=== PATIENT | female | born 1950 | race Caucasian/White ===

== ENCOUNTER → 2020-09-29 14:01 | Outpatient (BNVA) | payer BC, SELFPAY | PROVIDERS: PCP Internal Medicine; Visit Provider Hospitalist | DX: Z76.89 Persons encountering health services in other specified circumstances (principal) ==

== ENCOUNTER → 2020-12-02 14:53 | Outpatient (BNVA) | payer BC, SELFPAY | PROVIDERS: PCP Internal Medicine; Visit Provider Hospitalist ==

== ENCOUNTER → 2021-06-06 15:29 | Outpatient (BNVA) | payer BC, SELFPAY | PROVIDERS: Visit Provider Hospitalist ==

== ENCOUNTER → 2021-12-05 15:46 | Outpatient (BNVA) | payer BC, SELFPAY | PROVIDERS: PCP Internal Medicine; Visit Provider Hospitalist | DX: J43.2 Centrilobular emphysema (principal); R91.1 Solitary pulmonary nodule; R91.8 Other nonspecific abnormal finding of lung field; R06.00 Dyspnea, unspecified; K21.9 Gastro-esophageal reflux disease without esophagitis; Z85.118 Personal history of other malignant neoplasm of bronchus and lung ==

== ENCOUNTER → 2022-12-06 14:46 | Outpatient (BNVA) | payer BC, SELFPAY | PROVIDERS: PCP Internal Medicine; Visit Provider Hospitalist | DX: Z13.89 Encounter for screening for other disorder (principal) ==

== ENCOUNTER → 2023-03-07 14:39 | Outpatient (BNVA) | payer BC, SELFPAY | PROVIDERS: PCP Internal Medicine; Visit Provider Hospitalist ==

== ENCOUNTER 2023-03-28 14:28 | Outpatient (REF) | payer BC, SELFPAY ==
--- NOTE | 2023-03-28 15:29 | PFT_ITS ---
INDICATION: COPD. SPIROMETRY: The FEV1 to FVC of 62% with an FEV1 of 1.95 L which is 93% predicted and FVC of 3.14 L which is 113% predicted. No significant response to bronchodilators noted. The RAH93-30 decreased down to 42% predicted. Maximum voluntary ventilation 81% predicted. LUNG VOLUMES: Total lung capacity 107% predicted with an expiratory reserve volume of 65% predicted. DIFFUSION CAPACITY: DLCO of 61% predicted. COMPARISONS: None. INTERPRETATION: There is an obstructive ventilatory defect consistent with mild COPD. There is also evidence of small airway disease. No significant response to bronchodilators noted. Lung volumes are normal and the patient does have mild diffusion impairment secondary to her COPD and also had lung surgeries. Clinical correlation warranted. MD CARLA Sutherland/DARYL / [phone]
== END 2023-03-28 14:29 | disposition home or self-care (01) ==
LOC: HO.RESP 14:28
PROVIDERS: PCP Internal Medicine; Visit Provider Hospitalist
DX: J44.9 Chronic obstructive pulmonary disease, unspecified (principal)
CPT/HCPCS: 94010; 94727; 94729

== ENCOUNTER → 2023-03-28 15:29 | Outpatient (BNV) | payer BC, SELFPAY | PROVIDERS: PCP Internal Medicine; Visit Provider Hospitalist | DX: J44.9 Chronic obstructive pulmonary disease, unspecified (principal) | CPT/HCPCS: 94060; 94727; 94729 ==

== ENCOUNTER 2023-05-06 14:42 | Outpatient (AMB) | payer BC, SELFPAY ==
[2023-05-06 14:52] VITALS: BP 118/70; PULSE 63; RESP 17; O2SAT 94; BMI 30.5
--- NOTE | 2023-05-06 14:52 | MHC.OFFVIS ---
Intake Vital Signs 05/06/23 14:52 Height 5 ft 3 in Weight 172 lb BMI 30.5 BP 118/70 Blood Pressure Location Lt brachial Position Sitting Respiration 17 Pulse 63 Pulse Source Pulse Oximeter Pulse Oximetry (%) 94 Oxygen Delivery Method Room Air Intake Visit Reasons: PFT Results Follow Up Technology Sales Representative Required: No Allergies gabapentin [Neurontin] Allergy (Severe, Verified 05/06/23 14:55) Swelling latex Allergy (Severe, Verified 05/06/23 14:55) Swelling levofloxacin [Levaquin] Allergy (Severe, Verified 05/06/23 14:55) Swelling Aspirin Allergy (Severe, Uncoded 05/06/23 14:55) Swelling HPI HPI Comments History of Present Illness Details The patient is a 73-year-old woman known history of lung cancers status post resections in addition to COPD. Overall she is doing very well. She is staying active she denies any significant dyspnea on exertion she has been using the inhalers as prescribed. Her last CT scan of the chest to assess her pulmonary nodules was back in March 2019 to follow-up a new pulmonary nodule. The appeared to be stable. The patient has had waxing waning pulmonary nodules. At this point the patient should have another CT scan of the chest in March 2020. Otherwise patient is without any other complaints at this time. 03/25/2020 the patient is here for pulmonary follow-up visit. Overall she is doing well from a respiratory status. She does have some shortness of breath with activity, mild in severity. Does have cough intermittently. She does take respiratory medications without any significant issue. We did review her CT scan of the chest from 2019, 2018 and also 2018. She has had multiple pulmonary nodules and she has had a history of cancer. Most recent CT scan of the chest demonstrates she is a slight change in the consistency of the right upper lobe nodular density. It appears to be little more solid and slightly more elongated. Again this may be just away was caught or the resolution. Therefore, at this point we will repeat the CT scan in 6 months. 09/29/2020 the patient is here for pulmonary follow-up visit. Overall she does complaint of dyspnea on exertion. Moderate severity. Does not appear to be getting any better. She has gained some weight which may be contributing. We did look at her most recent CT scan of the chest that she had a [facility]. I personally reviewed the CT scan with the patient.. I do not see any concerning nodular densities. At this point we can go back to the once a year CT scans. December 02, 2020 the patient is here for pulmonary follow-up visit. Since we last spoke she was diagnosed with colon cancer and screening colonoscopy. She was relatively asymptomatic. She now went to [place] and now it will be undergoing surgery after they do a full evaluation. From a respiratory status she is doing okay. Does have some dyspnea on exertion [id number] severity. Does get better with rest. Her last CT scan of the chest was reassuring with stable pulmonary nodules without any evidence of any metastatic disease that we can see at this point to the lungs. The patient is medically optimized from a respiratory status and is doing well from a pulmonary standpoint and will be able to consent for surgery for both anesthesia and the surgical intervention that she needs to have in [place]. The patient understands the risks which include atelectasis, hypoxia, prolonged mechanical ventilation and pneumonia. The risks at this point her minimal for her and she is able to have surgery from a pulmonary standpoint. 06/06/2021 the patient is here for a pulmonary follow-up visit. Since we last spoke the patient did undergo surgery for an early stage colon cancer. She was able to get it fully resected. she did not require chemotherapy which is reassuring. She did have a repeat CT scan of the chest at [facility]. no obvious concerns noted. However, need to compared to the CT scan from [facility] to be sure completely. For the last few weeks she has noticed increasing shortness of breath with exertion moderate severity. She actually felt well after surgery. She has been using her Symbicort but typically just once a day. She needs to maximize at this time to twice a day and I did recommend she start Spiriva in conjunction to optimize his respiratory medication therapy. 12/05/2021 the patient is here for pulmonary follow-up visit. Overall the patient has been well from a respiratory status. She was concerned because her [facility] laboratory came back elevated. Therefore she underwent a PET/ CT scan at [facility]. They could not find any evidence of any cancer. she is now due for colonoscopy. From a pulmonary standpoint her CT scans have been stable. She is following closely with serial CT scans. She is complaining of chest congestion mucus buildup and raspiness of the voice. She does comment also that she has developed increased reflux symptoms. I do believe her reflux symptoms are aggravating her larynx and resulting in the raspiness and mucus buildup. 06/05/2022 the patient is here for a pulmonary follow-up visit. Overall she is doing well. She continues use her respiratory therapy. She does not see any significant improvement when she does use the inhalers I did advise again try to cut down a little bit in the he continues to do about the same. She does have dyspnea on exertion. She also complains of reflux disease. She does take omeprazole in the morning and also Pepcid at nighttime. He seems to be helping. She does have episodes where she loses the ability to breathe brief few seconds. This sound like laryngospasm. Explained to her that the triggers could be the cause including underlying laryngeal penetration for reflux and/or postnasal drip resulting living will spasms. She should be sleeping elevated and wanting the reflux diet. The patient will follow up in [place] for the abnormal CT will. I believe she has been undergo a CT scan of the chest available. However she will be following up with them at the end of the year. She will not sure that I get a copy of the CT scan of the chest will for week follow-up with pulmonary nodules. Once the patient is without any other complaints. 12/06/2022 the patient is here for a pulmonary follow-up visit. Overall she is doing well until several weeks ago when she started developing a worsening productive cough. Moderate in severity. Initially was productive with yellow sputum, but now is non productive. Denies fever or chills. She continues use her respiratory therapy. She does not see any significant improvement when she does use the inhalers. On exam, she does have some wheezing. I will prescribe a course of prednisone. 03/07/2023 the patient is here for a pulmonary follow-up visit. She complains of worsening shortness of breath with minimal activity. She has been struggling with her breathing. Moderate severity. She took a few days of the prednisone during the last visit because of the exacerbation but she stop the because her sugars were elevated. She continues on a respiratory medicine. Is only partially helpful. On exam she actually has relatively normal breath sounds. No significant rhonchi or wheezing noted. I do believe the patient has gained weight and she is more deconditioning. We did talk about getting pulmonary function studies and starting pulmonary rehabilitation. The patient will go ahead and proceed with this process. As far as the other alternative medications we can consider Daliresp as a good option to minimize the steroid use specially since she cannot take the prednisone because of the elevated blood sugars. Her last CT scan of the chest was back in August. Otherwise patient is doing well. Likely will need follow-up imaging studies the end of this year or next year. We will discuss that further during the next follow-up in the fall. 05/06/2023 the patient is here for a pulmonary follow-up visit. Overall the patient is doing well. She ended up having her pulmonary rehabilitation at the [facility] through a cancer survivorship program. This appears to be working much better. She has been feeling better less shortness of breath. She continues her respiratory therapy. We did review her pulmonary function studies demonstrating only a mild obstructive process. She does have moderate diffusion impairment but she has had multiple surgeries. Overall very reassuring PFTs. She is that a follow-up in [place] the next few months. She should have a CT scan of chest August 2024 in [place]. Otherwise she will continue with current respiratory therapy and will follow-up in 6 months time. If any issues arise the patient will call for further evaluation. [facility] Medical History (Updated 12/09/22 @ 21:24 by Morales Daniel MD) Carotid stenosis, asymptomatic Colon cancer COPD (chronic obstructive pulmonary disease) Dyspnea GERD (gastroesophageal reflux disease) Lung cancer Pre-op chest exam Pulmonary nodule Pulmonary nodules Social History (Updated 12/05/21 @ 15:54 by SHIRA Bose) Patient Tobacco Use Status: Former Tobacco user Tobacco use type: Cigarette Years Smoked: 20+ Years Review of Systems Const Denies night sweats ENT Denies change in voice, Denies lip swelling, Denies mouth pain, Reports nasal congestion, Reports nasal discharge and Denies tongue swelling Card Denies chest pain, Denies dyspnea and Reports dyspnea on exertion Resp Reports cough, Denies dyspnea and Reports dyspnea on exertion GI Reports dyspepsia and Reports heartburn Musc Denies no additional complaints Neuro Denies Neuro-related abnormal movements Psych Denies no additional complaints Hammad/Lymph Denies easy bleeding and Denies lymphadenopathy Aller/Immun Denies lip swelling and Denies tongue swelling Physical Exam Vital Signs: Last Vital Signs Pulse 63 05/06/23 14:52 Resp 17 05/06/23 14:52 BP 118/70 05/06/23 14:52 Pulse Ox 94 05/06/23 14:52 Oxygen Delivery Method Room Air 05/06/23 14:52 BMI result Body Mass Index 30.5 Const General: alert HEENT General nose exam: Abnormal external nose present and Nasal discharge present Eyes Pupils: Equal, round and reactive pupils present Neck Neck: Yes normal visual inspection, Yes full ROM and Yes no lymphadenopathy Chest Chest palpation & inspection: normal inspection of the chest Resp Effort & Inspection: normal respiratory effort Auscultation: no wheezes and diminished lung sounds Cardio Rate: regular rate Rhythm: regular rhythm Heart sounds: S1 normal heart sound present and S2 normal heart sound present GI Palpation (GI): Soft to palpation and nontender Auscultation: normal bowel sounds General: Yes no CVA tenderness Back/Spine/Pelvis Back: no CVA tenderness Skin General skin exam: rashes and/or lesions noted Neuro Cranial nerves: Yes Equal, round and reactive pupils present Assessment & Plan Assessment & Plan (1) COPD (chronic obstructive pulmonary disease): Code(s): J44.9 - Chronic obstructive pulmonary disease, unspecified Qualifiers: COPD type: COPD with acute exacerbation Qualified Code(s): J44.1 - Chronic obstructive pulmonary disease with (acute) exacerbation (2) Pulmonary nodules: Code(s): R91.8 - Other nonspecific abnormal finding of lung field (3) Dyspnea: Comment: Likely multifactorial. Does have ongoing COPD in addition to multiple lung resections. Code(s): R06.00 - Dyspnea, unspecified Qualifiers: Dyspnea type: dyspnea on exertion Qualified Code(s): R06.00 - Dyspnea, unspecified (4) Pulmonary nodule: Code(s): R91.1 - Solitary pulmonary nodule (5) GERD (gastroesophageal reflux disease): Code(s): K21.9 - Gastro-esophageal reflux disease without esophagitis Qualifiers: Esophagitis presence: without esophagitis Qualified Code(s): K21.9 - Gastro-esophageal reflux disease without esophagitis Plan Continue Symbicort continue Spiriva CT scan of the chest that be done [place] 09/04/2023 continue exercise regimen reflux diet Continue PPI cont Pepcid at night F/U 6 months Coding Level of Care Code Est Pt Level 4 (66866) Diagnoses COPD (chronic obstructive pulmonary disease) J44.1 COPD type: COPD with acute exacerbation Pulmonary nodules R91.8 Dyspnea R06.00 Dyspnea type: dyspnea on exertion Pulmonary nodule R91.1 GERD (gastroesophageal reflux disease) K21.9 Esophagitis presence: without esophagitis Time Spent (min) 17
== END 2023-05-06 15:20 | disposition home or self-care (01) ==
PROVIDERS: PCP Internal Medicine; Visit Provider Hospitalist
DX: J44.1 Chronic obstructive pulmonary disease with (acute) exacerbation (principal); R91.8 Other nonspecific abnormal finding of lung field; R06.00 Dyspnea, unspecified; R91.1 Solitary pulmonary nodule; K21.9 Gastro-esophageal reflux disease without esophagitis
CPT/HCPCS: 99214

== ENCOUNTER → 2023-05-06 14:42 | Outpatient (BNVA) | payer BC, SELFPAY | PROVIDERS: PCP Internal Medicine; Visit Provider Hospitalist ==

== ENCOUNTER 2023-12-23 14:29 | Outpatient (AMB) | payer BC, SELFPAY ==
[2023-12-23 14:35] VITALS: PULSE 84; O2SAT 94; BMI 28.3
--- NOTE | 2023-12-23 14:35 | MHC.OFFVIS ---
Intake Vital Signs 12/23/23 14:35 Height 5 ft 4 in Weight 165 lb BMI 28.3 Pulse 84 Pulse Source Pulse Oximeter Pulse Oximetry (%) 94 Oxygen Delivery Method Room Air Intake Visit Reasons: COPD Operating Room Assistant Required: No Allergies latex Allergy (Severe, Verified 12/23/23 14:36) Swelling levofloxacin [Levaquin] Allergy (Severe, Verified 12/23/23 14:36) Swelling Aspirin Allergy (Severe, Uncoded 12/23/23 14:36) Swelling HPI HPI Comments History of Present Illness Details The patient is a 73-year-old woman known history of lung cancers status post resections in addition to COPD. Overall she is doing very well. She is staying active she denies any significant dyspnea on exertion she has been using the inhalers as prescribed. Her last CT scan of the chest to assess her pulmonary nodules was back in March 2019 to follow-up a new pulmonary nodule. The appeared to be stable. The patient has had waxing waning pulmonary nodules. At this point the patient should have another CT scan of the chest in March 2020. Otherwise patient is without any other complaints at this time. 03/25/2020 the patient is here for pulmonary follow-up visit. Overall she is doing well from a respiratory status. She does have some shortness of breath with activity, mild in severity. Does have cough intermittently. She does take respiratory medications without any significant issue. We did review her CT scan of the chest from 2019, 2018 and also 2018. She has had multiple pulmonary nodules and she has had a history of cancer. Most recent CT scan of the chest demonstrates she is a slight change in the consistency of the right upper lobe nodular density. It appears to be little more solid and slightly more elongated. Again this may be just away was caught or the resolution. Therefore, at this point we will repeat the CT scan in 6 months. 09/29/2020 the patient is here for pulmonary follow-up visit. Overall she does complaint of dyspnea on exertion. Moderate severity. Does not appear to be getting any better. She has gained some weight which may be contributing. We did look at her most recent CT scan of the chest that she had a [facility]. I personally reviewed the CT scan with the patient.. I do not see any concerning nodular densities. At this point we can go back to the once a year CT scans. December 02, 2020 the patient is here for pulmonary follow-up visit. Since we last spoke she was diagnosed with colon cancer and screening colonoscopy. She was relatively asymptomatic. She now went to [place] and now it will be undergoing surgery after they do a full evaluation. From a respiratory status she is doing okay. Does have some dyspnea on exertion [id number]-gn-[id number] severity. Does get better with rest. Her last CT scan of the chest was reassuring with stable pulmonary nodules without any evidence of any metastatic disease that we can see at this point to the lungs. The patient is medically optimized from a respiratory status and is doing well from a pulmonary standpoint and will be able to consent for surgery for both anesthesia and the surgical intervention that she needs to have in [place]. The patient understands the risks which include atelectasis, hypoxia, prolonged mechanical ventilation and pneumonia. The risks at this point her minimal for her and she is able to have surgery from a pulmonary standpoint. 06/06/2021 the patient is here for a pulmonary follow-up visit. Since we last spoke the patient did undergo surgery for an early stage colon cancer. She was able to get it fully resected. she did not require chemotherapy which is reassuring. She did have a repeat CT scan of the chest at [facility]. no obvious concerns noted. However, need to compared to the CT scan from [facility] to be sure completely. For the last few weeks she has noticed increasing shortness of breath with exertion moderate severity. She actually felt well after surgery. She has been using her Symbicort but typically just once a day. She needs to maximize at this time to twice a day and I did recommend she start Spiriva in conjunction to optimize his respiratory medication therapy. 12/05/2021 the patient is here for pulmonary follow-up visit. Overall the patient has been well from a respiratory status. She was concerned because her [facility] laboratory came back elevated. Therefore she underwent a PET/ CT scan at [facility]. They could not find any evidence of any cancer. she is now due for colonoscopy. From a pulmonary standpoint her CT scans have been stable. She is following closely with serial CT scans. She is complaining of chest congestion mucus buildup and raspiness of the voice. She does comment also that she has developed increased reflux symptoms. I do believe her reflux symptoms are aggravating her larynx and resulting in the raspiness and mucus buildup. 06/05/2022 the patient is here for a pulmonary follow-up visit. Overall she is doing well. She continues use her respiratory therapy. She does not see any significant improvement when she does use the inhalers I did advise again try to cut down a little bit in the he continues to do about the same. She does have dyspnea on exertion. She also complains of reflux disease. She does take omeprazole in the morning and also Pepcid at nighttime. He seems to be helping. She does have episodes where she loses the ability to breathe brief few seconds. This sound like laryngospasm. Explained to her that the triggers could be the cause including underlying laryngeal penetration for reflux and/or postnasal drip resulting living will spasms. She should be sleeping elevated and wanting the reflux diet. The patient will follow up in [place] for the abnormal CT will. I believe she has been undergo a CT scan of the chest available. However she will be following up with them at the end of the year. She will not sure that I get a copy of the CT scan of the chest will for week follow-up with pulmonary nodules. Once the patient is without any other complaints. 12/06/2022 the patient is here for a pulmonary follow-up visit. Overall she is doing well until several weeks ago when she started developing a worsening productive cough. Moderate in severity. Initially was productive with yellow sputum, but now is non productive. Denies fever or chills. She continues use her respiratory therapy. She does not see any significant improvement when she does use the inhalers. On exam, she does have some wheezing. I will prescribe a course of prednisone. 03/07/2023 the patient is here for a pulmonary follow-up visit. She complains of worsening shortness of breath with minimal activity. She has been struggling with her breathing. Moderate severity. She took a few days of the prednisone during the last visit because of the exacerbation but she stop the because her sugars were elevated. She continues on a respiratory medicine. Is only partially helpful. On exam she actually has relatively normal breath sounds. No significant rhonchi or wheezing noted. I do believe the patient has gained weight and she is more deconditioning. We did talk about getting pulmonary function studies and starting pulmonary rehabilitation. The patient will go ahead and proceed with this process. As far as the other alternative medications we can consider Daliresp as a good option to minimize the steroid use specially since she cannot take the prednisone because of the elevated blood sugars. Her last CT scan of the chest was back in August. Otherwise patient is doing well. Likely will need follow-up imaging studies the end of this year or next year. We will discuss that further during the next follow-up in the fall. 05/06/2023 the patient is here for a pulmonary follow-up visit. Overall the patient is doing well. She ended up having her pulmonary rehabilitation at the [facility] through a cancer survivorship program. This appears to be working much better. She has been feeling better less shortness of breath. She continues her respiratory therapy. We did review her pulmonary function studies demonstrating only a mild obstructive process. She does have moderate diffusion impairment but she has had multiple surgeries. Overall very reassuring PFTs. She is that a follow-up in [place] the next few months. She should have a CT scan of chest August 2024 in [place]. Otherwise she will continue with current respiratory therapy and will follow-up in 6 months time. If any issues arise the patient will call for further evaluation. 12/23/2023 the patient is here for a pulmonary follow-up visit. Overall the patient has been doing well from a respiratory status. She has been following closely with [facility]. She has had a history of lung cancer x2 and more recently colon cancer. She has been getting CT scans of the abdomen and chest every 6 months in [place]. The patient is concerned because now she is going to change insurance companies and uncovered enough are any more. She is going to need a local oncologist to continue monitoring closely her cancer history. She has been cancer free now for about 3 years. I will refer her to a local hemo tolerating oncology's specialist. In the meantime the patient continues use respiratory therapy with good effect. Although, the appeared to be very expensive specially the Spiriva. Will go ahead and switch her over to Breztri to simplify her regimen. No need for prednisone. She does not use a rescue inhaler often. [facility] Medical History (Updated 12/23/23 @ 14:51 by Morales Daniel MD) Carotid stenosis, asymptomatic GERD (gastroesophageal reflux disease) Colon cancer Pre-op chest exam Lung cancer Pulmonary nodules Dyspnea COPD (chronic obstructive pulmonary disease) Pulmonary nodule Social History (Updated 12/05/21 @ 15:54 by SHIRA Bose) Patient Tobacco Use Status: Former Tobacco user Tobacco use type: Cigarette Years Smoked: 20+ Years Review of Systems Const Denies night sweats ENT Denies change in voice, Denies lip swelling, Denies mouth pain, Reports nasal congestion, Reports nasal discharge and Denies tongue swelling Card Denies chest pain, Denies dyspnea and Reports dyspnea on exertion Resp Reports cough, Denies dyspnea and Reports dyspnea on exertion GI Reports dyspepsia and Reports heartburn Musc Denies no additional complaints Neuro Denies Neuro-related abnormal movements Psych Denies no additional complaints Hammad/Lymph Denies easy bleeding and Denies lymphadenopathy Aller/Immun Denies lip swelling and Denies tongue swelling Physical Exam Vital Signs: Last Vital Signs Pulse 84 12/23/23 14:35 Pulse Ox 94 12/23/23 14:35 Oxygen Delivery Method Room Air 12/23/23 14:35 BMI result Body Mass Index 28.3 Const General: alert HEENT General nose exam: Abnormal external nose present and Nasal discharge present Eyes Pupils: Equal, round and reactive pupils present Neck Neck: Yes normal visual inspection, Yes full ROM and Yes no lymphadenopathy Chest Chest palpation & inspection: normal inspection of the chest Resp Effort & Inspection: normal respiratory effort Auscultation: no wheezes and diminished lung sounds Cardio Rate: regular rate Rhythm: regular rhythm Heart sounds: S1 normal heart sound present and S2 normal heart sound present GI Palpation (GI): Soft to palpation and nontender Auscultation: normal bowel sounds General: Yes no CVA tenderness Back/Spine/Pelvis Back: no CVA tenderness Skin General skin exam: rashes and/or lesions noted Neuro Cranial nerves: Yes Equal, round and reactive pupils present Assessment & Plan Assessment & Plan (1) COPD (chronic obstructive pulmonary disease): Code(s): J44.9 - Chronic obstructive pulmonary disease, unspecified Qualifiers: COPD type: COPD with acute exacerbation Qualified Code(s): J44.1 - Chronic obstructive pulmonary disease with (acute) exacerbation (2) Pulmonary nodules: Code(s): R91.8 - Other nonspecific abnormal finding of lung field (3) Dyspnea: Comment: Likely multifactorial. Does have ongoing COPD in addition to multiple lung resections. Code(s): R06.00 - Dyspnea, unspecified Qualifiers: Dyspnea type: dyspnea on exertion Qualified Code(s): R06.00 - Dyspnea, unspecified (4) Pulmonary nodule: Code(s): R91.1 - Solitary pulmonary nodule (5) GERD (gastroesophageal reflux disease): Code(s): K21.9 - Gastro-esophageal reflux disease without esophagitis Qualifiers: Esophagitis presence: without esophagitis Qualified Code(s): K21.9 - Gastro-esophageal reflux disease without esophagitis Plan Continue Symbicort continue Spiriva Trial Breztri CT scan of the chest that be done [place] continue exercise regimen reflux diet Continue PPI cont Pepcid at night referral to local oncologist to monitor her colon CA. No evidence of recurrence, but now needs to see a new specialist with her change in coverage F/U 6 months Orders: Referrals Hematology & Oncology Referral C18.9 - Malignant neoplasm of colon, unspecified, C34.90 - Malignant neoplasm of unspecified part of unspecified bronchus or lung Medications: New gyfjxmhjkw-bdavmtmp-divwlwcamf 160-9-4.8 mcg/actuation (Breztri Aerosphere) 2 inhalations inhalation BID 10.7 grams 0RF 30 days Coding Level of Care Code Est Pt Level 4 (29051) Diagnoses Chronic obstructive pulmonary disease with acute exacerbation J44.1 COPD type: COPD with acute exacerbation Pulmonary nodules R91.8 Dyspnea on exertion R06.00 Dyspnea type: dyspnea on exertion Pulmonary nodule R91.1 Gastroesophageal reflux disease without esophagitis K21.9 Esophagitis presence: without esophagitis Time Spent (min) 17
== END 2023-12-23 14:57 | disposition home or self-care (01) ==
PROVIDERS: PCP Internal Medicine; Visit Provider Hospitalist
DX: J44.1 Chronic obstructive pulmonary disease with (acute) exacerbation (principal); R91.8 Other nonspecific abnormal finding of lung field; R06.00 Dyspnea, unspecified; R91.1 Solitary pulmonary nodule; K21.9 Gastro-esophageal reflux disease without esophagitis
CPT/HCPCS: 99214

== ENCOUNTER → 2023-12-23 14:29 | Outpatient (BNVA) | payer BC, SELFPAY | PROVIDERS: PCP Internal Medicine; Visit Provider Hospitalist ==

== ENCOUNTER 2024-04-23 13:42 | Outpatient (REF) | payer MEDICARE, SELFPAY ==
--- NOTE | ~2024-04-23 | MM_ITS ---
EXAMINATION: MM SCREENING DIGITAL BREAST TOMOSYNTHESIS, BILATERAL CLINICAL INFORMATION: Screening. Asymptomatic. COMPARISON: Mammography: This study is compared with prior exams dating back to 2018. TECHNIQUE: Digital breast tomosynthesis is performed in both the craniocaudal and mediolateral oblique views along with computer-aided detection (CAD). Synthesized 2D images are generated from the tomosynthesis. FINDINGS: There are scattered areas of fibroglandular density (ACR BI-RADS breast composition Category b). There are no significant masses, abnormal calcifications, or other abnormalities. MM/MM tomosynthesis screening BI IMPRESSION: No mammographic evidence of malignancy. ASSESSMENT: BI-RADS BI-RADS 1 - Negative RECOMMENDATION: Routine annual mammography screening. 1 year F/U This examination should not preclude the clinical evaluation of a suspicious palpable abnormality. This patient's information was entered into a reminder system with a target due date for their next mammogram. Electronically signed by: Johana Nettles MD 05/21/2024 08:21 AM EDT
== END 2024-04-23 13:43 | disposition home or self-care (01) ==
LOC: HO.MAMMO 13:42
PROVIDERS: PCP Internal Medicine; Visit Provider Internal Medicine
DX: Z12.31 Encounter for screening mammogram for malignant neoplasm of breast (principal)
CPT/HCPCS: 77063; 77067

== ENCOUNTER → 2024-04-23 13:45 | Outpatient (BNV) | payer MEDICARE, SELFPAY | PROVIDERS: PCP Internal Medicine; Visit Provider Radiology Diagnostic Radiology | DX: Z12.31 Encounter for screening mammogram for malignant neoplasm of breast (principal) | CPT/HCPCS: 77063; 77067 ==

== ENCOUNTER 2024-05-06 23:04 | Emergency (ER) | payer MEDICARE, SELFPAY ==
--- NOTE | 2024-05-06 | ECG_ITS ---
Test Reason : ABD Pain Blood Pressure : / mmHG Vent. Rate : 098 BPM Atrial Rate : 098 BPM P-R Int : 152 ms QRS Dur : 074 ms QT Int : 358 ms P-R-T Axes : 079 002 073 degrees QTc Int : 457 ms Sinus rhythm with occasional Premature ventricular complexes Possible Left atrial enlargement Possible Inferior infarct , age undetermined Anterior infarct , age undetermined Abnormal ECG No previous ECGs available Referred By: Generic ED Physician Electronically Signed By:SARAH LORENZO
--- NOTE | ~2024-05-06 | XR_ITS ---
EXAMINATION: XR ABDOMEN KUB CLINICAL INDICATION: Hernia. Rule out obstruction. COMPARISON: CT abdomen and pelvis 12/11/2023 TECHNIQUE: AP view of the abdomen. FINDINGS: Intestinal chain sutures are projected over the right upper abdominal quadrant. The visualized lung bases are clear. Scattered bowel gas is noted in nondistended intestinal segments. A 1 cm diameter dystrophic calcification is projected over the inferior pole of the left kidney corresponds to findings associated with the left kidney noted contemporaneously on the comparison CT of abdomen and pelvis 12/11/2023. Scattered pelvic phleboliths are visualized. No gross free intraperitoneal gas noted. XR/XR KUB IMPRESSION: No acute abnormalities identified. Normal bowel gas pattern. No evidence of obstruction or ileus. Electronically signed by: Tadeo Olea MD 05/07/2024 04:21 AM EDT
[2024-05-06 23:07] VITALS: BP 90/63; PULSE 104; RESP 18; TEMP 36.6; O2SAT 98; BMI 28.1
[2024-05-06 23:35] LABS: Basophils Percent Auto 0.5 % (0-2); Eosinophils Absolute Auto 0.3 X10*3/uL (0.0-0.4); Eosinophils Percent Auto 3.3 % (0-4); Hematocrit 42.7 % (37.0-47.0); Hemoglobin 14.7 g/dl (12.0-16.0); Imm Gran Abs Auto 0.01 X10*3/uL (0.00-0.03); Imm Gran Pct Auto 0.1 % (0.0-0.4); Lymphocytes Absolute Auto 1.3 X10*3/uL (1.2-4.9); Lymphocytes Percent Auto 16.3 % (20-40); MANUAL DIFF FLAG NO; Mean Corpuscular HGB Conc 34.4 g/dl (31.0-35.0); Mean Corpuscular Hemoglobin 29.8 pg (27.0-33.0); Mean Corpuscular Volume 86.6 fL (80.0-98.0); Mean Platelet Volume 9.1 fL (9.4-12.3); Monocytes Absolute Auto 0.8 X10*3/uL (0.1-1.2); Neutrophils Absolute Auto 5.5 x10*3/uL (2.0-8.3); Neutrophils Percent Auto 69.8 % (45-73); Platelet Count 242 X10*3/uL (160-400); Red Blood Count 4.93 X10*6/uL (4.20-5.50); Red Cell Distribution Width 12.2 % (11.0-16.0); White Blood Count 7.9 X10*3/uL (4.8-10.8)
[2024-05-06 23:48] LABS: Alanine Aminotransferase 27 U/L (0-31); Alkaline Phosphatase 63 U/L (39-117); Anion Gap 17 (12-20); Aspartate Amino Transferase 27 U/L (5-31); Bilirubin Total 1.1 mg/dL (0.0-1.0); Blood Urea Nitrogen 27 mg/dL (9-16); Calcium 9.5 mg/dL (8.4-10.2); Carbon Dioxide 20 mmol/L (22-29); Chloride 108 mmol/L (96-108); Creatinine Clr Calc Pharmacy 43.1; Estimated Glomerular Filt Rate 47; Glucose Random 201 mg/dL (60-115); Lipase 19 U/L (8-78); Sodium 141 mmol/L (135-145); Total Protein 6.8 g/dL (6.5-8.0)
[2024-05-07 01:22] LABS: Appearance Urine Clear; Color Urine Yellow; Glucose Urine UA >=1000 mg/dL (Negative); Leukocyte Esterase Urine Negative (Negative); Nitrite Urine Negative (Negative); Specific Gravity - Urine >= 1.030 (1.005-1.025); UMIC TRIGGER UACC YES; Urine Blood Negative (Negative); Urine Ketones Trace mg/dL (Negative); Urine Protein Negative (Neg-Trace)
[2024-05-07 01:24] LABS: Bacteria Urine None Seen (None Seen); Hyaline Casts Urine 0-2 /LPF (0-2); RBC Urine 0-2 /HPF (0-2); WBC Urine 0-5 /HPF (0-5)
[2024-05-07 02:00] VITALS: BP 99/66; PULSE 80; RESP 16; TEMP 37.1; O2SAT 95
--- NOTE | 2024-05-07 02:31 | PC.NURSE ---
Pt is a 74 y/o female who presents for evaluaton of ongoing, intermittent abd pain. Pt reports she has multiple known hernias secondary to colon surgery, but pain has become intolerable. Pain has been significant over the past 1 1/2 weeks and nothing seems to help resolve or decrease it, eveything seems to make it worse. Denies any problems voiding, recent travel, recent illness or fever, and any trauma. Does reports some nausea, but denies vomiting. No chest pain or difficulty breathing. Food and fluid WNL for pt and all medications have been taken as prescribed. No other concerns or complaints for this visit.
[2024-05-07 05:55] VITALS: BP 94/69; PULSE 97; RESP 18; TEMP 36.6; O2SAT 97
--- NOTE | 2024-05-07 06:08 | ED_ITS ---
HPI - Abdominal Pain General Chief Complaint: Abdominal Pain Stated Complaint: Abd pain ? hernia Time Seen by Provider: 05/07/24 03:39 Source: patient Mode of arrival: ambulatory Limitations: no limitations History of Present Illness ED Provider: Dr. Paula HPI narrative: Patient with a history of Colon CA with resection. She has surgical hernias for years. Over the past few weeks she has had increasing abdominal pain over the surgical scar and feels like her hernias are getting worse. She denies nausea and vomiting. Related Data Home Medications ?Medication ?Instructions ?Recorded ?Confirmed clopidogrel 75 mg tablet 75 mg PO DAILY 09/29/20 12/02/20 ezetimibe 10 mg tablet 10 mg PO DAILY 09/29/20 12/02/20 flu vac qs 2019(4 yr up)CD(PF) 60 ml IM 09/29/20 12/02/20 mcg(15 mcgx4)/0.5 mL IM syringe lorazepam 0.5 mg tablet 0.5 mg PO TID PRN 09/29/20 12/02/20 losartan 50 mg tablet 50 mg PO DAILY 09/29/20 12/02/20 nitroglycerin 0.4 mg sublingual mg sublingual 09/29/20 12/02/20 tablet rosuvastatin 40 mg tablet 40 mg PO DAILY 09/29/20 12/02/20 vortioxetine 10 mg tablet 10 mg PO DAILY 09/29/20 12/02/20 empagliflozin 25 mg tablet 25 mg PO DAILY 12/02/20 12/02/20 nystatin 100,000 unit/gram topical topical BID 12/06/22 powder (Nyamy) omeprazole 20 mg capsule,delayed 20 mg PO DAILY 12/06/22 release mirabegron 25 mg tablet,extended 25 mg PO DAILY 03/07/23 release 24 hr (Myrbetriq) Previous Rx's ?Medication ?Instructions ?Recorded famotidine 40 mg tablet (Pepcid) 40 mg PO BEDTIME #90 tabs 06/05/22 budesonide-formoterol HFA 160 2 puff PO BID #30.6 grams 03/28/23 mcg-4.5 mcg/actuation aerosol inhaler albuterol sulfate 90 mcg/actuation 2 inh inhalation Q6H PRN shortness 05/21/23 aerosol inhaler of breath or wheezing 30 days #18 grams budesonide 160 mcg-glycopyr 9 2 inh inhalation BID 30 days #10.7 12/23/23 mcg-formot 4.8 mcg/actuation HFA grams inhaler (Breztri Aerosphere) tiotropium bromide 2.5 2 inh PO DAILY #12 grams 04/14/24 mcg/actuation mist for inhalation (Spiriva Respimat) oxycodone 5 mg tablet 5 mg PO TID PRN severe pain (scale 05/13/24 score 7-10) #10 tabs Allergies Allergy/AdvReac Type Severity Reaction Status Date / Time latex Allergy Severe Swelling Verified 05/13/24 11:40 levofloxacin [Levaquin] Allergy Severe Swelling Verified 05/13/24 11:40 Aspirin Allergy Severe Swelling Uncoded 05/13/24 11:40 Review of Systems Review of Systems Yes all other systems are reviewed and are negative Denies Sensory deficit (Neuro) [facility] Past Medical History Medical History Carotid stenosis, asymptomatic GERD (gastroesophageal reflux disease) Colon cancer Pre-op chest exam Lung cancer Pulmonary nodules Dyspnea COPD (chronic obstructive pulmonary disease) Pulmonary nodule Social History Social History Patient Tobacco Use Status: Former Tobacco user Tobacco use type: Cigarette Years Smoked: 20+ Years Advance Directives: No Advance Directives Information Provided: Yes Do you have a plan to hurt others: No Plan Physical Exam ED Vital Signs: Vital Signs - 24 hr 05/06/24 23:07 05/07/24 02:00 05/07/24 05:55 Temperature 97.8 F 98.7 F 97.9 F Pulse Rate 104 H 80 97 Respiratory Rate 18 16 18 Blood Pressure 90/63 99/66 94/69 Pulse Oximetry 98 95 97 Oxygen Delivery Method Room Air Room Air Room Air BMI result Body Mass Index 28.1 Const General: healthy appearing Nutritional Appearance: average body habitus Orientation/consciousness: oriented to person and patient oriented x3 Limitations: no limitations HENMT Head: Yes normal to inspection Ears: external ears normal General nose exam: Normal external nose present Mouth: Normal oral and palatal mucosa present and oropharynx normal Throat: Yes posterior oropharynx normal Eyes General: appearance normal, both eyes and all related structures Neck Neck: Yes normal visual inspection Chest Chest palpation & inspection: normal inspection of the chest Resp Auscultation: clear to auscultation bilaterally Cardio Jugular venous distension: no JVD Rate: regular rate Rhythm: regular rhythm Heart sounds: S1 normal heart sound present and S2 normal heart sound present GI Other: multiple hernias reduced with pressure, no evidence of incarceration Auscultation: normal bowel sounds General: Yes no CVA tenderness Back/Spine/Pelvis Back: no CVA tenderness Skin General skin exam: no rashes or lesions noted Neuro General: oriented to person and patient oriented x3 Cranial nerves: Yes CN's II-XII intact bilaterally Motor exam (neuro): 5/5 motor strength present throughout Sensory Exam: No Sensory deficit (Neuro) Extrem General: Yes normal to inspection Psych Appearance: grossly normal Course Reevaluation(s) Reevaluation #1: Hernias reduced, KUB with no obstruction, no elevated WBC will refer to Dr. Esteves Time: 06:15 Medical Decision Making Differential Diagnosis Differential Diagnoses: The differential diagnosis associated with the presentation includes (inarcerated hernia, bowel obstruction) Admission/Observation Consideration of admission/observation: Escalation of care including admission/observation considered (upon arrival patient considered for admission) Lab Data 05/06/24 23:31 05/06/24 23:31 Labs: Lab Results 05/06/24 05/07/24 Range/Units 23:31 01:15 WBC 7.9 (4.8-10.8) X10*3/uL RBC 4.93 (4.20-5.50) X10*6/uL Hgb 14.7 (12.0-16.0) g/dl Hct 42.7 (37.0-47.0) % MCV 86.6 (80.0-98.0) fL MCH 29.8 (27.0-33.0) pg MCHC 34.4 (31.0-35.0) g/dl RDW 12.2 (11.0-16.0) % Plt Count 242 (160-400) X10*3/uL MPV 9.1 L (9.4-12.3) fL Immature Gran % (Auto) 0.1 (0.0-0.4) % Neut % (Auto) 69.8 (45-73) % Lymph % (Auto) 16.3 L (20-40) % [place] % (Auto) 10.0 (2-11) % Eos % (Auto) 3.3 (0-4) % Baso % (Auto) 0.5 (0-2) % Lymph # (Auto) 1.3 (1.2-4.9) X10*3/uL [place] # (Auto) 0.8 (0.1-1.2) X10*3/uL Eos # (Auto) 0.3 (0.0-0.4) X10*3/uL Baso # (Auto) 0.0 (0.0-0.2) X10*3/uL Abs Immat Gran (auto) 0.01 (0.00-0.03) X10*3/uL Absolute Neuts (auto) 5.5 (2.0-8.3) x10*3/uL Absolute Nucleated RBC 0.000 (0.0-0.012) X10*3/uL Nucleated RBC % (auto) 0.0 (0.0-0.2) /100WBC Sodium 141 (135-145) mmol/L Potassium 4.0 (3.3-5.1) mmol/L Chloride 108 (96-108) mmol/L Carbon Dioxide 20 L (22-29) mmol/L Anion Gap 17 (12-20) BUN 27 H (9-16) mg/dL Creatinine 1.13 (0.5-1.4) mg/dL Estim Creat Clear Calc 43.1 Estimated GFR 47 Random Glucose 201 H (60-115) mg/dL Calcium 9.5 (8.4-10.2) mg/dL Total Bilirubin 1.1 H (0.0-1.0) mg/dL AST 27 (5-31) U/L ALT 27 (0-31) U/L Alkaline Phosphatase 63 (39-117) U/L Total Protein 6.8 (6.5-8.0) g/dL Albumin 4.0 (3.5-5.0) g/dL Lipase 19 (8-78) U/L Urine Color Yellow Urine Appearance Clear Urine pH 5.0 (5.0-9.0) Ur Specific [place] >= 1.030 H (1.005-1.025) Urine Protein Negative (Neg-Trace) mg/dL Urine Glucose (UA) >=1000 H (Negative) mg/dL Urine Ketones Trace (Negative) mg/dL Urine Blood Negative (Negative) Urine Nitrite Negative (Negative) Ur Leukocyte Esterase Negative (Negative) Urine RBC 0-2 (0-2) /HPF Urine WBC 0-5 (0-5) /HPF Ur Squamous Epith Cells 3-5 (0-2) /HPF Urine Bacteria None Seen (None Seen) Hyaline Casts 0-2 (0-2) /LPF Independent Interpretation I performed an independent interpretation of an: Plain X-Ray (KUB: no obstruction) Tests considered The following testing was considered but not selected: CT of abdomen considered but patient with soft abdomen easily reduced hernias, and no obstruction on KUB Prescription Management I considered prescription management with: Antibiotic (no UTI seen) Discharge Plan Discharge Clinical Impression: Abdominal pain, Herniation through surgical site Patient Disposition: Home, Self-Care Instructions: Incisional Hernia (DC), Ventral Hernia (ED) Prescriptions: No Action budesonide-formoterol 160-4.5 mcg/actuation HFA aerosol inhaler 2 puff PO BID Qty: 30.6 3RF albuterol sulfate 90 mcg/actuation HFA aerosol inhaler 2 inh inhalation Q6H PRN (Reason: shortness of breath or wheezing) 30 Days Qty: 18 12RF Spiriva Respimat 2.5 mcg/actuation mist 2 inh PO DAILY Qty: 12 3RF oxycodone 5 mg tablet 5 mg PO TID PRN (Reason: severe pain (scale score 7-10)) Qty: 10 0RF Rx Instructions: Partial Fill upon patient request. You may cut tablets in half Trintellix 10 mg tablet 10 mg PO DAILY clopidogrel 75 mg tablet 75 mg PO DAILY lorazepam 0.5 mg tablet 0.5 mg PO TID PRN rosuvastatin 40 mg tablet 40 mg PO DAILY ezetimibe 10 mg tablet 10 mg PO DAILY losartan 50 mg tablet 50 mg PO DAILY Flucelvax Quad 2383-0962 (PF) 60 mcg (15 mcg x 4)/0.5 mL syringe IM nitroglycerin 0.4 mg tablet, sublingual sublingual empagliflozin 25 mg tablet 25 mg PO DAILY omeprazole 20 mg capsule,delayed release(DR/EC) 20 mg PO DAILY nystatin [Nyamyc] 100,000 unit/gram powder topical BID Myrbetriq 25 mg tablet extended release 24 hr 25 mg PO DAILY famotidine [Pepcid] 40 mg tablet 40 mg PO BEDTIME Qty: 90 3RF Breztri Aerosphere 160-9-4.8 mcg/actuation HFA aerosol inhaler 2 inh inhalation BID 30 Days Qty: 10.7 0RF Referrals: Anthony Esteves MD [Physician] - 5 days Interventions: ED Discharge Assessment Last Done: 05/07/24 06:23 Discharge Date/Time: 05/07/24 06:25 Print Language: [place]ian
--- NOTE | 2024-05-07 06:08 | PC.NURSE ---
Pt is waiting to interface with the provider and review test results, eager to go home. Expressed concern about being able to stay away to drive. Provider aware.
[2024-05-07 06:23] VITALS: BP 94/69; PULSE 90; RESP 16; TEMP 37
== END 2024-05-07 06:25 | disposition home or self-care (01) ==
PROVIDERS: Emergency Provider Emergency Medicine; PCP Internal Medicine
DX: K43.2 Incisional hernia without obstruction or gangrene (principal); R10.9 Unspecified abdominal pain; E78.5 Hyperlipidemia, unspecified; J44.9 Chronic obstructive pulmonary disease, unspecified; Z85.038 Personal history of other malignant neoplasm of large intestine; Z79.02 Long term (current) use of antithrombotics/antiplatelets; Z79.899 Other long term (current) drug therapy; Z87.891 Personal history of nicotine dependence
CPT/HCPCS: 36415; 74018; 80053; 81001; 83690; 85025; 93005; 99283; 99284

== ENCOUNTER 2024-05-13 11:36 | Emergency (ER) | payer MEDICARE, BC, SELFPAY ==
--- NOTE | ~2024-05-13 | CT_ITS ---
EXAMINATION: CT ABDOMEN AND PELVIS WITH CONTRAST CLINICAL INFORMATION: Lower abdominal pain COMPARISON: CT scan abdomen and pelvis December 11, 2023 TECHNIQUE: Multidetector volumetric images were obtained from the superior aspect of the liver through the pubic symphysis following administration 85 mL of Omnipaque 350 intravenous contrast. Sagittal and coronal reformatted images were obtained on the technologist's workstation. Oral contrast: No This CT examination was performed using dose optimization techniques as appropriate, variously including the following: *Automated exposure control *Adjustment of mA and/or kV according to patient size (this includes techniques or standardized protocols for targeted exams where dose is matched to indication/reason for exam; i.e. extremities or head) *Use of iterative reconstruction technique DLP: 548 mGy-cm FINDINGS: LUNG BASES: Emphysematous changes of lungs bases. Mild coarse increased lung markings.. Moderate-sized hiatal hernia. LIVER, GALLBLADDER, AND BILIARY TREE: The liver is normal in size, shape, and attenuation. No focal hepatic lesion or biliary ductal dilatation is present. The gallbladder is unremarkable with no evidence of radiopaque gallstones, gallbladder wall thickening, or obvious pericholecystic inflammatory changes. PANCREAS: Unremarkable. SPLEEN: Unremarkable. ADRENAL GLANDS: Unremarkable. KIDNEYS AND URETERS: The kidneys are normal in size, shape, and attenuation. Bilateral parapelvic cysts. No hydronephrosis, hydroureter, or calculi seen. No perinephric stranding. BLADDER: Unremarkable. GASTROINTESTINAL TRACT: Status post partial right hemicolectomy. Anastomosis is intact. There are a few scattered diverticula of the sigmoid colon. No evidence of diverticulitis. No acute change in the bowel. No bowel obstruction. No bowel wall thickening or edema. Small to moderate volume of stool in the colon. Moderate-sized hiatal hernia. ABDOMINAL WALL: No significant hernia is appreciated. LYMPH NODES: Normal. VASCULAR: Vascular desiccation as well as aorta and iliac arteries. There is no aneurysm. PELVIC VISCERA: Unremarkable. OSSEOUS STRUCTURES: Unremarkable. CT/CT abdomen pelvis w IV con IMPRESSION: 1. No acute abnormality CT scan abdomen pelvis. 2. Status post partial right hemicolectomy. Diverticulosis sigmoid colon. No acute abnormality of bowel. 3. Moderate-sized hiatal hernia. Fleischner guidelines were followed. Electronically signed by: Rod Gomez MD 05/13/2024 05:36 PM EDT RP
[2024-05-13 11:38] VITALS: BP 119/80; PULSE 103; RESP 19; TEMP 36.9; O2SAT 96; BMI 28.2
--- NOTE | 2024-05-13 11:38 | ED.GENADULT ---
HPI - General Adult General Chief complaint: Abdominal Pain Stated complaint: abd pain Time Seen by Provider: 05/13/24 15:01 Source: patient and RN notes reviewed Mode of arrival: ambulatory Limitations: no limitations History of Present Illness ED Provider: Lennie Mallory PA-C HPI narrative: This is a 74-year-old female, with a history of colon cancer with resection, abdominal hernias, diabetes, and COPD, who presents emergency department with complaints of abdominal pain and diarrhea. Patient reports that she was seen here about 1 week ago due to hernia pain. She states that her hernia was reduced and her symptoms improve. Patient states that while she was at the store yesterday she developed ?explosive diarrhea?. She states that she had approximately 7 episodes of stool. No bloody or black stool. She states that today she had 1 episode of abdominal pain, and 1 episode of diarrhea, she states that she took Imodium, and has not had any bowel movement since. No recent travel, surgeries, or hospitalizations. No recent antibiotic use. She did [place] [employer] several days ago however states that no one else developed her symptoms. No sick contacts. No other complaints or concerns at this time. MD complaint: AP, N/D Radiation: non-radiation Severity: moderate Pain Consistency: constant Relieving factors: none Exacerbating factors: none Associated symptoms: denies other symptoms Treatments prior to arrival: none Related Data Home Medications ?Medication ?Instructions ?Recorded ?Confirmed clopidogrel 75 mg tablet 75 mg PO DAILY 09/29/20 12/02/20 ezetimibe 10 mg tablet 10 mg PO DAILY 09/29/20 12/02/20 flu vac qs 2019(4 yr up)CD(PF) 60 ml IM 09/29/20 12/02/20 mcg(15 mcgx4)/0.5 mL IM syringe lorazepam 0.5 mg tablet 0.5 mg PO TID PRN 09/29/20 12/02/20 losartan 50 mg tablet 50 mg PO DAILY 09/29/20 12/02/20 nitroglycerin 0.4 mg sublingual mg sublingual 09/29/20 12/02/20 tablet rosuvastatin 40 mg tablet 40 mg PO DAILY 09/29/20 12/02/20 vortioxetine 10 mg tablet 10 mg PO DAILY 09/29/20 12/02/20 empagliflozin 25 mg tablet 25 mg PO DAILY 12/02/20 12/02/20 nystatin 100,000 unit/gram topical topical BID 12/06/22 powder (Nyamy) omeprazole 20 mg capsule,delayed 20 mg PO DAILY 12/06/22 release mirabegron 25 mg tablet,extended 25 mg PO DAILY 03/07/23 release 24 hr (Myrbetriq) Previous Rx's ?Medication ?Instructions ?Recorded famotidine 40 mg tablet (Pepcid) 40 mg PO BEDTIME #90 tabs 06/05/22 budesonide-formoterol HFA 160 2 puff PO BID #30.6 grams 03/28/23 mcg-4.5 mcg/actuation aerosol inhaler albuterol sulfate 90 mcg/actuation 2 inh inhalation Q6H PRN shortness 05/21/23 aerosol inhaler of breath or wheezing 30 days #18 grams budesonide 160 mcg-glycopyr 9 2 inh inhalation BID 30 days #10.7 12/23/23 mcg-formot 4.8 mcg/actuation HFA grams inhaler (Breztri Aerosphere) tiotropium bromide 2.5 2 inh PO DAILY #12 grams 04/14/24 mcg/actuation mist for inhalation (Spiriva Respimat) oxycodone 5 mg tablet 5 mg PO TID PRN severe pain (scale 05/13/24 score 7-10) #10 tabs Allergies Allergy/AdvReac Type Severity Reaction Status Date / Time latex Allergy Severe Swelling Verified 05/13/24 11:40 levofloxacin [Levaquin] Allergy Severe Swelling Verified 05/13/24 11:40 Aspirin Allergy Severe Swelling Uncoded 05/13/24 11:40 Review of Systems Review of Systems: Yes all other systems are reviewed and are negative Constitutional: Constitutional: Reports as per HPI [facility] Past Medical History Medical History Carotid stenosis, asymptomatic GERD (gastroesophageal reflux disease) Colon cancer Pre-op chest exam Lung cancer Pulmonary nodules Dyspnea COPD (chronic obstructive pulmonary disease) Pulmonary nodule Social History Social History Patient Tobacco Use Status: Former Tobacco user Tobacco use type: Cigarette Years Smoked: 20+ Years Advance Directives: No Advance Directives Information Provided: Yes Do you have a plan to hurt others: No Plan Physical Exam ED Vital Signs: Vital Signs - 24 hr 05/13/24 11:38 05/13/24 15:13 Temperature 98.4 F 97.1 F Pulse Rate 103 H 77 Respiratory Rate 19 14 Blood Pressure 119/80 102/55 L Pulse Oximetry 96 94 Oxygen Delivery Method Room Air Room Air BMI result Body Mass Index 28.2 Const General: cooperative, comfortable and no acute distress Orientation/consciousness: patient oriented x3 Limitations: no limitations HENMT Head: Yes normal to inspection, Yes normocephalic and Yes atraumatic Ears: hearing grossly normal bilaterally General nose exam: Normal external nose present Face and sinus: Yes normal facial exam Mouth: Normal oral and palatal mucosa present, oropharynx normal and moist mucous membranes Throat: Yes posterior oropharynx normal Eyes General: appearance normal, both eyes and all related structures Eyelids: Yes eyelids normal Conjunctivae: conjunctivae normal Sclerae: sclerae normal Pupils: Equal, round and reactive pupils present EOM: EOMs intact bilaterally Neck Neck: Yes normal visual inspection, Yes full ROM and Yes no lymphadenopathy Lymphatic: no lymphadenopathy noted Chest Chest palpation & inspection: normal inspection of the chest Resp Effort & Inspection: normal respiratory effort and able to speak in complete sentences Auscultation: clear to auscultation bilaterally, no crackles, no rales, no rhonchi and no wheezes Cardio Rate: regular rate Rhythm: regular rhythm Heart sounds: S1 normal heart sound present and S2 normal heart sound present GI Other: Abdomen is soft, with tenderness palpation in the suprapubic region. No rebound or guarding. Inspection: Yes normal to inspection Skin General skin exam: no rashes or lesions noted Trauma: no lacerations or abrasions Wounds: no wounds Neuro General: patient oriented x3 and moves all extremities Cranial nerves: Yes Equal, round and reactive pupils present Extrem General: Yes normal to inspection Right upper extremity: normal to inspection Left upper extremity: normal to inspection Right lower extremity: normal to inspection Left lower extremity: normal to inspection Course Course Course Narrative: This is an RME done by RALPH Young: Additional HPI, ROS, PE not included below will be deferred to primary provider. 74 year old female with concerns of explosive diarrhea that started this morning x 2 days. She has also been experiencing hernia pain x weeks. Denies recent antibiotic usage. Appearance: Alert.? Oriented X3.? No acute cardiopulmonary distress distress.? Head: Normocephalic, atraumatic, no step-offs or deformities Neck: Normal inspection.? Neck supple.? CVS: Pulses normal.? Respiratory: No respiratory distress.? Abdomen: Soft and nontender.? Skin: ? Normal skin color. Extremities: 5/5 strength to bilateral upper and lower extremities Neuro: Oriented X 3.? No motor deficit.? No sensory deficit. Reevaluation(s) Reevaluation #1: CT scan still pending at this time, given signed out to my colleague, Willem Hannah PA-C pending CT scan results, and disposition. Time: 17:12 Reevaluation #2: Patient received in sign-out at change of shift pending CT imaging and disposition. The patient's CT scan shows no acute findings. I discussed at length with the patient and her daughter. The patient will use ibuprofen and Tylenol for pain, I will give her a short course of oxycodone for severe pain unrelieved by ibuprofen and Tylenol with the added affective some degree of constipation. The patient was unable to provide a urine sample or a stool sample. She will follow up with her PCP regarding these. I did encourage her to follow up with her GI doctor as well Time: 18:06 Medications Administered Discontinued Medications Generic Name Dose Route Start Last Admin Trade Name Jairo PRN Reason Stop Dose Admin Acetaminophen 975 mg 05/13/24 15:20 05/13/24 16:11 Acetaminophen 325 Mg Tablet PO 05/13/24 15:21 975 mg ONCE ONE Administration Sodium Chloride 1,000 mls @ 999 mls/hr 05/13/24 15:20 05/13/24 16:11 Ns IV 05/13/24 16:20 999 mls/hr .Q1H1M ONE Administration Iohexol 100 ml 05/13/24 16:22 05/13/24 16:23 Iohexol 350 Mg/Ml 100 Ml Infus..Btl IV 05/13/24 16:23 85 ml ONCE ONE Administration Medical Decision Making Medical Decision Making [facility] Narrative: This is a 74-year-old female, with a history of colon cancer with resection, COPD, GERD, who presents emergency department with complaints of abdominal pain for the last 2 days. On arrival, vital signs within normal limits. She is nontoxic appearing. She does have mild tenderness palpation in the lower abdomen. No rebound or guarding. Differential diagnoses include acute appendicitis, gastritis, gastroenteritis, diverticulitis. Plan: Labs, UA, CT scan Differential Diagnosis Differential Diagnoses: The differential diagnosis associated with the presentation includes See above Admission/Observation Consideration of admission/observation: Escalation of care including admission/observation considered Lab Data MDM Lab Attestation statement: I reviewed the patient's lab results. 05/13/24 11:56 05/13/24 11:56 Labs: Lab Results 05/13/24 Range/Units 11:56 WBC 8.7 (4.8-10.8) X10*3/uL RBC 5.03 (4.20-5.50) X10*6/uL Hgb 14.7 (12.0-16.0) g/dl Hct 43.7 (37.0-47.0) % MCV 86.9 (80.0-98.0) fL MCH 29.2 (27.0-33.0) pg MCHC 33.6 (31.0-35.0) g/dl RDW 12.4 (11.0-16.0) % Plt Count 241 (160-400) X10*3/uL MPV 9.5 (9.4-12.3) fL Immature Gran % (Auto) 0.3 (0.0-0.4) % Neut % (Auto) 81.1 H (45-73) % Lymph % (Auto) 9.0 L (20-40) % [place] % (Auto) 6.9 (2-11) % Eos % (Auto) 2.2 (0-4) % Baso % (Auto) 0.5 (0-2) % Lymph # (Auto) 0.8 L (1.2-4.9) X10*3/uL [place] # (Auto) 0.6 (0.1-1.2) X10*3/uL Eos # (Auto) 0.2 (0.0-0.4) X10*3/uL Baso # (Auto) 0.0 (0.0-0.2) X10*3/uL Abs Immat Gran (auto) 0.03 (0.00-0.03) X10*3/uL Absolute Neuts (auto) 7.0 (2.0-8.3) x10*3/uL Absolute Nucleated RBC 0.000 (0.0-0.012) X10*3/uL Nucleated RBC % (auto) 0.0 (0.0-0.2) /100WBC Sodium 141 (135-145) mmol/L Potassium 3.9 (3.3-5.1) mmol/L Chloride 108 (96-108) mmol/L Carbon Dioxide 23 (22-29) mmol/L Anion Gap 14 (12-20) BUN 19 H (9-16) mg/dL Creatinine 1.10 (0.5-1.4) mg/dL Estim Creat Clear Calc 44.3 Estimated GFR 49 Random Glucose 256 H (60-115) mg/dL Calcium 10.0 (8.4-10.2) mg/dL Magnesium 2.1 (1.6-2.6) mg/dL Total Bilirubin 1.3 H (0.0-1.0) mg/dL AST 17 (5-31) U/L ALT 21 (0-31) U/L Alkaline Phosphatase 66 (39-117) U/L Total Protein 7.0 (6.5-8.0) g/dL Albumin 4.0 (3.5-5.0) g/dL Lipase 18 (8-78) U/L Radiology Impression Discussion of test interpretation with radiology: I have reviewed the radiologist's reading. Radiologist Impression: CT/CT abdomen pelvis w IV con IMPRESSION: 1. No acute abnormality CT scan abdomen pelvis. 2. Status post partial right hemicolectomy. Diverticulosis sigmoid colon. No acute abnormality of bowel. 3. Moderate-sized hiatal hernia. Fleischner guidelines were followed. External Record Review External record reviewed: Inpatient record, Office record, Outpatient record, Prior outpatient labs, Prior outpatient radiology, Primary care record and Outside ED record Discharge Plan Discharge Clinical Impression: Abdominal pain, Diarrhea Patient Disposition: Home, Self-Care Instructions: Acute Diarrhea (ED) Additional Instructions: Your CT scan did not show any acute findings to explain your pain. Your symptoms may be related to a stomach virus Follow-up with your primary doctor as well as your GI doctor Return for new or worsening symptoms Use ibuprofen/Tylenol for pain Drink lots of fluids Use oxycodone for more severe breakthrough pain This may make you drowsy, do not drink alcohol or drive after taking it Prescriptions: New oxycodone 5 mg tablet 5 mg PO TID PRN (Reason: severe pain (scale score 7-10)) Qty: 10 0RF Rx Instructions: Partial Fill upon patient request. You may cut tablets in half No Action budesonide-formoterol 160-4.5 mcg/actuation HFA aerosol inhaler 2 puff PO BID Qty: 30.6 3RF albuterol sulfate 90 mcg/actuation HFA aerosol inhaler 2 inh inhalation Q6H PRN (Reason: shortness of breath or wheezing) 30 Days Qty: 18 12RF Spiriva Respimat 2.5 mcg/actuation mist 2 inh PO DAILY Qty: 12 3RF Trintellix 10 mg tablet 10 mg PO DAILY clopidogrel 75 mg tablet 75 mg PO DAILY lorazepam 0.5 mg tablet 0.5 mg PO TID PRN rosuvastatin 40 mg tablet 40 mg PO DAILY ezetimibe 10 mg tablet 10 mg PO DAILY losartan 50 mg tablet 50 mg PO DAILY Flucelvax Quad (PF) 60 mcg (15 mcg x 4)/0.5 mL syringe IM nitroglycerin 0.4 mg tablet, sublingual sublingual empagliflozin 25 mg tablet 25 mg PO DAILY omeprazole 20 mg capsule,delayed release(DR/EC) 20 mg PO DAILY nystatin [Nyamyc] 100,000 unit/gram powder topical BID Myrbetriq 25 mg tablet extended release 24 hr 25 mg PO DAILY famotidine [Pepcid] 40 mg tablet 40 mg PO BEDTIME Qty: 90 3RF Breztri Aerosphere 160-9-4.8 mcg/actuation HFA aerosol inhaler 2 inh inhalation BID 30 Days Qty: 10.7 0RF Print Language: Italian
[2024-05-13 12:00] LABS: MANUAL DIFF FLAG NO
[2024-05-13 12:06] LABS: Basophils Percent Auto 0.5 % (0-2); Eosinophils Absolute Auto 0.2 X10*3/uL (0.0-0.4); Eosinophils Percent Auto 2.2 % (0-4); Hematocrit 43.7 % (37.0-47.0); Hemoglobin 14.7 g/dl (12.0-16.0); Imm Gran Abs Auto 0.03 X10*3/uL (0.00-0.03); Imm Gran Pct Auto 0.3 % (0.0-0.4); Lymphocytes Absolute Auto 0.8 X10*3/uL (1.2-4.9); Mean Corpuscular HGB Conc 33.6 g/dl (31.0-35.0); Mean Corpuscular Hemoglobin 29.2 pg (27.0-33.0); Mean Corpuscular Volume 86.9 fL (80.0-98.0); Mean Platelet Volume 9.5 fL (9.4-12.3); Monocytes Absolute Auto 0.6 X10*3/uL (0.1-1.2); Monocytes Percent Auto 6.9 % (2-11); Neutrophils Percent Auto 81.1 % (45-73); Platelet Count 241 X10*3/uL (160-400); Red Blood Count 5.03 X10*6/uL (4.20-5.50); Red Cell Distribution Width 12.4 % (11.0-16.0); White Blood Count 8.7 X10*3/uL (4.8-10.8)
[2024-05-13 12:15] LABS: Alanine Aminotransferase 21 U/L (0-31); Alkaline Phosphatase 66 U/L (39-117); Anion Gap 14 (12-20); Aspartate Amino Transferase 17 U/L (5-31); Bilirubin Total 1.3 mg/dL (0.0-1.0); Blood Urea Nitrogen 19 mg/dL (9-16); Carbon Dioxide 23 mmol/L (22-29); Chloride 108 mmol/L (96-108); Creatinine Clr Calc Pharmacy 44.3; Estimated Glomerular Filt Rate 49; Glucose Random 256 mg/dL (60-115); Lipase 18 U/L (8-78); Magnesium 2.1 mg/dL (1.6-2.6); Potassium 3.9 mmol/L (3.3-5.1); Sodium 141 mmol/L (135-145)
[2024-05-13 15:13] VITALS: BP 102/55; PULSE 77; RESP 14; TEMP 36.2; O2SAT 94
[2024-05-13] MEDS: 0.9 % Sodium Chloride 1,000 ML 999 ML IV (16:11)
[2024-05-13] MEDS: Acetaminophen 325 MG TABLET 975 MG PO (16:11)
[2024-05-13] MEDS: iohexoL 350 MG/ML 100 ML INFUS..BTL IV (16:23)
[2024-05-13 18:24] VITALS: BP 136/68; PULSE 78; RESP 18; TEMP 36.6; O2SAT 98
== END 2024-05-13 18:24 | disposition home or self-care (01) ==
PROVIDERS: Physician Assistant; Emergency Provider Emergency Medicine Emergency Medical Services; PCP Internal Medicine
DX: R10.9 Unspecified abdominal pain (principal); R19.7 Diarrhea, unspecified
CPT/HCPCS: 36415; 74177; 80053; 83690; 83735; 85025; 99284; Q9967

== ENCOUNTER 2024-05-21 10:56 | Outpatient (AMB) | payer MEDICARE, SELFPAY ==
--- NOTE | 2024-05-21 10:57 | MHC.OFFVIS ---
Vital Signs 05/21/24 11:15 Height 5 ft 4 in Weight 164 lb BMI 28.1 BP 129/75 Blood Pressure Location Lt brachial Position Sitting Pulse 93 Intake Visit Reasons: hernia Intake Note: Patient is seen in office for ER follow up visit, following abdominal pain, poss hernia. 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 Accompanied by: Self / Same As Patient Allergies latex Allergy (Severe, Verified 05/21/24 11:03) Swelling levofloxacin [Levaquin] Allergy (Severe, Verified 05/21/24 11:03) Swelling Aspirin Allergy (Severe, Uncoded 05/21/24 11:03) Swelling Medication List - Last Reconciled 05/21/24 by Anthony Esteves MD albuterol sulfate 90 mcg/actuation 2 inhalations inhalation Q6H PRN 30 days budesonide-formoterol 160-4.5 mcg/actuation 2 puffs PO BID vhxjlyhcbe-neqkvplt-fobnfsxskf 160-9-4.8 mcg/actuation (Breztri Aerosphere) 2 inhalations inhalation BID 30 days clopidogrel 75 mg PO DAILY empagliflozin 25 mg PO DAILY ezetimibe 10 mg PO DAILY famotidine (Pepcid) 40 mg PO BEDTIME flu vac qs 2019(4 yr up)CD(PF) mL IM lorazepam 0.5 mg PO TID PRN losartan 50 mg PO DAILY mirabegron ER (Myrbetriq) 25 mg PO DAILY nitroglycerin mg sublingual nystatin (Nyamyc) topical BID omeprazole 20 mg PO DAILY oxycodone 5 mg PO TID PRN rosuvastatin 40 mg PO DAILY tiotropium bromide 2.5 mcg/actuation (Spiriva Respimat) 2 inhalations PO DAILY vortioxetine 10 mg PO DAILY HPI Comments Details: 74-year-old female patient presenting for evaluation of an incisional hernia. She reports undergoing colon surgery for cancer 3 years ago and soon after developing a lump in the midline abdomen. This was generally asymptomatic however recently she required evaluation in the emergency department. She was found to have a incarcerated incisional hernia which was able to be reduced in the emergency department. She now feels improved but continues to feel the hernia in his concerned about recurrence of this episode. She denies nausea, vomiting, fever or chills. CT abdomen and pelvis confirms an incisional hernia in the upper midline along with diastasis recti. [facility] Medical History Carotid stenosis, asymptomatic GERD (gastroesophageal reflux disease) Colon cancer Pre-op chest exam Lung cancer Pulmonary nodules Dyspnea COPD (chronic obstructive pulmonary disease) Pulmonary nodule Social History Patient Tobacco Use Status: Former Tobacco user Tobacco use type: Cigarette Years Smoked: 20+ Years Review of Systems Const All systems reviewed & are unremarkable except as noted in HPI and below Denies chills, Denies fever(s), Denies headache(s), Denies poor appetite and Denies weakness ENT Denies headache(s) Card Denies chest pain, Denies irregular heart rhythm, Denies palpitations and Denies dyspnea Resp Denies cough, Denies excessive phlegm production and Denies dyspnea GI Denies abdominal pain, Denies bloating, Denies change in bowel habits, Denies constipation, Denies heartburn, Denies diarrhea, Denies nausea and Denies vomiting Denies urinary frequency Musc Denies back pain, Denies muscle weakness and Denies numbness Skin/Breast Denies changing lesions and Denies unusual bruising Neuro Denies headache(s), Denies numbness, Denies paresthesias and Denies weakness Psych Denies anxiety and Denies depression Endo Denies palpitations Hammad/Lymph Denies lymphadenopathy Physical Exam Const General: cooperative and no acute distress Nutritional Appearance: well nourished Orientation/consciousness: patient oriented x3 Limitations: no limitations HEENT Head: Yes normocephalic and Yes atraumatic Ears: hearing grossly normal bilaterally Resp Effort & Inspection: normal respiratory effort, no audible wheezes, no cough and no respiratory distress Cardio Jugular venous distension: no JVD GI Other: Upper midline incision is clean intact. Examination in the standing position with Valsalva maneuvers reveals 2 adjacent hernias in the upper midline below the previous incision. The hernia measures approximately 4 cm in diameter. Hernia does seem to be reducible. Inspection: Yes normal to inspection Skin Other: Warm, dry, no rash Neuro General: patient oriented x3 Extrem General: Yes no clubbing, cyanosis or edema Assessment & Plan Assessment & Plan (1) Incisional hernia: Code(s): K43.2 - Incisional hernia without obstruction or gangrene Category: Medical Qualifiers: Obstruction and gangrene presence: without obstruction or gangrene Qualified Code(s): K43.2 - Incisional hernia without obstruction or gangrene Plan 74-year-old female patient presenting with an incisional hernia following colon surgery a proximally 3 years ago. On examination she does have a reducible incisional hernia x2 measuring approximately 4 cm in diameter. I recommended repair of the incisional hernia with mesh and after review of the procedure, risks and alternatives, she consents to the surgery. Coding Level of Care Code New Pt Level 4 (66027) Diagnoses Incisional hernia, without obstruction or gangrene K43.2 Obstruction and gangrene presence: without obstruction or gangrene
[2024-05-21 11:15] VITALS: BP 129/75; PULSE 93; BMI 28.1
== END 2024-05-21 11:51 | disposition home or self-care (01) ==
PROVIDERS: PCP Internal Medicine; Visit Provider Surgery
DX: K43.2 Incisional hernia without obstruction or gangrene (principal)
CPT/HCPCS: 99204

== ENCOUNTER → 2024-05-21 10:56 | Outpatient (BNVA) | payer BC, SELFPAY | PROVIDERS: PCP Internal Medicine; Visit Provider Surgery ==

== ENCOUNTER 2024-06-25 10:37 | Outpatient (AMB) | payer OTHER, BC, SELFPAY ==
[2024-06-25 10:54] VITALS: BP 128/74; PULSE 83; O2SAT 94; BMI 28.4
--- NOTE | 2024-06-25 10:54 | MHC.OFFVIS ---
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 Overall she is doing very well. She is staying active she denies any significant dyspnea on exertion she has been using the inhalers as prescribed. Her last CT scan of the chest to assess her pulmonary nodules was back in March 2019 to follow-up a new pulmonary nodule. The appeared to be stable. The patient has had waxing waning pulmonary nodules. At this point the patient should have another CT scan of the chest in March 2020. Otherwise patient is without any other complaints at this time. 03/25/2020 the patient is here for pulmonary follow-up visit. Overall she is doing well from a respiratory status. She does have some shortness of breath with activity, mild in severity. Does have cough intermittently. She does take respiratory medications without any significant issue. We did review her CT scan of the chest from 2019, 2018 and also 2018. She has had multiple pulmonary nodules and she has had a history of cancer. Most recent CT scan of the chest demonstrates she is a slight change in the consistency of the right upper lobe nodular density. It appears to be little more solid and slightly more elongated. Again this may be just away was caught or the resolution. Therefore, at this point we will repeat the CT scan in 6 months. 09/29/2020 the patient is here for pulmonary follow-up visit. Overall she does complaint of dyspnea on exertion. Moderate severity. Does not appear to be getting any better. She has gained some weight which may be contributing. We did look at her most recent CT scan of the chest that she had a [facility]. I personally reviewed the CT scan with the patient.. I do not see any concerning nodular densities. At this point we can go back to the once a year CT scans. December 02, 2020 the patient is here for pulmonary follow-up visit. Since we last spoke she was diagnosed with colon cancer and screening colonoscopy. She was relatively asymptomatic. She now went to [place] and now it will be undergoing surgery after they do a full evaluation. From a respiratory status she is doing okay. Does have some dyspnea on exertion [id number] severity. Does get better with rest. Her last CT scan of the chest was reassuring with stable pulmonary nodules without any evidence of any metastatic disease that we can see at this point to the lungs. The patient is medically optimized from a respiratory status and is doing well from a pulmonary standpoint and will be able to consent for surgery for both anesthesia and the surgical intervention that she needs to have in [place]. The patient understands the risks which include atelectasis, hypoxia, prolonged mechanical ventilation and pneumonia. The risks at this point her minimal for her and she is able to have surgery from a pulmonary standpoint. 06/06/2021 the patient is here for a pulmonary follow-up visit. Since we last spoke the patient did undergo surgery for an early stage colon cancer. She was able to get it fully resected. she did not require chemotherapy which is reassuring. She did have a repeat CT scan of the chest at [facility] [place]. no obvious concerns noted. However, need to compared to the CT scan from [facility] to be sure completely. For the last few weeks she has noticed increasing shortness of breath with exertion moderate severity. She actually felt well after surgery. She has been using her Symbicort but typically just once a day. She needs to maximize at this time to twice a day and I did recommend she start Spiriva in conjunction to optimize his respiratory medication therapy. 12/05/2021 the patient is here for pulmonary follow-up visit. Overall the patient has been well from a respiratory status. She was concerned because her CE[facility] laboratory came back elevated. Therefore she underwent a PET/ CT scan at [facility] [place]. They could not find any evidence of any cancer. she is now due for colonoscopy. From a pulmonary standpoint her CT scans have been stable. She is following closely with serial CT scans. She is complaining of chest congestion mucus buildup and raspiness of the voice. She does comment also that she has developed increased reflux symptoms. I do believe her reflux symptoms are aggravating her larynx and resulting in the raspiness and mucus buildup. 06/05/2022 the patient is here for a pulmonary follow-up visit. Overall she is doing well. She continues use her respiratory therapy. She does not see any significant improvement when she does use the inhalers I did advise again try to cut down a little bit in the he continues to do about the same. She does have dyspnea on exertion. She also complains of reflux disease. She does take omeprazole in the morning and also Pepcid at nighttime. He seems to be helping. She does have episodes where she loses the ability to breathe brief few seconds. This sound like laryngospasm. Explained to her that the triggers could be the cause including underlying laryngeal penetration for reflux and/or postnasal drip resulting living will spasms. She should be sleeping elevated and wanting the reflux diet. The patient will follow up in [place] for the abnormal CT will. I believe she has been undergo a CT scan of the chest available. However she will be following up with them at the end of the year. She will not sure that I get a copy of the CT scan of the chest will for week follow-up with pulmonary nodules. Once the patient is without any other complaints. 12/06/2022 the patient is here for a pulmonary follow-up visit. Overall she is doing well until several weeks ago when she started developing a worsening productive cough. Moderate in severity. Initially was productive with yellow sputum, but now is non productive. Denies fever or chills. She continues use her respiratory therapy. She does not see any significant improvement when she does use the inhalers. On exam, she does have some wheezing. I will prescribe a course of prednisone. 03/07/2023 the patient is here for a pulmonary follow-up visit. She complains of worsening shortness of breath with minimal activity. She has been struggling with her breathing. Moderate severity. She took a few days of the prednisone during the last visit because of the exacerbation but she stop the because her sugars were elevated. She continues on a respiratory medicine. Is only partially helpful. On exam she actually has relatively normal breath sounds. No significant rhonchi or wheezing noted. I do believe the patient has gained weight and she is more deconditioning. We did talk about getting pulmonary function studies and starting pulmonary rehabilitation. The patient will go ahead and proceed with this process. As far as the other alternative medications we can consider Daliresp as a good option to minimize the steroid use specially since she cannot take the prednisone because of the elevated blood sugars. Her last CT scan of the chest was back in August. Otherwise patient is doing well. Likely will need follow-up imaging studies the end of this year or next year. We will discuss that further during the next follow-up in the fall. 05/06/2023 the patient is here for a pulmonary follow-up visit. Overall the patient is doing well. She ended up having her pulmonary rehabilitation at the [facility] through a cancer survivorship program. This appears to be working much better. She has been feeling better less shortness of breath. She continues her respiratory therapy. We did review her pulmonary function studies demonstrating only a mild obstructive process. She does have moderate diffusion impairment but she has had multiple surgeries. Overall very reassuring PFTs. She is that a follow-up in [place] the next few months. She should have a CT scan of chest August 2024 in [place]. Otherwise she will continue with current respiratory therapy and will follow-up in 6 months time. If any issues arise the patient will call for further evaluation. 12/23/2023 the patient is here for a pulmonary follow-up visit. Overall the patient has been doing well from a respiratory status. She has been following closely with [facility]. She has had a history of lung cancer x2 and more recently colon cancer. She has been getting CT scans of the abdomen and chest every 6 months in [place]. The patient is concerned because now she is going to change insurance companies and uncovered enough are any more. She is going to need a local oncologist to continue monitoring closely her cancer history. She has been cancer free now for about 3 years. I will refer her to a local hemo tolerating oncology's specialist. In the meantime the patient continues use respiratory therapy with good effect. Although, the appeared to be very expensive specially the Spiri va. Will go ahead and switch her over to Breztri to simplify her regimen. No need for prednisone. She does not use a rescue inhaler often. 06/25/2024 the patient is here for a pulmonary follow-up visit. The patient overall has been doing okay. She does complaint of dyspnea on exertion. [id number] severity. Seems like her symptoms got worse when she started developing the abdominal discomfort. She went to the ER found to have a ventral hernia. She also has a hiatal hernia that causes her to have some GI symptoms including dyspepsia and epigastric discomfort. Still though she was evaluated by General surgery and felt that she needed surgery for the significant ventral hernia. She did have spirometry in the office because of the shortness of breath and she appears to have a mild obstruction consistent with mild COPD. In addition to that she has a significant amount of small airways disease. Therefore will go ahead and optimize her respiratory therapy by having her take the Symbicort twice a day 2 puffs and also start Spiriva. Hopefully by providing her maximum bronchodilation effect she is going to feel better. From a pulmonary standpoint the patient may be able to proceed with surgery. She does have moderate risk for perioperative pulmonary complications which includes bronchospasms, hypoxia, atelectasis, pneumonia. At this point she is medically optimized from pulmonary standpoint may be able to proceed with anesthesia and surgery. The patient will follow-up in 3 months will reassess. [facility] Medical History (Updated 06/25/24 @ 09:16 by Melisa Vaughn RN) History of placement of stent in LAD coronary artery Osteoporosis Hyperlipidemia Depression CAD (coronary artery disease) Sleep apnea On anticoagulant therapy TIA (transient ischemic attack) Myocardial infarction Obesity Diabetes Dyslipidemia History of colon cancer HTN (hypertension) Carotid stenosis, asymptomatic GERD (gastroesophageal reflux disease) Colon cancer Pre-op chest exam Lung cancer Pulmonary nodules Dyspnea COPD (chronic obstructive pulmonary disease) Pulmonary nodule Surgical History (Updated 06/25/24 @ 09:16 by Melisa Vaughn RN) Hx of cardiac catheterization History of lobectomy of lung Social History Patient Tobacco Use Status: Former Tobacco user Tobacco use type: Cigarette Years Smoked: 20+ Years Review of Systems Const Denies night sweats ENT Denies change in voice, Denies lip swelling, Denies mouth pain, Reports nasal congestion, Reports nasal discharge and Denies tongue swelling Card Denies chest pain, Denies dyspnea and Reports dyspnea on exertion Resp Reports cough, Denies dyspnea and Reports dyspnea on exertion GI Reports as per HPI, Reports abdominal pain and Reports dyspepsia Musc Reports no additional complaints Neuro Denies Neuro-related abnormal movements Psych Denies no additional complaints Hammad/Lymph Denies easy bleeding and Denies lymphadenopathy Aller/Immun Denies lip swelling and Denies tongue swelling Physical Exam Vital Signs: Last Vital Signs Pulse 83 06/25/24 10:54 BP 128/74 06/25/24 10:54 Pulse Ox 94 06/25/24 10:54 Oxygen Delivery Method Room Air 06/25/24 10:54 BMI result Body Mass Index 28.4 Const General: alert HEENT General nose exam: Abnormal external nose present and Nasal discharge present Eyes Pupils: Equal, round and reactive pupils present Neck Neck: Yes normal visual inspection, Yes full ROM and Yes no lymphadenopathy Chest Chest palpation & inspection: normal inspection of the chest Resp Effort & Inspection: normal respiratory effort Auscultation: no wheezes and diminished lung sounds Cardio Rate: regular rate Rhythm: regular rhythm Heart sounds: S1 normal heart sound present and S2 normal heart sound present GI Palpation (GI): Soft to palpation and nontender Auscultation: normal bowel sounds General: Yes no CVA tenderness Back/Spine/Pelvis Back: no CVA tenderness Skin General skin exam: rashes and/or lesions noted Neuro Cranial nerves: Yes Equal, round and reactive pupils present Office Procedures Spirometry Testing Spirometry Comments: mild obstruction, significant small airways disease 08222- Spirometry Assessment & Plan Assessment & Plan (1) Pre-op chest exam: Code(s): Z01.811 - Encounter for preprocedural respiratory examination Category: Medical (2) COPD (chronic obstructive pulmonary disease): Code(s): J44.9 - Chronic obstructive pulmonary disease, unspecified Category: Medical Qualifiers: COPD type: COPD with acute exacerbation Qualified Code(s): J44.1 - Chronic obstructive pulmonary disease with (acute) exacerbation (3) Pulmonary nodules: Code(s): R91.8 - Other nonspecific abnormal finding of lung field Category: Medical (4) Dyspnea: Comment: Likely multifactorial. Does have ongoing COPD in addition to multiple lung resections. Code(s): R06.00 - Dyspnea, unspecified Category: Medical Qualifiers: Dyspnea type: dyspnea on exertion Qualified Code(s): R06.00 - Dyspnea, unspecified (5) Pulmonary nodule: Code(s): R91.1 - Solitary pulmonary nodule Category: Medical (6) GERD (gastroesophageal reflux disease): Code(s): K21.9 - Gastro-esophageal reflux disease without esophagitis Category: Medical Qualifiers: Esophagitis presence: without esophagitis Qualified Code(s): K21.9 - Gastro-esophageal reflux disease without esophagitis Plan Proceed with anesthesia and abdominal surgery at this time Continue Symbicort 2 puff BID continue Spiriva 2 inhations daily reflux diet Continue PPI cont Pepcid at night F/U 6 months Coding Level of Care Code Est Pt Level 4 (22425) Diagnoses Pre-op chest exam Z01.811 Chronic obstructive pulmonary disease with acute exacerbation J44.1 COPD type: COPD with acute exacerbation Pulmonary nodules R91.8 Dyspnea on exertion R06.00 Dyspnea type: dyspnea on exertion Pulmonary nodule R91.1 Gastroesophageal reflux disease without esophagitis K21.9 Esophagitis presence: without esophagitis CPT Codes Spirometry - CPT: 24461- Spirometry ([id number]) Time Spent (min) 17
== END 2024-06-25 11:46 | disposition home or self-care (01) ==
PROVIDERS: PCP Internal Medicine; Visit Provider Hospitalist
DX: Z01.811 Encounter for preprocedural respiratory examination (principal); J44.1 Chronic obstructive pulmonary disease with (acute) exacerbation; R91.8 Other nonspecific abnormal finding of lung field; R06.00 Dyspnea, unspecified; R91.1 Solitary pulmonary nodule; K21.9 Gastro-esophageal reflux disease without esophagitis
CPT/HCPCS: 94010; 99214

== ENCOUNTER → 2024-06-25 10:37 | Outpatient (BNVA) | payer MEDICARE, OTHER, SELFPAY | PROVIDERS: PCP Internal Medicine; Visit Provider Hospitalist | DX: Z01.811 Encounter for preprocedural respiratory examination (principal); J44.1 Chronic obstructive pulmonary disease with (acute) exacerbation; R91.8 Other nonspecific abnormal finding of lung field; R06.00 Dyspnea, unspecified; K21.9 Gastro-esophageal reflux disease without esophagitis | CPT/HCPCS: 94010; 99212 ==

== ENCOUNTER 2024-07-06 07:01 | Day surgery (SDC) | payer MEDICARE, SELFPAY ==
[2024-06-26 13:59] VITALS: BMI 28.3
--- NOTE | 2024-06-30 13:45 | P.CONAN_ITS ---
HPI - Anesthesia Eval Consult details Narrative: 74yo F for Hernia Incisional Reducible X 2 with mesh, 07/06/24 Follows [facility]. 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 Optimized for surgery per 06/2024 office visit note Lung CA s/p L lobectomy 2004, R wedge resection 2009 Anesthesia Pre-Procedure Meds Is the patient on any of the following meds?: GLP1/DPP4 and SGLT2 Inhib PMFSH Active Problems Active Problems: All Active Problems Incisional hernia (Acute) Lung cancer (Acute) Colon cancer (Acute) Carotid stenosis, asymptomatic (Acute) GERD (gastroesophageal reflux disease) (Acute) Pre-op chest exam (Acute) Pulmonary nodules (Acute) Dyspnea (Acute) COPD (chronic obstructive pulmonary disease) (Acute) Pulmonary nodule (Acute) Past Medical History Medical History (Updated 07/07/24 @ 11:01 by Tova Garza PA-C) History of transfusion of packed red blood cells Migraine History of placement of stent in LAD coronary artery Osteoporosis Hyperlipidemia Depression CAD (coronary artery disease) Sleep apnea On anticoagulant therapy TIA (transient ischemic attack) Myocardial infarction Obesity Diabetes Dyslipidemia History of colon cancer HTN (hypertension) Carotid stenosis, asymptomatic GERD (gastroesophageal reflux disease) Colon cancer Pre-op chest exam Lung cancer Pulmonary nodules Dyspnea COPD (chronic obstructive pulmonary disease) Pulmonary nodule Surgical History Surgical History Hx of tonsillectomy Hx of tubal ligation History of dental surgery Hx of cardiac catheterization History of lobectomy of lung Social History Social History Household Members: None Housing: House Are you a primary tire care manager to a significant other at home: No Do you presently have visiting nurse or other home services: No Patient Tobacco Use Status: Former Tobacco user Tobacco use type: Cigarette Years Smoked: 20+ Years Second Hand Smoke Exposure: No service: No Meds Allergies Allergy/AdvReac Type Severity Reaction Status Date / Time gabapentin [From Neurontin] Allergy Severe Itching Verified 07/06/24 07:08 latex Allergy Severe Swelling Verified 06/25/24 10:56 levofloxacin [Levaquin] Allergy Severe Swelling Verified 06/25/24 10:56 Aspirin Allergy Severe Swelling Uncoded 06/25/24 10:56 Home Medications ?Medication ?Instructions ?Recorded ?Confirmed ?Last Taken ?Type clopidogrel 75 mg tablet 75 mg PO QPM 09/29/20 06/26/24 06/30/24 History ezetimibe 10 mg tablet 10 mg PO DAILY 09/29/20 06/26/24 07/06/24 History lorazepam 0.5 mg tablet 0.5 mg PO BID PRN Anxiety 09/29/20 06/26/24 Unknown History losartan 50 mg tablet 25 mg PO DAILY 09/29/20 07/06/24 Unknown History nitroglycerin 0.4 mg sublingual 0.4 mg sublingual DIRECTED PRN 09/29/20 06/26/24 Unknown History tablet Chest Pain rosuvastatin 40 mg tablet 40 mg PO BEDTIME 09/29/20 06/26/24 Unknown History vortioxetine 10 mg tablet 10 mg PO BEDTIME 09/29/20 06/26/24 Unknown History empagliflozin 25 mg tablet 25 mg PO DAILY 12/02/20 06/26/24 07/02/24 History nystatin 100,000 unit/gram topical 1 appl topical BID 12/06/22 06/26/24 Unknown History powder (N[facility]amyc) gabapentin 300 mg capsule 300 mg PO DAILY PRN Pain 06/25/24 06/26/24 Unknown History semaglutide 7 mg tablet (Rybelsus) 7 mg PO DAILY 06/25/24 06/26/24 07/02/24 History budesonide-formoterol HFA 160 2 puff inhalation BID 06/26/24 06/26/24 07/06/24 History mcg-4.5 mcg/actuation aerosol inhaler calcium carbonate 600 mg-vitamin 1 tab PO DAILY 06/26/24 06/26/24 Unknown History D3 5 mcg (200 unit) tablet cetirizine 10 mg tablet (Zyrtec) 10 mg PO BID PRN Allergy Symptoms 06/26/24 06/26/24 Unknown History cholecalciferol (vitamin D3) 50 50 mcg PO DAILY 06/26/24 06/26/24 Unknown History mcg (2,000 unit) capsule (Vitamin D3) famotidine 40 mg tablet (Pepcid) 40 mg PO BEDTIME PRN Acid Reflux 06/26/24 06/26/2424 History loperamide 2 mg tablet (Imodium 2 mg PO BID 06/26/24 06/26/24 Unknown History A-D) multivitamin 1 tab PO DAILY 06/26/24 06/26/24 Unknown History tiotropium bromide 2.5 2 inh PO BID 06/26/24 06/26/24 07/06/24 History mcg/actuation mist for inhalation (Spiriva Respimat) Exam Height,Weight and Vital Signs: Height 5 ft 4 in Weight 74.843 kg Pertinent Lab Results Pertinent Lab Results: Laboratory Tests 05/13/24 11:56 WBC 8.7 Hgb 14.7 Hct 43.7 Plt Count 241 Sodium 141 Potassium 3.9 Chloride 108 Carbon Dioxide 23 BUN 19 H Creatinine 1.10 Narrative Narrative: EKG 06/2024 SR @ 81 Nml axis and nml voltage Deep septal Q waves Nuc Stress 12/2023 Multiple fixed defects which fits her ICM, no reversible defects PFT 2022 SPIROMETRY: The FEV1 to FVC of 62% with an FEV1 of 1.95 L which is 93% predicted and FVC of 3.14 L which is 113% predicted. No significant response to bronchodilators noted. The ISC15-13 decreased down to 42% predicted. Maximum voluntary ventilation 81% predicted. LUNG VOLUMES: Total lung capacity 107% predicted with an expiratory reserve volume of 65% predicted. DIFFUSION CAPACITY: DLCO of 61% predicted. COMPARISONS: None. INTERPRETATION: There is an obstructive ventilatory defect consistent with mild COPD. There is also evidence of small airway disease. No significant response to bronchodilators noted. Lung volumes are normal and the patient does have mild diffusion impairment secondary to her COPD and also had lung surgeries. Clinical correlation warranted. Assessment and Plan Assessment Anesthesia Assessment: Chart Reviewed
[2024-07-06] VITALS (21 sets, daily range): BP systolic 106–174; BP diastolic 45–75; PULSE 65–86; RESP 11–18; TEMP 36.1–36.6; O2SAT 92–97; BMI 29.2; BMI 30.1
[2024-07-06 07:33] LABS: Glucose, Whole Blood 214 mg/dL (60-115)
[2024-07-06] MEDS: Lactated Ringers 1,000 ML 100 ML IVCONT (07:37)
--- NOTE | 2024-07-06 08:31 | MHC.SHP ---
Pre-Procedural Eval Section A - 24 Hr Update-Section A only Date of Service: 07/06/24 The patient is an INPATIENT: No Changes since office visit: Yes Patient answered all questions; No Cold of Flu in the past 2 weeks, No New Medical Problems and No Changes in Medication The patient has been examined within 24 hours of the surgical procedure. The History & Physical has been completed within 30 days and I have reviewed it.: No Section B - Complete if H&P > 30 days Chief Complaint: Incisional hernia without obstruction or gangrene Details of Present Illness: Patient reports no new symptoms since last evaluation Relevant Family History (Specify if Yes): No Relevant Social History: Tobacco Use (Former tobacco user) Present Medications: see Short Stay Collaborative assessment Medical History: Significant History (Colon cancer, lung cancer, GERD, carotid stenosis, COPD) Allergies: Allergies Allergy/AdvReac Type Severity Reaction Status Date / Time gabapentin [From Neurontin] Allergy Severe Itching Verified 07/06/24 07:08 latex Allergy Severe Swelling Verified 06/25/24 10:56 levofloxacin [Levaquin] Allergy Severe Swelling Verified 06/25/24 10:56 Aspirin Allergy Severe Swelling Uncoded 06/25/24 10:56 Review of Systems Sugical H&P ROS: Negative: Constitution, Cardiovascular, Respiratory, Gastrointestinal and Integumentary Exam Surgical H&P Exam: Normal: Heart and Normal: Lungs and Significant Findings: Abdomen (Incisional hernia upper abdomen X 2) Plan Diagnosis/Plan: Unchanged I have reviewed the history and physical and performed a pertinent physical examination on my patient. No changes have occurred unless specified. Time Spent With Patient Time: Total time managing care of this patient today ____ minutes.
--- NOTE | 2024-07-06 09:56 | HO.ANESPROP2 ---
[facility] Active Problems Active Problems: All Active Problems Incisional hernia (Acute) Lung cancer (Acute) Colon cancer (Acute) Carotid stenosis, asymptomatic (Acute) GERD (gastroesophageal reflux disease) (Acute) Pre-op chest exam (Acute) Pulmonary nodules (Acute) Dyspnea (Acute) COPD (chronic obstructive pulmonary disease) (Acute) Pulmonary nodule (Acute) Past Medical History Medical History History of transfusion of packed red blood cells Migraine History of placement of stent in LAD coronary artery Osteoporosis Hyperlipidemia Depression CAD (coronary artery disease) Sleep apnea On anticoagulant therapy TIA (transient ischemic attack) Myocardial infarction Obesity Diabetes Dyslipidemia History of colon cancer HTN (hypertension) Carotid stenosis, asymptomatic GERD (gastroesophageal reflux disease) Colon cancer Pre-op chest exam Lung cancer Pulmonary nodules Dyspnea COPD (chronic obstructive pulmonary disease) Pulmonary nodule Functional capacity: independent ambulation Patient : No Family History Family history of problems with anesthesia: No Surgical History Surgical History Hx of tonsillectomy Hx of tubal ligation History of dental surgery Hx of cardiac catheterization History of lobectomy of lung History of Problems with Anesthesia: No Social History Social History Are you a primary care nurse rn to a significant other at home: No Do you presently have visiting nurse or other home services: No Patient Tobacco Use Status: Former Tobacco user Tobacco use type: Cigarette Years Smoked: 20+ Years Use of substances other than those prescribed or required for medical reasons: No Have you been hit, kicked, punched, or otherwise hurt by someone within the past year? If so, by whom?: No Are you DNR?: No Advance Directives: No Advance Directives Information Provided: Yes Advance Directives on File: No Recently lost weight without trying: No Eating poorly because of decreased appetite: No Nutrition Risks: No Nutritional Risk Patient : No : No Poor oral hygiene: Yes (crowns upper and lower) Meds Allergies Allergy/AdvReac Type Severity Reaction Status Date / Time gabapentin [From Neurontin] Allergy Severe Itching Verified 07/06/24 07:08 latex Allergy Severe Swelling Verified 06/25/24 10:56 levofloxacin [Levaquin] Allergy Severe Swelling Verified 06/25/24 10:56 Aspirin Allergy Severe Swelling Uncoded 06/25/24 10:56 Active Medications: Current Medications Albuterol Sulfate (Albuterol Sulfate (0.083%) 2.5 Mg/3 Ml Vial.Neb) 2.5 mg INHALE ONCE PRN PRN Reason: Shortness of Breath/Wheezing Lactated Ringer's (Lr) 1,000 mls @ 100 mls/hr IVCONT .Q10H AGUSTO Last Admin: 07/06/24 07:37 Dose: 100 mls/hr Home Medications ?Medication ?Instructions ?Recorded ?Confirmed ?Last Taken ?Type clopidogrel 75 mg tablet 75 mg PO QPM 09/29/20 06/26/24 06/30/24 History ezetimibe 10 mg tablet 10 mg PO DAILY 09/29/20 06/26/24 07/06/24 History lorazepam 0.5 mg tablet 0.5 mg PO BID PRN Anxiety 09/29/20 06/26/24 Unknown History losartan 50 mg tablet 50 mg PO DAILY 09/29/20 06/26/24 Unknown History nitroglycerin 0.4 mg sublingual 0.4 mg sublingual DIRECTED PRN 09/29/20 06/26/24 Unknown History tablet Chest Pain rosuvastatin 40 mg tablet 40 mg PO BEDTIME 09/29/20 06/26/24 Unknown History vortioxetine 10 mg tablet 10 mg PO BEDTIME 09/29/20 06/26/24 Unknown History empagliflozin 25 mg tablet 25 mg PO DAILY 12/02/20 06/26/24 07/02/24 History nystatin 100,000 unit/gram topical 1 appl topical BID 12/06/22 06/26/24 Unknown History powder ([facility]) gabapentin 300 mg capsule 300 mg PO DAILY PRN Pain 06/25/24 06/26/24 Unknown History semaglutide 7 mg tablet (Rybelsus) 7 mg PO DAILY 06/25/24 06/26/24 07/02/24 History budesonide-formoterol HFA 160 2 puff inhalation BID 06/26/24 06/26/24 07/06/24 History mcg-4.5 mcg/actuation aerosol inhaler calcium carbonate 600 mg-vitamin 1 tab PO DAILY 06/26/24 06/26/24 Unknown History D3 5 mcg (200 unit) tablet cetirizine 10 mg tablet (Zyrtec) 10 mg PO BID PRN Allergy Symptoms 06/26/24 06/26/24 Unknown History cholecalciferol (vitamin D3) 50 50 mcg PO DAILY 06/26/24 06/26/24 Unknown History mcg (2,000 unit) capsule (Vitamin D3) famotidine 40 mg tablet (Pepcid) 40 mg PO BEDTIME PRN Acid Reflux 06/26/24 06/26/24 07/06/24 History loperamide 2 mg tablet (Imodium 2 mg PO BID 06/26/24 06/26/24 Unknown History A-D) multivitamin 1 tab PO DAILY 06/26/24 06/26/24 Unknown History tiotropium bromide 2.5 2 inh PO BID 06/26/24 06/26/24 07/06/24 History mcg/actuation mist for inhalation (Spiriva Respimat) Exam Height,Weight and Vital Signs: Height 5 ft 4 in Weight 77.281 kg Last Vital Signs Temp 97.9 F 07/06/24 07:24 Pulse 66 07/06/24 07:24 Resp 16 07/06/24 07:24 BP 108/59 L 07/06/24 07:24 Pulse Ox 95 07/06/24 07:24 O2 Del Method Room Air 07/06/24 07:24 Pertinent Lab Results Pertinent Lab Results: Laboratory Tests 07/06/24 07:30 POC Glucose 214 H Airway Mallampati Class: I TM Dist: >3cm Neck ROM: Full Heart: RRR Lungs: CTA Assessment and Plan Assessment Anesthesia Assessment: Anesthesia Plan Discussed and Chart Reviewed Final Anesthetic Review Family History of Problems with Anesthesia: No History of Problems with Anesthesia: No NPO: Yes ASA Class: III Final Preanesthetic Review: Meds/Allgs Chart Reviewed, Consent Obtained/Reviewed and Anes Risks/Benef Reviewed Patient Risk: Intermediate Procedure Risk: Low Anesthetic Plan Anesthetic Plan: GA Disposition: Standard PACU
--- NOTE | 2024-07-06 10:18 | P.OP_ITS ---
Operative Note Operative Note Date of Service: 07/06/24 Narrative: Preoperative diagnosis: Incisional hernia x2 Postoperative diagnosis: Incisional hernia x4 Procedure: Repair of incisional hernia x4 with mesh Surgeon: Anthony Esteves MD Cylinder Head Assembler: Ceci Green PA-C Anesthesia: General LMA Indications for procedure: 74-year-old female patient with a prior history of colon cancer status post colon resection with an upper midline incision now presenting with 2 palpable lumps in the midline incision which increase in size with Valsalva maneuvers but reduce with light pressure. Patient was found to have a palpable incisional hernia x2 Operative findings: Patient was explored through the midline incision and a total of 4 fascial defects including the 2 previously noted hernias and 2 smaller hernias all within the midline incision. This was repaired using an 8 cm round Ventralex mesh. Specimen: None Estimated blood loss: 5 mL Complications: None Procedure details: Patient was brought to the OR and placed in a supine position. After administering general anesthesia the patient's abdomen was prepped with ChloraPrep and draped in a sterile fashion. A surgical time-out was called the consent confirmed. Patient received preoperative antibiotics and Venodyne boots were in place. Local anesthesia was infiltrated in the midline incision. A midline incision was then made with a scalpel and carried out through subcutaneous tissue up to the hernia sac. Electrocautery was then used to dissect around the hernia sac down to the fascial defect. As noted above a total of 4 fascial defects were identified within the midline fascia. These were all combined into 1 opening measuring approximately 5 cm in diameter. The contents were reduced into the preperitoneal space. A preperitoneal space was then widened using electrocautery and sharp dissection. Hemostasis was assured at all times using electrocautery. An 8 cm round Ventralex mesh was then obtained. This was secured in 4 quadrants with 0 Tycron sutures using a parachute type method. Once all [address] the mesh was placed into the preperitoneal space and secured at the 4 quadrants. Fascia was then closed over the mesh using [id number] 0 Tycron sutures including the mesh in the repair. When the fascia was completely closed the wounds were irrigated with saline solution and suctioned dry. Additional local was infiltrated into the fascia at this time. Subcutaneous tissue and dermis were then reapproximated using interrupted 3-0 Polysorb sutures. Skin was then closed using a running subcuticular 4-0 Polysorb suture. Sterile dressings consisting of Steri-Strips, 4 x 4 gauze and Tegaderm were then applied. The patient tolerated the procedure well. Sponge, instrument, and needle counts reported as correct. The patient was transferred to PACU in stable condition.
[2024-07-06] MEDS: fentaNYL citrate/PF 100 MCG/2 ML VIAL 25 MCG IVPUSH ×4 (10:37→10:52)
[2024-07-06 10:58] LABS: Glucose, Whole Blood 260 mg/dL (60-115)
[2024-07-06] MEDS: HYDROmorphone HCl 0.5 MG/0.5 ML SYRINGE 0.25 MG IVPUSH ×4 (10:58→11:20)
[2024-07-06] MEDS: Insulin Lispro 100 UNIT/ML 3 ML VIAL SUBCUT (12:27)
[2024-07-06] MEDS: Acetaminophen 1,000 MG/100 ML PIGGYBACK 400 MG IV (12:30)
[2024-07-06] MEDS: ondansetron HCL 4 MG/2 ML VIAL IVPUSH (12:40)
[2024-07-06] MEDS: Dextrose 5 % and Lactated Ring 1,000 ML 50 ML IVCONT (13:21)
--- NOTE | 2024-07-06 13:21 | PHA.MEDREC ---
Pharmacy Consult ? Medication Reconciliation Pharmacy has reviewed the medication reconciliation. Only discreptancy is patient has no pharmacy claims for losartan 50 mg, all claims are for 25 mg daily. Saw that RN confirmed the 50 mg losartan from admission back in 2020. Changed to 25 mg.
[2024-07-06] MEDS: HYDROmorphone HCl 0.5 MG/0.5 ML SYRINGE IVPUSH ×3 (15:04→23:42)
--- NOTE | 2024-07-06 17:27 | HO.POSTANES ---
Post Anesthesia Evaluation Post Anesthesia Evaluation Date of Service: 07/06/24 Vital Signs: Vital Signs Temp Pulse Resp BP Pulse Ox O2 Del Method O2 Flow Rate 07/06/24 15:28 96.9 F 72 12 106/56 L 94 Room Air 07/06/24 13:05 97.0 F 86 12 174/75 H 92 Nasal Cannula 2 07/06/24 12:27 97.4 F 74 16 119/62 95 Nasal Cannula 2 07/06/24 12:12 77 13 125/62 93 Nasal Cannula 2 07/06/24 11:57 81 16 117/64 94 Nasal Cannula with ETCO2 2 07/06/24 11:42 83 17 122/59 L 93 Nasal Cannula 2 07/06/24 11:25 83 12 130/57 L 94 Nasal Cannula 2 07/06/24 11:21 85 15 116/63 96 Nasal Cannula 2 07/06/24 11:16 85 18 122/72 96 Nasal Cannula 2 07/06/24 11:09 80 18 123/75 96 Nasal Cannula 2 07/06/24 11:02 75 14 124/56 L 96 Nasal Cannula 2 07/06/24 10:57 74 11 L 124/56 L 96 Nasal Cannula 07/06/24 10:51 72 12 109/45 L 96 Nasal Cannula 2 07/06/24 10:47 65 12 131/56 L 96 Nasal Cannula 2 07/06/24 10:36 72 12 118/57 L 97 Nasal Cannula 2 07/06/24 10:31 78 15 122/53 L 97 Nasal Cannula 2 07/06/24 10:26 79 15 121/52 L 97 Nasal Cannula 2 07/06/24 10:21 97.4 F 79 16 141/64 H 95 Nasal Cannula 2 07/06/24 07:24 97.9 F 66 16 108/59 L 95 Room Air
[2024-07-06] MEDS: Clopidogrel Bisulfate 75 MG TABLET PO (23:24)
[2024-07-06] MEDS: Vortioxetine Hydrobromide 10 MG TABLET PO (23:25)
[2024-07-06] MEDS: LORazepam 0.5 MG TABLET PO (23:42)
[2024-07-06] MEDS: Melatonin 3 MG TABLET 6 MG PO (23:42)
[2024-07-07 04:00] VITALS: BP 119/58; PULSE 65; RESP 17; TEMP 36.7; O2SAT 94
[2024-07-07] MEDS: HYDROmorphone HCl 0.5 MG/0.5 ML SYRINGE IVPUSH ×3 (06:37→16:54)
[2024-07-07 07:49] LABS: Glucose, Whole Blood 182 mg/dL (60-115)
[2024-07-07 07:52] VITALS: BP 114/56; PULSE 67; RESP 14; TEMP 36.8; O2SAT 93
--- NOTE | 2024-07-07 08:07 | PM.PNGS ---
Subjective Subjective Date of Service: 07/07/24 Interval history: Patient complains of incisional pain especially with change in position. Report 8 pain this morning. Has been receiving Dilaudid and oxycodone without significant relief. She denies nausea or vomiting. Physical Exam Vital Signs: Vital Signs: Last Vital Signs Temp 98.2 F 07/07/24 07:52 Pulse 67 07/07/24 07:52 Resp 14 07/07/24 07:52 BP 114/56 L 07/07/24 07:52 Pulse Ox 93 07/07/24 07:52 O2 Del Method Room Air 07/07/24 07:52 O2 Flow Rate 2 07/06/24 13:05 BMI result Body Mass Index 30.1 Const: General: no acute distress Nutritional Appearance: well nourished Orientation/consciousness: patient oriented x3 Resp: Effort & Inspection: normal respiratory effort, no audible wheezes, no cough and no respiratory distress GI: Other: Yaneth incisional tenderness. Dressings clean and dry, intact. Abdominal binder in place. Skin: Other: Warm, dry, no rash Neuro: General: patient oriented x3 Extrem: Other: No peripheral edema Objective Data Active Medications Albuterol Sulfate (Albuterol Sulfate 90 Mcg 8 Gm Inhaler) 2 puff INHALE Q6H PRN PRN Reason: shortness of breath or wheezing Calcium Carbonate (Calcium Carbonate 750 Mg Tab.Chew) 750 mg PO Q4H PRN PRN Reason: Heartburn Calcium Carbonate/Cholecalciferol (Calcium + Vitamin D 250 Mg Tablet) 250 mg PO DAILY [facility] Clopidogrel Bisulfate (Clopidogrel Bisulfate 75 Mg Tablet) 75 mg PO BEDTIME [facility] Last Admin: 07/06/24 23:24 Dose: 75 mg Documented By: TROY Ezetimibe (Ezetimibe 10 Mg Tablet) 10 mg PO DAILY [facility] Empagliflozin (Empagliflozin 25 Mg Tablet) 25 mg PO DAILY [facility] Famotidine (Famotidine 20 Mg Tablet) 40 mg PO BEDTIME PRN PRN Reason: Acid Reflux Fluticasone/Vilanterol (Fluticasone/Vilanterol 200/25 Blst.W.Dev) 1 puff INHALE DAILY [facility] Hydromorphone HCl (Hydromorphone Hcl 0.5 Mg/0.5 Ml Syringe) 0.5 mg IVPUSH Q3H PRN; Protocol PRN Reason: Pain, Severe (Pain Scale 7-10) Last Admin: 07/07/24 06:37 Dose: 0.5 mg Documented By: TROY Acetaminophen (Ofirmev) 1,000 mg in 100 mls @ 400 mls/hr IV Q6H [facility] Loperamide HCl (Loperamide Hcl 2 Mg Capsule) 2 mg PO BID AGUSTO Last Admin: 07/06/24 23:41 Dose: Not Given Documented By: TROY Non-Admin Reason: Patient Refused Lorazepam (Lorazepam 0.5 Mg Tablet) 0.5 mg PO BID PRN PRN Reason: Anxiety Last Admin: 07/06/24 23:42 Dose: 0.5 mg Documented By: TROY Losartan Potassium (Losartan Potassium 25 Mg Tablet) 25 mg PO DAILY [facility]; Protocol Magnesium Hydroxide (Milk Of Magnesia 30 Ml Oral.Susp) 30 ml PO DAILY PRN PRN Reason: Constipation Melatonin (Melatonin 3 Mg Tablet) 6 mg PO BEDTIME PRN PRN Reason: Insomnia Last Admin: 07/06/24 23:42 Dose: 6 mg Documented By: TROY Naloxone HCl (Naloxone Hcl 0.4 Mg/Ml Vial) 0.04 mg IVPUSH Q5M PRN PRN Reason: Excessive sedation or RR < 8 Naloxone HCl (Naloxone Hcl 0.4 Mg/Ml Vial) 0.04 mg IVPUSH Q5M PRN PRN Reason: Excessive sedation or RR < 8 Naloxone HCl (Naloxone Hcl 0.4 Mg/Ml Vial) 0.04 mg IVPUSH Q5M PRN PRN Reason: Excessive sedation or RR < 8 Naloxone HCl (Naloxone Hcl 0.4 Mg/Ml Vial) 0.04 mg IVPUSH Q5M PRN PRN Reason: Excessive sedation or RR < 8 Nitroglycerin (Nitroglycerin 0.4 Mg Tab.Subl) 0.4 mg SUBLINGUAL Q15M PRN PRN Reason: Chest Pain Non-Formulary Medication (Semaglutide [Rybelsus]) 7 mg PO DAILY [facility] Ondansetron HCl (Ondansetron Hcl 4 Mg/2 Ml Vial) 4 mg IVPUSH Q8H PRN PRN Reason: Nausea and Vomiting Oxycodone HCl (Oxycodone Hcl Immed Release 5 Mg Tablet) 5 mg PO Q6H PRN PRN Reason: Pain, Moderate(Pain Scale 4-6) Sodium Chloride (0.9 % Sodium Chloride Flush 3 Ml Syringe) 3 ml IVFLUSH QSHIFT [facility] Last Admin: 07/07/24 07:04 Dose: Not Given Documented By: MELI Non-Admin Reason: IV Running Tiotropium [place] (Tiotropium [place] 2.5 Mcg 1 Puff/2.5 Mcg Mist.Inhal) 2 puff INHALE BID [facility] Last Admin: 07/06/24 19:50 Dose: Not Given Documented By: ALLIE Non-Admin Reason: Med Not Available Vortioxetine (Vortioxetine Hydrobromide 10 Mg Tablet) 10 mg PO BEDTIME [facility] Last Admin: 07/06/24 23:25 Dose: 10 mg Documented By: TROY Labs Labs: Laboratory Results - last 24 hr 07/06/24 07/07/24 10:56 07:45 POC Glucose 260 H 182 H Procedures Date of Service Date of Service: 07/07/24 Progress Note: A&P Assessment and plan (1) Incisional hernia: Status: Acute Plan Pod 1 following repair of an incisional hernia with mesh. Patient mainly complains of incisional pain. Wounds are clean, dry and intact. Will add IV Tylenol. Can not use Toradol as patient is on antiplatelet therapy Encouraged out of bed and ambulation. Patient will need continued hospitalization due to pain control. Hospitalist consultation for med management. Time Spent With Patient Time: Total time managing care of this patient today ____ minutes. Quality Stroke Does the patient have a stroke diagnosis?: No VTE Prior VTE?: No VTE Risk Level:: Surgical - moderate VTE Device Contraindication: N/A - Device Ordered VTE Drug Contraindication: Treatment Not Indicated
[2024-07-07] MEDS: Calcium + Vitamin D 250 MG TABLET PO (08:12)
[2024-07-07] MEDS: Losartan Potassium 25 MG TABLET PO (08:13)
[2024-07-07] MEDS: Empagliflozin 25 MG TABLET PO (08:13)
[2024-07-07] MEDS: Acetaminophen 1,000 MG/100 ML PIGGYBACK 400 MG IV ×3 (08:17→19:19)
--- NOTE | 2024-07-07 08:41 | HO.PM.IMCN ---
History of Present Illness Data of Consult Service Date: 07/07/24 Requesting physician: Anthony Esteves Primary Care Provider: MD ARIES Rogel Reason for consult: medical consult 74 yo f with a pmhx significant for hypertension, colon cancer, lung cancer, CAD, GERD, pulmonary nodule, COPD, dyslipidemia, TIA, and type 2 diabetes, status post incisional hernia repair x4 yesterday. she is having signficant pain at the incision site, rating it a 7/10 ache while lying down, 10/10 sharp pains with movement. No erythema or drainage. She reports her diabetes has not been well-controlled, blood sugars usually run high at home. No nausea, vomiting, chest pain, or SOB. Has not been able to pass gas or have a bowel movement yet. Urinating as normal. Review of Systems Constitutional: Constitutional: Denies chills, Denies fever(s) and Denies headache(s) ENT: Denies headache(s) Cardiovascular: Cardiovascular: Denies rapid heart rate, Denies pedal edema, Denies lightheadedness and Denies dyspnea Respiratory: Respiratory: Denies chest congestion, Denies cough and Denies dyspnea Gastrointestinal: Gastrointestinal: Denies diarrhea, Denies nausea and Denies vomiting Genitourinary: Genitourinary: Denies dysuria Integumentary/Breasts: Skin/Breast: Denies rash Neurologic: Denies headache(s) [facility] Medical History (Updated 07/07/24 @ 11:01 by Tova Garza PA-C) History of transfusion of packed red blood cells Migraine History of placement of stent in LAD coronary artery Osteoporosis Hyperlipidemia Depression CAD (coronary artery disease) Sleep apnea On anticoagulant therapy TIA (transient ischemic attack) Myocardial infarction Obesity Diabetes Dyslipidemia History of colon cancer HTN (hypertension) Carotid stenosis, asymptomatic GERD (gastroesophageal reflux disease) Colon cancer Pre-op chest exam Lung cancer Pulmonary nodules Dyspnea COPD (chronic obstructive pulmonary disease) Pulmonary nodule Functional capacity: independent ambulation Surgical History Hx of tonsillectomy Hx of tubal ligation History of dental surgery Hx of cardiac catheterization History of lobectomy of lung Social History Household Members: None Housing: House Are you a primary healthcare administrative assistant to a significant other at home: No Do you presently have visiting nurse or other home services: No Patient Tobacco Use Status: Former Tobacco user Tobacco use type: Cigarette Years Smoked: 20+ Years Smoked in Last 30 Days: No Patient Interested in Nicotine Replacement: No Patient Given Instructions on How to Stop Smoking: No Second Hand Smoke Exposure: No Use of substances other than those prescribed or required for medical reasons: No Currently Displaying Signs/Symptoms of Drug Intoxication Withdrawal: No Any prior treatment program specific to substance use: No Have you been hit, kicked, punched, or otherwise hurt by someone within the past year? If so, by whom?: No Do you feel safe in your current relationship?: No Current Relationship Is there a partner from a previous relationship who is making you feel unsafe now?: No Are you DNR?: No Advance Directives: No Advance Directives Information Provided: Yes Advance Directives on File: No Do you have a plan to hurt others: No Plan Recently lost weight without trying: No Eating poorly because of decreased appetite: No Nutrition Risks: No Nutritional Risk Patient : No : No Poor oral hygiene: No service: No Meds Allergies Allergy/AdvReac Type Severity Reaction Status Date / Time gabapentin [From Neurontin] Allergy Severe Itching Verified 07/06/24 07:08 latex Allergy Severe Swelling Verified 06/25/24 10:56 levofloxacin [Levaquin] Allergy Severe Swelling Verified 06/25/24 10:56 Aspirin Allergy Severe Swelling Uncoded 06/25/24 10:56 Active Medications: Current Medications Albuterol Sulfate (Albuterol Sulfate 90 Mcg 8 Gm Inhaler) 2 puff INHALE Q6H PRN PRN Reason: shortness of breath or wheezing Calcium Carbonate (Calcium Carbonate 750 Mg Tab.Chew) 750 mg PO Q4H PRN PRN Reason: Heartburn Calcium Carbonate/Cholecalciferol (Calcium + Vitamin D 250 Mg Tablet) 250 mg PO DAILY [facility] Last Admin: 07/07/24 08:12 Dose: 250 mg Clopidogrel Bisulfate (Clopidogrel Bisulfate 75 Mg Tablet) 75 mg PO BEDTIME [facility] Last Admin: 07/06/24 23:24 Dose: 75 mg Ezetimibe (Ezetimibe 10 Mg Tablet) 10 mg PO DAILY [facility] Last Admin: 07/07/24 08:13 Dose: Not Given Empagliflozin (Empagliflozin 25 Mg Tablet) 25 mg PO DAILY [facility] Last Admin: 07/07/24 08:13 Dose: 25 mg Famotidine (Famotidine 20 Mg Tablet) 40 mg PO BEDTIME PRN PRN Reason: Acid Reflux Fluticasone/Vilanterol (Fluticasone/Vilanterol 200/25 Blst.W.Dev) 1 puff INHALE DAILY [facility] Hydromorphone HCl (Hydromorphone Hcl 0.5 Mg/0.5 Ml Syringe) 0.5 mg IVPUSH Q3H PRN; Protocol PRN Reason: Pain, Severe (Pain Scale 7-10) Last Admin: 07/07/24 06:37 Dose: 0.5 mg Acetaminophen (Ofirmev) 1,000 mg in 100 mls @ 400 mls/hr IV Q6H [facility] Last Admin: 07/07/24 08:17 Dose: 400 mls/hr Loperamide HCl (Loperamide Hcl 2 Mg Capsule) 2 mg PO BID [facility] Last Admin: 07/07/24 08:12 Dose: Not Given Lorazepam (Lorazepam 0.5 Mg Tablet) 0.5 mg PO BID PRN PRN Reason: Anxiety Last Admin: 07/06/24 23:42 Dose: 0.5 mg Losartan Potassium (Losartan Potassium 25 Mg Tablet) 25 mg PO DAILY [facility]; Protocol Last Admin: 07/07/24 08:13 Dose: 25 mg Magnesium Hydroxide (Milk Of Magnesia 30 Ml Oral.Susp) 30 ml PO DAILY PRN PRN Reason: Constipation Melatonin (Melatonin 3 Mg Tablet) 6 mg PO BEDTIME PRN PRN Reason: Insomnia Last Admin: 07/06/24 23:42 Dose: 6 mg Naloxone HCl (Naloxone Hcl 0.4 Mg/Ml Vial) 0.04 mg IVPUSH Q5M PRN PRN Reason: Excessive sedation or RR < 8 Naloxone HCl (Naloxone Hcl 0.4 Mg/Ml Vial) 0.04 mg IVPUSH Q5M PRN PRN Reason: Excessive sedation or RR < 8 Naloxone HCl (Naloxone Hcl 0.4 Mg/Ml Vial) 0.04 mg IVPUSH Q5M PRN PRN Reason: Excessive sedation or RR < 8 Naloxone HCl (Naloxone Hcl 0.4 Mg/Ml Vial) 0.04 mg IVPUSH Q5M PRN PRN Reason: Excessive sedation or RR < 8 Nitroglycerin (Nitroglycerin 0.4 Mg Tab.Subl) 0.4 mg SUBLINGUAL Q15M PRN PRN Reason: Chest Pain Non-Formulary Medication (Semaglutide [Rybelsus]) 7 mg PO DAILY [facility] Ondansetron HCl (Ondansetron Hcl 4 Mg/2 Ml Vial) 4 mg IVPUSH Q8H PRN PRN Reason: Nausea and Vomiting Oxycodone HCl (Oxycodone Hcl Immed Release 5 Mg Tablet) 5 mg PO Q6H PRN PRN Reason: Pain, Moderate(Pain Scale 4-6) Sodium Chloride (0.9 % Sodium Chloride Flush 3 Ml Syringe) 3 ml IVFLUSH QSHIFT [facility] Last Admin: 07/07/24 07:04 Dose: Not Given Tiotropium [place] (Tiotropium [place] 2.5 Mcg 1 Puff/2.5 Mcg Mist.Inhal) 2 puff INHALE BID [facility] Last Admin: 07/06/24 19:50 Dose: Not Given Vortioxetine (Vortioxetine Hydrobromide 10 Mg Tablet) 10 mg PO BEDTIME [facility] Last Admin: 07/06/24 23:25 Dose: 10 mg Home Medications ?Medication ?Instructions ?Recorded ?Confirmed ?Last Taken ?Type clopidogrel 75 mg tablet 75 mg PO QPM 09/29/20 06/26/24 06/30/24 History ezetimibe 10 mg tablet 10 mg PO DAILY 09/29/20 06/26/24 07/06/24 History lorazepam 0.5 mg tablet 0.5 mg PO BID PRN Anxiety 09/29/20 06/26/24 Unknown History losartan 50 mg tablet 25 mg PO DAILY 09/29/20 07/06/24 Unknown History nitroglycerin 0.4 mg sublingual 0.4 mg sublingual DIRECTED PRN 09/29/20 06/26/24 Unknown History tablet Chest Pain rosuvastatin 40 mg tablet 40 mg PO BEDTIME 09/29/20 06/26/24 Unknown History vortioxetine 10 mg tablet 10 mg PO BEDTIME 09/29/20 06/26/24 Unknown History empagliflozin 25 mg tablet 25 mg PO DAILY 12/02/20 06/26/24 07/02/24 History nystatin 100,000 unit/gram topical 1 appl topical BID 12/06/22 06/26/24 Unknown History powder (Nyamyc) gabapentin 300 mg capsule 300 mg PO DAILY PRN Pain 06/25/24 06/26/24 Unknown History semaglutide 7 mg tablet (Rybelsus) 7 mg PO DAILY 06/25/24 06/26/24 07/02/24 History budesonide-formoterol HFA 160 2 puff inhalation BID 06/26/24 06/26/24 07/06/24 History mcg-4.5 mcg/actuation aerosol inhaler calcium carbonate 600 mg-vitamin 1 tab PO DAILY 06/26/24 06/26/24 Unknown History D3 5 mcg (200 unit) tablet cetirizine 10 mg tablet (Zyrtec) 10 mg PO BID PRN Allergy Symptoms 06/26/24 06/26/24 Unknown History cholecalciferol (vitamin D3) 50 50 mcg PO DAILY 06/26/24 06/26/24 Unknown History mcg (2,000 unit) capsule (Vitamin D3) famotidine 40 mg tablet (Pepcid) 40 mg PO BEDTIME PRN Acid Reflux 06/26/24 06/26/24 07/06/24 History loperamide 2 mg tablet (Imodium 2 mg PO BID 06/26/24 06/26/24 Unknown History A-D) multivitamin 1 tab PO DAILY 06/26/24 06/26/24 Unknown History tiotropium bromide 2.5 2 inh PO BID 06/26/24 06/26/24 07/06/24 History mcg/actuation mist for inhalation (Spiriva Respimat) Physical Exam Vital Signs and Narrative: Vital Signs: Last Vital Signs Temp 98.2 F 07/07/24 07:52 Pulse 67 07/07/24 07:52 Resp 14 07/07/24 07:52 BP 114/56 L 07/07/24 07:52 Pulse Ox 93 07/07/24 07:52 O2 Del Method Room Air 07/07/24 07:52 O2 Flow Rate 2 07/06/24 13:05 BMI result Body Mass Index 30.1 General: AOx3, no acute distress Resp: CTA bilaterally CVS: RRR, +murmur LUSB and RUSB Skin: Warm, dry, pt did not want me to look at surgical site. states everyone has looked at it multiple times this AM Extremities: No edema Psych: Appropriate affect Results Labs Labs: Laboratory Results - last 24 hr 07/06/24 07/07/24 10:56 07:45 POC Glucose 260 H 182 H Assessment and Plan (1) Routine medical exam: Status: Acute (2) Diabetes: Status: Acute Plan 74 yo f with a pmhx significant for hypertension, colon cancer, lung cancer, CAD, GERD, pulmonary nodule, COPD, HLD, TIA, and type 2 diabetes, status post incisional hernia repair x4 yesterday. s/p incisional hernia repair - plan per surgery Hypertension - continue losartan CAD - continue clopidogrel COPD - continue Spiriva, budesonide, albuterol as needed HLD - continue ezetimibe T2DM - hold jardiance and semaglutide - SSI - diabetic diet Thank you for allowing me to participate in the pt's care. Signing off for now. Please contact the medical team if any questions or concerns.
--- NOTE | 2024-07-07 08:53 | HO.POSTANES ---
Post Anesthesia Evaluation Post Anesthesia Evaluation Date of Service: 07/07/24 Vital Signs: Vital Signs Temp Pulse Resp BP Pulse Ox O2 Del Method 07/07/24 07:52 98.2 F 67 14 114/56 L 93 Room Air 07/07/24 04:00 98.0 F 65 17 119/58 L 94 Room Air 07/06/24 23:20 97.0 F 72 18 115/56 L 93 Room Air Anesthesia: General Endotracheal-GETA Mental Status: Awake Pain Control: Satisfactory Nausea/Vomiting: None Hydration: Adequate Anesthesia-Related Issues: No Anes. Related Issues
--- NOTE | 2024-07-07 10:39 | MHC.CM.PN ---
pt lives alone has own ride home had no services prior to admission pt has own ride home
[2024-07-07 11:23] LABS: Glucose, Whole Blood 156 mg/dL (60-115)
[2024-07-07] MEDS: 0.9 % Sodium Chloride Flush 3 ML SYRINGE IVFLUSH ×2 (13:31→19:25)
[2024-07-07 15:47] VITALS: BP 126/66; PULSE 60; RESP 16; TEMP 36.1; O2SAT 93
[2024-07-07 16:22] LABS: Glucose, Whole Blood 168 mg/dL (60-115)
[2024-07-07] MEDS: Clopidogrel Bisulfate 75 MG TABLET PO (19:24)
[2024-07-07] MEDS: Vortioxetine Hydrobromide 10 MG TABLET PO (19:25)
[2024-07-07 19:26] VITALS: BP 122/77; PULSE 82; RESP 18; TEMP 36.6; O2SAT 92
[2024-07-07] MEDS: ondansetron HCL 4 MG/2 ML VIAL IVPUSH (21:26)
[2024-07-07] MEDS: Famotidine 20 MG TABLET 40 MG PO (23:39)
[2024-07-08 02:00] VITALS: BP 126/68; PULSE 78; RESP 16; TEMP 37.6; O2SAT 96
[2024-07-08] MEDS: LORazepam 0.5 MG TABLET PO (02:06)
[2024-07-08] MEDS: Melatonin 3 MG TABLET 6 MG PO (02:06)
[2024-07-08] MEDS: Acetaminophen 1,000 MG/100 ML PIGGYBACK 400 MG IV ×2 (02:11→07:33)
[2024-07-08 07:11] VITALS: BP 106/59; PULSE 64; RESP 16; TEMP 37.1; O2SAT 93
[2024-07-08 07:12] LABS: Glucose, Whole Blood 138 mg/dL (60-115)
[2024-07-08] MEDS: 0.9 % Sodium Chloride Flush 3 ML SYRINGE IVFLUSH (07:32)
[2024-07-08] MEDS: Ezetimibe 10 MG TABLET PO (07:34)
[2024-07-08] MEDS: Losartan Potassium 25 MG TABLET PO (07:34)
[2024-07-08] MEDS: Calcium + Vitamin D 250 MG TABLET PO (07:35)
--- NOTE | 2024-07-08 07:55 | P.PNGS_ITS ---
Subjective Subjective Date of Service: 07/08/24 Interval history: Had episode of vomiting yesterday but nausea resolved. Pain better controlled this morning. OOB and ambulating without difficulty. Passing flatus and had BM last night. Would like to go home. Physical Exam Vital Signs: Vital Signs: Last Vital Signs Temp 98.7 F 07/08/24 07:11 Pulse 64 07/08/24 07:11 Resp 16 07/08/24 07:11 BP 106/59 L 07/08/24 07:11 Pulse Ox 93 07/08/24 07:11 O2 Del Method Room Air 07/08/24 07:11 O2 Flow Rate 2 07/06/24 13:05 BMI result Body Mass Index 30.1 Const: General: comfortable, no acute distress and alert Orientation/consciousness: patient oriented x3 Resp: Effort & Inspection: normal respiratory effort GI: Inspection: No distended and Yes incision (clean) Palpation (GI): Soft to palpation Skin: General skin exam: no rashes or lesions noted Neuro: General: patient oriented x3 and moves all extremities Objective Data Active Medications Albuterol Sulfate (Albuterol Sulfate 90 Mcg 8 Gm Inhaler) 2 puff INHALE Q6H PRN PRN Reason: shortness of breath or wheezing Calcium Carbonate (Calcium Carbonate 750 Mg Tab.Chew) 750 mg PO Q4H PRN PRN Reason: Heartburn Calcium Carbonate/Cholecalciferol (Calcium + Vitamin D 250 Mg Tablet) 250 mg PO DAILY [facility] Last Admin: 07/08/24 07:35 Dose: 250 mg Documented By: MELI Clopidogrel Bisulfate (Clopidogrel Bisulfate 75 Mg Tablet) 75 mg PO BEDTIME [facility] Last Admin: 07/07/24 19:24 Dose: 75 mg Documented By: YUE Ezetimibe (Ezetimibe 10 Mg Tablet) 10 mg PO DAILY [facility] Last Admin: 07/08/24 07:34 Dose: 10 mg Documented By: MELI Empagliflozin (Empagliflozin 25 Mg Tablet) 25 mg PO DAILY [facility] Last Admin: 07/07/24 08:13 Dose: 25 mg Documented By: MELI Famotidine (Famotidine 20 Mg Tablet) 40 mg PO BEDTIME PRN PRN Reason: Acid Reflux Last Admin: 07/07/24 23:39 Dose: 40 mg Documented By: GREY Fluticasone/Vilanterol (Fluticasone/Vilanterol 200/25 Blst.W.Dev) 1 puff INHALE DAILY [facility] Last Admin: 07/07/24 11:11 Dose: Not Given Documented By: JOSEPH Non-Admin Reason: See Note Glucose (Glucose Gel 15 Gm Gel..Gram.) 15 gm PO Q15M PRN; Protocol PRN Reason: per Hypoglycemia Standing Ord. Hydromorphone HCl (Hydromorphone Hcl 0.5 Mg/0.5 Ml Syringe) 0.5 mg IVPUSH Q3H PRN; Protocol PRN Reason: Pain, Severe (Pain Scale 7-10) Last Admin: 07/07/24 16:54 Dose: 0.5 mg Documented By: MELI Acetaminophen (Ofirmev) 1,000 mg in 100 mls @ 400 mls/hr IV Q6H [facility] Last Infusion: 07/08/24 07:53 Dose: Infused Documented By: MELI Dextrose (D10) 250 mls @ 750 mls/hr IV Q15M PRN; Protocol PRN Reason: per Hypoglycemia Standing Ord. Insulin Human Lispro (Insulin Lispro 100 Unit/Ml 3 Ml Vial) 0 unit SUBCUT QIDACHS [facility]; Protocol Last Admin: 07/08/24 07:23 Dose: Not Given Documented By: MELI Non-Admin Reason: Patient Refused Loperamide HCl (Loperamide Hcl 2 Mg Capsule) 2 mg PO BID [facility] Last Admin: 07/08/24 07:41 Dose: Not Given Documented By: MELI Non-Admin Reason: Patient Refused Lorazepam (Lorazepam 0.5 Mg Tablet) 0.5 mg PO BID PRN PRN Reason: Anxiety Last Admin: 07/08/24 02:06 Dose: 0.5 mg Documented By: GREY Losartan Potassium (Losartan Potassium 25 Mg Tablet) 25 mg PO DAILY [facility]; Protocol Last Admin: 07/08/24 07:34 Dose: 25 mg Documented By: MELI Magnesium Hydroxide (Milk Of Magnesia 30 Ml Oral.Susp) 30 ml PO DAILY PRN PRN Reason: Constipation Melatonin (Melatonin 3 Mg Tablet) 6 mg PO BEDTIME PRN PRN Reason: Insomnia Last Admin: 07/08/24 02:06 Dose: 6 mg Documented By: GREY Naloxone HCl (Naloxone Hcl 0.4 Mg/Ml Vial) 0.04 mg IVPUSH Q5M PRN PRN Reason: Excessive sedation or RR < 8 Naloxone HCl (Naloxone Hcl 0.4 Mg/Ml Vial) 0.04 mg IVPUSH Q5M PRN PRN Reason: Excessive sedation or RR < 8 Naloxone HCl (Naloxone Hcl 0.4 Mg/Ml Vial) 0.04 mg IVPUSH Q5M PRN PRN Reason: Excessive sedation or RR < 8 Naloxone HCl (Naloxone Hcl 0.4 Mg/Ml Vial) 0.04 mg IVPUSH Q5M PRN PRN Reason: Excessive sedation or RR < 8 Nitroglycerin (Nitroglycerin 0.4 Mg Tab.Subl) 0.4 mg SUBLINGUAL Q15M PRN PRN Reason: Chest Pain Ondansetron HCl (Ondansetron Hcl 4 Mg/2 Ml Vial) 4 mg IVPUSH Q8H PRN PRN Reason: Nausea and Vomiting Last Admin: 07/07/24 21:26 Dose: 4 mg Documented By: YUE Oxycodone HCl (Oxycodone Hcl Immed Release 5 Mg Tablet) 5 mg PO Q6H PRN PRN Reason: Pain, Moderate(Pain Scale 4-6) Sodium Chloride (0.9 % Sodium Chloride Flush 3 Ml Syringe) 3 ml IVFLUSH QSHIFT [facility] Last Admin: 07/08/24 07:32 Dose: 3 ml Documented By: MELI Tiotropium [place] (Tiotropium [place] 2.5 Mcg 1 Puff/2.5 Mcg Mist.Inhal) 2 puff INHALE BID [facility] Last Admin: 07/07/24 19:19 Dose: Not Given Documented By: JOSEPH Non-Admin Reason: Patient Refused Vortioxetine (Vortioxetine Hydrobromide 10 Mg Tablet) 10 mg PO BEDTIME [facility] Last Admin: 07/07/24 19:25 Dose: 10 mg Documented By: YUE Labs Labs: Laboratory Results - last 24 hr 07/07/24 07/07/24 07/08/24 11:16 16:16 07:06 POC Glucose 156 H 168 H 138 H Procedures Date of Service Date of Service: 07/08/24 Progress Note: A&P Assessment and plan (1) Incisional hernia: Status: Acute Plan POD #2 s/p repair of incisional hernia with mesh. DOing well post op, pain improved. Abd benign with clean incision, mild incisional tenderness. Will reassess later this morning, if remains comfortable and tolerating diet, stable for dc to home. Patient comfortable with plan. Time Spent With Patient Time: Total time managing care of this patient today ____ minutes. Quality Stroke Does the patient have a stroke diagnosis?: No VTE Prior VTE?: No VTE Risk Level:: Surgical - moderate VTE Device Contraindication: N/A - Device Ordered VTE Drug Contraindication: Treatment Not Indicated
[2024-07-08] MEDS: Fluticasone/Vilanterol 200/25 BLST.W.DEV 1 PUFF INHALE (08:10)
[2024-07-08] MEDS: Tiotropium Bromide 2.5 mcg 1 PUFF/2.5 MCG MIST.INHAL 2 PUFF INHALE (08:10)
[2024-07-08 08:12] VITALS: PULSE 75; RESP 16; O2SAT 93
[2024-07-08 11:30] LABS: Glucose, Whole Blood 135 mg/dL (60-115)
--- NOTE | 2024-07-08 11:55 | PM.DS ---
DS: Providers Provider Date of Service: 07/08/24 Date of discharge: 07/08/24 Primary care physician: Kym Carranza MD Attending physician on admission: Anthony Esteves Consults: 07/07/24 07:48 Consult to Hospitalist Routine Comment: Consulting Provider: Hospitalist Reason For Exam: hernia repair, med management Attending physician on discharge: Anthony Esteves DS: Diagnosis Discharge Diagnosis (1) Incisional hernia: Status: Acute DS: Summary Hospital Course Hospital Course: HPI AT ADMISSION: 74-year-old female patient with a prior history of colon cancer status post colon resection with an upper midline incision now presenting with 2 palpable lumps in the midline incision which increase in size with Valsalva maneuvers but reduce with light pressure. Patient was found to have a palpable incisional hernia x2. She now presents for repair of these incisional hernias with mesh. HOSPITAL COURSE: On 07/06/24, repair of incisional hernia x4 with mesh was performed by Dr. Esteves without complication. Patient was explored through the midline incision and a total of 4 fascial defects including the 2 previously noted hernias and 2 smaller hernias all within the midline incision and this was repaired using an 8 cm round Ventralex mesh. She tolerated the procedure well and stayed two nights for pain control. On the day of discharge, she was tolerating a solid diet, had good pain control on oral analgesics, was ambulating without difficulty. She had a benign abd exam with clean incision. She was discharged to home on 07/08/24 in stable condition. She is to follow up in the office in 1 week. Status at Discharge Functional status at discharge: independent ambulation Overall status at discharge: patient is progressing back to baseline Time Attestation Discharge Coordination Time (in mins): 30 Quality: Safe Use of Opioids Does Pt have an Active Cancer Diagnosis on the Problem List?: No Quality: Stroke Does the patient have a stroke diagnosis?: No Physical Exam Vital Signs: Vital Signs: Last Vital Signs Temp 98.7 F 07/08/24 07:11 Pulse 75 07/08/24 08:12 Resp 16 07/08/24 08:12 BP 106/59 L 07/08/24 07:11 Pulse Ox 93 07/08/24 07:11 O2 Del Method Room Air 07/08/24 07:11 O2 Flow Rate 2 07/06/24 13:05 BMI result Body Mass Index 30.1 Const: General: comfortable, no acute distress and alert Orientation/consciousness: patient oriented x3 Resp: Effort & Inspection: normal respiratory effort GI: Inspection: No distended and Yes incision (clean) Palpation (GI): Soft to palpation and no guarding Skin: General skin exam: no rashes or lesions noted Neuro: General: patient oriented x3 Discharge Plan Discharge Patient Disposition: Home, Self-Care Referrals: Kym Carranza MD [Primary Care Provider] - 1 Week Anthony Esteves MD [Physician] - 1 Week Discharge Medications: Continued albuterol sulfate 90 mcg/actuation HFA aerosol inhaler 2 inh inhalation Q6H PRN (Reason: shortness of breath or wheezing) 30 Days Qty: 18 12RF Spiriva Respimat 2.5 mcg/actuation mist 2 inh PO BID budesonide-formoterol 160-4.5 mcg/actuation Hfa Aerosol Inhaler 2 puff INHALATION BID famotidine [Pepcid] 40 mg tablet 40 mg PO BEDTIME PRN (Reason: Acid Reflux) multivitamin Tablet 1 tab PO DAILY cetirizine [Zyrtec] 10 mg Tablet 10 mg PO BID PRN (Reason: Allergy Symptoms) loperamide [Imodium A-D] 2 mg Tablet 2 mg PO BID calcium carbonate-vitamin D3 600 mg-5 mcg (200 unit) Tablet 1 tab PO DAILY cholecalciferol (vitamin D3) [Vitamin D3] 50 mcg (2,000 unit) Capsule 50 mcg PO DAILY vortioxetine 10 mg tablet 10 mg PO BEDTIME clopidogrel 75 mg tablet 75 mg PO QPM lorazepam 0.5 mg tablet 0.5 mg PO BID PRN (Reason: Anxiety) rosuvastatin 40 mg tablet 40 mg PO BEDTIME ezetimibe 10 mg tablet 10 mg PO DAILY losartan 50 mg tablet 25 mg PO DAILY nitroglycerin 0.4 mg tablet, sublingual 0.4 mg sublingual DIRECTED PRN (Reason: Chest Pain) empagliflozin 25 mg tablet 25 mg PO DAILY nystatin [Nyamyc] 100,000 unit/gram powder 1 appl topical BID gabapentin 300 mg capsule 300 mg PO DAILY PRN (Reason: Pain) Rybelsus 7 mg tablet 7 mg PO DAILY Discontinued oxycodone 5 mg tablet 5 mg PO TID PRN (Reason: severe pain (scale score 7-10)) Qty: 10 0RF Rx Instructions: Partial Fill upon patient request. You may cut tablets in half No Action cyclobenzaprine 10 mg tablet 10 mg PO BID PRN (Reason: muscle spasm) Qty: 30 0RF Discharge Orders: Discharge Order (Routine); Ordered 07/08/24 Ordered By: Ceci Green Diet: Diabetic diet Activity on Discharge: No heavy lifting Activity Restrictions/Additional Instructions: No lifting > 10 pounds for 1 month No driving for one week Ice to the incision x 24 hours After 24 hours, use warm compress or heating pad on low as needed Take Tylenol Extra-strength 1-2 tabs every 6 hours for the first day, then prn Oxycodone every 6-8 hours as needed for pain Colace 100 mg every day as needed for constipation Remove dressing in 3 days Follow up in office in one week. Print Language: [place] Discharge Date/Time: 07/08/24 12:41
--- NOTE | 2024-07-08 12:22 | PC.NURSE ---
Discharge reviewed with patients, no questions at this time, Medications, activity, follow up, symptoms worsening. IV Removed, tolerated well. Pt to be brought down stairs via w/c when ride comes.
== END 2024-07-08 12:41 | disposition home or self-care (01) ==
LOC: HO.SSS 08:47 → HO.S3 12:11
PROVIDERS: PCP Internal Medicine; Visit Provider Surgery
PROC: (CPT 49593; principal; 2024-07-06 08:40)
DX: K43.2 Incisional hernia without obstruction or gangrene (principal); K21.9 Gastro-esophageal reflux disease without esophagitis; E11.9 Type 2 diabetes mellitus without complications; Z85.038 Personal history of other malignant neoplasm of large intestine; Z90.49 Acquired absence of other specified parts of digestive tract; Z85.118 Personal history of other malignant neoplasm of bronchus and lung; Z90.2 Acquired absence of lung [part of]; J44.9 Chronic obstructive pulmonary disease, unspecified; R91.8 Other nonspecific abnormal finding of lung field; I65.23 Occlusion and stenosis of bilateral carotid arteries; I65.29 Occlusion and stenosis of unspecified carotid artery; I10 Essential (primary) hypertension; Z79.51 Long term (current) use of inhaled steroids; Z79.84 Long term (current) use of oral hypoglycemic drugs; Z79.899 Other long term (current) drug therapy; Z88.1 Allergy status to other antibiotic agents; Z88.6 Allergy status to analgesic agent; Z91.040 Latex allergy status; Z87.891 Personal history of nicotine dependence
CPT/HCPCS: 49593; 82947; 94640; C1781; J0131; J0690; J1100; J1171; J2003; J2250; J2371; J2405; J2704; J2795; J3010

== ENCOUNTER → 2024-07-06 07:01 | Outpatient (BNV) | payer MEDICARE, SELFPAY | PROVIDERS: PCP Internal Medicine; Visit Provider Physician Assistant | DX: E11.8 Type 2 diabetes mellitus with unspecified complications (principal); I10 Essential (primary) hypertension; I25.10 Atherosclerotic heart disease of native coronary artery without angina pectoris | CPT/HCPCS: 99222 ==

== ENCOUNTER → 2024-07-06 07:01 | Outpatient (BNV) | payer MEDICARE, SELFPAY | PROVIDERS: PCP Internal Medicine; Visit Provider Surgery | DX: K43.2 Incisional hernia without obstruction or gangrene (principal) | CPT/HCPCS: 49593; 99212; 99213; 99214; 99232; 99499 ==

== ENCOUNTER 2024-07-16 11:10 | Outpatient (AMB) | payer OTHER, SELFPAY ==
--- NOTE | 2024-07-16 11:13 | MHC.OFFVIS ---
Vital Signs 07/16/24 11:21 Height 5 ft 4 in Weight 163 lb BMI 28.0 BP 136/69 Blood Pressure Location Lt brachial Position Sitting Pulse 95 Intake Visit Reasons: S/P incisional hernia w/mesh x2 Intake Note: Patient is seen in office for post op assessment post Repair of incisional hernia x4 with mesh. Pt c/o: increase pain since surgery in the incisions, denies discharge, redness or other concerns surgery: 07/06/24 Aoc Director Intelligence Officer Required: No Accompanied by: Family/Other Allergies gabapentin [From Neurontin] Allergy (Severe, Verified 07/16/24 11:20) Itching latex Allergy (Severe, Verified 07/16/24 11:20) Swelling levofloxacin [Levaquin] Allergy (Severe, Verified 07/16/24 11:20) Swelling Aspirin Allergy (Severe, Uncoded 07/16/24 11:20) Swelling HPI Comments Details: 74-year-old female patient returning 1 week following repair of an incisional hernia in the upper midline abdomen. The surgery was performed on 07/06/2024 using an 8 cm round Ventralex mesh. She was subsequently discharged to home on 07/08/2024. She reports mainly incisional pain and pain with sleeping. She denies any bleeding or discharge from the incision. She has been eating without any nausea or vomiting. Her bowels are normal as well. [facility] Medical History History of transfusion of packed red blood cells Migraine History of placement of stent in LAD coronary artery Osteoporosis Hyperlipidemia Depression CAD (coronary artery disease) Sleep apnea On anticoagulant therapy TIA (transient ischemic attack) Myocardial infarction Obesity Diabetes Dyslipidemia History of colon cancer HTN (hypertension) Carotid stenosis, asymptomatic GERD (gastroesophageal reflux disease) Colon cancer Pre-op chest exam Lung cancer Pulmonary nodules Dyspnea COPD (chronic obstructive pulmonary disease) Pulmonary nodule Surgical History History of incisional hernia repair (07/06/24) Hx of tonsillectomy Hx of tubal ligation History of dental surgery Hx of cardiac catheterization History of lobectomy of lung Social History Household Members: None Housing: House Are you a primary healthcare administrator to a significant other at home: No Do you presently have visiting nurse or other home services: No Patient Tobacco Use Status: Former Tobacco user Tobacco use type: Cigarette Years Smoked: 20+ Years Second Hand Smoke Exposure: No service: No Physical Exam Const General: no acute distress Nutritional Appearance: well nourished Orientation/consciousness: patient oriented x3 Resp Effort & Inspection: normal respiratory effort GI Other: Midline abdominal incision is clean, dry, and intact. It is sensitive to touch but no erythema or evidence of hernia recurrence. Skin Other: Warm, dry, no rash Neuro General: patient oriented x3 Assessment & Plan Assessment & Plan (1) Incisional hernia: Code(s): K43.2 - Incisional hernia without obstruction or gangrene Category: Medical Qualifiers: Obstruction and gangrene presence: without obstruction or gangrene Qualified Code(s): K43.2 - Incisional hernia without obstruction or gangrene Plan 74-year-old female patient returning 1 week following repair of an incisional hernia with mesh. Her wounds are clean and intact. Her major problem is abdominal incisional pain. Recommended applying warm compress to the incision. She should also alternate Tylenol with ibuprofen. I have prescribed a muscle relaxant to help with sleep. I have asked her to return approximately 1 month. Medications: New cyclobenzaprine 10 mg PO BID PRN 30 tabs 0RF muscle spasm K43.2 - Incisional hernia without obstruction or gangrene Coding Level of Care Code Global (20982) Diagnoses Incisional hernia, without obstruction or gangrene K43.2 Obstruction and gangrene presence: without obstruction or gangrene
[2024-07-16 11:21] VITALS: BP 136/69; PULSE 95; BMI 28.0
== END 2024-07-16 11:30 | disposition home or self-care (01) ==
PROVIDERS: PCP Internal Medicine; Visit Provider Surgery
DX: K43.2 Incisional hernia without obstruction or gangrene (principal); Z09 Encounter for follow-up examination after completed treatment for conditions other than malignant neoplasm
CPT/HCPCS: 99213

== ENCOUNTER → 2024-07-16 11:10 | Outpatient (BNVA) | payer OTHER, SELFPAY | PROVIDERS: PCP Internal Medicine; Visit Provider Surgery ==

== ENCOUNTER 2024-08-20 13:08 | Outpatient (AMB) | payer OTHER, SELFPAY ==
--- NOTE | 2024-08-20 13:09 | A.OFFVIS_ITS ---
Vital Signs 3 08/20/24 13:18 Height 5 ft 4 in Weight 162 lb 2 oz BMI 27.8 BP 119/73 Blood Pressure Location Lt brachial Position Sitting Pulse 95 Intake Visit Reasons: 1 mth follow up S/P incisional hernia w/mesh x2 Intake Note: Patient is seen in office for one month follow up visit, post repair of incisional hernia x4 with mesh. Pt c/o: continued pain/discomfort along both side of the ribs, when eating/drinking ends up spitting bile , reflux, getting worse, denies nausea or vomit, constipation Shank Maker Required: No Accompanied by: Self / Same As Patient Allergies gabapentin [From Neurontin] Allergy (Severe, Verified 08/20/24 13:17) Itching latex Allergy (Severe, Verified 08/20/24 13:17) Swelling levofloxacin [Levaquin] Allergy (Severe, Verified 08/20/24 13:17) Swelling Aspirin Allergy (Severe, Uncoded 08/20/24 13:17) Swelling Medication List - Last Reconciled 08/20/24 by Anthony Esteves MD albuterol sulfate 90 mcg/actuation 2 inhalations inhalation Q6H PRN 30 days budesonide-formoterol 160-4.5 mcg/actuation 2 puffs inhalation BID aueoresiir-kzcjuswb-mxyjtnztaf 160-9-4.8 mcg/actuation (Breztri Aerosphere) 2 inhalations inhalation BID 30 days calcium carbonate-vitamin D3 600 mg-5 mcg (200 unit) 1 tab PO DAILY cetirizine (Zyrtec) 10 mg PO BID PRN cholecalciferol (vitamin D3) (Vitamin D3) 50 mcg PO DAILY clopidogrel 75 mg PO QPM cyclobenzaprine 10 mg PO BID PRN empagliflozin 25 mg PO DAILY ezetimibe 10 mg PO DAILY famotidine (Pepcid) 40 mg PO BEDTIME PRN gabapentin 300 mg PO DAILY PRN loperamide (Imodium A-D) 2 mg PO BID lorazepam 0.5 mg PO BID PRN losartan 25 mg PO DAILY multivitamin 1 tab PO DAILY nitroglycerin 0.4 mg sublingual DIRECTED PRN nystatin (Nyamyc) 1 appl topical BID rosuvastatin 40 mg PO BEDTIME semaglutide (Rybelsus) 7 mg PO DAILY tiotropium bromide 2.5 mcg/actuation (Spiriva Respimat) 2 inhalations PO BID vortioxetine 10 mg PO BEDTIME HPI Comments Details: 74-year-old female patient returning 1 month following repair of an incisional hernia in the upper midline abdomen. The surgery was performed on 07/06/2024 using an 8 cm round Ventralex mesh. She was subsequently discharged to home on 07/08/2024. She denies any bleeding or discharge from the incision. Her bowels are normal as well. She does complain of some discomfort on either side of the incision but this seems to be improving. She mainly is concerned about reflux with spitting up bile especially after drinking liquids or eating food. She feels the food does not into her stomach properly. She knows she has an hiatal hernia but feels her symptoms are getting worse. [facility] Medical History History of transfusion of packed red blood cells Migraine History of placement of stent in LAD coronary artery Osteoporosis Hyperlipidemia Depression CAD (coronary artery disease) Sleep apnea On anticoagulant therapy TIA (transient ischemic attack) Myocardial infarction Obesity Diabetes Dyslipidemia History of colon cancer HTN (hypertension) Carotid stenosis, asymptomatic GERD (gastroesophageal reflux disease) Colon cancer Pre-op chest exam Lung cancer Pulmonary nodules Dyspnea COPD (chronic obstructive pulmonary disease) Pulmonary nodule Surgical History History of incisional hernia repair (07/06/24) Hx of tonsillectomy Hx of tubal ligation History of dental surgery Hx of cardiac catheterization History of lobectomy of lung Social History Household Members: None Housing: House Are you a primary healthcare market consultant to a significant other at home: No Do you presently have visiting nurse or other home services: No Patient Tobacco Use Status: Former Tobacco user Tobacco use type: Cigarette Years Smoked: 20+ Years Second Hand Smoke Exposure: No service: No Review of Systems Const All systems reviewed & are unremarkable except as noted in HPI and below Physical Exam Const General: no acute distress Nutritional Appearance: well nourished Orientation/consciousness: patient oriented x3 Resp Effort & Inspection: normal respiratory effort GI Other: Midline abdominal incision is clean, dry, and intact. No hernia noted with Valsalva maneuvers. Palpation (GI): Soft to palpation Skin Other: Warm, dry, no rash Neuro General: patient oriented x3 Results Reviewed Results Reviewed: CT abdomen and pelvis 05/13/2024: IMPRESSION: 1. No acute abnormality CT scan abdomen pelvis. 2. Status post partial right hemicolectomy. Diverticulosis sigmoid colon. No acute abnormality of bowel. 3. Moderate-sized hiatal hernia. Fleischner guidelines were followed. Electronically signed by: Rod Gomez MD 05/13/2024 05:36 PM EDT RP Assessment & Plan Assessment & Plan (1) Hiatal hernia with gastroesophageal reflux: Code(s): K44.9 - Diaphragmatic hernia without obstruction or gangrene; K21.9 - Gastro- esophageal reflux disease without esophagitis Category: Medical (2) Herniation through surgical site: Code(s): K43.2 - Incisional hernia without obstruction or gangrene Category: Medical Plan 74-year-old female patient status post repair of multiple incisional hernias in the upper abdomen with mesh. Her wounds are clean, dry, and intact with no evidence of hernia recurrence. She may resume normal activity without restriction and should follow up as needed. She reports spitting up bile with other reflux symptoms and burning sensation after eating and is noted to have a large hiatal hernia by CT. I recommended GI consultation for further evaluation and management. She expressed understanding and agrees with the plan. Orders: Referrals 2 Gastroenterology Referral K21.9 - Gastro-esophageal reflux disease without esophagitis, K44.9 - Diaphragmatic hernia without obstruction or gangrene Coding Level of Care Code Global (57566) Diagnoses Hiatal hernia with gastroesophageal reflux K44.9; K21.9 Herniation through surgical site K43.2
[2024-08-20 13:18] VITALS: BP 119/73; PULSE 95; BMI 27.8
== END 2024-08-20 13:26 | disposition home or self-care (01) ==
PROVIDERS: PCP Internal Medicine; Visit Provider Surgery
DX: K44.9 Diaphragmatic hernia without obstruction or gangrene (principal); K21.9 Gastro-esophageal reflux disease without esophagitis; K43.2 Incisional hernia without obstruction or gangrene
CPT/HCPCS: 99212

== ENCOUNTER → 2024-08-20 13:08 | Outpatient (BNVA) | payer OTHER, SELFPAY | PROVIDERS: PCP Internal Medicine; Visit Provider Surgery ==

== ENCOUNTER 2024-09-11 13:51 | Outpatient (REF) | payer MEDICARE, SELFPAY ==
--- NOTE | ~2024-09-11 | MM_ITS ---
EXAMINATION: BONE DENSITOMETRY CLINICAL INDICATION: Osteopenia. COMPARISON: This is the patient's baseline examination. TECHNIQUE: Using a [employer] DXA System (software version: 13.1) manufactured by [facility], dual-energy x-ray absorptiometry was performed of the lumbar spine and left hip. The images are of good technical quality. Summary results are attached. FINDINGS: AP SPINE L1-L4: BMD 0.783 g/cm2, Z-score -0.1, T-score -1.8, osteopenia. LEFT FEMUR, NECK: BMD 0.795 g/cm2, Z-score -0.2, T-score -1.7, osteopenia. LEFT FEMUR, TOTAL: BMD 1.020 g/cm2, Z-score 0.1, T-score -1.3, osteopenia. IDENTIFIED RISK FACTORS: Early menopause, secondary osteoporosis. HISTORY OF FRACTURE: None listed. MEDICATIONS: Calcium, vitamin D. MM/XR DEXA axial skeleton IMPRESSION: 1. DIAGNOSIS: Osteopenia based on the lowest T-score value of -1.8 in the lumbar spine applying World Health Organization criteria. 2. 10-YEAR FRACTURE RISK PREDICTION, FRAX: Major osteoporotic fracture (clinical spine, forearm, hip or shoulder) 12.2%. Hip fracture 2.8%. 3. Treatment Recommendations: NOF guidelines recommend consideration for treatment in postmenopausal women and men age 50 and older presenting with the following: -A hip or vertebral (clinical or morphometric) fracture. -T-score less than or equal to -2.5 at the femoral neck or spine after appropriate evaluation to exclude secondary causes. -Low bone mass at the hip or spine and a 10-year fracture probability by FRAX of greater than or equal to 3% for hip fracture or greater than or equal to 20% for major osteoporotic fracture based on the [place] adapted WHO algorithm. 4. Other Recommendations: All treatment decisions require clinical judgment and consideration of individual patient factors, including patient preferences, comorbidities, previous drug use, risk factors not captured in the FRAX model (e.g. frailty, falls, vitamin D deficiency, increased bone turnover, interval significant decline in bone density) and possible under or overestimation of fracture risk by FRAX. Additional medical evaluation for secondary cause of low bone mineral density may be appropriate. FUTURE SCAN RECOMMENDATION: People with diagnosed cases of osteoporosis or at high risk for fracture should have regular bone mineral density tests. For patients eligible for Medicare, routine testing is allowed once every 2 years. The testing frequency can be increased to one year for patients who have rapidly progressing disease, those who are receiving or discontinuing medical therapy to restore bone mass, or have additional risk factors. Electronically signed by: Dianne Thurman MD 09/24/2024 04:42 PM [facility]
== END 2024-09-11 13:52 | disposition home or self-care (01) ==
LOC: HO.MAMMO 13:51
PROVIDERS: PCP Internal Medicine; Visit Provider Internal Medicine
DX: M85.89 Other specified disorders of bone density and structure, multiple sites (principal)
CPT/HCPCS: 77080

== ENCOUNTER 2024-09-29 11:08 | Outpatient (AMB) | payer OTHER, SELFPAY ==
--- NOTE | 2024-09-29 11:15 | A.OFFVIS_ITS ---
Vital Signs 09/29/24 11:16 Height 5 ft 4 in Weight 162 lb 0.636 oz BMI 27.8 BP 110/62 Blood Pressure Location Rt brachial Position Sitting Pulse 95 Pulse Source Pulse Oximeter Pulse Oximetry (%) 95 Oxygen Delivery Method Room Air Intake Visit Reasons: copd Allergies gabapentin [From Neurontin] Allergy (Severe, Verified 09/29/24 11:21) Itching latex Allergy (Severe, Verified 09/29/24 11:21) Swelling levofloxacin [Levaquin] Allergy (Severe, Verified 09/29/24 11:21) Swelling Aspirin Allergy (Severe, Uncoded 09/29/24 11:21) Swelling HPI Comments Details: The patient is a 74-year-old woman known history of lung cancers status post resections in addition to COPD. Overall she is doing very well. She is staying active she denies any significant dyspnea on exertion she has been using the inhalers as prescribed. Her last CT scan of the chest to assess her pulmonary nodules was back in March 2019 to follow-up a new pulmonary nodule. The appeared to be stable. The patient has had waxing waning pulmonary nodules. At this point the patient should have another CT scan of the chest in March 2020. Otherwise patient is without any other complaints at this time. 03/25/2020 the patient is here for pulmonary follow-up visit. Overall she is doing well from a respiratory status. She does have some shortness of breath with activity, mild in severity. Does have cough intermittently. She does take respiratory medications without any significant issue. We did review her CT scan of the chest from 2019, 2018 and also 2018. She has had multiple pulmonary nodules and she has had a history of cancer. Most recent CT scan of the chest demonstrates she is a slight change in the consistency of the right upper lobe nodular density. It appears to be little more solid and slightly more elongated. Again this may be just away was caught or the resolution. Therefore, at this point we will repeat the CT scan in 6 months. 09/29/2020 the patient is here for pulmonary follow-up visit. Overall she does complaint of dyspnea on exertion. Moderate severity. Does not appear to be getting any better. She has gained some weight which may be contributing. We did look at her most recent CT scan of the chest that she had a [facility]. I personally reviewed the CT scan with the patient.. I do not see any concerning nodular densities. At this point we can go back to the once a year CT scans. December 02, 2020 the patient is here for pulmonary follow-up visit. Since we last spoke she was diagnosed with colon cancer and screening colonoscopy. She was relatively asymptomatic. She now went to [facility] and now it will be undergoing surgery after they do a full evaluation. From a respiratory status she is doing okay. Does have some dyspnea on exertion [id number] severity. Does get better with rest. Her last CT scan of the chest was reassuring with stable pulmonary nodules without any evidence of any metastatic disease that we can see at this point to the lungs. The patient is medically optimized from a respiratory status and is doing well from a pulmonary standpoint and will be able to consent for surgery for both anesthesia and the surgical intervention that she needs to have in [facility]. The patient understands the risks which include atelectasis, hypoxia, prolonged mechanical ventilation and pneumonia. The risks at this point her minimal for her and she is able to have surgery from a pulmonary standpoint. 06/06/2021 the patient is here for a pulmonary follow-up visit. Since we last spoke the patient did undergo surgery for an early stage colon cancer. She was able to get it fully resected. she did not require chemotherapy which is reassuring. She did have a repeat CT [place] of [place] [facility] no obvious concerns noted. However, need to compared to the CT scan from [facility] to be sure completely. For the last few weeks she has noticed increasing shortness of breath with exertion moderate severity. She actually felt well after surgery. She has been using her Symbicort but typically just once a day. She needs to maximize at this time to twice a day and I did recommend she start Spiriva in conjunction to optimize his respiratory medication therapy. 12/05/2021 the patient is here for pulmonary follow-up visit. Overall the patient has been well from a respiratory status. She was concerned because her [facility] laboratory came back elevated. Therefore she underwent a PET/ CT scan at [facility] They could not find any evidence of any cancer. she is now due for colonoscopy. From a pulmonary standpoint her CT scans have been stable. She is following closely with serial CT scans. She is complaining of chest congestion mucus buildup and raspiness of the voice. She does comment also that she has developed increased reflux symptoms. I do believe her reflux symptoms are aggravating her larynx and resulting in the raspiness and mucus buildup. 06/05/2022 the patient is here for a pulmonary follow-up visit. Overall she is doing well. She continues use her respiratory therapy. She does not see any significant improvement when she does use the inhalers I did advise again try to cut down a little bit in the he continues to do about the same. She does have dyspnea on exertion. She also complains of reflux disease. She does take omeprazole in the morning and also Pepcid at nighttime. He seems to be helping. She does have episodes where she loses the ability to breathe brief few seconds. This sound like laryngospasm. Explained to her that the triggers could be the cause including underlying laryngeal penetration for reflux and/or postnasal drip resulting living will spasms. She should be sleeping elevated and wanting the reflux diet. The patient will follow up in [facility] for the abnormal CT will. I believe she has been undergo a CT scan of the chest available. However she will be following up with them at the end of the year. She will not sure that I get a copy of the CT scan of the chest will for week follow-up with pulmonary nodules. Once the patient is without any other complaints. 12/06/2022 the patient is here for a pulmonary follow-up visit. Overall she is doing well until several weeks ago when she started developing a worsening productive cough. Moderate in severity. Initially was productive with yellow sputum, but now is non productive. Denies fever or chills. She continues use her respiratory therapy. She does not see any significant improvement when she does use the inhalers. On exam, she does have some wheezing. I will prescribe a course of prednisone. 03/07/2023 the patient is here for a pulmonary follow-up visit. She complains of worsening shortness of breath with minimal activity. She has been struggling with her breathing. Moderate severity. She took a few days of the prednisone during the last visit because of the exacerbation but she stop the because her sugars were elevated. She continues on a respiratory medicine. Is only partially helpful. On exam she actually has relatively normal breath sounds. No significant rhonchi or wheezing noted. I do believe the patient has gained weight and she is more deconditioning. We did talk about getting pulmonary function studies and starting pulmonary rehabilitation. The patient will go ahead and proceed with this process. As far as the other alternative medications we can consider Daliresp as a good option to minimize the steroid use specially since she cannot take the prednisone because of the elevated blood sugars. Her last CT scan of the chest was back in August. Otherwise patient is doing well. Likely will need follow-up imaging studies the end of this year or next year. We will discuss that further during the next follow-up in the fall. 05/06/2023 the patient is here for a pulmonary follow-up visit. Overall the patient is doing well. She ended up having her pulmonary rehabilitation at the [facility] through a cancer survivorship program. This appears to be working much better. She has been feeling better less shortness of breath. She continues her respiratory therapy. We did review her pulmonary function studies demonstrating only a mild obstructive process. She does have moderate diffusion impairment but she has had multiple surgeries. Overall very reassuring PFTs. She is that a follow-up in [facility] the next few months. She should have a CT scan of chest August 2024 in [facility]. Otherwise she will continue with current respiratory therapy and will follow-up in 6 months time. If any issues arise the patient will call for further evaluation. 12/23/2023 the patient is here for a pulmonary follow-up visit. Overall the patient has been doing well from a respiratory status. She has been following closely with [facility]. She has had a history of lung cancer x2 and more recently colon cancer. She has been getting CT scans of the abdomen and chest every 6 months in [facility]. The patient is concerned because now she is going to change insurance companies and uncovered enough are any more. She is going to need a local oncologist to continue monitoring closely her cancer history. She has been cancer free now for about 3 years. I will refer her to a local hemo tolerating oncology's specialist. In the meantime the patient continues use respiratory therapy with good effect. Although, the appeared to be very expensive specially the Spiri va. Will go ahead and switch her over to Breztri to simplify her regimen. No need for prednisone. She does not use a rescue inhaler often. 06/25/2024 the patient is here for a pulmonary follow-up visit. The patient overall has been doing okay. She does complaint of dyspnea on exertion. [id number] severity. Seems like her symptoms got worse when she started developing the abdominal discomfort. She went to the ER found to have a ventral hernia. She also has a hiatal hernia that causes her to have some GI symptoms including dyspepsia and epigastric discomfort. Still though she was evaluated by General surgery and felt that she needed surgery for the significant ventral hernia. She did have spirometry in the office because of the shortness of breath and she appears to have a mild obstruction consistent with mild COPD. In addition to that she has a significant amount of small airways disease. Therefore will go ahead and optimize her respiratory therapy by having her take the Symbicort twice a day 2 puffs and also start Spiriva. Hopefully by providing her maximum bronchodilation effect she is going to feel better. From a pulmonary standpoint the patient may be able to proceed with surgery. She does have moderate risk for perioperative pulmonary complications which includes bronchospasms, hypoxia, atelectasis, pneumonia. At this point she is medically optimized from pulmonary standpoint may be able to proceed with anesthesia and surgery. The patient will follow-up in 3 months will reassess. 09/29/2024 the patient is here for pulmonary follow-up visit. Overall she is doing well. She did have her abdominal surgery for hernia repair and it did go well. She did not have any respiratory issues. She continues use her respiratory medications as prescribed. No recent exacerbations which is reassuring she did finally see Oncology. She is going to follow-up with them soon. She should be up for a CT scan of the chest. Await for her to be seen by Oncology to see what they want to do. Otherwise will request for sometime in the spring. The patient did have a bad fall which she hurt her coccyx bone. She has a hard time seeing him. Otherwise patient is without any other complaints. Will go ahead and follow-up with her in 4-6 months. I which time if the patient has not had a CT scan will make sure to have 1 done. [facility] Medical History History of transfusion of packed red blood cells Migraine History of placement of stent in LAD coronary artery Osteoporosis Hyperlipidemia Depression CAD (coronary artery disease) Sleep apnea On anticoagulant therapy TIA (transient ischemic attack) Myocardial infarction Obesity Diabetes Dyslipidemia History of colon cancer HTN (hypertension) Carotid stenosis, asymptomatic GERD (gastroesophageal reflux disease) Colon cancer Pre-op chest exam Lung cancer Pulmonary nodules Dyspnea COPD (chronic obstructive pulmonary disease) Pulmonary nodule Surgical History History of incisional hernia repair (07/06/24) Hx of tonsillectomy Hx of tubal ligation History of dental surgery Hx of cardiac catheterization History of lobectomy of lung Social History Household Members: None Housing: House Are you a primary home care scheduler to a significant other at home: No Do you presently have visiting nurse or other home services: No Patient Tobacco Use Status: Former Tobacco user Tobacco use type: Cigarette Years Smoked: 20+ Years Second Hand Smoke Exposure: No service: No Review of Systems Const Denies night sweats ENT Denies change in voice, Denies lip swelling, Denies mouth pain, Reports nasal congestion, Reports nasal discharge and Denies tongue swelling Card Denies chest pain, Denies dyspnea and Reports dyspnea on exertion Resp Reports cough, Denies dyspnea and Reports dyspnea on exertion GI Reports as per HPI, Reports abdominal pain and Reports dyspepsia Musc Reports as per HPI Neuro Denies Neuro-related abnormal movements Psych Denies no additional complaints Hammad/Lymph Denies easy bleeding and Denies lymphadenopathy Aller/Immun Denies lip swelling and Denies tongue swelling Physical Exam Vital Signs: Last Vital Signs Pulse 95 09/29/24 11:16 BP 110/62 09/29/24 11:16 Pulse Ox 95 09/29/24 11:16 Oxygen Delivery Method Room Air 09/29/24 11:16 BMI result Body Mass Index 27.8 Const General: alert HEENT General nose exam: Abnormal external nose present and Nasal discharge present Eyes Pupils: Equal, round and reactive pupils present Neck Neck: Yes normal visual inspection, Yes full ROM and Yes no lymphadenopathy Chest Chest palpation & inspection: normal inspection of the chest Resp Effort & Inspection: normal respiratory effort Auscultation: no wheezes and diminished lung sounds Cardio Rate: regular rate Rhythm: regular rhythm Heart sounds: S1 normal heart sound present and S2 normal heart sound present GI Palpation (GI): Soft to palpation and nontender Auscultation: normal bowel sounds General: Yes no CVA tenderness Back/Spine/Pelvis Back: no CVA tenderness Skin General skin exam: rashes and/or lesions noted Neuro Cranial nerves: Yes Equal, round and reactive pupils present Assessment & Plan Assessment & Plan (1) COPD (chronic obstructive pulmonary disease): Code(s): J44.9 - Chronic obstructive pulmonary disease, unspecified Category: Medical Qualifiers: COPD type: COPD with acute exacerbation Qualified Code(s): J44.1 - Chronic obstructive pulmonary disease with (acute) exacerbation (2) Pulmonary nodules: Code(s): R91.8 - Other nonspecific abnormal finding of lung field Category: Medical (3) Dyspnea: Comment: Likely multifactorial. Does have ongoing COPD in addition to multiple lung resections. Code(s): R06.00 - Dyspnea, unspecified Category: Medical Qualifiers: Dyspnea type: dyspnea on exertion Qualified Code(s): R06.00 - Dyspnea, unspecified (4) Pulmonary nodule: Code(s): R91.1 - Solitary pulmonary nodule Category: Medical (5) GERD (gastroesophageal reflux disease): Code(s): K21.9 - Gastro-esophageal reflux disease without esophagitis Category: Medical Qualifiers: Esophagitis presence: without esophagitis Qualified Code(s): K21.9 - Gastro-esophageal reflux disease without esophagitis (6) Coccyx pain: Comment: due to fall Code(s): M53.3 - Sacrococcygeal disorders, not elsewhere classified Category: Medical Plan Continue Symbicort 2 puff BID continue Spiriva 2 inhations daily reflux diet Continue PPI cont Pepcid at night pain meds, need to get evaluated if persistent F/U with oncology F/U 6 months Medications: New acetaminophen-codeine 300-30 mg 1 tab PO BID PRN 15 tabs 0RF pain 10 days Coding Level of Care Code Est Pt Level 4 (59077) Complex EM visit Add On G2211 Diagnoses Chronic obstructive pulmonary disease with acute exacerbation J44.1 COPD type: COPD with acute exacerbation Pulmonary nodules R91.8 Dyspnea on exertion R06.00 Dyspnea type: dyspnea on exertion Pulmonary nodule R91.1 Gastroesophageal reflux disease without esophagitis K21.9 Esophagitis presence: without esophagitis Coccyx pain M53.3 Time Spent (min) 17
[2024-09-29 11:16] VITALS: BP 110/62; PULSE 95; O2SAT 95; BMI 27.8
== END 2024-09-29 11:38 | disposition home or self-care (01) ==
PROVIDERS: PCP Internal Medicine; Visit Provider Hospitalist
DX: J44.1 Chronic obstructive pulmonary disease with (acute) exacerbation (principal); R91.8 Other nonspecific abnormal finding of lung field; R06.00 Dyspnea, unspecified; R91.1 Solitary pulmonary nodule; K21.9 Gastro-esophageal reflux disease without esophagitis; M53.3 Sacrococcygeal disorders, not elsewhere classified
CPT/HCPCS: 99214

== ENCOUNTER 2024-11-10 13:52 | Outpatient (AMB) | payer OTHER, SELFPAY ==
[2024-11-10 14:01] VITALS: BP 112/68; PULSE 82; O2SAT 98; BMI 27.2
--- NOTE | 2024-11-10 14:01 | A.OFFVIS_ITS ---
Vital Signs 11/10/24 14:01 Height 5 ft 4 in Weight 158 lb 11.725 oz BMI 27.2 BP 112/68 Blood Pressure Location Rt brachial Position Sitting Pulse 82 Pulse Source Pulse Oximeter Pulse Oximetry (%) 98 Oxygen Delivery Method Room Air Intake Visit Reasons: T2DM Intake Note: NEW Patient presents today to establish treatment for Type 2 Diabetes Mellitus: Last Diabetic eye exam was on: Within the year Last Podiatry exam was on: Patient does not see a Edging Catcher Most recent HbA1c: 8.8%, 11/10/2025 Random Glucose- 158 mg/dL, Today Seed Yeast Operator Required: No Accompanied by: Self / Same As Patient Allergies gabapentin [From Neurontin] Allergy (Severe, Verified 11/10/24 14:08) Itching latex Allergy (Severe, Verified 11/10/24 14:08) Swelling levofloxacin [Levaquin] Allergy (Severe, Verified 11/10/24 14:08) Swelling Aspirin Allergy (Severe, Uncoded 11/10/24 14:08) Swelling HPI Comments Details: This is a 74-year-old female with a past medical history of type 2 diabetes, CHF, CAD, hiatal hernia with GERD, lung cancer, stage II adenocarcinoma of the colon, carotid artery stenosis, COPD and pulmonary nodules presenting for diabetic management. This is her initial consult. She was diagnosed with diabetes 3-4 years ago. Her mother had type 2 diabetes. Hemoglobin A1c 8.9% 07/11/2024. Today it is 8.8%. She does not have her glucometer with her today. Patient checks her blood sugar in the morning before eating, and the readings are between 180 and 200. Occasionally it will be 160. Current medication regimen: Rybelsus 7 mg and Jardiance 25 mg Patient says that sometimes she has abdominal pain for a couple of hours after she takes Rybelsus. This usually happens if she is laying in bed rather than getting up after she takes the medication. She denies nausea or vomiting on the medicine. Patient has never tried metformin because she is concerned about the potential side effects. Compliance issues: None Diet: Breakfast-whole grain toast and peanut butter (1 slice usually), coffee with half and half Lunch- left overs, yogurt with walnuts, drinks water or a decaf coffee Dinner- always a protein and vegetable and starch or carbs, water, eats salad a lot Snacks/desserts: peanut butter crackers, fruits Hypoglycemia symptoms: none Hyperglycemia symptoms: none Eye exam: [facility], no complications per patient Microvascular complications: neuropathy, nephropathy (renal insufficiency) Macrovascular complications: CAD and PAD (Dr. Freitas) Hypertension: treated with losartan 25 mg Hyperlipidemia: treated with rosuvastatin 40 mg, Zetia 10 mg LDL at goal <100. ROS: Constitutional: No unexplained weight loss, fever, chills, fatigue or night sweats. Eyes: No vision changes Respiratory: No shortness of breath Cardiovascular: No chest pain, chest pressure or chest discomfort. No palpitations or pedal edema. Gastrointestinal: No nausea, vomiting, diarrhea or blood in stools. See HPI. Neurologic: No headache, dizziness, syncope, unilateral weakness, ataxia, numbness or tingling in the extremities. Endocrine: No cold or heat intolerance. No polyuria or polydipsia. Physical exam: Constitutional: Alert, in no distress. Neck: Supple, Full range of motion. No lymphadenopathy. No palpable thyroid masses. Respiratory: Clear to auscultation. Cardiovascular: S1 S2 regular. No murmurs. Gastrointestinal: Abdomen soft, non-tender, non-distended. Normal bowel sounds. No palpable masses. Right foot: Warm and well perfused. No clubbing, cyanosis or edema. Palpable DP pulse. Severely decreased vibratory sensation. Intact sensation to monofilamen t. No open wounds. Left foot: Warm and well perfused. No clubbing, cyanosis or edema. Palpable DP pulse. Severely decreased vibratory sensation. Intact sensation to monofilament. No open wounds. [facility] Medical History (Updated 11/10/24 @ 15:47 by RALPH Ng) CHF (congestive heart failure) Renal insufficiency Peripheral sensory neuropathy due to type 2 diabetes mellitus Type II diabetes mellitus History of transfusion of packed red blood cells Migraine History of placement of stent in LAD coronary artery Osteoporosis Hyperlipidemia Depression CAD (coronary artery disease) Sleep apnea On anticoagulant therapy TIA (transient ischemic attack) Myocardial infarction Obesity Diabetes Dyslipidemia History of colon cancer HTN (hypertension) Carotid stenosis, asymptomatic GERD (gastroesophageal reflux disease) Colon cancer Pre-op chest exam Lung cancer Pulmonary nodules Dyspnea COPD (chronic obstructive pulmonary disease) Pulmonary nodule Surgical History History of incisional hernia repair (07/06/24) Hx of tonsillectomy Hx of tubal ligation History of dental surgery Hx of cardiac catheterization History of lobectomy of lung Social History Household Members: None Housing: House Are you a primary doggy daycare activities director to a significant other at home: No Do you presently have visiting nurse or other home services: No Patient Tobacco Use Status: Former Tobacco user Tobacco use type: Cigarette Years Smoked: 20+ Years Second Hand Smoke Exposure: No service: No Physical Exam Vital Signs: Last Vital Signs Pulse 82 11/10/24 14:01 BP 112/68 11/10/24 14:01 Pulse Ox 98 11/10/24 14:01 Oxygen Delivery Method Room Air 11/10/24 14:01 BMI result Body Mass Index 27.2 Results AMB Hemoglobin A1c AMB Hemoglobin A1c 8.8 % Last Edit by SHIRA Jay on 11/10/24 14:29 Results Reviewed Results Reviewed: Laboratory Last Values Glucose (Clinic) 158 mg/dL (60-115) H 11/10/24 14:08 Laboratory Tests 05/06/24 05/13/24 23:31 11:56 Plt Count 241 Creatinine 1.13 1.10 Estimated GFR 47 49 AST 17 ALT 21 Assessment & Plan Assessment & Plan (1) Type II diabetes mellitus: Code(s): E11.9 - Type 2 diabetes mellitus without complications Category: Medical Qualifiers: Diabetes mellitus senior living insulin use: without senior living use Diabetes mellitus complication status: with kidney complications Diabetes mellitus complication detail: with nephropathy Qualified Code(s): E11.21 - Type 2 diabetes mellitus with diabetic nephropathy (2) Peripheral sensory neuropathy due to type 2 diabetes mellitus: Code(s): E11.42 - Type 2 diabetes mellitus with diabetic polyneuropathy Category: Medical (3) Renal insufficiency: Code(s): N28.9 - Disorder of kidney and ureter, unspecified Category: Medical Plan In summary this is a 74-year-old female with uncontrolled type 2 diabetes with micro and macrovascular complications. Discussed pathophysiology of Type II Diabetes Mellitus with the patient in detail.? I explained the buttermaker continuous churn risks and complications associated with uncontrolled diabetes including nephropathy, neuropathy, peripheral vascular disease, retinopathy, increased risk of heart disease and stroke.? Discussed lifestyle modification with the patient. Diabetic diet reviewed. I recommended she meet with a dietitian. She declines this for now because she does not think she will be compliant with the recommendations. I sent the dexcom continuous glucose monitor to the pharmacy. This will require the prior authorization (usually takes a couple weeks). Insurance may not cover this because she is not on insulin. She was instructed to call the office if her insurance covers it so that we can set up a visit with the clinical educator. Our plan it to stop Rybelsus and switch to Mounjaro 2.5 mg once weekly. Mounjaro will also probably need a prior authorization. We discussed the need to titrate this medication based on tolerability and efficacy. Continue Jardiance 25 mg daily. If you experience low blood sugar <70, treat this by eating a chewable fruit candy like skittles or jelly beans (about 8 pieces), 4 ounces (1/2 cup) of fruit juice or soda (not diet), 1 tablespoon of honey or 4 glucose tablets. If your blood sugar is under 50, take double the amount of one of the above. Recheck your blood sugar in [address] if you do not have a reliable way to check your blood sugar or if you have symptoms of low sugar. Written instructions were sent to the patient. She is going to have her blood tests done at [facility]. Written orders were given to the patient. Follow up in 4 weeks for type 2 diabetes. Orders: Orders AMB Hemoglobin A1c Today E11.9 - Type 2 diabetes mellitus without complications Lipid Panel Today E11.9 - Type 2 diabetes mellitus without complications, E78.5 - Hyperlipidemia, unspecified TSH reflex Free T4 Today E11.9 - Type 2 diabetes mellitus without complications Microalbumin, Random (w Creat) Today E11.9 - Type 2 diabetes mellitus without complications Comprehensive Met. Panel Today E11.9 - Type 2 diabetes mellitus without complications Medications: New blood-glucose meter,continuous (Dexcom G7 [employer] Inspectors) As directed to monitor blood continuously 1 ea 0RF E11.9 - Type 2 diabetes mellitus without complications glucose (Dex4 Glucose) until blood sugar is >70 16 grams (4 x 4 gram) PO Q15M PRN 10 tabs 3RF hypoglycemia (hipoglucemia) tirzepatide (Mounjaro) for 4 weeks 2.5 mg (0.5 mL) subcut QWEEK 2 mL 0RF blood-glucose sensor (Dexcom G7 Sensor device) apply new sensor every 10 days as directed 3 ea 11RF E11.9 - Type 2 diabetes mellitus without complications Patient Instructions: I sent the dexcom continuous glucose monitor to the pharmacy. This will require the prior authorization (usually takes a couple weeks). Insurance may not cover this because you are not on insulin. If insurance covers it, and you receive the prescription, call the office and we will set up an appointment to place the sensor and set it up. Our plan it to stop Rybelsus and switch to Mounjaro 2.5 mg once weekly. Mounjaro will also probably need a prior authorization. Continue Jardiance 25 mg daily. If you experience low blood sugar <70), treat this by eating a chewable fruit candy like skittles or jelly beans (about 8 pieces), 4 ounces (1/2 cup) of fruit juice or soda (not diet), 1 tablespoon of honey or 4 glucose tablets. If your blood sugar is under 50, take double the amount of one of the above. Recheck your blood sugar in [address] if you do not have a reliable way to check your blood sugar or if you have symptoms of low sugar. Target range for blood sugars Fasting 70-140 Blood sugar after eating - under 180 Bring glucometer to next appointment Coding Level of Care Code New Pt Level 5 (60662) Complex EM visit Add On G2211 Diagnoses Type 2 diabetes mellitus with diabetic nephropathy, without long-term current use of insulin E11.21 Diabetes mellitus senior living insulin use: without senior living use Diabetes mellitus complication status: with kidney complications Diabetes mellitus complication detail: with nephropathy Peripheral sensory neuropathy due to type 2 diabetes mellitus E11.42 Renal insufficiency N28.9 Time Spent (min) 70 Comment Chart review, direct patient care, completing documentation
[2024-11-10 14:13] LABS: Glucose, Whole Blood 158 mg/dL (60-115)
--- OUTSIDE RECORDS SUMMARY | 2024-11-10 17:20 | XMS_ITS | Clinical Summary ---
Author Organization [facility] Address [address] [place] [address] Care Team Providers Care Occupational Therapist Per Diem Name Role Phone Jung Carranza MD Primary Care Provider [phone]- [phone] Allergies Active Allergy Reactions Criticality Noted Date Comments Aspirin 07/01/2024 Medications Medication Sig Dispensed Refills Start Date End Date Status clopidogrel (PLAVIX) 75 MG tablet TAKE ONE TABLET BY MOUTH EVERY DAY 0 04/12/2024 Active Jardiance 25 MG TABS Take 1 tablet by mouth daily. 0 05/30/2024 Active ezetimibe (ZETIA) tablet 10 mg 0 05/04/2024 Active LORazepam (ATIVAN) 0.5 MG tablet Take 1 tablet (0.5 mg total) by mouth 2 (two) times a day. 0 06/13/2024 Active losartan (COZAAR) tablet 25 mg Take 1 tablet (25 mg total) by mouth daily. 0 06/23/2024 Active rosuvastatin (CRESTOR) tablet 40 mg 0 06/30/2024 Active Active Problems Problem Noted Date Diagnosed Date Malignant neoplasm of ascending colon 07/01/2024 Malignant neoplasm of upper lobe of right lung 1 Social History Tobacco Use Types Packs/Day Years Used Date Smoking Tobacco: Former Cigarettes Smokeless Tobacco: Never Tobacco Cessation:Counseling Given: Not Answered Alcohol Use Standard Drinks/Week Comments Not Currently 0 (1 standard drink = 0.6 oz pur e alcohol) Sex and Gender Information Value Date Recorded Sex Assigned at Female 02/12/2024 2:35 PM EDT Gender Identity Not on file Sexual Orientation Not on file Job Start Date Occupation Industry Not on file Not on file Not on file Last Filed Vital Signs Vital Sign Reading Time Taken Comments Blood Pressure 91/64 07/01/2024 1:49 PM EDT Pulse 88 07/01/2024 1:49 PM EDT Temperature 36.9 ??C (98.4 ??F) 07/01/2024 1:49 PM ED T Respiratory Rate - - Oxygen Saturation 96% 07/01/2024 1:49 PM EDT Inhaled Oxygen Concentration - - Weight 75.2 kg (165 lb 12.8 oz) 07/01/2024 1:49 PM EDT Height 162.6 cm (5' 4 ) 07/01/2024 1:49 PM EDT Body Mass Index 28.46 07/01/2024 1:49 PM EDT Plan of Treatment Health Maintenance Due Date Last Done Comments Hepatitis C Screening 1950 Depression Screening 1962 Preventative Health Evaluation 02/29/1968 Shingrix-Zoster Vaccine (1 of 2) 1969 Colon Cancer Screening (Colonoscopy) 1995 Breast Cancer Screening (Mammogram) 02/29/2000 DTap / Tdap / Td (1 - Tdap) 09/17/2005 09/16/2005 Fall Risk Assessment 2015 Osteoporosis Screening (DEXA Scan) 2015 COVID-19 Vaccine ( season) 2024 02/06/2022, 08/26/2021, 12/30/2020, Additional history exists Influenza Vaccine (#1) 2024 2, 06/27/2021, 06/16/2021, Additional history exists RSV Adult > 60+ Yrs or (1 - 1-dose 75+ series) 2025 Pneumococcal Vaccine Completed 07/01/2019, 07/14/20 18 Hepatitis B Vaccines Aged Out No long er eligible based on patient's age to complete this topic RSV Ped < 20 months Aged Out No longe r eligible based on patient's age to complete this topic Care Teams Occupational Therapist Per Diem Relationship Specialty Start Date End Date Jung Carranza MD [address] [place] [address] PCP - General Internal Medicine 02/12/24
--- OUTSIDE RECORDS SUMMARY | 2024-11-10 17:20 | XMS_ITS | Encounter Summary ---
Author Organization [facility] Address [address] [place] [address] Care Team Providers Care Metal Drill Press Operator Name Role Phone Jung Carranza MD Primary Care Provider +1- [phone] Reason for Referral * Imaging (Routine) - Authorized Specialty Diagnoses / Procedures Referred By Contac t Referred To Contact Radiology Diagnoses Pulmonary nodules Overlapping malignant neoplasm of colon (CMS/HCC) Procedures CT Chest/Abdomen/Pelvis w Contrast Carmen Felix MD [address] [place] [phone] Phone: tel: fax: [address] [address] Phone: tel: Referral ID Status Reason Start Date Expiration Date V isits Requested Visits Authorized [id number] Authorized 11/06/2024 11/06/2025 1 1 Encounter Details Date Type Department Care Team (Late st Contact Info) Description 11/05/2024 Telephone [facility] Hematology Oncology [address] [place] [phone] Carmen Felix MD [address] [place] [phone] Social History Tobacco Use Types Packs/Day Years Used Date Smoking Tobacco: Former Cigarettes Smokeless Tobacco: Never Alcohol Use Standard Drinks/Week Comments Not Currently 0 (1 standard drink = 0.6 oz pur e alcohol) Comments Unknown Sex and Gender Information Value Date Recorded Sex Assigned at Female 10/02/2024 4:40 PM EST Legal Sex Female 2:38 AM EST Gender Identity Female 10/02/2024 4:40 PM EST Sexual Orientation Not on file documented as of this encounter Progress Notes * Carmen Felix MD - 11/06/2024 11:24 AM EST I ordered CT CAP with contrast * Jackie Lujan MA - 11/06/2024 11:00 AM EST I spoke with Corin and she is concerned and upset that she has not heard from anyone regarding scheduling of colonoscopy. She was referred to , GI, seen 10/29/24, but she states she gets all her stuff done by . She is requesting colonoscopy and scans. I do see an order for a CT Scan of abdomen/pelvis placed by but Corin usually gets CT CAPdone. , can you place these orders? She would like to cancel the one ordered. Patients next FOV is scheduled for 01/13/25. * Serina Reed - 11/05/2024 2:28 PM EST When calling patient to reschedule December appt, she mentioned she was supposed to hear from someone in regards to some testing including a colonoscopy. Patient is checking status of this. documented in this encounter Plan of Treatment Upcoming Encounters Date Type Department Care Team (Late st Contact Info) Description 11/27/2024 2:45 PM EDT Appointment [facility] CT Scan [address] [place] [phone] 12/17/2024 9:30 AM EDT Appointment [facility] Endoscopy [address] [place] [phone] Valente Camarena MD [address] [address] 01/13/2025 2:15 PM EDT Office Visit [facility] Hematology Oncology [address] [place] [phone] Carmen Felix MD [address] [place] [phone] Scheduled Orders Name Type Priority Associated Diagnoses Orde r Schedule CT Chest/Abdomen/Pelvis w Contrast Imaging Routine Pulmonary nodules Overlapping malignant neoplasm of colon (CMS/HCC) Expected: 11/13/2024, Expires: 11/06/2025 documented as of this encounter Visit Diagnoses Diagnosis Pulmonary nodules- Primary Other diseases of lung, not elsewhere classified Overlapping malignant neoplasm of colon (CMS/HCC) documented in this encounter Care Teams Metal Drill Press Operator Relationship Specialty Start Date End Date Jung Carranza MD [address] [place] [address] Rd [address] [place], [place] PCP - General Internal Medicine 12/08/18 documented as of this encounter
--- OUTSIDE RECORDS SUMMARY | 2024-11-10 17:20 | XMS_ITS | Clinical Summary ---
Author Organization [facility] Address [address] [place] [address] Phone Care Team Providers Care Agricultural Research Engineer Name Role Phone Jung Carranza MD Primary Care Provider [phone] Allergies Active Allergy Reactions Criticality Noted Date Comments Aspirin 08/12/2017 Latex 08/12/2017 Levofloxacin 08/12/2017 Medications calcium carbonate/chaparro min D3 (CALCIUM + D ORAL) Take by mouth. Active clopidogreL (PLAVIX) 75 mg tablet Take 1 tablet (75 mg total) by mouth 1 (one) time each day. 4 Active LORazepam (ATIVAN) 0.5 mg tablet - Route: Take 0.5 mg by mouth every 6 hours as needed. - Oral 4 Active losartan (COZAAR) 50 mg tablet Take 50 mg by mouth daily. Active eszopiclone (LUNESTA) 3 mg tablet Take 3 mg by mouth at bedtime as needed. Active multivitamin (MULTIPLE VITAMINS ORAL) Take by mouth. Active albuterol HFA (PROAIR HFA ; PROVENTIL HFA ; VENTOLIN HFA) 90 mcg/actuation inhaler Inhale 2 puffs by mouth every 4 (four) hours if needed. Active ezetimibe (ZETIA) 10 mg tablet Route: Take 10 mg by mouth daily. - Oral 4 Active cetirizine (ZyrTEC) 10 mg capsule Take by mouth. Active Jardiance 25 mg tablet Take 1 tablet (25 mg total) by mouth 1 (one) time each day. Active Rybelsus 7 mg tablet Take 1 tablet (7 mg total) by mouth 1 (one) time each day before breakfast. 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 60 tablet 6 5 Active fluticasone-um eclidinium-fortino anterol (Trelegy Ellipta) 100-62.5-25 mcg inhaler Inhale 1 Puff into the lungs daily. 9 10/29/19 25 Discontinued rosuvastatin (CRESTOR) 40 mg tablet - Route: Take 40 mg by mouth daily. - Oral 4 10/29/19 25 Discontinued metoprolol tartrate (LOPRESSOR) 25 mg tablet Take 25 mg by mouth 2 times daily. 10/29/19 25 Discontinued omeprazole (PriLOSEC) [address] capsule Take 20 mg by mouth daily. 10/29/19 25 Discontinued oxyCODONE (ROXICODONE) 5 mg immediate release tablet Take 1 tablet (5 mg total) by mouth every 8 (eight) hours if needed for severe pain. Max Daily Amount: 15 mg 9 tablet 5 10/29/19 25 Discontinued Active Problems Problem Noted Date Diagnosed Date Asthma-COPD overlap syndrome 11/06/2017 COPD (chronic obstructive pulmonary disease) Gastroesophageal reflux 11/06/2017 Hiatal hernia 11/06/2017 Hyperlipidemia 11/06/2017 Pulmonary nodules 11/06/2017 Encounters Date Type Department Care Team Description 11/05/[address] [facility] Hematology Oncology [address] [place] [address] Carmen Rodriguez MD 10/29/2024 1:20 PM EST Consult Gastroenterology - [place] 175 [facility] [address] [place] [address] Thomas Baron PA Gastroesophageal reflux disease without esophagitis (Primary Dx); H/O: lung cancer; H/O malignant neoplasm of colon; History of acute anterior wall myocardial infarction; Diabetes 1.5, managed as type 2 (CMS/HCC); Hernia of abdominal wall; Epigastric pressure; Hiatal hernia 10/02/2024 3:57 PM EST - 10/02/2024 5:[address] [facility] Emergency [address] [place] [address] Contusion of coccyx, initial encounter (Primary Dx) Discharge Disposition: Home or Self Care from Last 3 Months Immunizations Name Administration Dates Next Due [employer] (ages 12 & older) MENG S-CoV-2 COVID-19, mRNA, LNP-S, nj-sucrose, preservative free 02/06/2022 Pfizer SARS-CoV-2 COVID-19, mRNA, LNP-S, preservative free 08/26/2021,12/30/2020,12/06/2020 Pneumococcal conjugate 13 va lent (Prevnar 13, PCV13) 2mo and older 07/14/2018 Surgical History Surgery Date Site/Laterality Comments OTHER SURGICAL HISTORY PROCEDURE: ---- OTHER ----; COMMENT: lung resection for cancer x2 COLON SURGERY PROCEDURE:COLON SURGERY LUNG SURGERY PROCEDURE:LUNG SURGERY Medical History Medical History Date Comments Asthma 11/06/2017 DX:Asthma Asthma-COPD overlap syndrome (CMS/HCC) 11/06/2017 DX:Asthma-COPD overlap syndrome (HCC) COPD (chronic obstructive pu lmonary disease) (CMS/HCC) 11/06/2017 DX:COPD (chronic obstructive pulmonary disease) (HCC) Gastroesophageal reflux 11/06/2017 DX:Gastr oesophageal reflux Hiatal hernia 11/06/2017 DX:Hiatal hernia History of lung cancer 11/06/2017 DX:Histor y of lung cancer; COMMENT: X2, s/p resection Hyperlipidemia 11/06/2017 DX:Hyperlipidemi a Pulmonary nodules 11/06/2017 DX:Pulmonary n odules Lung cancer (CMS/HCC) DX:Lung ca ncer (HCC) COPD (chronic obstructive pu lmonary disease) (CMS/HCC) DX:COPD (chronic obstructive pulmonary disease) (HCC) GERD (gastroesophageal reflux disease) DX:GERD (gastroesophageal reflux disease) Colon cancer (CMS/HCC) DX:Colon cancer (HCC) Diabetes mellitus (CMS/HCC) DX:D iabetes mellitus (HCC) Social History Tobacco Use Types Packs/Day Years [...] PM EST Sexual Orientation Not on file Obstetrics History Last Filed Vital Signs Vital Sign Reading Time Taken Comments Blood Pressure 108/62 10/29/2024 1:25 PM EST Pulse 87 10/29/2024 1:25 PM EST Temperature 36.3 ??C (97.3 ??F) 10/02/2024 2:00 PM ES T Respiratory Rate 16 10/29/2024 1:25 PM EST Oxygen Saturation 97% 10/29/2024 1:25 PM EST Inhaled Oxygen Concentration - - Weight 74.1 kg (163 lb 6.4 oz) 10/29/2024 1:25 P M EST Height 162.6 cm (5' 4 ) 10/29/2024 1:25 PM EST Body Mass Index 28.05 10/29/2024 1:25 PM EST Plan of Treatment Upcoming Encounters Date Type Department Care Team (Late st Contact Info) Description 11/27/2024 2:[address] [facility] CT Scan [address] [place] [address] 12/17/2024 9:[address] [facility] Endoscopy [address] [place] [address] Valente Camarena MD [address] [address] 01/13/2025 2:15 PM EDT Office Visit [facility] Hematology Oncology [address] [place] [address] Carmen Felix MD [address] [place] [address] Health Maintenance Due Date Last Done Comments Breast Cancer Screening 1950 Diabetes: Annual Foot Exam 02/29/1960 Diabetes: Annual Retina Eye Exam 02/29/1960 Zoster Vaccines (1 of 2) 1969 DTaP,Tdap,and Td Vaccines (2 - Td or Tdap) 09/16/2015 09/16/2005 COVID-19 Vaccine ( season) 2024 10/22/2023, 06/27/2022, 02/06/2022, Additional history exists Cholesterol Screening (Lipid Panel) 07/01/2024 Colorectal Cancer Screening: Colonoscopy 07/01/2024 Depression Screening 07/01/2024 Falls Risk Assessment 07/01/2024 Hepatitis C Screening 07/01/2024 Medicare Annual Wellness Visit 07/01/2024 Osteoporosis Screening (Bone Density Screening) 07/01/2024 Social Influencers of Health Screening 07/01/2024 Diabetes: Annual Urine Albumin-Creatinine Ratio (uACR) 10/02/2024 Diabetes: Blood Sugar Control Test (HGBA1C) 10/02/2024 Diabetes: Annual GFR (Glomerular Filtration Rate) 10/29/2025 10/29/2024, 08/20/2023, 07/09/2023, Additional history exists Hypertension/CHF/CAD Annual BMP Blood Test 10/29/2025 10/29/2024, 08/20/2023, 07/09/2023, Additional history exists Pneumococcal Vaccine: 50+ Years Completed 07/01/2019, 07/14/2018 RSV Immunization Patients 60+ Years Old Completed 07/16/2023 Influenza Vaccine Completed 06/26/2024, , 06/27/2022, Additional history exists HIB Vaccines Aged Out No longer eligi ble based on patient's age to complete this topic HPV Vaccines Aged Out No longer eligi ble based on patient's age to complete this topic Hepatitis A Vaccines Aged Out No long er eligible based on patient's age to complete this topic Hepatitis B Vaccines Aged Out No long er eligible based on patient's age to complete this topic IPV Vaccines Aged Out No longer eligi ble based on patient's age to complete this topic MMR Vaccines Aged Out No longer eligi ble based on patient's age to complete this topic Meningococcal ACWY Vaccine Aged Out N o longer eligible based on patient's age to complete this topic Meningococcal B Vacine Aged Out No lo nger eligible based on patient's age to complete this topic RSV Immunization Patients Under 20 months Aged Out No longer eligible based on patient's age to complete this topic Varicella Vaccines Aged Out No longer eligible based on patient's age to complete this topic Procedures Procedure Name Priority Date/Time Associated Diagnosis Comments CBC WITH AUTO DIFFERENTIAL Routine 10/29/2024 2:23 PM EST Gastroesophageal reflux disease without esophagitis H/O: lung cancer H/O malignant neoplasm of colon 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, managed as type 2 (CMS/HCC) Hernia of abdominal wall Epigastric pressure Hiatal hernia COMPREHENSIVE METABOLIC PANEL Routine 10/29/2024 2:23 PM EST Gastroesophageal reflux disease without esophagitis H/O: lung cancer H/O malignant neoplasm of colon 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, managed as type 2 (CMS/HCC) Hernia of abdominal wall Epigastric pressure Hiatal hernia CBC AND DIFFERENTIAL Routine 10/29/2024 2:23 PM EST Gastroesophageal reflux disease without esophagitis H/O: lung cancer H/O malignant neoplasm of colon 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, managed as type 2 (CMS/HCC) Hernia of abdominal wall Epigastric pressure Hiatal hernia XR SACRUM COCCYX 2+ VIEWS STAT 10/02/2024 4:07 PM EST XR LUMBAR SPINE 2-3 VIEWS STAT 10/02/2024 4:07 PM EST from Last 3 Months Results * (ABNORMAL) CBC auto differential (10/29/2024 2:23 PM EST) WBC 7.7 4.8 - 10.8 K/mcL LAB HEMETOLOGY METHOD 10/29/2024 6:16 PM EST [facility] RBC 4.90(H) 3.80 - 4.80 M/mcL LAB HEMETOLOGY METHOD 10/29/2024 6:16 PM [facility] Hemoglobin 14.7 11.5 - 16.0 g/dL LAB HEMETOLOGY METHOD 10/29/2024 6:16 PM [facility] Hematocrit 45.0 35.0 - 47.0 % LAB HEMETOLOGY METHOD 10/29/2024 6:16 PM [facility] MCV 91.3 79.0 - 98.0 FL LAB HEMETOLOGY METHOD 10/29/2024 6:16 PM [facility] MCH 29.8 27.0 - 32.0 pcg LAB HEMETOLOGY METHOD 10/29/2024 6:16 PM [facility] MCHC 32.7 32.0 - 37.0 g/dL LAB HEMETOLOGY METHOD 10/29/2024 6:16 PM [facility] RDW 13.2 11.0 - 15.0 % LAB HEMETOLOGY METHOD 10/29/2024 6:16 PM [facility] Platelets 235 130 - 400 K/mcL LAB HEMETOLOGY METHOD 10/29/2024 6:16 PM [facility] MPV 10.0 7.0 - 11.0 FL LAB HEMETOLOGY METHOD 10/29/2024 6:16 PM [facility] NRBC 0.0 <1.0 % LAB HEMETOLOGY METHOD 10/29/2024 6:16 PM [facility] NRBC Absolute 0.00 <0.10 K/mcL LAB HEMETOLOGY METHOD 10/29/2024 6:16 PM [facility] Neutrophils Relative 69.4 % LAB HEMETOLOGY METHOD 10/29/2024 6:16 PM [facility] Lymphocytes Relative 17.3 % LAB HEMETOLOGY METHOD 10/29/2024 6:16 PM EST [facility] Monocytes Relative 8.9 % LAB HEMETOLOGY METHOD 10/29/2024 6:16 PM EST [facility] Eosinophils Relative 3.5 % LAB HEMETOLOGY METHOD 10/29/2024 6:16 PM [facility] Basophils Relative 0.5 % LAB HEMETOLOGY METHOD 10/29/2024 6:16 PM [facility] Immature Granulocytes Relative 0.4 % LAB HEMETOLOGY METHOD 10/29/2024 6:16 PM [facility] Neutrophils Absolute 5.32 1.50 - 7.00 K/mcL LAB HEMETOLOGY METHOD 10/29/2024 6:16 PM [facility] Lymphocytes Absolute 1.33 1.00 - 5.00 K/mcL LAB HEMETOLOGY METHOD 10/29/2024 6:16 PM [facility] Monocytes Absolute 0.68 0.20 - 1.00 K/mcL LAB HEMETOLOGY METHOD 10/29/2024 6:16 PM [facility] Eosinophils Absolute 0.27 0.00 - 0.50 K/mcL LAB HEMETOLOGY METHOD 10/29/2024 6:16 PM [facility] Basophils Absolute 0.04 0.00 - 0.20 K/mcL LAB HEMETOLOGY METHOD 10/29/2024 6:16 PM [facility] Immature Granulocytes Absolute 0.03 0.00 - 0.03 K/mcL LAB HEMETOLOGY METHOD 10/29/2024 6:16 PM [facility] Blood Venous blood specimen / Unknown Venipuncture / Unknown 10/29/2024 2:23 PM EST 10/29/2024 2:23 PM EST us Thomas ROSAS LAB BLOOD ORDERABLES Final Resu lt [facility] [address] [place] [address], * (ABNORMAL) Comprehensive metabolic panel (10/29/2024 2:23 PM EST) Sodium 139 133 - 145 mmol/L LAB CHEMISTRY METHOD 10/29/2024 6:41 PM [facility] Potassium 4.2 3.5 - 5.5 mmol/L LAB CHEMISTRY METHOD 10/29/2024 6:41 PM [facility] Chloride 107 96 - 110 mmol/L LAB CHEMISTRY METHOD 10/29/2024 6:41 PM [facility] CO2 27 21 - 32 mmol/L LAB CHEMISTRY METHOD 10/29/2024 6:41 PM [facility] Anion Gap 5 3 - 11 LAB CHEMISTRY METHOD 10/29/2024 6:41 PM [facility] Glucose 163(H) 70 - 100 mg/dL LAB CHEMISTRY METHOD 10/29/2024 6:41 PM [facility] BUN 19 5 - 25 mg/dL LAB CHEMISTRY METHOD 10/29/2024 6:41 PM [facility] Creatinine 1.02 0.50 - 1.10 mg/dL LAB CHEMISTRY METHOD 10/29/2024 6:41 PM [facility] eGFR 58(L) >=60 mL/min/1. 73m2 LAB CHEMISTRY METHOD 10/29/2024 6:41 PM [facility] Comment:Calculation based on the??Chronic Kidney Disease Epidemiology Collaboration (CKD-EPI) equation refit??without adjustment for race. BUN/Creatinine Ratio 18.6 LAB CHEMISTRY METHOD 10/29/2024 6:41 PM [facility] Calcium 9.4 8.5 - 10.5 mg/dL LAB CHEMISTRY METHOD 10/29/2024 6:41 PM [facility] AST (SGOT) 33 10 - 42 unit/L LAB CHEMISTRY METHOD 10/29/2024 6:41 PM EST [facility] ALT (SGPT) 46 10 - 60 unit/L LAB CHEMISTRY METHOD 10/29/2024 6:41 PM EST [facility] Alkaline Phosphatase 99 42 - 121 unit/L LAB CHEMISTRY METHOD 10/29/2024 6:41 PM EST [facility] Total Protein 6.8 6.0 - 8.0 g/dL LAB CHEMISTRY METHOD 10/29/2024 6:41 PM EST [facility] Albumin 4.0 3.2 - 5.0 g/dL LAB CHEMISTRY METHOD 10/29/2024 6:41 PM [facility] Total Bilirubin 1.7(H) 0.0 - 1.4 mg/dL LAB CHEMISTRY METHOD 10/29/2024 6:41 PM EST [facility] Blood Venous blood specimen / Unknown Venipuncture / Unknown 10/29/2024 2:23 PM EST 10/29/2024 2:23 PM EST us Thomas ROSAS LAB BLOOD ORDERABLES Final Resu lt [facility] [address] [place] [address], * XR Sacrum Coccyx 2+ Views (10/02/2024 4:07 PM EST) Anatomical Region Laterality Modality Body, Spine, Pelvis Radiographic Imaging 10/02/2024 4:21 PM EST Impressions 10/02/2024 4:25 PM EST FINDINGS/IMPRESSION: Degenerative changes at the sacroiliac joints bilaterally. ??No sacral fracture. ??Soft tissues are unremarkable. ??Pelvic phleboliths. ??Transitional L5 vertebral body with sacralization. -------- FINAL REPORT -------- Dictated By: DREW VILLATORO Dictated Date: 10/02/2024 16:21 ET Assigned Physician: DREW VILLATORO Reviewed and Electronically Signed By: DREW VILLATORO Signed Date: 10/02/2024 16:25 ET Workstation ID: [id number] Transcribed By: Self Edit Transcribed Date: 10/02/2024 16:21 ET Narrative 10/02/2024 4:25 PM EST XR SACRUM COCCYX 2+ VIEWS INDICATION: ??Pain TECHNIQUE: XR SACRUM COCCYX 2+ VIEWS COMPARISON: No priors available. Procedure Note Drew Villatoro MD - 10/02/2024 XR SACRUM COCCYX 2+ VIEWS INDICATION: Pain TECHNIQUE: XR SACRUM COCCYX 2+ VIEWS COMPARISON: No priors available. IMPRESSION: FINDINGS/IMPRESSION: Degenerative changes at the sacroiliac jointsbilaterally. No sacral fracture. Soft tissues are unremarkable. Pelvicphleboliths. Transitional L5 vertebral body with sacralization. -------- FINAL REPORT -------- Dictated By: DREW VILLATORO Dictated Date: 10/02/2024 16:21 ET Assigned Physician: DREW VILLATORO Reviewed and Electronically Signed By: DREW VILLATORO Signed Date: 10/02/2024 16:25 ET Workstation ID: [id number] Transcribed By: Self Edit Transcribed Date: 10/02/2024 16:21 ET us Joseph Owusu MD IMG XR PROCEDURES Final Res ult * XR Lumbar Spine 2-3 Views (10/02/2024 4:07 PM EST) Anatomical Region Laterality Modality Spine, L-spine Radiographic Kaelyn ging 10/02/2024 4:25 PM EST Impressions 10/02/2024 4:32 PM EST FINDINGS/IMPRESSION: Transitional lumbosacral anatomy with sacralized L5 vertebral body. ??Levoconvex thoracolumbar scoliosis centered at L2. ??No fracture. ??Disc space heights are relatively preserved. ??Advanced lower lumbar facet arthritis. ??Arterial calcifications. ??Calcifications overlying the left kidney may represent nonobstructive calculi. ??Pelvic phleboliths noted. -------- FINAL REPORT -------- Dictated By: DREW VILLATORO Dictated Date: 10/02/2024 16:25 ET Assigned Physician: DREW VILLATORO Reviewed and Electronically Signed By: DREW VILLATORO Signed Date: 10/02/2024 16:32 ET Workstation ID: [id number] Transcribed By: Self Edit Transcribed Date: 10/02/2024 16:25 ET Narrative 10/02/2024 4:32 PM EST XR LUMBAR SPINE 2-3 VIEWS INDICATION: ??Pain TECHNIQUE: XR LUMBAR SPINE 2-3 VIEWS COMPARISON: No priors available. Procedure Note Drew Villatoro MD - 10/02/2024 XR LUMBAR SPINE 2-3 VIEWS INDICATION: Pain TECHNIQUE: XR LUMBAR SPINE 2-3 VIEWS COMPARISON: No priors available. IMPRESSION: FINDINGS/IMPRESSION: Transitional lumbosacral anatomy with sacralized N0atxbbilpm body. Levoconvex thoracolumbar scoliosis centered at L2. Nofracture. Disc space heights are relatively preserved. Advanced lowerlumbar facet arthritis. Arterial calcifications. Calcificationsoverlying the left kidney may represent nonobstructive calculi. Pelvicphleboliths noted. -------- FINAL REPORT -------- Dictated By: DREW VILLATORO Dictated Date: 10/02/2024 16:25 ET Assigned Physician: DREW VILLATORO Reviewed and Electronically Signed By: DREW VILLATORO Signed Date: 10/02/2024 16:32 ET Workstation ID: [id number] Transcribed By: Self Edit Transcribed Date: 10/02/2024 16:25 ET Joseph Owusu MD IMG XR PROCEDURES Final Res ult from Last 3 Months Insurance [employer] MED[employer]ARE Care Teams Agricultural Research Engineer Relationship Specialty Start Date End Date Jung Carranza MD [address] [place] [address] [address] [place], [place] PCP - General Internal Medicine 12/08/18
--- OUTSIDE RECORDS SUMMARY | 2024-11-10 17:20 | XMS_ITS | Encounter Summary ---
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 G erd. Patient having epigastric pressure since hernia surgery. Encounter Details Date Type Department Care Team ([facility] st Contact Info) Description 10/29/2024 1:20 PM EST Consult Gastroenterology - [place] [address] [facility] [address] [place] [address] Thomas Baron PA [address] [facility] [address] [place] [address] Gastroesophageal reflux disease without esophagitis (Primary Dx); H/O: lung cancer; H/O malignant neoplasm of colon; History of acute anterior wall myocardial infarction; Diabetes 1.5, managed as type 2 (CMS/HCC); Hernia of abdominal wall; Epigastric pressure; Hiatal hernia Social History Tobacco Use Types Packs/Day Years [...] on file documented as of this encounter Last Filed Vital Signs Vital Sign Reading Time Taken Comments Blood Pressure 108/62 10/29/2024 1:25 PM EST Pulse 87 10/29/2024 1:25 PM EST Temperature - - Respiratory Rate 16 10/29/2024 1:25 PM EST Oxygen Saturation 97% 10/29/2024 1:25 PM EST Inhaled Oxygen Concentration - - Weight 74.1 kg (163 lb 6.4 oz) 10/29/2024 1:25 P M EST Height 162.6 cm (5' 4 ) 10/29/2024 1:25 PM EST Body Mass Index 28.05 10/29/2024 1:25 PM EST documented in this encounter Patient Instructions * Attachments The following attachments cannot be sent through Care Everywhere. * A1c (Honduran) * Abdominal Pain (Honduran) * Acid-Reducing Medicines: General Info (Honduran) * Dyspepsia (Honduran) * Abdominal Hernia Repair: Post-op (Honduran) * Hernia (Honduran) * Hiatal Hernia (Honduran) documented in this encounter Ordered Prescriptions Prescription Sig Dispense Quantity Refills Last Filled Start Date End Date ondansetron (ZOFRAN) 8 mg tabletIndications:G astroesophageal reflux disease without esophagitis,H/O: lung cancer,H/O malignant neoplasm of colon,History of acute anterior wall myocardial infarction,Diabetes 1.5, managed as type 2 (CMS/HCC),Hernia of abdominal wall,Epigastric pressure,Hiatal hernia Take 1 tablet (8 mg total) by mouth 3 (three) times a day if needed for nausea or vomiting. 60 tablet 6 10/29/2024 documented in this encounter Progress Notes * RALPH Bae - 10/29/2024 1:20 PM EST Patient seen for further evaluation of upper abdominal pressure with nausea. Patient does have a lengthy h/o lung ca, colon ca, has had an MN in the past and states that her conditions are stable. Patient did have multiple abdominal wall hernia repair a couple of months ago at [facility]. States that since her surgery she feels more pressure in her stomach, especially after eating and now eats smaller meals and small amount of liquids. States that she does not have heartburn just pressure. Does have ahiatal hernia and has a remote h.o an egd and colonoscopy with Dr Amador. Patient remarks that this pressure is moreso since the hernia wall repair and patient will perform labs and Ct for further evaluation and we will be in touch with patient. She is nauseated and will order zofran and she will contact us with update on sxs. Patient also has a moderate hiatal hernia that may be contributing toher sxs as well. May refer to thoracic surgeon as well. * RALPH Bae - 10/29/2024 1:20 PM EST CONSULT REQUEST: Corin Alvarenga is a 74 y.o. female referred by Seven Felix* for evaluation of epigastric pressure HPI: 74-year-old female seen for further evaluation of upper abdominal pressure with nausea. Patient does have a lengthy health history of lung ca, colon ca, has had an MN in the past and states that her conditions are stable. Patient did have multiple abdominal wall hernia repair a couple of months ago at [facility]. States that since her surgery she feels more pressure in her stomach, especially after eating and now eats smaller meals and small amount of liquids. States that she does not have heartburn just pressure and does have some nausea as well. .Does have a hiatal hernia and has a remote h.o an egd and colonoscopy with Dr Amador. Patient remarks that this pressure is moreso since the hernia wall repair and patient will perform labs and Ct for further evaluation and we will be in touch with patient as she does state that she was told by the [facility] surgeon that there was multiple abdominal wall hernias that were all gathered together and it sounds like a mesh was in place over these hernias and may be pushing inwardly on her stomach. She does admit that she is nauseated and will order zofran and she will contact us with update on sxs. Patient also has a moderate hiatal hernia that may be contributing to her sxs as well. May refer to thoracic surgeon as well for further evaluation of the hiatal hernia. ROS: GENERAL: No malaise, significant weight loss or fever HEENT: No changes in hearing or vision, nose bleeds or swallowing problems NECK: No lumps, goiter, pain or significant neck swelling RESPIRATORY: No cough, wheezing or shortness of breath, positive for history of 2 types of lung cancer CARDIOVASCULAR: No chest pain, leg swelling or palpitations, positive for remote history of an MN on Plavix GI: Positive for history of colon cancer, moderate hiatal hernia, right hemicolectomy, diverticulosis, abdominal wall hernia repair MUSCULOSKELETAL: No joint pain or swelling, back pain, or muscle pain. SKIN: No lesions, rash or itching The remainder of the review of systems is reviewed and negative. PAST MEDICAL HISTORY: Patient Active Problem List Diagnosis Asthma-COPD overlap syndrome (CMS/HCC) COPD (chronic obstructive pulmonary disease) (CMS/HCC) Gastroesophageal reflux Hiatal hernia Hyperlipidemia Pulmonary nodules PAST SURGICAL HISTORY: Past Surgical History: Procedure Laterality Date COLON SURGERY PROCEDURE:COLON SURGERY LUNG SURGERY PROCEDURE:LUNG SURGERY OTHER SURGICAL HISTORY PROCEDURE: ---- OTHER ----; COMMENT: lung resection for cancer x2 SOCIAL HISTORY: Social History Tobacco Use Smoking status: Former Current packs/day: 1.50 Types: Cigarettes Smokeless tobacco: Never Substance Use Topics Alcohol use: Not Currently Drug use: Never FAMILY HISTORY: No family history on file. Family History is negative for colon, gastric, esophageal cancer in first and second degree relatives MEDICATIONS: Outpatient Medications Marked as Taking for the 10/29/24 encounter (Consult) with RALPH Bae Medication Sig Dispense Refill albuterol HFA (PROAIR HFA ; PROVENTIL HFA ; VENTOLIN HFA) 90 mcg/actuation inhaler Inhale 2 puffs by mouth every 4 (four) hours if needed. calcium carbonate/vitamin D3 (CALCIUM + D ORAL) Take by mouth. cetirizine (ZyrTEC) 10 mg capsule Take by mouth. clopidogreL (PLAVIX) 75 mg tablet Take 1 tablet (75 mg total) by mouth 1 (one) time each day. eszopiclone (LUNESTA) 3 mg tablet Take 3 mg by mouth at bedtime as needed. ezetimibe (ZETIA) 10 mg tablet Route: Take 10 mg by mouth daily. - Oral LORazepam (ATIVAN) 0.5 mg tablet - Route: Take 0.5 mg by mouth every 6 hours as needed. - Oral losartan (COZAAR) 50 mg tablet Take 50 mg by mouth daily. multivitamin (MULTIPLE VITAMINS ORAL) Take by mouth. Rybelsus 7 mg tablet Take 1 tablet (7 mg total) by mouth 1 (one) time each day before breakfast. [DISCONTINUED] rosuvastatin (CRESTOR) 40 mg tablet - Route: Take 40 mg by mouth daily. - Oral ALLERGIES: @ALL@ PHYSICAL EXAM: Visit Vitals BP 108/62 (BP Location: Left arm, Patient Position: Sitting, BP Cuff Size: Adult) Pulse 87 Resp 16 Ht 1.626 m (64 ) Wt 74.1 kg (163 lb 6.4 oz) SpO2 97% BMI 28.05 kg/m?? Smoking Status Former BSA 1.8 m?? APPEARANCE: Alert and in no acute distress EYES: PERRLA, conjunctiva and sclera normal. NECK: Neck supple, no adenopathy HEART: RRR with normal S1 and S2, no murmurs appreciated LUNG: clear to auscultation LYMPH NODES: grossly normal ABDOMEN: Soft, nontender, normal active bowel sounds throughout, no organomegaly RECTAL: Exam deferred EXTREMITIES: Extremities warm and well perfused NEURO: Awake, alert and oriented x 3 SKIN: Skin color, texture, turgor normal. LABS: No results found for: WBC , HGB , HCT , MCV , PLT , NA , K , CL , CO2 , GLUCOSE , BUN , CREATININE , CALCIUM , PROT , ALBUMIN , BILITOT , AST , ALT , URICACID , PHOS , MG , ALKPHOS , EGFR No results found for: SEDRATE , CRP , IRON , FERRITIN , CDIFFTOX , HPYLORI , STOOLCX , LIPASE , APTT , PT , INR , CELIAC , TTGIGA , GLIADINIGA , OCCULTBLD , CALPROTECTIN IMAGING: XR Lumbar Spine 2-3 Views Narrative: XR LUMBAR SPINE 2-3 VIEWS INDICATION: Pain TECHNIQUE: XR LUMBAR SPINE 2-3 VIEWS COMPARISON: No priors available. 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 Levoconvex thoracolumbar scoliosis centered at L2. No fracture. Disc space heights are relatively preserved. Advanced lower lumbar facet arthritis. Arterial calcifications. Calcifications overlying the left kidney may represent nonobstructive calculi. Pelvic phleboliths noted. -------- FINAL REPORT -------- Dictated By: ROBERTO VILLATORO Dictated Date: 10/02/2024 16:25 ET Assigned Physician: ROBERTO VILLATORO Reviewed and Electronically Signed By: ROBERTO VILLATORO Signed Date: 10/02/2024 16:32 ET Workstation ID: [id number] Transcribed By: Self Edit Transcribed Date: 10/02/2024 16:25 ET XR Sacrum Coccyx 2+ Views Narrative: XR SACRUM COCCYX 2+ VIEWS INDICATION: Pain TECHNIQUE: XR SACRUM COCCYX 2+ VIEWS COMPARISON: No priors available. Impression: FINDINGS/IMPRESSION: Degenerative changes at the sacroiliac joints bilaterally. No sacral fracture. Soft tissues are unremarkable. Pelvic phleboliths. Transitional L5 vertebral body with sacralization. -------- FINAL REPORT -------- Dictated By: ROBERTO VILLATORO Dictated Date: 10/02/2024 16:21 ET Assigned Physician: ROBERTO VILLATORO Reviewed and Electronically Signed By: ROBERTO VILLATORO Signed Date: 10/02/2024 16:25 ET Workstation ID: [id number] Transcribed By: Self Edit Transcribed Date: 10/02/2024 16:[address] MRI US Results for orders placed in visit on 06/12/24 HISTORICAL IMAGING SCAN RESULT IMPRESSION: 1. Gastroesophageal reflux disease without esophagitis 2. H/O: lung cancer 3. H/O malignant neoplasm of colon 4. History of acute anterior wall myocardial infarction 5. Diabetes 1.5, managed as type 2 (CMS/HCC) 6. Hernia of abdominal wall 7. Epigastric pressure 8. Hiatal hernia PLAN: 1. GERD, history of lung cancer, colon cancer, history of MN, diabetes, hernia of abdominal wall repair, epigastric pressure and hiatal hernia Patient states that she has been having more issues over the last couple of months with upper abdominal pressure with nausea. She did have abdominal wall hernia repair that was performed at [facility] couple of months ago. She states that she was told that there were several hernias andthat they are all come together together and mesh was placed over it. She states that since she hashad that surgery she has felt more pressure on her stomach. She remarks that she does not eat very much because if she eats a full meal then she has a lot of pain and she has nausea with this pressure. She is also noted to have a hiatal hernia. Due to her abdominal wall pressure and epigastric pressure with nausea, patient will perform labs and CT of abdomen and pelvis and we will be in touch with her in regards to results. Patient does have a lengthy history of lung cancer, colon cancer diabetes and an MN but states thatall of these conditions are stable and that she continues to follow-up with hematology/oncology as scheduled. Hiatal hernia Patient is aware that the hiatal hernia may also be causing some pressure in her stomach and we have suggested that depending on the findings on the CT, we may need to refer her to thoracic surgery just to discuss possible intervention regarding her hiatal hernia. Patient is aware that she can contact office at anytime with any questions or concerns Total time of today's encounter is 48 minutes in preparing to see the patient, reviewing labs, diagnostic studies as well as other provider notes, documenting in charting, creating an HPI, performinga medically appropriate exam, counseling patient at length in regards to abdominal wall pressure, nausea, recent abdominal wall hernia surgery and hiatal hernia as well as prescribing medication. There was documentation in EMR after visit. None of which time was spent performing separately billableprocedures or ancillary services. Much appreciation for allowing us to participate in patient's care Orders Placed This Encounter Procedures CT Abdomen Pelvis w Contrast CBC and differential Comprehensive metabolic panel CT ABDOMEN PELVIS W CONTRAST RALPH Bae cc: Seven Felix* documented in this encounter Plan of Treatment Upcoming Encounters Date Type Department Care Team (Late st Contact Info) Description 11/27/2024 2:45 PM EDT Appointment [facility] CT Scan [address] [place] [phone] 12/17/2024 9:30 AM EDT Appointment [facility] Endoscopy [address] [place] [phone] Valente Camarena MD [address] [address] 01/13/2025 2:15 PM EDT Office Visit [facility] Hematology Oncology [address] [place] [phone] Carmen Felix MD [address] [place] [phone] Scheduled Orders Name Type Priority Associated Diagnoses Orde r Schedule CT Abdomen Pelvis w Contrast Imaging Routine Gastroesophageal reflux disease without esophagitis H/O: lung cancer H/O malignant neoplasm of colon 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, managed as type 2 (CMS/HCC) Hernia of abdominal wall Epigastric pressure Hiatal hernia Expected: 10/29/2024, Expires: 10/29/2025 documented as of this encounter Results * (ABNORMAL) Comprehensive metabolic panel (10/29/2024 2:23 PM EST) Sodium 139 133 - 145 mmol/L LAB CHEMISTRY METHOD 10/29/2024 6:41 PM EST [facility] Potassium 4.2 3.5 - 5.5 mmol/L LAB CHEMISTRY METHOD 10/29/2024 6:41 PM EST [facility] Chloride 107 96 - 110 mmol/L LAB CHEMISTRY METHOD 10/29/2024 6:41 PM EST [facility] CO2 27 21 - 32 mmol/L LAB CHEMISTRY METHOD 10/29/2024 6:41 PM EST [facility] Anion Gap 5 3 - 11 LAB CHEMISTRY METHOD 10/29/2024 6:41 PM [facility] Glucose 163(H) 70 - 100 mg/dL LAB CHEMISTRY METHOD 10/29/2024 6:41 PM [facility] BUN 19 5 - 25 mg/dL LAB CHEMISTRY METHOD 10/29/2024 6:41 PM [facility] Creatinine 1.02 0.50 - 1.10 mg/dL LAB CHEMISTRY METHOD 10/29/2024 6:41 PM [facility] eGFR 58(L) >=60 mL/min/1. 73m2 LAB CHEMISTRY METHOD 10/29/2024 6:41 PM [facility] Comment:Calculation based on the??Chronic Kidney Disease Epidemiology Collaboration (CKD-EPI) equation refit??without adjustment for race. BUN/Creatinine Ratio 18.6 LAB CHEMISTRY METHOD 10/29/2024 6:41 PM [facility] Calcium 9.4 8.5 - 10.5 mg/dL LAB CHEMISTRY METHOD 10/29/2024 6:41 PM [facility] AST (SGOT) 33 10 - 42 unit/L LAB CHEMISTRY METHOD 10/29/2024 6:41 PM [facility] ALT (SGPT) 46 10 - 60 unit/L LAB CHEMISTRY METHOD 10/29/2024 6:41 PM [facility] Alkaline Phosphatase 99 42 - 121 unit/L LAB CHEMISTRY METHOD 10/29/2024 6:41 PM [facility] Total Protein 6.8 6.0 - 8.0 g/dL LAB CHEMISTRY METHOD 10/29/2024 6:41 PM [facility] Albumin 4.0 3.2 - 5.0 g/dL LAB CHEMISTRY METHOD 10/29/2024 6:41 PM [facility] Total Bilirubin 1.7(H) 0.0 - 1.4 mg/dL LAB CHEMISTRY METHOD 10/29/2024 6:41 PM EST [facility] Blood Venous blood specimen / Unknown Venipuncture / Unknown 10/29/2024 2:23 PM EST 10/29/2024 2:23 PM EST us Thomas ROSAS LAB BLOOD ORDERABLES Final Resu lt [facility] [address] [place] [address], documented in this encounter Visit Diagnoses Diagnosis Gastroesophageal reflux disease without esophagitis- Primary Esophageal reflux H/O: lung cancer Personal history of malignant neoplasm of bronchus and lung H/O malignant neoplasm of colon 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 01/13/2019 10/29/2024 metoprolol tartrate (LOPRESSOR) 25 mg tablet Take 25 mg by mouth 2 times daily. 10/29/2024 omeprazole (PriLOSEC) [address] capsule Take 20 mg by mouth daily. 10/29/2024 rosuvastatin (CRESTOR) 40 mg tablet - Route: Take 40 mg by mouth daily. - Oral 06/30/2024 10/29/2024 oxyCODONE (ROXICODONE) 5 mg immediate release tablet Take 1 tablet (5 mg total) by mouth every 8 (eight) hours if needed for severe pain. Max Daily Amount: 15 mg 10/02/2024 10/29/2024 documented as of this encounter Historical Medications * This list may reflect changes made after this encounter. Rybelsus 7 mg tablet Take 1 tablet (7 mg total) by mouth 1 (one) time each day before breakfast. 09/18/2024 Jardiance 25 mg tablet Take 1 tablet (25 mg total) by mouth 1 (one) time each day. added in this encounter Care Teams Loom Inspector Relationship Specialty Start Date End Date Jung Carranza MD [address] [facility] [address] [place], [place] PCP - General Internal Medicine 12/08/18 documented as of this encounter
== END 2024-11-10 16:16 | disposition home or self-care (01) ==
PROVIDERS: PCP Internal Medicine; Visit Provider Physician Assistant Medical
DX: E11.21 Type 2 diabetes mellitus with diabetic nephropathy (principal); E11.42 Type 2 diabetes mellitus with diabetic polyneuropathy; N28.9 Disorder of kidney and ureter, unspecified

== ENCOUNTER → 2024-11-10 13:52 | Outpatient (BNVA) | payer OTHER, SELFPAY | PROVIDERS: PCP Internal Medicine; Visit Provider Physician Assistant Medical | DX: E11.21 Type 2 diabetes mellitus with diabetic nephropathy (principal); E11.42 Type 2 diabetes mellitus with diabetic polyneuropathy; N28.9 Disorder of kidney and ureter, unspecified | CPT/HCPCS: 82947; 83036 ==

== ENCOUNTER 2024-12-07 15:24 | Outpatient (AMB) | payer OTHER, SELFPAY ==
--- NOTE | 2024-12-07 16:39 | A.OFFVIS_ITS ---
Intake Intake Visit Reasons: T2DM Pipe Foreman Required: No Accompanied by: Self / Same As Patient Allergies gabapentin [From Neurontin] Allergy (Severe, Verified 11/10/24 14:08) Itching latex Allergy (Severe, Verified 11/10/24 14:08) Swelling levofloxacin [Levaquin] Allergy (Severe, Verified 11/10/24 14:08) Swelling Aspirin Allergy (Severe, Uncoded 11/10/24 14:08) Swelling HPI Comprehensive Diabetes Asmnt Most Recent Diabetes Results: No Data to Display [facility] Medical History (Updated 11/10/24 @ 15:47 by RALPH Ng) CHF (congestive heart failure) Renal insufficiency Peripheral sensory neuropathy due to type 2 diabetes mellitus Type II diabetes mellitus History of transfusion of packed red blood cells Migraine History of placement of stent in LAD coronary artery Osteoporosis Hyperlipidemia Depression CAD (coronary artery disease) Sleep apnea On anticoagulant therapy TIA (transient ischemic attack) Myocardial infarction Obesity Diabetes Dyslipidemia History of colon cancer HTN (hypertension) Carotid stenosis, asymptomatic GERD (gastroesophageal reflux disease) Colon cancer Pre-op chest exam Lung cancer Pulmonary nodules Dyspnea COPD (chronic obstructive pulmonary disease) Pulmonary nodule Surgical History History of incisional hernia repair (07/06/24) Hx of tonsillectomy Hx of tubal ligation History of dental surgery Hx of cardiac catheterization History of lobectomy of lung Social History Household Members: None Housing: House Are you a primary daycare provider to a significant other at home: No Do you presently have visiting nurse or other home services: No Patient Tobacco Use Status: Former Tobacco user Tobacco use type: Cigarette Years Smoked: 20+ Years Second Hand Smoke Exposure: No service: No Assessment & Plan Assessment & Plan (1) Type II diabetes mellitus: Code(s): E11.9 - Type 2 diabetes mellitus without complications Qualifiers: Diabetes mellitus rodent exterminator insulin use: without skilled nursing use Diabetes mellitus complication status: with kidney complications Diabetes mellitus complication detail: with nephropathy Qualified Code(s): E11.21 - Type 2 diabetes mellitus with diabetic nephropathy Plan: Diabetes self-management education and support participation record Assessment/scale: 1= needs instructed? 2= needs review? 3= comprehend keep point? 4= demonstrates understanding/ competent? NC= Not Covered Topics Learning Objective: Initial visit Initial or post srvc Initial or post srvc Initial or post srvc Initial or post srvc Initial or post srvc Post srvc Comments Pre Edu-assessment/plan Outcome or reassess Ou tcome or reassess Outcome or reassess Outcome or reassess Outcome or reassess Outcome or reassess Diabetes pathophysiology 1 Healthy eating 1 Being active 1 Taking medication 1 C Monitoring glucose 1 Acute complication 1 Chronic complicated 1 Lifestyle and healthy coping 1 Diabetes distress in support 1 ?Diabetes pathophysiology: ?Defined diabetes med identify own type of diabetes; list 3 options for treating diabetes Healthy eating: ?Described effect of type, amount and ?timing of food on blood glucose; list 3 methods for planning meal Being active: ?State effect of exercise on blood glucose level Taking medication: ?State effect of diabetes medications on diabetes; name diabetes medications taking, action and side effects Monitoring glucose: ?Identify recommended blood glucose targets and personal target Acute complication: ?List symptoms and treatment of hyper and hypoglycemia, DKA, sick day guidelines and guidelines for severe weather or situations of crisis and diabetes supply manage Chronic complication: ?To find the relationship of blood glucose levels to long- term complications of diabetes in screening and preventative measures Lifestyle and healthy coping: ?Described lifestyle and healthy coping strategies to rule out diabetes self-management Diabetes to stress and support: ?Recognize Diabetes to stress and be able to identified support options Learning objectives: The patient was provided with verbal and written education on the following topics as outlined below. The patient met all learning objectives and was able to verbalize understanding and provide teach back of education topics discussed . The patient was provided with the opportunity to ask questions and all questions were answered. Patient Assessment Assess patient education level/literacy/barriers, patient was diagnosed with diabetes 3-4 years ago. At today's visit patient reported that she had been diagnosed with pancreatic cancer recently. At today's visit patient seemed overwhelmed by diagnosis. Patient stated this is the 4th time she has been diagnosed with cancer. Patient also stated that she has not started Trulicity 0.75 mg weekly, because she is concerned about the side effects. Currently she is only taking Jardiance 25 mg daily for diabetes medication. Patient has upcoming visit with Endocrine PA on 12/08/2024, recommended to patient she discuss alternative medication at that visit. Patient's last A1c on 11/10/2024 What is Diabetes? Pathophysiology How the body produces and uses insulin Identify type of DM Risk factors Signs of Diabetes Brief overview of Diabetes Management Monitoring blood sugar Following a meal plan Regular exercise Maintaining a healthy weight Taking medication as needed Members of the care team (PCP, RN, MA, RD, CDE, stitching machine operator) Blood glucose monitoring When/how often to test Target blood sugar ranges Patient at visit to set up an insert Dexcom G7 with phone raad Dexcom id: Patient's cell phone number Dexcom password: [email or web address] Instructed patient sensors water proof you can shower, or swim do not submerge sensor in water for over 30 minutes Is sensor falls off cannot put back in you need to replace sensor, customer service number given to patient for sensor replacement Sensor placed on the back of Left arm Patient left visit with sensor in warmup Reviewed how to interpret trend arrows Reminded patient that to check finger sticks if symptoms do not match sensor reading. Discussed lag time between finger stick and sensor data.? Instructed patient she should always keep blood glucometer for backup testing if needed Reviewed delay of CGM from fingersticks Reminded pt that if symptoms do not match sensor still needs to check fingersticks. Introduction to Nutrition Importance of healthy diet in managing DM Diet is personalized to individual preference Review patient?s regular diet/food preferences Who prepares meals/does food shopping/ Dining out?/ Barriers? How diet effects glucose Eating 3 balanced meals a day with small, healthy snacks between meals Review food groups Carbohydrates: What is a carbohydrate/Which food/food groups are considered carbohydrates Effect of carbohydrates on blood glucose Portion sizes Reading food labels Basic carb counting (if applicable per nursing assessment) Plate method Meal planning Recommendations: Follow plate method, consistent carbs and read nutritional labels. Smart Goal: Patient will identify foods in current meal plan that contain carbohydrates by next Diabetes Education visit in 1 month Educational Materials: The patient was provided with the following written educational materials: Planning Healthy Meals Handout Patient Response to instructions: Comprehension of Instructions: Fair Readiness to make changes: Contemplation How confident they feel about making changes: Positive Portions of this note were created using voice recognition software, please excuse any words or phrases that may have been misinterpreted. Patient Instructions: Patient instruction: CGM provides information on blood glucose control throughout the day, including hyperglycemia and hypoglycemia. ? Continue to monitor blood glucose as instructed. Follow nutrition guidelines provided. Report any discomfort promptly to health care provider. ?Stay well-hydrated. You can bathe ,shower, swim and exercise while wearing the glucose sensor. Do not submerge glucose sensor in water for more than 30 minutes. Include regular daily activity. ADA recommends 30 minutes of exercise 5 days a week. Weight loss talk to PCP or Implementation Lead before starting new plan. Test blood sugar as directed; Fasting and 2hpp largest meal. Watch trends in results. Utilize results and to assess how food, physical activity and medications affect blood sugar results. Bring glucometer or CGM to next visit. Be knowledgeable about diabetes medication, its action, side effects, efficacy, toxicity, prescribed dosage, appropriate timing and frequency of administration, effect of missed and delayed doses and instructions for storage, travel and safety. Problem solving techniques to monitor hypo/hyperglycemia episodes and treatments. Reduce risk reduction behaviors, smoking cessation, regular eye, foot and dental examinations. Follow-up with rn diabetes educator in 2 weeks Coding Level of Care Code Est Pt Level 1 (03233) Diagnoses Type 2 diabetes mellitus with diabetic nephropathy, without long-term current use of insulin E11.21 Diabetes mellitus rodent exterminator insulin use: without rodent exterminator use Diabetes mellitus complication status: with kidney complications Diabetes mellitus complication detail: with nephropathy
== END 2024-12-07 16:40 | disposition home or self-care (01) ==
LOC: HO.ENCR 15:24
PROVIDERS: PCP Internal Medicine; Visit Provider Registered Nurse Diabetes Educator
DX: E11.21 Type 2 diabetes mellitus with diabetic nephropathy (principal)

== ENCOUNTER → 2024-12-07 15:24 | Outpatient (BNVA) | payer OTHER, SELFPAY | PROVIDERS: PCP Internal Medicine; Visit Provider Registered Nurse Diabetes Educator | DX: E11.21 Type 2 diabetes mellitus with diabetic nephropathy (principal) | CPT/HCPCS: 99211 ==

== ENCOUNTER 2024-12-08 14:31 | Outpatient (AMB) | payer OTHER, SELFPAY ==
--- NOTE | 2024-12-08 14:35 | MHC.OFFVIS ---
Vital Signs 12/08/24 14:38 Height 5 ft 4 in Weight 155 lb 13.869 oz BMI 26.8 BP 94/54 L Blood Pressure Location Rt brachial Position Sitting Pulse 95 Pulse Source Pulse Oximeter Pulse Oximetry (%) 94 Oxygen Delivery Method Room Air Intake Visit Reasons: T2DM Intake Note: Patient present today to follow up on Type 2 Diabetes Mellitus. Last Diabetic Eye exam: Within the year Last Podiatry Visit: Does not see a Laundry Machine Mechanic Random Glucose: 160 mg/dl HgA1C: 8.8% 11/10/2024 Ring Stamper Required: No Accompanied by: Self / Same As Patient Allergies gabapentin [From Neurontin] Allergy (Severe, Verified 12/08/24 14:39) Itching latex Allergy (Severe, Verified 12/08/24 14:39) Swelling levofloxacin [Levaquin] Allergy (Severe, Verified 12/08/24 14:39) Swelling Aspirin Allergy (Severe, Uncoded 12/08/24 14:39) Swelling Medication List - Last Reconciled 12/08/24 by Jace Holguin MD acetaminophen-codeine 300-30 mg 1 tab PO BID PRN 10 days albuterol sulfate 90 mcg/actuation 2 inhalations inhalation Q6H PRN 30 days blood sugar diagnostic (FreeStyle Lite Strips) As directed to check blood sugar 3 times daily blood-glucose meter (FreeStyle Lite Meter kit) as directed to monitor blood glucose blood-glucose meter,continuous (Dexcom G7 Employee Welfare Manager) As directed to monitor blood continuously blood-glucose sensor (Dexcom G7 Sensor device) apply new sensor every 10 days as directed budesonide-formoterol 160-4.5 mcg/actuation 2 puffs inhalation BID dklpmwpfuu-wktpcsic-rlweetbbzx 160-9-4.8 mcg/actuation (Breztri Aerosphere) 2 inhalations inhalation BID 30 days calcium carbonate-vitamin D3 600 mg-5 mcg (200 unit) 1 tab PO DAILY cetirizine (Zyrtec) 10 mg PO BID PRN cholecalciferol (vitamin D3) (Vitamin D3) 50 mcg PO DAILY clopidogrel 75 mg PO QPM cyclobenzaprine 10 mg PO BID PRN empagliflozin 25 mg PO DAILY ezetimibe 10 mg PO DAILY famotidine (Pepcid) 40 mg PO BEDTIME PRN gabapentin 300 mg PO DAILY PRN glucose (Dex4 Glucose) 16 grams (4 x 4 gram) PO Q15M PRN lancets (FreeStyle Lancets) Use to monitor blood glucose 3 times daily. loperamide (Imodium A-D) 2 mg PO BID lorazepam 0.5 mg PO BID PRN losartan 25 mg PO DAILY multivitamin 1 tab PO DAILY nitroglycerin 0.4 mg sublingual DIRECTED PRN nystatin (Nyamyc) 1 appl topical BID rosuvastatin 40 mg PO BEDTIME tiotropium bromide 2.5 mcg/actuation (Spiriva Respimat) 2 inhalations PO BID tirzepatide (Mounjaro) 2.5 mg (0.5 mL) subcut QWEEK vortioxetine 10 mg PO BEDTIME HPI Comments Details: This is a 74-year-old female with a past medical history of type 2 diabetes, CHF, CAD, hiatal hernia with GERD, lung cancer, stage II adenocarcinoma of the colon, carotid artery stenosis, COPD and pulmonary nodules presenting for diabetic management. The patient previously saw RALPH Hart on 11/10/24 She was diagnosed with diabetes 3-4 years ago. Her mother had type 2 diabetes. Current medication regimen: Mounjaro 2.5 mg Qwkly not taking and Jardiance 25 mg Dexcom download shows she is only wearing the Dexcom 1/14 days with average glucose of 159 standard deviation of 43 coefficient of variation 26.9%. A 2% range with 18% hyperglycemia Patient has never tried metformin because she is concerned about the potential side effects. Compliance issues: None Hypoglycemia symptoms: none Hyperglycemia symptoms: none Eye exam:appt < 1 [facility], no complications per patient last exam Microvascular complications: neuropathy, nephropathy (renal insufficiency) Macrovascular complications: CAD and PAD (Dr. Freitas) Hypertension: treated with losartan 25 mg Hyperlipidemia: treated with rosuvastatin 40 mg, Zetia 10 mg LDL at goal <100. Just diagnosed with ?pancreatic cancer [facility] Medical History (Updated 11/10/24 @ 15:47 by RALPH Ng) CHF (congestive heart failure) Renal insufficiency Peripheral sensory neuropathy due to type 2 diabetes mellitus Type II diabetes mellitus History of transfusion of packed red blood cells Migraine History of placement of stent in LAD coronary artery Osteoporosis Hyperlipidemia Depression CAD (coronary artery disease) Sleep apnea On anticoagulant therapy TIA (transient ischemic attack) Myocardial infarction Obesity Diabetes Dyslipidemia History of colon cancer HTN (hypertension) Carotid stenosis, asymptomatic GERD (gastroesophageal reflux disease) Colon cancer Pre-op chest exam Lung cancer Pulmonary nodules Dyspnea COPD (chronic obstructive pulmonary disease) Pulmonary nodule Surgical History History of incisional hernia repair (07/06/24) Hx of tonsillectomy Hx of tubal ligation History of dental surgery Hx of cardiac catheterization History of lobectomy of lung Family History Mother Stroke Diabetes Father Alcoholic cirrhosis of liver Social History Household Members: None Housing: House Are you a primary home health care worker to a significant other at home: No Do you presently have visiting nurse or other home services: No Patient Tobacco Use Status: Former Tobacco user Tobacco use type: Cigarette Years Smoked: 20+ Years Second Hand Smoke Exposure: No service: No Physical Exam Vital Signs: Last Vital Signs Pulse 95 12/08/24 14:38 BP 94/54 L 12/08/24 14:38 Pulse Ox 94 12/08/24 14:38 Oxygen Delivery Method Room Air 12/08/24 14:38 BMI result Body Mass Index 26.8 Absence of Cushingoid features. Absence of acromegalic features. Neck exam reveals nl size thyroid about 15 gms. No thyroid nodules palpable. No carotid bruits present. Lungs CTA. Heart S1 S2, Reg R/R. No M/R/ G. Skin exam reveals absence of vitiligo or acanthosis nigricans. Abdominal exam reveals Soft NT/ND with NA BS. No organomegaly present. Neck Other: . Extrem Other: Visual exam of foot performed. No ulcerations or open lesions. No onchomycosis, no callouses.Pulses 2 + distally Sensation intact to monofilament exam. Vibratory sensation sensed is decresed with 128 Hz tuning fork Assessment & Plan Assessment & Plan (1) Type II diabetes mellitus: Code(s): E11.9 - Type 2 diabetes mellitus without complications Category: Medical Qualifiers: Diabetes mellitus complication detail: with nephropathy Diabetes mellitus complication status: with kidney complications Diabetes mellitus oil heaterman insulin use: without retirement use Qualified Code(s): E11.21 - Type 2 diabetes mellitus with diabetic nephropathy Plan: 74-year-old white female with a history of type 2 diabetes being treated with Mounjaro and Jardiance poor glycemic control and known microvascular and macrovascular complications namely CAD and PAD. as well as neuropathy and CKD. Patient stated that she was just diagnosed with a pancreatic mass? Pancreatic cancer Plan is to talk to the patient about wearing the sensor more of the time. There is limited data available today's visit but would have the patient with a sensor for the full 10 days to get a better idea of where the elevated glucose is like.. A1c goal should be about 7.5-8%. In light of the pancreatic abnormality and increased A1c, may need prandial insulin once we have more information We will also have patient go for lipid profile and microalbumin to creatinine ratio as ordered by Ms. Bobby . Went over correlation of poor glycemic control with development and progression of complications Medications: New lancets (OneTouch UltraSoft 2 Lancet) As directed checks 3 X/day 100 ea 5RF blood sugar diagnostic (OneTouch Ultra Test strips) As directed tests 3 X/day 100 ea 0RF blood-glucose meter (OneTouch Ultra2 Meter) As directed checks 3X/day 1 ea 0RF Discontinued lancets (FreeStyle Lancets) Discontinued Reason: Doctor's Order Use to monitor blood glucose 3 times daily. 100 ea 5RF E11.21 - Type 2 diabetes mellitus with diabetic nephropathy Coding Level of Care Code Est Pt Level 4 (65674) Diagnoses Type 2 diabetes mellitus with diabetic nephropathy, without long-term current use of insulin E11.21 Diabetes mellitus complication detail: with nephropathy Diabetes mellitus complication status: with kidney complications Diabetes mellitus oil heaterman insulin use: without retirement use
[2024-12-08 14:38] VITALS: BP 94/54; PULSE 95; O2SAT 94; BMI 26.8
[2024-12-08 15:32] LABS: Glucose, Whole Blood 160 mg/dL (60-115)
--- OUTSIDE RECORDS SUMMARY | 2024-12-08 18:11 | XMS_ITS | Encounter Summary ---
Author Organization [facility] [place] [address] Care Team Providers Care Allergy Nurse Name Role Phone Jung Carranza MD Primary Care Provider [phone]- [phone] Reason for Visit * Reason Onset Date Comments Anticoagulation 11/23/[address] Camarena Encounter Details Date Type Department Care Team (Late st Contact Info) Description 11/23/2024 Telephone Gastroenterology - [place] [address] [place] [address] Pily Tapia LPN Anticoagulation (Colonoscopy on 12/17/[address] Camarena) Social History Tobacco Use Types Packs/Day Years [...] as of this encounter Progress Notes * Pily Tapia LPN - 12/07/2024 12:49 PM EDT Pt notified. Letter mailed. * Pily Tapia LPN - 12/07/2024 11:[address] Freitas at [facility], ok to hold plavix for 5 days before procedure. Left msg for pt to call back. * Pily Tapia LPN - 12/04/2024 11:02 AM EDT Spoke with Yehuda at [facility], she will send msg to provider again. * Pily Tapia LPN - 12/01/2024 11:18 AM EDT Called to [facility], msg sent to provider. * Pily Tapia LPN - 11/23/2024 4:06 PM EDT Colonoscopy on 12/17/[address] Camarena, can pt hold plavix for 5 days before procedure? Spoke with [facility]. Faxed req to them at [phone] documented in this encounter Plan of Treatment Upcoming Encounters Date Type Department Care Team (Late st Contact Info) Description 12/17/2024 9:30 AM EDT Hospital Encounter [facility] Endoscopy [address] [place] [address] Valente Camarena MD [address] [address] 01/13/2025 2:15 PM EDT Office Visit [facility] Hematology Oncology [address] [place] [address] Subramonia-Carmen Ray MD [address] [place] [id number] documented as of this encounter Visit Diagnoses Not on filedocumented in this encounter Care Teams Allergy Nurse Relationship Specialty Start Date End Date Jung Carranza MD [address] [place] [address] Rd [address] [place], [place] PCP - General Internal Medicine 12/08/18 documented as of this encounter
--- OUTSIDE RECORDS SUMMARY | 2024-12-08 18:11 | XMS_ITS | Clinical Summary ---
Author Organization [facility] Address [address] [place] [address] Care Team Providers Care Sample Builder Name Role Phone Jung Carranza MD Primary Care Provider [phone]- [phone] Allergies Active Allergy Reactions Criticality Noted Date [...] age to complete this topic Care Teams Sample Builder Relationship Specialty Start Date End Date Jung Carranza MD [address] [place] [address] PCP - General Internal Medicine 02/12/24
--- OUTSIDE RECORDS SUMMARY | 2024-12-08 18:11 | XMS_ITS | Clinical Summary ---
Author Organization [facility] Address [address] [place] [address] Phone Care Team Providers Care Embossing Toolsetter Name Role Phone Jung Carranza MD Primary Care Provider +1- [phone] Allergies Active Allergy Reactions Criticality Noted Date Comments Aspirin 08/12/2017 Latex 08/12/2017 Levofloxacin 08/12/2017 Medications calcium carbonate/vitam in D3 (CALCIUM + D ORAL) Take by mouth. Activ e clopidogreL (PLAVIX) 75 mg tablet Take 1 [...] (ZyrTEC) 10 mg capsule Take by mouth. Activ e Jardiance 25 mg tablet Take 1 tablet (25 mg total) by mouth 1 (one) time each day. Active Rybelsus 7 mg tablet Take 1 tablet (7 mg total) by mouth 1 (one) time each day before breakfast. 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 60 tablet 6 5 Active polyethylene glycol (Golytely) 236-22.74-6.74 -5.86 gram solution Take 4L by mouth once for one dose. May substitue any PEG. Starting at 6PM the night before your procedure drink 1 8oz glasses at your own pace until you complete half of the gallon. Finish 2nd half of the gallon 5 hours before your procedure. 4000 mL 5 Active bisacodyL (DULCOLAX) 5 mg EC tablet Take 2 tablets by mouth right before beginning bowel prep. See instructions provided by the office 2 tablet 5 Active rosuvastatin (CRESTOR) 40 mg tablet 5 Active Trintellix 10 mg tablet 5 Active Active Problems Problem Noted Date Diagnosed Date Asthma-COPD overlap syndrome 11/06/2017 COPD (chronic obstructive pulmonary disease) Gastroesophageal reflux 11/06/2017 Hiatal hernia 11/06/2017 Hyperlipidemia 11/06/2017 Pulmonary nodules 11/06/2017 Encounters Date Type Department Care Team Description 12/08/2024 8:45 AM EDT Consult General Surgery - [place] [address] [facility] [address] [place] [address] Diogenes Medrano MD Pancreatic mass 12/02/2024 Telephone [facility] Hematology Oncology [address] [place] [address] Thiago-Carmen Lofton MD Appointment 11/27/2024 2:37 PM EDT - 11/27/2024 11:59 PM EDT Hospital Encounter [facility] CT Scan [address] [place] [address] Pulmonary nodules; Overlapping malignant neoplasm of colon (CMS/HCC) Discharge Disposition: Home or Self Care 11/23/2024 Telephone Gastroenterology [facility] [address] [facility] [facility] [address] [place] [address] Pily Tapia LPN Anticoagulation (Colonoscopy on 12/17/[address] Camarena) 11/05/2024 Telephone [facility] Hematology Oncology [address] [place] [address] Carmen Mcneill MD 10/29/2024 1:20 PM EST Consult Gastroenterology - [place] [address] [facility] [address] [place] [address] Thomas Baron PA Gastroesophageal reflux disease without esophagitis (Primary Dx); H/O: lung cancer; H/O malignant neoplasm of colon; History of acute anterior wall myocardial infarction; Diabetes 1.5, managed as type 2 (CMS/HCC); Hernia of abdominal wall; Epigastric pressure; Hiatal hernia 10/02/2024 3:57 PM EST - 10/02/2024 5:01 PM EST Emergency [facility] Emergency [address] [place] [address] Contusion of coccyx, initial encounter (Primary Dx) Discharge Disposition: Home or Self Care from Last 3 Months Immunizations Name Administration Dates Next Due ReDent Nova (ages 12 & older) MENG S-CoV-2 COVID-19, [...] disease) DX:GERD (gastroesophageal reflux disease) Colon cancer ([facility]) DX:Colon cancer (HCC) Diabetes mellitus ([facility]) DX:D iabetes mellitus ([facility]) Social History Tobacco Use Types Packs/Day Years [...] Sign Reading Time Taken Comments Blood Pressure 90/57 12/08/2024 8:37 AM EDT Pulse 90 12/08/2024 8:37 AM EDT Temperature 36.3 ??C (97.3 ??F) 10/02/2024 2:00 PM ES T Respiratory Rate 16 10/29/2024 1:25 PM EST Oxygen Saturation 97% 10/29/2024 1:25 PM EST Inhaled Oxygen Concentration - - Weight 70.4 kg (155 lb 3.2 oz) 12/08/2024 8:37 A M EDT Height 162.6 cm (5' 4 ) 12/08/2024 8:37 AM EDT Body Mass Index 26.64 12/08/2024 8:37 AM EDT Plan of Treatment Upcoming Encounters Date Type Department Care Team (Late st Contact Info) Description 12/17/2024 9:30 AM EDT Hospital Encounter [facility] Endoscopy [address] [place] [phone] Valente Camarena MD [address] [address] 01/13/2025 2:15 PM EDT Office Visit [facility] Hematology Oncology [address] [place] [address] Carmen Felix MD [address] [place] [address] Health Maintenance Due Date Last Done Comments Breast Cancer Screening 1950 Diabetes: Annual Foot Exam 02/29/1960 Diabetes: Annual Retina Eye Exam 02/29/1960 Zoster Vaccines (1 of 2) 1969 DTaP,Tdap,and Td Vaccines (2 - Td or Tdap) 09/16/2015 09/16/2005 COVID-19 Vaccine () 05/17/2024 10/22/2023, 06/27/2022, 02/06/2022, Additional history exists Cholesterol [...] Procedure Name Priority Date/Time Associated Diagnosis Comments CT CHEST/ABDOMEN/PELVIS W CONTRAST Routine 11/27/2024 3:17 PM EDT Pulmonary nodules Overlapping malignant neoplasm of colon (CMS/HCC) CBC WITH AUTO DIFFERENTIAL Routine 10/29/2024 2:23 [...] EST from Last 3 Months Results * CT Chest/Abdomen/Pelvis w Contrast (11/27/2024 3:17 PM EDT) Anatomical Region Laterality Modality Body Computed Tomogra phy 11/30/2024 9:26 AM EDT Impressions 11/30/2024 9:34 AM EDT Left upper lobectomy, right upper lobe segmentectomy, and right hemicolectomy. ??No metastatic disease in the chest, abdomen, or pelvis. Pancreatic tail mass suspicious for primary pancreatic neoplasm. Old apicoseptal left ventricular myocardial infarction. -------- FINAL REPORT -------- Dictated By: DREW VILLATORO Dictated Date: 11/30/2024 09:26 ET Assigned Physician: DREW VILLATORO Reviewed and Electronically Signed By: DREW VILLATORO Signed Date: 11/30/2024 09:34 ET Workstation ID: [id number] Transcribed By: Self Edit Transcribed Date: 11/30/2024 09:26 ET Narrative 11/30/2024 9:34 AM EDT PROCEDURE: Chest, abdomen, and pelvis CT INDICATION: Colon cancer, lung cancer, restaging TECHNIQUE: Chest, abdomen and pelvis CT following the intravenous administration of 90cc ISOVUE-370. Multiplanar reformats were created and interpreted. The examination was performed utilizing dose reduction techniques. ??Total DLP 639 COMPARISON: ??No priors available. FINDINGS: ?? CT CHEST: LUNGS/PLEURA: Left upper lobectomy and right upper lobe segmentectomy. ??Emphysema. ??2 mm left lower lobe nodule. ??No suspicious pulmonary nodules. ??Mild multifocal atelectasis/scarring. ??No pleural effusion or pneumothorax. MEDIASTINUM: Thyroid gland is normal. ??No mediastinal or hilar lymphadenopathy. ??Moderate hiatal hernia containing the gastric fundus. ??Wall thinning at the left ventricular septum and apex indicative of old myocardial infarction. ??Cardiac chambers are normal in size. ??No pericardial effusion. ??Coronary calcifications and left anterior descending arterial stents. ??No central pulmonary arterial emboli. ??Thoracic aorta is normal in size. CHEST WALL: No axillary lymphadenopathy or superficial hematoma. BONES: No suspicious lytic or blastic lesions. Scattered degenerative changes seen throughout the bones. ??Chronic fracture deformity at the T10 vertebral body with less than 25% height loss. ??No acute fracture. CT ABDOMEN AND PELVIS: HEPATOBILIARY: Scattered subcentimeter cysts. ??No suspicious liver lesions. ??Gallbladder and biliary tree are within normal limits. SPLEEN: No splenomegaly. PANCREAS: Pancreatic tail mass measures 38 x 21 mm. ADRENALS: No nodules. KIDNEYS/URETERS: No solid renal mass or hydronephrosis. ??Peripelvic cysts bilaterally. ??Left posterior calyceal diverticulum with internal calcification layering dependently. ??No ureteral calculi. PELVIC ORGANS/BLADDER: Uterus and bladder are within normal limits. ??No adnexal mass. PERITONEUM / RETROPERITONEUM: No ascites or free air. No retroperitoneal lymphadenopathy. VESSELS: Portal vein is patent. ??Abdominal aorta is ectatic measuring up to 24 mm GI TRACT: Right hemicolectomy. ??Colonic diverticulosis. ??No bowel obstruction or wall thickening. BONES AND SOFT TISSUES: Postsurgical changes along the ventral abdominal wall. ??No hernia or superficial soft tissue mass. ??No suspicious lytic or blastic lesions. ??Mild degenerative changes seen throughout the bones. ??Levoconvex thoracolumbar curvature. Procedure Note Drew Villatoro MD - 11/30/2024 PROCEDURE: Chest, abdomen, and pelvis CT INDICATION: Colon cancer, lung cancer, restaging TECHNIQUE: Chest, abdomen and pelvis CT following the intravenousadministration of 90cc ISOVUE-370. Multiplanar reformats were created andinterpreted. The examination was performed utilizing dose reductiontechniques. Total DLP 639 COMPARISON: No priors available. FINDINGS: CT CHEST: LUNGS/PLEURA: Left upper lobectomy and right upper lobe segmentectomy.Emphysema. 2 mm left lower lobe nodule. No suspicious pulmonary nodules.Mild multifocal atelectasis/scarring. No pleural effusion orpneumothorax. MEDIASTINUM: Thyroid gland is normal. No mediastinal or hilarlymphadenopathy. Moderate hiatal hernia containing the gastric fundus.Wall thinning at the left ventricular septum and apex indicative of oldmyocardial infarction. Cardiac chambers are normal in size. Nopericardial effusion. Coronary calcifications and left anteriordescending arterial stents. No central pulmonary arterial emboli.Thoracic aorta is normal in size. CHEST WALL: No axillary lymphadenopathy or superficial hematoma. BONES: No suspicious lytic or blastic lesions. Scattered degenerativechanges seen throughout the bones. Chronic fracture deformity at the X13ocvmtkhmp body with less than 25% height loss. No acute fracture. CT ABDOMEN AND PELVIS: HEPATOBILIARY: Scattered subcentimeter cysts. No suspicious liverlesions. Gallbladder and biliary tree are within normal limits. SPLEEN: No splenomegaly. PANCREAS: Pancreatic tail mass measures 38 x 21 mm. ADRENALS: No nodules. KIDNEYS/URETERS: No solid renal mass or hydronephrosis. Peripelvic cystsbilaterally. Left posterior calyceal diverticulum with internalcalcification layering dependently. No ureteral calculi. PELVIC ORGANS/BLADDER: Uterus and bladder are within normal limits. Noadnexal mass. PERITONEUM / RETROPERITONEUM: No ascites or free air. No retroperitoneallymphadenopathy. VESSELS: Portal vein is patent. Abdominal aorta is ectatic measuring upto 24 mm GI TRACT: Right hemicolectomy. Colonic diverticulosis. No bowelobstruction or wall thickening. BONES AND SOFT TISSUES: Postsurgical changes along the ventral abdominalwall. No hernia or superficial soft tissue mass. No suspicious lytic orblastic lesions. Mild degenerative changes seen throughout the bones.Levoconvex thoracolumbar curvature. IMPRESSION: Left upper lobectomy, right upper lobe segmentectomy, and righthemicolectomy. No metastatic disease in the chest, abdomen, or pelvis. Pancreatic tail mass suspicious for primary pancreatic neoplasm. Old apicoseptal left ventricular myocardial infarction. -------- FINAL REPORT -------- Dictated By: DREW VILLATORO Dictated Date: 11/30/2024 09:26 ET Assigned Physician: DREW VILLATORO Reviewed and Electronically Signed By: DREW VILLATORO Signed Date: 11/30/2024 09:34 ET Workstation ID: [id number] Transcribed By: Self Edit Transcribed Date: 11/30/2024 09:26 ET Carmen Felix MD IMPercy CT PROCEDURES F inal Result * (ABNORMAL) CBC auto differential (10/29/2024 2:23 PM EST) [facility] WBC 7.7 4.8 - 10.8 K/mcL LAB HEMETOLOGY METHOD 10/29/2024 6:[address] [facility] RBC 4.90(H) 3.80 - 4.80 M/mcL LAB HEMETOLOGY METHOD 10/29/2024 6:[address] [facility] Hemoglobin 14.7 11.5 - 16.0 g/dL LAB HEMETOLOGY METHOD 10/29/2024 6:[address] [facility] Hematocrit 45.0 35.0 - 47.0 % LAB HEMETOLOGY METHOD 10/29/2024 6:[address] [facility] MCV 91.3 79.0 - 98.0 FL LAB HEMETOLOGY METHOD 10/29/2024 6:[address] [facility] MCH 29.8 27.0 - 32.0 pcg LAB HEMETOLOGY METHOD 10/29/2024 6:[address] [facility] MCHC 32.7 32.0 - 37.0 g/dL LAB HEMETOLOGY METHOD 10/29/2024 6:[address] [facility] RDW 13.2 11.0 - 15.0 % LAB HEMETOLOGY METHOD 10/29/2024 6:[address] [facility] Platelets 235 130 - 400 K/mcL LAB HEMETOLOGY METHOD 10/29/2024 6:[address] [facility] MPV 10.0 7.0 - 11.0 FL LAB HEMETOLOGY METHOD 10/29/2024 6:[address] [facility] NRBC 0.0 <1.0 % LAB HEMETOLOGY METHOD 10/29/2024 6:[address] [facility] NRBC Absolute 0.00 <0.10 K/mcL LAB HEMETOLOGY METHOD 10/29/2024 6:[address] [facility] Neutrophils Relative 69.4 % LAB HEMETOLOGY METHOD 10/29/2024 6:[address] [facility] Lymphocytes Relative 17.3 % LAB HEMETOLOGY METHOD 10/29/2024 6:[address] [facility] Monocytes Relative 8.9 % LAB HEMETOLOGY METHOD 10/29/2024 6:[address] [facility] Eosinophils Relative 3.5 % LAB HEMETOLOGY METHOD 10/29/2024 6:[address] [facility] Basophils Relative 0.5 % LAB HEMETOLOGY METHOD 10/29/2024 6:[address] [facility] Immature Granulocytes Relative 0.4 % LAB HEMETOLOGY METHOD 10/29/2024 6:[address] [facility] Neutrophils Absolute 5.32 1.50 - 7.00 K/mcL LAB HEMETOLOGY METHOD 10/29/2024 6:[address] [facility] Lymphocytes Absolute 1.33 1.00 - 5.00 K/mcL LAB HEMETOLOGY METHOD 10/29/2024 6:[address] [facility] Monocytes Absolute 0.68 0.20 - 1.00 K/mcL LAB HEMETOLOGY METHOD 10/29/2024 6:[address] [facility] Eosinophils Absolute 0.27 0.00 - 0.50 K/mcL LAB HEMETOLOGY METHOD 10/29/2024 6:[address] [facility] Basophils Absolute 0.04 0.00 - 0.20 K/mcL LAB HEMETOLOGY METHOD 10/29/2024 6:[address] [facility] Immature Granulocytes Absolute 0.03 0.00 - 0.03 K/mcL LAB HEMETOLOGY METHOD 10/29/2024 6:[address] [facility] Blood Venous blood specimen / Unknown Venipuncture / Unknown 10/29/2024 2:23 PM EST 10/29/2024 2:23 PM EST us Thomas ROSAS LAB BLOOD ORDERABLES Final Resu lt [facility] [address] [place] [address], * (ABNORMAL) Comprehensive metabolic panel (10/29/2024 2:23 PM EST) Sodium 139 133 - 145 mmol/L LAB CHEMISTRY METHOD 10/29/2024 6:[address] [facility] Potassium 4.2 3.5 - 5.5 mmol/L LAB CHEMISTRY METHOD 10/29/2024 6:[address] [facility] Chloride 107 96 - 110 mmol/L LAB CHEMISTRY METHOD 10/29/2024 6:[address] [facility] CO2 27 21 - 32 mmol/L LAB CHEMISTRY METHOD 10/29/2024 6:[address] [facility] Anion Gap 5 3 - 11 LAB CHEMISTRY METHOD 10/29/2024 6:[address] [facility] Glucose 163(H) 70 - 100 mg/dL LAB CHEMISTRY METHOD 10/29/2024 6:[address] [facility] BUN 19 5 - 25 mg/dL LAB CHEMISTRY METHOD 10/29/2024 6:[address] [facility] Creatinine 1.02 0.50 - 1.10 mg/dL LAB CHEMISTRY METHOD 10/29/2024 6:[address] [facility] eGFR 58(L) >=60 mL/min/1. 73m2 LAB CHEMISTRY METHOD 10/29/2024 6:[address] [facility] Comment:Calculation based on the??Chronic Kidney Disease Epidemiology Collaboration (CKD-EPI) equation refit??without adjustment for race. BUN/Creatinine Ratio 18.6 LAB CHEMISTRY METHOD 10/29/2024 6:[address] [facility] Calcium 9.4 8.5 - 10.5 mg/dL LAB CHEMISTRY METHOD 10/29/2024 6:[address] [facility] AST (SGOT) 33 10 - 42 unit/L LAB CHEMISTRY METHOD 10/29/2024 6:[address] [facility] ALT (SGPT) 46 10 - 60 unit/L LAB CHEMISTRY METHOD 10/29/2024 6:[address] [facility] Alkaline Phosphatase 99 42 - 121 unit/L LAB CHEMISTRY METHOD 10/29/2024 6:[address] [facility] Total Protein 6.8 6.0 - 8.0 g/dL LAB CHEMISTRY METHOD 10/29/2024 6:[address] [facility] Albumin 4.0 3.2 - 5.0 g/dL LAB CHEMISTRY METHOD 10/29/2024 6:[address] [facility] Total Bilirubin 1.7(H) 0.0 - 1.4 mg/dL LAB CHEMISTRY METHOD 10/29/2024 6:[address] [facility] Blood Venous blood specimen / Unknown Venipuncture / Unknown 10/29/2024 2:23 PM EST 10/29/2024 2:23 PM EST us Thomas ROSAS LAB BLOOD ORDERABLES Final Resu lt [facility] [address] [place] [address], * XR Sacrum Coccyx 2+ Views (10/02/2024 [...] Signed Date: 10/02/2024 16:25 ET Workstation ID: [id number] Transcribed By: Self Edit Transcribed Date: 10/02/2024 [...] Signed Date: 10/02/2024 16:25 ET Workstation ID: [id number] Transcribed By: Self Edit Transcribed Date: 10/02/2024 [...] Signed Date: 10/02/2024 16:32 ET Workstation ID: [id number] Transcribed By: Self Edit Transcribed Date: 10/02/2024 16:25 ET Narrative 10/02/2024 4:32 PM EST XR LUMBAR SPINE 2-3 VIEWS INDICATION: ??Pain TECHNIQUE: XR LUMBAR SPINE 2-3 VIEWS COMPARISON: No priors available. Procedure Note Drew Villatoro MD - 10/02/2024 XR LUMBAR SPINE 2-3 VIEWS INDICATION: Pain TECHNIQUE: XR LUMBAR SPINE 2-3 VIEWS COMPARISON: No priors available. IMPRESSION: FINDINGS/IMPRESSION: Transitional lumbosacral anatomy with sacralized X0pxemovmto body. Levoconvex thoracolumbar scoliosis centered at L2. Nofracture. Disc space heights are relatively preserved. Advanced lowerlumbar facet arthritis. Arterial calcifications. Calcificationsoverlying the left kidney may represent nonobstructive calculi. Pelvicphleboliths noted. -------- FINAL REPORT -------- Dictated By: DREW VILLATORO Dictated Date: 10/02/2024 16:25 ET Assigned Physician: DREW VILLATORO Reviewed and Electronically Signed By: DREW VILLATORO Signed Date: 10/02/2024 16:32 ET Workstation ID: [id number] Transcribed By: Self Edit Transcribed Date: 10/02/2024 16:25 ET us Joseph Owusu MD IMG XR PROCEDURES Final Res ult from Last 3 Months Insurance [employer] MEDICARE Care Teams Embossing Toolsetter Relationship Specialty Start Date End Date Jung Carranza MD [address] [place], [place] PCP - General Internal Medicine 12/08/18
--- OUTSIDE RECORDS SUMMARY | 2024-12-08 18:11 | XMS_ITS | Encounter Summary ---
Author Organization [facility] Address [address] [place] [address] Care Team Providers Care Mortgage Sales Manager Name Role Phone Jung Carranza MD Primary Care Provider [phone]- [phone] Reason for Referral * Consultation (Routine) - Authorized Specialty Diagnoses / Procedures Referred By Lane anderson Referred To Contact General Surgery Diagnoses Pancreatic mass Carmen Felix MD [address] [place] [phone] Phone: tel: fax: Diogenes Medrano MD [address] [place] [address] / fax [phone] [place] [address] Phone: tel: fax: Referral ID Status Reason Start Date Expiration Date Visits Requested Visits Authorized [id number] Authorized Specialty Services Required 12/02/2024 12/02/2025 1 1 * Imaging (Routine) - Pending Review Specialty Diagnoses / Procedures Referred By Lane anderson Referred To Contact Radiology Diagnoses Pancreatic mass Primary cancer of pancreatic duct (CMS/HCC) Procedures PET CT Skull to Mid Thigh Initial Carmen Felix MD [address] [place] [address] Phone: tel: fax: [address] [address] Phone: tel: Referral ID Status Reason Start Date Expiration Date V isits Requested Visits Authorized [id number] Pending Review 12/02/2024 12/02/2025 1 1 Reason for Visit * Reason Onset Date Comments Appointment 12/02/2024 Encounter Details Date Type Department Care Team (Late st Contact Info) Description 12/02/2024 Telephone [facility] Hematology Oncology [address] [place] [address] Carmen Felix MD [address] [place] [address] Appointment Social History Tobacco Use Types Packs/Day Years [...] as of this encounter Progress Notes * Meenu Landon - 12/08/2024 9:42 AM EDT Insurance request for PET has gone into review. Requiring a peer to peer. Reasoning for possible denial: Insurance only allows surveillance pet scans only Patient is not currently on any treatment Only an initial staging pet and a treatment pet are allowed under this plan They are unsure if this is a new primary or old cancer diagnosis After submitting all additional documentation, a peer to peer is required. PEER TO PEER SCHEDULED FOR 12/09/24 @11:45AM * Carmen Felix MD - 12/02/2024 1:12 PM EDT I called and discussed with the patient regarding the results from the recent CT scan, that demonstrated a 3.8 cm pancreatic mass. I recommend consultation with a pancreaticobiliary surgeon, I will send a referral to Dr. Diogenes Medrano. Patient is agreeable for the referral. She is quite anxious, I offered to send an antianxiety medication, but she has lorazepam available for now. She may need a PET CT scan for further workup of the lesion and I will order it today. documented in this encounter Plan of Treatment Upcoming Encounters Date Type Department Care Team (Late st Contact Info) Description 12/17/2024 9:30 AM EDT Hospital Encounter [facility] Endoscopy [address] [place] [address] Valente Camarena MD [address] [address] 01/13/2025 2:15 PM EDT Office Visit [facility] Hematology Oncology [address] [place] [address] Carmen Felix MD [address] [place] [address] Scheduled Orders Name Type Priority Associated Diagnoses Orde r Schedule PET CT Skull to Mid Thigh Initial Imaging Routine Pancreatic mass Primary cancer of pancreatic duct (CMS/HCC) Expected: 12/09/2024, Expires: 12/02/2025 Scheduled Referrals Name Type Priority Associated Diagnoses Order Schedule Ambulatory referral to General Surgery Outpatient Referral Routine Pancreatic mass Expected: 12/09/2024, Expires: 12/02/2025 documented as of this encounter Visit Diagnoses Diagnosis Pancreatic mass- Primary Unspecified disease of pancreas Primary cancer of pancreatic duct (CMS/HCC) documented in this encounter Care Teams Mortgage Sales Manager Relationship Specialty Start Date End Date Jung Carranza MD [address] [place] [address] Rd [address] [place], [place] PCP - General Internal Medicine 12/08/18 documented as of this encounter
--- OUTSIDE RECORDS SUMMARY | 2024-12-08 18:11 | XMS_ITS | Encounter Summary ---
Author Organization [facility] Address [address] [place] [address] Care Team Providers Care Emergency Medical Service Coordinator Name Role Phone Jung Carranza MD Primary Care Provider [phone]- [phone] Reason for Visit * Reason Comments Mass * Consultation (Routine) - Authorized Specialty Diagnoses / Procedures Referred By Lane anderson Referred To Contact General Surgery Diagnoses Pancreatic mass Thiago-Carmen Ray MD [address] [place] [address] Phone: tel: fax: Diogenes Foster MD 175 [facility] 110 / fax [phone] to 175 [place] [address] Phone: tel: fax: Referral ID Status Reason Start Date Expiration Date Visits Requested Visits Authorized [id number] Authorized Specialty Services Required 12/02/2024 12/02/2025 1 1 Encounter Details Date Type Department Care Team (Late st Contact Info) Description 12/08/2024 8:45 AM EDT Consult General Surgery - [place] [address] [address] Diogenes Foster MD 175 [facility] [place] 110 / fax [phone] to 175 [place] [address] Pancreatic mass Social History Tobacco Use Types Packs/Day Years [...] Pulse 90 12/08/2024 8:37 AM EDT Temperature - - Respiratory Rate - - Oxygen Saturation - - Inhaled Oxygen Concentration - - Weight 70.4 kg (155 lb 3.2 oz) 12/08/2024 8:37 A M EDT Height 162.6 cm (5' 4 ) 12/08/2024 8:37 AM EDT Body Mass Index 26.64 12/08/2024 8:37 AM EDT documented in this encounter Progress Notes * Diogenes Foster MD - 12/08/2024 8:45 AM EDT REFERRING PROVIDER: Seven Felix* REASON FOR VISIT: pancreas mass HPI: This is a very pleasant 74 y.o.-year-old female who presents for consultation regarding newly discovered pancreas mass. The patient is accompanied in the office by her daughter. Patient has a past history of colon cancer and 2 separate lung cancers treated with surgical resection. She has been freeof recurrent disease but on recent imaging was noted to have a mass within the tail of the pancreasconcerning for malignancy. Because of a change in her insurance, she was referred to see Dr. Ray in medical oncology at [facility]. Prior to that visit he received the CT results showing the pancreatic mass and referral was placed for surgical evaluation for possible curative intent treat ment. Patient states that overall she has been doing well. She does have chronic GI symptoms with discomfort after eating and drinking for which she takes Tums and simethicone with some relief. He denies any new abdominal pain or back pain. She denies any weight loss. She denies any jaundice, dark urine or acholic stools. She denies any prior history of pancreatitis. Patient does have diabetes and she states it is currently not that well controlled. She did recently stop one of her oral hypoglycemicsbecause she thinks it may have caused her pancreas cancer. She is scheduled to see an pick up driver later today. Her grandmother did have pancreas cancer and of it at age 92. Patient did undergo ventral hernia repair with mesh placement at [facility] during the last year. She is doing well from that standpoint. Patient has COPD which is stable and she takes daily inhalers and is followed by pulmonology. She can walk up a flight of stairs but needs to rest a bit at the top. She denies any chest pain. She did have she denies any chest pain. She did have an MA at age 50 and had a cardiac stent placed and is on Plavix. She does have nitroglycerin which she has not needed to use. She was recently seen for evaluation of her carotids which she states were stable and no intervention was recommended. She denies any TIA or stroke symptoms. ROS The following symptom list was reviewed with the patient: GENERAL: fevers, chills, sweats, change in weight, fatigue or malaise HEENT: changes in hearing or vision, nasal problems NECK: lumps, goiter, or significant neck swelling RESPIRATORY: cough, wheezing, shortness of breath, pleuritic chest pain CARDIOVASCULAR: chest pain, leg swelling or palpitations GI: abdominal discomfort, blood in stools or black stools : dysuria, frequency or incontinence MUSCULOSKELETAL: joint pain or swelling, back pain, or muscle pain SKIN: lesions, rash or itching PSYCH: sleep disturbance or depression HEMATOLOGY: prolonged bleeding, easy bruisability or swollen nodes ENDOCRINE: cold or heat intolerance, polyuria, polydipsia or goiter NEURO: persistent headache, syncope, seizures, weakness or numbness The patient reported the following as positive: As per HPI; PAST MEDICAL HISTORY: I personally reviewed the following past medical history with the patient and updated the records as appropriate. Past Medical History: Diagnosis Date Asthma 11/06/2017 DX:Asthma Asthma-COPD overlap syndrome (CMS/HCC) 11/06/2017 DX:Asthma-COPD overlap syndrome (HCC) Colon cancer (CMS/HCC) DX:Colon cancer (HCC) COPD (chronic obstructive pulmonary disease) (CMS/HCC) 11/06/2017 DX:COPD (chronic obstructive pulmonary disease) (HCC) COPD (chronic obstructive pulmonary disease) ([facility]/HCC) DX:COPD (chronic obstructive pulmonary disease) (HCC) Diabetes mellitus ([facility]/HCC) DX:Diabetes mellitus (HCC) Gastroesophageal reflux 11/06/2017 DX:Gastroesophageal reflux GERD (gastroesophageal reflux disease) DX:GERD (gastroesophageal reflux disease) Hiatal hernia 11/06/2017 DX:Hiatal hernia History of lung cancer 11/06/2017 DX:History of lung cancer; COMMENT: X2, s/p resection Hyperlipidemia 11/06/2017 DX:Hyperlipidemia Lung cancer ([facility]) DX:Lung cancer (HCC) Pulmonary nodules 11/06/2017 DX:Pulmonary nodules PAST SURGICAL HISTORY: I personally reviewed the following past surgical history with the patient and updated the records as appropriate. Past Surgical History: Procedure Laterality Date COLON SURGERY PROCEDURE:COLON SURGERY LUNG SURGERY PROCEDURE:LUNG SURGERY OTHER SURGICAL HISTORY PROCEDURE: ---- OTHER ----; COMMENT: lung resection for cancer x2 SOCIAL HISTORY: I personally reviewed the following social history with the patient and updated the records as appropriate. Social History Socioeconomic History Marital status: Spouse name: Not on file Number of children: Not on file Years of education: Not on file Highest education level: Not on file Occupational History Not on file Tobacco Use Smoking status: Former Current packs/day: 1.50 Types: Cigarettes Smokeless tobacco: Never Substance and Sexual Activity Alcohol use: Not Currently Drug use: Never Sexual activity: Not on file Other Topics Concern Not on file Social History Narrative Not on file FAMILY HISTORY: I personally reviewed the following family medical history with the patient and updated the recordsas appropriate. Grandmother with pancreas cancer (age 92) ACTIVE MEDICATIONS: Medication list was reviewed/updated with the patient. No outpatient medications have been marked as taking for the 12/08/24 encounter (Consult) with Diogenes Foster MD. Albuterol HFA inhaler Calcium+D Zyrtec Plavix Jardiance Eszopiclone Zetia Ativan Losartan Mvi Zofran Rybelsus - on hold ALLERGIES: Allergies Allergen Reactions Aspirin Latex Levofloxacin PHYSICAL EXAM: Visit Vitals BP 90/57 Pulse 90 Ht 1.626 m (64 ) Wt 70.4 kg (155 lb 3.2 oz) BMI 26.64 kg/m?? Smoking Status Former BSA 1.76 m?? GENERAL: Awake, alert, and in no acute distress. HEAD: Normocephalic, atraumatic. EYES: Pupils equal and round. Anicteric sclera. Conjunctiva normal. NECK: Thyroid midline and without goiter, nodule, tenderness, or mass. No appreciable adenopathy. CHEST: Non-tender. LUNGS: Clear to auscultation bilaterally without wheezing, rales, or rhonchi. CARDIAC: RRR, normal S1/S2, no appreciable murmur. ABDOMEN: Soft, non-tender, non-distended. No appreciable mass. No organomegaly. No ventral or umbilical hernia noted. Well-healed upper midline scar with no evidence of recurrent hernia. LYMPH NODES: Cervical and supraclavicular lymph nodes without adenopathy. EXTREMITIES: Warm, well-perfused. No pretibial edema. BACK: Grossly normal range of motion. SKIN: Warm, no lesion or rash noted on visible skin. NEURO: Alert and oriented, appropriate. Motor and sensory grossly intact. LABS: Lab results, as listed below, were reviewed and discussed with the patient. Lab Results Component Value Date WBC 7.7 10/29/2024 HGB 14.7 10/29/2024 HCT 45.0 10/29/2024 MCV 91.3 10/29/2024 PLT 235 10/29/2024 Lab Results Component Value Date NA 139 10/29/2024 K 4.2 10/29/2024 CL 107 10/29/2024 CO2 27 10/29/2024 GLUCOSE 163 (H) 10/29/2024 BUN 19 10/29/2024 CREATININE 1.02 10/29/2024 CALCIUM 9.4 10/29/2024 PROT 6.8 10/29/2024 ALBUMIN 4.0 10/29/2024 BILITOT 1.7 (H) 10/29/2024 AST 33 10/29/2024 ALT 46 10/29/2024 ALKPHOS 99 10/29/2024 EGFR 58 (L) 10/29/2024 No results found for: HGBA1C IMAGING: The following images were personally reviewed, including reports and associated films. Findings were discussed with the patient. CT scan of the chest, abdomen, pelvis with contrast done 11/30/2024 demonstrated pancreas tail mass suspicious for primary pancreatic neoplasm. Patient was status post left upper lobectomy and right upper lobe segmentectomy and had signs of emphysema. No suspicious pulmonary nodules noted. Patient was status post right hemicolectomy. No metastatic disease noted in the chest abdomen or pelvis. ................................................................................ ............................................................. ASSESSMENT & PLAN: 1. Pancreatic mass Ambulatory referral to General Surgery Mass in pancreatic tail, suspicious for malignancy. Most likely pancreatic primary, metastatic lesion less likely. No obvious metastatic disease on imaging. Plan: Patient has been referred to [facility] biliary pancreatic GI for urgent EUS and biopsy to obtain a tissue diagnosis. Patient is also scheduled for colonoscopy next week at [facility]. It is unlikely that this could be done at the same time of the EUS but if it could be the patient with like to have both done the same setting. PET scan has been ordered to evaluate for occult metastatic disease. We will obtain Tumor markers and repeat labs. We will obtain recent preoperative clearance notes from cardiology and pulmonology. If no occult metastatic disease, definitive surgical treatment with distal pancreatectomy and splenectomy will be recommended. I discussed the option of neoadjuvant chemotherapy if this is in fact a pancreatic primary. Patient is very reluctant to do chemotherapy and would much rather prefer upfront surgery. I explained both options to the patient with potential benefits of both options. We we will tentatively pick a surgery date in the next 4 to 6 weeks giving us enough time to complete the workup and preoperative risk assessment. In the meantime I encouraged the patient to increaseher physical activity slightly even if it is just daily walking and to concentrate on good nutritional intake. I will see the patient back in the office in a few weeks. Patient will need postsplenectomy vaccines prior to surgery. Patient to follow-up with Dr. Ray in Medical Oncology as scheduled. The patient will need to hold her Plavix prior to EUS and biopsy and prior to any surgical procedure. It was a pleasure seeing Corin Alvarenga at the Surgery [facility] today. The patient has been instructed to call with any additional questions or concerns. Thank you for this referral. Diogenes Foster MD, FACS General Surgery [facility] A Member of [employer] [facility] W [phone] F [phone] [address] [place] [address] [email or web address] cc: Seven Felix* documented in this encounter Plan of Treatment Upcoming Encounters Date Type Department Care Team (Late st Contact Info) Description 12/17/2024 9:30 AM EDT Hospital Encounter [facility] Endoscopy [address] [place] [phone] Valente Camarena MD [address] [address] 01/13/2025 2:15 PM EDT Office Visit [facility] Hematology Oncology [address] [place] [phone] Carmen Felix MD [address] [place] [phone] documented as of this encounter Visit Diagnoses Diagnosis Pancreatic mass Unspecified disease of pancreas documented in this encounter Historical Medications * This list may reflect changes made after this encounter. Medication Sig Dispense Quantity Refills Last Filled Start D ate End Date Trintellix 10 mg tablet 11/04/2024 rosuvastatin (CRESTOR) 40 mg tablet 11/04/2024 added in this encounter Orders Outpatient Referral Count Last Ordered Date Fir st Ordered Date AMB REFERRAL TO GENERAL SURGERY 1 documented in this encounter Care Teams Emergency Medical Service Coordinator Relationship Specialty Start Date End Date Jung Carranza MD [address] [place] [address] Rd [address] [place], [place] PCP - General Internal Medicine 12/08/18 documented as of this encounter
--- OUTSIDE RECORDS SUMMARY | 2024-12-08 18:11 | XMS_ITS | Encounter Summary ---
Author Organization [facility] Address [address] [place] [address] Care Team Providers Care Firer T[employer]n Name Role Phone Jung Carranza MD Primary Care Provider +1- [phone] Reason for Referral * Imaging (Routine) - Closed Specialty Diagnoses / Procedures Referred By Contac t Referred To Contact Radiology Diagnoses Pulmonary nodules Overlapping malignant neoplasm of colon (CMS/HCC) Procedures CT Chest/Abdomen/Pelvis w Contrast Carmen Felix MD [address] [place] [address] Phone: tel: fax: [address] [address] Phone: tel: Referral ID Status Reason Start Date Expiration Date Visits Re quested Visits Authorized [id number] Closed 11/06/2024 11/06/2025 1 1 Reason for Visit * Imaging (Routine) - Closed Specialty Diagnoses / Procedures Referred By Contac t Referred To Contact Radiology Diagnoses Pulmonary nodules Overlapping malignant neoplasm of colon (CMS/HCC) Procedures CT Chest/Abdomen/Pelvis w Contrast Carmen Felix MD [address] [place] [phone] Phone: tel: fax: [address] [address] Phone: tel: Referral ID Status Reason Start Date Expiration Date Visits Re quested Visits Authorized [id number] Closed 11/06/2024 11/06/2025 1 1 Encounter Details Date Type Department Care Team (Latest Contact Info) Description 11/27/2024 2:37 PM EDT - 11/27/2024 11:59 PM EDT Hospital Encounter [facility] CT Scan [address] [place] [address] Pulmonary nodules; Overlapping malignant neoplasm of colon (CMS/HCC) Discharge Disposition: Home or Self Care Social History Tobacco Use Types Packs/Day Years [...] on file documented as of this encounter Medications at Time of Discharge albuterol HFA (PROAIR HFA ; PROVENTIL HFA ; VENTOLIN HFA) 90 mcg/actuation inhaler Inhale 2 puffs by mouth every 4 (four) hours if needed. calcium carbonate/vitamin D3 (CALCIUM + D ORAL) Take by mouth. cetirizine (ZyrTEC) 10 mg capsule Take by mouth. clopidogreL (PLAVIX) 75 mg tablet Take 1 tablet (75 mg total) by mouth 1 (one) time each day. 04/12/2024 eszopiclone (LUNESTA) 3 mg tablet Take 3 mg by mouth at bedtime as needed. ezetimibe (ZETIA) 10 mg tablet Route: Take 10 mg by mouth daily. - Oral 05/04/2024 Jardiance 25 mg tablet Take 1 tablet (25 mg total) by mouth 1 (one) time each day. LORazepam (ATIVAN) 0.5 mg tablet - Route: Take 0.5 mg by mouth every 6 hours as needed. - Oral 06/13/2024 losartan (COZAAR) 50 mg tablet Take 50 mg by mouth daily. multivitamin (MULTIPLE VITAMINS ORAL) Take by mouth. 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 60 tablet 6 10/29/2024 rosuvastatin (CRESTOR) 40 mg tablet 11/04/2024 Rybelsus 7 mg tablet Take 1 tablet (7 mg total) by mouth 1 (one) time each day before breakfast. 09/18/2024 Trintellix 10 mg tablet 11/04/2024 documented as of this encounter Discharge Disposition Disposition Code Departure Means Destination Home or Self Care documented in this encounter Plan of Treatment Upcoming Encounters Date Type Department Care Team (Late st Contact Info) Description 12/17/2024 9:30 AM EDT Hospital Encounter [facility] Endoscopy [address] [place] [address] Valente Camarena MD [address] [address] 01/13/2025 2:15 PM EDT Office Visit [facility] Hematology Oncology [address] [place] [address] Carmen Felix MD [address] [place] [address] documented as of this encounter Procedures Procedure Name Priority Date/Time Associated Diagnosis Comments CT CHEST/ABDOMEN/PELVI S W CONTRAST Routine 11/27/2024 3:17 PM EDT Pulmonary nodules Overlapping malignant neoplasm of colon (CMS/HCC) documented in this encounter Results * CT Chest/Abdomen/Pelvis w Contrast (11/27/2024 [...] infarction. -------- FINAL REPORT -------- Dictated By: ROBERTO VILLATORO Dictated Date: 11/30/2024 09:26 ET Assigned Physician: ROBERTO VILLATORO Reviewed and Electronically Signed By: ROBERTO VILLATORO Signed Date: 11/30/2024 09:34 ET Workstation ID: [id number] Transcribed By: Self Edit Transcribed Date: 11/30/2024 [...] the bones. ??Levoconvex thoracolumbar curvature. Procedure Note Roberto Villatoro MD - 11/30/2024 PROCEDURE: Chest, abdomen, [...] the bones. Chronic fracture deformity at the [id number] body with less than 25% height loss. [...] infarction. -------- FINAL REPORT -------- Dictated By: ROBERTO VILLATORO Dictated Date: 11/30/2024 09:26 ET Assigned Physician: ROBERTO VILLATORO Reviewed and Electronically Signed By: ROBERTO VILLATORO Signed Date: 11/30/2024 09:34 ET Workstation ID: [id number] Transcribed By: Self Edit Transcribed Date: 11/30/2024 09:26 ET us Subramony Subramonia-Cory ROMERO CT PROCEDURES F inal Result documented in this encounter Visit Diagnoses Diagnosis Pulmonary nodules Other diseases of lung, not elsewhere classified Overlapping malignant neoplasm of colon (CMS/HCC) documented in this encounter Administered Medications Inactive Administered Medications - up to 3 most recent administrations Medication Order MAR Action Action Date Dose Rate Site barium sulfate (READI-CAT 2) 2 % (w/v) suspension 900 mL 900 mL, oral, Once in imaging, Starting on Sat11/27/24 at 1510, For 1 dose Given 11/27/2024 3:11 PM EDT 900 mL iopamidoL (ISOVUE-370) 370 mg iodine /mL (76 %) injection 90 mL 90 mL, intravenous, Once in imaging, Starting on Sat11/27/24 at 1510, For 1 dose Given 11/27/2024 3:11 PM EDT 90 mL sodium chloride 0.9 % flush 10 mL 10 mL, intravenous, Once, On Sat11/27/24 at 1530, For 1 dose Given 11/27/2024 3:11 PM EDT 10 mL documented in this encounter Care Teams [employer] Relationship Specialty Start Date End Date Jung Carranza MD [address] [place] [address] [address] [place], [place] PCP - General Internal Medicine 12/08/18 documented as of this encounter
== END 2024-12-08 15:36 | disposition home or self-care (01) ==
LOC: HO.ENCR 14:31
PROVIDERS: PCP Internal Medicine; Visit Provider Internal Medicine Endocrinology, Diabetes & Metabolism
DX: E11.21 Type 2 diabetes mellitus with diabetic nephropathy (principal)
CPT/HCPCS: 99214

== ENCOUNTER → 2024-12-08 14:31 | Outpatient (BNVA) | payer OTHER, SELFPAY | PROVIDERS: PCP Internal Medicine; Visit Provider Internal Medicine Endocrinology, Diabetes & Metabolism | DX: E11.21 Type 2 diabetes mellitus with diabetic nephropathy (principal); I50.9 Heart failure, unspecified; I25.10 Atherosclerotic heart disease of native coronary artery without angina pectoris | CPT/HCPCS: 82947 ==

== ENCOUNTER 2025-01-26 11:31 | Outpatient (AMB) | payer OTHER, SELFPAY ==
--- NOTE | 2025-01-26 11:33 | MHC.OFFVIS ---
Vital Signs 01/26/25 11:35 Height 5 ft 4 in Weight 141 lb 15.643 oz BMI 24.4 BP 92/58 L Blood Pressure Location Lt brachial Position Sitting Pulse 81 Pulse Source Pulse Oximeter Pulse Oximetry (%) 98 Oxygen Delivery Method Room Air Intake Visit Reasons: T2DM Intake Note: Patient present today to follow up on Type 2 Diabetes Mellitus. Last Diabetic Eye exam: Within the year Last Podiatry Visit: Does not see a Payment Processor Random Glucose: 252 mg/dl @ 9:30 am finger stick at home, recovering from surgery and refused in office finger stick. HgA1C: 8.8% 11/10/2024 Agricultural Lender Required: No Accompanied by: Daughter Allergies gabapentin [From Neurontin] Allergy (Severe, Verified 01/26/25 11:35) Itching latex Allergy (Severe, Verified 01/26/25 11:35) Swelling levofloxacin [Levaquin] Allergy (Severe, Verified 01/26/25 11:35) Swelling Aspirin Allergy (Severe, Uncoded 01/26/25 11:35) Swelling HPI Comments Details: This is a 74-year-old female with a past medical history of type 2 diabetes, CHF, CAD, hiatal hernia with GERD, lung cancer, stage II adenocarcinoma of the colon, carotid artery stenosis, COPD, pulmonary nodules and recently diagnosed pancreatic cancer s/p tumor resection and splenectomy presenting for diabetic management. Surgeon -Dr. Medrano Oncologist- Dr. Ray. Patient says she had pancreatic mass resected and spleen removed on 01/07/[address] [facility]. She was kept in the hospital for 5 days which they say was mostly due to difficulties controlling pain. Patient said she will be starting chemo in 4-6 weeks. Hemoglobin A1c 8.8% 11/10/2024. She was diagnosed with diabetes 4 years ago. Her mother had type 2 diabetes. Current medication regimen:Jardiance 25 mg and lispro three times daily. <150 0 units 151-200 1 unit 201-250 2 units 251-300 3 units 301-350 4 units 351-400 5 units >400 6 units Lispro was started during the surgical admission. She did not restart Jardiance after the hospitalization, and she does want to restart the medication. Past medications: Mounjaro was discontinued due to risk of pancreatitis. Rybelsus was discontinued due to abdominal pain in the past. She never tried metformin because she was concerned about potential side effects due to chronic diarrhea. She has the Dexcom G7 sensor, but she needs an appointment with the spray gun operator to set it backup. The 1st time she tried using it it alerted her low sugars frequently overnight, and she was diagnosed with cancer and had a lot of other things going on at the time. She still does, but she does want to try to use it. She brought a list of her blood sugars with her - see scanned record. Her blood sugars within the last week are in the 200s and low 300s. Hypoglycemia symptoms: none Hyperglycemia symptoms: Weight loss and polydipsia Eye exam: [facility], no complications per patient last exam Microvascular complications: neuropathy, nephropathy (renal insufficiency) Macrovascular complications: CAD and PAD (Dr. Freitas) Hypertension: treated with losartan 25 mg. Her blood pressure is soft today, but she says it fluctuates and denies dizziness. Hyperlipidemia: treated with rosuvastatin 40 mg, Zetia 10 mg LDL at goal <100. ROS: Constitutional: +weight loss, no fevers or chills. Respiratory: No shortness of breath Cardiovascular: No chest pain Neurologic: No headache, dizziness, syncope Endocrine: see HPI Physical exam: Constitutional: Alert, in no distress. Neck: Supple, Full range of motion. No lymphadenopathy. No palpable thyroid masses. Respiratory: Clear to auscultation. Cardiovascular: S1 S2 regular. No murmurs. Extremities: Warm and well perfused. No clubbing, cyanosis or edema. Psychiatric: Normal mood and affect [facility] Medical History (Updated 11/10/24 @ 15:47 by RALPH Ng) CHF (congestive heart failure) Renal insufficiency Peripheral sensory neuropathy due to type 2 diabetes mellitus Type II diabetes mellitus History of transfusion of packed red blood cells Migraine History of placement of stent in LAD coronary artery Osteoporosis Hyperlipidemia Depression CAD (coronary artery disease) Sleep apnea On anticoagulant therapy TIA (transient ischemic attack) Myocardial infarction Obesity Diabetes Dyslipidemia History of colon cancer HTN (hypertension) Carotid stenosis, asymptomatic GERD (gastroesophageal reflux disease) Colon cancer Pre-op chest exam Lung cancer Pulmonary nodules Dyspnea COPD (chronic obstructive pulmonary disease) Pulmonary nodule Surgical History History of surgery History of incisional hernia repair (07/06/24) Hx of tonsillectomy Hx of tubal ligation History of dental surgery Hx of cardiac catheterization History of lobectomy of lung Family History Mother Stroke Diabetes Father Alcoholic cirrhosis of liver Social History Household Members: None Housing: House Are you a primary respiratory care specialist to a significant other at home: No Do you presently have visiting nurse or other home services: No Patient Tobacco Use Status: Former Tobacco user Tobacco use type: Cigarette Years Smoked: 20+ Years Second Hand Smoke Exposure: No service: No Physical Exam Vital Signs: BMI result Body Mass Index 24.4 Results Reviewed Results Reviewed: Laboratory Tests 05/06/24 05/13/24 23:31 11:56 Plt Count 241 Creatinine 1.13 1.10 Estimated GFR 47 49 AST 17 ALT 21 Assessment & Plan Assessment & Plan (1) Type II diabetes mellitus: Code(s): E11.9 - Type 2 diabetes mellitus without complications Category: Medical Qualifiers: Diabetes mellitus [facility] insulin use: without long chain quiller tender use Diabetes mellitus complication status: with kidney complications Diabetes mellitus complication detail: with nephropathy Qualified Code(s): E11.21 - Type 2 diabetes mellitus with diabetic nephropathy (2) Renal insufficiency: Code(s): N28.9 - Disorder of kidney and ureter, unspecified Category: Medical Plan In summary this is a 74-year-old female with uncontrolled type 2 diabetes with micro and macrovascular complications recently diagnosed with pancreatic cancer who underwent tumor resection and splenectomy. Notes will be requested from [facility]. Remain off GLP 1 due to risk of pancreatitis. Check C-peptide in light of recent surgery. She can restart Jardiance 25 mg daily. Check renal function. Start Tresiba (long acting insulin) 4 units every evening. Follow this scale for lispro and administer 15 minutes before meals: <180 0 units 180-200 2 unit 201-250 4 units 251-300 6 units 301-350 8 units 351-400 10 units >400 12 units and call the office You do not need to administer lispro before snacks at this time. Reasonable goal for hemoglobin A1c is 7.5-8% given medical history. If you experience low blood sugar (70), treat this by eating a chewable fruit candy like skittles or jelly beans (about 8 pieces), 4 ounces (1/2 cup) of fruit juice (not diet), 1 tablespoon of honey or 4 glucose tablets. If your blood sugar is under 55, take double the amount of one of the above. Recheck your blood sugar in 15 minutes. If you have low blood sugars before the next appointment please call the office. Schedule appointment with spray gun operator for CGM Education, and follow up visit requested. She has a lot of appointments so this was scheduled at her earliest convenience in 3 weeks. Orders: Orders Creatinine Today E11.21 - Type 2 diabetes mellitus with diabetic nephropathy, E11.9 - Type 2 diabetes mellitus without complications C Peptide Today E11.21 - Type 2 diabetes mellitus with diabetic nephropathy Medications: New insulin degludec (Tresiba FlexTouch U-200 insulin) 4 units (0.02 mL) subcut BEDTIME 9 mL 5RF Discontinued tirzepatide (Mounjaro) Discontinued Reason: Doctor's Order 2.5 mg (0.5 mL) subcut QWEEK 2 mL 4RF Patient Instructions: Start Tresiba (long acting insulin) 4 units every evening. Restart Jardiance 25 mg daily. Follow this scale for lispro and administer 15 minutes before meals: <180 0 units 180-200 2 unit 201-250 4 units 251-300 6 units 301-350 8 units 351-400 10 units >400 12 units and call the office You do not need to administer lispro before snacks at this time. Our goal for your hemoglobin a1c is 7.5-8.0%. We will try to get your sugars between 100-225 during the day. If you experience low blood sugar (70), treat this by eating a chewable fruit candy like skittles or jelly beans (about 8 pieces), 4 ounces (1/2 cup) of fruit juice (not diet), 1 tablespoon of honey or 4 glucose tablets. If your blood sugar is under 55, take double the amount of one of the above. Recheck your blood sugar in 15 minutes. If you have low blood sugars before the next appointment please call the office. Coding Level of Care Code Est Pt Level 5 (93288) Complex EM visit Add On G2211 Diagnoses Type 2 diabetes mellitus with diabetic nephropathy, without long-term current use of insulin E11.21 Diabetes mellitus [facility] insulin use: without long chain quiller tender use Diabetes mellitus complication status: with kidney complications Diabetes mellitus complication detail: with nephropathy Renal insufficiency N28.9 Time Spent (min) 55 Comment Direct patient care and education and chart completion
[2025-01-26 11:35] VITALS: BP 92/58; PULSE 81; O2SAT 98; BMI 24.4
--- OUTSIDE RECORDS SUMMARY | 2025-01-26 13:00 | XMS_ITS | Clinical Summary ---
Author Organization [facility] Address [address] [place] [address] Care Team Providers Care Plsql Developer Name Role Phone Jung Carranza MD Primary Care Provider [phone] Allergies Active Allergy Reactions Criticality Noted Date [...] age to complete this topic Care Teams Plsql Developer Relationship Specialty Start Date End Date Jung Carranza MD [address] [place] [id number] PCP - General Internal Medicine 02/12/24
--- OUTSIDE RECORDS SUMMARY | 2025-01-26 13:01 | XMS_ITS | Clinical Summary ---
Author Organization [facility] Address [address] [place] [address] Phone Care Team Providers Care Service Car Driver Name Role Phone Jung Carranza MD Primary Care Provider [phone] Allergies Active Allergy Reactions Criticality Noted Date Comments Aspirin Swelling High 08/12/2017 Latex Itching 08/12/2017 Levofloxacin Itching 08/12/2017 Medications calcium carbonate/vit burgos D3 (CALCIUM + D ORAL) Take by mouth. Activ e clopidogreL (PLAVIX) 75 mg tablet Take 1 tablet (75 mg total) by mouth 1 (one) time each day. 04/12/20 24 Active LORazepam (ATIVAN) 0.5 mg tablet - Route: Take 0.5 mg by mouth every 6 hours as needed. - Oral 06/13/20 24 Active multivitamin (MULTIPLE VITAMINS ORAL) Take by mouth. Activ e albuterol HFA (PROAIR HFA ; PROVENTIL HFA ; VENTOLIN HFA) 90 mcg/actuation inhaler Inhale 2 puffs by mouth every 4 (four) hours if needed. Active ezetimibe (ZETIA) 10 mg tablet Route: Take 10 mg by mouth daily. - Oral 05/04/20 24 Active cetirizine (ZyrTEC) 10 mg capsule 1 (one) time each day. 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 60 tablet 6 10/29/19 25 Active rosuvastatin (CRESTOR) 40 mg tablet 11/04/19 25 Active Trintellix 10 mg tablet 11/04/19 25 Active gabapentin (NEURONTIN) 300 mg capsule Take 1 capsule (300 mg total) by mouth if needed. Active budesonide-gl ycopyr-formot gurpreet (Breztri Aerosphere) 160-9-4.8 mcg/actuation HFA aerosol inhaler inhaler Inhale 2 puffs by mouth 2 (two) times a day. Active enoxaparin (LOVENOX) 40 mg/0.4 mL syringe Inject 0.4 mL (40 mg total) under the skin 1 (one) time each day at the same time for 28 days. 28 each 01/13/20 25 025 Active oxyCODONE (ROXICODONE) 5 mg immediate release tablet Take 1 tablet (5 mg total) by mouth every 6 (six) hours if needed for severe pain. Max Daily Amount: 20 mg 12 tablet 01/12/20 25 Active Additional Information Patient not taking.Reported on 01/20/2025 insulin lispro (HumaLOG KwikPen) 100 unit/mL injection pen Inject 1-6 Units under the skin 3 (three) times a day before meals. Administer within 15 minutes of a meal. If glucose is less than or equal to 150, administer 0 units. For glucose 151-200, administer 1 unit. Glucose 201-250, administer 2 units. Glucose 251-300, administer 3 units. Glucose 301-350, administer 4 units. Glucose 351-400, administer 5 units. Glucose greater than 400, administer 6 units 15 mL 01/12/20 25 Active pen needle, diabetic (BD Ultra-Fine Short Pen Needle) 31 gauge x 5/16 needle 1 each 4 (four) times a day (before meals and nightly). 120 each 01/13/20 25 Active losartan (COZAAR) 50 mg tablet Take 50 mg by mouth daily. 025 Discontinued Jardiance 25 mg tablet Take 1 tablet (25 mg total) by mouth 1 (one) time each day. 025 Discontinued(S top Taking at Discharge) polyethylene glycol (Golytely) 236-22.74-6.7 4 -5.86 gram solution Take 4L by mouth once for one dose. May substitue any PEG. Starting at 6PM the night before your procedure drink 1 8oz glasses at your own pace until you complete half of the gallon. Finish 2nd half of the gallon 5 hours before your procedure. 4000 mL 12/04/19 25 025 Discontinued bisacodyL (DULCOLAX) 5 mg EC tablet Take 2 tablets by mouth right before beginning bowel prep. See instructions provided by the office 2 tablet 12/04/19 25 025 Discontinued pneumococcal conjugate 20-valent (Prevnar 20, PF,) 0.5 mL vaccine Inject 0.5 mL into the shoulder, thigh, or buttocks 1 (one) time. Discontinued meningococcal group B (BEXSERO) 50-50-50-25 mcg/0.5 mL syringe Inject 0.5 mL into the shoulder, thigh, or buttocks 1 (one) time. 025 Discontinued acetaminophen (TYLENOL) 500 mg tablet Take 2 tablets (1,000 mg total) by mouth every 8 (eight) hours for 10 days. 30 tablet 01/12/20 025 docusate sodium (COLACE) 100 mg capsule Take 1 capsule (100 mg total) by mouth 2 (two) times a day for 10 days. 20 each 01/12/20 25 025 insulin lispro 100 unit/mL injection Inject 1-6 Units under the skin 3 (three) times a day before meals. Administer within 15 minutes of a meal. If glucose is less than or equal to 150, administer 0 units. For glucose 151-200, administer 1 unit. Glucose 201-250, administer 2 units. Glucose 251-300, administer 3 units. Glucose 301-350, administer 4 units. Glucose 351-400, administer 5 units. Glucose greater than 400, administer 6 units 6 mL 01/12/20 25 025 Discontinued(S top Taking at Discharge) insulin lispro (HumaLOG KwikPen) 100 unit/mL injection pen Inject 1-6 Units under the skin 3 (three) times a day before meals. Administer within 15 minutes of a meal. If glucose is less than or equal to 150, administer 0 units. For glucose 151-200, administer 1 unit. Glucose 201-250, administer 2 units. Glucose 251-300, administer 3 units. Glucose 301-350, administer 4 units. Glucose 351-400, administer 5 units. 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 ([facility] V24, [facility] V28) 12/22/2024 Asthma-COPD overlap syndrome ([facility] V24, [facility] V28) 11/06/2017 COPD (chronic obstructive pu lmonary disease) ([facility] V24, [facility] V28) 11/06/2017 Gastroesophageal reflux 11/06/2017 Hiatal hernia 11/06/2017 Hyperlipidemia 11/06/2017 Pulmonary nodules 11/06/2017 Encounters Date Type Department Care Team Description 01/20/2025 10:45 AM EDT Office Visit General Surgery - [place] [facility] [address] [place] [address] Diogenes Medrano MD 01/19/2025 3:12 AM EDT - 01/19/2025 2:33 PM EDT Hospital Encounter [facility] Emergency [address] [place] [phone] Jerrell Cameron MD Aphasia (Primary Dx) Discharge Disposition: Home or Self Care 01/07/2025 11:30 AM EDT - 01/07/2025 5:[address] [facility] Main OR [address] [place] [phone] Diogenes Medrano MD LAPAROSCOPIC DISTAL PANCREATECTOMY W/ SPLENECTOMY, LAP LYSIS OF ADHESIONS [78242 (CPT??) +1 more] 01/07/2025 10:58 AM EDT Anesthesia Event [facility] Main OR [address] [place] [phone] Johnathon Moses, DO Jade, JUSTYN Weiner 01/07/2025 9:55 AM EDT - 01/11/2025 1:41 PM EDT Hospital Encounter [facility] Medical Surgical Unit [address] [place] [address] Diogenes Medrano MD Malignant neoplasm of tail of pancreas ([facility]/HCC V24, CMS/HCC V28) Discharge Disposition: Home-Health Care [place] 12/30/2024 10:45 AM EDT Office Visit General Surgery [address] [phone] Diogenes Medrano MD Malignant neoplasm of tail of pancreas ([facility]/HCC V24, [facility]/HCC V28) (Primary Dx) 12/25/[address] [phone] Diogenes Medrano MD Prior Authorization (01/07/25 Dr. Diogenes Medrano) 12/21/[address] [facility] Hematology Oncology [address] [place] [address] Carmen Rodriguez MD 12/17/2024 10:27 AM EDT Anesthesia Event [facility] Endoscopy [address] [place] [phone] Francisco Pablo MD 12/17/2024 8:40 AM EDT - 12/17/2024 11:59 PM EDT Hospital Encounter [facility]oscopy [address] [place] [address] Valente Camarena MD Steele, Matthew G, CRNA Personal history of colon cancer Discharge Disposition: Home or Self Care 12/11/2024 2:55 PM EDT - 12/11/2024 11:59 PM EDT Hospital Encounter [facility] PET Scan [address] [place] [address] Pancreatic mass; Primary cancer of pancreatic duct ([facility]/HCC V24, [facility]/HCC V28) Discharge Disposition: Home or Self Care 12/08/2024 8:45 AM EDT Consult General Surgery [address] [phone] Diogenes Medrano MD Pancreatic mass 12/02/[address] [facility] Hematology Oncology [address] [place] [address] Carmen Rodriguez MD Appointment 11/27/2024 2:37 PM EDT - 11/27/2024 11:59 PM EDT Hospital Encounter [facility] CT Scan [address] [place] [address] Pulmonary nodules; Overlapping malignant neoplasm of colon ([facility] V24, [facility] V28) Discharge Disposition: Home or Self Care 11/23/2024 Telephone Gastroenterology [facility] 175 [facility] 175 [facility] [address] [place] [address] Pily Tapia LPN Anticoagulation (Colonoscopy on 12/17/[address] Camarena) 11/05/[address] [facility] Hematology Oncology [address] [place] [address] Carmen Rodriguez MD 10/29/2024 1:20 PM EST Consult Gastroenterology [facility] 175 [facility] 175 [facility] [address] [place] [address] Thomas Baron, PA Gastroesophageal reflux disease without esophagitis (Primary Dx); H/O: lung cancer; H/O malignant neoplasm of colon; History of acute anterior wall myocardial infarction; Diabetes 1.5, managed as type 2 ([facility] V24, [facility] V28); Hernia of abdominal wall; Epigastric pressure; Hiatal hernia from Last 3 Months Immunizations Name Administration Dates Next Due HiB PRP-T conjugate (Acthib, Hiberix) 6wks and older 01/08/2025(Deferred: Patient Refused) Meningococcal B, Recombinant (Bexsero) 16yo to less than 24yo 01/08/2025 DigiFit (ages 12 & older) MENG S-CoV-2 COVID-19, mRNA, LNP-S, nj-sucrose, preservative free 02/06/2022 Pfizer SARS-CoV-2 COVID-19, mRNA, LNP-S, preservative free 08/26/2021,12/30/2020,12/06/2020 Pneumococcal conjugate 13 va lent (Prevnar 13, PCV13) 2mo and older 07/14/2018 Pneumococcal conjugate 20 va lent (Prevnar 20, PCV 20) 2mo and older 01/08/2025 Surgical History Surgery Date Site/Laterality Comments OTHER SURGICAL HISTORY PROCEDURE: ---- OTHER ----; COMMENT: lung resection for cancer x2 COLON SURGERY PROCEDURE:COLON SURGERY LUNG SURGERY PROCEDURE:LUNG SURGERY CORONARY ANGIOPLASTY WITH ST ENT PLACEMENT COLONOSCOPY Medical History Medical History Date Comments Asthma 11/06/2017 DX:Asthma Asthma-COPD overlap syndrome ([facility] V24, [facility] V28) 11/06/2017 DX:Asthma-COPD overlap syndr ome (HCC) COPD (chronic obstructive pu lmonary disease) ([facility] V24, [facility] V28) 11/06/2017 DX:COPD (chronic o bstructive pulmonary disease) (HCC) Gastroesophageal reflux 11/06/2017 DX:Gastr oesophageal reflux Hiatal hernia 11/06/2017 DX:Hiatal hernia History of lung cancer 11/06/2017 DX:Histor y of lung cancer; COMMENT: X2, s/p resection Hyperlipidemia 11/06/2017 DX:Hyperlipidemi a Pulmonary nodules 11/06/2017 DX:Pulmonary n odules Lung cancer ([facility] V24, [facility] V28) DX:Lung cancer (HCC) COPD (chronic obstructive pu lmonary disease) ([facility] V24, [facility] V28) DX:COPD (chronic o bstructive pulmonary disease) (HCC) GERD (gastroesophageal reflux disease) DX:GERD (gastroesophageal reflux disease) Colon cancer ([facility] V24, [facility] V28) DX:Colon cancer (HCC) Diabetes mellitus ([facility] V 24, [facility] V28) DX:Diabetes mellitus (HCC) UT, old Heart disease Shortness of breath Liver disease Migraines Social History Tobacco Use Types Packs/Day Years Used Date Smoking Tobacco: Former Cigarettes Smokeless Tobacco: Never Tobacco Cessation:Counseling Given: Not Answered Alcohol Use Standard Drinks/Week Comments Not Currently 0 (1 standard drink = 0.6 oz pur e alcohol) Interpersonal Safety Answer Date Record ed Physical Abuse 01/07/2025 Verbal Abuse 01/07/2025 Comments No Sex and Gender Information Value Date Recorded Sex Assigned at Female 10/02/2024 4:40 PM EST Legal Sex Female 2:38 AM EST Gender Identity Female 10/02/2024 4:40 PM EST Sexual Orientation Straight 12/17/2024 8: 34 AM EDT Obstetrics History Last Filed Vital Signs Vital Sign Reading Time Taken Comments Blood Pressure 92/64 01/20/2025 11:12 AM EDT Pulse 99 01/20/2025 11:12 AM EDT Temperature 36.2 ??C (97.1 ??F) 01/20/2025 11:12 AM E DT Respiratory Rate 18 01/19/2025 12:13 PM EDT Oxygen Saturation 95% 01/19/2025 12:13 PM EDT Inhaled Oxygen Concentration - - Weight 65.4 kg (144 lb 3.2 oz) 01/20/2025 11:12 AM EDT Height 162.6 cm (5' 4 ) 01/20/2025 11:12 AM EDT Body Mass Index 24.75 01/20/2025 11:12 AM EDT Plan of Treatment Upcoming Encounters Date Type Department Care Team (Late st Contact Info) Description 02/01/2025 2:45 PM EDT Office Visit [facility] Hematology Oncology [address] [place] [phone] Carmen Felix MD [address] [place] [phone] 02/17/2025 10:00 AM EDT Office Visit General Surgery [facility] [address] [phone] Diogenes Medrano MD [address] [address] Health Maintenance Due Date Last Done Comments Breast Cancer Screening 1950 Diabetes: Annual Foot Exam 02/29/1960 Diabetes: Annual Retina Eye Exam 02/29/1960 Zoster Vaccines (1 of 2) 1969 DTaP,Tdap,and Td Vaccines (2 - Td or Tdap) 09/16/2015 09/16/2005 COVID-19 Vaccine ( season) 2024 10/22/2023, 06/27/2022, 02/06/2022, Additional history exists Depression Screening 07/01/2024 Hepatitis C Screening 07/01/2024 Medicare Annual Wellness Visit 07/01/2024 Osteoporosis Screening (Bone Density Screening) 07/01/2024 Social Influencers of Health Screening 07/01/2024 Diabetes: Annual Urine Albumin-Creatinine Ratio (uACR) 10/02/2024 Diabetes: Blood Sugar Control Test (HGBA1C) 07/22/2025 01/19/2025 Falls Risk Assessment 01/11/2026 01/11/2025 Diabetes: Annual GFR (Glomerular Filtration Rate) 01/19/2026 01/19/2025, 01/11/2025, 01/10/2025, Additional history exists Hypertension/CHF/CAD Annual BMP Blood Test 01/19/2026 01/19/2025, 01/11/2025, 01/10/2025, Additional history exists Cholesterol Screening (Lipid Panel) 01/19/2030 01/19/2025 Colorectal Cancer Screening: Colonoscopy 12/17/2034 12/17/2024 RSV Immunization Adult Patients Completed 07/16/2023 Influenza Vaccine Completed 06/26/2024, , 06/27/2022, Additional history exists Meningococcal B Vaccine Aged Out 01/08/2025 No l onger eligible based on patient's age to complete this topic Pneumococcal Vaccine: 50+ Years Completed 01/08/2025, 07/01/2019, 07/14/2018 HIB Vaccines Aged Out No longer eligi [...] Procedure Name Priority Date/Time Associated Diagnosis Comments ECG ANNOTATED 01/20/2025 MR BRAIN WO CONTRAST Routine 01/19/2025 11:46 AM EDT POCT GLUCOSE BLOOD Routine 01/19/2025 8:54 AM EDT TROPONIN I HIGH SENSITIVITY STAT 01/19/2025 4:51 AM EDT XR CHEST 1 VIEW STAT 01/19/2025 4:34 AM EDT ECG 12-LEAD STAT 01/19/2025 4:01 AM EDT TROPONIN I HIGH SENSITIVITY STAT 01/19/2025 3:52 AM EDT LIPID PANEL WITH REFLEX TO DIRECT LDL Add-On 01/19/2025 3:51 AM EDT HEMOGLOBIN A1C Add-On 01/19/2025 3:51 AM EDT THYROID STIMULATING HORMONE Add-On 01/19/2025 3:51 AM EDT MAGNESIUM Add-On 01/19/2025 3:51 AM EDT CBC WITH AUTO DIFFERENTIAL STAT 01/19 3:51 AM EDT ACTIVATED PARTIAL THROMBOPLASTIN TIME STAT 01/19/2025 3:51 AM EDT PROTHROMBIN TIME WITH INR STAT 2024 3:51 AM EDT BASIC METABOLIC PANEL STAT 01/19/2025 3:51 AM EDT CBC AND DIFFERENTIAL STAT 01/19/2025 3:[address] ANGIO HEAD/NECK STROKE WO AND/OR W CONTRAST STAT 01/19/2025 3:[address] HEAD STROKE WO CONTRAST STAT 01/19 3:48 AM EDT POCT GLUCOSE BLOOD Routine 01/19/2025 3:46 AM EDT POCT GLUCOSE BLOOD Routine 01/11/2025 10:50 AM EDT POCT GLUCOSE BLOOD Routine 01/11/2025 7:30 AM EDT PHOSPHORUS Routine 01/11/2025 6:19 AM EDT BASIC METABOLIC PANEL Routine 01/11/2025 6:19 AM EDT COMPLETE BLOOD COUNT Routine 01/11/2025 6:19 AM EDT POCT GLUCOSE BLOOD Routine 01/10/2025 8:00 PM EDT POCT GLUCOSE BLOOD Routine 01/10/2025 4:08 PM EDT POCT GLUCOSE BLOOD Routine 01/10/2025 11:36 AM EDT POCT GLUCOSE BLOOD Routine 01/10/2025 11:09 AM EDT AMYLASE, BODY FLUID Routine 01/10/2025 9:59 AM EDT POCT GLUCOSE BLOOD Routine 01/10/2025 7:22 AM EDT AMYLASE Add-On 01/10/2025 6:17 AM EDT CBC WITH AUTO DIFFERENTIAL Routine 01/10 6:17 AM EDT COMPREHENSIVE METABOLIC PANEL Routine 01/10/2025 6:17 AM EDT CBC AND DIFFERENTIAL Routine 01/10/2025 6:17 AM EDT MAGNESIUM Routine 01/10/2025 6:17 AM EDT PHOSPHORUS Routine 01/10/2025 6:17 AM EDT POCT GLUCOSE BLOOD Routine 01/09/2025 8:18 PM EDT POCT GLUCOSE BLOOD Routine 01/09/2025 4:14 PM EDT POCT GLUCOSE BLOOD Routine 01/09/2025 3:14 PM EDT POCT GLUCOSE BLOOD Routine 01/09/2025 11:17 AM EDT POCT GLUCOSE BLOOD Routine 01/09/2025 7:42 AM EDT POCT GLUCOSE BLOOD Routine 01/09/2025 6:16 AM EDT CBC WITH AUTO DIFFERENTIAL Routine 01/09 5:59 AM EDT COMPREHENSIVE METABOLIC PANEL Routine 01/09/2025 5:59 AM EDT CBC AND DIFFERENTIAL Routine 01/09/2025 5:59 AM EDT MAGNESIUM Routine 01/09/2025 5:59 AM EDT PHOSPHORUS Routine 01/09/2025 5:59 AM EDT POCT GLUCOSE BLOOD Routine 01/08/2025 7:30 PM EDT POCT GLUCOSE BLOOD Routine 01/08/2025 3:29 PM EDT POCT GLUCOSE BLOOD Routine 01/08/2025 11:16 AM EDT POCT GLUCOSE BLOOD Routine 01/08/2025 6:53 AM EDT CBC WITH AUTO DIFFERENTIAL Routine 01/08 6:07 AM EDT MAGNESIUM Routine 01/08/2025 6:07 AM EDT COMPREHENSIVE METABOLIC PANEL Routine 01/08/2025 6:07 AM EDT CBC AND DIFFERENTIAL Routine 01/08/2025 6:07 AM EDT POCT GLUCOSE BLOOD Routine 01/08/2025 4:02 AM EDT POCT GLUCOSE BLOOD Routine 01/07/2025 9:11 PM EDT COMPLETE BLOOD COUNT Routine 01/07/2025 8:04 PM EDT CREATININE, SERUM Routine 01/07/2025 6:20 PM EDT POCT GLUCOSE BLOOD Routine 01/07/2025 3:51 PM EDT RT BRONCHODILATOR THERAPY ASSESSMENT Routine 01/07/2025 3:50 PM EDT POCT ARTERIAL BASIC METABOLIC PROFILE, HH Routine 01/07/2025 2:54 PM EDT TISSUE EXAM Routine 01/07/2025 2:09 PM EDT Malignant neoplasm of tail of pancreas (CMS/HCC V24, CMS/HCC V28) POCT ARTERIAL BASIC METABOLIC PROFILE, HH Routine 01/07/2025 1:59 PM EDT TH AN ENDOTRACHEAL(NO CHARGE) Routine 01/07/2025 11:39 AM EDT TH AN ARTERIAL LINE (CHARGE) Routine 01/07/2025 11:34 AM EDT CO LAPAROSCOPIC SPLENECTOMY SURGICAL 01/07/2025 10:58 AM EDT Malignant neoplasm of tail of pancreas (CMS/HCC V24, CMS/HCC V28) Special Needs Booking in Dr. Kym Medrano's block. Asking 5 hours for this case - Laparoscopic pancreatectomy & splenectomy ? Open; Patient will be in patient after surgery. CO PANCREATECTOMY DISTAL SUBTOTAL WO PANCREATICOJEJUNOSTOMY 01/07/2025 10:58 AM EDT Malignant neoplasm of tail of pancreas (CMS/HCC V24, CMS/HCC V28) Special Needs Booking in Dr. Kym Medrano's block. Asking 5 hours for this case - Laparoscopic pancreatectomy & splenectomy ? Open; Patient will be in patient after surgery. POCT GLUCOSE BLOOD Routine 01/07/2025 10:17 AM EDT COMPLETE BLOOD COUNT Routine 12/23/2024 10:17 AM EDT Malignant neoplasm of tail of pancreas (CMS/HCC V24, CMS/HCC V28) COMPREHENSIVE METABOLIC PANEL Routine 12/23/2024 10:17 AM EDT Malignant neoplasm of tail of pancreas (CMS/HCC V24, CMS/HCC V28) CARCINOEMBRYONIC ANTIGEN Routine 025 10:17 AM EDT Malignant neoplasm of tail of pancreas (CMS/HCC V24, CMS/HCC V28) Malignant neoplasm of colon, unspecified part of colon (CMS/HCC V24, CMS/HCC V28) CANCER ANTIGEN 19-9 Routine 12/23/2024 10:17 AM EDT Malignant neoplasm of tail of pancreas (CMS/HCC V24, CMS/HCC V28) TYPE AND SCREEN Routine 12/23/2024 10:17 AM EDT Malignant neoplasm of tail of pancreas (CMS/HCC V24, CMS/HCC V28) COLONOSCOPY Routine 12/17/2024 10:44 AM EDT Personal history of colon cancer PET CT SKULL TO MID THIGH INITIAL Routine 12/11/2024 4:55 PM EDT Pancreatic mass Primary cancer of pancreatic duct (CMS/HCC V24, CMS/HCC V28) CT CHEST/ABDOMEN/PELVIS W CONTRAST Routine 11/27/2024 3:17 PM EDT Pulmonary nodules Overlapping malignant neoplasm of colon (CMS/HCC V24, CMS/HCC V28) CBC WITH AUTO DIFFERENTIAL Routine 10/29 2:23 PM EST Gastroesophagea l reflux disease without esophagitis H/O: lung cancer H/O malignant neoplasm of colon 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, managed as type 2 (CMS/HCC V24, CMS/HCC V28) Hernia of abdominal wall Epigastric pressure Hiatal hernia COMPREHENSIVE METABOLIC PANEL Routine 10/29/2024 2:23 PM EST Gastroesophagea l reflux disease without esophagitis H/O: lung cancer H/O malignant neoplasm of colon 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, managed as type 2 (CMS/HCC V24, CMS/HCC V28) Hernia of abdominal wall Epigastric pressure Hiatal hernia CBC AND DIFFERENTIAL Routine 10/29/2024 2:23 PM EST Gastroesophagea l reflux disease without esophagitis H/O: lung cancer H/O malignant neoplasm of colon 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, managed as type 2 (CMS/HCC V24, CMS/HCC V28) Hernia of abdominal wall Epigastric pressure Hiatal hernia from Last 3 Months Results * ECG-Annotated (01/20/2025) us Provider Onbase MD ECG ORDERABLES Final Result * MR Brain wo Contrast (01/19/2025 11:46 AM EDT) Anatomical Region Laterality Modality Head and Neck Magnetic Resonan ce 01/19/2025 12:0 1 PM EDT Impressions 01/19/2025 12:04 PM EDT NO ACUTE INFARCT. -------- FINAL REPORT -------- Dictated By: Lluvia Minor Dictated Date: 01/19/2025 12:01 ET Assigned Physician: Lluvia Minor Reviewed and Electronically Signed By: Lluvia Minor Signed Date: 01/19/2025 12:04 ET Workstation ID: [id number] Transcribed By: Self Edit Transcribed Date: 01/19/2025 12:02 ET Narrative 01/19/2025 12:04 PM EDT PROCEDURE: MR BRAIN WO CONTRAST INDICATION: Neuro deficit, acute, stroke suspected TECHNIQUE: ??Axial diffusion weighted, as well as T1 and T2-weighted multiplanar imaging without intravenous contrast. COMPARISON: ??No priors available. FINDINGS: ??Scattered T2/flair hyperintensities in the supratentorial matter compatible chronic microvascular ischemic changes. ??Prior left lacunar infarcts. ??Gradient echo images are unremarkable. ??Diffusion-weighted images are unremarkable. ??Symmetric age commensurate volume loss. ??No hydrocephalus. Unremarkable orbits, orbital soft tissues, mastoid air cells. No acute calvarial abnormality. Unremarkable paranasal sinuses. ??Midline structures including the midbrain, visualized cervical cord and spine, pharynx, tongue base, epiglottis unremarkable. Visualized airway clear. Procedure Note Lluvia Minor MD - 01/19/2025 PROCEDURE: MR BRAIN WO CONTRAST INDICATION: Neuro deficit, acute, stroke suspected TECHNIQUE: Axial diffusion weighted, as well as T1 and T2-weightedmultiplanar imaging without intravenous contrast. COMPARISON: No priors available. FINDINGS: Scattered T2/flair hyperintensities in the supratentorialmatter compatible chronic microvascular ischemic changes. Prior leftlacunar infarcts. Gradient echo images are unremarkable.Diffusion-weighted images are unremarkable. Symmetric age commensuratevolume loss. No hydrocephalus. Unremarkable orbits, orbital soft tissues, mastoid air cells. No acutecalvarial abnormality. Unremarkable paranasal sinuses. Midline structuresincluding the midbrain, visualized cervical cord and spine, pharynx,tongue base, epiglottis unremarkable. Visualized airway clear. IMPRESSION: NO ACUTE INFARCT. -------- FINAL REPORT -------- Dictated By: Lluvia Minor Dictated Date: 01/19/2025 12:01 ET Assigned Physician: Lluvia Minor Reviewed and Electronically Signed By: Lluvia Minor Signed Date: 01/19/2025 12:04 ET Workstation ID: [id number] Transcribed By: Self Edit Transcribed Date: 01/19/2025 12:02 ET us Jerrell Cameron MD IM MRI PROCEDURES Final Re sult * (ABNORMAL) POCT Glucose, blood (01/19/2025 8:54 AM EDT) Only the most recent of23 resultswithin the time period is included. [facility] Glucose POCT 321(H) 70 - 100 mg/dL 01/19/2025 8:[address] [facility] Blood Capillary blood specimen / Unknown 01/19/2025 8:54 AM EDT 01/19/2025 8:55 AM EDT Jerrell Cameron MD LAB POINT OF CARE T EST DOCKED DEVICE UNSOLICITED RESULTS Final Result Performing Organization Address [facility]/ZIP Co de Phone Number [facility] [address] [place] [address], [place] [phone] * Troponin I high sensitivity (NOW and then in 1 hour) (01/19/2025 4:51 AM EDT) Only the most recent of2 resultswithin the time period is included. [facility] High Sensitivity Troponin I 16 <=54 ng/L LAB CHEMISTRY METHOD 01/19/2025 5:[address] [facility] Blood Venous blood specimen / Unknown Venipuncture / Unknown 01/19/2025 4:51 AM EDT 01/19/2025 4:[address] [facility] - 01/19/2025 5:24 AM EDT High levels of biotin in samples may falsely decrease hsTroponin values. ??Use caution when interpreting hsTroponin results in patients taking biotin who exhibit renal impairment (eGFR <60) or in patients taking more than 20 mg/day of biotin. Ragini ROSAS LAB BLOOD ORDERABLES Final Resul t Performing Organization Address City/[facility]/ZIP Co de Phone Number [facility] [address] [place] [address], [place] [phone] * XR Chest 1 View (01/19/2025 4:34 AM EDT) Anatomical Region Laterality Modality Body Radiographic Kaelyn ging 01/19/2025 10:3 7 AM EDT Impressions 01/19/2025 10:40 AM EDT FINDINGS/IMPRESSION: Postsurgical changes are noted in the lungs. ??Stable scarring of left costophrenic angle. ??No pneumonia or pulmonary edema. ??No pleural effusion or pneumothorax. ??Cardiac silhouette is normal in size. ??Bones are normal. -------- FINAL REPORT -------- Dictated By: DREW GUTIERREZ Dictated Date: 01/19/2025 10:37 ET Assigned Physician: DREW GUTIERREZ Reviewed and Electronically Signed By: DREW GUTIERREZ Signed Date: 01/19/2025 10:40 ET Workstation ID: [id number] Transcribed By: Self Edit Transcribed Date: 01/19/2025 10:37 ET Narrative 01/19/2025 10:40 AM EDT XR CHEST 1 VIEW INDICATION: ??Stroke, pain TECHNIQUE: XR CHEST 1 VIEW COMPARISON: 12/11/2024 PET/CT Procedure Note Drew Gutierrez MD - 01/19/2025 XR CHEST 1 VIEW INDICATION: Stroke, pain TECHNIQUE: XR CHEST 1 VIEW COMPARISON: 12/11/2024 PET/CT IMPRESSION: FINDINGS/IMPRESSION: Postsurgical changes are noted in the lungs. Stablescarring of left costophrenic angle. No pneumonia or pulmonary edema. Nopleural effusion or pneumothorax. Cardiac silhouette is normal in size.Bones are normal. -------- FINAL REPORT -------- Dictated By: DREW GUTIERREZ Dictated Date: 01/19/2025 10:37 ET Assigned Physician: DREW GUTIERREZ Reviewed and Electronically Signed By: DREW GUTIERREZ Signed Date: 01/19/2025 10:40 ET Workstation ID: [id number] Transcribed By: Self Edit Transcribed Date: 01/19/2025 10:37 ET us Jerrell Cameron MD IMG XR PROCEDURES Final Res ult * ECG 12 lead (01/19/2025 4:01 AM EDT) Ventricular Rate ECG 81 BPM GEMUSE Atrial Rate 81 BPM GEMUSE P-R Interval 132 ms GEMUSE QRS Duration 72 ms GEMUSE Q-T Interval 396 ms GEMUSE QTc 460 ms GEMUSE P Wave [place] 55 degrees GEMUSE R [place] 38 degrees GEMUSE T [place] 38 degrees GEMUSE ECG Interpretation Normal sinus rhythm Nonspecific T wave abnormality Abnormal ECG No previous ECGs available Confirmed by BRIE SKAGGS ([id number]) on 01/19/2025 8:06:58 PM GEMUSE 01/19/2025 4:01 AM EDT 01/19/2025 8:06 PM EDT Ragini ROSAS ECG ORDERABLES Final Result GEMUSE * (ABNORMAL) Lipid panel with reflex to direct LDL (01/19/2025 3:51 AM EDT) Cholesterol 126 0 - 200 mg/dL LAB CHEMISTRY METHOD 01/19/2025 3:[address] [facility] Triglycerides 153(H) 0 - 150 mg/dL LAB CHEMISTRY METHOD 01/19/2025 3:36 PM [facility] HDL 50 >=40 mg/dL LAB CHEMISTRY METHOD 01/19/2025 3:36 PM [facility] LDL Calculated 45 0 - 100 mg/dL LAB CHEMISTRY METHOD 01/19/2025 3:36 PM [facility] VLDL Cholesterol Russell 30.6 mg/dL LAB CHEMISTRY METHOD 01/19/2025 3:36 PM [facility] Non HDL Chol. (LDL+VLDL) 76 <145 mg/dL LAB CHEMISTRY METHOD 01/19/2025 3:36 PM [facility] Chol/HDL Ratio 2.5 0.0 - 4.4 LAB CHEMISTRY METHOD 01/19/2025 3:36 PM [facility] Blood Venous blood specimen / Unknown Venipuncture / Unknown 01/19/2025 3:51 AM EDT 01/19/2025 4:08 AM EDT us Annabelle ROSAS LAB BLOOD ORDERABLES Final Resul t [facility] [address] [place] [address], [place] [phone] * (ABNORMAL) CBC auto differential (01/19/2025 3:51 AM EDT) Only the most recent of5 resultswithin the time period is included. WBC 12.8(H) 4.8 - 10.8 K/mcL LAB HEMETOLOGY METHOD 01/19/2025 4:[address] [facility] RBC 3.30(L) 3.80 - 4.80 M/mcL LAB HEMETOLOGY METHOD 01/19/2025 4:[address] [facility] Hemoglobin 9.7(L) 11.5 - 16.0 g/dL LAB HEMETOLOGY METHOD 01/19/2025 4:[address] [facility] Hematocrit 30.5(L) 35.0 - 47.0 % LAB HEMETOLOGY METHOD 01/19/2025 4:[address] [facility] MCV 92.7 79.0 - 98.0 FL LAB HEMETOLOGY METHOD 01/19/2025 4:[address] [facility] MCH 29.5 27.0 - 32.0 pcg LAB HEMETOLOGY METHOD 01/19/2025 4:[address] [facility] MCHC 31.8(L) 32.0 - 37.0 g/dL LAB HEMETOLOGY METHOD 01/19/2025 4:51 AM [facility] RDW 13.2 11.0 - 15.0 % LAB HEMETOLOGY METHOD 01/19/2025 4:[address] [facility] Platelets 01/19/2025 4:51 AM [facility] Comment:Not measured. Giant platelets seen. Reviewed by slide MPV 10.4 7.0 - 11.0 FL LAB HEMETOLOGY METHOD 01/19/2025 4:51 AM [facility] NRBC 2.3(H) <1.0 % LAB HEMETOLOGY METHOD 01/19/2025 4:51 AM [facility] NRBC Absolute 0.29(H) <0.10 K/mcL LAB HEMETOLOGY METHOD 01/19/2025 4:51 AM [facility] Neutrophils Relative 69.0 % LAB HEMETOLOGY METHOD 01/19/2025 4:51 AM [facility] Lymphocytes Relative 15.5 % LAB HEMETOLOGY METHOD 01/19/2025 4:51 AM [facility] Monocytes Relative 10.9 % LAB HEMETOLOGY METHOD 01/19/2025 4:51 AM [facility] Eosinophils Relative 2.4 % LAB HEMETOLOGY METHOD 01/19/2025 4:51 AM [facility] Basophils Relative 0.6 % LAB HEMETOLOGY METHOD 01/19/2025 4:51 AM [facility] Immature Granulocytes Relative 1.6 % LAB HEMETOLOGY METHOD 01/19/2025 4:51 AM [facility] Neutrophils Absolute 8.82(H) 1.50 - 7.00 K/mcL LAB HEMETOLOGY METHOD 01/19/2025 4:51 AM [facility] Lymphocytes Absolute 1.98 1.00 - 5.00 K/mcL LAB HEMETOLOGY METHOD 01/19/2025 4:51 AM [facility] Monocytes Absolute 1.40(H) 0.20 - 1.00 K/mcL LAB HEMETOLOGY METHOD 01/19/2025 4:[address] [facility] Eosinophils Absolute 0.31 0.00 - 0.50 K/[facility] LAB HEMETOLOGY METHOD 01/19/2025 4:[address] [facility] Basophils Absolute 0.08 0.00 - 0.20 K/[facility] LAB HEMETOLOGY METHOD 01/19/2025 4:[address] [facility] Immature Granulocytes Absolute 0.21(H) 0.00 - 0.03 K/[facility] LAB HEMETOLOGY METHOD 01/19/2025 4:[address] [facility] Blood Venous blood specimen / Unknown Venipuncture / Unknown 01/19/2025 3:51 AM EDT 01/19/2025 4:08 AM EDT Ragini ROSAS LAB BLOOD ORDERABLES Final Resul t Performing Organization Address City/[facility]/ZIP Co de Phone Number [facility] [address] [place] [address], [place] [phone] * Activated partial thromboplastin time (01/19/2025 3:51 AM EDT) aPTT 30.1 24.1 - 39.3 sec LAB COAGULATION METHOD 01/19/2025 4:[address] [facility] Blood Venous blood specimen / Unknown Venipuncture / Unknown 01/19/2025 3:51 AM EDT 01/19/2025 4:08 AM EDT us Ragini ROSAS LAB BLOOD ORDERABLES Final Resul t [facility] [address] [place] [address], [place] [phone] * (ABNORMAL) Prothrombin time with INR (01/19/2025 3:51 AM EDT) Protime 14.7(H) 10.6 - 13.9 sec LAB COAGULATION METHOD 01/19/2025 4:[address] [facility] INR 1.2 LAB COAGULATION METHOD 01/19/2025 4:[address] [facility] Blood Venous blood specimen / Unknown Venipuncture / Unknown 01/19/2025 3:51 AM EDT 01/19/2025 4:08 AM EDT Ragini ROSAS LAB BLOOD ORDERABLES Final Resul t Performing Organization Address City/[facility]/ZIP Co de Phone Number [facility] [address] [place] [address], [place] [phone] * Thyroid stimulating hormone (01/19/2025 3:51 AM EDT) TSH 2.17 0.40 - 4.00 mcIU/mL LAB CHEMISTRY METHOD 01/19/2025 5:[address] [facility] Blood Venous blood specimen / Unknown Venipuncture / Unknown 01/19/2025 3:51 AM EDT 01/19/2025 4:08 AM EDT Annabelle ROSAS LAB BLOOD ORDERABLES Final Resul t Performing Organization Address [facility]/ZIP Co de Phone Number [facility] [address] [place] [address], [place] [phone] * (ABNORMAL) Magnesium (01/19/2025 3:51 AM EDT) Only the most recent of4 resultswithin the time period is included. Magnesium 1.8(L) 1.9 - 2.6 mg/dL LAB CHEMISTRY METHOD 01/19/2025 4:[address] [facility] Comment:Hemolysis present Blood Venous blood specimen / Unknown Venipuncture / Unknown 01/19/2025 3:51 AM EDT 01/19/2025 4:08 AM EDT Ragini ROSAS LAB BLOOD ORDERABLES Final Resul t Performing Organization Address [facility]/ZIP Co de Phone Number [facility] [address] [place] [address], [place] [phone] * (ABNORMAL) Hemoglobin A1c (01/19/2025 3:51 AM EDT) Hemoglobin A1C 8.9(H) <6.5 % LAB CHEMISTRY METHOD 01/19/2025 1:[address] [facility] Mean Bld Glu Estim. 209 mg/dL LAB CHEMISTRY METHOD 01/19/2025 1:[address] [facility] Blood Venous blood specimen / Unknown Venipuncture / Unknown 01/19/2025 3:51 AM EDT 01/19/2025 4:08 AM EDT Annabelle ROSAS LAB BLOOD ORDERABLES Final Resul t Performing Organization Address [facility] [[email or web address]] Co de Phone Number [facility] [address] [place] [address], [place] [phone] * (ABNORMAL) Basic metabolic panel (01/19/2025 3:51 AM EDT) Only the most recent of2 resultswithin the time period is included. Sodium 133 133 - 145 mmol/L LAB CHEMISTRY METHOD 01/19/2025 4:[address] [facility] Potassium 4.9 3.5 - 5.5 mmol/L LAB CHEMISTRY METHOD 01/19/2025 4:[address] [facility] Comment:Hemolysis present Chloride 100 96 - 110 mmol/L LAB CHEMISTRY METHOD 01/19/2025 4:[address] [facility] CO2 25 21 - 32 mmol/L LAB CHEMISTRY METHOD 01/19/2025 4:[address] [facility] Anion Gap 8 3 - 11 LAB CHEMISTRY METHOD 01/19/2025 4:[address] [facility] Glucose 307(H) 70 - 100 mg/dL LAB CHEMISTRY METHOD 01/19/2025 4:[address] [facility] BUN 22 5 - 25 mg/dL LAB CHEMISTRY METHOD 01/19/2025 4:[address] [facility] Creatinine 1.09 0.50 - 1.10 mg/dL LAB CHEMISTRY METHOD 01/19/2025 4:[address] [facility] eGFR 53(L) >=60 mL/min/1. 73m2 LAB CHEMISTRY METHOD 01/19/2025 4:[address] [facility] Comment:Calculation based on the??Chronic Kidney Disease Epidemiology Collaboration (CKD-EPI) equation refit??without adjustment for race. BUN/Creatinine Ratio 20.2 LAB CHEMISTRY METHOD 01/19/2025 4:[address] [facility] Calcium 8.9 8.5 - 10.5 mg/dL LAB CHEMISTRY METHOD 01/19/2025 4:[address] [facility] Blood Venous blood specimen / Unknown Venipuncture / Unknown 01/19/2025 3:51 AM EDT 01/19/2025 4:08 AM EDT Ragini ROSAS LAB BLOOD ORDERABLES Final Resul t [facility] [address] [place] [address], * CT Head Stroke wo Contrast (01/19/2025 3:48 AM EDT) Anatomical Region Laterality Modality Head and Neck Computed Tomogra phy 01/19/2025 3:47 AM EDT Addenda Addendum by Ruddy Kwan MD on 01/19/2025 3:50 AM EDT ADDENDUM: This report was discussed with RAGINI ROSADO on January 19, 2025 03:50:00 EDT. This document has been electronically signed by: Bernadette Torres on 01/19/2025 03:50:31 Impressions 01/19/2025 3:47 AM EDT 1. No acute intracranial findings. 2. Chronic ischemic disease. This document has been electronically signed by: Ruddy Kwan MD on 01/19/2025 03:47:34 Narrative 01/19/2025 3:47 AM EDT INDICATION: Neuro deficit, acute, stroke suspected CT HEAD without contrast COMPARISON: None FINDINGS: No acute intracranial hemorrhage, acute infarct or intracranial mass. No mass effect, midline shift or extra-axial fluid collections. Periventricular white matter hypodensity and small bilateral basal ganglia hypodensities most likely due to chronic ischemia. Seay-white matter differentiation is preserved. Mild generalized atrophy. No hydrocephalus. Basal cisterns are patent. Carotid and vertebral artery calcification. Pituitary gland is unremarkable. Orbits are normal. No acute soft tissue or bony findings. Sinuses and mastoids are clear. Procedure Note Ruddy Kwan MD - 01/19/2025 INDICATION: Neuro deficit, acute, stroke suspected CT HEAD without contrast COMPARISON: None FINDINGS: No acute intracranial hemorrhage, acute infarct or intracranial mass. No mass effect, midline shift or extra-axial fluid collections. Periventricular white matter hypodensity and small bilateral basalganglia hypodensities most likely due to chronic ischemia. Seay-white matter differentiation is preserved. Mild generalized atrophy. Nohydrocephalus. Basal cisterns are patent. Carotid and vertebral artery calcification. Pituitary gland is unremarkable. Orbits are normal. No acute soft tissue or bony findings. Sinuses and mastoids are clear. IMPRESSION: 1. No acute intracranial findings. 2. Chronic ischemic disease. This document has been electronically signed by: Ruddy Kwan MDon 01/19/2025 03:47:34 Ragini ROSAS [facility] CT PROCEDURES Edited Result - Final * CT Angio Head/Neck Stroke wo and/or w Contrast (01/19/2025 3:48 AM EDT) Anatomical Region Laterality Modality Head and Neck Computed Tomogra phy 01/19/2025 4:23 AM EDT Impressions 01/19/2025 4:23 AM EDT 1. No acute vascular findings. 2. Emphysema, right upper lobectomy and multiple left upper lobe pulmonary nodules as above. 3. Atherosclerotic disease with severe proximal left ICA stenosis. Recommend follow-up carotid ultrasound. 4. Additional nonemergent findings as above. This document has been electronically signed by: Ruddy Kwan MD on 01/19/2025 04:23:50 Narrative 01/19/2025 4:23 AM EDT INDICATION: Neuro deficit, acute, stroke suspected CTA head and neck with contrast. MIPs were obtained. Comparison: None FINDINGS: Vasculature: Limited assessment of the distal internal carotid arteries due to motion artifact. No large vessel occlusion, dissection or aneurysm. Diminutive right vertebral artery and dominant left vertebral artery. Moderate bilateral carotid bifurcation calcification [id number] with severe short-segment proximal left ICA stenosis. Correlate with carotid ultrasound velocities. Additional findings: Moderate bilateral upper lobe emphysema. Right upper lobe lobectomy changes. Multiple left upper lobe pulmonary nodules with the largest measuring 3 mm image 499 series 2. Follow-up per Fleischner criteria. Multilevel cervical and thoracic spine disc disease and facet arthropathy. Cervical thoracic scoliosis. Otherwise unremarkable Procedure Note Ruddy Kwan MD - 01/19/2025 INDICATION: Neuro deficit, acute, stroke suspected CTA head and neck with contrast. MIPs were obtained. Comparison: None FINDINGS: Vasculature: Limited assessment of the distal internal carotid arteries due to motion artifact. No large vessel occlusion, dissection oraneurysm. Diminutive right vertebral artery and dominant left vertebral artery. Moderate bilateral carotid bifurcation calcification [id number] with severe short-segment proximal left ICA stenosis. Correlate with carotid ultrasound velocities. Additional findings: Moderate bilateral upper lobe emphysema. Rightupper lobe lobectomy changes. Multiple left upper lobe pulmonary nodules with the largest measuring 3 mm image 499 series 2. Follow-up per Fleischner criteria. Multilevel cervical and thoracic spine disc disease and facet arthropathy. Cervical thoracic scoliosis. Otherwise unremarkable IMPRESSION: 1. No acute vascular findings. 2. Emphysema, right upper lobectomy and multiple left upper lobepulmonary nodules as above. 3. Atherosclerotic disease with severe proximal left ICA stenosis. Recommend follow-up carotid ultrasound. 4. Additional nonemergent findings as above. This document has been electronically signed by: Nessa Horowitz 01/19/2025 04:23:50 Ragini ROSAS [facility] CT PROCEDURES Final Result * (ABNORMAL) Complete blood count (01/11/2025 6:19 AM EDT) Only the most recent of3 resultswithin the time period is included. WBC 11.1(H) 4.8 - 10.8 K/mcL LAB HEMETOLOGY METHOD 01/11/2025 7:17 AM [facility] RBC 3.70(L) 3.80 - 4.80 M/mcL LAB HEMETOLOGY METHOD 01/11/2025 7:17 AM [facility] Hemoglobin 11.1(L) 11.5 - 16.0 g/dL LAB HEMETOLOGY METHOD 01/11/2025 7:17 AM [facility] Hematocrit 34.7(L) 35.0 - 47.0 % LAB HEMETOLOGY METHOD 01/11/2025 7:17 AM [facility] MCV 93.0 79.0 - 98.0 FL LAB HEMETOLOGY METHOD 01/11/2025 7:17 AM [facility] MCH 29.8 27.0 - 32.0 pcg LAB HEMETOLOGY METHOD 01/11/2025 7:17 AM [facility] MCHC 32.0 32.0 - 37.0 g/dL LAB HEMETOLOGY METHOD 01/11/2025 7:17 AM [facility] RDW 12.6 11.0 - 15.0 % LAB HEMETOLOGY METHOD 01/11/2025 7:17 AM [facility] Platelets 279 130 - 400 K/mcL LAB HEMETOLOGY METHOD 01/11/2025 7:17 AM [facility] MPV 11.1(H) 7.0 - 11.0 FL LAB HEMETOLOGY METHOD 01/11/2025 7:[address] [facility] NRBC 0.2 <1.0 % LAB HEMETOLOGY METHOD 01/11/2025 7:[address] [facility] NRBC Absolute 0.02 <0.10 K/mcL LAB HEMETOLOGY METHOD 01/11/2025 7:[address] [facility] Blood Venous blood specimen / Unknown Venipuncture / Unknown 01/11/2025 6:19 AM EDT 01/11/2025 7:03 AM EDT Aretha ROSAS LAB BLOOD ORDERABLES Final Resu lt Performing Organization Address [facility]/ZIP Co de Phone Number [facility] [address] [place] [address], [place] [phone] * (ABNORMAL) Phosphorus (01/11/2025 6:19 AM EDT) Only the most recent of3 resultswithin the time period is included. Phosphorus 2.2(L) 2.5 - 4.5 mg/dL LAB CHEMISTRY METHOD 01/11/2025 9:[address] [facility] Blood Venous blood specimen / Unknown Venipuncture / Unknown 01/11/2025 6:19 AM EDT 01/11/2025 7:03 AM EDT Aretha ROSAS LAB BLOOD ORDERABLES Final Resu lt Performing Organization Address City/[facility]/ZIP Co de Phone Number [facility] [address] [place] [address], [place] [phone] * Amylase, body fluid (01/10/2025 9:59 AM EDT) Amylase, Fluid 76 See Comment unit/L LAB CHEMISTRY METHOD 01/10/2025 11:[address] [facility] Drainage 01/10/2025 9:59 AM EDT 01/10/2025 10:[address] [facility] - 01/10/2025 11:04 AM EDT No reference ranges have been established for body fluids. Clinical correlation recommended. Aretha ROSAS LAB BODY FLUIDS AND STOOLS ORDE RABLES Final Result Performing Organization Address City/[facility]/ZIP Co de Phone Number [facility] [address] [place] [address], [place] [phone] * Amylase (01/10/2025 6:17 AM EDT) Pathologist [facility] Amylase 28 25 - 115 unit/L LAB CHEMISTRY METHOD 01/10/2025 7:[address] [facility] Blood Venous blood specimen / Unknown Venipuncture / Unknown 01/10/2025 6:17 AM EDT 01/10/2025 7:09 AM EDT Aretha ROSAS LAB BLOOD ORDERABLES Final Resu lt Performing Organization Address [facility]/ZIP Co de Phone Number [facility] [address] [place] [address], [place] [phone] * (ABNORMAL) Comprehensive metabolic panel (01/10/2025 6:17 AM EDT) Only the most recent of5 resultswithin the time period is included. Pathologist [facility] Sodium 143 133 - 145 mmol/L LAB CHEMISTRY METHOD 01/10/2025 9:[address] [facility] Potassium 3.7 3.5 - 5.5 mmol/L LAB CHEMISTRY METHOD 01/10/2025 9:[address] [facility] Chloride 109 96 - 110 mmol/L LAB CHEMISTRY METHOD 01/10/2025 9:[address] [facility] CO2 24 21 - 32 mmol/L LAB CHEMISTRY METHOD 01/10/2025 9:19 AM [facility] Anion Gap 10 3 - 11 LAB CHEMISTRY METHOD 01/10/2025 9:19 AM [facility] Glucose 179(H) 70 - 100 mg/dL LAB CHEMISTRY METHOD 01/10/2025 9:19 AM [facility] BUN 18 5 - 25 mg/dL LAB CHEMISTRY METHOD 01/10/2025 9:19 AM [facility] Creatinine 0.79 0.50 - 1.10 mg/dL LAB CHEMISTRY METHOD 01/10/2025 9:19 AM [facility] eGFR 79 >=60 mL/min/1. 73m2 LAB CHEMISTRY METHOD 01/10/2025 9:19 AM [facility] Comment:Calculation based on the??Chronic Kidney Disease Epidemiology Collaboration (CKD-EPI) equation refit??without adjustment for race. BUN/Creatinine Ratio 22.8 LAB CHEMISTRY METHOD 01/10/2025 9:19 AM [facility] Calcium 8.2(L) 8.5 - 10.5 mg/dL LAB CHEMISTRY METHOD 01/10/2025 9:19 AM [facility] AST (SGOT) 25 10 - 42 unit/L LAB CHEMISTRY METHOD 01/10/2025 9:19 AM [facility] ALT (SGPT) 28 10 - 60 unit/L LAB CHEMISTRY METHOD 01/10/2025 9:19 AM [facility] Alkaline Phosphatase 55 42 - 121 unit/L LAB CHEMISTRY METHOD 01/10/2025 9:19 AM [facility] Total Protein 5.3(L) 6.0 - 8.0 g/dL LAB CHEMISTRY METHOD 01/10/2025 9:19 AM [facility] Albumin 2.4(L) 3.2 - 5.0 g/dL LAB CHEMISTRY METHOD 01/10/2025 9:19 AM [facility] Total Bilirubin 1.5(H) 0.0 - 1.4 mg/dL LAB CHEMISTRY METHOD 01/10/2025 9:[address] [facility] Blood Venous blood specimen / Unknown Venipuncture / Unknown 01/10/2025 6:17 AM EDT 01/10/2025 7:09 AM EDT Aretha ROSAS LAB BLOOD ORDERABLES Final Resu lt Performing Organization Address [facility]/ZIP Co de Phone Number [facility] [address] [place] [address], * (ABNORMAL) Creatinine serum (01/07/2025 6:20 PM EDT) Creatinine 1.11(H) 0.50 - 1.10 mg/dL LAB CHEMISTRY METHOD 01/07/2025 7:[address] [facility] eGFR 52(L) >=60 mL/min/1. 73m2 LAB CHEMISTRY METHOD 01/07/2025 7:[address] [facility] Comment:Calculation based on the??Chronic Kidney Disease Epidemiology Collaboration (CKD-EPI) equation refit??without adjustment for race. Blood Venous blood specimen / Unknown Venipuncture / Unknown 01/07/2025 6:20 PM EDT 01/07/2025 6:42 PM EDT Diogenes Medrano MD LAB BLOOD ORDERABLES Final Result Performing Organization Address [facility]/ZIP Co de Phone Number [facility] [address] [place] [address], [place] [phone] * (ABNORMAL) POCT Arterial basic metabolic profile, HH (01/07/2025 2:54 PM EDT) Only the most recent of2 resultswithin the time period is included. Glucose Arterial POCT 244(H) 70 - 100 mg/dL 01/07/2025 4:[address] [facility] Sodium Arterial POCT 140 135 - 145 mmol/L 01/07/2025 4:[address] [facility] Potassium Arterial POCT 4.1 3.5 - 5.5 mmol/L 01/07/2025 4:[address] [facility] Chloride Arterial POCT 106 96 - 110 mmol/L 01/07/2025 4:[address] [facility] TCO2 Arterial POCT 22 21 - 32 mmol/L 01/07/2025 4:[address] [facility] BUN, Arterial POCT 13 5 - 25 mg/dL 01/07/2025 4:[address] [facility] Creatinine Arterial POCT 1.1 0.5 - 1.1 mg/dL 01/07/2025 4:[address] [facility] Ionized Calcium Arterial POCT 4.80 4.50 - 5.30 mg/dL 01/07/2025 4:[address] [facility] Hemoglobin Arterial POCT 13.9 11.5 - 16.0 g/dL 01/07/2025 4:[address] [facility] Hematocrit Arterial POCT 41 35 - 47 % 01/07/2025 4:[address] [facility] Blood Arterial blood specimen / Unknown 01/07/2025 2:54 PM EDT 01/07/2025 4:10 PM EDT us Diogenes Medrano MD LAB POINT OF CARE TEST DOCKED DEVICE UNSOLICITED RESULTS Final Result [facility] [address] [place] [address], [place] [phone] * Tissue exam (01/07/2025 2:09 PM EDT) Addendum Estimated size of IPMN - 0.7 cm. Note: Estimated size of IPMN is based on IPMN present on two consecutive slide sections with average slide thickness of 0.35 cm. 1:09 PM [facility] Addendum electronically signed by Aline Palacio MD on 01/12/2025 at 1:09 PM Final Diagnosis A. Pancreas, distal pancreatectomy and spleen: - Invasive moderately differentiated ductal adenocarcinoma. (See cancer synoptic report) - Tumor location: pancreatic tail. - Tumor size: 4.2 cm. - Tumor extent: tumor focally involves jaciel-pancreatic adipose tissue. - Positive for lymphovascular and perineural invasion. - Seventeen benign lymph nodes, negative for carcinoma (0/17). - All margin(s) is/are negative for invasive carcinoma. - Additional findings: intraductal papillary mucinous neoplasm (IPMN), low grade, present at pancreatic parenchymal margin, benign spleen with congestion. Note: Case was reviewed in intradepartmental consensus conference with consensus agreement in IPMN, low grade, present at distal pancreatic parenchymal margin, and pancreatic margin is negative for invasive adenocarcinoma. Immunostains for MMR proteins and HER2 will be performed, and an addendum report will be issued. 1:09 PM [facility] ([facility] Gross Description A. Pancreas, distal pancreatectomy and spleen: Labeled pancreas, distal . Received fresh for frozen section diagnosis is a 201 g distal pancreatectomy specimen with attached spleen and adipose tissue. The pancreas alone is 6.9 x 2.9 x 2 cm, and the spleen measures 9 x 7.8 x 4 cm. The pancreatic margin is stapled. The staple removed and the underlying surface is inked orange. The anterior aspect of pancreas is inked black, posterior blue, inferior green. The cut surfaces of the pancreas displays a 4.2 x 2.1 x 1.7 cm irregular firm meraz-white granular mass which invades into the adjacent peripancreatic adipose tissue. The mass comes to 0.1 cm of the posterior margin, 0.7 from the anterior surface, 0.1 cm from the inferior surface, 2 cm from the superior surface, 1.2 cm from the distal pancreatic parenchymal margin (after frozen section). The mass is located 2.5 cm from the spleen. The minimal uninvolved proximal pancreas is meraz and lobular. The splenic capsule is pink-meraz, smooth and glistening. The cut surfaces are dark red with prominent white pulp. Multiple possible lymph nodes are identified with the attached peripancreatic fat, ranging from 0.2 cm to 0.9 cm in greatest dimension. Gross photographs are taken. Senior Auditor sections are submitted as follows: 1, regional airline pilot section mass (total formalin fixation time for this block only is 13 hours) 2, frozen section remnant one, en face pancreatic margin closest to mass, one piece 3, frozen section remnant two, mass, one piece 4, tissue directly adjacent to en face pancreatic margin (not a true margin), one piece 5, mass to adjacent pancreas, one piece 6-8, mass to anterior and posterior margins, one piece each 9, mass into peripancreatic adipose tissue, two pieces 10, uninvolved pancreas, one piece 11 and 12, spleen, one piece each 13 and 14, multiple possible lymph nodes in toto each, three pieces and five pieces, respectively 15-17, one bisected possible lymph node each, KELLY 5 1:09 PM EDT [facility] Intraoperative Consultation A. Pancreas, distal pancreatectomy and spleen: Frozen section diagnosis (two blocks frozen) Distal pancreas and spleen: Ductal adenocarcinoma (block 2). Inked en face margin is negative for invasive carcinoma (after removal of the staple line, the half of the en face margin grossly closest to the tumor is frozen) (block 1). Low grade mucinous intraductal proliferation present at en face margin. Slides were reviewed by Dr. Aline Palacio, who concurs that there is no invasive carcinoma at the en face margin (block 1). The results were discussed and slides were reviewed with Dr. Diogenes Medrano. 5 1:09 PM EDT [facility] Synoptic Checklist PANCREAS (EXOCRINE) PANCREAS (EXOCRINE): RESECTION - All Specimens 8th Edition - Protocol posted: 03/07/2022 SPECIMEN ?? Procedure: ?Partial pancreatectomy, pancreatic tail TUMOR ?? Tumor Site: ?Pancreatic tail ?? Histologic Type: ?Ductal adenocarcinoma (NOS) ?? Histologic Grade: ?G2, moderately differentiated ?? Tumor Size: ?Greatest Dimension (Centimeters): 4.2 cm ?? Site(s) Involved by Direct Tumor Extension: ?Peripancreatic soft tissues ? : ?Retroperitoneal soft tissue ?? Treatment Effect: ?No known presurgical therapy ?? Lymphovascular Invasion: ?Present ?? Perineural Invasion: ?Present MARGINS ?? Margin Status for Invasive Carcinoma: ?All margins negative for invasive carcinoma ? Closest Margin(s) to Invasive Carcinoma: ?Distal pancreatic parenchymal: estimated distance by adding frozen section thickness (0.3 cm) and 1.2 cm gross distance of tumor to parenchymal margin after frozen section. ? Distance from Invasive Carcinoma to Closest Margin: ?1.5 cm ?? Margin Status for Dysplasia and Intraepithelial Neoplasia: ?intraductal pancreatic mucinous neoplasma, low grade present at margin REGIONAL LYMPH NODES ?? Regional Lymph Node Status: ? : ?All regional lymph nodes negative for tumor ? Number of Lymph Nodes Examined: ?17 PATHOLOGIC STAGE CLASSIFICATION ??(pTNM, AJCC 8th Edition) ?? Reporting of pT, pN, and (when applicable) pM categories is based on information available to the pathologist at the time the report is issued. As per the AJCC (Chapter 1, 8th Ed.) it is the managing physician's responsibility to establish the final pathologic stage based upon all pertinent information, including but potentially not limited to this pathology report. ?? pT Category: ?pT3 ?? pN Category: ?pN0 ADDITIONAL FINDINGS ?? Additional Findings: ?Chronic pancreatitis ?? Additional Findings: ?intraductal papillary mucinous neoplasm, low grade Quantitative IHC Biomarker Reporting (Added in Addendum) QUANTITATIVE IHC BIOMARKER REPORTING - A Protocol posted: 06/05/2023 SPECIMEN INFORMATION ?? Case Identifier: ?[id number] ?? Block Designation: ?A6 ?? Anatomic Site: ?Distal pancreas ?? Diagnosis: ?Adenocarcinoma ?? Biomarker(s) Assessed: ?MMR IHC ? MMR IHC Results: ? Interpretation: ?No loss of nuclear expression of MMR proteins ? MMR Staining: ? Nuclear MLH1 staining: ?Intact ? Nuclear PMS2 staining: ?Intact ? Nuclear MSH2 staining: ?Intact ? Nuclear MSH6 staining: ?Intact ? MMR IHC Methods: ? Controls: ?Internal control cells present; expected immunoreactivity ? Controls: ?External controls available, expected immunoreactivity ? Assay Information: ?Laboratory-develop ed test ?? Biomarker(s) Assessed: ?HER2 IHC ? HER2 IHC Results: ? Interpretation: ?Negative ? Scoring System: ?Breast ? Score: ?0 ? HER2 IHC Methods: ? Antibody: ?SP3 ? Controls: ?External controls available, expected immunoreactivity ? Assay Information: ?Laboratory-develop ed test 5 1:09 PM [facility] Disclaimer NOTE: The immunohistochemical tests and in situ hybridization tests were developed and their performance characteristics were determined by [facility]. They have not been cleared or approved by the U.S. Food and Drug Administration. The FDA has determined that such clearance or approval is not necessary. These tests are used for clinical purposes. They should not be regarded as investigational or for research. This laboratory is certified under the Clinical Laboratory Improvement Amendments of 1988 (CLIA) as qualified to perform high complexity clinical laboratory testing. (controls appropriate) Unless otherwise specified, all tissue is 10% NB formalin fixed and paraffin embedded. 5 1:09 PM [facility] Tissue Pancreatic structure / Unknown 01/07/2025 2:09 PM EDT 01/07/2025 2:19 PM EDT us Diogenes Medrano MD LAB PATHOLOGY ORDERABLES E dited Result - Final [facility] [address] [place] [address], [place] [phone] * TH AN ENDOTRACHEAL(NO CHARGE) (01/07/2025 11:39 AM EDT) Regine Renae CRNA - 01/07/2025 11:39 AM EDT Regine Jade CRNA ? 01/07/2025 11:41 AM General Information and Staff Patient location during procedure: OR Anesthesiologist: Johnathon Moses DO Resident/LEAD SPRINKLER: Regine Jade CRNA Performed: resident/LEAD SPRINKLER/CAA Performed by: Regine Jade CRNA Authorized by: Johnathon Moses DO ?? Intubation Urgency: elective Final Airway Details Successful airway: ETT Cuffed: yes Successful intubation technique: direct laryngoscopy Facilitating devices/methods: cricoid pressure Endotracheal tube insertion site: oral Blade: Johana Blade size: #3 ETT size (mm): 7.0 Cormack-Lehane Classification: grade IIa - partial view of glottis Placement verified by: chest auscultation and capnometry Measured from: lips ETT to lips (cm): 22 Number of attempts at approach: 1 Number of other approaches attempted: 0Final airway type: endotracheal airway Indications and Patient Condition Indications for airway management: anesthesia Spontaneous ventilation: present Sedation level: Yes Preoxygenated: yes Soft Tissue Damage: No Dentition Unchanged: Yes Patient position: sniffing Mask difficulty assessment: 1 - vent by mask Start Time: 01/07/2025 11:40 AMStop Time: 01/07/2025 11:40 AM Johnathon Moses DO ANESTHESIA ORDERABLES Final Res ult * TH AN ARTERIAL LINE (CHARGE) (01/07/2025 11:34 AM EDT) Johnathon Tejeda DO - 01/07/2025 11:34 AM EDT Johnathon Moses DO ? 01/07/2025 12:38 PM Arterial Line Performed by: Regine Jade CRNA Authorized by: Johnathon Moses DO ??Consent: Verbal consent obtained. Written consent obtained. Risks and benefits: risks, benefits and alternatives were discussed Consent given by: patient Patient understanding: patient states understanding of the procedure being performed Patient consent: the patient's understanding of the procedure matches consent given Procedure consent: procedure consent matches procedure scheduled Relevant documents: relevant documents present and verified Test results: test results available and properly labeled Site marked: the operative site was not marked Required items: required blood products, implants, devices, and special equipment available Patient identity confirmed: arm band Time out: Immediately prior to procedure a time out was called to verify the correct patient, procedure, equipment, microcomputer support specialist and site/side marked as required. Preparation: Patient was prepped and draped in the usual sterile fashion. Indications: hemodynamic monitoring Location: right radial Anesthesia method: geta. Sedation: Patient sedated: no Cachorro's test normal: yes Needle gauge: 20 Seldinger technique: Seldinger technique used Number of attempts: 3 Post-procedure: dressing applied Post-procedure CMS: normal Patient tolerance: patient tolerated the procedure well with no immediate complications Comments: Arterial line done under sterile conditions with ultrasound. ?? 1st attempt LEAD SPRINKLER left radial artery with Ultrasound. No flash 2nd Attempt Attending left radial artery, good flow wire did not thread, aborted. 3 attempt right radial with ultrasound artery in view. Arrow catheter advanced, punctured artery, good flow up arrow. Advanced wire without resistance. Catheter advanced easily. Pulsatile flow. Catheter chhaya back and flushed. Catheter secured with Tegaderm and tape. Pt tolerated procedure well. Start Time: 01/07/2025 11:34 AMStop Time: 01/07/2025 11:34 AM Staffing Anesthesiologist: Johnathon Moses DO Resident/LEAD SPRINKLER: Regine Jade CRNA Johnathon Moses DO ANESTHESIA ORDERABLES Edited Re sult - Final * (ABNORMAL) Cancer antigen 19-9 (12/23/2024 10:17 AM EDT) CA 19-9 168.1(H) <=35 U/mL 12/25/2024 10:30 AM EDT [facility] Comment: The Siemens Advia Centaur CA199 Chemiluminescent Immunoassay is used. Results obtained with different assay methods or kits cannot be used interchangeably. Results cannot be interpreted as absolute evidence of the presence or absence of malignant disease. Test performed at [facility], [address], [place], [place] ??[address] ? [phone] Sangita Sharma MD, PhD - [employer] Operator Blood Venous blood specimen / Unknown Venipuncture / Unknown 12/23/2024 10:17 AM EDT 12/23/2024 10:34 AM EDT Diogenes Medrano MD LAB BLOOD ORDERABLES Final Result [facility] [address] [place] [address] * Type and screen (12/23/2024 10:17 AM EDT) ABO Group O 12/23/2024 11:[address] [facility] Rh Type Positive 12/23/2024 11:[address] [facility] Antibody Screen Negative 12/23/2024 11:[address] [facility] Blood Venous blood specimen / Unknown Venipuncture / Unknown 12/23/2024 10:17 AM EDT 12/23/2024 10:34 AM EDT Diogenes Medrano MD LAB BLOOD BANK TEST ORDERA BLES Final Result Performing Organization Address City/[facility]/ZIP Co de Phone Number [facility] [address] [place] [address], * CEA (12/23/2024 10:17 AM EDT) CEA 2.8 0.0 - 5.0 ng/mL LAB CHEMISTRY METHOD 12/23/2024 12:[address] [facility] Blood Venous blood specimen / Unknown Venipuncture / Unknown 12/23/2024 10:17 AM EDT 12/23/2024 10:34 AM EDT Narrative [facility]) [facility] - 12/23/2024 12:07 PM EDT The Siemens Advia Centaur Chemiluminescent Immunoassay is used. Results obtained with different assay methods or kits cannot be used interchangeably. Results cannot be interpreted as absolute evidence of the presence or absence of malignant disease. Diogenes Medrano MD LAB BLOOD ORDERABLES Final Result [facility] ([facility]) [facility] [address] [place] [address], * COLONOSCOPY Anesthesia - MAC; [facility] ENDOSCOPY (12/17/2024 10:44 AM EDT) Anatomical Region Laterality Modality Endoscopy 12/17/2024 10:2 8 AM EDT Impressions 12/17/2024 10:46 AM EDT - Patent [id number] ileo-colonic anastomosis, ? characterized by healthy appearing mucosa. ? - Diverticulosis in the sigmoid colon. ? - Internal hemorrhoids. ? - The examination was otherwise normal. ? - No specimens collected. Recommendation: ?- Discharge patient to home. ? - Repeat colonoscopy in 5 years for surveillance. Narrative 12/17/2024 10:[address] [facility] Patient Name: Corin Alvarenga Procedure Date: 12/17/2024 10:28 AM Date of : 1950 Age: 74 Gender: Female Note Status: Finalized Attending MD: Valente Camarena MD, Procedure Date No Time: 12/17/2024 Procedure: ? Colonoscopy Indications: ? High risk colon cancer surveillance: Personal history ? of colon cancer Providers: ? Valente Camarena MD Referring MD: ?Valente Camarena MD Medicines: ? Monitored Anesthesia Care Complications: ? No immediate complications. Estimated Blood Loss: ? Estimated blood loss: none. Procedure: ? Pre-Anesthesia Assessment: ? - Prior to the procedure, a History and Physical was ? performed, and patient medications and allergies were ? reviewed. The patient is competent. The risks and ? benefits of the procedure and the sedation options and ? risks were discussed with the patient. All questions ? were answered and informed consent was obtained. ? Patient identification and proposed procedure were ? verified by the physician, the nurse, the dean of girls ? and the inventory technician in the pre-procedure area in the ? endoscopy suite. Mental Status Examination: alert and ? oriented. Airway Examination: normal oropharyngeal ? airway and neck mobility. Respiratory Examination: ? clear to auscultation. CV Examination: normal. ? Prophylactic Antibiotics: The patient does not require ? prophylactic antibiotics. Prior Anticoagulants: The ? patient has taken no anticoagulant or antiplatelet ? agents. ASA Grade Assessment: III - A patient with ? severe systemic disease. After reviewing the risks and ? benefits, the patient was deemed in satisfactory ? condition to undergo the procedure. The anesthesia ? plan was to use monitored anesthesia care (MAC). ? Immediately prior to administration of medications, ? the patient was re-assessed for adequacy to receive ? sedatives. The heart rate, respiratory rate, oxygen ? saturations, blood pressure, adequacy of pulmonary ? ventilation, and response to care were monitored ? throughout the procedure. The physical status of the ? patient was re-assessed after the procedure. ? After I obtained informed consent, the scope was ? passed under direct vision. Throughout the procedure, ? the patient's blood pressure, pulse, and oxygen ? saturations were monitored continuously. The ? Colonoscope was introduced through the anus and ? advanced to the ileocolonic anastomosis. The ? colonoscopy was performed without difficulty. The ? patient tolerated the procedure well. The quality of ? the bowel preparation was good. Findings: ?The perianal and digital rectal examinations were ? normal. ? There was evidence of a prior [id number]-[id number]-pycf ? ileo-colonic anastomosis in the ascending colon. This ? was patent and was characterized by healthy appearing ? mucosa. ? Scattered small-mouthed diverticula were found in the ? sigmoid colon. ? Internal hemorrhoids were found during retroflexion. ? The hemorrhoids were Grade I (internal hemorrhoids ? that do not prolapse). ? The exam was otherwise without abnormality. Procedure Code(s): ? --- Professional --- ? G0105, Colorectal cancer screening; colonoscopy on ? individual at high risk Diagnosis Code(s): ? --- Professional --- ? Z85.038, Personal history of other malignant neoplasm ? of large intestine CPT copyright 2020 [employer]. All rights reserved. The codes documented in this report are preliminary and upon purchasing department clerk review may be revised to meet current compliance requirements. Valente Camarena MD 12/17/2024 10:46:21 AM This report has been signed electronically.Valente Camarena MD Number of Addenda: 0 Note Initiated On: 12/17/2024 10:28 AM Scope Withdrawal Time: 0 hours 6 minutes 55 seconds Scope In: 10:35:31 AM Scope Out: 10:45:39 AM ? Endoscopy Department at [facility] - [address] [place] [address], ? [place] [address] Procedure Note Valente Camarena MD - 12/17/2024 [facility] Patient Name: Corin Alvarenga Procedure Date: 12/17/2024 10:28 AM Date of : 1950 Age: 74 Gender: Female Note Status: Finalized Attending MD: Valente Camarena MD, Procedure Date No Time: 12/17/2024 Procedure: Colonoscopy Indications: High risk colon cancer surveillance: Personalhistory of colon cancer Providers: Valente Camarena MD Referring MD: Valente Camarena MD Medicines: Monitored Anesthesia Care Complications: No immediate complications. Estimated Blood Loss: Estimated blood loss: none. Procedure: Pre-Anesthesia Assessment: - Prior to the procedure, a History and Physicalwas performed, and patient medications and allergieswere reviewed. The patient is competent. The risks and benefits of the procedure and the sedation optionsand risks were discussed with the patient. Allquestions were answered and informed consent was obtained. Patient identification and proposed procedure were verified by the physician, the nurse, theanesthetist and the inventory technician in the pre-procedure area in the endoscopy suite. Mental Status Examination: alertand oriented. Airway Examination: normal oropharyngeal airway and neck mobility. Respiratory Examination: clear to auscultation. CV Examination: normal. Prophylactic Antibiotics: The patient does notrequire prophylactic antibiotics. Prior Anticoagulants: The patient has taken no anticoagulant or antiplatelet agents. ASA Grade Assessment: III - A patient with severe systemic disease. After reviewing the risksand benefits, the patient was deemed in satisfactory condition to undergo the procedure. The anesthesia plan was to use monitored anesthesia care (MAC). Immediately prior to administration of medications, the patient was re-assessed for adequacy to receive sedatives. The heart rate, respiratory rate, oxygen saturations, blood pressure, adequacy of pulmonary ventilation, and response to care were monitored throughout the procedure. The physical status ofthe patient was re-assessed after the procedure. After I obtained informed consent, the scope was passed under direct vision. Throughout theprocedure, the patient's blood pressure, pulse, and oxygen saturations were monitored continuously. The Colonoscope was introduced through the anus and advanced to the ileocolonic anastomosis. The colonoscopy was performed without difficulty. The patient tolerated the procedure well. The qualityof the bowel preparation was good. Findings: The perianal and digital rectal examinations were normal. There was evidence of a prior [id number]-[id number] ileo-colonic anastomosis in the ascending colon.This was patent and was characterized by healthyappearing mucosa. Scattered small-mouthed diverticula were found inthe sigmoid colon. Internal hemorrhoids were found duringretroflexion. The hemorrhoids were Grade I (internal hemorrhoids that do not prolapse). The exam was otherwise without abnormality. Procedure Code(s): --- Professional --- G0105, Colorectal cancer screening; colonoscopy on individual at high risk Diagnosis Code(s): --- Professional --- Z85.038, Personal history of other malignantneoplasm of large intestine CPT copyright 2020 [employer]. All rights reserved. The codes documented in this report are preliminary and upon purchasing department clerk reviewmay be revised to meet current compliance requirements. Valente Camarena MD 12/17/2024 10:46:21 AM This report has been signed electronically.Valente Camarena MD Number of Addenda: 0 Note Initiated On: 12/17/2024 10:28 AM Scope Withdrawal Time: 0 hours 6 minutes 55 seconds Scope In: 10:35:31 AM Scope Out: 10:45:39 AM Endoscopy Department at [facility] - [address] [place] [id number] IMPRESSION: - Patent [id number] ileo-colonic anastomosis, characterized by healthy appearing mucosa. - Diverticulosis in the sigmoid colon. - Internal hemorrhoids. - The examination was otherwise normal. - No specimens collected. Recommendation: - Discharge patient to home. - Repeat colonoscopy in 5 years for surveillance. Valente Camarena MD GI~PROCEDURE ORDERABLES Fin al Result * PET CT Skull to Mid Thigh Initial (12/11/2024 4:55 PM EDT) Anatomical Region Laterality Modality Body Radiographic Kaelyn ging 12/15/2024 5:11 AM EDT Impressions 12/15/2024 6:25 AM EDT FDG avid pancreatic tail mass without abnormal uptake to suggest metastatic disease. Please note: The CT was acquired at a low radiation dose settings. ??The images are of nondiagnostic quality and used solely for purposes of attenuation correction and slice localization for the PET scan. ??If a diagnostic CT study is desired it must be ordered separately. -------- FINAL REPORT -------- Dictated By: Lili Pena Dictated Date: 12/15/2024 05:11 ET Assigned Physician: Lili Pena Reviewed and Electronically Signed By: Lili Pena Signed Date: 12/15/2024 06:25 ET Workstation ID: [id number] Transcribed By: Self Edit Transcribed Date: 12/15/2024 05:27 ET Narrative 12/15/2024 6:25 AM EDT INDICATION: Pancreatic mass initial staging, please do RED. ??History of lung resection for cancer times 2 as well as colon cancer status post right hemicolectomy as well as abdominal wall hernia repair. ??Pancreatic tail mass. TECHNIQUE: FDG PET-CT imaging was performed from the skull bases through the thighs in a single acquisition with data set reconstructed in axial, coronal, and sagittal planes at the computer workstation with fused data from both the PET imaging study and attenuation correction CT. The CT portion of the examination was done strictly for attenuation correction and is not a true diagnostic CT examination. ??Enteric contrast was administered. DLP: ??595 mGy-cm Radiopharmaceutical: 11.7 mCi of F-18 FDG IV. Blood glucose: 138 mg/dl. COMPARISON: Correlation is made with prior CT of the chest abdomen pelvis dated 11/2024 FINDINGS: HEAD AND NECK: No abnormal FDG activity. THORAX: No abnormal FDG avid thoracic or axillary lymphadenopathy. Postsurgical appearance in the lungs. ??No suspicious FDG avid pulmonary nodule. ??Bibasilar and right middle lobe atelectasis/scarring. Moderate hiatal hernia SUV max 3.1. ABDOMEN/PELVIS: FDG avid pancreatic tail mass SUV max 4.2. Postsurgical appearance status post right hemicolectomy. ??Diverticulosis. ??Nonspecific activity within the anal canal SUV max 4.1. ??Postsurgical appearance along the anterior abdominal wall SUV max 2.8. No FDG avid abdominal or pelvic lymphadenopathy. ??For example, nonenlarged portacaval lymph node measuring approximately 7 mm SUV max 2.2. MUSCULOSKELETAL: Degenerative changes. ??For example, degenerative changes including anterior marginal osteophyte formation at L5-S1 SUV Max 3.2. Procedure Note Lili Pena MD - 12/15/2024 INDICATION: Pancreatic mass initial staging, please do RED. History oflung resection for cancer times 2 as well as colon cancer status postright hemicolectomy as well as abdominal wall hernia repair. Pancreatictail mass. TECHNIQUE: FDG PET-CT imaging was performed from the skull bases throughthe thighs in a single acquisition with data set reconstructed in axial,coronal, and sagittal planes at the computer workstation with fused datafrom both the PET imaging study and attenuation correction CT. The CTportion of the examination was done strictly for attenuation correctionand is not a true diagnostic CT examination. Enteric contrast wasadministered. DLP: 595 mGy-cm Radiopharmaceutical: 11.7 mCi of F-18 FDG IV. Blood glucose: 138 mg/dl. COMPARISON: Correlation is made with prior CT of the chest abdomen pelvisdated 11/2024 FINDINGS: HEAD AND NECK: No abnormal FDG activity. THORAX: No abnormal FDG avid thoracic or axillary lymphadenopathy. Postsurgical appearance in the lungs. No suspicious FDG avid pulmonarynodule. Bibasilar and right middle lobe atelectasis/scarring. Moderate hiatal hernia SUV max 3.1. ABDOMEN/PELVIS: FDG avid pancreatic tail mass SUV max 4.2. Postsurgical appearance status post right hemicolectomy. Diverticulosis.Nonspecific activity within the anal canal SUV max 4.1. Postsurgicalappearance along the anterior abdominal wall SUV max 2.8. No FDG avid abdominal or pelvic lymphadenopathy. For example, nonenlargedportacaval lymph node measuring approximately 7 mm SUV max 2.2. MUSCULOSKELETAL: Degenerative changes. For example, degenerative changesincluding anterior marginal osteophyte formation at L5-S1 SUV Max 3.2. IMPRESSION: FDG avid pancreatic tail mass without abnormal uptake to suggestmetastatic disease. Please note: The CT was acquired at a low radiation dose settings. The images are ofnondiagnostic quality and used solely for purposes of attenuationcorrection and slice localization for the PET scan. If a diagnostic CTstudy is desired it must be ordered separately. -------- FINAL REPORT -------- Dictated By: Lili Pena Dictated Date: 12/15/2024 05:11 ET Assigned Physician: Lili Pena Reviewed and Electronically Signed By: Lili Pena Signed Date: 12/15/2024 06:25 ET Workstation ID: [id number] Transcribed By: Self Edit Transcribed Date: 12/15/2024 05:27 ET Subramony Subramonia-Cory [facility] NM PROCEDURES F inal Result * CT Chest/Abdomen/Pelvis w Contrast (11/27/2024 3:17 [...] -------- FINAL REPORT -------- Dictated By: DREW GUTIERREZ Dictated Date: 11/30/2024 09:26 ET Assigned Physician: DREW GUTIERREZ Reviewed and Electronically Signed By: DREW GUTIERREZ Signed Date: 11/30/2024 09:34 ET Workstation ID: [id number] Transcribed By: Self Edit Transcribed Date: 11/30/2024 [...] bones. ??Levoconvex thoracolumbar curvature. Procedure Note Drew Gutierrez MD - 11/30/2024 PROCEDURE: Chest, abdomen, and [...] the bones. Chronic fracture deformity at the [id number] body with less than 25% height loss. [...] -------- FINAL REPORT -------- Dictated By: DREW GUTIERREZ Dictated Date: 11/30/2024 09:26 ET Assigned Physician: DREW GUTIERREZ Reviewed and Electronically Signed By: DREW GUTIERREZ Signed Date: 11/30/2024 09:34 ET Workstation ID: [id number] Transcribed By: Self Edit Transcribed Date: 11/30/2024 09:26 ET Subramony Isidro ROMERO CT PROCEDURES F inal Result from Last 3 Months Insurance [employer] MEDICARE Advance Directives * Full Code - Default (Latest Code Status on File) Date Activated Date Inactivated Comments 01/19/2025 9:29 AM 01/19/2025 4:38 PM This is order is used when code status has not been discussed with the patient, or code status is otherwise unknown/unconfirmed To update the patient's code status, place a code status order. Do not modify or discontinue any currently active code status orders. * Full Code - Default Date Activated Date Inactivated Comments 01/07/2025 3:44 PM 01/11/2025 3:46 PM This is orde r is used when code status has not been discussed with the patient, or code status is otherwise unknown/unconfirmed To update the patient's code status, place a code status order. Do not modify or discontinue any currently active code status orders. * Full Code - Default Date Activated Date Inactivated Comments 01/07/2025 10:07 AM 01/07/2025 3:44 PM This is ord er is used when code status has not been discussed with the patient, or code status is otherwise unknown/unconfirmed To update the patient's code status, place a code status order. Do not modify or discontinue any currently active code status orders. Care Teams Service Car Driver Relationship Specialty Start Date End Date Jung Carranza MD [facility] [address] [place], [place] PCP - General Internal Medicine 12/08/18
== END 2025-01-26 12:45 | disposition home or self-care (01) ==
LOC: HO.ENCR 11:32
PROVIDERS: PCP Internal Medicine; Visit Provider Physician Assistant Medical
DX: E11.21 Type 2 diabetes mellitus with diabetic nephropathy (principal); N28.9 Disorder of kidney and ureter, unspecified

== ENCOUNTER 2025-01-26 11:31 | Outpatient (REF) | payer MEDICARE, SELFPAY ==
--- OUTSIDE RECORDS SUMMARY | 2025-01-26 13:59 | XMS_ITS | Clinical Summary ---
Author Organization [facility] Address [address] [place] [address] Care Team Providers Care Ward Clerk Name Role Phone Jung Carranza MD Primary Care Provider [phone]- [phone] Allergies Active Allergy Reactions Criticality Noted Date [...] age to complete this topic Care Teams Ward Clerk Relationship Specialty Start Date End Date Jung Carranza MD [address] [place] [id number] PCP - General Internal Medicine 02/12/24
[2025-01-26 14:37] LABS: Cholesterol 136 mg/dL (<200); Estimated Glomerular Filt Rate 46; HDL Cholesterol 47 mg/dL (>40); LDL Cholesterol Calculated 58 mg/dL (<100); Triglycerides 159 mg/dL (<150)
[2025-01-26 14:52] LABS: TSH reflex Free T4 2.51 uIU/mL (0.32-4.0)
[2025-01-27 05:44] LABS: C Peptide 5.09 ng/mL (0.80-3.85)
== END 2025-01-26 11:32 | disposition home or self-care (01) ==
LOC: HO.LAB 11:31
PROVIDERS: PCP Internal Medicine; Visit Provider Physician Assistant Medical
DX: E11.21 Type 2 diabetes mellitus with diabetic nephropathy (principal); E78.5 Hyperlipidemia, unspecified
CPT/HCPCS: 36415; 80061; 82565; 84443; 84681

== ENCOUNTER 2025-02-09 13:55 | Outpatient (AMB) | payer OTHER, SELFPAY ==
[2025-02-09 14:00] VITALS: BP 102/62; PULSE 70; O2SAT 97; BMI 24.6
--- NOTE | 2025-02-09 14:00 | MHC.OFFVIS ---
Vital Signs 02/09/25 14:00 Height 5 ft 4 in Weight 143 lb 4.807 oz BMI 24.6 BP 102/62 Blood Pressure Location Lt brachial Position Sitting Pulse 70 Pulse Source Pulse Oximeter Pulse Oximetry (%) 97 Oxygen Delivery Method Room Air Intake Visit Reasons: copd Mash Tub Cooker Operator Required: No Accompanied by: Self / Same As Patient Allergies latex Allergy (Severe, Verified 01/26/25 11:35) Swelling levofloxacin [Levaquin] Allergy (Severe, Verified 01/26/25 11:35) Swelling Aspirin Allergy (Severe, Uncoded 01/26/25 11:35) Swelling HPI Comments Details: The patient is a 74-year-old woman known history of lung cancers status post resections in addition to COPD. Overall she is doing very well. She is staying active she denies any significant dyspnea on exertion she has been using the inhalers as prescribed. Her last CT scan of the chest to assess her pulmonary nodules was back in March 2019 to follow-up a new pulmonary nodule. The appeared to be stable. The patient has had waxing waning pulmonary nodules. At this point the patient should have another CT scan of the chest in March 2020. Otherwise patient is without any other complaints at this time. 03/25/2020 the patient is here for pulmonary follow-up visit. Overall she is doing well from a respiratory status. She does have some shortness of breath with activity, mild in severity. Does have cough intermittently. She does take respiratory medications without any significant issue. We did review her CT scan of the chest from 2019, 2018 and also 2018. She has had multiple pulmonary nodules and she has had a history of cancer. Most recent CT scan of the chest demonstrates she is a slight change in the consistency of the right upper lobe nodular density. It appears to be little more solid and slightly more elongated. Again this may be just away was caught or the resolution. Therefore, at this point we will repeat the CT scan in 6 months. 09/29/2020 the patient is here for pulmonary follow-up visit. Overall she does complaint of dyspnea on exertion. Moderate severity. Does not appear to be getting any better. She has gained some weight which may be contributing. We did look at her most recent CT scan of the chest that she had a [facility]. I personally reviewed the CT scan with the patient.. I do not see any concerning nodular densities. At this point we can go back to the once a year CT scans. December 02, 2020 the patient is here for pulmonary follow-up visit. Since we last spoke she was diagnosed with colon cancer and screening colonoscopy. She was relatively asymptomatic. She now went to [place] and now it will be undergoing surgery after they do a full evaluation. From a respiratory status she is doing okay. Does have some dyspnea on exertion [id number] severity. Does get better with rest. Her last CT scan of the chest was reassuring with stable pulmonary nodules without any evidence of any metastatic disease that we can see at this point to the lungs. The patient is medically optimized from a respiratory status and is doing well from a pulmonary standpoint and will be able to consent for surgery for both anesthesia and the surgical intervention that she needs to have in [place]. The patient understands the risks which include atelectasis, hypoxia, prolonged mechanical ventilation and pneumonia. The risks at this point her minimal for her and she is able to have surgery from a pulmonary standpoint. 06/06/2021 the patient is here for a pulmonary follow-up visit. Since we last spoke the patient did undergo surgery for an early stage colon cancer. She was able to get it fully resected. she did not require chemotherapy which is reassuring. She did have a repeat CT scan of the chest at [facility]. no obvious concerns noted. However, need to compared to the CT scan from [facility] to be sure completely. For the last few weeks she has noticed increasing shortness of breath with exertion moderate severity. She actually felt well after surgery. She has been using her Symbicort but typically just once a day. She needs to maximize at this time to twice a day and I did recommend she start Spiriva in conjunction to optimize his respiratory medication therapy. 12/05/2021 the patient is here for pulmonary follow-up visit. Overall the patient has been well from a respiratory status. She was concerned because her [facility] laboratory came back elevated. Therefore she underwent a PET/ CT scan at [facility]. They could not find any evidence of any cancer. she is now due for colonoscopy. From a pulmonary standpoint her CT scans have been stable. She is following closely with serial CT scans. She is complaining of chest congestion mucus buildup and raspiness of the voice. She does comment also that she has developed increased reflux symptoms. I do believe her reflux symptoms are aggravating her larynx and resulting in the raspiness and mucus buildup. 06/05/2022 the patient is here for a pulmonary follow-up visit. Overall she is doing well. She continues use her respiratory therapy. She does not see any significant improvement when she does use the inhalers I did advise again try to cut down a little bit in the he continues to do about the same. She does have dyspnea on exertion. She also complains of reflux disease. She does take omeprazole in the morning and also Pepcid at nighttime. He seems to be helping. She does have episodes where she loses the ability to breathe brief few seconds. This sound like laryngospasm. Explained to her that the triggers could be the cause including underlying laryngeal penetration for reflux and/or postnasal drip resulting living will spasms. She should be sleeping elevated and wanting the reflux diet. The patient will follow up in [place] for the abnormal CT will. I believe she has been undergo a CT scan of the chest available. However she will be following up with them at the end of the year. She will not sure that I get a copy of the CT scan of the chest will for week follow-up with pulmonary nodules. Once the patient is without any other complaints. 12/06/2022 the patient is here for a pulmonary follow-up visit. Overall she is doing well until several weeks ago when she started developing a worsening productive cough. Moderate in severity. Initially was productive with yellow sputum, but now is non productive. Denies fever or chills. She continues use her respiratory therapy. She does not see any significant improvement when she does use the inhalers. On exam, she does have some wheezing. I will prescribe a course of prednisone. 03/07/2023 the patient is here for a pulmonary follow-up visit. She complains of worsening shortness of breath with minimal activity. She has been struggling with her breathing. Moderate severity. She took a few days of the prednisone during the last visit because of the exacerbation but she stop the because her sugars were elevated. She continues on a respiratory medicine. Is only partially helpful. On exam she actually has relatively normal breath sounds. No significant rhonchi or wheezing noted. I do believe the patient has gained weight and she is more deconditioning. We did talk about getting pulmonary function studies and starting pulmonary rehabilitation. The patient will go ahead and proceed with this process. As far as the other alternative medications we can consider Daliresp as a good option to minimize the steroid use specially since she cannot take the prednisone because of the elevated blood sugars. Her last CT scan of the chest was back in August. Otherwise patient is doing well. Likely will need follow-up imaging studies the end of this year or next year. We will discuss that further during the next follow-up in the fall. 05/06/2023 the patient is here for a pulmonary follow-up visit. Overall the patient is doing well. She ended up having her pulmonary rehabilitation at the [facility] through a cancer survivorship program. This appears to be working much better. She has been feeling better less shortness of breath. She continues her respiratory therapy. We did review her pulmonary function studies demonstrating only a mild obstructive process. She does have moderate diffusion impairment but she has had multiple surgeries. Overall very reassuring PFTs. She is that a follow-up in [place] the next few months. She should have a CT scan of chest August 2024 in [place]. Otherwise she will continue with current respiratory therapy and will follow-up in 6 months time. If any issues arise the patient will call for further evaluation. 12/23/2023 the patient is here for a pulmonary follow-up visit. Overall the patient has been doing well from a respiratory status. She has been following closely with [facility]. She has had a history of lung cancer x2 and more recently colon cancer. She has been getting CT scans of the abdomen and chest every 6 months in [place]. The patient is concerned because now she is going to change insurance companies and uncovered enough are any more. She is going to need a local oncologist to continue monitoring closely her cancer history. She has been cancer free now for about 3 years. I will refer her to a local hemo tolerating oncology's specialist. In the meantime the patient continues use respiratory therapy with good effect. Although, the appeared to be very expensive specially the Spiri va. Will go ahead and switch her over to Breztri to simplify her regimen. No need for prednisone. She does not use a rescue inhaler often. 06/25/2024 the patient is here for a pulmonary follow-up visit. The patient overall has been doing okay. She does complaint of dyspnea on exertion. [id number] severity. Seems like her symptoms got worse when she started developing the abdominal discomfort. She went to the ER found to have a ventral hernia. She also has a hiatal hernia that causes her to have some GI symptoms including dyspepsia and epigastric discomfort. Still though she was evaluated by General surgery and felt that she needed surgery for the significant ventral hernia. She did have spirometry in the office because of the shortness of breath and she appears to have a mild obstruction consistent with mild COPD. In addition to that she has a significant amount of small airways disease. Therefore will go ahead and optimize her respiratory therapy by having her take the Symbicort twice a day 2 puffs and also start Spiriva. Hopefully by providing her maximum bronchodilation effect she is going to feel better. From a pulmonary standpoint the patient may be able to proceed with surgery. She does have moderate risk for perioperative pulmonary complications which includes bronchospasms, hypoxia, atelectasis, pneumonia. At this point she is medically optimized from pulmonary standpoint may be able to proceed with anesthesia and surgery. The patient will follow-up in 3 months will reassess. 02/09/2025 the patient is here for pulmonary follow-up visit. Overall, complains of abdominal pains, moderate to severe.. She did have her abdominal surgery for hernia repair and she still has swelling. She did not have any respiratory issues. She continues use her respiratory medications as prescribed. No recent exacerbations which is reassuring she did finally see Oncology. She is going to follow-up with them soon. She should be up for a CT scan of the chest. Await for her to be seen by Oncology to see what they want to do. Otherwise will request for sometime in the spring. The patient did have a bad fall which she hurt her coccyx bone. She has a hard time seeing him. Otherwise patient is without any other complaints. Will go ahead and follow-up with her in 4-6 months. I which time if the patient has not had a CT scan will make sure to have 1 done. the patient did follow-up with Oncology. The plan is for her to feel better in to have decreased pain and swelling in order to start chemotherapy. She did have imaging studies at [facility]. Will go ahead and request a release of medical records to get her most recent imaging studies. [facility] Medical History (Updated 11/10/24 @ 15:47 by RALPH gN) CHF (congestive heart failure) Renal insufficiency Peripheral sensory neuropathy due to type 2 diabetes mellitus Type II diabetes mellitus History of transfusion of packed red blood cells Migraine History of placement of stent in LAD coronary artery Osteoporosis Hyperlipidemia Depression CAD (coronary artery disease) Sleep apnea On anticoagulant therapy TIA (transient ischemic attack) Myocardial infarction Obesity Diabetes Dyslipidemia History of colon cancer HTN (hypertension) Carotid stenosis, asymptomatic GERD (gastroesophageal reflux disease) Colon cancer Pre-op chest exam Lung cancer Pulmonary nodules Dyspnea COPD (chronic obstructive pulmonary disease) Pulmonary nodule Surgical History History of surgery History of incisional hernia repair (07/06/24) Hx of tonsillectomy Hx of tubal ligation History of dental surgery Hx of cardiac catheterization History of lobectomy of lung Family History Mother Stroke Diabetes Father Alcoholic cirrhosis of liver Social History Household Members: None Housing: House Are you a primary resident care aide to a significant other at home: No Do you presently have visiting nurse or other home services: No Patient Tobacco Use Status: Former Tobacco user Tobacco use type: Cigarette Years Smoked: 20+ Years Second Hand Smoke Exposure: No service: No Review of Systems Const Reports body aches, Denies chills, Reports daytime sleepiness, Reports difficulty sleeping, Denies fatigue, Denies fever(s), Denies weight gain and Denies weight loss ENT Denies dizziness Card Denies chest pain, Denies leg edema, Denies lightheadedness, Denies palpitations, Denies dyspnea on exertion, Denies orthopnea and Denies other Resp Denies cough and Denies dyspnea on exertion GI Reports abdominal pain, Denies hematochezia and Denies change in stool character Musc Denies abnormal gait, Denies muscle weakness, Denies numbness, Denies radiating pain into limb and Denies tingling Neuro Denies abnormal gait, Denies dizziness, Denies numbness and Denies tingling Endo Denies fatigue and Denies palpitations Physical Exam Vital Signs: Last Vital Signs Pulse 70 02/09/25 14:00 BP 102/62 02/09/25 14:00 Pulse Ox 97 02/09/25 14:00 Oxygen Delivery Method Room Air 02/09/25 14:00 BMI result Body Mass Index 24.6 Const General: alert HEENT General nose exam: Abnormal external nose present and Nasal discharge present Eyes Pupils: Equal, round and reactive pupils present Neck Neck: Yes normal visual inspection, Yes full ROM and Yes no lymphadenopathy Chest Chest palpation & inspection: normal inspection of the chest Resp Effort & Inspection: normal respiratory effort Auscultation: no wheezes and diminished lung sounds Cardio Rate: regular rate Rhythm: regular rhythm Heart sounds: S1 normal heart sound present and S2 normal heart sound present GI Palpation (GI): Soft to palpation and nontender Auscultation: normal bowel sounds General: Yes no CVA tenderness Back/Spine/Pelvis Back: no CVA tenderness Skin General skin exam: rashes and/or lesions noted Neuro Cranial nerves: Yes Equal, round and reactive pupils present Assessment & Plan Assessment & Plan (1) COPD (chronic obstructive pulmonary disease): Code(s): J44.9 - Chronic obstructive pulmonary disease, unspecified Category: Medical Qualifiers: COPD type: COPD with acute exacerbation Qualified Code(s): J44.1 - Chronic obstructive pulmonary disease with (acute) exacerbation (2) Pulmonary nodules: Code(s): R91.8 - Other nonspecific abnormal finding of lung field Category: Medical (3) Dyspnea: Comment: Likely multifactorial. Does have ongoing COPD in addition to multiple lung resections. Code(s): R06.00 - Dyspnea, unspecified Category: Medical Qualifiers: Dyspnea type: dyspnea on exertion Qualified Code(s): R06.00 - Dyspnea, unspecified (4) Pulmonary nodule: Code(s): R91.1 - Solitary pulmonary nodule Category: Medical (5) GERD (gastroesophageal reflux disease): Code(s): K21.9 - Gastro-esophageal reflux disease without esophagitis Category: Medical Qualifiers: Esophagitis presence: without esophagitis Qualified Code(s): K21.9 - Gastro-esophageal reflux disease without esophagitis Plan Continue Symbicort 2 puff BID continue Spiriva 2 inhations daily reflux diet Continue PPI cont Pepcid at night start Zolpidem for sleep F/U with oncology F/U 6 months Medications: New zolpidem (Ambien) 10 mg PO BEDTIME 30 tabs 3RF 30 days Coding Level of Care Code Est Pt Level 4 (76519) Complex EM visit Add On G2211 Diagnoses Chronic obstructive pulmonary disease with acute exacerbation J44.1 COPD type: COPD with acute exacerbation Pulmonary nodules R91.8 Dyspnea on exertion R06.00 Dyspnea type: dyspnea on exertion Pulmonary nodule R91.1 Gastroesophageal reflux disease without esophagitis K21.9 Esophagitis presence: without esophagitis
--- OUTSIDE RECORDS SUMMARY | 2025-02-09 14:10 | XMS_ITS | Clinical Summary ---
Author Organization [facility] Address [address] [place] [address] Care Team Providers Care Piece Dyer Name Role Phone Jung Carranza MD Primary Care Provider [phone] Allergies Active Allergy Reactions Criticality Noted Date [...] age to complete this topic Care Teams Piece Dyer Relationship Specialty Start Date End Date Jung Carranza MD [address] [place] [id number] PCP - General Internal Medicine 02/12/24
== END 2025-02-09 14:58 | disposition home or self-care (01) ==
LOC: HO.HPS 13:55
PROVIDERS: PCP Internal Medicine; Visit Provider Hospitalist
DX: J44.1 Chronic obstructive pulmonary disease with (acute) exacerbation (principal); R91.8 Other nonspecific abnormal finding of lung field; R06.00 Dyspnea, unspecified; R91.1 Solitary pulmonary nodule; K21.9 Gastro-esophageal reflux disease without esophagitis
CPT/HCPCS: 99214

== ENCOUNTER → 2025-02-09 13:55 | Outpatient (BNVA) | payer OTHER, SELFPAY | PROVIDERS: PCP Internal Medicine; Visit Provider Hospitalist ==

== ENCOUNTER 2025-02-16 10:30 | Outpatient (AMB) | payer OTHER, SELFPAY ==
--- NOTE | 2025-02-16 10:31 | MHC.OFFVIS ---
Vital Signs 02/16/25 10:38 Height 5 ft 4 in Weight 143 lb 8.335 oz BMI 24.6 BP 90/58 L Blood Pressure Location Lt brachial Position Sitting Pulse 82 Pulse Source Pulse Oximeter Pulse Oximetry (%) 97 Oxygen Delivery Method Room Air Intake Visit Reasons: Type II Diabetes Intake Note: Patient present today to follow up on Type 2 Diabetes Mellitus. Last Diabetic Eye exam: Within the year Last Podiatry Visit: Does not see a Analysis Internship Random Glucose: 299 mg/dl HgA1C: 9.1% 02/16/2025 Coin Machine Supervisor Required: No Accompanied by: Daughter Allergies latex Allergy (Severe, Verified 02/16/25 10:38) Swelling levofloxacin [Levaquin] Allergy (Severe, Verified 02/16/25 10:38) Swelling Aspirin Allergy (Severe, Uncoded 02/16/25 10:38) Swelling HPI Comments Details: This is a 74-year-old female with a past medical history of type 2 diabetes, CHF, CAD, hiatal hernia with GERD, lung cancer, stage II adenocarcinoma of the colon, carotid artery stenosis, COPD, pulmonary nodules and recently diagnosed pancreatic cancer s/p tumor resection and splenectomy in December presenting for diabetic management. She was diagnosed with diabetes 4 years ago. Her mother had type 2 diabetes. Surgeon -Dr. Medrano Oncologist- Dr. Ray. Patient says she had pancreatic mass resected and spleen removed on 01/07/2025 at [facility]. She was kept in the hospital for 5 days which they say was mostly due to difficulties controlling pain. Patient said she will be starting chemo in the near future. Hemoglobin A1c 9.1% today up from 8.8% 11/10/2024. Reviewed glucometer download Target range 80% Average glucose 159 Highest to 23 Lowest 103 Readings per day 2.9 She is not checking blood sugars after eating. This morning she had an Lithuanian muffin and peanut butter, and her blood sugar is 299. She also called the office because after having ramen noodle soup it was 262. Current medication regimen:Jardiance 25 mg Tresiba 6 units at bedtime. Lispro sliding scale: <150 0 units 150-200 2 unit 201-250 4 units 251-300 6 units 301-350 8 units 351-400 10 units >400 12 units and call the office Lispro was started during the surgical admission. Past medications: Mounjaro was discontinued due to risk of pancreatitis. Rybelsus was discontinued due to abdominal pain in the past. She never tried metformin because she was concerned about potential side effects due to chronic diarrhea. She has an appointment with the DE after this to discuss CGM. The 1st time she tried using it it alerted her low sugars frequently overnight, and she was diagnosed with cancer and had a lot of other things going on at the time. Hypoglycemia symptoms: none Hyperglycemia symptoms: Weight loss and polydipsia Eye exam: [facility], no complications per patient last exam Microvascular complications: neuropathy, nephropathy (renal insufficiency) Macrovascular complications: CAD and PAD (Dr. Freitas) ROS: Constitutional: She gained 2 lb since her last visit, previous weight loss. no fevers or chills. Respiratory: No shortness of breath Cardiovascular: No chest pain Neurologic: No headache, dizziness, syncope Endocrine: see HPI Physical exam: Constitutional: Alert, in no distress. Neck: Supple, Full range of motion. No lymphadenopathy. No palpable thyroid masses. Respiratory: Clear to auscultation. Cardiovascular: S1 S2 regular. No murmurs. Psychiatric: Anxious [facility] Medical History (Updated 11/10/24 @ 15:47 by RALPH Ng) CHF (congestive heart failure) Renal insufficiency Peripheral sensory neuropathy due to type 2 diabetes mellitus Type II diabetes mellitus History of transfusion of packed red blood cells Migraine History of placement of stent in LAD coronary artery Osteoporosis Hyperlipidemia Depression CAD (coronary artery disease) Sleep apnea On anticoagulant therapy TIA (transient ischemic attack) Myocardial infarction Obesity Diabetes Dyslipidemia History of colon cancer HTN (hypertension) Carotid stenosis, asymptomatic GERD (gastroesophageal reflux disease) Colon cancer Pre-op chest exam Lung cancer Pulmonary nodules Dyspnea COPD (chronic obstructive pulmonary disease) Pulmonary nodule Surgical History History of surgery History of incisional hernia repair (07/06/24) Hx of tonsillectomy Hx of tubal ligation History of dental surgery Hx of cardiac catheterization History of lobectomy of lung Family History Mother Stroke Diabetes Father Alcoholic cirrhosis of liver Social History Household Members: None Housing: House Are you a primary rn complex care to a significant other at home: No Do you presently have visiting nurse or other home services: No Patient Tobacco Use Status: Former Tobacco user Tobacco use type: Cigarette Years Smoked: 20+ Years Second Hand Smoke Exposure: No service: No Physical Exam Vital Signs: Last Vital Signs Pulse 82 02/16/25 10:38 BP 90/58 L 02/16/25 10:38 Pulse Ox 97 02/16/25 10:38 Oxygen Delivery Method Room Air 02/16/25 10:38 BMI result Body Mass Index 24.6 Results AMB Hemoglobin A1c AMB Hemoglobin A1c 9.1 % Last Edit by SHIRA Robins on 02/16/25 11:02 Results Reviewed Results Reviewed: Laboratory Last Values Glucose (Clinic) 299 mg/dL (60-115) H 02/16/25 10:44 Hgb A1c (Clinic) 9.1 % (4.0-6.0) H 02/16/25 10:48 Laboratory Tests 05/06/24 05/13/24 23:31 11:56 Plt Count 241 Creatinine 1.13 1.10 Estimated GFR 47 49 AST 17 ALT 21 Laboratory Tests 01/26/25 02/16/25 13:14 10:48 Creatinine 1.16 Estimated GFR 46 Hgb A1c (Clinic) 9.1 H C-Peptide 5.09 H Triglycerides 159 H Cholesterol 136 LDL Cholesterol, Calc 58 HDL Cholesterol 47 TSH 2.51 Assessment & Plan Assessment & Plan (1) Type II diabetes mellitus: Code(s): E11.9 - Type 2 diabetes mellitus without complications Category: Medical Qualifiers: Diabetes mellitus complication detail: with nephropathy Diabetes mellitus complication status: with kidney complications Diabetes mellitus custodial insulin use: without electrician supervisor airplane use Qualified Code(s): E11.21 - Type 2 diabetes mellitus with diabetic nephropathy (2) Renal insufficiency: Code(s): N28.9 - Disorder of kidney and ureter, unspecified Category: Medical Plan In summary this is a 74-year-old female with type 2 diabetes with micro and macrovascular complications recently diagnosed with pancreatic cancer who underwent tumor resection and splenectomy. Remain off GLP 1 due to risk of pancreatitis. Continue Jardiance 25 mg daily. Continue Tresiba 6 units every evening. We will adjust her sliding scale for lispro to combat postprandial hyperglycemia. Advised her that her glucometer readings are good, but we are not capturing the blood sugars after eating right now. She is meeting with the cosmetology educator after this visit to discuss CGM. Follow this scale for lispro and administer 15 minutes before meals: <150 0 units 150-200 4 unit 201-250 6 units 251-300 8 units 301-350 10 units 351-400 12 units >400 14 units and call the office Reasonable goal for hemoglobin A1c is 7.5-8% given medical history. If you experience low blood sugar (70), treat this by eating a chewable fruit candy like skittles or jelly beans (about 8 pieces), 4 ounces (1/2 cup) of fruit juice (not diet), 1 tablespoon of honey or 4 glucose tablets. If your blood sugar is under 55, take double the amount of one of the above. Recheck your blood sugar in 15 minutes. If you have low blood sugars before the next appointment please call the office. Defers referral to the dietitian. Follow up in 2-3 weeks for type 2 diabetes. Orders: Orders AMB Hemoglobin A1c Today E11.21 - Type 2 diabetes mellitus with diabetic nephropathy Patient Instructions: Current medication regimen:Jardiance 25 mg Tresiba 6 units at bedtime. Change lispro scale to the following: <150 0 units 150-200 4 unit 201-250 6 units 251-300 8 units 301-350 10 units 351-400 12 units >400 14 units and call the office Coding Level of Care Code Est Pt Level 4 (55092) Complex EM visit Add On G2211 Diagnoses Type 2 diabetes mellitus with diabetic nephropathy, without long-term current use of insulin E11.21 Diabetes mellitus complication detail: with nephropathy Diabetes mellitus complication status: with kidney complications Diabetes mellitus custodial insulin use: without electrician supervisor airplane use Renal insufficiency N28.9
[2025-02-16 10:38] VITALS: BP 90/58; PULSE 82; O2SAT 97; BMI 24.6
[2025-02-16 10:49] LABS: Glucose, Whole Blood 299 mg/dL (60-115)
--- OUTSIDE RECORDS SUMMARY | 2025-02-16 12:06 | XMS_ITS | Clinical Summary ---
Author Organization [facility] Address [address] [place] [address] Care Team Providers Care Bill Adjuster Name Role Phone Jung Carranza MD Primary Care Provider [phone] Allergies Active Allergy Reactions Criticality Noted Date [...] 2024 02/06/2022, 08/26/2021, 12/30/2020, Additional history exists RSV Adult > 60+ Yrs or (1 - 1-dose 75+ series) 2025 Influenza Vaccine (Season Ended) 2025 06/27/2022, 06/27/2021, 06/16/2021, Additional history exists Pneumococcal Vaccine Completed 07/01/2019, 07/14/20 18 Hepatitis B Vaccines Aged Out No long er eligible based on patient's age to complete this topic RSV Ped < 20 months Aged Out No longe r eligible based on patient's age to complete this topic Care Teams Bill Adjuster Relationship Specialty Start Date End Date Jung Carranza MD [address] [place] [address] PCP - General Internal Medicine 02/12/24
== END 2025-02-16 11:24 | disposition home or self-care (01) ==
LOC: HO.ENCR 10:31
PROVIDERS: PCP Internal Medicine; Visit Provider Physician Assistant Medical
DX: E11.21 Type 2 diabetes mellitus with diabetic nephropathy (principal); N28.9 Disorder of kidney and ureter, unspecified

== ENCOUNTER 2025-02-16 10:30 | Outpatient (AMB) | payer OTHER, SELFPAY ==
--- NOTE | 2025-02-16 10:47 | A.OFFVIS_ITS ---
Intake Intake Visit Reasons: Type II Diabetes Mallet Cutter Required: No Accompanied by: Daughter Allergies latex Allergy (Severe, Verified 02/16/25 10:38) Swelling levofloxacin [Levaquin] Allergy (Severe, Verified 02/16/25 10:38) Swelling Aspirin Allergy (Severe, Uncoded 02/16/25 10:38) Swelling HPI Comprehensive Diabetes Asmnt Most Recent Diabetes Results: Cholesterol 136 mg/dL (<200) 01/26/25 HDL Cholesterol 47 mg/dL (>40) 01/26/25 Triglycerides 159 mg/dL (<150) H 01/26/25 Creatinine 1.16 mg/dL (0.5-1.4) 01/26/25 Blood Urea Nitrogen 19 mg/dL (9-16) H 05/13/24 Sodium 141 mmol/L (135-145) 05/13/24 Potassium 3.9 mmol/L (3.3-5.1) 05/13/24 Chloride 108 mmol/L (96-108) 05/13/24 Carbon Dioxide 23 mmol/L (22-29) 05/13/24 Calcium 10.0 mg/dL (8.4-10.2) 05/13/24 AST 17 U/L (5-31) 05/13/24 ALT 21 U/L (0-31) 05/13/24 Total Protein 7.0 g/dL (6.5-8.0) 05/13/24 Albumin 4.0 g/dL (3.5-5.0) 05/13/24 [facility] Medical History (Updated 11/10/24 @ 15:47 by RALPH Ng) CHF (congestive heart failure) Renal insufficiency Peripheral sensory neuropathy due to type 2 diabetes mellitus Type II diabetes mellitus History of transfusion of packed red blood cells Migraine History of placement of stent in LAD coronary artery Osteoporosis Hyperlipidemia Depression CAD (coronary artery disease) Sleep apnea On anticoagulant therapy TIA (transient ischemic attack) Myocardial infarction Obesity Diabetes Dyslipidemia History of colon cancer HTN (hypertension) Carotid stenosis, asymptomatic GERD (gastroesophageal reflux disease) Colon cancer Pre-op chest exam Lung cancer Pulmonary nodules Dyspnea COPD (chronic obstructive pulmonary disease) Pulmonary nodule Surgical History History of surgery History of incisional hernia repair (07/06/24) Hx of tonsillectomy Hx of tubal ligation History of dental surgery Hx of cardiac catheterization History of lobectomy of lung Family History Mother Stroke Diabetes Father Alcoholic cirrhosis of liver Social History Household Members: None Housing: House Are you a primary care information associate to a significant other at home: No Do you presently have visiting nurse or other home services: No Patient Tobacco Use Status: Former Tobacco user Tobacco use type: Cigarette Years Smoked: 20+ Years Second Hand Smoke Exposure: No service: No Assessment & Plan Assessment & Plan (1) Type II diabetes mellitus: Code(s): E11.9 - Type 2 diabetes mellitus without complications Qualifiers: Diabetes mellitus complication detail: with nephropathy Diabetes mellitus complication status: with kidney complications Diabetes mellitus termite control technician insulin use: without termite control technician use Qualified Code(s): E11.21 - Type 2 diabetes mellitus with diabetic nephropathy Plan: Diabetes self-management education and support participation record Assessment/scale: 1= needs instructed? 2= needs review? 3= comprehend keep point? 4= demonstrates understanding/ competent? NC= Not Covered Topics Learning Objective: Initial visit Initial or post srvc Initial or post srvc Initial or post srvc Initial or post srvc Initial or post srvc Post srvc Comments Pre Edu-assessment/plan Outcome or reassess Outcome or reassess Outcome or reassess Outcome or reassess Outcome or reassess Outcome or reassess Diabetes pathophysiology 1 3 Healthy eating 1 3 Being active 1 3 Taking medication 1 3 Monitoring glucose 1 3 A Acute complication 1 Chronic complicated 1 Lifestyle and healthy coping 1 Diabetes distress in support 1 ?Diabetes pathophysiology: ?Defined diabetes med identify own type of diabetes; list 3 options for treating diabetes Healthy eating: ?Described effect of type, amount and ?timing of food on blood glucose; list 3 methods for planning meal Being active: ?State effect of exercise on blood glucose level Taking medication: ?State effect of diabetes medications on diabetes; name diabetes medications taking, action and side effects Monitoring glucose: ?Identify recommended blood glucose targets and personal target Acute complication: ?List symptoms and treatment of hyper and hypoglycemia, DKA, sick day guidelines and guidelines for severe weather or situations of crisis and diabetes supply manage Chronic complication: ?To find the relationship of blood glucose levels to long- term complications of diabetes in screening and preventative measures Lifestyle and healthy coping: ?Described lifestyle and healthy coping strategies to rule out diabetes self-management Diabetes to stress and support: ?Recognize Diabetes to stress and be able to identified support options Patient's last A1c on 02/16/2025 9.1% Blood glucose monitoring When/how often to test Target blood sugar ranges Patient at visit to set up an insert Dexcom G7 with phone raad Dexcom id: Patient's cell phone number Dexcom password: [email or web address] Instructed patient sensors water proof you can shower, or swim do not submerge sensor in water for over 30 minutes Is sensor falls off cannot put back in you need to replace sensor, customer service number given to patient for sensor replacement Sensor placed on the back of Left arm Patient left visit with sensor in warmup Reviewed how to interpret trend arrows Reminded patient that to check finger sticks if symptoms do not match sensor reading. Discussed lag time between finger stick and sensor data.? Instructed patient she should always keep blood glucometer for backup testing if needed Reviewed delay of CGM from fingersticks Reminded pt that if symptoms do not match sensor still needs to check fingersticks. Introduction to Nutrition Importance of healthy diet in managing DM Diet is personalized to individual preference Review patient?s regular diet/food preferences Who prepares meals/does food shopping/ Dining out?/ Barriers? How diet effects glucose Eating 3 balanced meals a day with small, healthy snacks between meals Review food groups Carbohydrates: What is a carbohydrate/Which food/food groups are considered carbohydrates Effect of carbohydrates on blood glucose Portion sizes Reading food labels Basic carb counting (if applicable per nursing assessment) Plate method Meal planning Recommendations: Follow plate method, consistent carbs and read nutritional labels. Smart Goal Assessment:? Patient will identify foods in current meal plan that contain carbohydrates by next Diabetes Education visit in 2 month Pt met goal 50% New Smart Goal: Patient will continue with this nutrition goal Educational Materials: The patient was provided with the following written educational materials: Planning Healthy Meals Handout Portions of this note were created using voice recognition software, please e xcuse any words or phrases that may have been misinterpreted. Coding Level of Care Code Est Pt Level 1 (24841) Diagnoses Type 2 diabetes mellitus with diabetic nephropathy, without long-term current use of insulin E11.21 Diabetes mellitus complication detail: with nephropathy Diabetes mellitus complication status: with kidney complications Diabetes mellitus termite control technician insulin use: without termite control technician use Results AMB Hemoglobin A1c AMB Hemoglobin A1c 9.1 % Last Edit by SHIRA Robins on 02/16/25 11:02
== END 2025-02-16 11:54 | disposition home or self-care (01) ==
LOC: HO.ENCR 10:31
PROVIDERS: PCP Internal Medicine; Visit Provider Registered Nurse Diabetes Educator
DX: E11.21 Type 2 diabetes mellitus with diabetic nephropathy (principal)

== ENCOUNTER → 2025-02-16 10:30 | Outpatient (BNVA) | payer OTHER, SELFPAY | PROVIDERS: PCP Internal Medicine; Visit Provider Physician Assistant Medical | DX: E11.21 Type 2 diabetes mellitus with diabetic nephropathy (principal); E11.42 Type 2 diabetes mellitus with diabetic polyneuropathy; N28.9 Disorder of kidney and ureter, unspecified; C18.9 Malignant neoplasm of colon, unspecified; Z79.84 Long term (current) use of oral hypoglycemic drugs; Z79.4 Long term (current) use of insulin; Z83.3 Family history of diabetes mellitus; Z85.118 Personal history of other malignant neoplasm of bronchus and lung | CPT/HCPCS: 82947; 83036; 99211 ==

== ENCOUNTER 2025-02-24 12:27 | Outpatient (AMB) | payer OTHER, SELFPAY ==
[2025-02-24 12:37] VITALS: BMI 24.4
--- NOTE | 2025-02-24 12:37 | A.OFFVIS_ITS ---
VS Expanded 02/24/25 12:37 Height 5 ft 4 in Weight 141 lb 15.643 oz BMI 24.4 Intake Visit Reasons: Type 2 diabetes mellitus with diabetic nephropathy Allergies latex Allergy (Severe, Verified 03/02/25 11:37) Swelling levofloxacin (Levaquin) Allergy (Severe, Verified 03/02/25 11:37) Swelling Aspirin Allergy (Severe, Uncoded 03/02/25 11:37) Swelling Nutrition Presentation Details: Pt presents for MNT for T2DM Pt reports having a dx of lung cancer and is pending chemo treatment Pt reports having 3-4 small meals/day , working on reducing food portions to prevent hyperglycemia but notices weight loss B: 1 toast rye or whole grain with peanut butter and coffee with no sugar add ed and full fat creamer or bowl of cereal with milk and fruit L: .yogurt and walnut supper: sandwich or potato/chicken/veg, water snack: cracker with peanut butter [id number]-Bo.Jeor Equation Height: 5 ft 4 in Weight: 142 lb Resting Metabolic Rate: 1129.46 Calculated Activity Level: Moderate Activity Calories Needed to Maintain Weight: 1750.66 Diagnosis Nutrition problem #1: food nutri know defi and inadequate protein energy As related to (etiology) #1: diagnosis As evidenced by (sign/symptom) #1: knowledge deficit of diet [facility] Medical History (Updated 11/10/24 @ 15:47 by RALPH Ng) CHF (congestive heart failure) Renal insufficiency Peripheral sensory neuropathy due to type 2 diabetes mellitus Type II diabetes mellitus History of transfusion of packed red blood cells Migraine History of placement of stent in LAD coronary artery Osteoporosis Hyperlipidemia Depression CAD (coronary artery disease) Sleep apnea On anticoagulant therapy TIA (transient ischemic attack) Myocardial infarction Obesity Diabetes Dyslipidemia History of colon cancer HTN (hypertension) Carotid stenosis, asymptomatic GERD (gastroesophageal reflux disease) Colon cancer Pre-op chest exam Lung cancer Pulmonary nodules Dyspnea COPD (chronic obstructive pulmonary disease) Pulmonary nodule Surgical History History of surgery History of incisional hernia repair (07/06/24) Hx of tonsillectomy Hx of tubal ligation History of dental surgery Hx of cardiac catheterization History of lobectomy of lung Family History Mother Stroke Diabetes Father Alcoholic cirrhosis of liver Social History Household Members: None Housing: House Are you a primary manager primary care to a significant other at home: No Do you presently have visiting nurse or other home services: No Patient Tobacco Use Status: Former Tobacco user Tobacco use type: Cigarette Years Smoked: 20+ Years Second Hand Smoke Exposure: No service: No Assessment & Plan Assessment & Plan (1) Type II diabetes mellitus: Code(s): E11.9 - Type 2 diabetes mellitus without complications Category: Medical Qualifiers: Diabetes mellitus rodent exterminator insulin use: without rodent exterminator use Diabetes mellitus complication status: with kidney complications Diabetes mellitus complication detail: with nephropathy Qualified Code(s): E11.21 - Type 2 diabetes mellitus with diabetic nephropathy Plan: Wt: 65 Kg ( 03/10 ) Est kcal needs as per MSJ: 7432-3939 (40% carb, 30% protein/fat) Est fluid needs as per 25-30 ml/d: 1600 -2000 unless otherwise specified by Est prot per day as per 1 g/kg bw: 65 Recommend fiber intake : 8-10 g per day and gradually increase to 25-28 g per day for women and 35-38 g for men or as tolerated Recommend sodium intake per day : less than 2000 mg Educated patient on: ( R = reviewed V = verbalizes understanding N/R = needs review N/A = not applicable * Food sources of carbohydrate, adequate serving sizes and its role in various h ealth conditions: R V N/R * Differences between complex carbohydrates a simple carbohydrates, role of fiber in diet: R * Lean protein sources of foods: R * Differences between types of fats and role in diet (mono on saturated fat fatty acids, saturated fatty acids, trans fats): R V N/R * Food sources of sodium in salt and healthy modifications for heart health in kidney health: R V R/V * Vitamins and minerals: R V N/R * Healthy plate method concept: R * Physical activity: Benefits a precaution: R V N/R * Hypoglycemia protocol (rule of 15): R V N/R * Dietary prevention of Hyperglycemia: R Patient Instructions: Include whole grain foods following healthy plate method see meals ideas consisting of 45-60 g carb per meal (3 meals/day) including lean protein foods and healthy amount of fat Coding Level of Care Code Nutr Indiv Intake (51566) Diagnoses Type 2 diabetes mellitus with diabetic nephropathy, without long-term current use of insulin E11.21 Diabetes mellitus rodent exterminator insulin use: without prison use Diabetes mellitus complication status: with kidney complications Diabetes mellitus complication detail: with nephropathy Time Spent (min) 30
[2025-03-08 21:44] VITALS: BMI 24.4
== END 2025-02-24 13:18 | disposition home or self-care (01) ==
LOC: HO.ENCR 12:28
PROVIDERS: PCP Internal Medicine; Visit Provider Dietitian, Registered
DX: E11.21 Type 2 diabetes mellitus with diabetic nephropathy (principal)

== ENCOUNTER → 2025-02-24 12:27 | Outpatient (BNVA) | payer OTHER, SELFPAY | PROVIDERS: PCP Internal Medicine; Visit Provider Dietitian, Registered | DX: E11.21 Type 2 diabetes mellitus with diabetic nephropathy (principal); Z71.3 Dietary counseling and surveillance | CPT/HCPCS: 97802 ==

== ENCOUNTER 2025-03-02 11:33 | Outpatient (AMB) | payer OTHER, SELFPAY ==
--- NOTE | 2025-03-02 11:34 | A.OFFVIS_ITS ---
Vital Signs 03/02/25 11:37 Height 5 ft 4 in Weight 142 lb 13.753 oz BMI 24.5 BP 104/54 L Blood Pressure Location Rt brachial Position Sitting Pulse 74 Pulse Source Pulse Oximeter Pulse Oximetry (%) 97 Oxygen Delivery Method Room Air Intake Visit Reasons: T2DM Intake Note: Patient present today to follow up on Type 2 Diabetes Mellitus. Last Diabetic Eye exam: Within the year Last Podiatry Visit: Does not see a Sales Contracts Analyst Random Glucose: 153 mg/dl done on Howard view, refused finger stick HgA1C: 9.1% 02/16/2025 Underground Distribution Engineer Required: No Accompanied by: Self / Same As Patient Allergies latex Allergy (Severe, Verified 03/02/25 11:37) Swelling levofloxacin [Levaquin] Allergy (Severe, Verified 03/02/25 11:37) Swelling Aspirin Allergy (Severe, Uncoded 03/02/25 11:37) Swelling Medication List - Last Reconciled 03/02/25 by RALPH Ng acetaminophen-codeine 300-30 mg 1 tab PO BID PRN 10 days acetone (urine) test (Ketone Urine Test strips) As directed albuterol sulfate 90 mcg/actuation 2 inhalations inhalation Q6H PRN 30 days blood sugar diagnostic (OneTouch Ultra Test strips) As directed tests 3 X/day blood sugar diagnostic (OneTouch Ultra Test strips) USE DIRECTED TO TEST 3 TIMES DAILY blood-glucose meter (FreeStyle Lite Meter kit) as directed to monitor blood glucose blood-glucose meter (OneTouch Ultra2 Meter) As directed checks 3X/day blood-glucose sensor (Dexcom G7 Sensor device) apply new sensor every 10 days as directed blood-glucose,credit administration officer,cont (Dexcom G7 Subassembly Supervisor) As directed to monitor blood continuously qfhmxjuics-jlwrakgg-lhfkymiijs 160-9-4.8 mcg/actuation (Breztri Aerosphere) 2 inhalations inhalation BID 30 days calcium carbonate-vitamin D3 600 mg-5 mcg (200 unit) 1 tab PO DAILY cetirizine (Zyrtec) 10 mg PO BID PRN cholecalciferol (vitamin D3) (Vitamin D3) 50 mcg PO DAILY clopidogrel 75 mg PO QPM ezetimibe 10 mg PO DAILY famotidine (Pepcid) 40 mg PO BEDTIME PRN gabapentin 300 mg PO DAILY PRN glucose (Dex4 Glucose) 16 grams (4 x 4 gram) PO Q15M PRN insulin degludec (Tresiba FlexTouch U-200 insulin) 8 units subcut BEDTIME insulin lispro subcutaneously 3 times a day before meals per sliding scale: <150 0 units 150-200 6 unit 201-250 8 units 251-300 10 units 301-350 12 units 351- 400 14 units >400 16 units and call the office lancets (DealerRaterTouch UltraSoft 2 Lancet) As directed checks 3 X/day loperamide (Imodium A-D) 2 mg PO BID lorazepam 0.5 mg PO BID PRN multivitamin 1 tab PO DAILY nitroglycerin 0.4 mg sublingual DIRECTED PRN nystatin (Nyamyc) 1 appl topical BID pen needle, diabetic As directed 4 times daily rosuvastatin 40 mg PO BEDTIME vortioxetine 10 mg PO BEDTIME zolpidem (Ambien) 10 mg PO BEDTIME 30 days HPI Comments Details: This is a 75-year-old female with a past medical history of type 2 diabetes, CHF, CAD, hiatal hernia with GERD, lung cancer, stage II adenocarcinoma of the colon, carotid artery stenosis, COPD, pulmonary nodules and recently diagnosed pancreatic cancer s/p tumor resection and splenectomy in December presenting for diabetic management. She was diagnosed with diabetes 4 years ago. Her mother had type 2 diabetes. Surgeon -Dr. Medrano Oncologist- Dr. Ray. Patient says she had pancreatic mass resected and spleen removed on 01/07/2025 at [facility]. She was kept in the hospital for 5 days which they say was mostly due to difficulties controlling pain. Patient said she will be starting chemo in the near future. Reviewed Dexcom data Average glucose 194 GMI 8% 17% very high 29% high 54% target range 0% hypoglycemia Patient has postprandial hyperglycemia during the day. Current medication regimen:Jardiance 25 mg Tresiba 8 units at bedtime. Lispro sliding scale: <150 0 units 150-200 4 unit 201-250 6 units 251-300 8 units 301-350 10 units 351-400 12 units >400 14 units and call the office Past medications: Mounjaro was discontinued due to risk of pancreatitis. Rybelsus was discontinued due to abdominal pain in the past. She never tried metformin because she was concerned about potential side effects due to chronic diarrhea. She's getting yeast infections on Jardiance. Hypoglycemia symptoms: none Hyperglycemia symptoms: fatigue Eye exam: [facility], no complications per patient last exam Microvascular complications: neuropathy, nephropathy (renal insufficiency) Macrovascular complications: CAD and PAD (Dr. Freitas) ROS: Constitutional: She gained 2 lb since her last visit, previous weight loss. no fevers or chills. Respiratory: No shortness of breath Cardiovascular: No chest pain Neurologic: No headache, dizziness, syncope Endocrine: see HPI Physical exam: Constitutional: Alert, in no distress. Neck: Supple, Full range of motion. No lymphadenopathy. No palpable thyroid masses. Respiratory: Clear to auscultation. Cardiovascular: S1 S2 regular. No murmurs. Psychiatric: Normal affect [facility] Medical History (Updated 11/10/24 @ 15:47 by RALPH Ng) CHF (congestive heart failure) Renal insufficiency Peripheral sensory neuropathy due to type 2 diabetes mellitus Type II diabetes mellitus History of transfusion of packed red blood cells Migraine History of placement of stent in LAD coronary artery Osteoporosis Hyperlipidemia Depression CAD (coronary artery disease) Sleep apnea On anticoagulant therapy TIA (transient ischemic attack) Myocardial infarction Obesity Diabetes Dyslipidemia History of colon cancer HTN (hypertension) Carotid stenosis, asymptomatic GERD (gastroesophageal reflux disease) Colon cancer Pre-op chest exam Lung cancer Pulmonary nodules Dyspnea COPD (chronic obstructive pulmonary disease) Pulmonary nodule Surgical History History of surgery History of incisional hernia repair (07/06/24) Hx of tonsillectomy Hx of tubal ligation History of dental surgery Hx of cardiac catheterization History of lobectomy of lung Family History Mother Stroke Diabetes Father Alcoholic cirrhosis of liver Social History Household Members: None Housing: House Are you a primary post acute care nurse practitioner to a significant other at home: No Do you presently have visiting nurse or other home services: No Patient Tobacco Use Status: Former Tobacco user Tobacco use type: Cigarette Years Smoked: 20+ Years Second Hand Smoke Exposure: No service: No Physical Exam Vital Signs: Last Vital Signs Pulse 74 03/02/25 11:37 BP 104/54 L 03/02/25 11:37 Pulse Ox 97 03/02/25 11:37 Oxygen Delivery Method Room Air 03/02/25 11:37 BMI result Body Mass Index 24.5 Office Procedures Glucose Monitoring Details Details: see [facility] [address] - Glucose monitoring, continuous-physician I&R Procedure code (CPT) selection complete Assessment & Plan Assessment & Plan (1) Type II diabetes mellitus: Code(s): E11.9 - Type 2 diabetes mellitus without complications Category: Medical Qualifiers: Diabetes mellitus termite helper insulin use: without termite helper use Diabetes mellitus complication status: with kidney complications Diabetes mellitus complication detail: with nephropathy Qualified Code(s): E11.21 - Type 2 diabe alvino mellitus with diabetic nephropathy Plan In summary this is a 74-year-old female with type 2 diabetes with micro and macrovascular complications recently diagnosed with pancreatic cancer who underwent tumor resection and splenectomy. Remain off GLP 1 due to risk of pancreatitis. Stop Jardiance. Continue Tresiba 8 units every evening. Increase Tresiba to 10 units at bedtime if morning blood sugars are over 145. Increase scale for lispro and administer 15 minutes before meals: <150 0 units 150-200 6 unit 201-250 8 units 251-300 10 units 301-350 12 units 351-400 14 units >400 16 units and call the office Reasonable goal for hemoglobin A1c is 7.5-8% given medical history. If you experience low blood sugar (70), treat this by eating a chewable fruit candy like skittles or jelly beans (about 8 pieces), 4 ounces (1/2 cup) of fruit juice (not diet), 1 tablespoon of honey or 4 glucose tablets. If your blood sugar is under 55, take double the amount of one of the above. Recheck your blood sugar in 15 minutes. Reviewed DKA with patient and sent urine ketone strips to pharmacy. Written instructions provided. Follow up in 3 weeks for type 2 diabetes. Orders: Orders AMB Glucose Monitoring Today E11.9 - Type 2 diabetes mellitus without complications Medications: New acetone (urine) test (Ketone Urine Test strips) As directed 100 ea 0RF Patient Instructions: Stop Jardiance Continue Tresiba 8 units every evening. Increase Tresiba to 10 units at bedtime if morning blood sugars are over 145. Lispro sliding scale: <150 0 units 150-200 6 unit 201-250 8 units 251-300 10 units 301-350 12 units 351-400 14 units >400 16 units and call the office Diabetic ketoacidosis (DKA) A serious condition that can lead to diabetic coma (passing out for a long time) or even When your cells don't get the glucose they need for energy, your body begins to burn fat for energy, which produces ketones. Ketones are chemicals that the body creates when it breaks down fat to use for energy. The body does this when it doesn?t have enough insulin to use glucose, the body?s normal source of energy. When ketones build up in the blood, they make it more acidic. They are a warning sign that your diabetes is out of control or that you are getting sick. Symptoms of Diabetic Ketoacidosis (DKA) DKA usually develops slowly. But when vomiting occurs, this life-threatening condition can develop in a few hours. Early symptoms include the following: ? Thirst or a very dry mouth ? Frequent urination ? High blood glucose (blood sugar) levels ? High levels of ketones in the urine Then, other symptoms appear: ? Constantly feeling tired ? Dry or flushed skin ? Nausea, vomiting, or abdominal pain ? (Vomiting can be caused by many illnesses, not just ketoacidosis. If vomiting continues for more than 2 hours, contact your health care provider.) ? Difficulty breathing ? Fruity odor on breath ? A hard time paying attention, or confusion When should you test for ketones? It is advisable to check for ketones under the following conditions when: Your blood glucose is higher than 250mg/dl. Feeling nauseated, throwing up, or have pains in your abdominal region. Have a cold or flu. Have general body fatigue. Feel thirsty or have a very dry mouth. Have flushed skin. Have a fruity breath or a hard time breathing. You feel confused or in fog. Negative, trace or light ketones: hydrate, bring sugars down with insulin You should go to the ER if you have moderate or large ketones. Coding Level of Care Code Est Pt Level 4 (50492) Diagnoses Type 2 diabetes mellitus with diabetic nephropathy, without long-term current use of insulin E11.21 Diabetes mellitus usp insulin use: without usp use Diabetes mellitus complication status: with kidney complications Diabetes mellitus complication detail: with nephropathy CPT Codes Details - CPT: 90387 - Glucose monitoring, continuous-physician I&R ([id number])
[2025-03-02 11:37] VITALS: BP 104/54; PULSE 74; O2SAT 97; BMI 24.5
--- OUTSIDE RECORDS SUMMARY | 2025-03-02 13:08 | XMS_ITS | Clinical Summary ---
Author Organization [facility] Address [address] [place] [address] Care Team Providers Care Sales And Leasing Consultant Name Role Phone Jung Carranza MD Primary Care Provider [phone] Allergies Active Allergy Reactions Criticality Noted Date [...] 2) 1969 Colon Cancer Screening (Colonoscopy) 1995 DTap / Tdap / Td (1 - [...] age to complete this topic Care Teams Sales And Leasing Consultant Relationship Specialty Start Date End Date Jung Carranza MD [address] [facility] [address] [place] [id number] PCP - General Internal Medicine 02/12/24
== END 2025-03-02 12:19 | disposition home or self-care (01) ==
PROVIDERS: PCP Internal Medicine; Visit Provider Physician Assistant Medical
DX: E11.21 Type 2 diabetes mellitus with diabetic nephropathy (principal)

== ENCOUNTER → 2025-03-02 11:33 | Outpatient (BNVA) | payer OTHER, SELFPAY | PROVIDERS: PCP Internal Medicine; Visit Provider Physician Assistant Medical ==

== ENCOUNTER 2025-03-30 13:54 | Outpatient (AMB) | payer OTHER, SELFPAY ==
[2025-03-30 13:57] VITALS: BP 100/52; PULSE 79; O2SAT 96; BMI 24.6
--- NOTE | 2025-03-30 13:57 | A.OFFVIS_ITS ---
Vital Signs 03/30/25 13:57 Height 5 ft 4 in Weight 143 lb 4.807 oz BMI 24.6 BP 100/52 L Blood Pressure Location Rt brachial Position Sitting Pulse 79 Pulse Source Pulse Oximeter Pulse Oximetry (%) 96 Oxygen Delivery Method Room Air Intake Visit Reasons: T2DM Intake Note: Patient present today to follow up on Type 2 Diabetes Mellitus. Last Diabetic Eye exam: Within the year Last Podiatry Visit: Does not see a Bookkeeper Assistant Random Glucose: 217 mg/dL, Today HgA1C: 9.1% 02/16/2025 Rail Switch Operator Required: No Accompanied by: Self / Same As Patient Allergies latex Allergy (Severe, Verified 03/30/25 14:05) Swelling levofloxacin (Levaquin) Allergy (Severe, Verified 03/30/25 14:05) Swelling Aspirin Allergy (Severe, Uncoded 03/30/25 14:05) Swelling Medication List - Last Reconciled 03/30/25 by RALPH Ng acetaminophen-codeine 300-30 mg 1 tab PO BID PRN 10 days acetone (urine) test (Ketone Urine Test strips) As directed albuterol sulfate 90 mcg/actuation 2 inhalations inhalation Q6H PRN 30 days blood sugar diagnostic (OneTouch Ultra Test strips) USE DIRECTED TO TEST 3 TIMES DAILY blood-glucose meter (OneTouch Ultra2 Meter) As directed checks 3X/day blood-glucose sensor ([employer] G7 Sensor device) apply new sensor every 10 days as directed blood-glucose,shaker tender,cont (Dexcom G7 Ball Point Splitter) As directed to monitor blood continuously uxfriwikku-ksuzutpv-fnttkjqshg 160-9-4.8 mcg/actuation (Breztri Aerosphere) 2 inhalations inhalation BID 30 days calcium carbonate-vitamin D3 600 mg-5 mcg (200 unit) 1 tab PO DAILY cetirizine (Zyrtec) 10 mg PO BID PRN cholecalciferol (vitamin D3) (Vitamin D3) 50 mcg PO DAILY clopidogrel 75 mg PO QPM ezetimibe 10 mg PO DAILY famotidine (Pepcid) 40 mg PO BEDTIME PRN gabapentin 300 mg PO DAILY PRN glucose (Dex4 Glucose) 16 grams (4 x 4 gram) PO Q15M PRN insulin degludec (Tresiba FlexTouch U-200 insulin) 12 units (0.06 mL) subcut BEDTIME insulin lispro subcutaneously 3 times a day before meals per sliding scale: <120 0 units 121-150 4 units 151-200 8 unit 201-250 10 units 251-300 12 units 301-350 14 units 351-400 16 units >400 18 units and call the office lancets (PPTVuch Delica Plus Lancet) Use as directed to check blood glucose four daily. loperamide (Imodium A-D) 2 mg PO BID lorazepam 0.5 mg PO BID PRN multivitamin 1 tab PO DAILY nitroglycerin 0.4 mg sublingual DIRECTED PRN nystatin (Nyamyc) 1 appl topical BID pen needle, diabetic As directed 4 times daily rosuvastatin 40 mg PO BEDTIME vortioxetine 10 mg PO BEDTIME zolpidem (Ambien) 10 mg PO BEDTIME 30 days HPI Comments Details: This is a 75-year-old female with a past medical history of type 2 diabetes, CHF, CAD, hiatal hernia with GERD, lung cancer, stage II adenocarcinoma of the colon, carotid artery stenosis, COPD, pulmonary nodules and recently diagnosed pancreatic cancer s/p tumor resection and splenectomy in December presenting for diabetic management. She was diagnosed with diabetes 4 years ago. Her mother had type 2 diabetes. Surgeon -Dr. Medrano Oncologist- Dr. Ray. Patient says she had pancreatic mass resected and spleen removed on 01/07/2025 at [facility]. She was kept in the hospital for 5 days which they say was mostly due to difficulties controlling pain. She starts chemotherapy this Saturday. Hemoglobin A1c 9.1%. Dexcom download for March 17 to March 30 reviewed G [place] 8.5% 25% very high 48% high 27% in range 0% low She has a pattern of postprandial in nocturnal hypoglycemia Current medication regimen: Tresiba 10 units at bedtime. Lispro sliding scale: <150 0 units 150-200 6 unit 201-250 8 units 251-300 10 units 301-350 12 units 351-400 14 units >400 16 units and call the office Past medications: Mounjaro was discontinued due to risk of pancreatitis. Rybelsus was discontinued due to abdominal pain in the past. She never tried metformin because she was concerned about potential side effects due to chronic diarrhea. Jardiance discontinued due to yeast infections. Hypoglycemia symptoms: none Hyperglycemia symptoms: fatigue Eye exam: [facility], no complications per patient last exam Microvascular complications: neuropathy, nephropathy (renal insufficiency) Macrovascular complications: CAD and PAD (Dr. Freitas) ROS: Constitutional: She gained 1 lb since her last visit, previous weight loss. no fevers or chills. Respiratory: No shortness of breath Cardiovascular: No chest pain Neurologic: No headache, dizziness, syncope Endocrine: see HPI Physical exam: Constitutional: Alert, in no distress. Neck: Supple, Full range of motion. No lymphadenopathy. No palpable thyroid masses. Respiratory: Clear to auscultation. Cardiovascular: S1 S2 regular. No murmurs. Psychiatric: Normal affect [facility] Medical History Pancreatic cancer CHF (congestive heart failure) Renal insufficiency Peripheral sensory neuropathy due to type 2 diabetes mellitus Type II diabetes mellitus History of transfusion of packed red blood cells Migraine History of placement of stent in LAD coronary artery Osteoporosis Hyperlipidemia Depression CAD (coronary artery disease) Sleep apnea On anticoagulant therapy TIA (transient ischemic attack) Myocardial infarction Obesity Diabetes Dyslipidemia History of colon cancer HTN (hypertension) Carotid stenosis, asymptomatic GERD (gastroesophageal reflux disease) Colon cancer Pre-op chest exam Lung cancer Pulmonary nodules Dyspnea COPD (chronic obstructive pulmonary disease) Pulmonary nodule Surgical History History of surgery History of incisional hernia repair (07/06/24) Hx of tonsillectomy Hx of tubal ligation History of dental surgery Hx of cardiac catheterization History of lobectomy of lung Family History Mother Stroke Diabetes Father Alcoholic cirrhosis of liver Social History Household Members: None Housing: House Are you a primary career specialist to a significant other at home: No Do you presently have visiting nurse or other home services: No Patient Tobacco Use Status: Former Tobacco user Tobacco use type: Cigarette Years Smoked: 20+ Years Second Hand Smoke Exposure: No service: No Physical Exam Vital Signs: Last Vital Signs Pulse 79 03/30/25 13:57 BP 100/52 L 03/30/25 13:57 Pulse Ox 96 03/30/25 13:57 Oxygen Delivery Method Room Air 03/30/25 13:57 BMI result Body Mass Index 24.6 Office Procedures Glucose Monitoring Details Details: see [facility] 72755 - Glucose monitoring, continuous-physician I&R Procedure code (CPT) selection complete Results Reviewed Results Reviewed: Laboratory Tests 05/06/24 05/13/24 23:31 11:56 Plt Count 241 Creatinine 1.13 1.10 Estimated GFR 47 49 AST 17 ALT 21 Laboratory Tests 01/26/25 02/16/25 13:14 10:48 Creatinine 1.16 Estimated GFR 46 Hgb A1c (Clinic) 9.1 H C-Peptide 5.09 H Triglycerides 159 H Cholesterol 136 LDL Cholesterol, Calc 58 HDL Cholesterol 47 TSH 2.51 Assessment & Plan Assessment & Plan (1) Type II diabetes mellitus: Code(s): E11.9 - Type 2 diabetes mellitus without complications Category: Medical Qualifiers: Diabetes mellitus complication detail: with nephropathy Diabetes mellitus complication status: with kidney complications Diabetes mellitus group home insulin use: without group home use Qualified Code(s): E11.21 - Type 2 diabetes mellitus with diabetic nephropathy Plan In summary this is a 74-year-old female with type 2 diabetes with micro and macrovascular complications recently diagnosed with pancreatic cancer who underwent tumor resection and splenectomy. Reasonable goal for hemoglobin A1c is 7.5-8% given medical history. Remain off GLP 1 due to risk of pancreatitis. Increase Tresiba to 12 units nighlty Increase scale for lispro and administer 15 minutes before meals: <120 0 units 121-150 4 units 151-200 8 unit 201-250 10 units 251-300 12 units 301-350 14 units 351-400 16 units >400 18 units and call the office If you experience low blood sugar (under 70), treat this by eating a chewable fruit candy like skittles or jelly beans (about 8 pieces), 4 ounces (1/2 cup) of fruit juice (not diet), 1 tablespoon of honey or 4 glucose tablets. If your blood sugar is under 55, take double the amount of one of the above. Follow up in 8 weeks for Type II diabetes or sooner if needed. Orders: Orders AMB Glucose Monitoring Today E11.9 - Type 2 diabetes mellitus without complications Medications: New lancets (OneTouch Delica Plus Lancet) Use as directed to check blood glucose four daily. 200 ea 5RF E11.21 - Type 2 diabetes mellitus with diabetic nephropathy Changed From insulin degludec (Tresiba FlexTouch U-200 insulin) 8 units subcut BEDTIME To insulin degludec (Tresiba FlexTouch U-200 insulin) 12 units (0.06 mL) subcut BEDTIME 9 mL 5RF Refilled glucose (Dex4 Glucose) until blood sugar is >70 16 grams (4 x 4 gram) PO Q15M PRN 10 tabs 3RF hypoglycemia (hipoglucemia) Discontinued lancets (OneTouch UltraSoft 2 Lancet) Discontinued Reason: Doctor's Order As directed checks 3 X/day 100 ea 5RF blood sugar diagnostic (OneTouch Ultra Test strips) Discontinued Reason: Doctor's Order As directed tests 3 X/day 100 ea 0RF blood-glucose meter (FreeStyle Lite Meter kit) Discontinued Reason: Doctor's Order as directed to monitor blood glucose 1 ea 0RF E11.21 - Type 2 diabetes mellitus with diabetic nephropathy Patient Instructions: Increase Tresiba to 12 units nighlty Increase scale for lispro and administer 15 minutes before meals: <120 0 units 121-150 4 units 151-200 8 unit 201-250 10 units 251-300 12 units 301-350 14 units 351-400 16 units >400 18 units and call the office If you experience low blood sugar (under 70), treat this by eating a chewable fruit candy like skittles or jelly beans (about 8 pieces), 4 ounces (1/2 cup) of fruit juice (not diet), 1 tablespoon of honey or 4 glucose tablets. If your blood sugar is under 55, take double the amount of one of the above. Recheck your blood sugar in 15 minutes. Coding Level of Care Code Est Pt Level 4 (44609) Diagnoses Type 2 diabetes mellitus with diabetic nephropathy, without long-term current use of insulin E11.21 Diabetes mellitus complication detail: with nephropathy Diabetes mellitus complication status: with kidney complications Diabetes mellitus group home insulin use: without roll examiner use CPT Codes Details - CPT: 20039 - Glucose monitoring, continuous-physician I&R ([id number])
[2025-03-30 14:07] LABS: Glucose, Whole Blood 217 mg/dL (60-115)
--- OUTSIDE RECORDS SUMMARY | 2025-03-30 15:13 | XMS_ITS | Clinical Summary ---
Author Organization [facility] Address [address] [place] [address] Care Team Providers Care Director Of Infection Prevention Name Role Phone Jung Carranza MD Primary Care Provider +1- [phone] Allergies Active Allergy Reactions Criticality Noted Date [...] 88 07/01/2024 1:49 PM EDT Temperature 36.9 C (98.4 F) 07/01/2024 1:49 PM EDT Respiratory Rate - - Oxygen Saturation 96% [...] - 1-dose 75+ series) 2025 Influenza Vaccine (#1) 2025 2, 06/27/2021, 06/16/2021, Additional history exists Pneumococcal Vaccine Completed 07/01/2019, 07/14/20 18 Hepatitis B Vaccines Aged Out No long er eligible based on patient's age to complete this topic RSV Ped < 20 months Aged Out No longe r eligible based on patient's age to complete this topic Care Teams Director Of Infection Prevention Relationship Specialty Start Date End Date Bashiruddin, Jung, MD [address] [facility] [address] [place] [address] PCP - General Internal Medicine 02/12/24
--- OUTSIDE RECORDS SUMMARY | 2025-03-30 15:14 | XMS_ITS | Clinical Summary ---
Author Organization [facility] Address [address] [place] [address] Phone Care Team Providers Care Senior Escrow Officer Name Role Phone Jung Carranza MD Primary Care Provider [phone] Allergies Active Allergy Reactions Criticality Noted Date Comments Aspirin Swelling High 08/12/2017 Latex Itching 08/12/2017 Levofloxacin Itching 08/12/2017 Medications calcium carbonate/vitamin D3 (CALCIUM + D ORAL) [...] each day. 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 60 tablet 6 10/29/19 25 Active rosuvastatin (CRESTOR) 40 mg tablet 11/04/19 25 Active Trintellix 10 mg tablet 11/04/19 25 Active gabapentin (NEURONTIN) 300 mg capsule Take 1 capsule (300 mg total) by mouth if needed. Active budesonide-glycopy r-formoterol (Breztri Aerosphere) 160-9-4.8 mcg/actuation HFA aerosol inhaler inhaler Inhale 2 puffs by mouth 2 (two) times a day. Active insulin lispro (HumaLOG KwikPen) 100 unit/mL injection [...] and nightly). 120 each 01/13/20 25 Active ondansetron ODT (ZOFRAN-ODT) 8 mg disintegrating tabletIndications: Malignant neoplasm of tail of pancreas ([facility] V24, [facility] V28) Dissolve 1 tablet (8 mg total) on top of the tongue every 8 (eight) hours if needed for nausea or vomiting. 20 tablet 11 03/29/20 25 025 Active prochlorperazine (COMPAZINE) 10 mg tablet Take 1 tablet (10 mg total) by mouth every 6 (six) hours if needed for vomiting or nausea. 60 tablet 3 03/29/20 25 025 Active oxyCODONE (ROXICODONE) 5 mg immediate release tablet Take 1 tablet (5 mg total) by mouth every 6 (six) hours if needed for severe pain. Max Daily Amount: 20 mg 12 tablet 01/12/20 25 025 Discontinu ed(Discont inued by another clinician) lidocaine-prilocai ne (EMLA) 2.5-2.5 % cream Apply 1 Application topically 1 (one) time for 1 dose. 30 minutes prior to Mediport access 30 g 2 03/29/20 25 025 Active Problems Problem Noted Date Diagnosed Date Left upper quadrant abdominal pain 03/08/2025 Family history of pancreatic cancer 02/01/2025 Lung cancer ([facility] V24, [facility] V28) Overview (02/01/2025): s/p L lobectomy in 2004, R wedge resection 2009 TIA (transient ischemic attack) 01/19/2025 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 ([facility] V24, [facility] V28) 12/22/2024 Cancer Staging:Pathologic stage from 01/07/2025:Stage IIA(pT3, pN0, cM0) - Signed by Carmen Felix MD on 02/02/2025 Malignant neoplasm of upper lobe of right lung ([facility]/HCC V24, CMS/HCC V28) 07/01/2024 Malignant neoplasm of ascend ing colon ([facility]/HCC V24, CMS/HCC V28) 02/21/2021 Asthma-COPD overlap syndrome (CMS/HCC V24, [facility]/H CC V28) 11/06/2017 COPD (chronic obstructive pu lmonary disease) ([facility] V24, CMS/HCC V28) 11/06/2017 Gastroesophageal reflux 11/06/2017 Hiatal hernia 11/06/2017 Hyperlipidemia 11/06/2017 Pulmonary nodules 11/06/2017 Adenocarcinoma of lung ([facility]/HCC V24, CMS/HCC V28 ) 06/01/2009 Osteoporosis 02/16/2009 Encounters Date Type Department Care Team Description 03/29/2025 11:45 AM EDT Office Visit Hematology Oncology [address] [place] [phone] Carmen Mcneill MD Malignant neoplasm of tail of pancreas ([facility] V24, CMS/[facility] V28) (Primary Dx); Malignant neoplasm of ascending colon (CMS/HCC V24, CMS/HCC V28); Adenocarcinoma of right lung (CMS/HCC V24, [facility]/HCC V28); TIA (transient ischemic attack) 03/23/2025 11:58 AM EDT - 03/23/2025 11:59 PM EDT Hospital Encounter Interventional Radiology [address] [place] [phone] Malignant neoplasm of tail of pancreas (CMS/HCC V24, CMS/HCC V28) Discharge Disposition: Home or Self Care 03/16/2025 2:52 PM EDT - 03/16/2025 11:59 PM EDT Hospital Encounter CT Scan [address] [place] [phone] Malignant neoplasm of tail of pancreas (CMS/HCC V24, CMS/HCC V28) Discharge Disposition: Home or Self Care 03/08/2025 11:45 AM EDT Office Visit Hematology Oncology [address] [place] [phone] Subramonia-Carmen Lofton MD Malignant neoplasm of tail of pancreas (CMS/HCC V24, CMS/HCC V28) (Primary Dx); Left upper quadrant abdominal pain 02/17/2025 10:00 AM EDT Office Visit General Surgery - [place] [address] [phone] Diogenes Medrano MD Malignant neoplasm of tail of pancreas ([facility]/HCC V24, CMS/HCC V28) (Primary Dx) 02/02/2025 Telephone Hematology Oncology [address] [place] [phone] Lindsey Woodard DO 02/01/2025 3:55 PM EDT Lab Draw Station - [address] [phone] Malignant neoplasm of tail of pancreas (CMS/HCC V24, [facility]/HCC V28) 02/01/2025 2:45 PM EDT Office Visit Hematology Oncology [address] [place] [phone] Carmen Mcneill MD Malignant neoplasm of tail of pancreas (CMS/HCC V24, CMS/HCC V28) (Primary Dx); Family history of pancreatic cancer; Weight loss; Adenocarcinoma of right lung (CMS/HCC V24, CMS/HCC V28); Malignant neoplasm of upper lobe of right lung (CMS/HCC V24, CMS/HCC V28); Malignant neoplasm of ascending colon (CMS/HCC V24, CMS/HCC V28); Age-related osteoporosis without current pathological fracture 01/20/2025 10:45 AM EDT Office Visit [facility] [address] [place] [phone] Diogenes Medrano MD Malignant neoplasm of tail of pancreas (CMS/HCC V24, CMS/HCC V28) (Primary Dx) 01/19/2025 3:12 AM EDT - 01/19/2025 2:33 PM EDT Hospital Encounter Emergency [address] [place] [phone] Jerrell Cameron MD Aphasia (Primary Dx) Discharge Disposition: Home or Self Care 01/07/2025 11:30 AM EDT - 01/07/2025 5:00 PM EDT Surgery [facility] OR [address] [place] [phone] Diogenes Medrano MD LAPAROSCOPIC DISTAL PANCREATECTOMY W/ SPLENECTOMY, LAP LYSIS OF ADHESIONS [32665 (CPT ) +1 more] 01/07/2025 10:58 AM EDT Anesthesia Event [facility] OR [address] [place] [phone] Johnathon Moses DO Hard, Shannon, CRNA 01/07/2025 9:55 AM EDT - 01/11/2025 1:41 PM EDT Hospital Encounter Medical Surgical Unit [address] [place] [phone] Diogenes Medrano MD Malignant neoplasm of tail of pancreas (CMS/HCC V24, CMS/HCC V28) Discharge Disposition: Home-Health Care [facility] 12/30/2024 10:45 AM EDT Office Visit General Surgery - [address] [place] [phone] Diogenes Medrano MD Malignant neoplasm of tail of pancreas ([facility] V24, [facility] V28) (Primary Dx) from Last 3 Months Immunizations Name Administration Dates Next Due HiB PRP-T conjugate (Acthib, Hiberix) 6wks and older 01/08/2025(Deferred: Patient Refused) Meningococcal B, Recombinant (Bexsero) 16yo to less than 24yo 01/08/2025 Pfizer (ages 12 & older) MENG S-CoV-2 COVID-19, [...] Comments Asthma 11/06/2017 DX:Asthma Asthma-COPD overlap syndrome ([facility] V24, [facility] V28) 11/06/2017 DX:Asthma-COPD overlap syndr ome (HCC) COPD (chronic obstructive pu lmonary disease) ([facility] V24, [facility] V28) 11/06/2017 DX:COPD (chronic o bstructive pulmonary disease) ([facility]) Gastroesophageal reflux 11/06/2017 DX:Gastr oesophageal reflux Hiatal hernia 11/06/2017 DX:Hiatal hernia History of lung cancer 11/06/2017 DX:Histor y of lung cancer; COMMENT: X2, s/p resection Hyperlipidemia 11/06/2017 DX:Hyperlipidemi a Pulmonary nodules 11/06/2017 DX:Pulmonary n odules Lung cancer ([facility] V24, [facility] V28) DX:Lung cancer (HCC) COPD (chronic obstructive pu lmonary disease) ([facility] V24, [facility] V28) DX:COPD (chronic o bstructive pulmonary disease) (HCC) GERD (gastroesophageal reflux disease) DX:GERD (gastroesophageal reflux disease) Colon cancer ([facility] V24, [facility] V28) DX:Colon cancer (HCC) Diabetes mellitus ([facility] V 24, [facility] V28) DX:Diabetes mellitus (HCC) NE, old Heart disease Shortness of breath Liver [...] Sign Reading Time Taken Comments Blood Pressure 114/71 03/29/2025 11:54 AM EDT Pulse 82 03/29/2025 11:54 AM EDT Temperature 37 C (98.6 F) 03/29/2025 11:54 AM EDT Respiratory Rate 18 03/23/2025 2:18 PM EDT Oxygen Saturation 96% 03/29/2025 11:54 AM EDT Inhaled Oxygen Concentration - - Weight 65.8 kg (145 lb) 03/29/2025 11:54 AM EDT Height 162.6 cm (5' 4 ) 03/29/2025 11:54 AM EDT Body Mass Index 24.89 03/29/2025 11:54 AM EDT Plan of Treatment Upcoming Encounters Date Type Department Care Team (Late st Contact Info) Description 04/05/2025 8:30 AM EDT Appointment [facility] [address] [place] [phone] 04/12/2025 2:30 PM EDT Office Visit Hematology Oncology [address] [place] [phone] Vannessa Palma PA [address] [place] [address] 04/26/2025 3:15 PM EDT Office Visit Hematology Oncology [address] [place] [phone] Carmen Felix MD [address] [place] [phone] 05/19/2025 9:45 AM EDT Office Visit General Surgery - [place] [address] [phone] Diogenes Medrano MD [address] [phone] Health Maintenance Due Date Last Done Comments Diabetes: Annual Foot Exam 02/29/1960 Diabetes: Annual [...] Diabetes: Annual Urine Albumin-Creatinine Ratio (uACR) 10/02/2024 Influenza Vaccine (#1) 2025 , 07/17/2023, 06/27/2022, Additional history exists Diabetes: Blood Sugar Control Test (HGBA1C) 07/22/2025 01/19/2025 Falls Risk Assessment 01/11/2026 01/11/2025 Diabetes: Annual GFR (Glomerular Filtration Rate) 03/23/2026 03/23/2025, 02/01/2025, 01/19/2025, Additional history exists Hypertension/CHF/CAD Annual BMP Blood Test 03/23/2026 03/23/2025, 02/01/2025, 01/19/2025, Additional history exists Cholesterol Screening (Lipid Panel) 01/19/2030 01/19/2025, 03/09/2024 Colorectal Cancer Screening: Colonoscopy 12/17/2034 12/17/2024 RSV Immunization Adult Patients Completed 07/16/2023 Meningococcal B Vaccine Aged Out 01/08/2025 No [...] on patient's age to complete this topic Medical Devices Implanted Type Area Pumper Gager Device Identifier Shelf Expiration Date Model / Serial / Lot Port Pwr Slim Poly 6f Sandra Inte Attach - [id number] Implanted:Qty: 1 on 03/23/2025 by Blake Beaulieu MD at [facility] Central/Jaciel pheral Catheters and Ports Right: Chest Wall CR BARD PERIPHER[employer]ULAR [id number] 11/13/2025 [id number] / / [id number] Procedures Procedure Name Priority Date/Time Associated Diagnosis Comments IR INSERT TUNNELED CVAD W SUBQ PORT MORE 5YRS RIGHT Routine 03/23/2025 2:12 PM EDT Malignant neoplasm of tail of pancreas (CMS/HCC V24, CMS/HCC V28) CBC WITH AUTO DIFFERENTIAL Routine 03/23 12:21 PM EDT Malignant neoplasm of tail of pancreas (CMS/HCC V24, CMS/HCC V28) CBC AND DIFFERENTIAL Routine 03/23/2025 12:21 PM EDT Malignant neoplasm of tail of pancreas (CMS/HCC V24, CMS/HCC V28) COMPREHENSIVE METABOLIC PANEL Routine 03/23/2025 12:21 PM EDT Malignant neoplasm of tail of pancreas (CMS/HCC V24, CMS/HCC V28) CT ABDOMEN PELVIS W CONTRAST Routine 03/16/2025 3:13 PM EDT Malignant neoplasm of tail of pancreas (CMS/HCC V24, CMS/HCC V28) CBC WITH AUTO DIFFERENTIAL Routine 02/01 3:53 PM EDT Malignant neoplasm of tail of pancreas (CMS/HCC V24, CMS/HCC V28) CANCER ANTIGEN 19-9 Routine 02/01/2025 3:53 PM EDT Malignant neoplasm of tail of pancreas (CMS/HCC V24, CMS/HCC V28) COMPREHENSIVE METABOLIC PANEL Routine 02/01/2025 3:53 PM EDT Malignant neoplasm of tail of pancreas (CMS/HCC V24, CMS/HCC V28) CBC AND DIFFERENTIAL Routine 02/01/2025 3:53 PM EDT Malignant neoplasm of tail of pancreas (CMS/HCC V24, CMS/HCC V28) ECG ANNOTATED 01/20/2025 MR BRAIN WO CONTRAST [...] LINE (CHARGE) Routine 01/07/2025 11:34 AM EDT TN LAPAROSCOPIC SPLENECTOMY SURGICAL 01/07/2025 10:58 AM EDT Malignant neoplasm of tail of pancreas (CMS/HCC V24, CMS/HCC V28) Special Needs Booking in Dr. Kym Medrano'lyndsey block. Asking 5 hours for this case - Laparoscopic pancreatectomy & splenectomy ? Open; Patient will be in patient after surgery. TN PANCREATECTOMY DISTAL SUBTOTAL WO PANCREATICOJEJUNOSTOMY 01/07/2025 10:58 AM EDT Malignant neoplasm of tail of pancreas (CMS/HCC V24, CMS/HCC V28) Special Needs Booking in Dr. Kym Sheehan block. Asking 5 hours for this case - Laparoscopic pancreatectomy & splenectomy ? Open; Patient will be in patient after surgery. POCT GLUCOSE BLOOD Routine 01/07/2025 10:17 AM EDT COLONOSCOPY Routine 12/17/2024 10:44 AM EDT Personal history of colon cancer from Last 3 Months or Most Recently Relevant to Health Maintenance Results * IR Insert Tunneled CVAD w Subq Port More 5yrs Right (03/23/2025 2:12 PM EDT) Anatomical Region Laterality Modality Right Interventional R adiology 03/23/2025 2:17 PM EDT Narrative 03/23/2025 2:17 PM EDT History: Cancer Procedure performed: 1. Ultrasound and fluoroscopic guided placement of a subcutaneous port via the right internal jugular vein. 2. IV moderate sedation Physician: Fabricio Beaulieu MD FSIR Anesthesia: IV moderate sedation with intravenous fentanyl and versed was administered under my direct supervision for a total of 30 minutes with continuous physiologic monitoring. 18 mL of 1% lidocaine was administered for local anesthesia. Specimen: None Drain: None Estimated blood loss: Minimal Complications: None Procedure in detail: After informed consent was obtained the patient was placed supine on the angiographic table and the right lower neck and upper chest were draped and prepped using maximum sterile barrier. Moderate sedation initiated and then local anesthetic administered. Intravenous access was obtained under real-time ultrasound guidance into the internal jugular vein using a micropuncture set. The microwire was then exchanged for a 0.035 Amplatz wire which was advanced under fluoroscopy into the inferior vena cava. Attention was then turned to the upper chest wall where the appropriate region was localized and anesthetized. A horizontal incision was made approximately 3 cm in length. Using blunt dissection a subcutaneous pocket was formed for placement of the port. A subcutaneous tunnel was then performed from the pocket to the initial venous access site. The catheter was advanced through the tunnel. After hemostasis was achieved the port was attached to the catheter and placed within the pocket. An 8 Gabonese peel-away sheath with a hemostatic valve placed at the initial venous access site. The catheter was then cut to length and advanced through the peel-away sheath. The peel-away sheath was removed and position of the catheter was checked under fluoroscopy. The catheter was then flushed and heparinized as per protocol. The port pocket was closed with subcutaneous 2-0 Vicryl sutures. Dermabond applied along the initial venous access site and over the port incision site. The patient tolerated the procedure well and left the department in stable condition without immediate complications. FINDINGS: Single ultrasound image demonstrates patent right internal jugular vein. Single fluoroscopic image of the right chest shows newly placed Port-A-Cath with tip within the distal superior vena cava. Summary: Successful placement of a port via the right internal jugular vein. -------- FINAL REPORT -------- Dictated By: Blake Beaulieu Dictated Date: 03/23/2025 14:17 ET Assigned Physician: Blake Beaulieu Reviewed and Electronically Signed By: Blake Beaulieu Signed Date: 03/23/2025 14:17 ET Workstation ID: [id number] Transcribed By: Self Edit Transcribed Date: 03/23/2025 14:17 ET Procedure Note Blake Beaulieu MD - 03/23/2025 History: Cancer Procedure performed: 1. Ultrasound and fluoroscopic guided placement of a subcutaneous portvia the right internal jugular vein. 2. IV moderate sedation Physician: Fabricio Beaulieu MD FSIR Anesthesia: IV moderate sedation with intravenous fentanyl and versed wasadministered under my direct supervision for a total of 30 minutes withcontinuous physiologic monitoring. 18 mL of 1% lidocaine was administeredfor local anesthesia. Specimen: None Drain: None Estimated blood loss: Minimal Complications: None Procedure in detail: After informed consent was obtained the patient was placed supine on theangiographic table and the right lower neck and upper chest were drapedand prepped using maximum sterile barrier. Moderate sedation initiated andthen local anesthetic administered. Intravenous access was obtained under real-time ultrasound guidance intothe internal jugular vein using a micropuncture set. The microwire wasthen exchanged for a 0.035 Amplatz wire which was advanced underfluoroscopy into the inferior vena cava. Attention was then turned to the upper chest wall where the appropriateregion was localized and anesthetized. A horizontal incision was madeapproximately 3 cm in length. Using blunt dissection a subcutaneous pocketwas formed for placement of the port. A subcutaneous tunnel was thenperformed from the pocket to the initial venous access site. The catheterwas advanced through the tunnel. After hemostasis was achieved the portwas attached to the catheter and placed within the pocket. An 8 Frenchpeel-away sheath with a hemostatic valve placed at the initial venousaccess site. The catheter was then cut to length and advanced through thepeel-away sheath. The peel-away sheath was removed and position of thecatheter was checked under fluoroscopy. The catheter was then flushed and heparinized as per protocol. The portpocket was closed with subcutaneous 2-0 Vicryl sutures. Dermabond appliedalong the initial venous access site and over the port incision site. Thepatient tolerated the procedure well and left the department in stablecondition without immediate complications. FINDINGS: Single ultrasound image demonstrates patent right internaljugular vein. Single fluoroscopic image of the right chest shows newly [id number] with tip within the distal superior vena cava. Summary: Successful placement of a port via the right internal jugularvein. -------- FINAL REPORT -------- Dictated By: Blake Beaulieu Dictated Date: 03/23/2025 14:17 ET Assigned Physician: Blake Beaulieu Reviewed and Electronically Signed By: Blake Beaulieu Signed Date: 03/23/2025 14:17 ET Workstation ID: [id number] Transcribed By: Self Edit Transcribed Date: 03/23/2025 14:17 ET Subramony Isidro STORY IMG IR PROCEDURES F inal Result * (ABNORMAL) CBC auto differential (03/23/2025 12:21 PM EDT) Only the most recent of6 resultswithin the time period is included. WBC 7.4 4.8 - 10.8 K/mcL LAB HEMETOLOGY METHOD 03/23/2025 1:23 PM EDT [facility] RBC 4.70 3.80 - 4.80 M/mcL LAB HEMETOLOGY METHOD 03/23/2025 1:23 PM EDT [facility] Hemoglobin 13.6 11.5 - 16.0 g/dL LAB HEMETOLOGY METHOD 03/23/2025 1:23 PM EDT [facility] Hematocrit 42.0 35.0 - 47.0 % LAB HEMETOLOGY METHOD 03/23/2025 1:23 PM EDT [facility] MCV 89.0 79.0 - 98.0 FL LAB HEMETOLOGY METHOD 03/23/2025 1:23 PM EDT [facility] MCH 28.8 27.0 - 32.0 pcg LAB HEMETOLOGY METHOD [facility]/23[facility]2025 [facility] MCHC 32.4 32.0 - 37.0 g/dL LAB HEMETOLOGY METHOD 03/23/2025 1:[facility] RDW 13.0 11.0 - 15.0 % LAB HEMETOLOGY METHOD 03/23/2025 1:23 PM EDT [facility] Platelets 424(H) 130 - 400 K/mcL LAB HEMETOLOGY METHOD 03/23[facility]2025 1[facility] MPV 10.4 7.0 - 11.0 FL LAB HEMETOLOGY METHOD 03/23/2025 1:23 [facility] NRBC 0.0 <1.0 % LAB HEMETOLOGY METHOD 03/23/2025 1:23 [facility] NRBC Absolute 0.00 <0.10 K/mcL LAB HEMETOLOGY METHOD 03/23/2025 1:23 [facility] Neutrophils Relative 63.1 % LAB HEMETOLOGY METHOD 03/23/2025 1:23 [facility] Lymphocytes Relative 22.1 % LAB HEMETOLOGY METHOD 03/23/2025 1:23 PM [facility] Monocytes Relative 9.3 % LAB HEMETOLOGY METHOD 03/23/2025 1:23 PM [facility] Eosinophils Relative 4.5 % LAB HEMETOLOGY METHOD 03/23/2025 1:23 PM [facility] Basophils Relative 0.7 % LAB HEMETOLOGY METHOD 03/23/2025 1:23 PM [facility] Immature Granulocytes Relative 0.3 % LAB HEMETOLOGY METHOD 03/23/2025 1:23 PM EDT [facility] Neutrophils Absolute 4.66 1.50 - 7.00 K/mcL LAB HEMETOLOGY METHOD 03/23/2025 1:23 PM EDT [facility] Lymphocytes Absolute 1.63 1.00 - 5.00 K/mcL LAB HEMETOLOGY METHOD 03/23/2025 1:23 PM EDT [facility] Monocytes Absolute 0.69 0.20 - 1.00 K/mcL LAB HEMETOLOGY METHOD 03/23/2025 1:23 PM EDT [facility] Eosinophils Absolute 0.33 0.00 - 0.50 K/mcL LAB HEMETOLOGY METHOD 03/23/2025 1:23 PM EDT [facility] Basophils Absolute 0.05 0.00 - 0.20 K/mcL LAB HEMETOLOGY METHOD 03/23/2025 1:23 PM EDT [facility] Immature Granulocytes Absolute 0.02 0.00 - 0.03 K/mcL LAB HEMETOLOGY METHOD 03/23/2025 1:23 PM EDT [facility] Blood Venous blood specimen / Unknown Venipuncture / Unknown 03/23/2025 12:21 PM EDT 03/23/2025 12:59 PM EDT Carmen Felix MD LAB BLOOD ORDERABLE S Final Result [facility] [address] [place] [address], * (ABNORMAL) Comprehensive metabolic panel (03/23/2025 12:21 PM EDT) Only the most recent of5 resultswithin the time period is included. Sodium 139 133 - 145 mmol/L LAB CHEMISTRY METHOD 03/23/2025 3:45 PM EDT [facility] Potassium 4.2 3.5 - 5.5 mmol/L LAB CHEMISTRY METHOD 03/23/2025 3:45 PM [facility] Chloride 107 96 - 110 mmol/L LAB CHEMISTRY METHOD 03/23/2025 3:45 PM [facility] CO2 27 21 - 32 mmol/L LAB CHEMISTRY METHOD 03/23/2025 3:45 PM [facility] Anion Gap 5 3 - 11 LAB CHEMISTRY METHOD 03/23/2025 3:45 PM [facility] Glucose 231(H) 70 - 100 mg/dL LAB CHEMISTRY METHOD 03/23/2025 3:45 PM [facility] BUN 27(H) 5 - 25 mg/dL LAB CHEMISTRY METHOD 03/23/2025 3:45 PM [facility] Creatinine 0.95 0.50 - 1.10 mg/dL LAB CHEMISTRY METHOD 03/23/2025 3:45 PM [facility] eGFR 63 >=60 mL/min/1. 73m2 LAB CHEMISTRY METHOD 03/23/2025 3:45 PM [facility] Comment:Calculation based on the Chronic Kidney Disease Epidemiology Collaboration (CKD-EPI) equation refit without adjustment for race. BUN/Creatinine Ratio 28.4 LAB CHEMISTRY METHOD 03/23/2025 3:45 PM [facility] Calcium 9.7 8.5 - 10.5 mg/dL LAB CHEMISTRY METHOD 03/23/2025 3:45 PM [facility] AST (SGOT) 53(H) 10 - 42 unit/L LAB CHEMISTRY METHOD 03/23/2025 3:45 PM [facility] ALT (SGPT) 93(H) 10 - 60 unit/L LAB CHEMISTRY METHOD 03/23/2025 3:45 PM [facility] Alkaline Phosphatase 52 42 - 121 unit/L LAB CHEMISTRY METHOD 03/23/2025 3:45 PM [facility] Total Protein 6.4 6.0 - 8.0 g/dL LAB CHEMISTRY METHOD 03/23/2025 3:45 PM EDT [facility] Albumin 3.6 3.2 - 5.0 g/dL LAB CHEMISTRY METHOD 03/23/2025 3:45 PM EDT [facility] Total Bilirubin 1.0 0.0 - 1.4 mg/dL LAB CHEMISTRY METHOD 03/23/2025 3:45 PM EDT [facility] Blood Venous blood specimen / Unknown Venipuncture / Unknown 03/23/2025 12:21 PM EDT 03/23/2025 12:59 PM EDT us Subramony Isidro STORY LAB BLOOD ORDERABLE S Final Result [facility] [address] [place] [address], * CT Abdomen Pelvis w Contrast (03/16/2025 3:13 PM EDT) Anatomical Region Laterality Modality Body Computed Tomogra phy 03/16/2025 4:29 PM EDT Impressions 03/16/2025 5:30 PM EDT Distal pancreatectomy and splenectomy. Right hemicolectomy. No recurrent or metastatic disease in the abdomen/pelvis. -------- FINAL REPORT -------- Dictated By: DREW GUTIERREZ Dictated Date: 03/16/2025 16:29 ET Assigned Physician: DREW GUTIERREZ Reviewed and Electronically Signed By: DREW GUTIERREZ Signed Date: 03/16/2025 17:30 ET Workstation ID: [id number] Transcribed By: Self Edit Transcribed Date: 03/16/2025 16:29 ET Narrative 03/16/2025 5:30 PM EDT PROCEDURE: CT ABDOMEN/PELVIS INDICATION: Pancreatic cancer, pain TECHNIQUE: CT of the abdomen and pelvis following the intravenous administration of 90cc Isovue 370. Multiplanar reformats. The examination was performed utilizing dose reduction techniques. Total DLP 733 COMPARISON: 11/27/[address] 12/11/2024 FINDINGS: LOWER THORAX: Bibasilar atelectasis/scarring. Moderate hiatal hernia, unchanged. HEPATOBILIARY: Hepatic steatosis. Subcentimeter left hepatic cysts. No new liver lesions. Gallbladder and biliary tree are within normal limits. SPLEEN: Splenectomy PANCREAS: Distal pancreatectomy. Small fluid at the pancreatic resection site compatible with postsurgical change. ADRENALS: No nodules. KIDNEYS/URETERS: No hydronephrosis, stones, or solid mass. PELVIC ORGANS/BLADDER: The uterus and bladder are within normal orbits. No adnexal mass. PERITONEUM / RETROPERITONEUM: No ascites or free air. No retroperitoneal lymphadenopathy. VESSELS: Abdominal aorta is unchanged with small infrarenal abdominal aortic aneurysm measuring up to 2.4 cm. Portal vein is patent. GI TRACT: Right hemicolectomy. Colonic diverticulosis. No bowel obstruction or wall thickening. BONES AND SOFT TISSUES: Postsurgical changes along the ventral abdominal wall. No suspicious lytic or blastic lesions. Degenerative changes seen throughout the bones. Procedure Note Drew Gutierrez MD - 03/16/2025 PROCEDURE: CT ABDOMEN/PELVIS INDICATION: Pancreatic cancer, pain TECHNIQUE: CT of the abdomen and pelvis following the intravenousadministration of 90cc Isovue 370. Multiplanar reformats. The examinationwas performed utilizing dose reduction techniques. Total DLP 733 COMPARISON: 11/27/[address] 12/11/2024 FINDINGS: LOWER THORAX: Bibasilar atelectasis/scarring. Moderate hiatal hernia,unchanged. HEPATOBILIARY: Hepatic steatosis. Subcentimeter left hepatic cysts. Nonew liver lesions. Gallbladder and biliary tree are within normallimits. SPLEEN: Splenectomy PANCREAS: Distal pancreatectomy. Small fluid at the pancreatic resectionsite compatible with postsurgical change. ADRENALS: No nodules. KIDNEYS/URETERS: No hydronephrosis, stones, or solid mass. PELVIC ORGANS/BLADDER: The uterus and bladder are within normal orbits.No adnexal mass. PERITONEUM / RETROPERITONEUM: No ascites or free air. No retroperitoneallymphadenopathy. VESSELS: Abdominal aorta is unchanged with small infrarenal abdominalaortic aneurysm measuring up to 2.4 cm. Portal vein is patent. GI TRACT: Right hemicolectomy. Colonic diverticulosis. No bowelobstruction or wall thickening. BONES AND SOFT TISSUES: Postsurgical changes along the ventral abdominalwall. No suspicious lytic or blastic lesions. Degenerative changes seenthroughout the bones. IMPRESSION: Distal pancreatectomy and splenectomy. Right hemicolectomy. No recurrentor metastatic disease in the abdomen/pelvis. -------- FINAL REPORT -------- Dictated By: DREW GUTIERREZ Dictated Date: 03/16/2025 16:29 ET Assigned Physician: DREW GUTIERREZ Reviewed and Electronically Signed By: DREW GUTIERREZ Signed Date: 03/16/2025 17:30 ET Workstation ID: [id number] Transcribed By: Self Edit Transcribed Date: 03/16/2025 16:29 ET us Subramony Isidro STORY IMG CT PROCEDURES F inal Result * (ABNORMAL) Cancer antigen 19-9 (02/01/2025 3:53 PM EDT) CA 19-9 69.6(H) <=35 U/mL 02/04/2025 1:44 PM EDT [facility] Comment: The Siemens Advia Centaur CA199 Chemiluminescent Immunoassay is used. Results obtained with different assay methods or kits cannot be used interchangeably. Results cannot be interpreted as absolute evidence of the presence or absence of malignant disease. Test performed at [facility], [address] , [place] [address] Sangita Sharma MD, PhD - [employer] Blood Venous blood specimen / Unknown Venipuncture / Unknown 02/01/2025 3:53 PM EDT 02/01/2025 4:38 PM EDT us Subramony Isidro STORY LAB BLOOD ORDERABLE S Final Result [facility] [address] [place] [address] * ECG-Annotated (01/20/2025) us Provider Onbase ECG ORDERABLES Final Result * MR Brain [...] Signed Date: 01/19/2025 12:04 ET Workstation ID: [id number] Transcribed By: Self Edit Transcribed Date: 01/19/2025 12:02 ET Narrative 01/19/2025 12:04 PM EDT PROCEDURE: MR BRAIN WO CONTRAST INDICATION: Neuro deficit, acute, stroke suspected TECHNIQUE: Axial diffusion weighted, as well as T1 and T2-weighted multiplanar imaging without intravenous contrast. COMPARISON: No priors available. FINDINGS: Scattered T2/flair hyperintensities in the supratentorial matter compatible chronic microvascular ischemic changes. Prior left lacunar infarcts. Gradient echo images are unremarkable. Diffusion-weighted images are unremarkable. Symmetric age commensurate volume loss. No hydrocephalus. Unremarkable orbits, orbital soft tissues, mastoid air cells. No acute calvarial abnormality. Unremarkable paranasal sinuses. Midline structures including the midbrain, visualized cervical cord [...] Signed Date: 01/19/2025 12:04 ET Workstation ID: [id number] Transcribed By: Self Edit Transcribed Date: 01/19/2025 12:02 ET Jerrell Cameron MD IMG MRI PROCEDURES Final Re sult * (ABNORMAL) POCT Glucose, blood (01/19/2025 8:54 AM EDT) Only the most recent of23 resultswithin the time period is included. [facility] Glucose POCT 321(H) 70 - 100 mg/dL 01/19/2025 8:55 AM EDT [facility] Blood Capillary blood specimen / Unknown 01/19/2025 8:54 AM EDT 01/19/2025 8:55 AM EDT Jerrell Cameron MD LAB POINT OF CARE T EST DOCKED DEVICE UNSOLICITED RESULTS Final Result [facility] [address] [place] [address], * Troponin I high sensitivity (NOW and then in 1 hour) (01/19/2025 4:51 AM EDT) Only the most recent of2 resultswithin the time period is included. [facility] Signature High Sensitivity Troponin I 16 <=54 ng/L LAB CHEMISTRY METHOD 01/19/2025 5:24 AM EDT [facility] Blood Venous blood specimen / Unknown Venipuncture / Unknown 01/19/2025 4:51 AM EDT 01/19/2025 4:57 AM EDT Narrative [facility] - 01/19/2025 5:24 AM EDT High levels of biotin in samples may falsely decrease hsTroponin values. Use caution when interpreting hsTroponin results in patients taking biotin who exhibit renal impairment (eGFR <60) or in patients taking more than 20 mg/day of biotin. Ragini ROSAS LAB BLOOD ORDERABLES Final Resul t [facility] [address] [place] [address], * XR Chest 1 View (01/19/2025 4:34 AM EDT) Anatomical Region Laterality Modality Body Radiographic Kaelyn ging 01/19/2025 10:3 7 AM EDT Impressions 01/19/2025 10:40 AM EDT FINDINGS/IMPRESSION: Postsurgical changes are noted in the lungs. Stable scarring of left costophrenic angle. No pneumonia or pulmonary edema. No pleural effusion or pneumothorax. Cardiac silhouette is normal in size. Bones are normal. -------- FINAL REPORT -------- Dictated By: DREW GUTIERREZ Dictated Date: 01/19/2025 10:37 ET Assigned Physician: DREW GUTIERREZ Reviewed and Electronically Signed By: DREW GUTIERREZ Signed Date: 01/19/2025 10:40 ET Workstation ID: [id number] Transcribed By: Self Edit Transcribed Date: 01/19/2025 10:37 ET Narrative 01/19/2025 10:40 AM EDT XR CHEST 1 VIEW INDICATION: Stroke, pain [...] Signed Date: 01/19/2025 10:40 ET Workstation ID: [id number] Transcribed By: Self Edit Transcribed Date: 01/19/2025 10:37 ET us Jerrell Cameron MD IMG XR PROCEDURES Final Res ult * ECG 12 lead (01/19/2025 4:01 AM EDT) Ventricular Rate ECG 81 BPM GEMUSE Atrial Rate 81 BPM GEMUSE P-R Interval 132 ms GEMUSE QRS Duration 72 ms GEMUSE Q-T Interval 396 ms GEMUSE QTc 460 ms GEMUSE P Wave Friend 55 degrees GEMUSE R Friend 38 degrees GEMUSE T Friend 38 degrees GEMUSE ECG Interpretation Normal sinus rhythm Nonspecific T wave abnormality Abnormal ECG No previous ECGs available Confirmed by BRIE SKAGGS ([id number]) on 01/19/2025 8:06:58 PM GEMUSE 01/19/2025 4:01 AM EDT 01/19/2025 8:06 PM EDT us Ragini ROSAS ECG ORDERABLES Final Result GEMUSE * (ABNORMAL) Lipid panel with reflex to direct LDL (01/19/2025 3:51 AM EDT) Cholesterol 126 0 - 200 mg/dL LAB CHEMISTRY METHOD 01/19/2025 3:36 PM EDT [facility] Triglycerides 153(H) 0 - 150 mg/dL LAB CHEMISTRY METHOD 01/19/2025 3:36 PM EDT [facility] HDL 50 >=40 mg/dL LAB CHEMISTRY METHOD 01/19/2025 3:36 PM EDT [facility] LDL Calculated 45 0 - 100 mg/dL LAB CHEMISTRY METHOD 01/19/2025 3:36 PM EDT [facility] VLDL Cholesterol Russell 30.6 mg/dL LAB CHEMISTRY METHOD 01/19/2025 3:36 PM EDT [facility] Non HDL Chol. (LDL+VLDL) 76 <145 mg/dL LAB CHEMISTRY METHOD 01/19/2025 3:36 PM EDT [facility] Chol/HDL Ratio 2.5 0.0 - 4.4 LAB CHEMISTRY METHOD 01/19/2025 3:36 PM EDT [facility] Blood Venous blood specimen / Unknown Venipuncture / Unknown 01/19/2025 3:51 AM EDT 01/19/2025 4:08 AM EDT Annabelle ROSAS LAB BLOOD ORDERABLES Final Resul t Performing Organization Address [facility]/ZIP Co de Phone Number [facility] [address] [place] [address], [place] [phone] * Activated partial thromboplastin time (01/19/2025 3:51 AM EDT) aPTT 30.1 24.1 - 39.3 sec LAB COAGULATION METHOD 01/19/2025 4:23 AM EDT [facility] Blood Venous blood specimen / Unknown Venipuncture / Unknown 01/19/2025 3:51 AM EDT 01/19/2025 4:08 AM EDT Ragini ROSAS LAB BLOOD ORDERABLES Final Resul t [facility] [address] [place] [address], [place] [phone] * (ABNORMAL) Prothrombin time with INR (01/19/2025 3:51 AM EDT) Protime 14.7(H) 10.6 - 13.9 sec LAB COAGULATION METHOD 01/19/2025 4:23 AM EDT [facility] INR 1.2 LAB COAGULATION METHOD 01/19/2025 4:23 AM EDT [facility] Blood Venous blood specimen / Unknown Venipuncture / Unknown 01/19/2025 3:51 AM EDT 01/19/2025 4:08 AM EDT us Ragini ROSAS LAB BLOOD ORDERABLES Final Resul t Performing Organization Address City/[facility] de Phone Number [facility] [address] [place] [address], [place] [phone] * Thyroid stimulating hormone (01/19/2025 3:51 AM EDT) TSH 2.17 0.40 - 4.00 mcIU/mL LAB CHEMISTRY METHOD 01/19/2025 5:35 PM EDT [facility] Blood Venous blood specimen / Unknown Venipuncture / Unknown 01/19/2025 3:51 AM EDT 01/19/2025 4:08 AM EDT us Annabelle ROSAS LAB BLOOD ORDERABLES Final Resul t Performing Organization Address [facility] de Phone Number [facility] [address] [place] [address], [place] [phone] * (ABNORMAL) Magnesium (01/19/2025 3:51 AM EDT) Only the most recent of4 resultswithin the time period is included. Magnesium 1.8(L) 1.9 - 2.6 mg/dL LAB CHEMISTRY METHOD 01/19/2025 4:42 AM EDT [facility] Comment:Hemolysis present Blood Venous blood specimen / Unknown Venipuncture / Unknown 01/19/2025 3:51 AM EDT 01/19/2025 4:08 AM EDT us Ragini ROSAS LAB BLOOD ORDERABLES Final Resul t [facility] [address] [place] [address], [place] [phone] * (ABNORMAL) Hemoglobin A1c (01/19/2025 3:51 AM EDT) [facility] Hemoglobin A1C 8.9(H) <6.5 % LAB CHEMISTRY METHOD 01/19/2025 1:38 PM EDT [facility] Mean Bld Glu Estim. 209 mg/dL LAB CHEMISTRY METHOD 01/19/2025 1:38 PM EDT [facility] Blood Venous blood specimen / Unknown Venipuncture / Unknown 01/19/2025 3:51 AM EDT 01/19/2025 4:08 AM EDT Annabelle ROSAS LAB BLOOD ORDERABLES Final Resul t [facility] [address] [place] [address], [place] [phone] * (ABNORMAL) Basic metabolic panel (01/19/2025 3:51 AM EDT) Only the most recent of2 resultswithin the time period is included. [facility] Sodium 133 133 - 145 mmol/L LAB CHEMISTRY METHOD 01/19/2025 4:42 AM T [facility] Potassium 4.9 3.5 - 5.5 mmol/L LAB CHEMISTRY METHOD 01/19/2025 4:42 AM EDT [facility] Comment:Hemolysis present Chloride 100 96 - 110 mmol/L LAB CHEMISTRY METHOD 01/19/2025 4:42 AM EDT [facility] CO2 25 21 - 32 mmol/L LAB CHEMISTRY METHOD 01/19/2025 4:42 AM T [facility] Anion Gap 8 3 - 11 LAB CHEMISTRY METHOD 01/19/2025 4:42 AM EDT [facility] Glucose 307(H) 70 - 100 mg/dL LAB CHEMISTRY METHOD 01/19/2025 4:42 AM EDT [facility] BUN 22 5 - 25 mg/dL LAB CHEMISTRY METHOD 01/19/2025 4:42 AM EDT [facility] Creatinine 1.09 0.50 - 1.10 mg/dL LAB CHEMISTRY METHOD 01/19/2025 4:42 AM EDT [facility] eGFR 53(L) >=60 mL/min/1. 73m2 LAB CHEMISTRY METHOD 01/19/2025 4:42 AM EDT [facility] Comment:Calculation based on the Chronic Kidney Disease Epidemiology Collaboration (CKD-EPI) equation refit without adjustment for race. BUN/Creatinine Ratio 20.2 LAB CHEMISTRY METHOD 01/19/2025 4:42 AM EDT [facility] Calcium 8.9 8.5 - 10.5 mg/dL LAB CHEMISTRY METHOD 01/19/2025 4:42 AM EDT [facility] Blood Venous blood specimen / Unknown Venipuncture / Unknown 01/19/2025 3:51 AM EDT 01/19/2025 4:08 AM EDT Ragini ROSAS LAB BLOOD ORDERABLES Final Resul t [facility] [address] [place] [address], * CT Head Stroke wo Contrast (01/19/2025 [...] Ruddy Kwan MDon 01/19/2025 03:47:[address] PROCEDURES Edited Result - Final * [...] vertebral artery. Moderate bilateral carotid bifurcation calcification [id number]-right with severe short-segment proximal left ICA stenosis. [...] vertebral artery. Moderate bilateral carotid bifurcation calcification [id number]-right with severe short-segment proximal left ICA stenosis. [...] electronically signed by: Ruddy Kwan MDon 01/19/2025 04:23:[address] PROCEDURES Final Result * (ABNORMAL) Complete blood count (01/11/2025 6:19 AM EDT) Only the most recent of2 resultswithin the time period is included. WBC 11.1(H) 4.8 - 10.8 K/mcL LAB HEMETOLOGY METHOD 01/11/2025 7:17 AM [facility] RBC 3.70(L) 3.80 - 4.80 M/mcL LAB HEMETOLOGY METHOD 01/11/2025 7:17 AM [facility] Hemoglobin 11.1(L) 11.5 - 16.0 g/dL LAB HEMETOLOGY METHOD 01/11/2025 7:17 AM [facility] Hematocrit 34.7(L) 35.0 - 47.0 % LAB HEMETOLOGY METHOD 01/11/2025 7:17 AM [facility] MCV 93.0 79.0 - 98.0 FL LAB HEMETOLOGY METHOD 01/11/2025 7:17 AM [facility] MCH 29.8 27.0 - 32.0 pcg LAB HEMETOLOGY METHOD 01/11/2025 7:17 AM [facility] MCHC 32.0 32.0 - 37.0 g/dL LAB HEMETOLOGY METHOD 01/11/2025 7:17 AM [facility] RDW 12.6 11.0 - 15.0 % LAB HEMETOLOGY METHOD 01/11/2025 7:17 AM [facility] Platelets 279 130 - 400 K/mcL LAB HEMETOLOGY METHOD 01/11/2025 7:17 AM [facility] MPV 11.1(H) 7.0 - 11.0 FL LAB HEMETOLOGY METHOD 01/11/2025 7:17 AM EDT [facility] NRBC 0.2 <1.0 % LAB HEMETOLOGY METHOD 01/11/2025 7:17 AM EDT [facility] NRBC Absolute 0.02 <0.10 K/mcL LAB HEMETOLOGY METHOD 01/11/2025 7:17 AM EDT [facility] Blood Venous blood specimen / Unknown Venipuncture / Unknown 01/11/2025 6:19 AM EDT 01/11/2025 7:03 AM EDT Aretha ROSAS LAB BLOOD ORDERABLES Final Resu lt Performing Organization Address [facility]/ZIP Co de Phone Number [facility] [address] [place] [address], [place] [phone] * (ABNORMAL) Phosphorus (01/11/2025 6:19 AM EDT) Only the most recent of3 resultswithin the time period is included. Phosphorus 2.2(L) 2.5 - 4.5 mg/dL LAB CHEMISTRY METHOD 01/11/2025 9:58 AM EDT [facility] Blood Venous blood specimen / Unknown Venipuncture / Unknown 01/11/2025 6:19 AM EDT 01/11/2025 7:03 AM EDT Aretha ROSAS LAB BLOOD ORDERABLES Final Resu lt Performing Organization Address City/[facility]/ZIP Co de Phone Number [facility] [address] [place] [address], [place] [phone] * Amylase, body fluid (01/10/2025 9:59 AM EDT) Amylase, Fluid 76 See Comment unit/L LAB CHEMISTRY METHOD 01/10/2025 11:04 AM EDT [facility] Drainage 01/10/2025 9:59 AM EDT 01/10/2025 10:30 AM EDT Narrative [facility] - 01/10/2025 11:04 AM EDT No reference ranges have been established for body fluids. Clinical correlation recommended. Aretha ROSAS LAB BODY FLUIDS AND STOOLS ORDE RABLES Final Result Performing Organization Address [facility]/ZIP Co de Phone Number [facility] [address] [place] [address], * Amylase (01/10/2025 6:17 AM EDT) Amylase 28 25 - 115 unit/L LAB CHEMISTRY METHOD 01/10/2025 7:08 PM EDT [facility] Blood Venous blood specimen / Unknown Venipuncture / Unknown 01/10/2025 6:17 AM EDT 01/10/2025 7:09 AM EDT Aretha ROSAS LAB BLOOD ORDERABLES Final Resu lt Performing Organization Address [facility] Co de Phone Number [facility] [address] [place] [address], * (ABNORMAL) Creatinine serum (01/07/2025 6:20 PM EDT) Creatinine 1.11(H) 0.50 - 1.10 mg/dL LAB CHEMISTRY METHOD 01/07/2025 7:10 PM EDT [facility] eGFR 52(L) >=60 mL/min/1. 73m2 LAB CHEMISTRY METHOD 01/07/2025 7:10 PM EDT [facility] Comment:Calculation based on the Chronic Kidney Disease Epidemiology Collaboration (CKD-EPI) equation refit without adjustment for race. Blood Venous blood specimen / Unknown Venipuncture / Unknown 01/07/2025 6:20 PM EDT 01/07/2025 6:42 PM EDT Diogenes Medrano MD LAB BLOOD ORDERABLES Final Result [facility] [address] [place] [address], * (ABNORMAL) POCT Arterial basic metabolic profile, (01/07/2025 2:54 PM EDT) Only the most recent of2 resultswithin the time period is included. Glucose Arterial POCT 244(H) 70 - 100 mg/dL 01/07/2025 4:09 PM EDT [facility] Sodium Arterial POCT 140 135 - 145 mmol/L 01/07/2025 4:09 PM T [facility] Potassium Arterial POCT 4.1 3.5 - 5.5 mmol/L 01/07/2025 4:09 PM [facility] Chloride Arterial POCT 106 96 - 110 mmol/L 01/07/2025 4:09 PM [facility] TCO2 Arterial POCT 22 21 - 32 mmol/L 01/07/2025 4:09 PM [facility] BUN, Arterial POCT 13 5 - 25 mg/dL 01/07/2025 4:09 PM T [facility] Creatinine Arterial POCT 1.1 0.5 - 1.1 mg/dL 01/07/2025 4:09 PM T [facility] Ionized Calcium Arterial POCT 4.80 4.50 - 5.30 mg/dL 01/07/2025 4:09 PM [facility] Hemoglobin Arterial POCT 13.9 11.5 - 16.0 g/dL 01/07/2025 4:09 PM [facility] Hematocrit Arterial POCT 41 35 - 47 % 01/07/2025 4:09 PM [facility] Blood Arterial blood specimen / Unknown 01/07/2025 2:54 PM EDT 01/07/2025 4:10 PM EDT us Diogenes Medrano MD LAB POINT OF CARE TEST DOCKED DEVICE UNSOLICITED RESULTS Final Result [facility] [address] [place] [address], [place] [phone] * Tissue exam (01/07/2025 2:09 PM EDT) Addendum Estimated size of IPMN - 0.7 cm. Note: Estimated size of IPMN is based on IPMN present on two consecutive slide sections with average slide thickness of 0.35 cm. 1:09 PM EDT [facility] Addendum electronically signed by Aline Palacio MD on 01/12/2025 at 1:09 PM Final Diagnosis A. Pancreas, distal pancreatectomy and spleen: - Invasive moderately differentiated ductal adenocarcinoma. (See cancer synoptic report) - Tumor location: pancreatic tail. - Tumor size: 4.2 cm. - Tumor extent: tumor focally involves jcaiel-pancreatic adipose tissue. - Positive for lymphovascular and [...] addendum report will be issued. 1:09 PM EDT [facility] Gross Description A. Pancreas, distal [...] in greatest dimension. Gross photographs are taken. [employer] Architect sections are submitted as follows: 1, commercial drone pilot section mass (total formalin fixation time [...] node each, KELLY 5 1:09 PM EDT [facility] Intraoperative Consultation A. Pancreas, distal [...] Dr. Diogenes Medrano. 5 1:09 PM EDT [facility] Synoptic Checklist PANCREAS (EXOCRINE) PANCREAS (EXOCRINE): RESECTION - All Specimens 8th Edition - Protocol posted: 03/07/2022 SPECIMEN Procedure: Partial pancreatectomy, pancreatic tail TUMOR Tumor Site: Pancreatic tail Histologic Type: Ductal adenocarcinoma (NOS) Histologic Grade: G2, moderately differentiated Tumor Size: Greatest Dimension (Centimeters): 4.2 cm Site(s) Involved by Direct Tumor Extension: Peripancreatic soft tissues : Retroperitoneal soft tissue Treatment Effect: No known presurgical therapy Lymphovascular Invasion: Present Perineural Invasion: Present MARGINS Margin Status for Invasive Carcinoma: All margins negative for invasive carcinoma Closest Margin(s) to Invasive Carcinoma: Distal pancreatic parenchymal: estimated distance by adding frozen section thickness (0.3 cm) and 1.2 cm gross distance of tumor to parenchymal margin after frozen section. Distance from Invasive Carcinoma to Closest Margin: 1.5 cm Margin Status for Dysplasia and Intraepithelial Neoplasia: intraductal pancreatic mucinous neoplasma, low grade present at margin REGIONAL LYMPH NODES Regional Lymph Node Status: : All regional lymph nodes negative for tumor Number of Lymph Nodes Examined: 17 PATHOLOGIC STAGE CLASSIFICATION (pTNM, AJCC 8th Edition) Reporting of pT, pN, and (when applicable) pM categories is based on information available to the pathologist at the time the report is issued. As per the AJCC (Chapter 1, 8th Ed.) it is the managing physician's responsibility to establish the final pathologic stage based upon all pertinent information, including but potentially not limited to this pathology report. pT Category: pT3 pN Category: pN0 ADDITIONAL FINDINGS Additional Findings: Chronic pancreatitis Additional Findings: intraductal papillary mucinous neoplasm, low grade Quantitative IHC Biomarker Reporting (Added in Addendum) QUANTITATIVE IHC BIOMARKER REPORTING - A Protocol posted: 06/05/2023 SPECIMEN INFORMATION Case Identifier: [id number] Block Designation: A6 Anatomic Site: Distal pancreas Diagnosis: Adenocarcinoma Biomarker(s) Assessed: MMR IHC MMR IHC Results: Interpretation: No loss of nuclear expression of MMR proteins MMR Staining: Nuclear MLH1 staining: Intact Nuclear PMS2 staining: Intact Nuclear MSH2 staining: Intact Nuclear MSH6 staining: Intact MMR IHC Methods: Controls: Internal control cells present; expected immunoreactivity Controls: External controls available, expected immunoreactivity Assay Information: Laboratory-developed test Biomarker(s) Assessed: HER2 IHC HER2 IHC Results: Interpretation: Negative Scoring System: Breast Score: 0 HER2 IHC Methods: Antibody: SP3 Controls: External controls available, expected immunoreactivity Assay Information: Laboratory-developed test 1:09 PM EDT [facility] Disclaimer NOTE: The immunohistochemical tests and in situ hybridization tests were developed and their performance characteristics were determined by [facility]. They have not been cleared [...] 10% NB formalin fixed and paraffin embedded. 1:09 PM EDT [facility] Tissue Pancreatic structure / Unknown 01/07/2025 2:09 PM EDT 01/07/2025 2:19 PM EDT Diogenes Medrano MD LAB PATHOLOGY ORDERABLES E dited Result - Final [facility] [address] [place] [address], * TH AN ENDOTRACHEAL(NO CHARGE) (01/07/2025 11:39 AM EDT) Regine Renae CRNA - 01/07/2025 11:39 AM EDT Regine Jade CRNA 01/07/2025 11:41 AM General Information and Staff Patient location during procedure: OR Anesthesiologist: Johnathon Moses DO Resident/AMBULANCE ASSISTANT: Regine Jade CRNA Performed: resident/AMBULANCE ASSISTANT/CAA Performed by: Regine Jade CRNA Authorized by: Johnathon Moses DO Intubation Urgency: elective Final Airway Details Successful [...] 01/07/2025 11:40 AMStop Time: 01/07/2025 11:40 AM us Johnathon Moses DO ANESTHESIA ORDERABLES Final Res ult * TH AN ARTERIAL LINE (CHARGE) (01/07/2025 11:34 AM EDT) Johnathon Tejeda DO - 01/07/2025 11:34 AM EDT Johnathon Moses DO 01/07/2025 12:38 PM Arterial Line Performed by: Regine Jade CRNA Authorized by: Johnathon Moses DO Consent: Verbal consent obtained. Written consent obtained. Risks [...] to verify the correct patient, procedure, equipment, child support agent and site/side marked as required. Preparation: Patient [...] line done under sterile conditions with ultrasound. 1st attempt AMBULANCE ASSISTANT left radial artery with Ultrasound. No flash [...] 11:34 AM Staffing Anesthesiologist: Johnathon Moses DO Resident/AMBULANCE ASSISTANT: Regine Jade CRNA Johnathon Moses DO ANESTHESIA ORDERABLES Edited Re sult - Final * COLONOSCOPY Anesthesia - MAC; [facility] ENDOSCOPY (12/17/2024 10:44 AM EDT) Anatomical Region Laterality Modality Endoscopy 12/17/2024 10:2 8 AM EDT Impressions 12/17/2024 10:46 AM EDT - Patent gttz-wp-[id number] ileo-colonic anastomosis, characterized by healthy appearing mucosa. - Diverticulosis in the sigmoid colon. - Internal hemorrhoids. - The examination was otherwise normal. - No specimens collected. Recommendation: - Discharge patient to home. - Repeat colonoscopy in 5 years for surveillance. Narrative 12/17/2024 10:46 AM EDT GI Patient Name: Corin Alvarenga Procedure Date: 12/17/2024 10:28 AM Date of : 1950 Age: 74 Gender: Female Note Status: Finalized Attending MD: Valente Camarena MD, Procedure Date No Time: 12/17/2024 Procedure: Colonoscopy Indications: High risk colon cancer surveillance: Personal history of colon cancer Providers: Valente Camarena MD Referring MD: Valente Camarena MD Medicines: Monitored Anesthesia Care Complications: No immediate complications. Estimated Blood Loss: Estimated blood loss: none. Procedure: Pre-Anesthesia Assessment: - Prior to the procedure, a History and Physical was performed, and patient medications and allergies were reviewed. The patient is competent. The risks and benefits of the procedure and the sedation options and risks were discussed with the patient. All questions were answered and informed consent was obtained. Patient identification and proposed procedure were verified by the physician, the nurse, the composite technician and the natural gas technician in the pre-procedure area in the endoscopy suite. Mental Status Examination: alert and oriented. Airway Examination: normal oropharyngeal airway and neck mobility. Respiratory Examination: clear to auscultation. CV Examination: normal. Prophylactic Antibiotics: The patient does not require prophylactic antibiotics. Prior Anticoagulants: The patient has taken no anticoagulant or antiplatelet agents. ASA Grade Assessment: III - A patient with severe systemic disease. After reviewing the risks and benefits, the patient was deemed in satisfactory condition to undergo the procedure. The anesthesia plan was to use monitored anesthesia care (MAC). Immediately prior to administration of medications, the patient was re-assessed for adequacy to receive sedatives. The heart rate, respiratory rate, oxygen saturations, blood pressure, adequacy of pulmonary ventilation, and response to care were monitored throughout the procedure. The physical status of the patient was re-assessed after the procedure. After I obtained informed consent, the scope was passed under direct vision. Throughout the procedure, the patient's blood pressure, pulse, and oxygen saturations were monitored continuously. The Colonoscope was introduced through the anus and advanced to the ileocolonic anastomosis. The colonoscopy was performed without difficulty. The patient tolerated the procedure well. The quality of the bowel preparation was good. Findings: The perianal and digital rectal examinations were normal. There was evidence of a prior qgyi-wo-fups ileo-colonic anastomosis in the ascending colon. This was patent and was characterized by healthy appearing mucosa. Scattered small-mouthed diverticula were found in the sigmoid colon. Internal hemorrhoids were found during retroflexion. The hemorrhoids were Grade I (internal hemorrhoids that do not prolapse). The exam was otherwise without abnormality. Procedure Code(s): --- Professional --- G0105, Colorectal cancer screening; colonoscopy on individual at high risk Diagnosis Code(s): --- Professional --- Z85.038, Personal history of other malignant neoplasm of large intestine CPT copyright 2020 [employer]. All rights reserved. The codes documented in this report are preliminary and upon tip puncher review may be revised to meet current compliance requirements. Valente Camarena MD 12/17/2024 10:46:21 AM This report has been signed electronically.Valente Camarena MD Number of Addenda: 0 Note Initiated On: 12/17/2024 10:28 AM Scope Withdrawal Time: 0 hours 6 minutes 55 seconds Scope In: 10:35:31 AM Scope Out: 10:45:39 AM Endoscopy Department at - [address] [place] [phone] Procedure Note Valente Camarena MD - 12/17/2024 GI Patient Name: Corin Alvarenga Procedure Date: [...] the physician, the nurse, theanesthetist and the natural gas technician in the pre-procedure area in the [...] normal. There was evidence of a prior jakz-ae-qrky ileo-colonic anastomosis in the ascending colon.This was [...] malignantneoplasm of large intestine CPT copyright 2020 [employer]. All rights reserved. The codes documented in this report are preliminary and upon tip puncher reviewmay be revised to meet current compliance requirements. Valente Camarena MD 12/17/2024 10:46:21 AM This report has been signed electronically.Valente Camarena MD Number of Addenda: 0 Note Initiated On: 12/17/2024 10:28 AM Scope Withdrawal Time: 0 hours 6 minutes 55 seconds Scope In: 10:35:31 AM Scope Out: 10:45:39 AM Endoscopy Department at - [address] [place] [phone] IMPRESSION: - Patent ewqs-yd-bfhi ileo-colonic anastomosis, characterized by healthy appearing mucosa. - Diverticulosis in the sigmoid colon. - Internal hemorrhoids. - The examination was otherwise normal. - No specimens collected. Recommendation: - Discharge patient to home. - Repeat colonoscopy in 5 years for surveillance. Valente Camarena MD GI~PROCEDURE ORDERABLES Fin al Result from Last 3 Months or Most Recently Relevant to Health Maintenance Insurance [employer] MEDICARE Advance Directives * [...] currently active code status orders. Care Teams Senior Escrow Officer Relationship Specialty Start Date End Date Jung Carranza MD [address] [place] [address] [address] [place] PCP - General Internal Medicine 12/08/18
== END 2025-03-30 14:38 | disposition home or self-care (01) ==
LOC: HO.ENCR 13:55
PROVIDERS: PCP Internal Medicine; Visit Provider Physician Assistant Medical
DX: E11.21 Type 2 diabetes mellitus with diabetic nephropathy (principal)

== ENCOUNTER → 2025-03-30 13:54 | Outpatient (BNVA) | payer OTHER, SELFPAY | PROVIDERS: PCP Internal Medicine; Visit Provider Physician Assistant Medical | DX: E11.21 Type 2 diabetes mellitus with diabetic nephropathy (principal) | CPT/HCPCS: 82947 ==

== ENCOUNTER → 2025-04-19 15:50 | Outpatient (AMB) | payer OTHER, SELFPAY ==
--- OUTSIDE RECORDS SUMMARY | 2025-04-15 11:23 | XMS_ITS | Encounter Summary ---
Author Organization [facility] [place] [address] Care Team Providers Care Automotive Tire Technician Name Role Phone Jung Carranza MD Primary Care Provider [phone] Encounter Details Date Type Department Care Team (Latest Contact Info) Description 04/15/2025 11:23 AM EDT - 04/15/2025 11:59 PM EDT Hospital Encounter [facility] [address] [address] Carmen Felix MD [address] [place] [address] Malignant neoplasm of tail of pancreas (CMS/HCC V24, CMS/HCC V28) (Primary Dx) Discharge Disposition: Home or Self Care Social [...] Orientation Straight 12/17/2024 8: 34 AM EDT documented as of this encounter Last Filed Vital Signs Vital Sign Reading Time Taken Comments Blood Pressure 109/56 04/15/2025 11:33 AM EDT Pulse 80 04/15/2025 11:33 AM EDT Temperature 36.7 C (98.1 F) 04/15/2025 11:33 AM EDT Respiratory Rate - - Oxygen Saturation 98% 04/15/2025 11:33 AM EDT Inhaled Oxygen Concentration - - Weight - - Height - - Body Mass Index - - documented in this encounter Functional Status * Are you deaf or do you have serious difficulty hearing? Answer Date of Assessment Author No 01/19/2025 3:44 AM Alannah Sahni RN * Are you blind or do you have serious difficulty seeing, even when wearing glasses? Answer Date of Assessment Author No 01/19/2025 3:44 AM Alannah Shani RN * Do you have serious difficulty walking or climbing stairs? Answer Date of Assessment Author No 01/19/2025 3:44 AM Alannah Sahni RN * Do you have serious difficulty dressing or bathing? Answer Date of Assessment Author No 01/19/2025 3:44 AM Alannah Sahni RN * Because of a physical, mental, or emotional condition, do you have serious difficulty doing errandsalone such as visiting the doctor? Answer Date of Assessment Author No 01/19/2025 3:44 AM Alannah Sahni RN documented as of this encounter Mental Status * Because of a physical, mental, or emotional condition, do you have serious difficulty concentrating, remembering, or making decisions? (5 years old or older) Answer Entry Date Author No 01/19/2025 3:44 AM Alannah Sahni RN documented in this encounter Medications at Time of Discharge albuterol HFA (PROAIR HFA ; PROVENTIL HFA ; VENTOLIN HFA) 90 mcg/actuation inhaler Inhale 2 puffs by mouth every 4 (four) hours if needed. budesonide-glycopyr -formoterol (Breztri Aerosphere) 160-9-4.8 mcg/actuation HFA aerosol inhaler inhaler Inhale 2 puffs by mouth 2 (two) times a day. calcium carbonate/vitamin D3 (CALCIUM + D ORAL) Take by mouth. cetirizine (ZyrTEC) 10 mg capsule 1 (one) time each day. clopidogreL (PLAVIX) 75 mg tablet Take 1 tablet (75 mg total) by mouth 1 (one) time each day. 04/12/2024 dexAMETHasone (DECADRON) 4 mg tabletIndications:M alignant neoplasm of tail of pancreas (CMS/HCC V24, CMS/HCC V28) Take 8 mg (2 tablets) once daily, starting the day after treatment, for two days. Take in the morning with food. 30 tablet 1 04/05/2025 ezetimibe (ZETIA) 10 mg tablet Route: Take 10 mg by mouth daily. - Oral 05/04/2024 gabapentin (NEURONTIN) 300 mg capsule Take 1 capsule (300 mg total) by mouth if needed. insulin lispro (HumaLOG KwikPen) 100 unit/mL injection [...] than 400, administer 6 units 15 mL 01/11/2025 loperamide (IMODIUM A-D) 2 mg tabletIndications:d iarrhea secondary to inflammatory bowel disease Take 1 tablet (2 mg total) by mouth 1 (one) time. Suggested by gastroenterolog ist-per patient for diarrhea. IBS LORazepam (ATIVAN) 0.5 mg tablet - Route: Take 0.5 mg by mouth every 6 hours as needed. - Oral 06/13/2024 multivitamin (MULTIPLE VITAMINS ORAL) Take by mouth. nystatin (Nyamyc) 100,000 unit/gram powder APPLY TO THE AFFECTED AREAS IN THE BREAST TWICE DAILY MAINTENANCE. 11/14/2022 ondansetron (ZOFRAN) 8 mg tabletIndications:G astroesophageal reflux disease without esophagitis,H/O: lung cancer,H/O malignant neoplasm of colon,History of acute anterior wall myocardial infarction,Diabetes 1.5, managed as type 2 (CMS/HCC V24, CMS/HCC V28),Hernia of abdominal wall,Epigastric pressure,Hiatal hernia Take 1 tablet (8 mg total) by mouth 3 (three) times a day if needed for nausea or vomiting. 60 tablet 6 10/29/2024 ondansetron ODT (ZOFRAN-ODT) 8 mg disintegrating tabletIndications:M alignant neoplasm of tail of pancreas (CMS/HCC V24, CMS/HCC V28) Dissolve 1 tablet (8 mg total) on top of the tongue every 8 (eight) hours if needed for nausea or vomiting. 20 tablet 11 03/29/2025 5 pen needle, diabetic (BD Ultra-Fine Short Pen Needle) 31 gauge x 5/16 needle 1 each 4 (four) times a day (before meals and nightly). 120 each 01/12/2025 prochlorperazine (COMPAZINE) 10 mg tablet Take 1 tablet (10 mg total) by mouth every 6 (six) hours if needed for vomiting or nausea. 60 tablet 3 03/29/2025 5 prochlorperazine (COMPAZINE) 10 mg tabletIndications:M alignant neoplasm of tail of pancreas (CMS/HCC V24, CMS/HCC V28) Take 1 tablet (10 mg total) by mouth every 6 (six) hours if needed for nausea or vomiting. 60 tablet 3 04/05/2025 rosuvastatin (CRESTOR) 40 mg tablet 11/04/2024 Trintellix 10 mg tablet 11/04/2024 documented as of this encounter Discharge Disposition Disposition Code Departure Means Destination Home or Self Care documented in this encounter Progress Notes * Sunshine Kimbrough RN - 04/15/2025 11:30 AM EDTEncounter addended by: Sunshine Kimbrough RN on: 04/16/2025 3:34 PM Actions taken: Clinical Note Signed, Flowsheet accepted * Sunshine Kimbrough RN - 04/15/2025 11:30 AM EDTEncounter addended by: Sunshine Kimbrough RN on: 04/16/2025 3:37 PM Actions taken: Flowsheet accepted * Sunshine Kimbrough RN - 04/15/2025 11:30 AM EDT Pt arrives for hydration . Pt assessed and reports she has been feeling pretty well . I'm a little tired but I do get my rest . When asked about her fluid intake pt states I drink about 3 bottles a day but I do drink a lot of cups of coffee , Its decaffinated . Pt and this nurse discussed pt adding other drinks to her day including estefania ameya , seltzer water . Pt verbalized understanding . Pt given estefania ameya while in unit. Kemi cath accessed and NS hung over 1 hour. Call milner in reach . Hydration infused without issue. Pt reports needing to urinate . Pt ambulated to the bathroom - gait steady. Upon pts return , kemi cath flushed and deaccessed. Pt aware of appointment on Saturday for treatment . Pt discharged with steady gait. documented in this encounter Plan of Treatment Upcoming Encounters Date Type Department Care Team (Late st Contact Info) Description 04/20/2025 8:30 AM EDT Appointment [facility] [address] [facility] 2nd [place] [phone] 04/26/2025 3:15 PM EDT Office Visit [facility] Oncology [address] [place] [phone] Carmen Felix MD [address] [place] [phone] 05/19/2025 9:45 AM EDT Office Visit General Surgery [facility] [address] [phone] Diogenes Medrano MD [address] [phone] documented as of this encounter Visit Diagnoses Diagnosis Malignant neoplasm of tail of pancreas (CMS/HCC V24, CMS/HCC V28)- Primary Malignant neoplasm of tail of pancreas documented in this encounter Administered Medications Inactive Administered Medications - up to 3 most recent administrations Medication Order MAR Action Action Date Dose Rate Site sodium chloride 0.9 % bolus 1,000 mL 1,000 mL, intravenous, at 1,000 mL/hr, Administer over 1 Hours, Once, On Krystle 04/15/25 at 1230, For 1 doseIndications:Malignant neoplasm of tail of pancreas (CMS/HCC V24, CMS/HCC V28) New Bag 04/15/2025 12:04 PM EDT 1,000 mL 1000 mL/hr documented in this encounter Orders Medications Ordered That Francois ht Not Have Been Administered Count Last Ordered Date First Ordered Date sodium chloride 0.9 % bolus 1,000 mL 1 03/18 documented in this encounter Care Teams Automotive Tire Technician Relationship Specialty Start Date End Date Jung Carranza MD [address] [place] [address] [address] [place], [place] PCP - General Internal Medicine 12/08/18 documented as of this encounter
--- OUTSIDE RECORDS SUMMARY | 2025-04-19 15:53 | XMS_ITS | Encounter Summary ---
Author Organization [facility] Address [address] [place] [address] Phone Care Team Providers Care Regulatory Assistant Name Role Phone Evangelist Gabriel MD Unavailable [phone] Vignesh Farias MD Unavailable [phone] Dixon Quiñones NP Unavailable [phone] Hong Maddox MD Unavailable [phone] Kym Carranza MD Primary Care Provide r Self-Referred, Patient Unavailable Unavailab Pravin Leung MD Unavailable [phone] Johana Amador MD Unavailable [phone] Johana Amador MD Primary Care Provid er Kym Carranza MD Primary Care Provide r Carmen Felix MD Unavailable [phone] Encounter Details Date Type Department Care Team (Late st Contact Info) Description 12/20/2020 Procedure Pass [facility] Periop [address] [place], [place] [id number] Social History Tobacco Use Types Packs/Day Years Used Date Smoking Tobacco: Former Cigarettes Q uit: 06/04/2004 Smokeless Tobacco: Never Alcohol Use Standard Drinks/Week Comments No 0 (1 standard drink = 0.6 oz pur e alcohol) Comments Unknown Sex and Gender Information Value Date Recorded Sex Assigned at Female 01/02/2022 1:38 PM EDT Legal Sex Female 10:02 PM EDT Gender Identity Female 01/02/2022 1:38 PM EDT Sexual Orientation Not on file documented as of this encounter Functional Status * Calculated C-SSRS Risk Score (Lifetime/Recent) Answer Date of Assessment Author No Risk Indicated 12/20/2020 7:00 PM EDT Derrick Palacio RN * [place] Suicide Severity Rating Scale (Screener/Recent Self-Report) Question Answer Date of Assessment Author 1. Wish to be (Past 1 Month) No 021 7:00 PM EDT Clemente Palacio, SHAWN 2. Non-Specific Active Suici tess Thoughts (Past 1 Month) No 12/20/2020 7:00 PM EDT Clemente Palacio RN 6. Suicidal Behavior (Lifetime) No 7:00 PM EDT Clemente Palacio, SHAWN documented as of this encounter Plan of Treatment Upcoming Encounters Date Type Department Care Team (Late st Contact Info) Description 12/29/2024 Procedure Pass [facility] [address] [place] [address] 06/14/2025 12:30 PM EDT Appointment [facility] [address] [place] [address] Prince Freitas MD [address] [place] [phone] 06/28/2025 1:40 PM EDT Office Visit [facility] [address] [place] [address] [address]rd Floor, [address] [address] Prince Freitas MD [address] [place] [phone] documented as of this encounter Visit Diagnoses Not on filedocumented in this encounter Care Teams Regulatory Assistant Relationship Specialty Start Date End Date Kym Carranza MD [address] [place] [address] [place] [phone] PCP - General Internal Medicine 11/28/20 05/04/21 Johana Amador MD [address] [place] [phone] PCP - General Gastroenterology 05/05/21 12/21/21 Kym Carranza MD [address] [place] [phone] PCP - General Internal Medicine 12/22/21 Evangelist Gabriel MD [address] [place] [phone] [email or web address] Historical LMR Provider 07/04/17 09/23/21 Vignesh Farias MD [address] [place] [phone] [email or web address] Historical LMR Provider 07/04/17 09/23/21 Dixon Quiñones NP [address] [place] [phone] Historical LMR Provider 07/04/17 2 Hong Maddox MD [address] [place] [address] [email or web address] Historical LMR Provider 07/04/17 Self-Referred, Patient Referring Physician 11/28/20 Pravin Landis MD [address] [place] [phone] [email or web address] Primary Oncologist Medical Oncology 02/08/21 Johana Amador MD [address] [address] Referring Physician Gastroenterology 03/27/21 Carmen Felix MD [address] [place] [phone] [email or web address] Oncology 03/11/24 documented as of this encounter Additional Source Comments The information contained in this document represents components of the legal health record. It is not the complete legal health record.[facility]
--- OUTSIDE RECORDS SUMMARY | 2025-04-19 15:53 | XMS_ITS | Clinical Summary ---
Author Organization [facility] Address [address] [place] [address] Care Team Providers Care Director Hr Communications Name Role Phone Jung Carranza MD Primary Care Provider [phone] Allergies Active Allergy Reactions Criticality Noted Date [...] to complete this topic Care Teams Director Hr Communications Relationship Specialty Start Date End Date Bashiruddin, Jung, MD [address] [facility] [address] [place] [address] PCP - General Internal Medicine 02/12/24
--- NOTE | 2025-04-19 16:18 | A.OFFVIS_ITS ---
Intake Intake Visit Reasons: 60 mins Lead Cargoman Required: No Accompanied by: Self / Same As Patient Allergies latex Allergy (Severe, Verified 03/30/25 14:05) Swelling levofloxacin (Levaquin) Allergy (Severe, Verified 03/30/25 14:05) Swelling Aspirin Allergy (Severe, Uncoded 03/30/25 14:05) Swelling PFSH Medical History Pancreatic cancer CHF (congestive heart failure) Renal insufficiency Peripheral sensory neuropathy due to type 2 diabetes mellitus Type II diabetes mellitus History of transfusion of packed red blood cells Migraine History of placement of stent in LAD coronary artery Osteoporosis Hyperlipidemia Depression CAD (coronary artery disease) Sleep apnea On anticoagulant therapy TIA (transient ischemic attack) Myocardial infarction Obesity Diabetes Dyslipidemia History of colon cancer HTN (hypertension) Carotid stenosis, asymptomatic GERD (gastroesophageal reflux disease) Colon cancer Pre-op chest exam Lung cancer Pulmonary nodules Dyspnea COPD (chronic obstructive pulmonary disease) Pulmonary nodule Surgical History History of surgery History of incisional hernia repair (07/06/24) Hx of tonsillectomy Hx of tubal ligation History of dental surgery Hx of cardiac catheterization History of lobectomy of lung Family History Mother Stroke Diabetes Father Alcoholic cirrhosis of liver Social History Household Members: None Housing: House Are you a primary home care specialist to a significant other at home: No Do you presently have visiting nurse or other home services: No Patient Tobacco Use Status: Former Tobacco user Tobacco use type: Cigarette Years Smoked: 20+ Years Second Hand Smoke Exposure: No service: No Assessment & Plan Assessment & Plan (1) Type II diabetes mellitus: Code(s): E11.9 - Type 2 diabetes mellitus without complications Qualifiers: Diabetes mellitus penitentiary insulin use: without penitentiary use Diabetes mellitus complication status: with kidney complications Diabetes mellitus complication detail: with nephropathy Qualified Code(s): E11.21 - Type 2 diabetes mellitus with diabetic nephropathy Plan: Patient at visit to set up an insert Dexcom G7 with raad Instructed patient sensors water proof you can shower, or swim do not submerge sensor in water for over 30 minutes Is sensor falls off cannot put back in you need to replace sensor, customer service number given to patient for sensor replacement Sensor placed on the back of left arm Pt glucose was 254 mg/dL after warm up Reviewed how to interpret trend arrows Discussed lag time between finger stick and sensor data.? Instructed patient the importance of having blood glucometer for backup testing if needed Reviewed delay of CGM from fingersticks Reminded Pt that if symptoms do not match sensor still needs to check fingersticks. Portions of this note were created using voice recognition software, please excuse any words or phrases that may have been misinterpreted. Patient Instructions: Patient instruction: CGM provides information on blood glucose control throughout the day, including hyperglycemia and hypoglycemia. ? Continue to monitor blood glucose as instructed. Follow nutrition guidelines provided. Report any discomfort promptly to health care provider. ?Stay well-hydrated. You can bathe ,shower, swim and exercise while wearing the glucose sensor. Do not submerge glucose sensor in water for more than 30 minutes. Coding Level of Care Code Est Pt Level 1 (16117) Diagnoses Type 2 diabetes mellitus with diabetic nephropathy, without long-term current use of insulin E11.21 Diabetes mellitus technician terminal and repeater insulin use: without technician terminal and repeater use Diabetes mellitus complication status: with kidney complications Diabetes mellitus complication detail: with nephropathy
== END ==
LOC: HO.ENCR 15:51
PROVIDERS: PCP Internal Medicine; Visit Provider Registered Nurse Diabetes Educator
DX: E11.21 Type 2 diabetes mellitus with diabetic nephropathy (principal)
CPT/HCPCS: 99211

== ENCOUNTER 2025-06-01 14:26 | Outpatient (AMB) | payer OTHER, SELFPAY ==
--- OUTSIDE RECORDS SUMMARY | 2025-05-27 12:58 | XMS_ITS | Encounter Summary ---
Author Organization [facility] [place] [address] Care Team Providers Care Camera Control Operator Name Role Phone Jung Carranza MD Primary Care Provider [phone] Encounter Details Date Type Department Care Team (Latest Contact Info) Description 05/27/2025 12:58 PM EDT - 05/27/2025 11:59 PM EDT Hospital Encounter [facility] [address] [phone] Carmen Felix MD [address] [place] [address] Malignant neoplasm of tail of [...] AM EDT documented as of this encounter Functional Status * Are you [...] 120 each 01/12/2025 prochlorperazine (COMPAZINE) 10 mg tabletIndications:M alignant neoplasm of tail of pancreas (CMS/HCC V24, CMS/HCC V28) Take 1 tablet (10 mg total) by mouth every 6 (six) hours if needed for nausea or vomiting. 60 tablet 3 04/05/2025 rosuvastatin (CRESTOR) 40 mg tablet 11/04/2024 Trintellix 10 mg tablet 11/04/2024 prochlorperazine (COMPAZINE) 10 mg tablet Take 1 tablet (10 mg total) by mouth every 6 (six) hours if needed for vomiting or nausea. 60 tablet 3 03/29/2025 5 documented as of this encounter Discharge Disposition Disposition Code Departure Means Destination Home or Self Care documented in this encounter Progress Notes * Christine García RN - 05/27/2025 1:00 PM EDT Patient arrives for pump takedown ambulatory and in good spirits. She has no acute complaints and states everything went well. Port flushed with 2 10ml ns flushes, + brisk blood return. Patient got 100% of 5fu. Patient left stable and ambulatory, instructed to call with any questions or concerns. documented in this encounter Plan of Treatment Upcoming Encounters Date Type Department Care Team (Late st Contact Info) Description 06/07/2025 9:30 AM EDT Appointment [facility] [address] [place] [phone] 06/08/2025 8:00 AM EDT Appointment [facility] [address] [place] [phone] 06/21/2025 11:45 AM EDT Office Visit [facility] [address] [place] [phone] Carmen Felix MD [address] [place] [phone] documented as of this encounter Visit Diagnoses Diagnosis Malignant neoplasm of tail of pancreas (CMS/HCC V24, CMS/HCC V28)- Primary Malignant neoplasm of tail of pancreas documented in this encounter Care Teams Camera Control Operator Relationship Specialty Start Date End Date Jung Carranza MD [address] [place] [address] Rd [address] [place], [place] PCP - General Internal Medicine 12/08/18 documented as of this encounter
--- NOTE | 2025-06-01 14:27 | A.OFFVIS_ITS ---
Vital Signs 06/01/25 14:30 Height 5 ft 4 in Weight 149 lb 14.629 oz BMI 25.7 BP 104/64 Blood Pressure Location Lt brachial Position Sitting Pulse 66 Pulse Oximetry (%) 98 Oxygen Delivery Method Room Air Intake Visit Reasons: T2DM Intake Note: Patient present today to follow up on Type 2 Diabetes Mellitus. Last Diabetic Eye exam: Within the year Last Podiatry Visit: Does not see a Condominium Property Manager Random Glucose: 289 mg/dL HgA1C: 9.0%, 06/01/2025 Batcher Operator Required: No Accompanied by: Self / Same As Patient Allergies latex Allergy (Severe, Verified 03/30/25 14:05) Swelling levofloxacin (Levaquin) Allergy (Severe, Verified 03/30/25 14:05) Swelling Aspirin Allergy (Severe, Uncoded 03/30/25 14:05) Swelling Medication List - Last Reconciled 06/01/25 by RALPH Ng acetaminophen-codeine 300-30 mg 1 tab PO BID PRN 10 days acetone (urine) test (Ketone Urine Test strips) As directed albuterol sulfate 90 mcg/actuation 2 inhalations inhalation Q6H PRN 30 days blood sugar diagnostic (OneTouch Ultra Test strips) USE DIRECTED TO TEST 3 TIMES DAILY blood-glucose meter (OneTouch Ultra2 Meter) As directed checks 3X/day blood-glucose sensor ([employer] G7 Sensor device) apply new sensor every 10 days as directed blood-glucose,education department registrar,cont (Dexcom G7 Laboratory Equipment Installer) As directed to monitor blood continuously bcpaxiqmld-usmyomsi-oojizniimi 160-9-4.8 mcg/actuation (Breztri Aerosphere) 2 inhalations inhalation BID 30 days calcium carbonate-vitamin D3 600 mg-5 mcg (200 unit) 1 tab PO DAILY cetirizine (Zyrtec) 10 mg PO BID PRN cholecalciferol (vitamin D3) (Vitamin D3) 50 mcg PO DAILY clopidogrel 75 mg PO QPM ezetimibe 10 mg PO DAILY famotidine (Pepcid) 40 mg PO BEDTIME PRN gabapentin 300 mg PO DAILY PRN glucose (Dex4 Glucose) 16 grams (4 x 4 gram) PO Q15M PRN insulin degludec (Tresiba FlexTouch U-200 insulin) 14 units subcut BEDTIME insulin lispro For breakfast: <120 0 units 121-150 4 units 151-200 8 unit 201- 250 10 units 251-300 12 units 301-350 14 units 351-400 16 units >400 18 units and call the office. For lunch and dinner: <120 0 units 121-150 7 units 151-200 11 unit 201-250 13 units 251-300 15 units 301-350 17 units 351-400 19 units >400 20 units and call the office lancets (ScriptRockTouch Delica Plus Lancet) Use as directed to check blood glucose four daily. loperamide (Imodium A-D) 2 mg PO BID lorazepam 0.5 mg PO BID PRN multivitamin 1 tab PO DAILY nitroglycerin 0.4 mg sublingual DIRECTED PRN nystatin (Nyamyc) 1 appl topical BID pen needle, diabetic As directed 4 times daily rosuvastatin 40 mg PO BEDTIME vortioxetine 10 mg PO BEDTIME zolpidem (Ambien) 10 mg PO BEDTIME 30 days HPI Comments Details: This is a 75-year-old female with a past medical history of type 2 diabetes, CHF, CAD, hiatal hernia with GERD, lung cancer, stage II adenocarcinoma of the colon, carotid artery stenosis, COPD, pulmonary nodules and recently diagnosed pancreatic cancer s/p tumor resection and splenectomy in December presenting for diabetic management. She was diagnosed with diabetes 4.5 years ago. Her mother had type 2 diabetes. Surgeon -Dr. Medrano Oncologist- Dr. Ray. Patient says she had pancreatic mass resected and spleen removed on 01/07/2025 at [facility]. She is on chemotherapy every other week and receives a steroid infusion with chemo. Hemoglobin A1c 9.0% today 06/01/25. I reviewed the patient's Dexcom data GMI 9.4% Average glucose 256 51% very high 30% high 19% in range 0% hypoglycemia She has a pattern of postprandial hyperglycemia and nocturnal hyperglycemia. She had 1 occasion when Dexcom alerted her to low and read 40, but fingerstick was 206. Current medication regimen: Tresiba to 12 units nighlty Sliding scale lispro and administer 15 minutes before meals: <120 0 units 121-150 4 units 151-200 8 unit 201-250 10 units 251-300 12 units 301-350 14 units 351-400 16 units >400 18 units and call the office Past medications: Mounjaro was discontinued due to risk of pancreatitis. Rybelsus was discontinued due to abdominal pain in the past. She never tried metformin because she was concerned about potential side effects due to chronic diarrhea. Jardiance discontinued due to yeast infections. Hypoglycemia symptoms: none Hyperglycemia symptoms: fatigue Eye exam: [facility], no complications per patient last exam Microvascular complications: neuropathy, nephropathy (renal insufficiency) Macrovascular complications: CAD and PAD (Dr. Freitas) ROS: Constitutional: Interval weight gain. No weight loss. Denies fevers and chills. Respiratory: No shortness of breath Cardiovascular: No chest pain Neurologic: No headache, dizziness, syncope Endocrine: see HPI Physical exam: Constitutional: Alert, in no distress. Neck: Supple, Full range of motion. No lymphadenopathy. No palpable thyroid masses. Respiratory: Clear to auscultation. Cardiovascular: S1 S2 regular. No murmurs. Psychiatric: Normal affect [facility] Medical History Pancreatic cancer CHF (congestive heart failure) Renal insufficiency Peripheral sensory neuropathy due to type 2 diabetes mellitus Type II diabetes mellitus History of transfusion of packed red blood cells Migraine History of placement of stent in LAD coronary artery Osteoporosis Hyperlipidemia Depression CAD (coronary artery disease) Sleep apnea On anticoagulant therapy TIA (transient ischemic attack) Myocardial infarction Obesity Diabetes Dyslipidemia History of colon cancer HTN (hypertension) Carotid stenosis, asymptomatic GERD (gastroesophageal reflux disease) Colon cancer Pre-op chest exam Lung cancer Pulmonary nodules Dyspnea COPD (chronic obstructive pulmonary disease) Pulmonary nodule Surgical History History of surgery History of incisional hernia repair (07/06/24) Hx of tonsillectomy Hx of tubal ligation History of dental surgery Hx of cardiac catheterization History of lobectomy of lung Family History Mother Stroke Diabetes Father Alcoholic cirrhosis of liver Social History Household Members: None Housing: House Are you a primary housekeeper child care to a significant other at home: No Do you presently have visiting nurse or other home services: No Patient Tobacco Use Status: Former Tobacco user Tobacco use type: Cigarette Years Smoked: 20+ Years Second Hand Smoke Exposure: No service: No Physical Exam Vital Signs: Last Vital Signs Pulse 66 06/01/25 14:30 BP 104/64 06/01/25 14:30 Pulse Ox 98 06/01/25 14:30 Oxygen Delivery Method Room Air 06/01/25 14:30 BMI result Body Mass Index 25.7 Office Procedures Glucose Monitoring Details Details: see HPI 65137 - Glucose monitoring, continuous-physician I&R Procedure code (CPT) selection complete Results AMB Hemoglobin A1c AMB Hemoglobin A1c 9.0 % Last Edit by SHIRA Jay on 06/01/25 14:44 Results Reviewed Results Reviewed: Laboratory Last Values Glucose (Clinic) 286 mg/dL (60-115) H 06/01/25 14:35 Hgb A1c (Clinic) 9.0 % (4.0-6.0) H 06/01/25 14:39 Laboratory Tests 05/06/24 05/13/24 23:31 11:56 Plt Count 241 Creatinine 1.13 1.10 Estimated GFR 47 49 AST 17 ALT 21 Laboratory Tests 01/26/25 02/16/25 13:14 10:48 Creatinine 1.16 Estimated GFR 46 Hgb A1c (Clinic) 9.1 H C-Peptide 5.09 H Triglycerides 159 H Cholesterol 136 LDL Cholesterol, Calc 58 HDL Cholesterol 47 TSH 2.51 Assessment & Plan Assessment & Plan (1) Type II diabetes mellitus: Code(s): E11.9 - Type 2 diabetes mellitus without complications Category: Medical Qualifiers: Diabetes mellitus complication detail: with nephropathy Diabetes mellitus complication status: with kidney complications Diabetes mellitus terminal superintendent insulin use: without longterm use Qualified Code(s): E11.21 - Type 2 diabetes mellitus with diabetic nephropathy Plan In summary this is a 74-year-old female with type 2 diabetes with micro and macrovascular complications and pancreatic cancer who underwent tumor resection and splenectomy and is currently on chemotherapy. Reasonable goal for hemoglobin A1c is 7.5-8% given medical history. Remain off GLP 1 due to risk of pancreatitis. Increase Tresiba to 14 units nighlty Sliding scale lispro and administer 15 minutes before meals: For breakfast: <120 0 units 121-150 4 units 151-200 8 unit 201-250 10 units 251-300 12 units 301-350 14 units 351-400 16 units >400 18 units and call the office For lunch and dinner: <120 0 units 121-150 7 units 151-200 11 unit 201-250 13 units 251-300 15 units 301-350 17 units 351-400 19 units >400 20 units and call the office If you experience low blood sugar (under 70), treat this by eating a chewable fruit candy like skittles or jelly beans (about 8 pieces), 4 ounces (1/2 cup) of fruit juice (not diet), 1 tablespoon of honey or 4 glucose tablets. If your blood sugar is under 50, take double the amount of one of the above. Follow up in 6 weeks for Type II diabetes or sooner if needed. She signed a release for her labs from [facility] today. Orders: Orders AMB Glucose Monitoring Today E11.9 - Type 2 diabetes mellitus without complications AMB Hemoglobin A1c Today E11.21 - Type 2 diabetes mellitus with diabetic nephropathy Medications: Changed From insulin lispro For breakfast: <120 0 units 121-150 4 units 151-200 8 unit 201-250 10 units 251-300 12 units 301-350 14 units 351-400 16 units >400 18 units and call the office. For lunch and dinner: <120 0 units 121-150 7 units 151-200 11 unit 201-250 13 units 251-300 15 units 301-350 17 units 351-400 19 units >400 20 units and call the office To insulin lispro For breakfast: <120 0 units 121-150 4 units 151-200 8 unit 201-250 10 units 251-300 12 units 301-350 14 units 351-400 16 units >400 18 units and call the office. For lunch and dinner: <120 0 units 121-150 7 units 151-200 11 unit 201-250 13 units 251-300 15 units 301-350 17 units 351-400 19 units >400 20 units and call the office 15 mL 5RF From Tresiba FlexTouch U-200 (insulin degludec) 12 units (0.06 mL) subcut BEDTIME 9 mL 5RF NS To insulin degludec (Tresiba FlexTouch U-200 insulin) 14 units subcut BEDTIME Patient Instructions: Medication regimen as of today: Increase Tresiba to 14 units nighlty Sliding scale lispro and administer 15 minutes before meals: For breakfast: <120 0 units 121-150 4 units 151-200 8 unit 201-250 10 units 251-300 12 units 301-350 14 units 351-400 16 units >400 18 units and call the office For lunch and dinner: <120 0 units 121-150 7 units 151-200 11 unit 201-250 13 units 251-300 15 units 301-350 17 units 351-400 19 units >400 20 units and call the office If you experience low blood sugar, treat this by eating a chewable fruit candy like skittles or jelly beans (about 8 pieces), 4 ounces (1/2 cup) of fruit juice (not diet), 1 tablespoon of honey or 4 glucose tablets. If your blood sugar is under 50, take double the amount of one of the above. Recheck your blood sugar in 15 minutes. Coding Level of Care Code Est Pt Level 4 (10568) Diagnoses Type 2 diabetes mellitus with diabetic nephropathy, without long-term current use of insulin E11.21 Diabetes mellitus complication detail: with nephropathy Diabetes mellitus complication status: with kidney complications Diabetes mellitus terminal superintendent insulin use: without longterm use CPT Codes Details - CPT: 14476 - Glucose monitoring, continuous-physician I&R ([id number])
[2025-06-01 14:30] VITALS: BP 104/64; PULSE 66; O2SAT 98; BMI 25.7
[2025-06-01 14:40] LABS: Glucose, Whole Blood 286 mg/dL (60-115)
--- OUTSIDE RECORDS SUMMARY | 2025-06-01 18:12 | XMS_ITS ---
Author Organization [facility] Address [address] [place] [address] Phone Care Team Providers Care Dinkey Operator Slag Name Role Phone Jung Carranza MD Primary Care Provider +1- [phone] Active Problems Problem Noted Date Diagnosed Date Chemotherapy-induced peripheral neuropathy ([facility] V24) 05/24/2025 Transaminitis 04/26/2025 Anxiety 04/26/2025 Chemotherapy-induced fatigue 04/26/2025 Left upper quadrant abdominal pain 03/08/2025 Family history of pancreatic cancer 02/01/2025 Lung cancer ([facility] V24, [facility] V28) Overview (02/01/2025): s/p L lobectomy in 2004, R wedge resection 2009 TIA (transient ischemic attack) 01/19/2025 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 ([facility] V24, CMS/HCC V28) 12/22/2024 Cancer Staging:Pathologic stage from 01/07/2025:Stage IIA(pT3, pN0, cM0) - Signed by Carmen Felix MD on 02/02/2025 Malignant neoplasm of upper lobe of right lung (CMS/HCC V24, CMS/HCC V28) 07/01/2024 Malignant neoplasm of ascend ing colon (CMS/HCC V24, CMS/HCC V28) 02/21/2021 Asthma-COPD overlap syndrome (CMS/HCC V24, [facility] V28) 11/06/2017 COPD (chronic obstructive pu lmonary disease) ([facility] V24, [facility] V28) 11/06/2017 Gastroesophageal reflux 11/06/2017 Hiatal hernia 11/06/2017 Hyperlipidemia 11/06/2017 Pulmonary nodules 11/06/2017 Adenocarcinoma of lung ([facility] V24, [facility] V28 ) 06/01/2009 Osteoporosis 02/16/2009 Current Oncology Plans FOLFIRINOX ( Fluorouracil Continuous Infusion / Leucovorin / Irinotecan / OXALIplatin )* Plan Start Date:04/04/2025 Plan Provider:Carmen Felix MD Linked Problems 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 ([facility] V24, [facility] V28) Treatment Medications Current Day (Day 4 RN to DELETE day if GCSF is not being given on day 4, Cycle 4 - Planned for 05/28/2025) Next Day (Day 1, Cycle 5 - Planned for 06/08/2025) 5-FU (ADRUCIL) chemo infusio n 100 mL - for home use solutionfluorouracil (ADRUCIL)irinotecan (CAMPTOSAR) chemo IVPBleucovorinleucovorin IVPB in D5W (350 mg vial)OXALIplatin (ELOXATIN)OXALIplatin (ELOXATIN) chemo infusion No medications scheduled. fluorouracil (ADRUCIL) 3,150 mg in sodium chloride 0.9 % 100 mL chemo infusionfluorouracil (ADRUCIL) chemo injectionirinotecan (CAMPTOSAR) in dextrose 261.5 mL chemo IVPBleucovorin IVPBOXALIplatin (ELOXATIN) chemo infusion HYDRATION AND ELECTROLYTES* Plan Start Date:04/15/2025 Plan Provider:Carmen Felix MD Linked Problems 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 ([facility] V24, [facility] V28) Treatment Medications No medications scheduled. Past Plans No past plan information found. Radiation Treatments * No radiation treatments are documented for this patient in [facility]. Treatments may have been administered in another system. Lifetime Dose Tracking * Chemical Lifetime Dose Automatic Entry Manual Entr y Fluoro Time 1 minutes 1 minutes 0 minutes Air Kerma 7 mGy 7 mGy 0 mGy
--- OUTSIDE RECORDS SUMMARY | 2025-06-01 18:12 | XMS_ITS | Encounter Summary ---
Author Organization [facility] Address [address] [place] [address] Phone Care Team Providers Care Bus Repair Supervisor Name Role Phone Evangelist Gabriel MD Unavailable [phone] Vignesh Farias MD Unavailable [phone] Dixon Quiñones NP Unavailable [phone] Hong Maddox MD Unavailable [phone] Kym Carrazna MD Primary Care Provide r Self-Referred, Patient Unavailable Unavailab Pravin Leung MD Unavailable [phone] Johana Amador MD Unavailable [phone] Johana Amador MD Primary Care Provid er Kym Carranza MD Primary Care Provide r Carmen Felix MD Unavailable [phone] Encounter Details Date Type Department Care Team (Late st Contact Info) Description 02/21/2021 Procedure Pass [facility], Ct Scan - [address] [id number] Social History Tobacco Use Types Packs/Day Years Used Date Smoking Tobacco: Former Cigarettes Q uit: 06/04/2004 Smokeless Tobacco: Never Alcohol Use Standard Drinks/Week Comments No 0 (1 standard drink = 0.6 oz pur e alcohol) Comments No Sex and Gender Information Value Date Recorded Sex Assigned at Female 01/02/2022 1:38 PM EDT Legal Sex Female 10:02 PM EDT Gender Identity Female 01/02/2022 1:38 PM EDT Sexual Orientation Not on file documented as of this encounter Plan of Treatment Upcoming Encounters Date Type Department Care Team (Late st Contact Info) Description 12/29/2024 Procedure Pass [facility] [address] [place] [address] 06/14/2025 12:30 PM EDT Appointment [facility] [address] [place] [address] Prince Freitas MD [address] [place] [address], [address] [place] [address] 06/28/2025 1:40 PM EDT Office Visit [facility] [address] [place] [address] 3rd Floor, [address] [place] [address] Prince Freitas MD [address] [place] [address], [address] [address] documented as of this encounter Visit Diagnoses Not on filedocumented in this encounter Care Teams Bus Repair Supervisor Relationship Specialty Start Date End Date Kym Carranza MD [address] [place] [address] PCP - General Internal Medicine 11/28/20 05/04/21 Johana Amador MD [address] [place] [address] PCP - General Gastroenterology 05/05/21 12/21/21 Kym Carranza MD [address] [place] [address] PCP - General Internal Medicine 12/22/21 Evangelist Gabriel MD [facility] [place], [address] [place] [address] Historical LMR Provider 07/04/17 09/23/21 Vignesh Farias MD [address] [place] [address], [address] [address] Historical LMR Provider 07/04/17 09/23/21 Dixon Quiñones, ELVIRA [address] [place] [address] [address] Historical LMR Provider 07/04/17 2 Hong Maddox MD [address] [place] [address] [email or web address] Historical LMR Provider 07/04/17 Self-Referred, Patient Referring Physician 11/28/20 Pravin Landis MD [address] [place] [address] [email or web address] Primary Oncologist Medical Oncology 02/08/21 Johana Amador MD [address] [place] [address] Referring Physician Gastroenterology 03/27/21 Carmen Felix MD [address] [place] [phone] Ramos [email or web address] Medical Oncology 03/11/24 documented as of this encounter Additional Source Comments The information contained in this document represents components of the legal health record. It is not the complete legal health record.[facility]
--- OUTSIDE RECORDS SUMMARY | 2025-06-01 18:12 | XMS_ITS | Encounter Summary ---
Author Organization [facility] Address [address] [place] [address] Phone Care Team Providers Care Timber Hewer Name Role Phone Evangelist Gabriel MD Unavailable [phone] Vignesh Farias MD Unavailable [phone] Dixon Quiñones NP Unavailable Hong Maddox MD Unavailable [phone] Pravin Landis MD Unavailable [phone] Johana Amador MD Unavailable [phone] Johana Amador MD Primary Care Provid er Kym Carranza MD Primary Care Provide r Carmen Felix MD Unavailable [phone] Encounter Details Date Type Department Care Team (Late st Contact Info) Description 08/29/2021 Procedure Pass [address] [address] Social History Tobacco Use Types Packs/Day Years [...] Info) Description 12/29/2024 Procedure Pass [facility] [address] [place] [address] 06/14/2025 12:30 PM EDT Appointment Echo [facility] [address] [place] [address] Prince Freitas MD [address] [place] [address] 06/28/2025 1:40 PM EDT Office Visit [facility] [address] Floor, [address] [address] Prince Freitas MD [address] [place] [address] documented as of this encounter Visit Diagnoses Not on filedocumented in this encounter Care Teams Timber Hewer Relationship Specialty Start Date End Date Johana Amador MD [address] [place] [address] PCP - General Gastroenterology 05/05/21 12/21/21 Kym Carranza MD [address] [place] [address] PCP - General Internal Medicine 12/22/21 Evangelist Gabriel MD [address] [place] [address] Historical LMR Provider 07/04/17 09/23/21 Vignesh Farias MD [address] [place] [address] [phone] [email or web address] Historical LMR Provider 07/04/17 09/23/21 Dixon Quiñones NP [address] [place] [phone] Historical LMR Provider 07/04/17 2 Hong Maddox MD [address] [address] [email or web address] Historical LMR Provider 07/04/17 Pravin Landis MD [address] [place] [address] [email or web address] Primary Oncologist Medical Oncology 02/08/21 Johana Amador MD [address] [address] Referring Physician Gastroenterology 03/27/21 Carmen Felix MD [address] [place] [phone] Ramos [email or web address] Medical Oncology 03/11/24 documented as of this encounter Additional Source Comments The information contained in this document represents components of the legal health record. It is not the complete legal health record.[facility]
--- OUTSIDE RECORDS SUMMARY | 2025-06-01 18:12 | XMS_ITS | Encounter Summary ---
Author Organization [facility] Address [address] [place] [address] [place] [address] Phone Care Team Providers Care Flat Knitter Helper Name Role Phone Hong Maddox MD Unavailable [phone] Pravin Landis MD Unavailable Johana Amador MD Unavailable [phone] Kym Carranza MD Primary Care Provide r Carmen Felix MD Unavailable [phone] Encounter Details Date Type Department Care Team (Late st Contact Info) Description 03/13/2022 Procedure Pass [facility], [facility] [place] [address] [facility], Floor [address] [place] [address] Social History Tobacco Use Types Packs/Day Years [...] Info) Description 12/29/2024 Procedure Pass [facility] [address] [place] [address] 06/14/2025 12:30 PM EDT Appointment Echo [facility] [address] [place] [address] Prince Freitas MD [address] [place] [address], [address] [address] 06/28/2025 1:40 PM EDT Office Visit [facility] [address] [place] [address] 3rd Floor, [address] [place] [address] Prince Freitas MD [address] [place] [address] [email or web address] documented as of this encounter Visit Diagnoses Not on filedocumented in this encounter Care Teams Flat Knitter Helper Relationship Specialty Start Date End Date Kym Carranza MD [address] [place] [address] PCP - General Internal Medicine 12/22/21 Hong Maddox MD [address] [place] [address] [email or web address] Historical LMR Provider 07/04/17 Pravin Landis MD [address] [place] [address] [email or web address] Primary Oncologist Medical Oncology 02/08/21 Johana Amador MD [address] [address] Referring Physician Gastroenterology 03/27/21 Carmen Felix MD [address] [place] [phone] [email or web address] Medical Oncology 03/11/24 documented as of this encounter Additional Source Comments The information contained in this document represents components of the legal health record. It is not the complete legal health record.[facility]
--- OUTSIDE RECORDS SUMMARY | 2025-06-01 18:12 | XMS_ITS | Encounter Summary ---
Author Organization [facility] Address [address] [place] [address] [place] [address] Phone Care Team Providers Care Locomotive Engineer Diesel Name Role Phone Hong Maddox MD Unavailable [phone] Pravin Landis MD Unavailable [phone] Johana Amador MD Unavailable [phone] Kym Carranza MD Primary Care Provide r Carmen Felix MD Unavailable [phone] Encounter Details Date Type Department Care Team (Late st Contact Info) Description 03/13/2022 Procedure Pass [facility], [facility] [place], [place] [address] [facility], Floor [address]1 [place] [address] Social History Tobacco Use Types [...] Info) Description 12/29/2024 Procedure Pass [facility] [address] [place] [address] 06/14/2025 12:30 PM EDT Appointment [facility] [address] [place] [address] Prince Freitas MD [address] [place] [address], [address] [address] 06/28/2025 1:40 PM EDT Office Visit [facility] [address] [place] [address] 3rd Floor, [address] [place] [address] Prince Freitas MD [address] [place] [address] [email or web address] documented as of this encounter Visit Diagnoses Not on filedocumented in this encounter Care Teams Locomotive Engineer Diesel Relationship Specialty Start Date End Date Kym Carranza MD [address] [place] [address] PCP - General Internal Medicine 12/22/21 Hong Maddox MD [address] [place] [address] [email or web address] Historical LMR Provider 07/04/17 Pravin Landis MD [address] [place] [address] [email or web address] Primary Oncologist Medical Oncology 02/08/21 Johana Amador MD [address] [address] Referring Physician Gastroenterology 03/27/21 Carmen Felix MD [address] [place] [phone] [email or web address] Medical [email or web address] 03/11/24 documented as of this encounter Additional Source Comments The information contained in this document represents components of the legal health record. It is not the complete legal health record.[facility]
--- OUTSIDE RECORDS SUMMARY | 2025-06-01 18:12 | XMS_ITS | Clinical Summary ---
Author Organization [facility] Address [address] [place] [address] Phone Care Team Providers Care Retail Store Assistant Name Role Phone Jung Carranza MD Primary Care Provider [phone] Allergies Active Allergy Reactions Criticality Noted Date [...] tabletIndications: Malignant neoplasm of tail of pancreas ([facility] V24, [facility] V28) Dissolve 1 tablet (8 mg total) on top of the tongue every 8 (eight) hours if needed for nausea or vomiting. 20 tablet 11 03/29/20 25 025 Active nystatin (Nyamyc) 100,000 unit/gram powder APPLY TO THE AFFECTED AREAS IN THE BREAST TWICE DAILY MAINTENANCE. 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 Suggested by gastroenterolo gist-per patient for diarrhea. IBS Active dexAMETHasone (DECADRON) 4 mg tabletIndications: Malignant neoplasm of tail of pancreas (CMS/HCC V24, CMS/HCC V28) Take 8 mg (2 tablets) once daily, starting the day after treatment, for two days. Take in the morning with food. 30 tablet 1 04/05/20 25 Active prochlorperazine (COMPAZINE) 10 mg tabletIndications: Malignant neoplasm of tail of pancreas (CMS/HCC V24, CMS/HCC V28) Take 1 tablet (10 mg total) by mouth every 6 (six) hours if needed for nausea or vomiting. 60 tablet 3 04/05/20 25 Active prochlorperazine (COMPAZINE) 10 mg tablet Take 1 tablet (10 mg total) by mouth every 6 (six) hours if needed for vomiting or nausea. 60 tablet 3 03/29/20 25 025 Active Problems Problem Noted Date Diagnosed Date Chemotherapy-induced peripheral neuropathy ([facility] V24) 05/24/2025 Transaminitis 04/26/2025 Anxiety 04/26/2025 Chemotherapy-induced fatigue 04/26/2025 Left upper quadrant abdominal pain 03/08/2025 Family history of pancreatic cancer 02/01/2025 Lung cancer ([facility] V24, [facility] V28) Overview (02/01/2025): s/p L lobectomy in 2004, R wedge resection 2009 TIA (transient ischemic attack) 01/19/2025 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 ([facility] V24, CMS/HCC V28) 12/22/2024 Cancer Staging:Pathologic stage from 01/07/2025:Stage IIA(pT3, pN0, cM0) - Signed by Carmen Felix MD on 02/02/2025 Malignant neoplasm of upper lobe of right lung (CMS/HCC V24, CMS/HCC V28) 07/01/2024 Malignant neoplasm of ascend ing colon (CMS/HCC V24, CMS/HCC V28) 02/21/2021 Asthma-COPD overlap syndrome (CMS/HCC V24, CMS/H CC V28) 11/06/2017 COPD (chronic obstructive pu lmonary disease) ([facility] V24, CMS/HCC V28) 11/06/2017 Gastroesophageal reflux 11/06/2017 Hiatal hernia 11/06/2017 Hyperlipidemia 11/06/2017 Pulmonary nodules 11/06/2017 Adenocarcinoma of lung ([facility]/HCC V24, CMS/HCC V28 ) 06/01/2009 Osteoporosis 02/16/2009 Encounters Date Type Department Care Team Description 05/27/2025 12:58 PM EDT - 05/27/2025 11:59 PM EDT Hospital Encounter [address] [phone] Carmen Rodriguez MD Malignant neoplasm of tail of pancreas ([facility]/HCC V24, CMS/HCC V28) (Primary Dx) Discharge Disposition: Home or Self Care 05/25/2025 8:19 AM EDT - 05/25/2025 11:59 PM EDT Hospital Encounter [address] [phone] Carmen Rodriguez MD Malignant neoplasm of tail of pancreas (CMS/HCC V24, CMS/HCC V28) (Primary Dx); Adenocarcinoma of right lung (CMS/HCC V24, CMS/HCC V28); Malignant neoplasm of ascending colon (CMS/HCC V24, CMS/HCC V28) Discharge Disposition: Home or Self Care 05/24/2025 8:30 AM EDT Office Visit [facility] Hematology Oncology [address] [place] [phone] Carmen Rodriguez MD Malignant neoplasm of tail of pancreas (CMS/HCC V24, CMS/HCC V28) (Primary Dx); Transaminitis; Anxiety; Chemotherapy-induce d fatigue; Adenocarcinoma of right lung (CMS/HCC V24, CMS/HCC V28); Hiatal hernia; Chemotherapy-induce d peripheral neuropathy ([facility]/HCC V24) 05/19/2025 9:45 AM EDT Office Visit General Surgery - [place] [facility] [address] [place] [phone] Diogenes Medrano MD Malignant neoplasm of body of pancreas ([facility]/HCC V24, CMS/HCC V28) (Primary Dx) 05/13/2025 11:48 AM EDT - 05/13/2025 11:59 PM EDT Hospital Encounter [facility] [address] [place] [phone] Carmen Rodriguez MD Malignant neoplasm of tail of pancreas ([facility]/HCC V24, [facility]/HCC V28) (Primary Dx); Adenocarcinoma of right lung ([facility]/HCC V24, [facility]/HCC V28) Discharge Disposition: Home or Self Care 05/11/2025 8:30 AM EDT - 05/11/2025 11:59 PM EDT Hospital Encounter [facility] [address] [place] [phone] Carmen Rodriguez MD Malignant neoplasm of tail of pancreas [facility], [facility] V28) (Primary Dx) Discharge Disposition: Home or Self Care 05/10/2025 3:15 PM EDT Office Visit [facility] Hematology Oncology [address] [place] [phone] Carmen Rodriguez MD Malignant neoplasm of tail of pancreas ([facility], [facility] V28) (Primary Dx) 05/10/[address] [phone] Arminda Glover RN 04/29/2025 12:02 PM EDT - 04/29/2025 11:59 PM EDT Hospital Encounter [address] [phone] Carmen Rodriguez MD Malignant neoplasm of tail of pancreas ([facility], [facility]/HCC V28) (Primary Dx) Discharge Disposition: Home or Self Care 04/27/2025 8:20 AM EDT - 04/27/2025 11:59 PM EDT Hospital Encounter [facility] Infusion [address] [phone] Carmen Rodriguez MD Malignant neoplasm of tail of pancreas (CMS/HCC V24, CMS/HCC V28) (Primary Dx) Discharge Disposition: Home or Self Care 04/26/2025 3:15 PM EDT Office Visit [facility] Hematology Oncology [address] [place] [phone] Carmen Rodriguez MD Malignant neoplasm of tail of pancreas (CMS/HCC V24, CMS/HCC V28) (Primary Dx); Transaminitis; Anxiety; Chemotherapy-induce d fatigue 04/20/2025 Telephone [facility] Radiation Oncology [address] [place] [phone] Mary Hay, KAYCEE 04/19/2025 Telephone [facility] [address] [place] [phone] Nuria Muñoz RN 04/15/2025 11:23 AM EDT - 04/15/2025 11:59 PM EDT Hospital Encounter [address] [phone] Carmen Rodriguez MD Malignant neoplasm of tail of pancreas (CMS/HCC V24, CMS/HCC V28) (Primary Dx) Discharge Disposition: Home or Self Care 04/12/2025 2:30 PM EDT Office Visit [facility] Hematology Oncology [address] [place] [phone] Vannessa Palma PA Muscle cramps (Primary Dx); Malignant neoplasm of tail of pancreas (CMS/HCC V24, CMS/HCC V28); Malignant neoplasm of ascending colon (CMS/HCC V24, CMS/HCC V28); Adenocarcinoma of right lung (CMS/HCC V24, CMS/HCC V28) 04/07/2025 1:21 PM EDT - 04/07/2025 11:59 PM EDT Hospital Encounter [facility] [address] [place] [phone] Carmen Rodriguez MD Malignant neoplasm of tail of pancreas (CMS/HCC V24, CMS/HCC V28) (Primary Dx); Adenocarcinoma of right lung (CMS/HCC V24, CMS/HCC V28) Discharge Disposition: Home or Self Care 04/05/2025 8:19 AM EDT - 04/05/2025 11:59 PM EDT Hospital Encounter [facility] [address] [place] [phone] Carmen Rodriguez MD Malignant neoplasm of tail of pancreas (CMS/HCC V24, CMS/HCC V28) (Primary Dx) Discharge Disposition: Home or Self Care 04/05/2025 Social Work [facility] [address] [place] [phone] [facility] 03/29/2025 11:45 AM EDT Office Visit [facility] Hematology Oncology [address] [place] [phone] Carmen Rodriguez MD Malignant neoplasm of tail of pancreas (CMS/HCC V24, CMS/HCC V28) (Primary Dx); Malignant neoplasm of ascending colon (CMS/HCC V24, CMS/HCC V28); Adenocarcinoma of right lung (CMS/HCC V24, CMS/HCC V28); TIA (transient ischemic attack) 03/23/2025 11:58 AM EDT - 03/23/2025 11:59 PM EDT Hospital Encounter [facility] Interventional Radiology [address] [place] [phone] Malignant neoplasm of tail of pancreas ([facility]/HCC V24, [facility]/HCC V28) Discharge Disposition: Home or Self Care 03/16/2025 2:52 PM EDT - 03/16/2025 11:59 PM EDT Hospital Encounter [facility] CT Scan [address] [place] [phone] Malignant neoplasm of tail of pancreas ([facility]/HCC V24, [facility]/HCC V28) Discharge Disposition: Home or Self Care 03/08/2025 11:45 AM EDT Office Visit [facility] Hematology Oncology [address] [place] [phone] Carmen Rodriguez MD Malignant neoplasm of tail of pancreas ([facility] V24, [facility] V28) (Primary Dx); Left upper quadrant abdominal pain from Last 3 Months Immunizations Name Administration Dates Next Due HiB PRP-T conjugate (Acthib, Hiberix) 6wks and older 01/08/2025(Deferred: Patient Refused) Meningococcal B, Recombinant (Bexsero) 16yo to less than 24yo 01/08/2025 AudioCompass (ages 12 & older) MENG S-CoV-2 COVID-19, [...] DX:Asthma Asthma-COPD overlap syndrome [place] [place], [facility] [place] 11/06/2017 DX:Asthma-COPD overlap syndr ome (HCC) COPD (chronic obstructive pu lmonary disease) ([facility] [place], [facility] [place]) 11/06/2017 DX:COPD (chronic o bstructive pulmonary disease) (HCC) Gastroesophageal reflux 11/06/2017 DX:Gastr oesophageal reflux Hiatal hernia 11/06/2017 DX:Hiatal hernia History of lung cancer 11/06/2017 DX:Histor y of lung cancer; COMMENT: X2, s/p resection Hyperlipidemia 11/06/2017 DX:Hyperlipidemi a Pulmonary nodules 11/06/2017 DX:Pulmonary n odules Lung cancer ([facility] [place], [facility] V28) DX:Lung cancer (HCC) COPD (chronic obstructive pu lmonary disease) ([facility] [place], [facility] [place]) DX:COPD (chronic o bstructive pulmonary disease) (HCC) GERD (gastroesophageal reflux disease) DX:GERD (gastroesophageal reflux disease) Colon cancer (CMS/HCC V24, CMS/HCC V28) DX:Colon cancer (HCC) Diabetes mellitus (CMS/HCC V 24, CMS/HCC V28) DX:Diabetes mellitus (HCC) CT, old Heart disease Shortness of breath Liver [...] Sign Reading Time Taken Comments Blood Pressure 107/63 05/25/2025 8:32 AM EDT Pulse 87 05/25/2025 8:32 AM EDT Temperature 36.3 C (97.3 F) 05/25/2025 8:32 AM EDT Respiratory Rate 16 05/25/2025 8:32 AM EDT Oxygen Saturation 98% 05/25/2025 8:32 AM EDT Inhaled Oxygen Concentration - - Weight 69.8 kg (153 lb 12.8 oz) 05/25/2025 8:32 AM EDT Height 162.6 cm (5' 4.02 ) 05/19/2025 9:44 AM ED T Body Mass Index 26.38 05/19/2025 9:44 AM EDT Plan of Treatment Upcoming Encounters Date Type Department Care Team (Late st Contact Info) Description 06/07/2025 9:30 AM EDT Appointment [address] [phone] 06/08/2025 8:00 AM EDT Appointment [address] [phone] 06/21/2025 11:45 AM EDT Office Visit [facility] Hematology Oncology [address] [place] [phone] Carmen Felix MD [address] [place] [phone] Health Maintenance Due Date Last Done Comments Diabetes: Annual Foot Exam 02/29/1960 Diabetes: Annual Retina Eye Exam 02/29/1960 Zoster Vaccines (1 of 2) 1969 DTaP,Tdap,and Td Vaccines (2 - Td or Tdap) 09/16/2015 09/16/2005 Hepatitis C Screening 07/01/2024 Medicare Annual Wellness Visit 07/01/2024 Osteoporosis Screening (Bone Density Screening) 07/01/2024 Social Influencers of Health Screening 07/01/2024 Depression Screening 09/16/2024 Diabetes: Annual Urine Albumin-Creatinine Ratio (uACR) 10/02/2024 COVID-19 Vaccine ( season) 2025 10/22/2023, 06/27/2022, 02/06/2022, Additional history exists Influenza Vaccine (#1) 2025 , 07/17/2023, 06/27/2022, Additional history exists Diabetes: Blood Sugar Control Test (HGBA1C) 07/22/2025 01/19/2025 Falls Risk Assessment 05/11/2026 05/11/2025 Diabetes: Annual GFR (Glomerular Filtration Rate) 05/24/2026 05/24/2025, 05/10/2025, 04/26/2025, Additional history exists Hypertension/CHF/CAD Annual BMP Blood Test 05/24/2026 05/24/2025, 05/10/2025, 04/26/2025, Additional history exists Cholesterol Screening (Lipid Panel) [...] this topic Medical Devices Implanted Type Area Solar Installer Pv Device Identifier Shelf Expiration Date Model / Serial / Lot Port Pwr Slim Poly 6f Sandra Inte Attach - [id number] Implanted:Qty: 1 on 03/23/2025 by Blake Beaulieu MD at [facility] Central/Yaneth pheral Catheters and Ports Right: Chest Wall CR [employer] [id number] 11/13/2025 [id number] / / [id number] Procedures Procedure Name Priority Date/Time Associated Diagnosis Comments CBC WITH AUTO DIFFERENTIAL Routine 05/24/2025 8:56 AM EDT Malignant neoplasm of tail of pancreas (CMS/HCC V24, CMS/HCC V28) COMPREHENSIVE METABOLIC PANEL Routine 05/24/2025 8:56 AM EDT Malignant neoplasm of tail of pancreas (CMS/HCC V24, CMS/HCC V28) CBC AND DIFFERENTIAL Routine 05/24/2025 8:56 AM EDT Malignant neoplasm of tail of pancreas (CMS/HCC V24, CMS/HCC V28) CBC WITH AUTO DIFFERENTIAL Routine 05/10/2025 3:34 PM EDT Malignant neoplasm of tail of pancreas (CMS/HCC V24, CMS/HCC V28) CANCER ANTIGEN 19-9 Routine 05/10/2025 3 :34 PM EDT Malignant neoplasm of tail of pancreas (CMS/HCC V24, CMS/HCC V28) COMPREHENSIVE METABOLIC PANEL Routine 05/10/2025 3:34 PM EDT Malignant neoplasm of tail of pancreas (CMS/HCC V24, CMS/HCC V28) CBC AND DIFFERENTIAL Routine 05/10/2025 3:34 PM EDT Malignant neoplasm of tail of pancreas (CMS/HCC V24, CMS/HCC V28) CBC WITH AUTO DIFFERENTIAL Routine 04/26/2025 3:07 PM EDT Colon cancer (CMS/HCC V24, CMS/HCC V28) CARCINOEMBRYONIC ANTIGEN Routine 3:07 PM EDT Colon cancer (CMS/HCC V24, CMS/HCC V28) CBC AND DIFFERENTIAL Routine 04/26/2025 3:07 PM EDT Colon cancer (CMS/HCC V24, CMS/HCC V28) COMPREHENSIVE METABOLIC PANEL Routine 04/26/2025 3:07 PM EDT Colon cancer (CMS/HCC V24, CMS/HCC V28) CBC WITH AUTO DIFFERENTIAL Routine 04/19/2025 9:39 AM EDT Malignant neoplasm of tail of pancreas (CMS/HCC V24, CMS/HCC V28) COMPREHENSIVE METABOLIC PANEL Routine 04/19/2025 9:39 AM EDT Malignant neoplasm of tail of pancreas (CMS/HCC V24, CMS/HCC V28) CBC AND DIFFERENTIAL Routine 04/19/2025 9:39 AM EDT Malignant neoplasm of tail of pancreas (CMS/HCC V24, CMS/HCC V28) CBC WITH AUTO DIFFERENTIAL Routine 04/12/2025 3:34 PM EDT Malignant neoplasm of tail of pancreas (CMS/HCC V24, CMS/HCC V28) CBC AND DIFFERENTIAL Routine 04/12/2025 3:34 PM EDT Malignant neoplasm of tail of pancreas (CMS/HCC V24, CMS/HCC V28) MAGNESIUM Routine 04/12/2025 3:34 PM EDT Muscle cramps BASIC METABOLIC PANEL Routine 04/12/2025 3:34 PM EDT Muscle cramps IR INSERT TUNNELED CVAD W SUBQ PORT MORE 5YRS RIGHT Routine 03/23/2025 2:12 PM EDT Malignant neoplasm of tail of pancreas (CMS/HCC V24, CMS/HCC V28) CBC WITH AUTO DIFFERENTIAL Routine 03/23/2025 12:21 PM EDT Malignant [...] tail of pancreas (CMS/HCC V24, CMS/HCC V28) HEMOGLOBIN A1C Add-On 01/19/2025 3:51 AM EDT LIPID PANEL WITH REFLEX TO DIRECT LDL Add-On 01/19/2025 3:51 AM EDT COLONOSCOPY Routine 12/17/2024 10:44 AM EDT Personal history of colon cancer from Last 3 Months or Most Recently Relevant to Health Maintenance Results * (ABNORMAL) CBC auto differential (05/24/2025 8:56 AM EDT) Only the most recent of6 resultswithin the time period is included. WBC 5.8 4.8 - 10.8 K/[facility] HEMETOLOGY METHOD 05/24/2025 11:41 AM [facility] RBC 4.60 3.80 - 4.80 M/[facility] LAB HEMETOLOGY METHOD 05/24/2025 11:41 AM [facility] Hemoglobin 13.5 11.5 - 16.0 g/dL LAB HEMETOLOGY METHOD 05/24/2025 11:41 AM [facility] Hematocrit 41.8 35.0 - 47.0 % LAB HEMETOLOGY METHOD 05/24/2025 11:41 AM [facility] MCV 90.9 79.0 - 98.0 FL LAB HEMETOLOGY METHOD 05/24/2025 11:41 AM [facility] MCH 29.3 27.0 - 32.0 pcg LAB HEMETOLOGY METHOD 05/24/2025 11:41 AM [facility] MCHC 32.3 32.0 - 37.0 g/dL LAB HEMETOLOGY METHOD 05/24/2025 11:41 AM [facility] RDW 16.4(H) 11.0 - 15.0 % LAB HEMETOLOGY METHOD 05/24/2025 11:41 AM [facility] Platelets 349 130 - 400 K/[facility] LAB HEMETOLOGY METHOD 05/24/2025 11:41 AM [facility] MPV 10.7 7.0 - 11.0 FL LAB HEMETOLOGY METHOD 05/24/2025 11:41 AM [facility] NRBC 1.0(H) <1.0 % LAB HEMETOLOGY METHOD 05/24/2025 11:41 AM [facility] NRBC Absolute 0.06 <0.10 K/[facility] HEMETOLOGY METHOD 05/24/2025 11[facility]41 [facility] Neutrophils Relative 54.1 % LAB HEMETOLOGY METHOD 05/24/2025 11:41 AM [facility] Lymphocytes Relative 28.4 % LAB HEMETOLOGY METHOD 05/24/2025 11:41 AM [facility] Monocytes Relative 13.9 % LAB HEMETOLOGY METHOD 05/24/2025 11:41 AM [facility] Eosinophils Relative 2.6 % LAB HEMETOLOGY METHOD 05/24/2025 11:41 AM [facility] Basophils Relative 0.7 % LAB HEMETOLOGY METHOD 05/24/2025 11:41 AM [facility] Immature Granulocytes Relative 0.3 % LAB HEMETOLOGY METHOD 05/24/2025 11:41 AM [facility] Neutrophils Absolute 3.15 1.50 - 7.00 K/mcL LAB HEMETOLOGY METHOD 05/24/2025 11:41 AM [facility] Lymphocytes Absolute 1.65 1.00 - 5.00 K/mcL LAB HEMETOLOGY METHOD 05/24/2025 11:41 AM [facility] Monocytes Absolute 0.81 0.20 - 1.00 K/mcL LAB HEMETOLOGY METHOD 05/24/2025 11:41 AM [facility] Eosinophils Absolute 0.15 0.00 - 0.50 K/mcL LAB HEMETOLOGY METHOD 05/24/2025 11:41 AM [facility] Basophils Absolute 0.04 0.00 - 0.20 K/mcL LAB HEMETOLOGY METHOD 05/24/2025 11:41 AM [facility] Immature Granulocytes Absolute 0.02 0.00 - 0.03 K/mcL LAB HEMETOLOGY METHOD 05/24/2025 11:41 AM [facility] Blood Venous blood specimen / Unknown Venipuncture / Unknown 05/24/2025 8:56 AM EDT 05/24/2025 11:22 AM EDT Carmen Felix MD LAB BLOOD ORDERABLE S Final Result [facility] [address] [place] [address], [place] [phone] * (ABNORMAL) Comprehensive metabolic panel (05/24/2025 8:56 AM EDT) Only the most recent of5 resultswithin the time period is included. Sodium 139 133 - 145 mmol/L LAB CHEMISTRY METHOD 05/24/2025 12:01 PM [facility] Potassium 4.5 3.5 - 5.5 mmol/L LAB CHEMISTRY METHOD 05/24/2025 12:01 PM [facility] Chloride 104 96 - 110 mmol/L LAB CHEMISTRY METHOD 05/24/2025 12:01 PM [facility] CO2 29 21 - 32 mmol/L LAB CHEMISTRY METHOD 05/24/2025 12:01 PM [facility] Anion Gap 6 3 - 11 LAB CHEMISTRY METHOD 05/24/2025 12:01 PM [facility] Glucose 206(H) 70 - 100 mg/dL LAB CHEMISTRY METHOD 05/24/2025 12:01 PM [facility] BUN 26(H) 5 - 25 mg/dL LAB CHEMISTRY METHOD 05/24/2025 12:01 PM [facility] Creatinine 1.17(H) 0.50 - 1.10 mg/dL LAB CHEMISTRY METHOD 05/24/2025 12:01 PM [facility] eGFR 49(L) >=60 mL/min/1. 73m2 LAB CHEMISTRY METHOD 05/24/2025 12:01 PM [facility] Comment:Calculation based on the Chronic Kidney Disease Epidemiology Collaboration (CKD-EPI) equation refit without adjustment for race. BUN/Creatinine Ratio 22.2 LAB CHEMISTRY METHOD 05/24/2025 12:01 PM [facility] Calcium 9.5 8.5 - 10.5 mg/dL LAB CHEMISTRY METHOD 05/24/2025 12:01 PM [facility] AST (SGOT) 42 10 - 42 unit/L LAB CHEMISTRY METHOD 05/24/2025 12:01 PM [facility] ALT (SGPT) 66(H) 10 - 60 unit/L LAB CHEMISTRY METHOD 05/24/2025 12:01 PM [facility] Alkaline Phosphatase 59 42 - 121 unit/L LAB CHEMISTRY METHOD 05/24/2025 12:01 PM [facility] Total Protein 6.0 6.0 - 8.0 g/dL LAB CHEMISTRY METHOD 05/24/2025 12:01 PM [facility] Albumin 3.4 3.2 - 5.0 g/dL LAB CHEMISTRY METHOD 05/24/2025 12:01 PM [facility] Total Bilirubin 1.3 0.0 - 1.4 mg/dL LAB CHEMISTRY METHOD 05/24/2025 12:01 PM [facility] Blood Venous blood specimen / Unknown Venipuncture / Unknown 05/24/2025 8:56 AM EDT 05/24/2025 11:21 AM EDT us Subramsarah Felix MD LAB BLOOD ORDERABLE S Final Result [facility] [address] [place] [address], * (ABNORMAL) Cancer antigen 19-9 (05/10/2025 3:34 PM EDT) CA 19-9 64.4(H) <=35 U/mL 05/13/2025 12:59 PM EDT [facility] Comment: The Siemens Advia Centaur CA199 Chemiluminescent Immunoassay is used. Results obtained with different assay methods or kits cannot be used interchangeably. Results cannot be interpreted as absolute evidence of the presence or absence of malignant disease. Test performed at [facility], [address] , [place] [address] Sangita Sharma MD, PhD - Contracts Manager Blood Venous blood specimen / Unknown Venipuncture / Unknown 05/10/2025 3:34 PM EDT 05/10/2025 4:30 PM EDT Carmen Felix MD LAB BLOOD ORDERABLE S Final Result Performing Organization Address [facility] Co de Phone Number [facility] [address] [place] [address] * CEA (04/26/2025 3:07 PM EDT) Pathologist [facility] CEA 2.8 0.0 - 5.0 ng/mL LAB CHEMISTRY METHOD 04/26/2025 6:16 PM EDT [facility] Blood Venous blood specimen / Unknown Venipuncture / Unknown 04/26/2025 3:07 PM EDT 04/26/2025 4:34 PM EDT Narrative [facility] - 04/26/2025 6:16 PM EDT The Siemens Advia Centaur Chemiluminescent Immunoassay is used. Results obtained with different assay methods or kits cannot be used interchangeably. Results cannot be interpreted as absolute evidence of the presence or absence of malignant disease. Carmen Felix MD LAB BLOOD ORDERABLE S Final Result Performing Organization Address City/[facility]/ZIP Co de Phone Number [facility] [address] [place] [address], [place] [phone] * Magnesium (04/12/2025 3:34 PM EDT) Magnesium 2.0 1.9 - 2.6 mg/dL LAB CHEMISTRY METHOD 04/12/2025 5:35 PM EDT [facility] Blood Venous blood specimen / Unknown Venipuncture / Unknown 04/12/2025 3:34 PM EDT 04/12/2025 4:32 PM EDT us Vannessa ROSAS LAB BLOOD ORDERABLES Final Re sult [facility] [address] [place] [address], [place] [phone] * (ABNORMAL) Basic metabolic panel (04/12/2025 3:34 PM EDT) Sodium 137 133 - 145 mmol/L LAB CHEMISTRY METHOD 04/12/2025 5:35 PM [facility] Potassium 4.5 3.5 - 5.5 mmol/L LAB CHEMISTRY METHOD 04/12/2025 5:35 PM [facility] Chloride 105 96 - 110 mmol/L LAB CHEMISTRY METHOD 04/12/2025 5:35 PM [facility] CO2 29 21 - 32 mmol/L LAB CHEMISTRY METHOD 04/12/2025 5:35 PM [facility] Anion Gap 3 3 - 11 LAB CHEMISTRY METHOD 04/12/2025 5:35 PM [facility] Glucose 201(H) 70 - 100 mg/dL LAB CHEMISTRY METHOD 04/12/2025 5:35 PM [facility] BUN 33(H) 5 - 25 mg/dL LAB CHEMISTRY METHOD 04/12/2025 5:35 PM [facility] Creatinine 1.29(H) 0.50 - 1.10 mg/dL LAB CHEMISTRY METHOD 04/12/2025 5:35 PM [facility] eGFR 43(L) >=60 mL/min/1. 73m2 LAB CHEMISTRY METHOD 04/12/2025 5:35 PM EDT [facility] Comment:Calculation based on the Chronic Kidney Disease Epidemiology Collaboration (CKD-EPI) equation refit without adjustment for race. BUN/Creatinine Ratio 25.6 LAB CHEMISTRY METHOD 04/12/2025 5:35 PM EDT [facility] Calcium 9.6 8.5 - 10.5 mg/dL LAB CHEMISTRY METHOD 04/12/2025 5:35 PM EDT [facility] Blood Venous blood specimen / Unknown Venipuncture / Unknown 04/12/2025 3:34 PM EDT 04/12/2025 4:32 PM EDT Vannessa ROSAS LAB BLOOD ORDERABLES Final Re sult [facility] [address] [place] [address], [place] [phone] * IR Insert Tunneled CVAD w Subq [...] and placed within the pocket. An 8 Afghan peel-away sheath with a hemostatic valve placed [...] Signed Date: 03/23/2025 14:17 ET Workstation ID: [id number] Transcribed By: Self Edit Transcribed Date: 03/23/2025 [...] image of the right chest shows newly iymwalXjrj-Y-Fxsg with tip within the distal superior vena cava. Summary: Successful placement of a port via the right internal jugularvein. -------- FINAL REPORT -------- Dictated By: Blake Beaulieu Dictated Date: 03/23/2025 14:17 ET Assigned Physician: Blake Beaulieu Reviewed and Electronically Signed By: Blake Beaulieu Signed Date: 03/23/2025 14:17 ET Workstation ID: [id number] Transcribed By: Self Edit Transcribed Date: 03/23/2025 14:17 ET us Subramony Subramonia-Cory STORY IMG IR PROCEDURES F inal Result * CT Abdomen Pelvis w Contrast (03/16/2025 [...] Signed Date: 03/16/2025 17:30 ET Workstation ID: [id number] Transcribed By: Self Edit Transcribed Date: 03/16/2025 [...] Dictated Date: 03/16/2025 16:29 ET Assigned Physician: RDEW GUTIERREZ Reviewed and Electronically Signed By: DREW GUTIERREZ Signed Date: 03/16/2025 17:30 ET Workstation ID: [id number] Transcribed By: Self Edit Transcribed Date: 03/16/2025 16:29 ET us Subramony Subramonia-Cory STORY [facility] [place] PROCEDURES F inal Result * (ABNORMAL) Lipid panel with reflex to direct LDL (01/19/2025 3:51 AM EDT) Cholesterol 126 0 - 200 mg/dL LAB CHEMISTRY METHOD 01/19/2025 3:36 PM EDT [facility] Triglycerides 153(H) 0 - 150 mg/dL LAB CHEMISTRY METHOD 01/19/2025 3:36 PM EDT [facility] HDL 50 >=40 mg/dL LAB CHEMISTRY METHOD 01/19/2025 3:36 PM EDT [facility] LDL Calculated 45 0 - 100 mg/dL LAB CHEMISTRY METHOD 01/19/2025 3:36 PM EDT [facility] VLDL Cholesterol Russell 30.6 mg/dL LAB CHEMISTRY METHOD 01/19/2025 3:36 PM EDT [facility] Non HDL Chol. (LDL+VLDL) 76 <145 mg/dL LAB CHEMISTRY METHOD 01/19/2025 3:36 PM EDT [facility] Chol/HDL Ratio 2.5 0.0 - 4.4 LAB CHEMISTRY METHOD 01/19/2025 3:36 PM EDT [facility] Blood Venous blood specimen / Unknown Venipuncture / Unknown 01/19/2025 3:51 AM EDT 01/19/2025 4:08 AM EDT us Annabelle ROSAS LAB BLOOD ORDERABLES Final Resul t [facility] [address] [place] [address], * (ABNORMAL) Hemoglobin A1c (01/19/2025 3:51 AM EDT) Hemoglobin A1C 8.9(H) <6.5 % LAB CHEMISTRY METHOD 01/19/2025 1:38 PM EDT [facility] Mean Bld Glu Estim. 209 mg/dL LAB CHEMISTRY METHOD 01/19/2025 1:38 PM EDT [facility] Blood Venous blood specimen / Unknown Venipuncture / Unknown 01/19/2025 3:51 AM EDT 01/19/2025 4:08 AM EDT us Annabelle ROSAS LAB BLOOD ORDERABLES Final Resul t [facility] [address] [place] [address], * COLONOSCOPY Anesthesia - MAC; [facility] ENDOSCOPY (12/17/2024 10:44 AM EDT) Anatomical Region Laterality Modality Endoscopy 12/17/2024 10:2 8 AM EDT Impressions 12/17/2024 10:46 AM EDT - Patent vwyq-pm-qkbr ileo-colonic anastomosis, characterized by healthy appearing mucosa. - Diverticulosis in the sigmoid colon. - Internal hemorrhoids. - The examination was otherwise normal. - No specimens collected. Recommendation: - Discharge patient to home. - Repeat colonoscopy in 5 years for surveillance. Narrative 12/17/2024 10:46 AM EDT [facility] Patient Name: Corin Alvarenga Procedure Date: [...] verified by the physician, the nurse, the audio visual project manager and the smog technician in the pre-procedure area in the [...] normal. There was evidence of a prior jnve-hi-vstg ileo-colonic anastomosis in the ascending colon. This [...] neoplasm of large intestine CPT copyright 2020 [employer]. All rights reserved. The codes documented in this report are preliminary and upon kinesiotherapist review may be revised to meet current compliance requirements. Valente Camarena MD 12/17/2024 10:46:21 AM This report has been signed electronically.Valente Camarena MD Number of Addenda: 0 Note Initiated On: 12/17/2024 10:28 AM Scope Withdrawal Time: 0 hours 6 minutes 55 seconds Scope In: 10:35:31 AM Scope Out: 10:45:39 AM Endoscopy Department at [facility] - [address] [place] [phone] Procedure Note Valente Camarena MD - 12/17/2024 [facility] Patient Name: Corin Alvarenga Procedure Date: [...] the physician, the nurse, theanesthetist and the smog technician in the pre-procedure area in the [...] normal. There was evidence of a prior ualr-yd-iqam ileo-colonic anastomosis in the ascending colon.This was [...] malignantneoplasm of large intestine CPT copyright 2020 [employer]. All rights reserved. The codes documented in this report are preliminary and upon kinesiotherapist reviewmay be revised to meet current compliance requirements. Valente Camarena MD 12/17/2024 10:46:21 AM This report has been signed electronically.Valente Camarena MD Number of Addenda: 0 Note Initiated On: 12/17/2024 10:28 AM Scope Withdrawal Time: 0 hours 6 minutes 55 seconds Scope In: 10:35:31 AM Scope Out: 10:45:39 AM Endoscopy Department at [facility] - [address] [place] [phone] IMPRESSION: - Patent xzoj-au-mgtg ileo-colonic anastomosis, characterized by healthy appearing mucosa. [...] currently active code status orders. Care Teams Retail Store Assistant Relationship Specialty Start Date End Date Jung Carranza MD [address] [place] [address] [address] [place], [place] PCP - General Internal Medicine 12/08/18
--- OUTSIDE RECORDS SUMMARY | 2025-06-01 18:12 | XMS_ITS | Encounter Summary ---
Author Organization [facility] Address [address] [place] [address] Phone Care Team Providers Care Clay Digger Name Role Phone Evangelist Gabriel MD Unavailable [phone] Vignesh Farias MD Unavailable [phone] Dixon Quiñones NP Unavailable Hong Maddox MD Unavailable [phone] Pravin Landis MD Unavailable [phone] Johana Amador MD Unavailable [phone] Johana Amador MD Primary Care Provid er Kym Carranza MD Primary Care Provide r Carmen Felix MD Unavailable [phone] Encounter Details Date Type Department Care Team (Late st Contact Info) Description 08/29/2021 Procedure Pass [address] [address] Social History Tobacco Use Types Packs/Day Years [...] Info) Description 12/29/2024 Procedure Pass [facility] [address] [place] [address] 06/14/2025 12:30 PM EDT Appointment [facility] [address] [place] [address] Prince Freitas MD [address] [place] [address] 06/28/2025 1:40 PM EDT Office Visit [facility] [address] Floor, [address] [address] Prince Freitas MD [address] [place] [address] documented as of this encounter Visit Diagnoses Not on filedocumented in this encounter Care Teams Clay Digger Relationship Specialty Start Date End Date Johana Amador MD [address] [place] [address] PCP - General Gastroenterology 05/05/21 12/21/21 Kym Carranza MD [address] [place] [address] PCP - General Internal Medicine 12/22/21 Evangelist Gabriel MD [address] [place] [address] Historical LMR Provider 07/04/17 09/23/21 Vignesh Farias MD [address] [place] [address] [phone] [email or web address] Historical LMR Provider 07/04/17 09/23/21 Dixon Quiñones NP [address] [place] [phone] Historical LMR Provider 07/04/17 2 Hong Maddox MD [address] [address] [email or web address] Historical LMR Provider 07/04/17 Pravin Landis MD [address] [place] [address] [email or web address] Primary Oncologist Medical Oncology 02/08/21 Johana Amador MD [address] [address] Referring Physician Gastroenterology 03/27/21 Carmen Felix MD [address] [place] [phone] Ramos [email or web address] Medical Oncology 03/11/24 documented as of this encounter Additional Source Comments The information contained in this document represents components of the legal health record. It is not the complete legal health record.[facility]
--- OUTSIDE RECORDS SUMMARY | 2025-06-01 18:12 | XMS_ITS | Encounter Summary ---
Author Organization [facility] Address [address] [place] [address] Phone Care Team Providers Care Dietitian Helper Name Role Phone Evangelist Gabriel MD Unavailable [phone] Vignesh Farias MD Unavailable [phone] Dixon Quiñones NP Unavailable [phone] Hong Maddox MD Unavailable [phone] Kym Carranza MD Primary Care Provide r Self-Referred, Patient Unavailable Unavailab Pravin Leung MD Unavailable [phone] Johana Amador MD Unavailable [phone] Johana Amador MD Primary Care Provid er Kym Carranza MD Primary Care Provide r Carmen Felix MD Unavailable [phone] Encounter Details Date Type Department Care Team (Late st Contact Info) Description 12/20/2020 Procedure Pass [facility] Periop [address] [place], [place] [id number] Social History Tobacco Use Types Packs/Day Years [...] 7:00 PM EDT Derrick Palacio RN * [place] Suicide Severity Rating Scale (Screener/Recent Self-Report) Question [...] Info) Description 12/29/2024 Procedure Pass [facility] [address] [place] [address] 06/14/2025 12:30 PM EDT Appointment Echo Lab [address] [place] [address] Prince Freitas MD [address] [place] [address] 06/28/2025 1:40 PM EDT Office Visit [facility] [address] [place] [address] [address]rd Floor, [address] [address] Prince Freitas MD [address] [place] [address] documented as of this encounter Visit Diagnoses Not on filedocumented in this encounter Care Teams Dietitian Helper Relationship Specialty Start Date End Date Kym Carranza MD [address] [place] [address] [place] [address] PCP - General Internal Medicine 11/28/20 05/04/21 Johana Amador MD [address] [place] [address] PCP - General Gastroenterology 05/05/21 12/21/21 Kym Carranza MD [address] [place] [address] PCP - General Internal Medicine 12/22/21 Evangelist Gabriel MD [address] [place] [address] [email or web address] Historical LMR Provider 07/04/17 09/23/21 Vignesh Farias MD [address] [place] [address] [email or web address] Historical LMR Provider 07/04/17 09/23/21 Dixon Quiñones NP [address] [place] [phone] Historical LMR Provider 07/04/17 2 Hong Maddox MD [address] [place] [address] [email or web address] Historical LMR Provider 07/04/17 Self-Referred, Patient Referring Physician 11/28/20 Pravin Landis MD [address] [place] [address] [email or web address] Primary Oncologist Medical Oncology 02/08/21 Johana Amador MD [address] [address] Referring Physician Gastroenterology 03/27/21 Carmen Felix MD [address] [place] [address] Ramos [email or web address] 03/11/24 documented as of this encounter Additional Source Comments The information contained in this document represents components of the legal health record. It is not the complete legal health record.[facility]
--- OUTSIDE RECORDS SUMMARY | 2025-06-01 18:12 | XMS_ITS | Clinical Summary ---
Author Organization [facility] Address [address] [place] [address] Phone Care Team Providers Care Corporate Tutor Name Role Phone Hong Maddox MD Unavailable [phone] Pravin Landis MD Unavailable [phone] Johana Amador MD Unavailable [phone] Kym Carranza MD Primary Care Provide r Carmen Felix MD Unavailable [phone] Allergies Active Allergy Reactions Criticality Noted Date Comments Aspirin Swelling,Angioedema High 12/06/2017 Mouth swelling Latex, Natural Rubber Itching Low 12/06/2017 Levofloxacin Diarrhea Low 12/06/2017 Gabapentin Hives Low 05/21/2018 Medications LORazepam (ATIVAN) 0.5 MG tablet Take 1 tablet by mouth nightly as needed. Active CETIRIZINE HCL (ZYRTEC ORAL) Active budesonide-formoter ol (SYMBICORT) 160-4.5 mcg/actuation inhaler Inhale 2 puffs into the lungs 2 (two) times a day. Active empagliflozin (JARDIANCE) 25 mg tablet Take 25 mg by mouth daily. Active SPIRIVA RESPIMAT 2.5 mcg/actuation mist for inhalation Inhale 2 puffs into the lungs daily. 1 Active TRINTELLIX 10 mg Tab Take 10 mg by mouth nightly at bedtime. 1 Active loperamide (IMODIUM) 2 mg capsule Take 2 mg by mouth 4 (four) times a day as needed for diarrhea. Active multivitamin-minera ls-lutein (MULTIVITAMIN 50 PLUS) Tab Take 1 tablet by mouth daily. Active b complex vitamins capsule Take 1 capsule by mouth daily. Vitamin B3 Active calcium carbonate/vitamin D3 (CALCIUM WITH VITAMIN D3 ORAL) Take 1 tablet by mouth daily. Active NYAMYC powder APPLY TO THE AFFECTED AREAS IN THE BREAST TWICE DAILY MAINTENANCE. 3 Active clopidogrel (PLAVIX) 75 mg tabletIndications:M edication refill Take 1 tablet (75 mg total) by mouth daily. 90 tablet 3 5 Active ezetimibe (ZETIA) 10 mg tabletIndications:H yperlipidemia, unspecified hyperlipidemia type Take 1 tablet (10 mg total) by mouth daily. 90 tablet 3 5 Active rosuvastatin (CRESTOR) 40 MG tabletIndications:M edication refill TAKE 1 TABLET BY MOUTH EVERY NIGHT AT BEDTIME 100 tablet 2 5 Active Active Problems Problem Noted Date Diagnosed Date Malignant neoplasm of colon 02/21/2021 Cancer Staging:Pathologic stage from 12/20/2020:Stage IIA(pT3, pN0, cM0) - Signed by Jeannie Man MD, PhD on 02/21/2021 S/P colon resection 12/20/2020 Chronic obstructive pulmonary disease (COPD) 09/2020 Coronary artery disease invo lving [place] coronary artery of [place] heart without angina pectoris 11/11/2017 Overview (04/12/2020): 2000 PCI BMS LAD 2002 CATH EF 40 NONOBST 2016 NUKE ANT IL; EF 40-45 07/2019 ECHO EF 50-55%; DD1; 11/2019 NUKE ANT IL EF 41% Assessment & Plan (09/13/2020 2:48 PM EST): Doing very well. Last nuclear exam was 9 months ago without evidence for ischemia. Assessment & Plan (04/12/2020 1:44 PM EDT): No further chest discomfort for now for several months. Assessment & Plan (12/08/2019 1:37 PM EDT): I have scheduled her for an exercise nuclear stress test. I have given her a prescription for sublingual nitroglycerin and reviewed its use. Assessment & Plan (06/03/2019 3:13 PM EDT): No angina. No ischemia on nuclear stress testing from 2 years ago. I am going to repeat her echocardiogram and get a proBNP today to look for heart failure. If these are benign and unchanged then I will not change any of her medications and I will see her again in several months. Assessment & Plan (11/24/2018 2:26 PM EDT): Doing well. Last nuclear scan from 2 years ago was benign with reasonable ejection fraction and no evidence for an ischemic defect. Assessment & Plan (05/21/2018 4:22 PM EDT): Doing very well. No evidence of heart failure or recurrent ischemic issues. Assessment & Plan (02/07/2018 4:53 PM EDT): I believe she is back at her baseline. She has managed to lose almost 20 pounds and is becoming more active. She has been told by her new primary physician that she may be diabetic and is concerned about that but her weight loss will certainly help. Her blood sugar on recent labs was 146 but she has not had a hemoglobin A1c drawn. Assessment & Plan (12/06/2017 4:51 PM EDT): No symptoms of ischemic disease. Last nuclear stress test was negative about 6 months ago. Ischemic cardiomyopathy 11/11/2017 Assessment & Plan (05/21/2018 4:22 PM EDT): Well compensated. Assessment & Plan (02/07/2018 4:53 PM EDT): No evidence for heart failure. Well compensated with a normal proBNP. Assessment & Plan (12/06/2017 4:51 PM EDT): Unchanged as of recent echocardiogram. Assessment & Plan (11/11/2017 4:01 PM EST): As of the echocardiogram done at [facility] this is unchanged. Ejection fraction remains in the high 40s. Mixed hyperlipidemia 11/11/2017 Assessment & Plan (09/13/2020 2:49 PM EST): Recent profile drawn on the of this month include an LDL of 45 with an HDL of 55 and triglycerides 104. Creatinine was 1.1 with a BUN of 25 and a potassium of 4.7; LFTs were normal Assessment & Plan (04/12/2020 1:46 PM EDT): Medications are unchanged. Good profile several months ago. Will repeat in August. Assessment & Plan (12/08/2019 1:38 PM EDT): Recent profile includes an LDL and HDL in the 40s with triglycerides in the 90s. Renal and hepatic function are normal. Assessment & Plan (06/03/2019 3:13 PM EDT): LDL and HDL in the 40s with triglycerides in the 90s. Assessment & Plan (11/24/2018 2:27 PM EDT): Recent labs drawn on 18 November include LDL of 58, HDL 51, triglycerides 155; creatinine 1.1, BUN 21, potassium 4.7; LFTs normal. Assessment & Plan (05/21/2018 4:22 PM EDT): Lipid profile is fine with an LDL of 55 and HDL 37. Assessment & Plan (02/07/2018 4:54 PM EDT): Remains on rosuvastatin and Zetia. I will have a lipid profile drawn in several months at her next visit. Assessment & Plan (11/11/2017 4:01 PM EST): Medications are unchanged. No recent profile. Dyspnea 11/11/2017 Assessment & Plan (06/03/2019 3:13 PM EDT): As above she will undergo an echocardiogram and have a proBNP drawn today. Assessment & Plan (12/06/2017 4:50 PM EDT): I'm not sure where her dyspnea is originating. I have no evidence for congestive heart failure at this juncture. Today's exam was euvolemic and neither chest x- ray normal proBNP which support the diagnosis of heart failure. I have to believe this has to have something to do with her pulmonary issues and I will ask that this note go to her pulmonary physician Dr. Daniel. Assessment & Plan (11/11/2017 4:00 PM EST): Cyndi is only had mild dyspnea due to her lobectomy and chronic lung disease but this does sound like it could represent heart failure from overhydration at the time of her sepsis. I would have her get a proBNP and a chest x-ray done today. She is asked me to have her urine culture repeated so I am going to do that as well. If there is any sign on her chest x-ray or her proBNP is further elevated she will need to be at least on diuretics for a while. Again I've increase her losartan back to 50. Lung cancer Overview (12/15/2020): s/p L lobectomy in 2004, R wedge resection 2009 Diabetes mellitus GERD without esophagitis Anxiety Encounters Date Type Department Care Team Description 04/27/2025 Refill [facility] [address], [address] [place] [address] Prince Freitas MD Medication Refill 03/10/2025 Refill [facility] [address], [address] [place] [address] Neeta Hinojosa MA Medication Refill from Last 3 Months Family History Medical History Relation Comments CV disease Maternal Grandfather 2 CV disease Maternal Grandmother 2 CV disease Mother 2 Stroke Mother 2 Relation Status Comments Maternal Grandfather 1 Maternal Grandfather 2 Maternal Grandmother 1 Maternal Grandmother 2 Mother 1 Mother 2 Social History Tobacco Use Types Packs/Day Years Used Date Smoking Tobacco: Former Cigarettes Q uit: 06/04/2004 Smokeless Tobacco: Never Tobacco Cessation:Counseling Given: Not Answered Alcohol Use Standard Drinks/Week Comments No 0 (1 standard drink = 0.6 oz pur e alcohol) Education Answer Date Recorded Are you interested in more education? Not on tejal e 01/11/2023 Are you concerned about learning? Not on file 01/11/2023 No 01/11/2023 No 01/11/2023 Digital Access Answer Date Recorded No 02/05/2023 No 02/05/2023 Reliable internet access at home? Not on file 02/05/2023 Device with a working camera? Not on file Comments No Sex and Gender Information Value Date Recorded Sex Assigned at Female 01/02/2022 1:38 PM EDT Legal Sex Female 10:02 PM EDT Gender Identity Female 01/02/2022 1:38 PM EDT Sexual Orientation Not on file Last Filed Vital Signs Vital Sign Reading Time Taken Comments Blood Pressure 116/62 12/28/2024 12:43 PM EDT Pulse 95 12/28/2024 12:43 PM EDT Temperature 36.3 C (97.3 F) 12/11/2023 1:31 PM EDT Respiratory Rate 14 12/11/2023 1:31 PM EDT Oxygen Saturation 96% 12/28/2024 12:43 PM EDT Inhaled Oxygen Concentration - - Weight 68 kg (150 lb) 12/28/2024 12:43 PM EDT Height 162 cm (5' 3.78 ) 06/23/2024 12:52 PM EDT Body Mass Index 25.93 06/23/2024 12:52 PM EDT Plan of Treatment Upcoming Encounters Date Type Department Care Team (Late st Contact Info) Description 12/29/2024 Procedure Pass [facility] [address] [place] [address] 06/14/2025 12:30 PM EDT Appointment [facility] [place] [address] [place] [address] Prince Freitas MD [address] [place] [address], [address] [place] [address] 06/28/2025 1:40 PM EDT Office Visit [facility] [address] Floor, [address] [place] [address] Prince Freitas MD [address] [place] [address], [address] [place] [address] [email or web address] Health Maintenance Due Date Last Done Comments DEPRESSION SCREENING 1962 HEPATITIS C SCREENING 02/29/1968 ZOSTER VACCINES (1 of 2) 1969 COLOGUARD 1995 FIT TEST 1995 FOBT 1995 SIGMOIDOSCOPY 1995 VIRTUAL COLONOSCOPY 1995 OSTEOPOROSIS SCREENING INITIAL (ONE-TIME) 2015 Adult Td,Tdap Booster 09/16/2015 09/16/2005 DIABETIC EYE EXAM 12/15/2020 URINE MICROALBUMIN/CREATININE RATIO 12/15/2020 HEMOGLOBIN A1C 06/22/2021 12/21/2020 INFLUENZA VACCINE (#1) 2025 , 06/27/2022, 06/27/2021, Additional history exists COVID-19 VACCINE ( season) 2025 10/22/2023, 06/27/2022, 02/06/2022, Additional history exists BLOOD PRESSURE 06/29/2025 12/28/2024 SMOKING Hx and SMOKELESS TOBACCO SCREENING 12/28/2025 12/28/2024 COLONOSCOPY 01/05/2032 01/04/2022 COLORECTAL CANCER SCREENING 01/05/2032 PNEUMOCOCCAL VACCINES (50+ years) Completed 07/01/2019, 07/14/2018 RSV VACCINE Completed 07/16/2023 HEPATITIS A VACCINES Aged Out No long er eligible based on patient's age to complete this topic HIB VACCINES Aged Out No longer eligi ble based on patient's age to complete this topic MENINGOCOCCAL VACCINES (ACWY) Aged Out No longer eligible based on patient's age to complete this topic MENINGOCOCCAL VACCINES (B) Aged Out N o longer eligible based on patient's age to complete this topic Medical Devices Implanted Type Area Installers Mechanical Device Identifier Shelf Expiration Date Model / Serial / Lot Stent Stent Description:2000 Procedures Procedure Name Priority Date/Time Associated Diagnosis Comments ENDOSCOPY, COLON 01/04/2022 2:42 PM EDT HEMOGLOBIN A1C Routine 12/21/2020 3:47 AM EDT from Last 3 Months or Most Recently Relevant to Health Maintenance Results * ENDOSCOPY, COLON (01/04/2022 2:42 PM EDT) 01/04/2022 2:42 PM EDT Narrative Transcriptions Mila Aldridge MD, MPH - 01/04/2022 2:42 PM EDT [facility] Gastroenterology Patient Name: Corin Alvarenga Procedure Date: 01/04/2022 2:42 PM Date of : 1950 Admit Type: Outpatient Age: 71 Room: 9 Gender: Female Note Status: Finalized Attending MD: MILA ALDRIDGE MD Procedure: Colonoscopy Indications: High risk colon cancer surveillance: Personal history of colon cancer Providers: MILA ALDRIDGE MD, ART MARIE RN Referring MD: Johana Amador (Referring MD) Medicines: Monitored Anesthesia Care Complications: No immediate complications. Estimated blood loss: None. Procedure: Pre-Anesthesia Assessment: - Monitored anesthesia care under the supervision of an anesthesiologist was determined to be medically necessary for this procedure based on age 65 or older. After informed consent was obtained, the scope was passed under direct vision. Throughout the procedure, the patient's blood pressure, pulse, and oxygen saturations were monitored continuously. The Colonoscope was introduced through the anus and advanced to the ileocolonic anastomosis. The colonoscopy was performed with ease. The patient tolerated the procedure well. The quality of the bowel preparation was good. Anatomical landmarks were photographed. Findings: Hemorrhoids were found on perianal exam. Scattered small and large-mouthed diverticula were found in the sigmoid colon. The exam was otherwise without abnormality on direct and retroflexion views. Impression: - Hemorrhoids found on perianal exam. - Diverticulosis in the sigmoid colon. - The examination was otherwise normal on direct and retroflexion views. - No specimens collected. Recommendation: - The patient will be observed post-procedure, until all discharge criteria are met. - Repeat colonoscopy in 3 years for surveillance. - Return to referring physician as previously scheduled. MILA ALDRIDGE MD 01/04/2022 3:36:20 PM This report has been signed electronically. Number of Addenda: 0 Note Initiated On: 01/04/2022 2:42 PM Johana Amador MD GI PROCEDURE ORDERAB LES Final Result * (ABNORMAL) Hemoglobin A1c (12/21/2020 3:47 AM EDT) HEMOGLOBIN A1C 7.7(H) 4.2 - 5.6 % [facility] Comment: HbA1c levels 5.7-6.4% represent pre-diabetes, indicating impaired glucose control and an increased risk of developing diabetes. The diagnostic HbA1c level for diabetes is 6.5% or greater. HbA1c levels <4.2% may indicate a hemoglobinopathy or anemia, and an alternative method is recommended to monitor glucose control. CALC MEAN BLD GLUC 174 mg/dL [facility] Comment: The Calculated Mean Blood Glucose (CMBG) represents the estimated average glucose calculated from the measured hemoglobin A1c (HbA1c). There is no established normal range for the CMBG, however a 5.6% HbA1c (upper limit of normal) represents a CMBG of 114 mg/dL. Blood 12/21/2020 3:47 AM EDT 12/21/2020 4:25 AM EDT Jose Navarro PA-C LAB BLOOD ORDERABLES Eloise ha Result Performing Organization Address City/State/[facility] Co de Phone Number [facility] [address] [place] [address] from Last 3 Months or Most Recently Relevant to Health Maintenance Insurance [facility] MEDICARE REPLACEMENT [facility]IC[facility] MEDICARE REPLACEMENT [facility] MEDICARE REPLACEMENT [facility] MEDICARE REPLACEMENT [facility] MEDICARE REPLACEMENT Advance Directives For more information, please contact: [phone] (9AM - 5PM Louise/[facility] [place], Saturday-Saturday) * Full Code (Latest Code Status on File) Date Activated Date Inactivated Comments 12/20/2020 6:12 PM Question Answer Comments Code Status Confirmed With: Patient * Full Code Date Activated Date Inactivated Comments 12/20/2020 10:44 AM 12/20/2020 6:12 PM Question Answer Comments Code Status Confirmed With: Patient Care Teams Corporate Tutor Relationship Specialty Start Date End Date Kym Carranza MD [address] [place] [address] 1 [place] [address] PCP - General Internal Medicine 12/22/21 Hong Maddox MD [address] [address] [email or web address] Historical LMR Provider 07/04/17 Pravin Landis MD [address] [place] [address] [email or web address] Primary Oncologist Medical Oncology 02/08/21 Johana Amador MD [address] [place] [address] Referring Physician Gastroenterology 03/27/21 Carmen Felix MD [address] [place] [phone] Ramos Medical Oncology 03/11/24 Additional Source Comments The information contained in this document represents components of the legal health record. It is not the complete legal health record.[facility]
--- OUTSIDE RECORDS SUMMARY | 2025-06-01 18:12 | XMS_ITS | Encounter Summary ---
Author Organization [facility] Address [address] [place] [address] Phone Care Team Providers Care Decontamination Worker Name Role Phone Evangelist Gabriel MD Unavailable Vignesh Farias MD Unavailable [phone] Dixon Quiñones NP Unavailable Hong Mdadox MD Unavailable [phone] Kym Carranza MD Primary Care Provide r Self-Referred, Patient Unavailable Unavailab Pravin Leung MD Unavailable [phone] Johana Amador MD Unavailable [phone] Johana Amador MD Primary Care Provid er Kym Carranza MD Primary Care Provide r Carmen Felix MD Unavailable [phone] Encounter Details Date Type Department Care Team ([facility] st Contact Info) Description 12/15/2020 Telephone [facility] [address] [place] [address] Kendall Garcia MD, MPH [address] [facility]-3rd [place] [address] [email or web address] Social History Tobacco Use Types Packs/Day Years [...] Info) Description 12/29/2024 Procedure Pass [facility] [address] [place] [address] 06/14/2025 12:30 PM EDT Appointment [facility] [address] [place] [address] Prince Freitas MD [address] [place] [address], [address] [address] [email or web address] 06/28/2025 1:40 PM EDT Office Visit [facility] [address] [place] [address] [address] Floor, [address] [place] [address] Prince Freitas MD [address] [place] [address], [address] [address] [email or web address] documented as of this encounter Visit Diagnoses Not on filedocumented in this encounter Care Teams Decontamination Worker Relationship Specialty Start Date End Date Kym Carranza MD [address] [place] [address] PCP - General Internal Medicine 11/28/20 05/04/21 Johana Amador MD [address] [place] [address] PCP - General Gastroenterology 05/05/21 12/21/21 Kym Carranza MD [address] [place] [address] 1 [place] [address] PCP - General Internal Medicine 12/22/21 Evangelist Gabriel MD [address] [place] [address] [email or web address] Historical LMR Provider 07/04/17 09/23/21 Vignesh Farias MD [address] [place] [address] [email or web address] Historical LMR Provider 07/04/17 09/23/21 Dixon Quiñones NP [address] [place] [address] [phone] Historical LMR Provider 07/04/17 2 Hong Maddox MD [address] [place] [address] [email or web address] Historical LMR Provider 07/04/17 Self-Referred, Patient Referring Physician 11/28/20 Pravin Landis MD [address] [place] [address] [email or web address] Primary Oncologist Medical Oncology 02/08/21 Johana Amador MD [address] [place] [address] Referring Physician Gastroenterology 03/27/21 Carmen Felix MD [address] [place] [address] [phone] [email or web address] 03/11/24 documented as of this encounter Additional Source Comments The information contained in this document represents components of the legal health record. It is not the complete legal health record.[facility]
--- OUTSIDE RECORDS SUMMARY | 2025-06-01 18:12 | XMS_ITS | Encounter Summary ---
Author Organization [facility] Address [address] [place] [address] Phone Care Team Providers Care Tool Grinder Set Up Operator Gear Name Role Phone Hong Maddox MD Unavailable [phone] Pravin Landis MD Unavailable [phone] Johana Amador MD Unavailable [phone] Kym Carranza MD Primary Care Provide r Carmen Felix MD Unavailable [phone] Encounter Details Date Type Department Care Team (Late st Contact Info) Description 01/04/2022 Procedure Pass [facility] Endoscopy Department [address] [place] [address] Social History Tobacco Use Types Packs/Day Years [...] Info) Description 12/29/2024 Procedure Pass [facility] [place] [place] [id number] 06/14/2025 12:30 PM EDT Appointment [facility] [place] [address] Prince Freitas MD [address] [facility], [address] [address] [email or web address] 06/28/2025 1:40 PM EDT Office Visit [facility] [address] [place] [address] 3rd Floor, [address] [place] [address] Prince Freitas MD [address] [place] [address], [address] [address] [email or web address] documented as of this encounter Visit Diagnoses Not on filedocumented in this encounter Care Teams Tool Grinder Set Up Operator Gear Relationship Specialty Start Date End Date Kmy Carranza MD [address] [place] [address] PCP - General Internal Medicine 12/22/21 Hong Maddox MD [address] [place] [address] [email or web address] Historical LMR Provider 07/04/17 Pravin Landis MD [address] [place] [phone] [email or web address] Primary Oncologist Medical Oncology 02/08/21 Johana Amador MD [address] [address] Referring Physician Gastroenterology 03/27/21 Carmen Felix MD [address] [place] [phone] [email or web address] Medical Oncology 03/11/24 documented as of this encounter Additional Source Comments The information contained in this document represents components of the legal health record. It is not the complete legal health record.[facility]
--- OUTSIDE RECORDS SUMMARY | 2025-06-01 18:13 | XMS_ITS | Encounter Summary ---
Author Organization [facility] Address [address] [place] [address] Phone Care Team Providers Care Offset Plate Preparation Supervisor Name Role Phone Evangelist Gabriel MD Unavailable [phone] Vignesh Farias MD Unavailable [phone] Dixon Quiñones NP Unavailable [phone] Hong Maddox MD Unavailable [phone] Kym Carranza MD Primary Care Provide r Self-Referred, Patient Unavailable Unavailab Pravin Leung MD Unavailable [phone] Johana Amador MD Unavailable [phone] Johana Amador MD Primary Care Provid er Kym Carranza MD Primary Care Provide r Carmen Felix MD Unavailable [phone] Encounter Details Date Type Department Care Team (Late st Contact Info) Description 02/10/2021 Ancillary Orders [facility],Outside Imaging [address] [place], [place] [phone] System, Provider Not In, [facility] [address] [address] Social History Tobacco Use Types Packs/Day Years [...] Info) Description 12/29/2024 Procedure Pass [facility] [address] [place] [address] 06/14/2025 12:30 PM EDT Appointment Echo Lab [address] [place] [address] Prince Freitas MD [address] [place] [address], [address] [address] 06/28/2025 1:40 PM EDT Office Visit [facility] [address] [place] [address] 3rd Floor, [address] [place] [address] Prince Freitas MD [address] [place] [address], [address] [address] documented as of this encounter Results * CT Abdomen/Pelvis Outside (No Interpretation) (12/02/2020 12:00 AM EDT) Narrative SYSTEMGENERATED, DOCUMENTATION - 02/10/2021 10:32 AM EDT This study is for PACS storage only and not for interpretation. us Provider Not In System PhD IMG OUTSIDE IMAGING W /OUT INTERPRETATION Final Result documented in this encounter Visit Diagnoses Not on filedocumented in this encounter Care Teams Offset Plate Preparation Supervisor Relationship Specialty Start Date End Date Kym Carranza MD [address] [place] [address] PCP - General Internal Medicine 11/28/20 05/04/21 Johana Amador MD [address] [address] PCP - General Gastroenterology 05/05/21 12/21/21 Kym Carranza MD [address] [place] [address] PCP - General Internal Medicine 12/22/21 Evangelist Gabriel MD [address] [place] [address] [email or web address] Historical LMR Provider 07/04/17 09/23/21 Vignesh Farias MD [address] [place] [address] Historical LMR Provider 07/04/17 09/23/21 Dixon Quiñones, ELVIRA [address] [place] [phone] Historical LMR Provider 07/04/17 2 Hong Maddox MD [address] [place] [address] [email or web address] Historical LMR Provider 07/04/17 Self-Referred, Patient Referring Physician 11/28/20 Pravin Landis MD [address] [place] [address] [email or web address] Primary Oncologist Medical Oncology 02/08/21 Johana Amador MD [address] [place] [address] Referring Physician Gastroenterology 03/27/21 Carmen Felix MD [address] [place] [address] Ramos [email or web address] Medical [email or web address] 03/11/24 documented as of this encounter Additional Source Comments The information contained in this document represents components of the legal health record. It is not the complete legal health record.[facility]
--- OUTSIDE RECORDS SUMMARY | 2025-06-01 18:13 | XMS_ITS | Encounter Summary ---
Author Organization [facility] Address [address] [place] [address] Phone Care Team Providers Care Office Machines Wirer Name Role Phone Evangelist Gabriel MD Unavailable [phone] Vignesh Farias MD Unavailable [phone] Dixon Quiñones NP Unavailable [phone] Hong Maddox MD Unavailable [phone] Kym Carranza MD Primary Care Provide r Self-Referred, Patient Unavailable Unavailab Pravin Leung MD Unavailable [phone] Johana Amador MD Unavailable [phone] Johana Amador MD Primary Care Provid er Kym Carranza MD Primary Care Provide r Carmen Felix MD Unavailable [phone] Encounter Details Date Type Department Care Team (Late st Contact Info) Description 02/06/2021 Procedure Pass [facility], [address] [phone] Social History Tobacco Use Types Packs/Day Years [...] Sign Reading Time Taken Comments Blood Pressure - - Pulse - - Temperature - - Respiratory Rate - - Oxygen Saturation - - Inhaled Oxygen Concentration - - Weight 79.4 kg (175 lb) 02/06/2021 2:55 PM EDT Height 160 cm (5' 3 ) 02/06/2021 2:55 PM EDT Body Mass Index 31 02/06/2021 2:55 PM EDT documented in this encounter Plan of Treatment Upcoming Encounters Date Type Department Care Team (Late st Contact Info) Description 12/29/2024 Procedure Pass [facility] [address] [place] [address] 06/14/2025 12:30 PM EDT Appointment Echo [facility] [address] [place] [address] Prince Freitas MD [address] [place] [address], [address] [address] 06/28/2025 1:40 PM EDT Office Visit [facility] [address] [place] [address] 3rd Floor, [address] [place] [address] Prince Freiats MD [address] [place] [address], [address] [address] documented as of this encounter Visit Diagnoses Not on filedocumented in this encounter Care Teams Office Machines Wirer Relationship Specialty Start Date End Date Kym Carranza MD [address] [place] [address] [address] [place] [address] PCP - General Internal Medicine 11/28/20 05/04/21 Johana Amador MD [address] [place] [address] PCP - General Gastroenterology 05/05/21 12/21/21 Kym Carranza MD [address] [facility] 1 [place] [address] PCP - General Internal Medicine 12/22/21 Evangelist Gabriel MD [address] [place] [address] [email or web address] Historical LMR Provider 07/04/17 09/23/21 Vignesh Farias MD [address] [place] [address] [email or web address] Historical LMR Provider 07/04/17 09/23/21 Dixon Quiñones NP [address] [place] [phone] Historical LMR Provider 07/04/17 2 Hong Maddox MD [address] [place] [address] [email or web address] Historical LMR Provider 07/04/17 Self-Referred, Patient Referring Physician 11/28/20 Pravin Landis MD [address] [place] [address] [email or web address] Primary Oncologist Medical Oncology 02/08/21 Johana Amador MD [address] [place] [address] Referring Physician Gastroenterology 03/27/21 Carmen Felix MD [address] [place] [phone] Ramos [email or web address] Medical Oncology 03/11/24 documented as of this encounter Additional Source Comments The information contained in this document represents components of the legal health record. It is not the complete legal health record.[facility]
--- OUTSIDE RECORDS SUMMARY | 2025-06-01 18:13 | XMS_ITS | Encounter Summary ---
Author Organization [facility] Address [address] [facility] [address] [place] [address] Phone Care Team Providers Care Powerhouse Mechanic Helper Name Role Phone Hong Maddox MD Unavailable [phone] Pravin Landis MD Unavailable [phone] Johana Amador MD Unavailable [phone] Kmy Carranza MD Primary Care Provide r Carmen Felix MD Unavailable [phone] Encounter Details Date Type Department Care Team (Late st Contact Info) Description 05/28/2023 Procedure Pass [facility] [place] [address] [address] Social History Tobacco Use Types Packs/Day Years [...] Upcoming Encounters Date Type Department Care Team ([facility] st Contact Info) Description 12/29/2024 Procedure Pass [facility] [address] [place] [address] 06/14/2025 12:30 PM EDT Appointment Echo [facility] [address] [place] [address] Prince Freitas MD [address] [place] [address], [address] [address] 06/28/2025 1:40 PM EDT Office Visit [facility] [address] 3rd Floor, [address] [place] [address] Prince Freitas MD [address] [place] [address], [address] [address] [email or web address] documented as of this encounter Visit Diagnoses Not on filedocumented in this encounter Care Teams Powerhouse Mechanic Helper Relationship Specialty Start Date End Date Kym Carranza MD [address] [place] [address] PCP - General Internal Medicine 12/22/21 Hong Maddox MD [address] [place] [address] [email or web address] Historical LMR Provider 07/04/17 Pravin Landis MD [address] [place] [address] [email or web address] Primary Oncologist Medical Oncology 02/08/21 Johana Amador MD [address] [address] Referring Physician Gastroenterology 03/27/21 Carmen Felix MD [address] [place] [address] Ramos [email or web address] 03/11/24 documented as of this encounter Additional Source Comments The information contained in this document represents components of the legal health record. It is not the complete legal health record.[facility]
--- OUTSIDE RECORDS SUMMARY | 2025-06-01 18:13 | XMS_ITS | Encounter Summary ---
Author Organization [facility] Address [address] [facility] [address] [place] [address] Phone Care Team Providers Care Utility Repairer Name Role Phone Hong Maddox MD Unavailable Pravin Landis MD Unavailable [phone] Johana Amador MD Unavailable [phone] Kym Carranza MD Primary Care Provide r Carmen Felix MD Unavailable [phone] Encounter Details Date Type Department Care Team (Late st Contact Info) Description 05/28/2023 Procedure Pass [facility] [place] [facility] [place] [address] [address] Social History Tobacco Use Types [...] Upcoming Encounters Date Type Department Care Team ([facility] st Contact Info) Description 12/29/2024 Procedure Pass [facility] [address] [place] [address] 06/14/2025 12:30 PM EDT Appointment Echo [facility] [address] [place] [address] Prince Freitas MD [address] [place] [address], [address] [address] 06/28/2025 1:40 PM EDT Office Visit [facility] [address] 3rd Floor, [address] [place] [address] Prince Freitas MD [address] [place] [address], [address] [address] [email or web address] documented as of this encounter Visit Diagnoses Not on filedocumented in this encounter Care Teams Utility Repairer Relationship Specialty Start Date End Date Kym Carranza MD [address] [place] [address] PCP - General Internal Medicine 12/22/21 Hong Maddox MD [address] [place] [address] [email or web address] Historical LMR Provider 07/04/17 Pravin Landis MD [address] [place] [address] [email or web address] Primary Oncologist Medical Oncology 02/08/21 Johana Amador MD [address] [address] Referring Physician Gastroenterology 03/27/21 Carmen Felix MD [address] [place] [address] Ramos [email or web address] 03/11/24 documented as of this encounter Additional Source Comments The information contained in this document represents components of the legal health record. It is not the complete legal health record.[facility]
== END 2025-06-01 15:17 | disposition home or self-care (01) ==
LOC: HO.ENCR 14:27
PROVIDERS: PCP Internal Medicine; Visit Provider Physician Assistant Medical
DX: E11.21 Type 2 diabetes mellitus with diabetic nephropathy (principal)

== ENCOUNTER → 2025-06-01 14:26 | Outpatient (BNVA) | payer OTHER, SELFPAY | PROVIDERS: PCP Internal Medicine; Visit Provider Physician Assistant Medical | DX: E11.21 Type 2 diabetes mellitus with diabetic nephropathy (principal) | CPT/HCPCS: 82947; 83036 ==

== ENCOUNTER 2025-07-06 13:51 | Outpatient (AMB) | payer OTHER, SELFPAY ==
--- OUTSIDE RECORDS SUMMARY | 2025-07-01 11:51 | XMS_ITS | Encounter Summary ---
Author Organization [facility] [place] [address] Care Team Providers Care Relocation Commissioner Name Role Phone Jung Carranza MD Primary Care Provider [phone] Encounter Details Date Type Department Care Team (Latest Contact Info) Description 07/01/2025 11:51 AM EDT - 07/01/2025 11:59 PM EDT Hospital Encounter [facility] [address] [facility] 2nd [place] [address] Adenocarcinoma of right lung (CMS/HCC V24, CMS/HCC V28) (Primary Dx); Malignant neoplasm of ascending colon (CMS/HCC V24, CMS/HCC V28) Discharge Disposition: Home or Self Care Social History Tobacco Use Types Packs/Day Years Used Date Smoking Tobacco: Former Cigarettes Smokeless Tobacco: Never Alcohol Use Standard Drinks/Week Comments Not Currently 0 (1 standard drink = 0.6 oz pur e alcohol) Interpersonal Safety Answer Date Record ed Physical Abuse Unrecognized value 01/07/2025 Verbal Abuse Unrecognized value 01/07/2025 Comments No Sex and Gender Information [...] of Assessment Author No 01/19/2025 3:44 AM EDT Alannah Merchant RN * Are you blind or do [...] mouth every 4 (four) hours if needed. budesonide-glycopy r-formoterol (Breztri Aerosphere) 160-9-4.8 mcg/actuation HFA aerosol inhaler inhaler Inhale 2 puffs by mouth 2 (two) times a day. calcium carbonate/vitamin D3 (CALCIUM + D ORAL) Take by mouth. cetirizine (ZyrTEC) 10 mg capsule 1 (one) time each day. clopidogreL (PLAVIX) 75 mg tablet Take 1 tablet (75 mg total) by mouth 1 (one) time each day. 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 Suggested by gastroenterologi st-per patient for diarrhea. IBS LORazepam (ATIVAN) 0.5 mg tablet - Route: Take 0.5 mg by mouth every 6 hours as needed. - Oral 06/13/2024 multivitamin (MULTIPLE VITAMINS ORAL) Take by mouth. nystatin (Nyamyc) 100,000 unit/gram powder APPLY TO THE AFFECTED AREAS IN THE BREAST TWICE DAILY MAINTENANCE. 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 60 tablet 6 10/29/2024 pen needle, diabetic (BD Ultra-Fine Short Pen Needle) 31 gauge x 5/16 needle 1 each 4 (four) times a day (before meals and nightly). 120 each 01/12/2025 prochlorperazine (COMPAZINE) 10 mg tabletIndications: Malignant neoplasm [...] documented in this encounter Progress Notes * Josie Galeana RN - 07/01/2025 12:00 PM EDT Patient arrives ambulatory to unit for 5FU pump disconnect. Patient states that she feels a little more run down. She denies pain, N/V, states that she's eating ok, could be drinking more water. Patient reports that she had a bad experience with the fulphila injection. Patient understands to start Augmentin today. Patient has no questions/concerns for the provider at this time. Patient received 100% of 5FU. Port flushed per protocol with +BR. Deaccessed intact. Patient has her next appts in place. Patient discharged stable, with steady gait. documented in this encounter Plan of Treatment Upcoming Encounters Date Type Department Care Team (Late st Contact Info) Description 07/13/2025 8:30 AM EDT Appointment [facility] [address] [address] 07/19/2025 3:15 PM EST Office Visit [facility] Oncology [address] [place] [phone] Thiago-Carmen Ray MD 271 [place] [address] documented as of this encounter Visit Diagnoses Diagnosis Adenocarcinoma of right lung (CMS/HCC V24, CMS/HCC V28)- Primary Malignant neoplasm of ascending colon (CMS/HCC V24, CMS/HCC V28) Malignant neoplasm of ascending colon documented in this encounter Care Teams Relocation Commissioner Relationship Specialty Start Date End Date Jung Carranza MD [address] [place] [address] Rd [address] [place], [place] PCP - General Internal Medicine 12/08/18 documented as of this encounter
[2025-07-06 13:54] VITALS: BP 100/68; PULSE 75; O2SAT 97; BMI 26.9
--- NOTE | 2025-07-06 13:54 | MHC.OFFVIS ---
Vital Signs 07/06/25 13:54 Height 5 ft 4 in Weight 156 lb 15.506 oz BMI 26.9 BP 100/68 Blood Pressure Location Lt brachial Position Sitting Pulse 75 Pulse Source Pulse Oximeter Pulse Oximetry (%) 97 Oxygen Delivery Method Room Air Intake Visit Reasons: type II Dm Intake Note: Patient present today to follow up on Type 2 Diabetes Mellitus.? Last Diabetic Eye exam: Within the year Last Podiatry Visit: Does not see a Stained Glass Painter Random Glucose: 329 mg/dL HgA1C: 9.0%, 06/01/2025 Information Systems Manager Required: No Accompanied by: Self / Same As Patient Allergies latex Allergy (Severe, Verified 07/06/25 13:58) Swelling levofloxacin (Levaquin) Allergy (Severe, Verified 07/06/25 13:58) Swelling Aspirin Allergy (Severe, Uncoded 07/06/25 13:58) Swelling HPI Comments Details: This is a 75-year-old female with a past medical history of type 2 diabetes, CHF, CAD, hiatal hernia with GERD, lung cancer, stage II adenocarcinoma of the colon, carotid artery stenosis, COPD, pulmonary nodules and recently diagnosed pancreatic cancer s/p tumor resection and splenectomy in December presenting for diabetic management. She was diagnosed with diabetes about 5 years ago. Her mother had type 2 diabetes. Surgeon -Dr. Medrano Oncologist- Dr. Ray. Patient says she had pancreatic mass resected and spleen removed on 01/07/2025 at [facility]. She is on chemotherapy every other week and receives a steroid infusion with chemo. She is intermediate through treatment, but she has been experiencing side effects recently including fatigue. She also has increased appetite on the steroids. Hemoglobin A1c 9.0% today 06/01/25. I reviewed her CGM data for the last 14 days: G WV 10.5% 72% very high 20% high 8% in range 0% hypoglycemia Postprandial hyperglycemia and hyperglycemia nocturnally. No hypoglycemia. Current medication regimen: Tresiba to 14 units nighlty She has a sliding scale for lispro before meals 3 times a day Past medications: Mounjaro was discontinued due to risk of pancreatitis. Rybelsus was discontinued due to abdominal pain in the past. She never tried metformin because she was concerned about potential side effects due to chronic diarrhea. Jardiance discontinued due to yeast infections. Hypoglycemia symptoms: none Hyperglycemia symptoms: fatigue Eye exam: [facility], no complications per patient last exam Microvascular complications: neuropathy, nephropathy (renal insufficiency) Macrovascular complications: CAD and PAD (Dr. Freitas) Hyperlipidemia is treated with rosuvastatin 40 mg at bedtime. ROS: Constitutional: Interval weight gain. No weight loss. Denies fevers and chills. Respiratory: No shortness of breath Cardiovascular: No chest pain Neurologic: No headache, dizziness, syncope Endocrine: see HPI Physical exam: Constitutional: Alert, in no distress. Neck: Supple, Full range of motion. No lymphadenopathy. No palpable thyroid masses. Respiratory: Clear to auscultation. Cardiovascular: S1 S2 regular. No murmurs. Psychiatric: Normal affect [facility] Medical History (Updated 06/03/25 @ 21:06 by RALPH Ng) Decreased GFR Pancreatic cancer CHF (congestive heart failure) Renal insufficiency Peripheral sensory neuropathy due to type 2 diabetes mellitus Type II diabetes mellitus History of transfusion of packed red blood cells Migraine History of placement of stent in LAD coronary artery Osteoporosis Hyperlipidemia Depression CAD (coronary artery disease) Sleep apnea On anticoagulant therapy TIA (transient ischemic attack) Myocardial infarction Obesity Diabetes Dyslipidemia History of colon cancer HTN (hypertension) Carotid stenosis, asymptomatic GERD (gastroesophageal reflux disease) Colon cancer Pre-op chest exam Lung cancer Pulmonary nodules Dyspnea COPD (chronic obstructive pulmonary disease) Pulmonary nodule Surgical History History of surgery History of incisional hernia repair (07/06/24) Hx of tonsillectomy Hx of tubal ligation History of dental surgery Hx of cardiac catheterization History of lobectomy of lung Family History Mother Stroke Diabetes Father Alcoholic cirrhosis of liver Social History Household Members: None Housing: House Are you a primary complex care nurse practitioner to a significant other at home: No Do you presently have visiting nurse or other home services: No Patient Tobacco Use Status: Former Tobacco user Tobacco use type: Cigarette Years Smoked: 20+ Years Second Hand Smoke Exposure: No service: No Physical Exam Vital Signs: Last Vital Signs Pulse 75 07/06/25 13:54 BP 100/68 07/06/25 13:54 Pulse Ox 97 07/06/25 13:54 Oxygen Delivery Method Room Air 07/06/25 13:54 BMI result Body Mass Index 26.9 Office Procedures Glucose Monitoring Details Details: See HPI 41974 - Glucose monitoring, continuous-physician I&R Procedure code (CPT) selection complete Results Reviewed Results Reviewed: Laboratory Last Values Glucose (Clinic) 329 mg/dL (60-115) H 07/06/25 14:05 Laboratory Tests 05/06/24 05/13/24 23:31 11:56 Plt Count 241 Creatinine 1.13 1.10 Estimated GFR 47 49 AST 17 ALT 21 Laboratory Tests 01/26/25 02/16/25 13:14 10:48 Creatinine 1.16 Estimated GFR 46 Hgb A1c (Clinic) 9.1 H C-Peptide 5.09 H Triglycerides 159 H Cholesterol 136 LDL Cholesterol, Calc 58 HDL Cholesterol 47 TSH 2.51 Assessment & Plan Assessment & Plan (1) Type II diabetes mellitus: Code(s): E11.9 - Type 2 diabetes mellitus without complications Category: Medical Qualifiers: Diabetes mellitus complication detail: with nephropathy Diabetes mellitus complication status: with kidney complications Diabetes mellitus longterm insulin use: without longterm use Qualified Code(s): E11.21 - Type 2 diabetes mellitus with diabetic nephropathy (2) Pancreatic cancer: Code(s): C25.9 - Malignant neoplasm of pancreas, unspecified Category: Medical Plan In summary this is a 75-year-old female with type 2 diabetes with micro and macrovascular complications and pancreatic cancer who underwent tumor resection and splenectomy and is currently on chemotherapy and steroids. Remain off GLP 1 due to risk of pancreatitis. Increase Tresiba to 18 units nightly. Increase lispro sliding scale and administer 15 minutes before meals: <120 0 units 121-150 10 units 151-200 14 unit 201-250 16 units 251-300 18 units 301-350 20 units 351-400 22 units >400 24 units and call the office If you experience low blood sugar (under 70), treat this by eating a chewable fruit candy like skittles or jelly beans (about 8 pieces), 4 ounces (1/2 cup) of fruit juice (not diet), 1 tablespoon of honey or 4 glucose tablets. If your blood sugar is under 50, take double the amount of one of the above. Follow up in 2 weeks. Orders: Orders AMB Glucose Monitoring Today E11.9 - Type 2 diabetes mellitus without complications Medications: Discontinued blood-glucose meter (OneTouch Ultra2 Meter) Discontinued Reason: Doctor's Order As directed checks 3X/day 1 ea 0RF Patient Instructions: Increase Tresiba to 18 units at bedtime Sliding scale lispro and administer 15 minutes before meals: For all meals: <120 0 units 121-150 10 units 151-200 14 unit 201-250 16 units 251-300 18 units 301-350 20 units 351-400 22 units >400 24 units and call the office Coding Level of Care Code Est Pt Level 4 (12566) Diagnoses Type 2 diabetes mellitus with diabetic nephropathy, without long-term current use of insulin E11.21 Diabetes mellitus complication detail: with nephropathy Diabetes mellitus complication status: with kidney complications Diabetes mellitus termite treater helper insulin use: without termite treater helper use Pancreatic cancer C25.9 CPT Codes Details - CPT: 25862 - Glucose monitoring, continuous-physician I&R ([id number])
[2025-07-06 14:11] LABS: Glucose, Whole Blood 329 mg/dL (60-115)
--- OUTSIDE RECORDS SUMMARY | 2025-07-06 18:32 | XMS_ITS | Encounter Summary ---
Author Organization [facility] Address [address] [place] [address] Phone Care Team Providers Care Processing Operator Name Role Phone oHng Maddox MD Unavailable [phone] Pravin Landis MD Unavailable Johana Amador MD Unavailable [phone] Kym Carranza MD Primary Care Provide r Carmen Felix MD Unavailable [phone] Encounter Details Date Type Department Care Team (Late st Contact Info) Description 03/13/2022 Procedure [facility], [facility] [place] [address] [place] [address] Social History Tobacco Use Types [...] Care Team (Late st Contact Info) Description 12/28/2025 1:20 PM EDT Office Visit [facility] [address] [place] [address] [address]rd Floor, [address] [place] [address] Prince Freitas MD [address], [address] [place] [address] [email or web address] documented as of this encounter Visit Diagnoses Not on filedocumented in this encounter Care Teams Processing Operator Relationship Specialty Start Date End Date Kym Carranza MD [address] [place] [address] [address] [place] [address] PCP - General Internal Medicine 12/22/21 Hong Maddox MD [address] [place] [phone] [email or web address] Historical LMR Provider 07/04/17 Pravin Landis MD [address] [place] [id number] [email or web address] Primary Oncologist Medical Oncology 02/08/21 Johana Amador MD [address] [place] [id number] Referring Physician Gastroenterology 03/27/21 Carmen Felix MD [address] [place] [phone] [facility] Oncology 03/11/24 documented as of this encounter Additional Source Comments The information contained in this document represents components of the legal health record. It is not the complete legal health record.[facility]
--- OUTSIDE RECORDS SUMMARY | 2025-07-06 18:32 | XMS_ITS | Clinical Summary ---
Author Organization [facility] Address [address] [place] [address] Phone Care Team Providers Care Him Specialist Name Role Phone Jung Carranza MD Primary Care Provider [phone] Allergies Active Allergy Reactions Criticality Noted Date [...] and nightly). 120 each 01/13/20 25 Active nystatin (Nyamyc) 100,000 unit/gram powder APPLY [...] nausea or vomiting. 60 tablet 3 04/05/20 Active ondansetron ODT (ZOFRAN-ODT) 8 mg disintegrating tabletIndications: Malignant neoplasm of tail of pancreas (CMS/HCC V24, CMS/HCC V28) Dissolve 1 tablet (8 mg total) on top of the tongue every 8 (eight) hours if needed for nausea or vomiting. 20 tablet 11 03/29/20 25 025 amoxicillin-clavul anate (AUGMENTIN) 875-125 mg per tablet Take 1 tablet by mouth 2 (two) times a day for 7 days. 14 each 5 06/21/20 025 Active Problems Problem Noted Date Diagnosed Date Drug therapy 07/01/2025 Chemotherapy-induced peripheral neuropathy ([facility]/ [facility] V24) 05/24/2025 Transaminitis 04/26/2025 Anxiety 04/26/2025 Chemotherapy-induced fatigue 04/26/2025 Left upper quadrant abdominal pain 03/08/2025 Family history of pancreatic cancer 02/01/2025 Lung cancer ([facility] V24, [facility] V28) Overview (02/01/2025): s/p L lobectomy in 2004, R wedge resection 2009 TIA (transient ischemic attack) 01/19/2025 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 ([facility]/HCC V24, CMS/HCC V28) 12/22/2024 Cancer Staging:Pathologic stage from 01/07/2025:Stage IIA(pT3, pN0, cM0) - Signed by Carmen Felix MD on 02/02/2025 Malignant neoplasm of upper lobe of right lung (CMS/HCC V24, CMS/HCC V28) 07/01/2024 Malignant neoplasm of ascend ing colon (CMS/HCC V24, CMS/HCC V28) 02/21/2021 Asthma-COPD overlap syndrome (CMS/HCC V24, CMS/H CC V28) 11/06/2017 COPD (chronic obstructive pu lmonary disease) ([facility] V24, CMS/HCC V28) 11/06/2017 Gastroesophageal reflux 11/06/2017 Hiatal hernia 11/06/2017 Hyperlipidemia 11/06/2017 Pulmonary nodules 11/06/2017 Adenocarcinoma of lung ([facility] V24, [facility]/HCC V28 ) 06/01/2009 Osteoporosis 02/16/2009 Encounters Date Type Department Care Team Description 07/01/2025 11:51 AM EDT - 07/01/2025 11:59 PM EDT Hospital Encounter [address] [phone] Adenocarcinoma of right lung (CMS/HCC V24, CMS/HCC V28) (Primary Dx); Malignant neoplasm of ascending colon ([facility] V24, [facility] V28) Discharge Disposition: Home or Self Care 06/29/2025 8:27 AM EDT - 06/29/2025 11:59 PM EDT Hospital Encounter [address] [phone] Carmen Rodriguez MD Malignant neoplasm of tail of pancreas ([facility] V24, [facility] V28) (Primary Dx) Discharge Disposition: Home or Self Care 06/21/2025 11:45 AM EDT Office Visit [facility] Hematology Oncology [address] [place] [phone] Carmen Rodriguez MD Adenocarcinoma of right lung ([facility]/HCC V24, [facility]/HCC V28) (Primary Dx); Chemotherapy-induced peripheral neuropathy ([facility] V24); Malignant neoplasm of tail of pancreas ([facility]/HCC V24, [facility]/HCC V28); Age-related osteoporosis without current pathological fracture; Chemotherapy-induced fatigue; Anxiety 06/17/2025 11:54 AM EDT - 06/17/2025 11:59 PM EDT Hospital Encounter [address] [phone] Carmen Rodriguez MD Malignant neoplasm of tail of pancreas ([facility] V24, [facility] V28) (Primary Dx) Discharge Disposition: Home or Self Care 06/15/2025 8:18 AM EDT - 06/15/2025 11:59 PM EDT Hospital Encounter [facility] Infusion Center [address] [place] [phone] Carmen Rodriguez MD Malignant neoplasm of tail of pancreas ([facility]/HCC V24, CMS/HCC V28) (Primary Dx) Discharge Disposition: Home or Self Care 06/15/2025 Social Work [facility] [address] [place] [phone] Cy Salguero LMSW 06/07/2025 Telephone [facility] [address] [place] [phone] Emelina Glover RN 05/27/2025 12:58 PM EDT - 05/27/2025 11:59 PM EDT Hospital Encounter [facility] [address] [place] [phone] Carmen Rodriguez MD Malignant neoplasm of tail of pancreas ([facility]/HCC V24, [facility]/HCC V28) (Primary Dx) Discharge Disposition: Home or Self Care 05/25/2025 8:19 AM EDT - 05/25/2025 11:59 PM EDT Hospital Encounter [facility] [address] [place] [phone] Carmen Rodriguez MD Malignant neoplasm of tail of pancreas (CMS/HCC V24, CMS/HCC V28) (Primary Dx); Adenocarcinoma of right lung (CMS/HCC V24, CMS/HCC V28); Malignant neoplasm of ascending colon (CMS/HCC V24, CMS/HCC V28) Discharge Disposition: Home or Self Care 05/24/2025 8:30 AM EDT Office Visit [facility] Hematology Oncology [address] [place] [phone] Carmen Rodriguez MD Malignant neoplasm of tail of pancreas (CMS/HCC V24, CMS/HCC V28) (Primary Dx); Transaminitis; Anxiety; Chemotherapy-induced fatigue; Adenocarcinoma of right lung (CMS/HCC V24, CMS/HCC V28); Hiatal hernia; Chemotherapy-induced peripheral neuropathy (CMS/HCC V24) 05/19/2025 9:45 AM EDT Office Visit General Surgery [facility] [address] [place] [phone] Diogenes Medrano MD Malignant neoplasm of body of pancreas (CMS/HCC V24, CMS/HCC V28) (Primary Dx) 05/13/2025 11:48 AM EDT - 05/13/2025 11:59 PM EDT Hospital Encounter [facility] [address] [place] [phone] Carmen Rodriguez MD Malignant neoplasm of tail of pancreas (CMS/HCC V24, CMS/HCC V28) (Primary Dx); Adenocarcinoma of right lung (CMS/HCC V24, CMS/HCC V28) Discharge Disposition: Home or Self Care 05/11/2025 8:30 AM EDT - 05/11/2025 11:59 PM EDT Hospital Encounter [facility] [address] [place] [phone] Carmen Rodriguez MD Malignant neoplasm of tail of pancreas (CMS/HCC V24, CMS/HCC V28) (Primary Dx) Discharge Disposition: Home or Self Care 05/10/2025 3:15 PM EDT Office Visit [facility] Hematology Oncology [address] [place] [phone] Carmen Rodriguez MD Malignant neoplasm of tail of pancreas (CMS/HCC V24, CMS/HCC V28) (Primary Dx) 05/10/2025 Telephone [facility] [address] [place] [phone] Arminda Glover RN 04/29/2025 12:02 PM EDT - 04/29/2025 11:59 PM EDT Hospital Encounter [facility] [address] [place] [phone] Carmen Rodriguez MD Malignant neoplasm of tail of pancreas (CMS/HCC V24, CMS/HCC V28) (Primary Dx) Discharge Disposition: Home or Self Care 04/27/2025 8:20 AM EDT - 04/27/2025 11:59 PM EDT Hospital Encounter [facility] [address] [place] [phone] Carmen Rodriguez MD Malignant neoplasm of tail of pancreas (CMS/HCC V24, CMS/HCC V28) (Primary Dx) Discharge Disposition: Home or Self Care 04/26/2025 3:15 PM EDT Office Visit [facility] Hematology Oncology [address] [place] [phone] Carmen Rodriguez MD Malignant neoplasm of tail of pancreas (CMS/HCC V24, CMS/HCC V28) (Primary Dx); Transaminitis; Anxiety; Chemotherapy-induced fatigue 04/20/2025 Telephone [facility] Radiation Oncology [address] [place] [phone] 04/19/2025 Telephone [facility] [address] [place] [phone] Nuria Muñoz RN 04/15/2025 11:23 AM EDT - 04/15/2025 11:59 PM EDT Hospital Encounter [facility] [address] [place] [phone] Carmen Rodriguez MD Malignant neoplasm of tail of pancreas (CMS/HCC V24, CMS/HCC V28) (Primary Dx) Discharge Disposition: Home or Self Care 04/12/2025 2:30 PM EDT Office Visit [facility] Hematology Oncology [address] [place] [phone] Vannessa Palma PA Muscle cramps (Primary Dx); Malignant neoplasm of tail of pancreas (CMS/HCC V24, CMS/HCC V28); Malignant neoplasm of ascending colon (CMS/HCC V24, CMS/HCC V28); Adenocarcinoma of right lung ([facility] V24, [facility] V28) 04/07/2025 1:21 PM EDT - 04/07/2025 11:59 PM EDT Hospital Encounter [facility] [address] [place] [phone] Carmen Rodriguez MD Malignant neoplasm of tail of pancreas ([facility] V24, [facility] V28) (Primary Dx); Adenocarcinoma of right lung ([facility] V24, [facility] V28) Discharge Disposition: Home or Self Care 04/05/2025 8:19 AM EDT - 04/05/2025 11:59 PM EDT Hospital Encounter [facility] [address] [place] [phone] Carmen Rodriguez MD Malignant neoplasm of tail of pancreas ([facility] V24, [facility] V28) (Primary Dx) Discharge Disposition: Home or Self Care 04/05/2025 Social Work [facility] [address] [place] [phone] Cy Salguero LMSW from Last 3 Months Immunizations Immunization Administration Dates Next Due HiB PRP-T conjugate [...] Comments Asthma 11/06/2017 DX:Asthma Asthma-COPD overlap syndrome ([facility] V24, [facility] V28) 11/06/2017 DX:Asthma-COPD overlap syndr ome (HCC) COPD (chronic obstructive pu lmonary disease) ([facility] V24, [facility] V28) 11/06/2017 DX:COPD (chronic o bstructive pulmonary disease) (HCC) Gastroesophageal reflux 11/06/2017 DX:Gastr oesophageal reflux Hiatal hernia 11/06/2017 DX:Hiatal hernia History of lung cancer 11/06/2017 DX:Histor y of lung cancer; COMMENT: X2, s/p resection Hyperlipidemia 11/06/2017 DX:Hyperlipidemi a Pulmonary nodules 11/06/2017 DX:Pulmonary n odules Lung cancer ([facility] V24, [facility] V28) DX:Lung cancer (HCC) COPD (chronic obstructive pu lmonary disease) ([facility] V24, [facility] V28) DX:COPD (chronic o bstructive pulmonary disease) (HCC) GERD (gastroesophageal reflux disease) DX:GERD (gastroesophageal reflux disease) Colon cancer ([facility] V24, [facility] V28) DX:Colon cancer (HCC) Diabetes mellitus ([facility] V 24, [facility] V28) DX:Diabetes mellitus ([facility]) PR, old Heart disease Shortness of breath Liver [...] Sign Reading Time Taken Comments Blood Pressure 82/62 06/29/2025 8:33 AM EDT Pulse 102 06/29/2025 8:33 AM EDT Temperature 36.3 C (97.4 F) 06/29/2025 8:33 AM EDT Respiratory Rate 18 06/15/2025 9:03 AM EDT Oxygen Saturation 96% 06/29/2025 8:33 AM EDT Inhaled Oxygen Concentration - - Weight 72.4 kg (159 lb 9.6 oz) 06/29/2025 8:33 A M EDT Height 162.6 cm (5' 4.02 ) 05/19/2025 9:44 AM ED T Body Mass Index 27.38 05/19/2025 9:44 AM EDT Plan of Treatment Upcoming Encounters Date Type Department Care Team (Late st Contact Info) Description 07/13/2025 8:30 AM EDT Appointment [facility] Infusion Center [address] [phone] 07/19/2025 3:15 PM EST Office Visit [facility] Hematology Oncology [address] [place] [phone] Thiago-Carmen Ray MD [address] [place] [phone] Health Maintenance Due Date Last Done Comments [...] Blood Sugar Control Test (HGBA1C) 07/22/2025 01/19/2025 Diabetes: Annual GFR (Glomerular Filtration Rate) 06/28/2026 06/28/2025, 06/21/2025, 06/14/2025, Additional history exists Hypertension/CHF/CAD Annual BMP Blood Test 06/28/2026 06/28/2025, 06/21/2025, 06/14/2025, Additional history exists Falls Risk Assessment 06/29/2026 06/29/2025 Cholesterol Screening (Lipid Panel) 01/19/2030 01/19/2025, 03/09/2024 [...] this topic Medical Devices Implanted Type Area Corn Sheller Device Identifier Shelf Expiration Date Model / Serial / Lot Port Pwr Slim Poly 6f Sandra Inte Attach - [id number] Implanted:Qty: 1 on 03/23/2025 by Blake Beaulieu MD at [facility] Central/Yaneth pheral Catheters and Ports Right: Chest Wall CR [employer] [id number] 11/13/2025 [id number] / / [id number] Procedures Procedure Name Priority Date/Time Associated Diagnosis Comments MANUAL DIFFERENTIAL - SYSMEX WAM Routine 06/28/2025 10:22 AM EDT Malignant neoplasm of tail of pancreas (CMS/HCC V24, CMS/HCC V28) CBC WITH AUTO DIFFERENTIAL Routine 06/28/2025 10:22 AM EDT Malignant neoplasm of tail of pancreas (CMS/HCC V24, CMS/HCC V28) COMPREHENSIVE METABOLIC PANEL Routine 06/28/2025 10:22 AM EDT Malignant neoplasm of tail of pancreas (CMS/HCC V24, CMS/HCC V28) CBC AND DIFFERENTIAL Routine 06/28/2025 10:22 AM EDT Malignant neoplasm of tail of pancreas (CMS/HCC V24, CMS/HCC V28) MANUAL DIFFERENTIAL - SYSMEX WAM Routine 06/21/2025 11:03 AM EDT Malignant neoplasm of tail of pancreas (CMS/HCC V24, CMS/HCC V28) CBC WITH AUTO DIFFERENTIAL Routine 06/21/2025 11:03 AM EDT Malignant neoplasm of tail of pancreas (CMS/HCC V24, CMS/HCC V28) COMPREHENSIVE METABOLIC PANEL Routine 06/21/2025 11:03 AM EDT Malignant neoplasm of tail of pancreas (CMS/HCC V24, CMS/HCC V28) CBC AND DIFFERENTIAL Routine 06/21/2025 11:03 AM EDT Malignant neoplasm of tail of pancreas (CMS/HCC V24, CMS/HCC V28) CANCER ANTIGEN 19-9 Routine 06/21/2025 1 1:03 AM EDT Malignant neoplasm of tail of pancreas (CMS/HCC V24, CMS/HCC V28) CBC WITH AUTO DIFFERENTIAL Routine 06/14/2025 9:10 AM EDT Malignant neoplasm of tail of pancreas (CMS/HCC V24, CMS/HCC V28) COMPREHENSIVE METABOLIC PANEL Routine 06/14/2025 9:10 AM EDT Malignant neoplasm of tail of pancreas (CMS/HCC V24, CMS/HCC V28) CBC AND DIFFERENTIAL Routine 06/14/2025 9:10 AM EDT Malignant neoplasm of tail of pancreas (CMS/HCC V24, CMS/HCC V28) CBC WITH AUTO DIFFERENTIAL Routine 06/07/2025 9:08 AM EDT Malignant neoplasm of tail of pancreas (CMS/HCC V24, CMS/HCC V28) COMPREHENSIVE METABOLIC PANEL Routine 06/07/2025 9:08 AM EDT Malignant neoplasm of tail of pancreas (CMS/HCC V24, CMS/HCC V28) CBC AND DIFFERENTIAL Routine 06/07/2025 9:08 AM EDT Malignant neoplasm of tail of pancreas (CMS/HCC V24, CMS/HCC V28) CBC WITH AUTO DIFFERENTIAL Routine 05/24/2025 8:56 [...] Routine 04/12/2025 3:34 PM EDT Muscle cramps HEMOGLOBIN A1C Add-On 01/19/2025 3:51 AM EDT LIPID PANEL WITH REFLEX TO DIRECT LDL Add-On 01/19/2025 3:51 AM EDT COLONOSCOPY Routine 12/17/2024 10:44 AM EDT Personal history of colon cancer from Last 3 Months or Most Recently Relevant to Health Maintenance Results * (ABNORMAL) Manual differential (06/28/2025 10:22 AM EDT) Only the most recent of2 resultswithin the time period is included. Neutrophils % 80.0 % LAB HEMETOLOGY METHOD 06/28/2025 1:[address] [facility] Lymphocytes % 9.0 % LAB HEMETOLOGY METHOD 06/28/2025 1:[address] [facility] Monocytes % 9.0 % LAB HEMETOLOGY METHOD 06/28/2025 1:[address] [facility] Eosinophils % 2.0 % LAB HEMETOLOGY METHOD 06/28/2025 1:[address] [facility] Basophils % 1.0 % LAB HEMETOLOGY METHOD 06/28/2025 1:[address] [facility] Neutrophils Absolute Manual 12.72(H) 1.50 - 7.00 K/mcL LAB HEMETOLOGY METHOD 06/28/2025 1:[address] [facility] Lymphocytes Absolute 1.43 1.00 - 5.00 K/mcL LAB HEMETOLOGY METHOD 06/28/2025 1:[address] [facility] Monocytes Absolute Manual 1.43(H) 0.20 - 1.00 K/mcL LAB HEMETOLOGY METHOD 06/28/2025 1:[address] [facility] Eosinophils Absolute Manual 0.32 0.00 - 0.50 K/mcL LAB HEMETOLOGY METHOD 06/28/2025 1:05 PM EDT [facility] Basophils Absolute Manual 0.16 0.00 - 0.20 K/mcL LAB HEMETOLOGY METHOD 06/28/2025 1:05 PM EDT [facility] Rbc Morphology Present( A) Consistent with indices, Normal for [place] LAB HEMETOLOGY METHOD 06/28/2025 1:05 PM EDT [facility] Platelet Morphology - WAM See Note(A) Normal [facility] 06/28[facility]25 1:05 PM EDT [facility] Comment:PLT: Normal Ovalocytes Present 5 - 10%(A) (none) [facility] 06/28/2025 1:05 PM EDT [facility] Schistocytes Present < 5%(A) (none) LAB HEMETOLOGY METHOD 06/28/2025 1:05 PM EDT [facility] Toxic Granules Present Present( A) (none) [facility] 06/28/2025 1:05 PM EDT [facility] Blood Venous blood specimen / Unknown Venipuncture / Unknown 06/28/2025 10:22 AM EDT 06/28/2025 11:36 AM EDT us Subramony Isidro STORY LAB BLOOD ORDERABLE S Final Result [facility] [address] [place] [address], * (ABNORMAL) CBC auto differential (06/28/2025 10:22 AM EDT) Only the most recent of9 resultswithin the time period is included. WBC 15.9(H) 4.8 - 10.8 K/mcL LAB HEMETOLOGY METHOD 06/28/2025 1:[address] [facility] RBC 4.10 3.80 - 4.80 M/mcL LAB HEMETOLOGY METHOD 06/28/2025 1:[address] [facility] Hemoglobin 12.7 11.5 - 16.0 g/dL LAB HEMETOLOGY METHOD 06/28/2025 1:[address] [facility] Hematocrit 39.2 35.0 - 47.0 % LAB HEMETOLOGY METHOD 06/28/2025 1:[address] [facility] MCV 95.1 79.0 - 98.0 FL LAB HEMETOLOGY METHOD 06/28/2025 1:[address] [facility] MCH 30.8 27.0 - 32.0 pcg LAB HEMETOLOGY METHOD 06/28/2025 1:[address] [facility] MCHC 32.4 32.0 - 37.0 g/dL LAB HEMETOLOGY METHOD 06/28/2025 1:[address] [facility] RDW 17.7(H) 11.0 - 15.0 % LAB HEMETOLOGY METHOD 06/28/2025 1:[address] [facility] Platelets 331 130 - 400 K/mcL LAB HEMETOLOGY METHOD 06/28/2025 1:[address] [facility] MPV 10.7 7.0 - 11.0 FL LAB HEMETOLOGY METHOD 06/28/2025 1:[address] [facility] NRBC 18.2(H) <1.0 % LAB HEMETOLOGY METHOD 06/28/2025 1:[address] [facility] NRBC Absolute 2.90(H) <0.10 K/mcL LAB HEMETOLOGY METHOD 06/28/2025 1:[address] [facility] Blood Venous blood specimen / Unknown Venipuncture / Unknown 06/28/2025 10:22 AM EDT 06/28/2025 11:36 AM EDT Carmen Felix MD LAB BLOOD ORDERABLE S Final Result [facility] [address] [place] [address], [place] [phone] * (ABNORMAL) Comprehensive metabolic panel (06/28/2025 10:22 AM EDT) Only the most recent of8 resultswithin the time period is included. Sodium 140 133 - 145 mmol/L LAB CHEMISTRY METHOD 06/28/2025 2:45 PM T [facility] Potassium 4.2 3.5 - 5.5 mmol/L LAB CHEMISTRY METHOD 06/28/2025 2:[address] [facility] Chloride 108 96 - 110 mmol/L LAB CHEMISTRY METHOD 06/28/2025 2:[address] [facility] CO2 23 21 - 32 mmol/L LAB CHEMISTRY METHOD 06/28/2025 2:[address] [facility] Anion Gap 9 3 - 11 LAB CHEMISTRY METHOD 06/28/2025 2:[address] [facility] Glucose 276(H) 70 - 100 mg/dL LAB CHEMISTRY METHOD 06/28/2025 2:[address] [facility] BUN 23 5 - 25 mg/dL LAB CHEMISTRY METHOD 06/28/2025 2:45 PM T [facility] Creatinine 0.95 0.50 - 1.10 mg/dL LAB CHEMISTRY METHOD 06/28/2025 2:45 PM T [facility] eGFR 63 >=60 mL/min/1. 73m2 LAB CHEMISTRY METHOD 06/28/2025 2:[address] [facility] Comment:Calculation based on the Chronic Kidney Disease Epidemiology Collaboration (CKD-EPI) equation refit without adjustment for race. BUN/Creatinine Ratio 24.2 LAB CHEMISTRY METHOD 06/28/2025 2:45 PM EDT [facility] Calcium 9.2 8.5 - 10.5 mg/dL LAB CHEMISTRY METHOD 06/28/2025 2:45 PM EDT [facility] AST (SGOT) 34 10 - 42 unit/L LAB CHEMISTRY METHOD 06/28/2025 2:45 PM EDT [facility] ALT (SGPT) 56 10 - 60 unit/L LAB CHEMISTRY METHOD 06/28/2025 2:45 PM EDT [facility] Alkaline Phosphatase 117 42 - 121 unit/L LAB CHEMISTRY METHOD 06/28/2025 2:45 PM EDT [facility] Total Protein 5.8(L) 6.0 - 8.0 g/dL LAB CHEMISTRY METHOD 06/28/2025 2:45 PM EDT [facility] Albumin 3.0(L) 3.2 - 5.0 g/dL LAB CHEMISTRY METHOD 06/28/2025 2:45 PM EDT [facility] Total Bilirubin 0.7 0.0 - 1.4 mg/dL LAB CHEMISTRY METHOD 06/28/2025 2:45 PM EDT [facility] Blood Venous blood specimen / Unknown Venipuncture / Unknown 06/28/2025 10:22 AM EDT 06/28/2025 11:36 AM EDT us Subramony Isidro STORY LAB BLOOD ORDERABLE S Final Result [facility] [address] [place] [address], * (ABNORMAL) Cancer antigen 19-9 (06/21/2025 11:03 AM EDT) Only the most recent of2 resultswithin the time period is included. CA 19-9 80.2(H) <=35 U/mL 06/23/2025 2:12 PM EDT [facility] Comment: The Siemens Advia Centaur CA199 Chemiluminescent Immunoassay is used. Results obtained with different assay methods or kits cannot be used interchangeably. Results cannot be interpreted as absolute evidence of the presence or absence of malignant disease. Test performed at [facility], [address] , [place] [address] Sangita Sharma MD, PhD - [employer] Blood Venous blood specimen / Unknown Venipuncture / Unknown 06/21/2025 11:03 AM EDT 06/21/2025 11:40 AM EDT Carmen Felix MD LAB BLOOD ORDERABLE S Final Result Performing Organization Address [facility] [[email or web address]] Co de Phone Number [facility] [address] [place] [address] * CEA (04/26/2025 3:07 PM EDT) CEA 2.8 0.0 - 5.0 ng/mL LAB CHEMISTRY METHOD 04/26/2025 6:16 PM EDT [facility] Blood Venous blood specimen / Unknown Venipuncture / Unknown 04/26/2025 3:07 PM EDT 04/26/2025 4:34 PM EDT Narrative [facility] - 04/26/2025 6:16 PM EDT The Siemens Advia Centaur Chemiluminescent Immunoassay is used. Results obtained with different assay methods or kits cannot be used interchangeably. Results cannot be interpreted as absolute evidence of the presence or absence of malignant disease. Carmen Felix MD LAB BLOOD ORDERABLE S Final Result Performing Organization Address City/[facility]/ZIP Co de Phone Number [facility] [address] [place] [address], * Magnesium (04/12/2025 3:34 PM EDT) Magnesium 2.0 1.9 - 2.6 mg/dL LAB CHEMISTRY METHOD 04/12/2025 5:35 PM EDT [facility] Blood Venous blood specimen / Unknown Venipuncture / Unknown 04/12/2025 3:34 PM EDT 04/12/2025 4:32 PM EDT us Vannessa ROSAS LAB BLOOD ORDERABLES Final Re sult [facility] [address] [place] [address], [place] [phone] * (ABNORMAL) Basic metabolic panel (04/12/2025 3:34 PM EDT) Sodium 137 133 - 145 mmol/L LAB CHEMISTRY METHOD 04/12/2025 5:[address] [facility] Potassium 4.5 3.5 - 5.5 mmol/L LAB CHEMISTRY METHOD 04/12/2025 5:[address] [facility] Chloride 105 96 - 110 mmol/L LAB CHEMISTRY METHOD 04/12/2025 5:[address] [facility] CO2 29 21 - 32 mmol/L LAB CHEMISTRY METHOD 04/12/2025 5:[address] [facility] Anion Gap 3 3 - 11 LAB CHEMISTRY METHOD 04/12/2025 5:[address] [facility] Glucose 201(H) 70 - 100 mg/dL LAB CHEMISTRY METHOD 04/12/2025 5:35 PM T [facility] BUN 33(H) 5 - 25 mg/dL LAB CHEMISTRY METHOD 04/12/2025 5:[address] [facility] Creatinine 1.29(H) 0.50 - 1.10 mg/dL LAB CHEMISTRY METHOD 04/12/2025 5:[address] [facility] eGFR 43(L) >=60 mL/min/1. 73m2 LAB CHEMISTRY METHOD 04/12/2025 5:35 PM EDT [facility] Comment:Calculation based on the Chronic Kidney Disease Epidemiology Collaboration (CKD-EPI) equation refit without adjustment for race. BUN/Creatinine Ratio 25.6 LAB CHEMISTRY METHOD 04/12/2025 5:35 PM EDT [facility] Calcium 9.6 8.5 - 10.5 mg/dL LAB CHEMISTRY METHOD 04/12/2025 5:35 PM EDT [facility] Blood Venous blood specimen / Unknown Venipuncture / Unknown 04/12/2025 3:34 PM EDT 04/12/2025 4:32 PM EDT us Vannessa ROSAS LAB BLOOD ORDERABLES Final Re sult [facility] [address] [place] [address], [place] [phone] * (ABNORMAL) Lipid panel with reflex to direct LDL (01/19/2025 3:51 AM EDT) Cholesterol 126 0 - 200 mg/dL LAB CHEMISTRY METHOD 01/19/2025 3:[address] [facility] Triglycerides 153(H) 0 - 150 mg/dL LAB CHEMISTRY METHOD 01/19/2025 3:36 PM T [facility] HDL 50 >=40 mg/dL LAB CHEMISTRY METHOD 01/19/2025 3:36 PM EDT [facility] LDL Calculated 45 0 - 100 mg/dL LAB CHEMISTRY METHOD 01/19/2025 3:36 PM EDT [facility] VLDL Cholesterol Russell 30.6 mg/dL LAB CHEMISTRY METHOD 01/19/2025 3:36 PM EDT [facility] Non HDL Chol. (LDL+VLDL) 76 <145 mg/dL LAB CHEMISTRY METHOD 01/19/2025 3:36 PM EDT [facility] Chol/HDL Ratio 2.5 0.0 - 4.4 LAB CHEMISTRY METHOD 01/19/2025 3:36 PM EDT [facility] Blood Venous blood specimen / Unknown Venipuncture / Unknown 01/19/2025 3:51 AM EDT 01/19/2025 4:08 AM EDT Annabelle ROSAS LAB BLOOD ORDERABLES Final Resul t Performing Organization Address [facility]/ZIP Co de Phone Number [facility] [address] [place] [address], [place] [phone] * (ABNORMAL) Hemoglobin A1c (01/19/2025 3:51 AM EDT) Hemoglobin A1C 8.9(H) <6.5 % LAB CHEMISTRY METHOD 01/19/2025 1:38 PM EDT [facility] Mean Bld Glu Estim. 209 mg/dL LAB CHEMISTRY METHOD 01/19/2025 1:38 PM EDT [facility] Blood Venous blood specimen / Unknown Venipuncture / Unknown 01/19/2025 3:51 AM EDT 01/19/2025 4:08 AM EDT us Annabelle ROSAS LAB BLOOD ORDERABLES Final Resul t Performing Organization Address [facility] de Phone Number [facility] [address] [place] [address], [place] [phone] * COLONOSCOPY Anesthesia - MAC; RUST ENDOSCOPY (12/17/2024 10:44 AM EDT) Anatomical Region Laterality Modality Endoscopy 12/17/2024 10:2 8 AM EDT Impressions 12/17/2024 10:46 AM EDT - Patent xzpf-xd-mfiz ileo-colonic anastomosis, characterized by healthy appearing mucosa. - Diverticulosis in the sigmoid colon. - Internal hemorrhoids. - The examination was otherwise normal. - No specimens collected. Recommendation: - Discharge patient to home. - Repeat colonoscopy in 5 years for surveillance. Narrative 12/17/2024 10:46 AM EDT [facility] Patient Name: Corin Alvarenga Procedure Date: [...] verified by the physician, the nurse, the logistics operations director and the cable television line technician in the pre-procedure area in the [...] normal. There was evidence of a prior bnqh-wo-iyli ileo-colonic anastomosis in the ascending colon. This [...] in this report are preliminary and upon log rider review may be revised to meet current compliance requirements. Valente Camarena MD 12/17/2024 10:46:21 AM This report has been signed electronically.Valente Camarena MD Number of Addenda: 0 Note Initiated On: 12/17/2024 10:28 AM Scope Withdrawal Time: 0 hours 6 minutes 55 seconds Scope In: 10:35:31 AM Scope Out: 10:45:39 AM Endoscopy Department at [facility] - [address] [place] [phone] Procedure Note Valente Camarena MD - 12/17/2024 [facility] Patient Name: Corin Alvarenga Procedure Date: [...] the physician, the nurse, theanesthetist and the cable television line technician in the pre-procedure area in the [...] normal. There was evidence of a prior abdg-is-vzjj ileo-colonic anastomosis in the ascending colon.This was [...] in this report are preliminary and upon log rider reviewmay be revised to meet current compliance requirements. Valente Camarena MD 12/17/2024 10:46:21 AM This report has been signed electronically.Valente Camarena MD Number of Addenda: 0 Note Initiated On: 12/17/2024 10:28 AM Scope Withdrawal Time: 0 hours 6 minutes 55 seconds Scope In: 10:35:31 AM Scope Out: 10:45:39 AM Endoscopy Department at [facility] - [address] [place] [phone] IMPRESSION: - Patent lapj-ss-zyux ileo-colonic anastomosis, characterized by healthy appearing mucosa. - Diverticulosis in the sigmoid colon. - Internal hemorrhoids. - The examination was otherwise normal. - No specimens collected. Recommendation: - Discharge patient to home. - Repeat colonoscopy in 5 years for surveillance. Valente Camarena MD GI~PROCEDURE ORDERABLES Fin al Result from Last 3 Months or Most Recently Relevant to Health Maintenance Insurance [place] [address] Advance Directives * Full Code - Default [...] currently active code status orders. Care Teams Him Specialist Relationship Specialty Start Date End Date Jung Carranza MD [address] [facility] [address] [place], [place] PCP - General Internal Medicine 12/08/18
--- OUTSIDE RECORDS SUMMARY | 2025-07-06 18:32 | XMS_ITS ---
Author Organization [facility] Address [address] [place] [address] Phone Care Team Providers Care Slat Basket Maker Helper Name Role Phone Jung Carranza MD Primary Care Provider [phone] Active Problems Problem Noted Date Diagnosed Date Drug therapy 07/01/2025 Chemotherapy-induced peripheral neuropathy ([facility] V24) 05/24/2025 Transaminitis 04/26/2025 Anxiety 04/26/2025 Chemotherapy-induced fatigue 04/26/2025 Left upper quadrant abdominal pain 03/08/2025 Family history of pancreatic cancer 02/01/2025 Lung cancer ([facility] V24, [facility] V28) Overview (02/01/2025): s/p L lobectomy in 2004, R wedge resection 2009 TIA (transient ischemic attack) 01/19/2025 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 ([facility] V24, [facility] V28) 12/22/2024 Cancer Staging:Pathologic stage from 01/07/2025:Stage IIA(pT3, pN0, cM0) - Signed by Carmen Felix MD on 02/02/2025 Malignant neoplasm of upper lobe of right lung ([facility] V24, [facility]/HCC V28) 07/01/2024 Malignant neoplasm of ascend ing colon ([facility]/HCC V24, [facility]/HCC V28) 02/21/2021 Asthma-COPD overlap syndrome ([facility] V24, [facility]/ [facility] V28) 11/06/2017 COPD (chronic obstructive pu lmonary disease) ([place] V24, [facility] V28) 11/06/2017 Gastroesophageal reflux 11/06/2017 Hiatal hernia 11/06/2017 Hyperlipidemia 11/06/2017 Pulmonary nodules 11/06/2017 Adenocarcinoma of lung ([place] V24, [facility] V28 ) 06/01/2009 Osteoporosis 02/16/2009 Current Treatment and Therapy Plans FOLFIRINOX ( Fluorouracil Continuous Infusion / Leucovorin / Irinotecan / OXALIplatin )* Plan Start Date:04/04/2025 Plan Provider:Carmen Felix MD Linked Problems 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 ([place] V24, [place] V28)Drug therapy Treatment Medications Current Day (Day 1 , Cycle 7 - Planned for 07/13/2025) Next Day (Day 3, Cycle 7 - Planned for 07/15/2025) 5-FU (ADRUCIL) chemo infusio n 100 mL - for home use solutionfluorouracil (ADRUCIL)irinotecan (CAMPTOSAR) chemo IVPBleucovorinleucovorin IVPB in D5W (350 mg vial)OXALIplatin (ELOXATIN)OXALIplatin (ELOXATIN) chemo infusion fluorouracil (ADRUCIL) 2,550 mg in sodium chloride 0.9 % 100 mL chemo infusionfluorouracil (ADRUCIL) chemo injection 450 mgirinotecan (CAMPTOSAR) 190 mg in dextrose 259.5 mL chemo IVPBleucovorin 450 mg in dextrose 272.5 mL IVPBOXALIplatin (ELOXATIN) 90 mg in dextrose 268 mL chemo infusion No medications scheduled. HYDRATION AND ELECTROLYTES* Plan Start Date:04/15/2025 Plan Provider:Carmen Felix MD Linked Problems 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 ([place] V24, [place] V28) Treatment Medications No medications scheduled. Past Treatment and Therapy Plans No past plan information found. Lifetime Dose Tracking * Chemical Lifetime Dose Automatic Entry Manual Entr y Fluoro Time 1 minutes 1 minutes 0 minutes Air Kerma 7 mGy 7 mGy 0 mGy
--- OUTSIDE RECORDS SUMMARY | 2025-07-06 18:32 | XMS_ITS | Clinical Summary ---
Author Organization [facility] Address [address] [place] [address] Care Team Providers Care Laboratory Development Technician Name Role Phone Jung Carranza MD Primary Care Provider [phone] Allergies Active Allergy Reactions Criticality Noted Date [...] Assessment 2015 Osteoporosis Screening (DEXA Scan) 2015 RSV Adult > 60+ Yrs or (1 - 1-dose 75+ series) 2025 COVID-19 Vaccine ( season) 2025 02/06/2022, 08/26/2021, 12/30/2020, Additional history exists Influenza Vaccine (#1) 2025 2, 06/27/2021, 06/16/2021, Additional history exists Pneumococcal Vaccine Completed 07/01/2019, 07/14/20 18 Hepatitis B Vaccines Aged Out No long er eligible based on patient's age to complete this topic RSV Ped < 20 months Aged Out No longe r eligible based on patient's age to complete this topic Care Teams Laboratory Development Technician Relationship Specialty Start Date End Date Bashiruddin, Jung, MD [address] [facility] [address] [place] [address] PCP - General Internal Medicine 02/12/24
--- OUTSIDE RECORDS SUMMARY | 2025-07-06 18:32 | XMS_ITS | Encounter Summary ---
Author Organization [facility] Address [address] [place] [address] Phone Care Team Providers Care Learning Coordinator Name Role Phone Evangelist Gabriel MD Unavailable [phone] Vignesh Farias MD Unavailable [phone] Dixon Quiñones NP Unavailable [phone] Hong Maddox MD Unavailable [phone] Kym Carranza MD Primary Care Provide r Self-Referred, Patient Unavailable Unavailab Pravin Leung MD Unavailable [phone] Johana Amador MD Unavailable [phone] Johana Amador MD Primary Care Provid er Kym Carranza MD Primary Care Provide r Carmen Felix MD Unavailable [phone] Encounter Details Date Type Department Care Team (Late st Contact Info) Description 12/20/2020 Procedure Pass [facility] Periop [address] [place], [place] [id number] Social History Tobacco Use Types Packs/Day Years [...] 7:00 PM EDT Derrick Palacio RN * [place] Suicide Severity Rating Scale (Screener/Recent Self-Report) Question Answer Date of Assessment Author 1. Wish to be (Past 1 Month) No 021 7:00 PM EDT Clemente Palacio, SHAWN 2. Non-Specific Active Suici tess Thoughts (Past 1 Month) No 12/20/2020 7:00 PM EDT Clemente Palacio RN 6. Suicidal Behavior (Lifetime) No 7:00 PM EDT Clemente Palacio RN documented as of this encounter Plan of Treatment Upcoming Encounters Date Type Department Care Team (Late st Contact Info) Description 12/28/2025 1:20 PM EDT Office Visit [facility] [address] [place] [address] 3rd [facility], [address] [place] [address] Prince Freitas MD [address] [place] [address] [email or web address] documented as of this encounter Visit Diagnoses Not on filedocumented in this encounter Care Teams Learning Coordinator Relationship Specialty Start Date End Date Kym Carranza MD [address] [place] [address] [address] [place] [address] PCP - General Internal Medicine 11/28/20 05/04/21 Johana Amador MD [address] [place] [address] PCP - General Gastroenterology 05/05/21 12/21/21 Kym Carranza MD [address] [address] PCP - General Internal Medicine 12/22/21 Evangelist Gabriel MD [address] [place] [address], [address] [address] [email or web address] Historical LMR Provider 07/04/17 09/23/21 Vignesh Farias MD [address] [place] [address] [email or web address] Historical LMR Provider 07/04/17 09/23/21 Dixon Quiñones NP [address] [place] [phone] Historical LMR Provider 07/04/17 2 Hong Maddox MD [address] [place] [address] [email or web address] Historical LMR Provider 07/04/17 Self-Referred, Patient Referring Physician 11/28/20 Pravin Landis MD [address] [place] [address] [email or web address] Primary Oncologist Medical Oncology 02/08/21 Johana Amador MD [address] [place] [id number] Referring Physician Gastroenterology 03/27/21 Carmen Felix MD [address] [place] [phone] [email or web address] Medical Oncology 03/11/24 documented as of this encounter Additional Source Comments The information contained in this document represents components of the legal health record. It is not the complete legal health record.[facility]
--- OUTSIDE RECORDS SUMMARY | 2025-07-06 18:32 | XMS_ITS | Encounter Summary ---
Author Organization [facility] Address [address] [place] [address] [place] [address] Phone Care Team Providers Care Grading Machine Operator Name Role Phone Hong Maddox MD Unavailable [phone] Pravin Landis MD Unavailable [phone] Johana Amador MD Unavailable [phone] Kym Carranza MD Primary Care Provide r Carmen Felix MD Unavailable [phone] Encounter Details Date Type Department Care Team (Late st Contact Info) Description 01/04/2022 Procedure Pass [facility] Endoscopy Department [address] [place] [address] Social History Tobacco Use Types Packs/Day Years [...] Description 12/28/2025 1:20 PM EDT Office Visit [facility] [address] [place] [address] [address]rd Floor, [address] [place] [address] Prince Freitas MD [address] [facility], [address] [place] [address] [email or web address] documented as of this encounter Visit Diagnoses Not on filedocumented in this encounter Care Teams Grading Machine Operator Relationship Specialty Start Date End Date Kym Carranza MD [address] [place] [address] 1 [place] [address] PCP - General Internal Medicine 12/22/21 Hong Maddox MD [address] [address] [email or web address] Historical LMR Provider 07/04/17 Pravin Landis MD [address] [place] [address] [email or web address] Primary Oncologist Medical Oncology 02/08/21 Johana Amador MD [address] [address] Referring Physician Gastroenterology 03/27/21 Carmen Felix MD [address] [place] [address] Ramos [email or web address] Medical Oncology 03/11/24 documented as of this encounter Additional Source Comments The information contained in this document represents components of the legal health record. It is not the complete legal health record.[facility]
--- OUTSIDE RECORDS SUMMARY | 2025-07-06 18:32 | XMS_ITS | Encounter Summary ---
Author Organization [facility] Address [address] [place] [address] Phone Care Team Providers Care Kiss Mixer Name Role Phone Evangelist Gabriel MD Unavailable [phone] Vignesh Farias MD Unavailable [phone] Dixon Quiñones NP Unavailable [phone] Hong Maddox MD Unavailable [phone] Kym Carranza MD Primary Care Provide r Self-Referred, Patient Unavailable Unavailab Pravin Leung MD Unavailable [phone] Johana Amador MD Unavailable [phone] Johana Amador MD Primary Care Provid er Kym Carranza MD Primary Care Provide r Carmen Felix MD Unavailable [phone] Encounter Details Date Type Department Care Team ([facility] st Contact Info) Description 12/15/2020 Telephone [facility] [address] [place] [address] Kendall Garcia MD, MPH [address] [facility]3rd [place] [address] [email or web address] Social History Tobacco Use Types Packs/Day [...] Description 12/28/2025 1:20 PM EDT Office Visit [facility] [address] [place] [address] 3rd Floor, [address] [place] [address] Prince Freitas MD [address] [place] [address] [email or web address] documented as of this encounter Visit Diagnoses Not on filedocumented in this encounter Care Teams Kiss Mixer Relationship Specialty Start Date End Date Kym Carranza MD [address] [place] [address] PCP - General Internal Medicine 11/28/20 05/04/21 Johana Amador MD [address] [place] [address] PCP - General Gastroenterology 05/05/21 12/21/21 Kym Carranza MD [address] [place] [address] PCP - General Internal Medicine 12/22/21 Evangelist Gabriel MD [address] [place] [address], [address] [address] Historical LMR Provider 07/04/17 09/23/21 Vignesh Farias MD [address] [facility] [address] [place] [address] [email or web address] Historical LMR Provider 07/04/17 09/23/21 Dixon Quiñones NP [address] [place] [address] [address] [place] [address] Historical LMR Provider 07/04/17 2 Hong Maddox MD [address] [place] [address] [email or web address] Historical LMR Provider 07/04/17 Self-Referred, Patient Referring Physician 11/28/20 Pravin Landis MD [address] [place] [address] [email or web address] Primary Oncologist Medical Oncology 02/08/21 Johana Amador MD [address] [address] Referring Physician Gastroenterology 03/27/21 Carmen Felix MD [address] [place] [address] Ramos Medical Oncology 03/11/24 documented as of this encounter Additional Source Comments The information contained in this document represents components of the legal health record. It is not the complete legal health record.[facility]
--- OUTSIDE RECORDS SUMMARY | 2025-07-06 18:33 | XMS_ITS | Encounter Summary ---
Author Organization [facility] Address [address] [place] [address] Phone Care Team Providers Care Mileage Clerk Name Role Phone Evangelist Gabriel MD Unavailable [phone] Vignesh Farias MD Unavailable [phone] Dixon Quiñones NP Unavailable [phone] Hong Maddxo MD Unavailable [phone] Kym Carranza MD Primary Care Provide r Self-Referred, Patient Unavailable Unavailab Pravin Leung MD Unavailable [phone] Johana Amador MD Unavailable [phone] Johana Amador MD Primary Care Provid er Kym Carranza MD Primary Care Provide r Carmen Felix MD Unavailable [phone] Encounter Details Date Type Department Care Team (Late st Contact Info) Description 02/10/2021 Ancillary Orders [facility],Outside Imaging [address] [place], [place] [phone] System, Provider Not In, [facility] [address] [address] Social History Tobacco Use Types Packs/Day Years [...] Description 12/28/2025 1:20 PM EDT Office Visit [facility] [address] [place] [address] 3rd Floor, [address] [place] [address] Prince Freitas MD [address] [facility], [address] [place] [address] [email or web address] documented as of this encounter Results * CT Abdomen/Pelvis Outside (No Interpretation) (12/02/2020 12:00 AM EDT) Narrative SYSTEMGENERATED, DOCUMENTATION - 02/10/2021 10:32 AM EDT This study is for PACS storage only and not for interpretation. us Provider Not In System PhD IMG OUTSIDE IMAGING W /OUT INTERPRETATION Final Result documented in this encounter Visit Diagnoses Not on filedocumented in this encounter Care Teams Mileage Clerk Relationship Specialty Start Date End Date Kym Carranza MD [address] [place] [address] 1 [place] [address] PCP - General Internal Medicine 11/28/20 05/04/21 Johana Amaodr MD [address] [place] [address] PCP - General Gastroenterology 05/05/21 12/21/21 Kym Carranza MD [address] [place] [address] 1 [place] [address] PCP - General Internal Medicine 12/22/21 Evangelist Gabriel MD [address] [facility], [address] [address] [email or web address] Historical LMR Provider 07/04/17 09/23/21 Vignesh Farias MD [address] [place] [address] [email or web address] Historical LMR Provider 07/04/17 09/23/21 Dixon Quiñones NP [address] [place] [address] [address] Historical LMR Provider 07/04/17 2 Hong Maddox MD [address] [place] [address] [email or web address] Historical LMR Provider 07/04/17 Self-Referred, Patient Referring Physician 11/28/20 Pravin Landis MD [address] [place] [address] [email or web address] Primary Oncologist Medical Oncology 02/08/21 Johana Amador MD [address] [place] [address] Referring Physician Gastroenterology 03/27/21 Carmen Felix MD [address] [place] [phone] Ramos [email or web address] Medical Oncology 03/11/24 documented as of this encounter Additional Source Comments The information contained in this document represents components of the legal health record. It is not the complete legal health record.[facility]
--- OUTSIDE RECORDS SUMMARY | 2025-07-06 18:33 | XMS_ITS | Encounter Summary ---
Author Organization [facility] Address [address] [place] [address] Phone Care Team Providers Care Disc Inspector Name Role Phone Evangelist Gabriel MD Unavailable [phone] Vignesh Farias MD Unavailable [phone] Dixon Quiñones NP Unavailable Hong Maddox MD Unavailable [phone] Kym Carranza MD Primary Care Provide r Self-Referred, Patient Unavailable Unavailab Pravin Leung MD Unavailable [phone] Johana Amador MD Unavailable [phone] Johana Amador MD Primary Care Provid er Kym Carranza MD Primary Care Provide r Carmen Felix MD Unavailable [phone] Encounter Details Date Type Department Care Team (Late st Contact Info) Description 02/06/2021 Procedure Pass [facility], [address] [id number] Social History Tobacco Use Types Packs/Day Years [...] Description 12/28/2025 1:20 PM EDT Office Visit [facility] [address] [place] [address] 3rd [facility], [address] [place] [address] Prince Freitas MD [address] [place] [address] [email or web address] documented as of this encounter Visit Diagnoses Not on filedocumented in this encounter Care Teams Disc Inspector Relationship Specialty Start Date End Date Kym Carranza MD [address] [place] [address] PCP - General Internal Medicine 11/28/20 05/04/21 Johana Amador MD [address] [place] [address] PCP - General Gastroenterology 05/05/21 12/21/21 Kym Carranza MD [address] [place] [address] PCP - General Internal Medicine 12/22/21 Evangelist Gabriel MD [address] [place] [address] [email or web address] Historical LMR Provider 07/04/17 09/23/21 Vignesh Farias MD [address] [place] [address], [address] [place] [address] [email or web address] Historical LMR Provider 07/04/17 09/23/21 Dixon Quiñones NP [address] [place] [address] [address] [place] [phone] Historical LMR Provider 07/04/17 2 Hong Maddox MD [address] [place] [address] [email or web address] Historical LMR Provider 07/04/17 Self-Referred, Patient Referring Physician 11/28/20 Pravin Landis MD [address] [place] [address] [email or web address] Primary Oncologist Medical Oncology 02/08/21 Johana Amador MD [address] [place] [address] Referring Physician Gastroenterology 03/27/21 Carmen Felix MD [address] [place] [phone] Ramos [email or web address] Medical Oncology 03/11/24 documented as of this encounter Additional Source Comments The information contained in this document represents components of the legal health record. It is not the complete legal health record.[facility]
--- OUTSIDE RECORDS SUMMARY | 2025-07-06 18:33 | XMS_ITS | Encounter Summary ---
Author Organization [facility] Address [address] [facility] [address] [place] [address] Phone Care Team Providers Care Senior Android Software Engineer Name Role Phone Hong Maddox MD Unavailable [phone] Pravin Landis MD Unavailable Johana Amador MD Unavailable [phone] Kym Carranza MD Primary Care Provide r Carmen Felix MD Unavailable [phone] Encounter Details Date Type Department Care Team (Late st Contact Info) Description 03/13/2022 Procedure Pass [facility], [facility] [place], [place] [address] [facility], Floor [address]1 [place] [address] Social History Tobacco Use Types [...] Description 12/28/2025 1:20 PM EDT Office Visit [facility] [address] [place] [address] 3rd Floor, [address] [place] [address] Prince Freitas MD [address] [facility], [address] [place] [address] [email or web address] documented as of this encounter Visit Diagnoses Not on filedocumented in this encounter Care Teams Senior Android Software Engineer Relationship Specialty Start Date End Date Kym Carranza MD [address] [place] [address] 1 [place] [address] PCP - General Internal Medicine 12/22/21 Hong Maddox MD [address] [place] [address] [email or web address] Historical LMR Provider 07/04/17 Pravin Landis MD [address] [place] [address] [email or web address] Primary Oncologist Medical Oncology 02/08/21 Johana Amador MD [address] [place] [address] Referring Physician Gastroenterology 03/27/21 Carmen Felix MD [address] [place] [phone] Ramos Medical Oncology 03/11/24 documented as of this encounter Additional Source Comments The information contained in this document represents components of the legal health record. It is not the complete legal health record.[facility]
--- OUTSIDE RECORDS SUMMARY | 2025-07-06 18:33 | XMS_ITS | Encounter Summary ---
Author Organization [facility] Address [address] [place] [address] Phone Care Team Providers Care Mortar Man Name Role Phone Evangelist Gabriel MD Unavailable [phone] Vignesh Farias MD Unavailable [phone] Dixon Quiñones NP Unavailable Hong Maddox MD Unavailable [phone] Pravin Landis MD Unavailable Johana Amador MD Unavailable [phone] Johana Amador MD Primary Care Provid er Kym Carranza MD Primary Care Provide r Carmen Felix MD Unavailable [phone] Encounter Details Date Type Department Care Team (Late st Contact Info) Description 08/29/2021 Procedure Pass [address] [address] Social History Tobacco Use Types Packs/Day Years [...] Description 12/28/2025 1:20 PM EDT Office Visit [facility] [address] [facility] 3rd Floor, [address] [place] [address] Prince Freitas MD [address] [address] documented as of this encounter Visit Diagnoses Not on filedocumented in this encounter Care Teams Mortar Man Relationship Specialty Start Date End Date Johana Amador MD [address] [place] [address] PCP - General Gastroenterology 05/05/21 12/21/21 Kym Carranza MD [address] [place] [address] PCP - General Internal Medicine 12/22/21 Evangelist Gabriel MD [address] [place] [address] Historical LMR Provider 07/04/17 09/23/21 Vignesh Farias MD [address] [place] [address] Historical LMR Provider 07/04/17 09/23/21 Dixon Quiñones NP [address] [place] [address] [phone] Historical LMR Provider 07/04/17 2 Hong Maddox MD [address] [address] [email or web address] Historical LMR Provider 07/04/17 Pravin Landis MD [address] [place] [address] [email or web address] Primary Oncologist Medical Oncology 02/08/21 Johana Amador MD [address] [place] [address] Referring Physician Gastroenterology 03/27/21 Carmen Felix MD [address] [place] [phone] Ramos Medical Oncology 03/11/24 documented as of this encounter Additional Source Comments The information contained in this document represents components of the legal health record. It is not the complete legal health record.[facility]
--- OUTSIDE RECORDS SUMMARY | 2025-07-06 18:33 | XMS_ITS | Encounter Summary ---
Author Organization [facility] Address [address] [facility] [address] [place] [address] Phone Care Team Providers Care Perioperative Tech Name Role Phone Hong Maddox MD Unavailable [phone] Pravin Landis MD Unavailable [phone] Johana Amador MD Unavailable [phone] Kym Carranza MD Primary Care Provide r Carmen Felix MD Unavailable [phone] Encounter Details Date Type Department Care Team (Late st Contact Info) Description 05/28/2023 Procedure Pass [facility] [place] [facility] [place] [place] [address] [address] Social History Tobacco Use Types [...] Description 12/28/2025 1:20 PM EDT Office Visit [facility] [address] [place] [address] 3rd Floor, [address] [place] [address] Prince Freitas MD [address] [place] [address] [email or web address] documented as of this encounter Visit Diagnoses Not on filedocumented in this encounter Care Teams Perioperative Tech Relationship Specialty Start Date End Date Kym Carranza MD [address] [place] [address] PCP - General Internal Medicine 12/22/21 Hong Maddox MD [address] [address] [email or web address] Historical LMR Provider 07/04/17 Pravin Landis MD [address] [place] [address] [email or web address] Primary Oncologist Medical Oncology 02/08/21 Johana Amador MD [address] [address] Referring Physician Gastroenterology 03/27/21 Carmen Felix MD [address] [place] [phone] Ramos [email or web address] Medical Oncology 03/11/24 documented as of this encounter Additional Source Comments The information contained in this document represents components of the legal health record. It is not the complete legal health record.[facility]
--- OUTSIDE RECORDS SUMMARY | 2025-07-06 18:33 | XMS_ITS | Encounter Summary ---
Author Organization [facility] Address [address] [place] [address] [place] [address] Phone Care Team Providers Care [facility] Name Role Phone Hong Maddox MD Unavailable [phone] Pravin Landis MD Unavailable [phone] Johana Amador MD Unavailable [phone] Kym Carranza MD Primary Care Provide r Carmen Felix MD Unavailable [phone] Encounter Details Date Type Department Care Team (Late st Contact Info) Description 12/29/2024 Procedure Pass [facility] [place] [place] [id number] Social History Tobacco Use Types Packs/Day Years [...] Description 12/28/2025 1:20 PM EDT Office Visit [facility] [address] [place] [address] 3rd Floor, [address] [place] [address] Prince Freitas MD [address] [place] [address] [email or web address] documented as of this encounter Visit Diagnoses Not on filedocumented in this encounter Care Teams [facility] Relationship Specialty Start Date End Date Kym Carranza MD [address] [place] [address] PCP - General Internal Medicine 12/22/21 Hong Maddox MD [address] [place] [address] [email or web address] Historical LMR Provider 07/04/17 Pravin Landis MD [address] [place] [address] [email or web address] Primary Oncologist Medical Oncology 02/08/21 Johana Amador MD [address] [address] Referring Physician Gastroenterology 03/27/21 Carmen Felix MD [address] [place] [phone] Ramos [email or web address] 03/11/24 documented as of this encounter Additional Source Comments The information contained in this document represents components of the legal health record. It is not the complete legal health record.[facility]
--- OUTSIDE RECORDS SUMMARY | 2025-07-06 18:33 | XMS_ITS | Clinical Summary ---
Author Organization [facility] Address [address] [address] Phone Care Team Providers Care Patient Transport Officer Name Role Phone Hong Maddox MD Unavailable [phone] Pravin Landis MD Unavailable [phone] Johana Amador MD Unavailable [phone] Kym Carranza MD Primary Care Provide r Carmen Felix MD Unavailable [phone] Allergies Active Allergy Reactions Criticality Noted Date Comments Aspirin Swelling,Angioedema High 12/06/2017 Mouth swelling Latex, Natural Rubber Itching Low 12/06/2017 Levofloxacin Diarrhea Low 12/06/2017 Gabapentin Hives Low 05/21/2018 Medications LORazepam (ATIVAN) 0.5 MG tablet Take 1 tablet by mouth nightly as needed. Active CETIRIZINE HCL (ZYRTEC ORAL) Active SPIRIVA RESPIMAT 2.5 mcg/actuation mist for inhalation Inhale 2 puffs into the lungs daily. 1 Active TRINTELLIX 10 mg Tab Take 10 mg by mouth nightly at bedtime. 1 Active loperamide (IMODIUM) 2 mg capsule Take 2 mg by mouth 4 (four) times a day as needed for diarrhea. Active multivitamin-architectural examiner als-lutein (MULTIVITAMIN 50 PLUS) Tab Take 1 tablet by mouth daily. Active b complex vitamins capsule Take 1 capsule by mouth daily. Vitamin B3 Active calcium carbonate/vitamin D3 (CALCIUM WITH VITAMIN D3 ORAL) Take 1 tablet by mouth daily. Active NYAMYC powder APPLY TO THE AFFECTED AREAS IN THE BREAST TWICE DAILY MAINTENANCE. 3 Active clopidogrel (PLAVIX) 75 mg tabletIndications: Medication refill Take 1 tablet (75 mg total) by mouth daily. 90 tablet 3 5 Active ezetimibe (ZETIA) 10 mg tabletIndications: Hyperlipidemia, unspecified hyperlipidemia type Take 1 tablet (10 mg total) by mouth daily. 90 tablet 3 5 Active rosuvastatin (CRESTOR) 40 MG tabletIndications: Medication refill TAKE 1 TABLET BY MOUTH EVERY NIGHT AT BEDTIME 100 tablet 2 5 Active budesonide-formote rol (SYMBICORT) 160-4.5 mcg/actuation inhaler Inhale 2 puffs into the lungs 2 (two) times a day. 025 Discontin ued(No longer taking) empagliflozin (JARDIANCE) 25 mg tablet Take 25 mg by mouth daily. 025 Discontin ued(No longer taking) Active Problems Problem Noted Date Diagnosed Date Malignant neoplasm of colon 02/21/2021 Cancer Staging:Pathologic stage from 12/20/2020:Stage IIA(pT3, pN0, cM0) - Signed by Jeannie Man MD, PhD on 02/21/2021 S/P colon resection 12/20/2020 Chronic obstructive pulmonary disease (COPD) 09/2020 Coronary artery disease invo lving [place] coronary artery of [place] heart without angina pectoris 11/11/2017 Overview (04/12/2020): 2000 PCI BMS LAD 2002 CATH EF 40 NONOBST 2016 NUKE ANT PA; EF 40-45 07/2019 ECHO EF 50-55%; DD1; 11/2019 NUKE ANT PA EF 41% Assessment & Plan (09/13/2020 2:48 [...] EST): As of the echocardiogram done at [facility] this is unchanged. Ejection fraction remains in [...] Encounters Date Type Department Care Team Description 06/28/2025 1:40 PM EDT Office Visit [facility] [address] Floor, [address] [place] [address] Prince Freitas MD Coronary artery disease of [place] artery of [place] heart with stable angina pectoris (Primary Dx); Essential hypertension; Hyperlipidemia, unspecified hyperlipidemia type 06/14/2025 12:26 PM EDT - 06/14/2025 11:59 PM EDT Hospital Encounter [facility] [address] [place] [address] Prince Freitas MD Discharge Disposition: Home or Self Care 04/27/2025 Refill [facility] [address] Floor, [address] [place] [address] Prince Freitas MD Medication Refill 12/29/2024 Procedure Pass [facility] [address] [place] [address] from Last 3 Months Family History Medical [...] Sign Reading Time Taken Comments Blood Pressure 110/52 06/28/2025 1:33 PM EDT Pulse 106 06/28/2025 1:33 PM EDT Temperature 36.3 C (97.3 F) 12/11/2023 1:31 PM EDT Respiratory Rate 14 12/11/2023 1:31 PM EDT Oxygen Saturation 96% 06/28/2025 1:33 PM EDT Inhaled Oxygen Concentration - - Weight 70.3 kg (155 lb) 06/28/2025 1:33 PM EDT Height 162 cm (5' 3.78 ) 06/28/2025 1:33 PM EDT Body Mass Index 26.79 06/28/2025 1:33 PM EDT Plan of Treatment Upcoming Encounters Date Type Department Care Team (Late st Contact Info) Description 12/28/2025 1:20 PM EDT Office Visit [facility] [address] 3[address] Floor, [address] [place] [address] Prince Freitas MD [address] [facility], [address] [place] [address] [email or web address] Health Maintenance Due Date Last Done Comments DEPRESSION SCREENING 1962 HEPATITIS C SCREENING 02/29/1968 ZOSTER VACCINES (1 of 2) 1969 COLOGUARD 1995 FIT TEST 1995 FOBT 1995 SIGMOIDOSCOPY 1995 VIRTUAL COLONOSCOPY 1995 OSTEOPOROSIS SCREENING INITIAL (ONE-TIME) 2015 Adult Td,Tdap Booster 09/16/2015 09/16/2005 DIABETIC EYE EXAM 12/15/2020 URINE MICROALBUMIN/CREATININE RATIO 12/15/2020 INFLUENZA VACCINE (#1) 2025 , 06/27/2022, 06/27/2022, Additional history exists COVID-19 VACCINE ( season) 2025 10/22/2023, 06/27/2022, 02/06/2022, Additional history exists HEMOGLOBIN A1C 07/22/2025 01/19/2025, 12/21/2020 BLOOD PRESSURE 12/27/2025 06/28/2025 SMOKING Hx and SMOKELESS TOBACCO SCREENING 06/28/2026 06/28/2025 COLONOSCOPY 01/05/2032 01/04/2022 COLORECTAL CANCER SCREENING 01/05/2032 [...] this topic Medical Devices Implanted Type Area Telecommunication Equipment Repairer Device Identifier Shelf Expiration Date Model / Serial / Lot Stent Stent Description:1999 Procedures Procedure Name Priority Date/Time Associated Diagnosis Comments TTE COMPREHENSIVE Routine 06/14/2025 1:2 2 PM EDT Other cardiomyopathy ENDOSCOPY, COLON 01/04/2022 2:42 PM EDT HEMOGLOBIN A1C Routine 12/21/2020 3:47 AM EDT from Last 3 Months or Most Recently Relevant to Health Maintenance Results * TTE COMPREHENSIVE (06/14/2025 1:22 PM EDT) Height 162 cm Weight 68 kg Systolic BP 116 mmHg Diastolic BP 62 mmHg Interventricular Septum Thickness 8 6 - 11 mm Left Ventricle Internal Diameter End Diastole 47 37 - 52 mm Left Ventricle Internal Diameter End Systole 30 <35 mm Left Ventricular Outflow Tract Diameter 21.0 mm Left Ventricular Posterior Wall Thickness 9 6 - 11 mm Left Ventricle Ea Lateral Wave Speed 9.1 cm/s Left Ventricle Ea Septal Wave Speed 3.4 cm/s Ejection Fraction 45 50 - 75 Percent Left Atrium Dimension Anterior-Posterior 34 15 - 40 mm Aortic Valve Mean Gradient 4 mmHg Aortic Valve Time Velocity Integral 278.0 mm Aortic Valve Peak Velocity 1.4 m/s Aortic Valve Peak Gradient 8 mmHg Aortic Arch Diameter 26 mm Aortic Sinus Diameter 30 <40 mm Ascending Aorta Diameter 29 <36 mm Inferior Vena Cava Diameter 16 <21 mm Mitral Valve Deceleration Time 201 ms Left Ventricle A Wave Speed 134.0 cm/s Left Ventricle E Wave Speed 55.1 cm/s Pulmonary Valve Peak Velocity 0.9 m/s Pulmonary Valve Peak Gradient 3 mmHg Right Ventricle Basal Diameter 36 25 - 41 mm Tricuspid Valve Peak Velocity 1.4 m/s Raw LV EF% 59 % MV E/E' Tissue Velocity Lateral 6.05 Relative Wall Thickness 0.38 0.22 - 0.42 MV E/A ratio 0.4 MV E/e' septal 16.21 Left Ventricle E/e' Average 11.1 Aortic Valve Prosthetic Peak Gradient 8 mmHg Aortic Valve Prosthetic Mean Gradient 4 mmHg Aorta Sinus Index by Height 1.85 cm/m Aorta Sinus CSA index by Height 4.36 cm2/m Asc Aorta CSA Index by Height 4.08 cm2/m Right Ventricle to Right Atrium Pressure Gradient 8 mmHg Right Ventricle Peak Systolic Pressure (Assuming RAP 10) 18 mmHg MGB CV ECHO TV RVSP (ASSUMING RAP OF 5) 13 mmHg RVSP (Exclusive of RAP) 8 mmHg Pulmonic Valve Prosthetic Peak Gradient 3 mmHg Echo E/Ea 16.21 Body Surface Area 1.73 m2 Left Ventricle indexed to BSA 76.5 g/m2 Aortic Valve Sinus Index by BSA 17 mm/m2 Ascending Aorta Index 17 mm/m2 Ascending Aorta Index 17 mm Aortic Sinus Index 17 mm Ascending Aorta Diameter 17 mm Aortic Valve Sinus Index 1 17 19 - 27 mm AO ASC DIAM BSA INDEX 16.76 GLS 11.3 % Left Atrial Volume Index 21 16 - 34 mL/m2 Right Ventricle Peak Systolic Pressure 11 mmHg Right Ventricle TAPSE 24 >=17 mm Right Ventricle Pulse Doppler S Wave 11.4 >=9.5 cm/s Left Atrial Volume 36 mL Left Atrial Volume Index by Height 22 mL/m Right Atrium Area 11 cm2 Right Atrium Area index 6 cm2/m2 Right Atrium Pressure Estimated 3 mmHg Anatomical Region Laterality Modality Heart Ultrasound Narrative 06/15/2025 10:54 AM EDT Images from the original result were not included. Normal LV size with mild global LV dysfunction EF 40-45 %. Looks like there are regional wall motion abnormalities with hypokinesis of the mid distal anterior wall, anteroseptum and apex. Normal left atrial size. Normal RV size and function. Normal diastolic function for age. GLS is reduced at -11.3%. No significant valvular heart disease is seen. Compared to study from 2021, probably no change. I could actually find the 2021 study, in 2019 they thought the EF was 50% but there was still akinesis in that distribution. Left Ventricle The left ventricle is normal in size. There is normal wall thickness. There is mildly reduced left ventricular systolic function. The LV ejection fraction is 45% (calculated via biplane measurement). Average global longitudinal strain (GLS) is -11.3% (reduced). There are regional wall motion abnormalities, affecting the inferior and apical marcus. LV diastolic function parameters are indeterminate in total. The E/A ratio is 0.4. The e' septal wave velocity is 3.4 cm/s. The e' lateral wave velocity is 9.1 cm/s. The average E/e' ratio is 11.1. Right Ventricle The right ventricle is normal in size. The RV basal dimension is 36 mm. There is normal right ventricular systolic function. TAPSE is 24 mm. RV S' wave is 11.4 cm/s. Left Atrium The left atrium is normal in size. The left atrial volume is 36 mL. There are normal flow patterns in the pulmonary vein. Right Atrium The right atrium is normal in size. The right atrial area is 11 cm2. The IVC is normal in size with normal inspiratory collapse. The IVC diameter is 16 mm (normal: <= 21 mm). Hepatic veins are normal in size. Mitral Valve There is mitral valve thickening. There is no mitral stenosis. There is trace to mild mitral regurgitation. Tricuspid Valve The tricuspid valve appears normal. There is no tricuspid stenosis. There is trace tricuspid regurgitation. The RV systolic pressure was calculated at 11 mmHg (using TR peak velocity of 1.4 m/s and assuming an RA pressure of 3 mmHg). Aortic Valve The aortic valve is tricuspid. There is leaflet thickening without stenosis. The aortic valve peak velocity is 1.4 m/s. The peak and mean aortic valve gradients are 8 mmHg and 4 mmHg respectively. There is no aortic regurgitation. The visualized portions of the thoracic aorta appear normal in size. Pulmonic Valve The pulmonic valve appears normal. Pericardium There is no pericardial effusion. There are no pleural effusions. General Findings The image quality was fair (3). Strain performed. Technique(s) used in the evaluation: Color flow Doppler and Spectral Doppler. The predominant rhythm during the study was sinus. Comparison Findings Compared to prior report on 10/20/2021, IAS/IVS The interatrial septum appears normal. There is no evidence of patent foramen ovale (PFO). The interventricular septum appears normal. There is no evidence of a ventricular septal defect. Wall Scoring Baseline Score Index: 2.50 The following segments are akinetic: apical anterior, apical septal, apical inferior, apical lateral and apex. The following segments are hypokinetic: basal inferoseptal, basal inferior, mid anteroseptal, mid inferoseptal and mid inferior. Other segments could not be evaluated. us Prince Freitas MD CV ECHO ORDERABLES Final Resu lt * ENDOSCOPY, COLON (01/04/2022 2:42 PM EDT) 01/04/2022 2:42 PM EDT Narrative Transcriptions Mila Aldridge MD, MPH - 01/04/2022 2:42 PM EDT [facility] Gastroenterology Patient Name: Corin Alvarenga Procedure Date: [...] HEMOGLOBIN A1C 7.7(H) 4.2 - 5.6 % [facility] Comment: HbA1c levels 5.7-6.4% represent [...] ORDERABLES Eloise ha Result Performing Organization Address City/State/[facility] Co de Phone Number [facility] [address] [place] [phone] from Last 3 Months or Most Recently Relevant to Health Maintenance Insurance [facility] MEDICARE REPLACEMENT [facility] MEDICARE REPLACEMENT [facility] MEDICARE REPLACEMENT [facility] MEDICARE REPLACEMENT [facility] MEDICARE REPLACEMENT [facility] MEDICARE REPLACEMENT Advance Directives For more information, please contact: [phone] (9AM - 5PM [place], Saturday-Saturday) * Full Code (Latest Code Status on File) Date Activated Date Inactivated Comments 12/20/2020 6:12 PM Question Answer Comments Code Status Confirmed With: Patient * Full Code Date Activated Date Inactivated Comments 12/20/2020 10:44 AM 12/20/2020 6:12 PM Question Answer Comments Code Status Confirmed With: Patient Care Teams Patient Transport Officer Relationship Specialty Start Date End Date Kym Carranza MD [address] [place] [address] 1 [place] [address] PCP - General Internal Medicine 12/22/21 Hong Maddox MD [address] [place] [address] [email or web address] Historical LMR Provider 07/04/17 Pravin Landis MD [address] [place] [address] [email or web address] Primary Oncologist Medical Oncology 02/08/21 Johana Amador MD [address] [place] [address] Referring Physician Gastroenterology 03/27/21 Carmen Felix MD [address] [place] [phone] Ramos .[facility] Medical Oncology 03/11/24 Additional Source Comments The information contained in this document represents components of the legal health record. It is not the complete legal health record.[facility]
--- OUTSIDE RECORDS SUMMARY | 2025-07-06 18:33 | XMS_ITS | Encounter Summary ---
Author Organization [facility] Address [address] [facility] [address] [place] [address] Phone Care Team Providers Care Astronomy Professor Name Role Phone Hong Maddox MD Unavailable [phone] Pravin Landis MD Unavailable [phone] Johana Amador MD Unavailable [phone] Kym Carranza MD Primary Care Provide r Carmen Felix MD Unavailable [phone] Encounter Details Date Type Department Care Team (Late st Contact Info) Description 05/28/2023 Procedure Pass [facility] [place] [facility] [place] [address] [address] Social History Tobacco Use Types [...] Description 12/28/2025 1:20 PM EDT Office Visit [facility] [address] [place] [address] 3rd Floor, [address] [place] [address] Prince Freitas MD [address] [place] [address] [email or web address] documented as of this encounter Visit Diagnoses Not on filedocumented in this encounter Care Teams Astronomy Professor Relationship Specialty Start Date End Date Kym Carranza MD [address] [place] [address] PCP - General Internal Medicine 12/22/21 Hong Maddox MD [address] [address] [email or web address] Historical LMR Provider 07/04/17 Pravin Landis MD [address] [place] [address] [email or web address] Primary Oncologist Medical Oncology 02/08/21 Johana Amador MD [address] [address] Referring Physician Gastroenterology 03/27/21 Carmen Felix MD [address] [place] [phone] Ramos [email or web address] Medical Oncology 03/11/24 documented as of this encounter Additional Source Comments The information contained in this document represents components of the legal health record. It is not the complete legal health record.[facility]
--- OUTSIDE RECORDS SUMMARY | 2025-07-06 18:33 | XMS_ITS | Encounter Summary ---
Author Organization [facility] Address [address] [place] [address] Phone Care Team Providers Care Business Development Specialist Name Role Phone Evangelist Gabriel MD Unavailable Vignesh Farias MD Unavailable [phone] Dxion Quiñones NP Unavailable Hong Maddox MD Unavailable [phone] Pravin Landis MD Unavailable [phone] Johana Amador MD Unavailable [phone] Johana Amador MD Primary Care Provid er Kym Carranza MD Primary Care Provide r Carmen Felix MD Unavailable [phone] Encounter Details Date Type Department Care Team (Late st Contact Info) Description 08/29/2021 Procedure Pass [address] [address] Social History Tobacco Use Types Packs/Day Years [...] Description 12/28/2025 1:20 PM EDT Office Visit [facility] [address] [facility] 3rd Floor, [address] [place] [address] Prince Freitas MD [address] [address] documented as of this encounter Visit Diagnoses Not on filedocumented in this encounter Care Teams Business Development Specialist Relationship Specialty Start Date End Date Johana Amador MD [address] [place] [address] PCP - General Gastroenterology 05/05/21 12/21/21 Kym Carranza MD [address] [place] [address] PCP - General Internal Medicine 12/22/21 Evangelist Gabriel MD [address] [place] [address] Historical LMR Provider 07/04/17 09/23/21 Vignesh Farias MD [address] [place] [address] Historical LMR Provider 07/04/17 09/23/21 Dixon Quiñones NP [address] [place] [address] [phone] Historical LMR Provider 07/04/17 2 Hong Maddox MD [address] [address] [email or web address] Historical LMR Provider 07/04/17 Pravin Landis MD [address] [place] [address] [email or web address] Primary Oncologist Medical Oncology 02/08/21 Johana Amador MD [address] [place] [address] Referring Physician Gastroenterology 03/27/21 Carmen Felix MD [address] [place] [phone] Ramos Medical Oncology 03/11/24 documented as of this encounter Additional Source Comments The information contained in this document represents components of the legal health record. It is not the complete legal health record.[facility]
--- OUTSIDE RECORDS SUMMARY | 2025-07-06 18:33 | XMS_ITS | Encounter Summary ---
Author Organization [facility] Address [address] [place] [address] Phone Care Team Providers Care Oracle Forms Developer Name Role Phone Evangelist Gabriel MD Unavailable [phone] Vignesh Farias MD Unavailable Dixon Quiñones NP Unavailable Hong Maddox MD Unavailable [phone] Kym Carranza MD Primary Care Provide r Self-Referred, Patient Unavailable Unavailab Pravin Leung MD Unavailable Johana Amador MD Unavailable [phone] Johana Amador MD Primary Care Provid er Kym Carranza MD Primary Care Provide r Carmen Felix MD Unavailable [phone] Encounter Details Date Type Department Care Team (Late st Contact Info) Description 02/21/2021 Procedure Pass [facility] Scan - [address] [id number] Social History Tobacco Use Types Packs/Day Years [...] Description 12/28/2025 1:20 PM EDT Office Visit [facility] [address] [place] [address] 3rd Floor, [address] [place] [address] Prince Freitas MD [address] [place] [address] [email or web address] documented as of this encounter Visit Diagnoses Not on filedocumented in this encounter Care Teams Oracle Forms Developer Relationship Specialty Start Date End Date Kym Carranza MD [address] [place] [address] PCP - General Internal Medicine 11/28/20 05/04/21 Johana Amador MD [address] [place] [address] PCP - General Gastroenterology 05/05/21 12/21/21 Kym Carranza MD [address] [place] [address] PCP - General Internal Medicine 12/22/21 Evangelist Gabriel MD [address] [place] [address] Historical LMR Provider 07/04/17 09/23/21 Vignesh Farias MD [address] [place] [address] [email or web address] Historical LMR Provider 07/04/17 09/23/21 Dixon Quiñones NP [address] [place] [address] [phone] Historical LMR Provider 07/04/17 2 Hong Maddox MD [address] [address] [email or web address] Historical LMR Provider 07/04/17 Self-Referred, Patient Referring Physician 11/28/20 Pravin Landis MD [address] [place] [address] [email or web address] Primary Oncologist Medical Oncology 02/08/21 Johana Amador MD [address] [address] Referring Physician Gastroenterology 03/27/21 Carmen Felix MD [address] [place] [phone] Ramos [email or web address] Medical Oncology 03/11/24 documented as of this encounter Additional Source Comments The information contained in this document represents components of the legal health record. It is not the complete legal health record.[facility]
== END 2025-07-06 14:41 | disposition home or self-care (01) ==
LOC: HO.ENCR 13:52
PROVIDERS: PCP Internal Medicine; Visit Provider Physician Assistant Medical
DX: E11.21 Type 2 diabetes mellitus with diabetic nephropathy (principal); C25.9 Malignant neoplasm of pancreas, unspecified

== ENCOUNTER → 2025-07-06 13:51 | Outpatient (BNVA) | payer OTHER, SELFPAY | PROVIDERS: PCP Internal Medicine; Visit Provider Physician Assistant Medical | DX: E11.21 Type 2 diabetes mellitus with diabetic nephropathy (principal) | CPT/HCPCS: 82947 ==

== ENCOUNTER 2025-07-23 13:22 | Outpatient (AMB) | payer OTHER, SELFPAY ==
--- OUTSIDE RECORDS SUMMARY | 2025-07-19 13:51 | XMS_ITS | Encounter Summary ---
Author Organization [facility] Address [address] [place] [address] Care Team Providers Care Working Manager Name Role Phone Jung Carranza MD Primary Care Provider [phone]- [phone] Encounter Details Date Type Department Care Team (Latest Contact Info) Description 07/19/2025 1:51 PM EST - 07/19/2025 11:59 PM EST Hospital Encounter [facility] [address] [phone] Carmen Felix MD [address] [place] [address] Malignant neoplasm of tail of pancreas (CMS/HCC V24, CMS/HCC V28) (Primary Dx); Malignant neoplasm of upper lobe of right [...] Sign Reading Time Taken Comments Blood Pressure 85/55 07/19/2025 2:00 PM EST Pulse 96 07/19/2025 2:00 PM EST Temperature 36.8 C (98.3 F) 07/19/2025 2:00 PM EST Respiratory Rate - - Oxygen Saturation 98% 07/19/2025 2:00 PM EST Inhaled Oxygen Concentration - - Weight - [...] Progress Notes * Sunshine Kimbrough RN - 07/19/2025 2:00 PM Aleksandra addended by: Sunshine Kimbrough RN on: 07/21/2025 1:38 PM Actions taken: Flowsheet accepted * Sunshine Kimbrough RN - 07/19/2025 2:00 PM ESTEhayleeounter addended by: Sunshine Kimbrough RN on: 07/21/2025 2:34 PM Actions taken: Clinical Note Signed, Flowsheet accepted * Sunshine Kimbrough RN - 07/19/2025 2:00 PM EST Pt arrives to unit for lab recheck ( following C 7 ) and hydration. Pt assessed and reports feelingwell . Pt states I don't ever feel too bad , I get tired an di did get a little dizzy when I stood up the other day but otherwise ,I'm okay . Pt and this nurse discussed the importance of hydrationand how pt can increase it in her daily routine. Pt states I don't feel like the hydration makes much difference but I will take it . Lorenzo cath accessed , labs drawn and hydration hung over 1 hour . Pt relaxing , call milner in reach . Labs resulted. Dr Ray at chair side for scheduled office visit . aware of lab results. Hydration complete. Lorenzo cath flushed and deaccessed . Pt tolerated well. Pt aware of next appointments. Pt discharged with steady gait , pt aware to call with any concerns. documented in this encounter Plan of Treatment Upcoming Encounters Date Type Department Care Team (Late st Contact Info) Description 07/26/2025 10:00 AM EST Appointment [facility] [address] [place] [phone] 07/27/2025 8:30 AM EST Appointment [facility] [address] [place] [phone] 08/16/2025 10:45 AM EST Office Visit [facility] H[facility] Oncology [address] [place] [phone] Carmen Felix MD [address] [place] [phone] documented as of this encounter Procedures Procedure Name Priority Date/Time Associated Diagnosis Comments CBC WITH AUTO DIFFERENTIAL STAT 07/19/2025 2:23 PM EST Malignant neoplasm of upper lobe of right lung (CMS/HCC V24, CMS/HCC V28) CBC AND DIFFERENTIAL STAT 07/19/2025 2:23 PM EST Malignant neoplasm of upper lobe of right lung (CMS/HCC V24, CMS/HCC V28) COMPREHENSIVE METABOLIC PANEL STAT 07/19/2025 2:23 PM EST Malignant neoplasm of upper lobe of right lung (CMS/HCC V24, CMS/HCC V28) documented in this encounter Results * (ABNORMAL) CBC auto differential (07/19/2025 2:23 PM EST) WBC 4.0(L) 4.8 - 10.8 K/mcL LAB HEMETOLOGY METHOD 07/19/2025 2:56 PM [facility] RBC 3.80 3.80 - 4.80 M/mcL LAB HEMETOLOGY METHOD 07/19/2025 2:56 PM [facility] Hemoglobin 11.9 11.5 - 16.0 g/dL LAB HEMETOLOGY METHOD 07/19/2025 2:56 PM [facility] Hematocrit 35.6 35.0 - 47.0 % LAB HEMETOLOGY METHOD 07/19/2025 2:56 PM [facility] MCV 94.9 79.0 - 98.0 FL LAB HEMETOLOGY METHOD 07/19/2025 2:56 PM [facility] MCH 31.7 27.0 - 32.0 pcg LAB HEMETOLOGY METHOD 07/19/2025 2:56 PM [facility] MCHC 33.4 32.0 - 37.0 g/dL LAB HEMETOLOGY METHOD 07/19/2025 2:56 PM [facility] RDW 15.2(H) 11.0 - 15.0 % LAB HEMETOLOGY METHOD 07/19/2025 2:56 PM [facility] Platelets 338 130 - 400 K/mcL LAB HEMETOLOGY METHOD 07/19/2025 2:56 PM [facility] MPV 10.2 7.0 - 11.0 FL LAB HEMETOLOGY METHOD 07/19/2025 2:56 PM [facility] NRBC 0.0 <1.0 % LAB HEMETOLOGY METHOD 07/19/2025 2:56 PM [facility] NRBC Absolute 0.00 <0.10 K/mcL LAB HEMETOLOGY METHOD 07/19/2025 2:56 PM [facility] Neutrophils Relative 48.8 % LAB HEMETOLOGY METHOD 07/19/2025 2:56 PM [facility] Lymphocytes Relative 42.1 % LAB HEMETOLOGY METHOD 07/19/2025 2:56 PM [facility] Monocytes Relative 5.7 % LAB HEMETOLOGY METHOD 07/19/2025 2:56 PM [facility] Eosinophils Relative 2.2 % LAB HEMETOLOGY METHOD 07/19/2025 2:56 PM [facility] Basophils Relative 0.7 % LAB HEMETOLOGY METHOD 07/19/2025 2:56 PM [facility] Immature Granulocytes Relative 0.5 % LAB HEMETOLOGY METHOD 07/19/2025 2:56 PM [facility] Neutrophils Absolute 1.97 1.50 - 7.00 K/mcL LAB HEMETOLOGY METHOD 07/19/2025 2:56 PM [facility] Lymphocytes Absolute 1.70 1.00 - 5.00 K/mcL LAB HEMETOLOGY METHOD 07/19/2025 2:56 PM [facility] Monocytes Absolute 0.23 0.20 - 1.00 K/mcL LAB HEMETOLOGY METHOD 07/19/2025 2:56 PM [facility] Eosinophils Absolute 0.09 0.00 - 0.50 K/mcL LAB HEMETOLOGY METHOD 07/19/2025 2:56 PM [facility] Basophils Absolute 0.03 0.00 - 0.20 K/mcL LAB HEMETOLOGY METHOD 07/19/2025 2:56 PM [facility] Immature Granulocytes Absolute 0.02 0.00 - 0.03 K/mcL LAB HEMETOLOGY METHOD 07/19/2025 2:56 PM [facility] Blood Blood sample taken from central line / Unknown Existing Catheter / Unknown 07/19/2025 2:23 PM EST 07/19/2025 2:35 PM EST us Subramony Subramonia-Cory MD LAB BLOOD ORDERABLE S Final Result [facility] [address] [place] [address], * (ABNORMAL) Comprehensive metabolic panel (07/19/2025 2:23 PM EST) Sodium 137 133 - 145 mmol/L LAB CHEMISTRY METHOD 07/19/2025 3:44 PM EST [facility] Potassium 4.2 3.5 - 5.5 mmol/L LAB CHEMISTRY METHOD 07/19/2025 3:44 PM [facility] Chloride 108 96 - 110 mmol/L LAB CHEMISTRY METHOD 07/19/2025 3:44 PM [facility] CO2 24 21 - 32 mmol/L LAB CHEMISTRY METHOD 07/19/2025 3:44 PM [facility] Anion Gap 5 3 - 11 LAB CHEMISTRY METHOD 07/19/2025 3:44 PM [facility] Glucose 264(H) 70 - 100 mg/dL LAB CHEMISTRY METHOD 07/19/2025 3:44 PM [facility] BUN 29(H) 5 - 25 mg/dL LAB CHEMISTRY METHOD 07/19/2025 3:44 PM [facility] Creatinine 1.04 0.50 - 1.10 mg/dL LAB CHEMISTRY METHOD 07/19/2025 3:44 PM [facility] eGFR 56(L) >=60 mL/min/1. 73m2 LAB CHEMISTRY METHOD 07/19/2025 3:44 PM [facility] Comment:Calculation based on the Chronic Kidney Disease Epidemiology Collaboration (CKD-EPI) equation refit without adjustment for race. BUN/Creatinine Ratio 27.9 LAB CHEMISTRY METHOD 07/19/2025 3:44 PM [facility] Calcium 8.2(L) 8.5 - 10.5 mg/dL LAB CHEMISTRY METHOD 07/19/2025 3:44 PM [facility] AST (SGOT) 85(H) 10 - 42 unit/L LAB CHEMISTRY METHOD 07/19/2025 3:44 PM [facility] ALT (SGPT) 126(H) 10 - 60 unit/L LAB CHEMISTRY METHOD 07/19/2025 3:44 PM [facility] Alkaline Phosphatase 73 42 - 121 unit/L LAB CHEMISTRY METHOD 07/19/2025 3:44 PM [facility] Total Protein 5.1(L) 6.0 - 8.0 g/dL LAB CHEMISTRY METHOD 07/19/2025 3:44 PM [facility] Albumin 2.7(L) 3.2 - 5.0 g/dL LAB CHEMISTRY METHOD 07/19/2025 3:44 PM [facility] Total Bilirubin 1.0 0.0 - 1.4 mg/dL LAB CHEMISTRY METHOD 07/19/2025 3:44 PM [facility] Blood Blood sample taken from central line / Unknown Existing Catheter / Unknown 07/19/2025 2:23 PM EST 07/19/2025 2:35 PM EST Subramony SubJs STORY LAB BLOOD ORDERABLE S Final Result [facility] [address] [place] [address], documented in this encounter Visit Diagnoses Diagnosis Malignant neoplasm of tail of pancreas (CMS/HCC V24, CMS/HCC V28)- Primary Malignant neoplasm of tail of pancreas Malignant neoplasm of upper lobe of right lung (CMS/HCC V24, CMS/HCC V28) documented in this encounter Administered Medications Inactive Administered Medications - up to 3 most recent administrations Medication Order MAR Action Action Date Dose Rate Site sodium chloride 0.9 % bolus 1,000 mL 1,000 mL, intravenous, at 1,000 mL/hr, Administer over 1 Hours, Once, On Sat07/19/25 at 1430, For 1 doseIndications:Malignant neoplasm of tail of pancreas (CMS/HCC V24, CMS/HCC V28) New Bag 07/19/2025 2:15 PM EST 1,000 mL 1000 mL/hr documented in this encounter Orders Medications Ordered That Francois ht Not Have Been Administered Count Last Ordered Date First Ordered Date sodium chloride 0.9 % bolus 1,000 mL 1 11/2024 documented in this encounter Care Teams Working Manager Relationship Specialty Start Date End Date Jung Carranza MD [address] [place] [address] [address] [place], [place] PCP - General Internal Medicine 12/08/18 documented as of this encounter
--- OUTSIDE RECORDS SUMMARY | 2025-07-19 15:15 | XMS_ITS | Encounter Summary ---
Author Organization [facility] Address [address] [place] [address] Care Team Providers Care State Appellate Clerk Name Role Phone Jung Carranza MD Primary Care Provider [phone] Encounter Details Date Type Department Care Team (Late st Contact Info) Description 07/19/2025 3:15 PM EST Office Visit [facility] Hematology Oncology [address] [place] [address] Carmen Felix MD [address] [place] [address] Malignant neoplasm of tail of pancreas (CMS/HCC V24, CMS/HCC V28) (Primary Dx); Chemotherapy-induced peripheral neuropathy (CMS/HCC V24); Anxiety; Chemotherapy-induced fatigue; Family history of pancreatic cancer; Pulmonary nodules; Malignant neoplasm of upper lobe of right lung (CMS/HCC V24, CMS/HCC V28); Overlapping malignant neoplasm of colon (CMS/HCC V24, CMS/HCC V28) Social History Tobacco Use Types Packs/Day Years [...] Alannah Sahni RN documented in this encounter Progress Notes * Carmen Felix MD - 07/19/2025 3:15 PM EST CHIEF COMPLAINT: No chief complaint on file. #1 pancreatic cancer #2 colon cancer #3 history of lung cancer Current regimen #1 FOLFIRINOX-adjuvant 03/2025 IDENTIFIER:Corin Alvarenga is a 75 y.o. female. HPI: The patient returns for follow up of colon cancer, lung cancer, And ongoing management of adjuvant therapy for-adenocarcinoma of the tail of pancreas Discussed regarding the rationale of adjuvant therapy. She has no residual disease. With the use ofFOLFIRINOX regimen, based on clinical trial,, at the median follow-up of 17 months, it improved disease-free survival median 21 months versus 13 months, and 5-year survival of 26% versus 19%. Reviewed with the patient again that going through 6 months of systemic chemotherapy does not provide a guarantee for known recurrence. Patient had drop in WBC count after cycle #4, therefore she received Neulasta injection. Patient reports today that she was experiencing extensive body ache after that and would like to avoid. 2 treatments given with 75% dosing, will plan to drop the dose to 60%, and we can also cover with antibiotics to prevent infections. -Patient has completed 7 cycles of treatment, with some dose reduction, and comes in for additionalhydration. She continues to feel fatigue, and intermittent nausea. She is very anxious. She has antibiotic available, to take along with treatment to start on the day of pump takedown as she was not able to tolerate Neulasta. Plan for restage imaging at 6-month interval, will be after completion of 12 cycles of adjuvant treatment, okay to order after next visit Persistent transaminitis, monitor closely and may need ultrasound of the liver. Anxiety-counseled, improving The following is copied, reviewed and edited Cancer Staging Malignant neoplasm of tail of pancreas (CMS/HCC V24, CMS/HCC V28) Staging form: Exocrine Pancreas, AJCC 8th Edition - Pathologic stage from 01/07/2025: Stage IIA (pT3, pN0, cM0) - Signed by Carmen Felix MD on 02/02/2025 Oncology History Malignant neoplasm of tail of pancreas (CMS/HCC V24, CMS/HCC V28) 12/22/2024 Initial Diagnosis Malignant neoplasm of tail of pancreas (CMS/HCC V24, CMS/HCC V28) 01/07/2025 Cancer Staged Staging form: Exocrine Pancreas, AJCC 8th Edition - Pathologic stage from 01/07/2025: Stage IIA (pT3, pN0, cM0) - Signed by Carmen Felix MD on 02/02/2025 04/05/2025 - Chemotherapy pegfilgrastim-jmdb (FULPHILA) syringe 6 mg, 6 mg, subcutaneous, Once, 1 of 1 cycle Administration: 6 mg (06/17/2025) irinotecan (CAMPTOSAR) 160 mg in dextrose 258 mL chemo IVPB, 90 mg/m2 = 160 mg (50 % of original dose 180 mg/m2), intravenous, Once, 7 of 12 cycles Dose modification: 90 mg/m2 (50 % of original dose 180 mg/m2, Cycle 1, Reason: Dose Not Tolerated),90 mg/m2 (50 % of original dose 180 mg/m2, Cycle 2, Reason: Dose Not Tolerated), 135 mg/m2 (75 % oforiginal dose 180 mg/m2, Cycle 3, Reason: Treatment Parameters Not Met), 108 mg/m2 (60 % of original dose 180 mg/m2, Cycle 6, Reason: Dose Not Tolerated, Comment: neutropenia) Administration: 160 mg (04/05/2025), 150 mg (04/27/2025), 230 mg (05/11/2025), 240 mg (05/25/2025), 240 mg (06/15/2025), 190 mg (06/29/2025), 190 mg (07/13/2025) atropine injection 0.25 mg, 0.25 mg, intravenous, Every 15 min PRN, 7 of 12 cycles Administration: 0.25 mg (04/05/2025), 0.25 mg (04/27/2025), 0.25 mg (04/27/2025), 0.25 mg (05/11/2025),0.25 mg (05/25/2025), 0.25 mg (06/15/2025), 0.25 mg (06/29/2025), 0.25 mg (07/13/2025) leucovorin 350 mg in dextrose 267.5 mL IVPB, 200 mg/m2 = 350 mg (50 % of original dose 400 mg/m2), intravenous, Once, 7 of 12 cycles Dose modification: 200 mg/m2 (50 % of original dose 400 mg/m2, Cycle 1, Reason: Dose Not Tolerated), 200 mg/m2 (50 % of original dose 400 mg/m2, Cycle 2, Reason: Dose Not Tolerated), 300 mg/m2 (75 % of original dose 400 mg/m2, Cycle 3, Reason: Treatment Parameters Not Met), 240 mg/m2 (60 % of original dose 400 mg/m2, Cycle 6, Reason: Dose Not Tolerated, Comment: neutropenia) Administration: 350 mg (04/05/2025), 350 mg (04/27/2025), 500 mg (05/11/2025), 550 mg (05/25/2025), 550 mg (06/15/2025), 450 mg (06/29/2025), 450 mg (07/13/2025) fluorouracil (ADRUCIL) 2,100 mg in sodium chloride 0.9 % 92 mL chemo infusion, 1,200 mg/m2 = 2,100 mg (50 % of original dose 2,400 mg/m2), intravenous, Once, 7 of 12 cycles Dose modification: 1,200 mg/m2 (50 % of original dose 2,400 mg/m2, Cycle 1, Reason: Dose Not Tolerated), 1,200 mg/m2 (50 % of original dose 2,400 mg/m2, Cycle 2, Reason: Dose Not Tolerated), 1,800 mg/m2 (75 % of original dose 2,400 mg/m2, Cycle 3, Reason: Treatment Parameters Not Met), 1,440 mg/m2 (60 % of original dose 2,400 mg/m2, Cycle 6, Reason: Dose Not Tolerated, Comment: neutropenia) Administration: 2,100 mg (04/05/2025), 2,050 mg (04/27/2025), 3,150 mg (05/11/2025), 3,150 mg (05/25/2025), 3,150 mg (06/15/2025), 2,550 mg (06/29/2025), 2,600 mg (07/13/2025) OXALIplatin (ELOXATIN) 75 mg in dextrose 265 mL chemo infusion, 42.5 mg/m2 = 75 mg (50 % of original dose 85 mg/m2), intravenous, Once, 7 of 12 cycles Dose modification: 42.5 mg/m2 (50 % of original dose 85 mg/m2, Cycle 1, Reason: Dose Not Tolerated), 42.5 mg/m2 (50 % of original dose 85 mg/m2, Cycle 2, Reason: Dose Not Tolerated), 63.75 mg/m2 (75 % of original dose 85 mg/m2, Cycle 3, Reason: Treatment Parameters Not Met), 51 mg/m2 (60 % of original dose 85 mg/m2, Cycle 6, Reason: Dose Not Tolerated, Comment: neutropenia) Administration: 75 mg (04/05/2025), 75 mg (04/27/2025), 100 mg (05/11/2025), 100 mg (05/25/2025), 100 mg(06/15/2025), 90 mg (06/29/2025), 90 mg (07/13/2025) palonosetron (ALOXI) injection 250 mcg, 250 mcg, intravenous, Once, 7 of 12 cycles Administration: 250 mcg (04/05/2025), 250 mcg (04/27/2025), 250 mcg (05/11/2025), 250 mcg (05/25/2025), 250 mcg (06/15/2025), 250 mcg (06/29/2025), 250 mcg (07/13/2025) fluorouracil (ADRUCIL) chemo injection 350 mg, 200 mg/m2 = 350 mg (50 % of original dose 400 mg/m2), intravenous, Once, 7 of 12 cycles Dose modification: 200 mg/m2 (50 % of original dose 400 mg/m2, Cycle 1, Reason: Dose Not Tolerated), 200 mg/m2 (50 % of original dose 400 mg/m2, Cycle 2, Reason: Dose Not Tolerated), 300 mg/m2 (75 % of original dose 400 mg/m2, Cycle 3, Reason: Treatment Parameters Not Met), 240 mg/m2 (60 % of original dose 400 mg/m2, Cycle 6, Reason: Dose Not Tolerated, Comment: neutropenia) Administration: 350 mg (04/05/2025), 350 mg (04/27/2025), 500 mg (05/11/2025), 550 mg (05/25/2025), 550 mg (06/15/2025), 450 mg (06/29/2025), 450 mg (07/13/2025) 04/15/2025 - Supportive Therapy HYDRATION AND ELECTROLYTES Plan Provider: Carmen Felix MD 07/01/2024 This is a 74-year-old lady, who is referred for medical oncology evaluation regarding management ofcolon cancer. Also remote history of lung adenocarcinoma. Patient's recent oncology history is reviewed. In November 2020, patient underwent a screening colonoscopy that revealed a mass in the ascending colon. Pathology revealed adenocarcinoma. There was loss of MLH1, PMS2. The BRAF was mutated. She underwent initial staging with a CT abdomen/pelvis on 12/02/2020, that showed 3.7 cm nonobstructing proximal ascending colon mass. There was no evidence of metastatic disease She had initial CEA level 1.6. On 12/20/2020, she underwent right hemicolectomy, robotic, by Dr. Garcia. Pathology revealed 5.6 cm invasive adenocarcinoma G2, invading through muscularis propria intothe pericolorectal tissue. Margins were negative. 20 lymph nodes removed, all negative. pT3 pN0 disease. 02/12/2021, MRI liver demonstrated 3 tiny hepatic cysts, without any metastatic disease. Tumor mutational burden was tested it was at 42.58. She did not receive any adjuvant chemotherapy. She was advised to continue with colonoscopy and CT surveillance. Due to change in insurance, she requested transfer to [facility] To continue colorectalcancer surveillance. Patient reports that she has been feeling well except for fatigue. She has gained some weight. She denies any abdominal discomfort other than the ones due to hernia. She has an appointment for surgery in the next couple of weeks. She denies any bleeding per rectum. She denies any cough or shortnessof breath. No new areas of musculoskeletal pain., Other than mild arthritic pain Her latest imaging studies are from 12/11/2023. CT chest, abdomen, pelvis reviewed Annual restaging imaging is recommended Past medical history Lung cancer bilaterally,-right side-May 2009. Left side-2009 recent colon cancer, hypertension, dyslipidemia, diabetes mellitus type 2, class I obesity, COPD, anterior wall myocardial infarction April 17, 2000 status post LAD stenting with mild LV dysfunction without heart failure-cardiology follows up with [facility] ( Dr Giraldo) Past surgical history Left lobe lobectomy Right lung, wedge resection in 2009 Right hemicolect[facility] performed [facility] Tonsillectomy Family history-negative for malignancies Social history-approximately [id number] smoking history, PLAN -- 74-year-old lady who is on follow-up for colon cancer, diagnosed in December 2020. Patient hasundergone right hemicolectomy surgery, no evidence of metastasis T3 N0 disease I discussed with the patient regarding diagnosis, staging, stage II disease, and NCCN principles regarding the management including surveillance were reviewed in detail with the patient I recommend obtaining lab work CBC-D, CMP, CEA today and at 6-month interval Latest imaging studies from November were reviewed, I recommend obtaining imaging studies at annual interval, will order for November #1 history of colon cancer-restaging imaging-CT abdomen/pelvis #2 history of bilateral lung cancer-request CT chest along with Will plan to do imaging with contrast #3 lab work as reviewed above #4 patient is educated regarding the symptoms/signs of disease recurrence #5 follow-up with surgeon regarding plans for hernia surgery #6 referral to GI, she will be due for 3-year colonoscopy in November 2024 Continue clinic follow-up closely until 5-year fred December 2025 and return to clinic in 6 months. 01/2025- As part of her clinical/imaging surveillance patient had a CT CAP performed on 11/27/2024 this revealed findings as expected, left upper lobectomy, right upper lobe segmentectomy and right hemicolectomy. However unfortunately it did not reveal a pancreatic tail mass 38 x 21 mm. Patient was contacted onthe phone. She was advised regarding the likelihood of this being a pancreatic carcinoma. 12/11/2024-she underwent PET CT scan, this showed FDG avid pancreatic mass, SUV max 4.2 without any evidence of metastatic disease. Patient was referred to surgeon Dr. Diogenes Medrano. He referred her to [facility] pancreatic GI team for EUS and biopsy to obtain tissue diagnosis. Definitive surgical treatment with distal pancreatectomy and splenectomy was recommended. Cardiology/pulmonology clearance was obtained. 12/15/2024-she underwent EGD EUS at [facility], that revealed 2 cm x 3 cm hypoechoic well-circumscribedpancreatic tail mass, that was biopsied and revealed pancreatic adenocarcinoma. She underwent colonoscopy on 12/17/2024. She underwent surgery as recommended on 01/07/2023, and was discharged on 01/11. Further ER visit on 01/19/2025, with suspicion of CVA, underwent further evaluation with CT angiography, MRI and was discharged to home no acute infarct was seen. Chronic ischemic disease was noted. Currently patient reports that she continues to experience pain in the left side of her abdomen. She was not able to eat for about 2 weeks, but now has regained her appetite. She lost about 15 poundsin the interim. She denies any episodes of diarrhea. Activity levels are reduced although able to ambulate and self-care without issue. Of note, patient did have genetic testing performed in 2021 with [facility] team, no deleterious mutations were detected. Family history update-grandmother with pancreatic cancer at age 92 02/2025 - Patient returns accompanied by her daughter, after recovery from surgery for pancreatic cancer. Patient continues to experience intermittent stabbing severe pain in the left flank. She reports improvement in appetite, but has not been able to gain any weight on or 2 pounds. She reports fatigue. Sheis very leery of her ongoing pain issues. She is not using any pain medication other than Tylenol. She did have an oxycodone prescription right after surgery that she is not using. She may benefit from a restaging imaging. Detail discussion today regarding options for adjuvant therapy including FOLFIRINOX, and gemcitabine/Abraxane. The rationale of adjuvant therapy was discussed. It would be appropriate to initiate FOLFIRINOX at reduced dosing 50%, and if well-tolerated to increase it to 75% and continue to complete 12 treatments. The other option is weekly gemcitabine/Abraxane. Side effects were reviewed. After discussion today, patient opts for FOLFIRINOX. She would need a Mediport placed. Will plan to start the treatment in the next 3 to 4 weeks 05/2025 - Patient returns for evaluation prior to cycle #4 of treatment. During cycle #3, she received 75% ofdosing and tolerated fairly well except for intermittent dizziness. Blood pressure was running low today, she feels that it has been low for a long time. Previously she was on antihypertensive not currently. She also reports mild tingling in her fingers, grade 1 neuropathy. Lab work is reviewed, CA 19-9 at 64, will monitor monthly ROS: GENERAL: No malaise, significant weight loss or fever NECK: No lumps, goiter, pain or significant neck swelling RESPIRATORY: No cough, wheezing or shortness of breath CARDIOVASCULAR: No chest pain, leg swelling or palpitations GI: No abdominal discomfort, blood in stools or black stools MUSCULOSKELETAL: No joint pain or swelling, back pain, or muscle pain. HEMATOLOGY/LYMPHOLOGY No prolonged bleeding, easy bruisability or swollen nodes Other Systems review is non contributory PAST MEDICAL HISTORY: Active Ambulatory Problems Diagnosis Date Noted Asthma-COPD overlap syndrome ([facility]/HCC V24, [facility] V28) 11/06/2017 COPD (chronic obstructive pulmonary disease) (CMS/HCC V24, CMS/HCC V28) 11/06/2017 Gastroesophageal reflux 11/06/2017 Hiatal hernia 11/06/2017 Hyperlipidemia 11/06/2017 Pulmonary nodules 11/06/2017 Malignant neoplasm of tail of pancreas (CMS/HCC V24, [facility] V28) 12/22/2024 TIA (transient ischemic attack) 01/19/2025 Family history of pancreatic cancer 02/01/2025 Adenocarcinoma of lung ([place] V24, [facility] V28) 06/01/2009 Lung cancer ([place] V24, [place] V28) 02/01/2025 Malignant neoplasm of ascending colon ([place] V24, [place] V28) 02/21/2021 Malignant neoplasm of upper lobe of right lung ([place] V24, [facility] V28) 07/01/2024 Osteoporosis 02/16/2009 Left upper quadrant abdominal pain 03/08/2025 Transaminitis 04/26/2025 Anxiety 04/26/2025 Chemotherapy-induced fatigue 04/26/2025 Chemotherapy-induced peripheral neuropathy ([place] V24) 05/24/2025 Drug therapy 07/01/2025 Resolved Ambulatory Problems Diagnosis Date Noted No Resolved Ambulatory Problems Past Medical History: Diagnosis Date Asthma 11/06/2017 Colon cancer ([place] V24, [place] V28) Diabetes mellitus ([place] V24, [place] V28) GERD (gastroesophageal reflux disease) Heart disease History of lung cancer 11/06/2017 Liver disease [place], old Migraines Shortness of breath SOCIAL HISTORY: Social History Tobacco Use Smoking status: Former Current packs/day: 1.50 Types: Cigarettes Smokeless tobacco: Never Substance Use Topics Alcohol use: Not Currently FAMILY HISTORY: No family history on file. Current Outpatient Medications: albuterol HFA (PROAIR HFA ; PROVENTIL HFA ; VENTOLIN HFA) 90 mcg/actuation inhaler, Inhale 2 puffs by mouth every 4 (four) hours if needed., Disp: , Rfl: jxokdtznld-qfvbxczo-aacrbepsye (Breztri Aerosphere) 160-9-4.8 mcg/actuation HFA aerosol inhaler inhaler, Inhale 2 puffs by mouth 2 (two) times a day., Disp: , Rfl: calcium carbonate/vitamin D3 (CALCIUM + D ORAL), Take by mouth., Disp: , Rfl: cetirizine (ZyrTEC) 10 mg capsule, 1 (one) time each day., Disp: , Rfl: clopidogreL (PLAVIX) 75 mg tablet, Take 1 tablet (75 mg total) by mouth 1 (one) time each day., Disp: , Rfl: dexAMETHasone (DECADRON) 4 mg tablet, Take 8 mg (2 tablets) once daily, starting the day after treatment, for two days. Take in the morning with food., Disp: 30 tablet, Rfl: 1 ezetimibe (ZETIA) 10 mg tablet, Route: Take 10 mg by mouth daily. - Oral, Disp: , Rfl: gabapentin (NEURONTIN) 300 mg capsule, Take 1 capsule (300 mg total) by mouth if needed., Disp: , Rfl: insulin lispro (HumaLOG KwikPen) 100 unit/mL injection pen, Inject 1-6 Units under the skin 3 (three) times a day before meals. Administer within 15 minutes of a meal. If glucose is less than or equal to 150, administer 0 units. For glucose 151-200, administer 1 unit. Glucose 201-250, administer 2 units. Glucose 251-300, administer 3 units. Glucose 301-350, administer 4 units. Glucose 351- 400, administer 5 units. Glucose greater than 400, administer 6 units, Disp: 15 mL, Rfl: 0 loperamide (IMODIUM A-D) 2 mg tablet, Take 1 tablet (2 mg total) by mouth 1 (one) time. Suggested by impact retail service merchandiser-per patient for diarrhea. IBS, Disp: , Rfl: LORazepam (ATIVAN) 0.5 mg tablet, - Route: Take 0.5 mg by mouth every 6 hours as needed. - Oral, Disp: , Rfl: multivitamin (MULTIPLE VITAMINS ORAL), Take by mouth., Disp: , Rfl: nystatin (Nyamyc) 100,000 unit/gram powder, APPLY TO THE AFFECTED AREAS IN THE BREAST TWICE DAILY MAINTENANCE., Disp: , Rfl: ondansetron (ZOFRAN) 8 mg tablet, Take 1 tablet (8 mg total) by mouth 3 (three) times a day if needed for nausea or vomiting., Disp: 60 tablet, Rfl: 6 pen needle, diabetic (BD Ultra-Fine Short Pen Needle) 31 gauge x 5/16 needle, 1 each 4 (four) times a day (before meals and nightly)., Disp: 120 each, Rfl: 0 prochlorperazine (COMPAZINE) 10 mg tablet, Take 1 tablet (10 mg total) by mouth every 6 (six) hoursif needed for nausea or vomiting., Disp: 60 tablet, Rfl: 3 rosuvastatin (CRESTOR) 40 mg tablet, , Disp: , Rfl: Trintellix 10 mg tablet, , Disp: , Rfl: Allergies Allergen Reactions Aspirin Swelling Latex Itching Levofloxacin Itching PHYSICAL EXAM: Visit Vitals OB Status Postmenopausal Smoking Status Former APPEARANCE: Alert and in no acute distress stable weight For weight gain, 6 pounds EYES: PERRL, conjunctiva pink and sclera are Normal without icterus ORAL CAVITY: No erythema or exudates NECK: Neck supple, no adenopathy, HEART: RRR with normal S1 and S2, no murmurs, no gallops, no JVD appreciated LUNG: clear to auscultation bilaterally Percussion note normal LYMPH NODES: No palpable superficial adenopathy ABDOMEN: Bowel sounds normoactive, no bruits, soft, tender left flank of abdomen, without organomegaly or palpable masses EXTREMITIES: Extremities warm and well perfused without clubbing, cyanosis, rash or edema NEURO: Oriented X 3, no focal weakness; sensation is normal LABS: Review of Lab results , interpreted Lab Results Component Value Date WBC 4.0 (L) 07/19/2025 HGB 11.9 07/19/2025 HCT 35.6 07/19/2025 MCV 94.9 07/19/2025 PLT 338 07/19/2025 Lab Results Component Value Date NA 137 07/19/2025 K 4.2 07/19/2025 CL 108 07/19/2025 CO2 24 07/19/2025 GLUCOSE 264 (H) 07/19/2025 BUN 29 (H) 07/19/2025 CREATININE 1.04 07/19/2025 CALCIUM 8.2 (L) 07/19/2025 PROT 5.1 (L) 07/19/2025 ALBUMIN 2.7 (L) 07/19/2025 BILITOT 1.0 07/19/2025 AST 85 (H) 07/19/2025 ALT 126 (H) 07/19/2025 PHOS 2.2 (L) 01/11/2025 MG 2.0 04/12/2025 ALKPHOS 73 07/19/2025 EGFR 56 (L) 07/19/2025 Result Notes Component Addendum Estimated size of IPMN - 0.7 cm. Note: Estimated size of IPMN is based on IPMN present on two consecutive slide sections with average slide thickness of 0.35 cm. Addendum electronically signed by Aline Palacio MD on 01/12/2025 at 1309 Final Diagnosis A. Pancreas, distal pancreatectomy and [...] intradepartmental consensus conference with consensus agreement in IPMN,low grade, present at distal pancreatic parenchymal margin, and pancreatic margin is negative for invasive adenocarcinoma. Immunostains for MMR proteins and HER2 will be performed Encounter info: [id number], [facility] [place] 12/15/2024 Contributor system: [employer] * Final Report * Surgical Pathology Patient Name: CORIN ALVARENGA Lab Patient : 1950 (Age: 74) Collection Date: 12/15/2024 Accession Date: 12/16/2024 Sign Out Date: 12/18/2024 Tissue Source: 1:GASTRIC ANTRUM BIOPSIES 2:GASTRIC BODY BIOPSIES 3:GEJ BIOPSIES 4:PANCREATIC TAIL MASS FNB Final Diagnosis: 1. Stomach, antral, biopsy: - Gastric antral mucosa with reactive gastropathy. - No morphologic evidence of Helicobacter pylori micro-organisms. 2. Stomach, body, biopsy: - Gastric antral mucosa with erosive reactive gastropathy. - No morphologic evidence of Helicobacter pylori micro-organisms. 3. Gastroesophageal junction, biopsy: - Esophageal squamous and inflamed cardiofundic mucosa with reactive epithelial changes, negative for intestinal metaplasia or dysplasia. 4. Pancreas, tail, mass, biopsy: - Moderately differentiated adenocarcinoma involving the pancreas. Note: Tumor cells are positive for CK7, CK20 and CDX2, and negative for TTF1. These immunohistochemical findings can be seen in primary pancreatic tumors; however, the diffuse CK20 positivity can be associated with colonic tumors too (history of colon and lung cancer noted). Correlate with clinicaland radiologic findings. Review of Imaging, interpreted IR Insert Tunneled CVAD w Subq Port More 5yrs Right History: Cancer Procedure performed: 1. Ultrasound and [...] placed supine on the angiographic table and theright lower neck and upper chest were draped [...] and placed within the pocket. An 8 Bengali peel-away sheath with a hemostatic valve placed [...] Signed Date: 03/23/2025 14:17 ET Workstation ID: [id number] Transcribed By: Self Edit Transcribed Date: 03/23/2025 14:17 ET Review of External Documentation Notes from surgery, notes from GI Tests ordered - No orders of the defined types were placed in this encounter. IMPRESSION: 1. Malignant neoplasm of tail of pancreas (CMS/HCC V24, CMS/HCC V28) 2. Chemotherapy-induced peripheral neuropathy (CMS/HCC V24) 3. Anxiety 4. Chemotherapy-induced fatigue 5. Family history of pancreatic cancer 6. Pulmonary nodules 7. Malignant neoplasm of upper lobe of right lung (CMS/HCC V24, CMS/HCC V28) 8. Overlapping malignant neoplasm of colon (CMS/HCC V24, CMS/HCC V28) PLAN: 75 -year-old lady with a new diagnosis of pancreatic cancer 3 prior malignancies, right, left sided lung cancer, different histologies, as well as colon cancer, that she is undergoing surveillance Unfortunately now with new diagnosis of adeno carcinoma within the pancreatic tail Completed surgery for localized disease Detail discussion today regarding the diagnosis, staging, i.e. stage IIa disease, and treatment options NCCN guidelines were reviewed in detail, including options for systemic chemotherapy The intent of chemotherapy is curative, will improve the probability of disease- free survival 26% versus 19% at 5 years Median survival will improve to 21 months versus 13 months #1 systemic chemotherapy The options of FOLFIRINOX treatment versus gemcitabine/Abraxane were discussed Regarding FOLFIRINOX-Can start with 50% dosing, tolerated 2 cycles well Increase dose to 75% to complete a total of 12 cycles Dose increased to 75% from cycle #3/#4 Due to poor tolerance to Neulasta, will cancel Neulasta injection for the next few cycles, Reduce dosing to 60% Will cover with antibiotics Augmentin twice daily, patient is allergic to levofloxacin She has available prescription, 875 mg twice daily x 1 week If she is experiencing neutropenia again, may delay cycles to 3 weeks rather than 2 weeks, however patient is keen to complete treatments on time It is likely to reduce disease burden, and prolong life expectancy. In the adjuvant context, it can increase the cure rate. Patient is due for cycle #8, she has been able to continue treatments in a timely manner Lab work requested CBC-D, CMP, CA 19-9 - stable Glucose noted to be quite, although patient asymptomatic high at 451, she continues on insulin per scale May need an endocrinology referral, will discuss #2 genetic testing-reports from 2021 from [facility] reviewed, no deleterious mutations Would benefit from Caris testing from the tumor, results pending #3 Anxiety-counseled with improvement #4 transaminitis-May need ultrasound of the liver if it persists #5 hypotensive episodes, IV hydration as needed in the infusion room 1 to 2 L up to twice a week Immunisation -- OK to do in week in between treatment Influenza, and Diphtheria Patient and daughter are in agreement with this plan Follow-up in 4 weeks and sooner if new issues arise, patient agrees Pain Control--using Tylenol left-sided abdominal pain Health Care Proxy--her daughter Carmen Felix MD Cc Jung Carranza MD documented in this encounter Plan of Treatment Upcoming Encounters Date Type Department Care Team (Late st Contact Info) Description 07/26/2025 10:00 AM EST Appointment [facility] [address] [place] [phone] 07/27/2025 8:30 AM EST Appointment [facility] [address] [place] [phone] 08/16/2025 10:45 AM EST Office Visit [facility] Hematology Oncology [address] [place] [phone] Carmen Felix MD [address] [place] [phone] documented as of this encounter Visit Diagnoses Diagnosis Malignant neoplasm of tail of pancreas (CMS/HCC V24, CMS/HCC V28)- Primary Malignant neoplasm of tail of pancreas Chemotherapy-induced peripheral neuropathy (CMS/HCC V24) Anxiety Anxiety state, unspecified Chemotherapy-induced fatigue Family history of pancreatic cancer Family history of malignant neoplasm of gastrointestinal tract Pulmonary nodules Other diseases of lung, not elsewhere classified Malignant neoplasm of upper lobe of right lung (CMS/HCC V24, CMS/HCC V28) Overlapping malignant neoplasm of colon (CMS/HCC V24, CMS/HCC V28) documented in this encounter Care Teams State Appellate Clerk Relationship Specialty Start Date End Date Jung Carranza MD [address] [facility] [address] [place], [place] PCP - General Internal Medicine 12/08/18 documented as of this encounter
--- NOTE | 2025-07-23 13:24 | MHC.OFFVIS ---
Vital Signs 07/23/25 13:27 Height 5 ft 4 in Weight 164 lb 3.91 oz BMI 28.2 BP 94/50 L Blood Pressure Location Rt brachial Position Sitting Pulse 82 Pulse Source Pulse Oximeter Pulse Oximetry (%) 95 Oxygen Delivery Method Room Air Intake Visit Reasons: Type II diabetes Intake Note: Patient present today to follow up on Type 2 Diabetes Mellitus. Last Diabetic Eye exam: Within the year Last Podiatry Visit: Does not see a Associate Professor Of Forestry Random Glucose: 199 mg/dL HgA1C: 9.0%, 06/01/2025 [place]ck Hammerer Required: No Accompanied by: Self / Same As Patient Allergies latex Allergy (Severe, Verified 07/23/25 13:28) Swelling levofloxacin (Levaquin) Allergy (Severe, Verified 07/23/25 13:28) Swelling Aspirin Allergy (Severe, Uncoded 07/23/25 13:28) Swelling Medication List - Last Reconciled 07/23/25 by RALPH Ng acetaminophen-codeine 300-30 mg 1 tab PO BID PRN 10 days acetone (urine) test (Ketone Urine Test strips) As directed albuterol sulfate 90 mcg/actuation 2 inhalations inhalation Q6H PRN 30 days blood sugar diagnostic (Contour Next Test Strips) As directed to test glucose three times daily. blood-glucose meter (Contour Next Gen Meter) As directed blood-glucose sensor (Dexcom G7 Sensor device) apply new sensor every 10 days as directed blood-glucose,cake puller,cont (Dexcom G7 Flight Purser) As directed to monitor blood continuously xpjcwwozai-vtoyinxo-bkicvhwadl 160-9-4.8 mcg/actuation (Breztri Aerosphere) 2 inhalations inhalation BID 30 days calcium carbonate-vitamin D3 600 mg-5 mcg (200 unit) 1 tab PO DAILY cetirizine (Zyrtec) 10 mg PO BID PRN cholecalciferol (vitamin D3) (Vitamin D3) 50 mcg PO DAILY clopidogrel 75 mg PO QPM ezetimibe 10 mg PO DAILY famotidine (Pepcid) 40 mg PO BEDTIME PRN gabapentin 300 mg PO DAILY PRN glucose (Dex4 Glucose) 16 grams (4 x 4 gram) PO Q15M PRN insulin degludec (Tresiba FlexTouch U-200 insulin) 20 units subcut BEDTIME insulin lispro <120 0 units 121-150 10 units 151-200 12 unit 201-250 14 units 251-300 16 units 301-350 18 units 351-400 20 units >400 22 units and call the office lancets (Microlet Lancet) As directed to check blood glucose three times daily. loperamide (Imodium A-D) 2 mg PO BID lorazepam 0.5 mg PO BID PRN multivitamin 1 tab PO DAILY nitroglycerin 0.4 mg sublingual DIRECTED PRN nystatin (Nyamyc) 1 appl topical BID pen needle, diabetic As directed 4 times daily rosuvastatin 40 mg PO BEDTIME vortioxetine 10 mg PO BEDTIME zolpidem (Ambien) 10 mg PO BEDTIME 30 days HPI Comments Details: This is a 75-year-old female with a past medical history of type 2 diabetes, CHF, CAD, hiatal hernia with GERD, lung cancer, stage II adenocarcinoma of the colon, carotid artery stenosis, COPD, pulmonary nodules and recently diagnosed pancreatic cancer s/p tumor resection and splenectomy in December presenting for diabetic management. She was diagnosed with diabetes about 5 years ago. Her mother had type 2 diabetes. Surgeon -Dr. Medrano Oncologist- Dr. Ray. Patient says she had pancreatic mass resected and spleen removed on 01/07/2025 at [facility]. She is on chemotherapy every other week and receives a steroid infusion with chemo. She has fatigue, increased appetite, brain fog, neuropathy. Hemoglobin A1c 9.0% 06/01/25. I reviewed her CGM data for the last 14 days: G AR 9.7% down from 10.5% 56% very high 23% high 21% in range 0% hypoglycemia She has postprandial hyperglycemia and nocturnal hyperglycemia. Current medication regimen: Tresiba to 18 units nightly She has a sliding scale for lispro before meals 3 times a day, but she has been using the scale on chemo weeks and then using an older scale for breakfast and lunch when she does not receive chemo. This week she did not receive chemo in her G AR was 9.3%. She has been taking 14 units of Tresiba on weeks she does not receive chemo. Her sensor has a alerted her to lows, but she did it fingersticks, and this was inaccurate. Past medications: Mounjaro was discontinued due to risk of pancreatitis. Rybelsus was discontinued due to abdominal pain in the past. She never tried metformin because she was concerned about potential side effects due to chronic diarrhea. Jardiance discontinued due to yeast infections. Hypoglycemia symptoms: none Hyperglycemia symptoms: fatigue Eye exam: [facility], no complications per patient last exam Microvascular complications: neuropathy, nephropathy (renal insufficiency) Macrovascular complications: CAD and PAD (Dr. Freitas) Hyperlipidemia is treated with rosuvastatin 40 mg at bedtime. ROS: Constitutional: Interval weight gain. No weight loss. Denies fevers and chills. Respiratory: No shortness of breath Cardiovascular: No chest pain Neurologic: No headache, dizziness, syncope Endocrine: see HPI Physical exam: Constitutional: Alert, in no distress. Neck: Supple, Full range of motion. No lymphadenopathy. No palpable thyroid masses. Respiratory: Clear to auscultation. Cardiovascular: S1 S2 regular. No murmurs. Psychiatric: Normal affect [facility] Medical History (Updated 06/03/25 @ 21:06 by RALPH Ng) Decreased GFR Pancreatic cancer CHF (congestive heart failure) Renal insufficiency Peripheral sensory neuropathy due to type 2 diabetes mellitus Type II diabetes mellitus History of transfusion of packed red blood cells Migraine History of placement of stent in LAD coronary artery Osteoporosis Hyperlipidemia Depression CAD (coronary artery disease) Sleep apnea On anticoagulant therapy TIA (transient ischemic attack) Myocardial infarction Obesity Diabetes Dyslipidemia History of colon cancer HTN (hypertension) Carotid stenosis, asymptomatic GERD (gastroesophageal reflux disease) Colon cancer Pre-op chest exam Lung cancer Pulmonary nodules Dyspnea COPD (chronic obstructive pulmonary disease) Pulmonary nodule Surgical History History of surgery History of incisional hernia repair (07/06/24) Hx of tonsillectomy Hx of tubal ligation History of dental surgery Hx of cardiac catheterization History of lobectomy of lung Family History Mother Stroke Diabetes Father Alcoholic cirrhosis of liver Social History Household Members: None Housing: House Are you a primary pediatric critical care nurse to a significant other at home: No Do you presently have visiting nurse or other home services: No Patient Tobacco Use Status: Former Tobacco user Tobacco use type: Cigarette Years Smoked: 20+ Years Second Hand Smoke Exposure: No service: No Physical Exam Vital Signs: Last Vital Signs Pulse 82 07/23/25 13:27 BP 94/50 L 07/23/25 13:27 Pulse Ox 95 07/23/25 13:27 Oxygen Delivery Method Room Air 07/23/25 13:27 BMI result Body Mass Index 28.2 Results Reviewed Results Reviewed: Laboratory Last Values Glucose (Clinic) 199 mg/dL (60-115) H 07/23/25 13:34 Laboratory Tests 05/06/24 05/13/24 23:31 11:56 Plt Count 241 Creatinine 1.13 1.10 Estimated GFR 47 49 AST 17 ALT 21 Laboratory Tests 01/26/25 02/16/25 13:14 10:48 Creatinine 1.16 Estimated GFR 46 Hgb A1c (Clinic) 9.1 H C-Peptide 5.09 H Triglycerides 159 H Cholesterol 136 LDL Cholesterol, Calc 58 HDL Cholesterol 47 TSH 2.51 Assessment & Plan Assessment & Plan (1) Type II diabetes mellitus: Code(s): E11.9 - Type 2 diabetes mellitus without complications Category: Medical Qualifiers: Diabetes mellitus usp insulin use: without usp use Diabetes mellitus complication status: with kidney complications Diabetes mellitus complication detail: with nephropathy Qualified Code(s): E11.21 - Type 2 diabetes mellitus with diabetic nephropathy (2) Pancreatic cancer: Code(s): C25.9 - Malignant neoplasm of pancreas, unspecified Category: Medical Plan In summary this is a 75-year-old female with type 2 diabetes with micro and macrovascular complications and pancreatic cancer who underwent tumor resection and splenectomy and is currently on chemotherapy and steroids. Target A1c </=8%. She is experiencing side effects to chemotherapy. She also has polyphagia due to steroids. Patient has been using different sliding scales and different doses of Tresiba. Reviewed administration of medications. Advised her to use the following regimen consistently: Increase Tresiba to 20 units nightly. Lispro sliding scale and administer 15 minutes before meals: <120 0 units 121-150 10 units 151-200 12 unit 201-250 14 units 251-300 16 units 301-350 18 units 351-400 20 units >400 22 units and call the office If you experience low blood sugar (under70), treat this by eating a chewable fruit candy like skittles or jelly beans (about 8 pieces), 4 ounces (1/2 cup) of fruit juice (not diet), 1 tablespoon of honey or 4 glucose tablets. If your blood sugar is under 50, take double the amount of one of the above. Recheck your blood sugar in 15 minutes. Remain off GLP 1 due to risk of pancreatitis. Patient deferred short term follow up but will see me in 6 weeks and call sooner if she is having blood sugars over 350 or under 70. Orders: Orders AMB Glucose Monitoring Today E11.9 - Type 2 diabetes mellitus without complications Patient Instructions: Increase Tresiba to 20 units nightly. Lispro sliding scale and administer 15 minutes before meals: <120 0 units 121-150 10 units 151-200 12 unit 201-250 14 units 251-300 16 units 301-350 18 units 351-400 20 units >400 22 units and call the office If you experience low blood sugar (under70), treat this by eating a chewable fruit candy like skittles or jelly beans (about 8 pieces), 4 ounces (1/2 cup) of fruit juice (not diet), 1 tablespoon of honey or 4 glucose tablets. If your blood sugar is under 50, take double the amount of one of the above. Recheck your blood sugar in 15 minutes. Coding Level of Care Code Est Pt Level 5 (74699) Diagnoses Type 2 diabetes mellitus with diabetic nephropathy, without long-term current use of insulin E11.21 Diabetes mellitus usp insulin use: without usp use Diabetes mellitus complication status: with kidney complications Diabetes mellitus complication detail: with nephropathy Pancreatic cancer C25.9 Time Spent (min) 63 Comment Direct patient care, completing documentation
[2025-07-23 13:27] VITALS: BP 94/50; PULSE 82; O2SAT 95; BMI 28.2
[2025-07-23 13:42] LABS: Glucose, Whole Blood 199 mg/dL (60-115)
--- OUTSIDE RECORDS SUMMARY | 2025-07-23 15:28 | XMS_ITS | Encounter Summary ---
Author Organization [facility] Address [address] [place] [address] Phone Care Team Providers Care Airborne Missions Systems Name Role Phone Evangelist Gabriel MD Unavailable [phone] Vignesh Farias MD Unavailable [phone] Dixon Quiñones NP Unavailable [phone] Hong Maddox MD Unavailable [phone] Kym Carranza MD Primary Care Provide r Self-Referred, Patient Unavailable Unavailab Pravin Leung MD Unavailable [phone] Johana Amador MD Unavailable [phone] Johana Amador MD Primary Care Provid er Kym Carranza MD Primary Care Provide r Carmen Felix MD Unavailable [phone] Encounter Details Date Type Department Care Team ([facility] st Contact Info) Description 12/15/2020 Telephone [facility] [address] [place] [address] Kendall Garcia MD, MPH [address] [facility]3rd [place] [address] [email or web address] Social History Tobacco Use Types Packs/Day [...] Description 12/28/2025 1:20 PM EDT Office Visit [facility] [address] [place] [address] [address]rd Floor, [address] [place] [address] Prince Freitas MD [address] [place] [address] [email or web address] documented as of this encounter Visit Diagnoses Not on filedocumented in this encounter Care Teams Airborne Missions Systems Relationship Specialty Start Date End Date Kym Carranza MD [address] [place] [address] PCP - General Internal Medicine 11/28/20 05/04/21 Johana Amador MD [address] [place] [address] PCP - General Gastroenterology 05/05/21 12/21/21 Kym Carranza MD [address] [place] [address] PCP - General Internal Medicine 12/22/21 Evangelist Gabriel MD [address] [place] [address], [address] [address] Historical LMR Provider 07/04/17 09/23/21 Vignesh Farias MD [address] [facility] [address] [place] [address] [email or web address] Historical LMR Provider 07/04/17 09/23/21 Dixon Quiñones NP [address] [place] [address] [address] [place] [address] Historical LMR Provider 07/04/17 2 Hong Maddox MD [address] [place] [address] [email or web address] Historical LMR Provider 07/04/17 Self-Referred, Patient Referring Physician 11/28/20 Pravin Landis MD [address] [place] [address] [email or web address] Primary Oncologist Medical Oncology 02/08/21 Johana Amador MD [address] [address] Referring Physician Gastroenterology 03/27/21 Carmen Felix MD [address] [place] [address] Ramos Medical Oncology 03/11/24 documented as of this encounter Additional Source Comments The information contained in this document represents components of the legal health record. It is not the complete legal health record.[facility]
--- OUTSIDE RECORDS SUMMARY | 2025-07-23 15:28 | XMS_ITS | Clinical Summary ---
Author Organization [facility] Address [address] [place] [address] Care Team Providers Care Board Certified Behavioral Analyst Name Role Phone Jung Carranza MD Primary Care Provider [phone] Allergies Active Allergy Reactions Criticality Noted Date [...] age to complete this topic Care Teams Board Certified Behavioral Analyst Relationship Specialty Start Date End Date Bashiruddin, Jung, MD [address] [facility] [address] [place] [address] PCP - General Internal Medicine 02/12/24
--- OUTSIDE RECORDS SUMMARY | 2025-07-23 15:28 | XMS_ITS | Encounter Summary ---
Author Organization [facility] Address [address] [place] [address] Phone Care Team Providers Care Air Control Electronics Operator Name Role Phone Evangelist Gabriel MD Unavailable Vignesh Farias MD Unavailable [phone] Dixon Quiñones NP Unavailable Hong Maddox MD Unavailable [phone] Pravin Landis MD Unavailable Johana Amador MD Unavailable [phone] Johana Amador MD Primary Care Provid er Kym Carranza MD Primary Care Provide r Carmen Felix MD Unavailable [phone] Encounter Details Date Type Department Care Team (Late st Contact Info) Description 08/29/2021 Procedure Pass [address] [address] Social History Tobacco Use Types Packs/Day Years [...] Description 12/28/2025 1:20 PM EDT Office Visit [facility] [address] [facility] 3rd Floor, [address] [place] [address] Prince Freitas MD [address] [address] documented as of this encounter Visit Diagnoses Not on filedocumented in this encounter Care Teams Air Control Electronics Operator Relationship Specialty Start Date End Date Johana Amador MD [address] [place] [address] PCP - General Gastroenterology 05/05/21 12/21/21 Kym Carranza MD [address] [place] [address] PCP - General Internal Medicine 12/22/21 Evangelist Gabriel MD [address] [place] [address] Historical LMR Provider 07/04/17 09/23/21 Vignesh Farias MD [address] [place] [address] Historical LMR Provider 07/04/17 09/23/21 Dixon Quiñones NP [address] [place] [address] [phone] Historical LMR Provider 07/04/17 2 Hong Maddox MD [address] [address] [email or web address] Historical LMR Provider 07/04/17 Pravin Landis MD [address] [place] [address] [email or web address] Primary Oncologist Medical Oncology 02/08/21 Johana Amador MD [address] [place] [address] Referring Physician Gastroenterology 03/27/21 Carmen Felix MD [address] [place] [phone] Ramos [email or web address] Medical Oncology 03/11/24 documented as of this encounter Additional Source Comments The information contained in this document represents components of the legal health record. It is not the complete legal health record.[facility]
--- OUTSIDE RECORDS SUMMARY | 2025-07-23 15:28 | XMS_ITS | Encounter Summary ---
Author Organization [facility] Address [address] [facility] [address] [place] [address] Phone Care Team Providers Care Director Of Preclinical Research Name Role Phone Hong Maddox MD Unavailable [phone] Pravin Landis MD Unavailable [phone] Johana Amador MD Unavailable [phone] Kym Carranza MD Primary Care Provide r Carmen Felix MD Unavailable [phone] Encounter Details Date Type Department Care Team (Late st Contact Info) Description 01/04/2022 Procedure Pass [facility] Endoscopy Department [address] [place] [address] Social History Tobacco Use Types Packs/Day Years [...] Description 12/28/2025 1:20 PM EDT Office Visit [facility] [address] [place] [address] 3rd Floor, [address] [place] [address] Prince Freitas MD [address] [facility], [address] [place] [address] [email or web address] documented as of this encounter Visit Diagnoses Not on filedocumented in this encounter Care Teams Director Of Preclinical Research Relationship Specialty Start Date End Date Kym Carranza MD [address] [place] [address] 1 [place] [address] PCP - General Internal Medicine 12/22/21 Hong Maddox MD [address] [address] [email or web address] Historical LMR Provider 07/04/17 Pravin Landis MD [address] [place] [address] [email or web address] Primary Oncologist Medical Oncology 02/08/21 Johana Amador MD [address] [address] Referring Physician Gastroenterology 03/27/21 Carmen Felix MD [address] [place] [address] Ramos Medical Oncology 03/11/24 documented as of this encounter Additional Source Comments The information contained in this document represents components of the legal health record. It is not the complete legal health record.[facility]
--- OUTSIDE RECORDS SUMMARY | 2025-07-23 15:28 | XMS_ITS | Encounter Summary ---
Author Organization [facility] Address [address] [facility] [address] [place] [address] Phone Care Team Providers Care Manager Baby Name Role Phone Hong Maddox MD Unavailable [phone] Pravin Landis MD Unavailable Johana Amador MD Unavailable [phone] Kym Carranza MD Primary Care Provide r Carmen Felix MD Unavailable [phone] Encounter Details Date Type Department Care Team (Late st Contact Info) Description 03/13/2022 Procedure Pass [facility], [facility], [place] [address] [facility], [address] [place] [address] Social History Tobacco Use Types [...] Description 12/28/2025 1:20 PM EDT Office Visit [facility] [address] [place] [address] 3rd Floor, [address] [place] [address] Prince Freitas MD [address] [facility], [address] [place] [address] [email or web address] documented as of this encounter Visit Diagnoses Not on filedocumented in this encounter Care Teams Manager Baby Relationship Specialty Start Date End Date Kym Carranza MD [address] [place] [address] 1 [place] [address] PCP - General Internal Medicine 12/22/21 Hong Maddox MD [address] [place] [address] [email or web address] Historical LMR Provider 07/04/17 Pravin Landis MD [address] [place] [address] [email or web address] Primary Oncologist Medical Oncology 02/08/21 Johana Amador MD [address] [place] [address] Referring Physician Gastroenterology 03/27/21 Carmen Felix MD [address] [place] [phone] Ramos Medical Oncology 03/11/24 documented as of this encounter Additional Source Comments The information contained in this document represents components of the legal health record. It is not the complete legal health record.[facility]
--- OUTSIDE RECORDS SUMMARY | 2025-07-23 15:28 | XMS_ITS | Encounter Summary ---
Author Organization [facility] Address [address] [place] [address] Phone Care Team Providers Care Personal Chef Name Role Phone Evangelist Gabriel MD Unavailable [phone] Vignesh Farias MD Unavailable [phone] Dixon Quiñones NP Unavailable [phone] Hong Maddox MD Unavailable [phone] Kym Carranza MD Primary Care Provide r Self-Referred, Patient Unavailable Unavailab Pravin Leung MD Unavailable [phone] Johana Amador MD Unavailable [phone] Johana Amador MD Primary Care Provid er Kym Carranza MD Primary Care Provide r Carmen Felix MD Unavailable [phone] Encounter Details Date Type Department Care Team (Late st Contact Info) Description 12/20/2020 Procedure Pass [facility] Periop [address] [place], [place] [id number] Social History Tobacco Use Types Packs/Day Years [...] 7:00 PM EDT Derrick Palacio RN * [place] Suicide Severity Rating Scale (Screener/Recent Self-Report) Question [...] Description 12/28/2025 1:20 PM EDT Office Visit [facility] [address] [place] [address] [address] [facility], [address] [place] [address] Prince Freitas MD [address] [place] [address] [email or web address] documented as of this encounter Visit Diagnoses Not on filedocumented in this encounter Care Teams Personal Chef Relationship Specialty Start Date End Date Kym Carranza MD [address] [place] [address] [address] [place] [address] PCP - General Internal Medicine 11/28/20 05/04/21 Johana Amador MD [address] [place] [address] PCP - General Gastroenterology 05/05/21 12/21/21 Kym Carranza MD [address] [address] PCP - General Internal Medicine 12/22/21 Evangelist Gabriel MD [address] [place] [address], [address] [address] [email or web address] Historical LMR Provider 07/04/17 09/23/21 Vignesh Farias MD [address] [place] [address] [email or web address] Historical LMR Provider 07/04/17 09/23/21 Dixon Quiñones NP [address] [place] [phone] Historical LMR Provider 07/04/17 2 Hong Maddox MD [address] [place] [address] [email or web address] Historical LMR Provider 07/04/17 Self-Referred, Patient Referring Physician 11/28/20 Pravin Landis MD [address] [place] [address] [email or web address] Primary Oncologist Medical Oncology 02/08/21 Johana Amador MD [address] [place] [phone] Referring Physician Gastroenterology 03/27/21 aCrmen Felix MD [address] [place] [phone] [email or web address] Medical Oncology 03/11/24 documented as of this encounter Additional Source Comments The information contained in this document represents components of the legal health record. It is not the complete legal health record.[facility]
--- OUTSIDE RECORDS SUMMARY | 2025-07-23 15:28 | XMS_ITS | Encounter Summary ---
Author Organization [facility] Address [address] [place] [address] Phone Care Team Providers Care Electrician Bus Name Role Phone Evangelist Gabriel MD Unavailable Vignesh Farias MD Unavailable [phone] Dixon Quiñones NP Unavailable Hong Maddox MD Unavailable [phone] Pravin Landis MD Unavailable [phone] Johana Amador MD Unavailable [phone] Johana Amador MD Primary Care Provid er Kym Carranza MD Primary Care Provide r Carmen Felix MD Unavailable [phone] Encounter Details Date Type Department Care Team (Late st Contact Info) Description 08/29/2021 Procedure Pass [address] [address] Social History Tobacco Use Types Packs/Day Years [...] Description 12/28/2025 1:20 PM EDT Office Visit [facility] [address] [facility] 3rd Floor, [address] [place] [address] Prince Freitas MD [address] [address] documented as of this encounter Visit Diagnoses Not on filedocumented in this encounter Care Teams Electrician Bus Relationship Specialty Start Date End Date Johana Amador MD [address] [place] [address] PCP - General Gastroenterology 05/05/21 12/21/21 Kym Carranza MD [address] [place] [address] PCP - General Internal Medicine 12/22/21 Evangelist Gabriel MD [address] [place] [address] Historical LMR Provider 07/04/17 09/23/21 Vignesh Farias MD [address] [place] [address] Historical LMR Provider 07/04/17 09/23/21 Dixon Quiñones NP [address] [place] [address] [phone] Historical LMR Provider 07/04/17 2 Hong Maddox MD [address] [address] [email or web address] Historical LMR Provider 07/04/17 Pravin Landis MD [address] [place] [address] [email or web address] Primary Oncologist Medical Oncology 02/08/21 Johana Amador MD [address] [place] [address] Referring Physician Gastroenterology 03/27/21 Carmen Felix MD [address] [place] [phone] Ramos [email or web address] Medical Oncology 03/11/24 documented as of this encounter Additional Source Comments The information contained in this document represents components of the legal health record. It is not the complete legal health record.[facility]
--- OUTSIDE RECORDS SUMMARY | 2025-07-23 15:28 | XMS_ITS ---
Author Organization [facility] Address [address] [place] [address] Phone Care Team Providers Care Medicare Specialist Name Role Phone Jung Carranza MD Primary Care Provider [phone] Active Problems Problem Noted Date Diagnosed Date Drug therapy 07/01/2025 Chemotherapy-induced peripheral neuropathy ([facility]/ [facility] V24) 05/24/2025 Transaminitis 04/26/2025 Anxiety 04/26/2025 Chemotherapy-induced fatigue 04/26/2025 Left upper quadrant abdominal pain 03/08/2025 Family history of pancreatic cancer 02/01/2025 Lung cancer ([facility] V24, [facility] V28) Overview (02/01/2025): s/p L lobectomy in 2004, R wedge resection 2009 TIA (transient ischemic attack) 01/19/2025 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 ([facility] V24, [facility] V28) 12/22/2024 Cancer Staging:Pathologic stage from 01/07/2025:Stage IIA(pT3, pN0, cM0) - Signed by Carmen Felix MD on 02/02/2025 Malignant neoplasm of upper lobe of right lung ([facility] V24, [facility]/HCC V28) 07/01/2024 Malignant neoplasm of ascend ing colon ([facility]/HCC V24, [facility]/HCC V28) 02/21/2021 Asthma-COPD overlap syndrome ([facility] V24, [facility]/ CC V28) 11/06/2017 COPD (chronic obstructive pu lmonary disease) ([facility] V24, [facility] V28) 11/06/2017 Gastroesophageal reflux 11/06/2017 Hiatal hernia 11/06/2017 Hyperlipidemia 11/06/2017 Pulmonary nodules 11/06/2017 Adenocarcinoma of lung ([facility] V24, [facility] V28 ) 06/01/2009 Osteoporosis 02/16/2009 Current Treatment and Therapy Plans FOLFIRINOX ( Fluorouracil Continuous Infusion / Leucovorin / Irinotecan / OXALIplatin )* Plan Start Date:04/04/2025 Plan Provider:Carmen Felix MD Linked Problems 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 ([facility] V24, [facility] V28)Drug therapy Treatment Medications Current Day (Day 1 , Cycle 8 - Planned for 07/27/2025) Next Day (Day 3, Cycle 8 - Planned for 07/29/2025) 5-FU (ADRUCIL) chemo infusio n 100 mL - for home use solutionfluorouracil (ADRUCIL)irinotecan (CAMPTOSAR) chemo IVPBleucovorinleucovorin IVPB in D5W (350 mg vial)OXALIplatin (ELOXATIN)OXALIplatin (ELOXATIN) chemo infusion fluorouracil (ADRUCIL) 2,600 mg in sodium chloride 0.9 % 100 mL chemo infusionfluorouracil (ADRUCIL) chemo injection 450 mgirinotecan (CAMPTOSAR) 190 mg in dextrose 259.5 mL chemo IVPBleucovorin 450 mg in dextrose 272.5 mL IVPBOXALIplatin (ELOXATIN) 90 mg in dextrose 268 mL chemo infusion No medications scheduled. HYDRATION AND ELECTROLYTES* Plan Start Date:04/15/2025 Plan Provider:Carmen Felix MD Linked Problems 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 ([facility] V24, [facility] V28) Treatment Medications No medications scheduled. Past Treatment and Therapy Plans No past plan information found. Lifetime Dose Tracking * Chemical Lifetime Dose Automatic Entry Manual Entr y Fluoro Time 1 minutes 1 minutes 0 minutes Air Kerma 7 mGy 7 mGy 0 mGy
--- OUTSIDE RECORDS SUMMARY | 2025-07-23 15:28 | XMS_ITS | Clinical Summary ---
Author Organization [facility] Address [address] [place] [address] Phone Care Team Providers Care Spotter Name Role Phone Jung Carranza MD Primary Care Provider [phone] Allergies Active Allergy Reactions Criticality Noted Date Comments Aspirin Swelling High 08/12/2017 Latex Itching 08/12/2017 Levofloxacin Itching 08/12/2017 Medications calcium carbonate/vitami n D3 (CALCIUM + D ORAL) Take by mouth. Activ e clopidogreL (PLAVIX) 75 mg tablet Take 1 tablet (75 mg total) by mouth 1 (one) time each day. 4 Active LORazepam (ATIVAN) 0.5 mg tablet - Route: Take 0.5 mg by mouth every 6 hours as needed. - Oral 4 Active multivitamin (MULTIPLE VITAMINS ORAL) Take by mouth. Active albuterol HFA (PROAIR HFA ; PROVENTIL HFA ; VENTOLIN HFA) 90 mcg/actuation inhaler Inhale 2 puffs by mouth every 4 (four) hours if needed. Active ezetimibe (ZETIA) 10 mg tablet Route: Take 10 mg by mouth daily. - Oral 4 Active cetirizine (ZyrTEC) 10 mg capsule 1 (one) time each day. 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 60 tablet 6 5 Active rosuvastatin (CRESTOR) 40 mg tablet 5 Active Trintellix 10 mg tablet 5 Active gabapentin (NEURONTIN) 300 mg capsule Take 1 capsule (300 mg total) by mouth if needed. Active budesonide-glyco pyr-formoterol (Breztri Aerosphere) 160-9-4.8 mcg/actuation HFA aerosol inhaler [...] than 400, administer 6 units 15 mL 5 Active pen needle, diabetic (BD Ultra-Fine Short Pen Needle) 31 gauge x 5/16 needle 1 each 4 (four) times a day (before meals and nightly). 120 each 5 Active nystatin (Nyamyc) 100,000 unit/gram powder APPLY TO THE AFFECTED AREAS IN THE BREAST TWICE DAILY MAINTENANCE. 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 Suggested by gastroenterolo gist-per patient for diarrhea. IBS Active dexAMETHasone (DECADRON) 4 mg tabletIndication s:Malignant neoplasm of tail of pancreas (CMS/HCC V24, CMS/HCC V28) Take 8 mg (2 tablets) once daily, starting the day after treatment, for two days. Take in the morning with food. 30 tablet 1 5 Active prochlorperazine (COMPAZINE) 10 mg tabletIndication s:Malignant neoplasm of tail of pancreas ([facility] V24, CMS/HCC V28) Take 1 tablet (10 mg total) by mouth every 6 (six) hours if needed for nausea or vomiting. 60 tablet 3 5 Active amoxicillin-clav ulanate (AUGMENTIN) 875-125 mg per tablet Take 1 tablet by mouth 2 (two) times a day for 7 days. 14 each 5 5 06/28/20 25 Active Problems Problem Noted Date Diagnosed Date Drug therapy 07/01/2025 Chemotherapy-induced peripheral neuropathy ([facility] V24) 05/24/2025 Transaminitis 04/26/2025 Anxiety 04/26/2025 Chemotherapy-induced fatigue 04/26/2025 Left upper quadrant abdominal pain 03/08/2025 Family history of pancreatic cancer 02/01/2025 Lung cancer ([facility] V24, [facility] V28) Overview (02/01/2025): s/p L lobectomy in 2004, R wedge resection 2009 TIA (transient ischemic attack) 01/19/2025 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 ([facility] V24, CMS/HCC V28) 12/22/2024 Cancer Staging:Pathologic stage from 01/07/2025:Stage IIA(pT3, pN0, cM0) - Signed by Carmen Felix MD on 02/02/2025 Malignant neoplasm of upper lobe of right lung ([facility]/HCC V24, [facility]/HCC V28) 07/01/2024 Malignant neoplasm of ascend ing colon ([facility]/HCC V24, CMS/HCC V28) 02/21/2021 Asthma-COPD overlap syndrome (CMS/HCC V24, [facility]/H CC V28) 11/06/2017 COPD (chronic obstructive pu lmonary disease) ([facility] V24, CMS/HCC V28) 11/06/2017 Gastroesophageal reflux 11/06/2017 Hiatal hernia 11/06/2017 Hyperlipidemia 11/06/2017 Pulmonary nodules 11/06/2017 Adenocarcinoma of lung ([facility] V24, [facility]/HCC V28 ) 06/01/2009 Osteoporosis 02/16/2009 Encounters Date Type Department Care Team Description 07/19/2025 3:15 PM EST Office Visit [facility] H[facility]cology [address] [place] [phone] Elzbietaramonia-Iy Carmen subramanian MD Malignant neoplasm of tail of pancreas (CMS/HCC V24, CMS/HCC V28) (Primary Dx); Chemotherapy-induced peripheral neuropathy (CMS/HCC V24); Anxiety; Chemotherapy-induced fatigue; Family history of pancreatic cancer; Pulmonary nodules; Malignant neoplasm of upper lobe of right lung (CMS/HCC V24, CMS/HCC V28); Overlapping malignant neoplasm of colon (CMS/HCC V24, CMS/HCC V28) 07/19/2025 1:51 PM EST - 07/19/2025 11:59 PM EST Hospital Encounter [facility] [address] [place] [phone] Elzbietaramonia-Iy erCarmen MD Malignant neoplasm of tail of pancreas (CMS/HCC V24, CMS/HCC V28) (Primary Dx); Malignant neoplasm of upper lobe of right lung (CMS/HCC V24, CMS/HCC V28) Discharge Disposition: Home or Self Care 07/15/2025 1:00 PM EDT - 07/15/2025 11:59 PM EDT Hospital Encounter [facility] [address] [place] [phone] Malignant neoplasm of ascending colon (CMS/HCC V24, CMS/HCC V28) (Primary Dx) Discharge Disposition: Home or Self Care 07/13/2025 8:15 AM EDT - 07/13/2025 11:59 PM EDT Hospital Encounter [facility] [address] [place] [phone] Elzbietaramonia-Iy Carmen subramanian MD Drug therapy (Primary Dx); Malignant neoplasm of tail of pancreas (CMS/HCC V24, CMS/HCC V28) Discharge Disposition: Home or Self Care 07/01/2025 11:51 AM EDT - 07/01/2025 11:59 PM EDT Hospital Encounter [facility] [address] [place] [phone] Adenocarcinoma of right lung (CMS/HCC V24, [facility]/HCC V28) (Primary Dx); Malignant neoplasm of ascending colon ([facility] V24, [facility] V28) Discharge Disposition: Home or Self Care 06/29/2025 8:27 AM EDT - 06/29/2025 11:59 PM EDT Hospital Encounter [facility] [address] [place] [phone] Subramonia-Iy erCarmen MD Malignant neoplasm of tail of pancreas ([facility] V24, [facility] V28) (Primary Dx) Discharge Disposition: Home or Self Care 06/21/2025 11:45 AM EDT Office Visit [facility] Hematology Oncology [address] [place] [phone] Subramonia-Iy erCarmen MD Adenocarcinoma of right lung ([facility] V24, [facility] V28) (Primary Dx); Chemotherapy-induced peripheral neuropathy ([facility] V24); Malignant neoplasm of tail of pancreas ([facility] V24, [facility] V28); Age-related osteoporosis without current pathological fracture; Chemotherapy-induced fatigue; Anxiety 06/17/2025 11:54 AM EDT - 06/17/2025 11:59 PM EDT Hospital Encounter [facility] [address] [place] [phone] Elzbietaramonia-Iy erCarmen MD Malignant neoplasm of tail of pancreas ([facility] V24, [facility] V28) (Primary Dx) Discharge Disposition: Home or Self Care 06/15/2025 8:18 AM EDT - 06/15/2025 11:59 PM EDT Hospital Encounter [facility] [address] [place] [phone] Subramonia-Iy Carmen subramanian MD Malignant neoplasm of tail of pancreas ([facility] V24, [facility] V28) (Primary Dx) Discharge Disposition: Home or Self Care 06/15/[address] [facility] [address] [place] [phone] Cy Salguero LMSW 06/07/[address] [facility] [address] [place] [phone] Emelina Glover RN 05/27/2025 12:58 PM EDT - 05/27/2025 11:59 PM EDT Hospital Encounter [facility] [address] [place] [phone] Subramonia-Iy Carmen subramanian MD Malignant neoplasm of tail of pancreas (CMS/HCC V24, CMS/HCC V28) (Primary Dx) Discharge Disposition: Home or Self Care 05/25/2025 8:19 AM EDT - 05/25/2025 11:59 PM EDT Hospital Encounter [facility] [address] [place] [phone] Elzbietaramonia-Iy Carmen subramanian MD Malignant neoplasm of tail of pancreas (CMS/HCC V24, CMS/HCC V28) (Primary Dx); Adenocarcinoma of right lung (CMS/HCC V24, CMS/HCC V28); Malignant neoplasm of ascending colon (CMS/HCC V24, CMS/HCC V28) Discharge Disposition: Home or Self Care 05/24/2025 8:30 AM EDT Office Visit [facility] H[facility]ology [facility]cology [address] [place] [phone] Elzbietaramonia-Iy erCarmen MD Malignant neoplasm of tail of pancreas (CMS/HCC V24, CMS/HCC V28) (Primary Dx); Transaminitis; Anxiety; Chemotherapy-induced fatigue; Adenocarcinoma of right lung (CMS/HCC V24, CMS/HCC V28); Hiatal hernia; Chemotherapy-induced peripheral neuropathy ([facility]/HCC V24) 05/19/2025 9:45 AM EDT Office Visit General Surgery - [place] [address] [phone] Diogenes Medrano MD Malignant neoplasm of body of pancreas (CMS/HCC V24, CMS/HCC V28) (Primary Dx) 05/13/2025 11:48 AM EDT - 05/13/2025 11:59 PM EDT Hospital Encounter [facility] [address] [place] [phone] Elzbietaramonia-Iy erCarmen MD Malignant neoplasm of tail of pancreas ([facility]/HCC V24, CMS/HCC V28) (Primary Dx); Adenocarcinoma of right lung ([facility]/HCC V24, CMS/HCC V28) Discharge Disposition: Home or Self Care 05/11/2025 8:30 AM EDT - 05/11/2025 11:59 PM EDT Hospital Encounter [facility] [address] [place] [phone] Subramonia-Iy erCarmen MD Malignant neoplasm of tail of pancreas ([facility]/HCC V24, [facility]/HCC V28) (Primary Dx) Discharge Disposition: Home or Self Care 05/10/2025 3:15 PM EDT Office Visit [facility] [address] [place] [phone] Elzbietaramonia-Iy erCarmen MD Malignant neoplasm of tail of pancreas ([facility]/HCC V24, [facility]/HCC V28) (Primary Dx) 05/10/[address] [facility] [address] [phone] Arminda Glover RN 04/29/2025 12:02 PM EDT - 04/29/2025 11:59 PM EDT Hospital Encounter [facility] [address] [place] [phone] Subramonia-Iy erCarmen MD Malignant neoplasm of tail of pancreas ([facility]/HCC V24, CMS/HCC V28) (Primary Dx) Discharge Disposition: Home or Self Care 04/27/2025 8:20 AM EDT - 04/27/2025 11:59 PM EDT Hospital Encounter [facility] [address] [place] [phone] Elzbietaramonia-Iy erCarmen MD Malignant neoplasm of tail of pancreas ([facility]/HCC V24, CMS/HCC V28) (Primary Dx) Discharge Disposition: Home or Self Care 04/26/2025 3:15 PM EDT Office Visit [facility]cology [address] [place] [phone] Carmen Cuellar MD Malignant neoplasm of tail of pancreas ([facility] V24, [facility] V28) (Primary Dx); Transaminitis; Anxiety; Chemotherapy-induced fatigue from Last 3 Months Immunizations Immunization Administration Dates Next Due HiB PRP-T conjugate (Acthib, Hiberix) 6wks and older 01/08/2025(Deferred: Patient Refused) Meningococcal B, Recombinant (Bexsero) 16yo to less than 24yo 01/08/2025 [employer] (ages 12 & older) MENG S-CoV-2 COVID-19, [...] Comments Asthma 11/06/2017 DX:Asthma Asthma-COPD overlap syndrome ([facility] V24, [facility] V28) 11/06/2017 DX:Asthma-COPD overlap syndr ome ([facility]) COPD (chronic obstructive pu lmonary disease) ([facility] V24, [facility] V28) 11/06/2017 DX:COPD (chronic o bstructive pulmonary disease) ([facility]) Gastroesophageal reflux 11/06/2017 DX:Gastr oesophageal reflux Hiatal hernia 11/06/2017 DX:Hiatal hernia History of lung cancer 11/06/2017 DX:Histor y of lung cancer; COMMENT: X2, s/p resection Hyperlipidemia 11/06/2017 DX:Hyperlipidemi a Pulmonary nodules 11/06/2017 DX:Pulmonary n odules Lung cancer ([facility] V24, [facility] V28) DX:Lung cancer (HCC) COPD (chronic obstructive pu lmonary disease) ([facility] V24, [facility] V28) DX:COPD (chronic o bstructive pulmonary disease) (HCC) GERD (gastroesophageal reflux disease) DX:GERD (gastroesophageal reflux disease) Colon cancer ([facility] V24, [facility] V28) DX:Colon cancer (HCC) Diabetes mellitus ([facility] V 24, [facility] V28) DX:Diabetes mellitus (HCC) [place], old Heart disease Shortness of breath Liver [...] F) 07/19/2025 2:00 PM EST Respiratory Rate 18 07/13/2025 8:51 AM EDT Oxygen Saturation 98% 07/19/2025 2:00 PM EST Inhaled Oxygen Concentration - - Weight 73.8 kg (162 lb 9.6 oz) 07/13/2025 8:51 A M EDT Height 162.6 cm (5' 4.02 ) 05/19/2025 9:44 AM ED T Body Mass Index 27.89 05/19/2025 9:44 AM EDT Plan of Treatment Upcoming Encounters Date Type Department Care Team (Late st Contact Info) Description 07/26/2025 10:00 AM EST Appointment [facility] [address] [place] [phone] 07/27/2025 8:[address] [facility] [address] [phone] 08/16/2025 10:45 AM EST Office Visit [facility] [address] [place] [phone] Carmen Felix MD [address] [place] [phone] Health Maintenance Due Date Last [...] 01/19/2025 Diabetes: Annual GFR (Glomerular Filtration Rate) 07/19/2026 07/19/2025, 07/12/2025, 06/28/2025, Additional history exists Falls Risk Assessment 07/19/2026 07/19/2025 Hypertension/CHF/CAD Annual BMP Blood Test 07/19/2026 07/19/2025, 07/12/2025, 06/28/2025, Additional history exists Cholesterol Screening (Lipid Panel) [...] this topic Medical Devices Implanted Type Area Senior Product Engineer Device Identifier Shelf Expiration Date Model / Serial / Lot Port Pwr Slim Poly 6f Sandra Inte Attach - [id number] Implanted:Qty: 1 on 03/23/2025 by Blake Beaulieu MD at [facility] Central/Yaneth pheral Catheters and Ports Right: Chest Wall CR [employer] [id number] 11/13/2025 [id number] / / [id number] Procedures Procedure Name Priority Date/Time Associated Diagnosis [...] right lung (CMS/HCC V24, CMS/HCC V28) CBC WITH AUTO DIFFERENTIAL Routine 07/12/2025 10:14 AM EDT Malignant neoplasm of tail of pancreas (CMS/HCC V24, CMS/HCC V28) Drug therapy COMPREHENSIVE METABOLIC PANEL Routine 07/12/2025 10:14 AM EDT Malignant neoplasm of tail of pancreas (CMS/HCC V24, CMS/HCC V28) Drug therapy CBC AND DIFFERENTIAL Routine 07/12/2025 10:14 AM EDT Malignant neoplasm of tail of pancreas (CMS/HCC V24, CMS/HCC V28) Drug therapy MANUAL DIFFERENTIAL - SYSMEX WAM Routine 06/28/2025 [...] V24, CMS/HCC V28) CARCINOEMBRYONIC ANTIGEN Routine 025 3:07 PM EDT Colon cancer (CMS/HCC V24, CMS/HCC V28) CBC AND DIFFERENTIAL Routine 04/26/2025 3:07 PM EDT Colon cancer (CMS/HCC V24, CMS/HCC V28) COMPREHENSIVE METABOLIC PANEL Routine 04/26/2025 3:07 PM EDT Colon cancer (CMS/HCC V24, CMS/HCC V28) HEMOGLOBIN A1C Add-On 01/19/2025 3:51 AM EDT LIPID PANEL WITH REFLEX TO DIRECT LDL Add-On 01/19/2025 3:51 AM EDT COLONOSCOPY Routine 12/17/2024 10:44 AM EDT Personal history of colon cancer from Last 3 Months or Most Recently Relevant to Health Maintenance Results * (ABNORMAL) CBC auto differential (07/19/2025 2:23 PM EST) Only the most recent of9 resultswithin the time period is included. [facility] WBC 4.0(L) 4.8 - 10.8 K/mcL LAB HEMETOLOGY METHOD 07/19/2025 2:56 PM [facility] RBC 3.80 3.80 - 4.80 M/mcL LAB HEMETOLOGY METHOD 07/19/2025 2:56 PM [facility] Hemoglobin 11.9 11.5 - 16.0 g/dL LAB HEMETOLOGY METHOD 07/19/2025 2:56 PM [facility] Hematocrit 35.6 35.0 - 47.0 % LAB HEMETOLOGY METHOD 07/19/2025 2:56 PM [facility] MCV 94.9 79.0 - 98.0 FL LAB HEMETOLOGY METHOD 07/19/2025 2:56 PM [facility] MCH 31.7 27.0 - 32.0 pcg LAB HEMETOLOGY METHOD 07/19/2025 2:56 PM [facility] MCHC 33.4 32.0 - 37.0 g/dL LAB HEMETOLOGY METHOD 07/19/2025 2:56 PM [facility] RDW 15.2(H) 11.0 - 15.0 % LAB HEMETOLOGY METHOD 07/19/2025 2:56 PM [facility] Platelets 338 130 - 400 K/mcL LAB HEMETOLOGY METHOD 07/19/2025 2:56 PM [facility] MPV 10.2 7.0 - 11.0 FL LAB HEMETOLOGY METHOD 07/19/2025 2:56 PM [facility] NRBC 0.0 <1.0 % LAB HEMETOLOGY METHOD 07/19/2025 2:56 PM [facility] NRBC Absolute 0.00 <0.10 K/mcL LAB HEMETOLOGY METHOD 07/19/2025 2:56 PM [facility] Neutrophils Relative 48.8 % LAB HEMETOLOGY METHOD 07/19/2025 2:56 PM [facility] Lymphocytes Relative 42.1 % LAB HEMETOLOGY METHOD 07/19/2025 2:56 PM [facility] Monocytes Relative 5.7 % LAB HEMETOLOGY METHOD 07/19/2025 2:56 PM [facility] Eosinophils Relative 2.2 % LAB HEMETOLOGY METHOD 07/19/2025 2:56 PM [facility] Basophils Relative 0.7 % LAB HEMETOLOGY METHOD 07/19/2025 2:56 PM [facility] Immature Granulocytes Relative 0.5 % LAB HEMETOLOGY METHOD 07/19/2025 2:56 PM [facility] Neutrophils Absolute 1.97 1.50 - 7.00 K/mcL LAB HEMETOLOGY METHOD 07/19/2025 2:56 PM [facility] Lymphocytes Absolute 1.70 1.00 - 5.00 K/mcL LAB HEMETOLOGY METHOD 07/19/2025 2:56 PM [facility] Monocytes Absolute 0.23 0.20 - 1.00 K/mcL LAB HEMETOLOGY METHOD 07/19/2025 2:56 PM [facility] Eosinophils Absolute 0.09 0.00 - 0.50 K/mcL LAB HEMETOLOGY METHOD 07/19/2025 2:56 PM [facility] Basophils Absolute 0.03 0.00 - 0.20 K/mcL LAB HEMETOLOGY METHOD 07/19/2025 2:56 PM [facility] Immature Granulocytes Absolute 0.02 0.00 - 0.03 K/mcL LAB HEMETOLOGY METHOD 07/19/2025 2:56 PM [facility] Blood Blood sample taken from central line / Unknown Existing Catheter / Unknown 07/19/2025 2:23 PM EST 07/19/2025 2:35 PM EST Carmen Felix MD LAB BLOOD ORDERABLE S Final Result [facility] [address] [place] [address], [place] [phone] * (ABNORMAL) Comprehensive metabolic panel (07/19/2025 2:23 PM EST) Only the most recent of9 resultswithin the time period is included. Sodium 137 133 - 145 mmol/L LAB CHEMISTRY METHOD 07/19/2025 3:44 PM [facility] Potassium 4.2 3.5 - 5.5 mmol/L LAB CHEMISTRY METHOD 07/19/2025 3:44 PM [facility] Chloride 108 96 - 110 mmol/L LAB CHEMISTRY METHOD 07/19/2025 3:44 PM [facility] CO2 24 21 - 32 mmol/L LAB CHEMISTRY METHOD 07/19/2025 3:44 PM [facility] Anion Gap 5 3 - 11 LAB CHEMISTRY METHOD 07/19/2025 3:44 PM [facility] Glucose 264(H) 70 - 100 mg/dL LAB CHEMISTRY METHOD 07/19/2025 3:44 PM [facility] BUN 29(H) 5 - 25 mg/dL LAB CHEMISTRY METHOD 07/19/2025 3:44 PM [facility] Creatinine 1.04 0.50 - 1.10 mg/dL LAB CHEMISTRY METHOD 07/19/2025 3:44 PM [facility] eGFR 56(L) >=60 mL/min/1. 73m2 LAB CHEMISTRY METHOD 07/19/2025 3:44 PM [facility] Comment:Calculation based on the Chronic Kidney Disease Epidemiology Collaboration (CKD-EPI) equation refit without adjustment for race. BUN/Creatinine Ratio 27.9 LAB CHEMISTRY METHOD 07/19/2025 3:44 PM [facility] Calcium 8.2(L) 8.5 - 10.5 mg/dL LAB CHEMISTRY METHOD 07/19/2025 3:44 PM [facility] AST (SGOT) 85(H) 10 - 42 unit/L LAB CHEMISTRY METHOD 07/19/2025 3:44 PM [facility] ALT (SGPT) 126(H) 10 - 60 unit/L LAB CHEMISTRY METHOD 07/19/2025 3:44 PM [facility] Alkaline Phosphatase 73 42 - 121 unit/L LAB CHEMISTRY METHOD 07/19/2025 3:44 PM [facility] Total Protein 5.1(L) 6.0 - 8.0 g/dL LAB CHEMISTRY METHOD 07/19/2025 3:44 PM [facility] Albumin 2.7(L) 3.2 - 5.0 g/dL LAB CHEMISTRY METHOD 07/19/2025 3:44 PM [facility] Total Bilirubin 1.0 0.0 - 1.4 mg/dL LAB CHEMISTRY METHOD 07/19/2025 3:44 PM [facility] Blood Blood sample taken from central line / Unknown Existing Catheter / Unknown 07/19/2025 2:23 PM EST 07/19/2025 2:35 PM EST us Subramsarah Felix MD LAB BLOOD ORDERABLE S Final Result [facility] [address] [place] [address], * (ABNORMAL) Manual differential (06/28/2025 10:22 AM EDT) Only the most recent of2 resultswithin the time period is included. Neutrophils % 80.0 % LAB HEMETOLOGY METHOD 06/28/2025 1:05 PM [facility] Lymphocytes % 9.0 % LAB HEMETOLOGY METHOD 06/28/2025 1:05 PM [facility] Monocytes % 9.0 % LAB HEMETOLOGY METHOD 06/28/2025 1:05 PM [facility] Eosinophils % 2.0 % LAB HEMETOLOGY METHOD 06/28/2025 1:05 PM [facility] Basophils % 1.0 % LAB HEMETOLOGY METHOD 06/28/2025 1:05 PM [facility] Neutrophils Absolute Manual 12.72(H) 1.50 - 7.00 K/mcL LAB HEMETOLOGY METHOD 06/28/2025 1:05 PM [facility] Lymphocytes Absolute 1.43 1.00 - 5.00 K/mcL LAB HEMETOLOGY METHOD 06/28/2025 1:05 PM [facility] Monocytes Absolute Manual 1.43(H) 0.20 - 1.00 K/mcL LAB HEMETOLOGY METHOD 06/28/2025 1:05 PM [facility] Eosinophils Absolute Manual 0.32 0.00 - 0.50 K/mcL LAB HEMETOLOGY METHOD 06/28/2025 1:05 PM [facility] Basophils Absolute Manual 0.16 0.00 - 0.20 K/mcL LAB HEMETOLOGY METHOD 06/28/2025 1:05 PM [facility] Rbc Morphology Present( A) Consistent with indices, Normal for [place] Line LAB HEMETOLOGY METHOD 06/28/2025 1:05 PM [facility] Platelet Morphology - WAM See Note(A) Normal LAB HEMETOLOGY METHOD 06/28/2025 1:05 PM [facility] Comment:PLT: Normal Ovalocytes Present 5 - 10%(A) (none) LAB HEMETOLOGY METHOD 06/28/2025 1:05 PM EDT [facility] Schistocytes Present < 5%(A) (none) LAB HEMETOLOGY METHOD 06/28/2025 1:05 PM EDT [facility] Toxic Granules Present Present( A) (none) LAB HEMETOLOGY METHOD 06/28/2025 1:05 PM EDT [facility] Blood Venous blood specimen / Unknown Venipuncture / Unknown 06/28/2025 10:22 AM EDT 06/28/2025 11:36 AM EDT us Carmen Felix MD LAB BLOOD ORDERABLE S Final Result [facility] [address] [place] [address], [place] [phone] * (ABNORMAL) Cancer antigen 19-9 (06/21/2025 11:03 AM EDT) Only the most recent of2 resultswithin the time period is included. CA 19-9 80.2(H) <=35 U/mL 06/23/2025 2:12 PM EDT [facility] Comment: The Siemens Advia Centaur CA199 Chemiluminescent Immunoassay is used. Results obtained with different assay methods or kits cannot be used interchangeably. Results cannot be interpreted as absolute evidence of the presence or absence of malignant disease. Test performed at [facility], [address], [place] [address] Sangita Sharma MD, PhD - Line Installer Blood Venous blood specimen / Unknown Venipuncture / Unknown 06/21/2025 11:03 AM EDT 06/21/2025 11:40 AM EDT us Carmen Felix MD LAB BLOOD ORDERABLE S Final Result [facility] [address] [place] [address] * CEA (04/26/2025 3:07 PM EDT) [facility] CEA 2.8 0.0 - 5.0 ng/mL LAB CHEMISTRY METHOD 04/26/2025 6:16 PM EDT [facility] Blood Venous blood specimen / Unknown Venipuncture / Unknown 04/26/2025 3:07 PM EDT 04/26/2025 4:34 PM EDT Narrative [facility] - 04/26/2025 6:16 PM EDT The Siemens Advia Centaur Chemiluminescent Immunoassay is used. Results obtained with different assay methods or kits cannot be used interchangeably. Results cannot be interpreted as absolute evidence of the presence or absence of malignant disease. Carmen Felix MD LAB BLOOD ORDERABLE S Final Result [facility] [address] [place] [address], * (ABNORMAL) Lipid panel with reflex to direct LDL (01/19/2025 3:51 AM EDT) [facility] Cholesterol 126 0 - 200 mg/dL LAB CHEMISTRY METHOD 01/19/2025 3:36 PM EDT [facility] Triglycerides 153(H) 0 - 150 mg/dL LAB CHEMISTRY METHOD 01/19/2025 3:36 PM EDT [facility] HDL 50 >=40 mg/dL LAB CHEMISTRY METHOD 01/19/2025 3:36 PM EDT [facility] LDL Calculated 45 0 - 100 mg/dL LAB CHEMISTRY METHOD 01/19/2025 3:36 PM EDT [facility] VLDL Cholesterol Russell 30.6 mg/dL LAB CHEMISTRY METHOD 01/19/2025 3:36 PM EDT [facility] Non HDL Chol. (LDL+VLDL) 76 <145 mg/dL LAB CHEMISTRY METHOD 01/19/2025 3:36 PM EDT [facility] Chol/HDL Ratio 2.5 0.0 - 4.4 LAB CHEMISTRY METHOD 01/19/2025 3:36 PM EDT [facility] Blood Venous blood specimen / Unknown Venipuncture / Unknown 01/19/2025 3:51 AM EDT 01/19/2025 4:08 AM EDT Annabelle ROSAS LAB BLOOD ORDERABLES Final Resul t Performing Organization Address [facility] de Phone Number [facility] [address] [place] [address], [place] [phone] * (ABNORMAL) Hemoglobin A1c (01/19/2025 3:51 AM EDT) Hemoglobin A1C 8.9(H) <6.5 % LAB CHEMISTRY METHOD 01/19/2025 1:38 PM EDT [facility] Mean Bld Glu Estim. 209 mg/dL LAB CHEMISTRY METHOD 01/19/2025 1:38 PM EDT [facility] Blood Venous blood specimen / Unknown Venipuncture / Unknown 01/19/2025 3:51 AM EDT 01/19/2025 4:08 AM EDT us Annabelle ROSAS LAB BLOOD ORDERABLES Final Resul t Performing Organization Address [facility] de Phone Number [facility] [address] [place] [address], [place] [phone] * COLONOSCOPY Anesthesia - MAC; [facility] ENDOSCOPY (12/17/2024 10:44 AM EDT) Anatomical Region Laterality Modality Endoscopy 12/17/2024 10:2 8 AM EDT Impressions 12/17/2024 10:46 AM EDT - Patent stgg-nv-jwtm ileo-colonic anastomosis, characterized by healthy appearing mucosa. - Diverticulosis in the sigmoid colon. - Internal hemorrhoids. - The examination was otherwise normal. - No specimens collected. Recommendation: - Discharge patient to home. - Repeat colonoscopy in 5 years for surveillance. Narrative 12/17/2024 10:[address] [facility] Patient Name: Corin Shaw Procedure Date: 12/17/2024 10:28 AM Date of [...] verified by the physician, the nurse, the operations planner and the diet technician registered in the pre-procedure area in the endoscopy [...] normal. There was evidence of a prior gcnm-jy-rfkh ileo-colonic anastomosis in the ascending colon. This [...] neoplasm of large intestine CPT copyright 2020 [employer]. All rights reserved. The codes documented in this report are preliminary and upon aircraft engine specialist review may be revised to meet current compliance requirements. Valente Camarena MD 12/17/2024 10:46:21 AM This report has been signed electronically.Valente Camarena MD Number of Addenda: 0 Note Initiated On: 12/17/2024 10:28 AM Scope Withdrawal Time: 0 hours 6 minutes 55 seconds Scope In: 10:35:31 AM Scope Out: 10:45:39 AM Endoscopy Department at [facility] - [address] [place] [phone] Procedure Note Valente Camarena MD - 12/17/2024 [facility] Patient Name: Corin Shaw Procedure Date: 12/17/2024 10:28 AM Date of [...] the physician, the nurse, theanesthetist and the diet technician registered in the pre-procedure area in the endoscopy [...] normal. There was evidence of a prior jvll-fj-csmm ileo-colonic anastomosis in the ascending colon.This was [...] malignantneoplasm of large intestine CPT copyright 2020 [employer]. All rights reserved. The codes documented in this report are preliminary and upon aircraft engine specialist reviewmay be revised to meet current compliance requirements. Valente Camarena MD 12/17/2024 10:46:21 AM This report has been signed electronically.Valente Camarena MD Number of Addenda: 0 Note Initiated On: 12/17/2024 10:28 AM Scope Withdrawal Time: 0 hours 6 minutes 55 seconds Scope In: 10:35:31 AM Scope Out: 10:45:39 AM Endoscopy Department at [facility] - [address] [place] [phone] IMPRESSION: - Patent mnbo-ym-zpej ileo-colonic anastomosis, characterized by healthy appearing mucosa. [...] currently active code status orders. Care Teams Spotter Relationship Specialty Start Date End Date Jung Craranza MD [address] [facility] [address] [place], [place] PCP - General Internal Medicine 12/08/18
--- OUTSIDE RECORDS SUMMARY | 2025-07-23 15:28 | XMS_ITS | Encounter Summary ---
Author Organization [facility] Address [address] [facility] [address] [place] [address] Phone Care Team Providers Care Postal Clerk Name Role Phone Hong Maddox MD Unavailable [phone] Pravin Landis MD Unavailable Johana Amador MD Unavailable [phone] Kym Carranza MD Primary Care Provide r Carmen Felix MD Unavailable [phone] Encounter Details Date Type Department Care Team (Late st Contact Info) Description 03/13/2022 Procedure Pass [facility] [place], [place] [address] [place] [address] Social History Tobacco Use Types [...] Description 12/28/2025 1:20 PM EDT Office Visit [facility] [address] [place] [address] 3rd Floor, [address] [place] [address] Prince Freitas MD [address] [facility], [address] [place] [address] [email or web address] documented as of this encounter Visit Diagnoses Not on filedocumented in this encounter Care Teams Postal Clerk Relationship Specialty Start Date End Date Kym Carranza MD [address] [place] [address] 1 [place] [address] PCP - General Internal Medicine 12/22/21 Hong Maddox MD [address] [place] [address] [email or web address] Historical LMR Provider 07/04/17 Pravin Landis MD [address] [place] [address] [email or web address] Primary Oncologist Medical Oncology 02/08/21 Johana Amador MD [address] [place] [address] Referring Physician Gastroenterology 03/27/21 Carmen Felix MD [address] [place] [phone] Ramos [email or web address] Medical Oncology 03/11/24 documented as of this encounter Additional Source Comments The information contained in this document represents components of the legal health record. It is not the complete legal health record.[facility]
--- OUTSIDE RECORDS SUMMARY | 2025-07-23 15:29 | XMS_ITS | Encounter Summary ---
Author Organization [facility] Address [address] [place] [address] Phone Care Team Providers Care Retort Furnace Helper Name Role Phone Evangelist Gabriel MD Unavailable [phone] Vignesh Farias MD Unavailable Dixon Quiñones NP Unavailable [phone] Hong Maddox MD Unavailable [phone] Kym Carranza MD Primary Care Provide r Self-Referred, Patient Unavailable Unavailab Pravin Leung MD Unavailable [phone] Johana Amador MD Unavailable [phone] Johana Amador MD Primary Care Provid er Kym Carranza MD Primary Care Provide r Carmen Felix MD Unavailable [phone] Encounter Details Date Type Department Care Team (Late st Contact Info) Description 02/21/2021 Procedure Pass [facility], Ct Scan - [address] [id number] Social History Tobacco Use Types Packs/Day Years [...] Description 12/28/2025 1:20 PM EDT Office Visit [facility] [address] [place] [address] 3rd Floor, [address] [place] [address] Prince Freitas MD [address] [place] [address] [email or web address] documented as of this encounter Visit Diagnoses Not on filedocumented in this encounter Care Teams Retort Furnace Helper Relationship Specialty Start Date End Date Kym Carranza MD [address] [place] [address] PCP - General Internal Medicine 11/28/20 05/04/21 Johana Amador MD [address] [place] [address] PCP - General Gastroenterology 05/05/21 12/21/21 Kym Carranza MD [address] [place] [address] PCP - General Internal Medicine 12/22/21 Evangelist Gabriel MD [address] [place] [address] Historical LMR Provider 07/04/17 09/23/21 Vignesh Farias MD [address] [place] [address] [email or web address] Historical LMR Provider 07/04/17 09/23/21 Dixon Quiñones NP [address] [place] [address] [phone] Historical LMR Provider 07/04/17 2 Hong Maddox MD [address] [address] [email or web address] Historical LMR Provider 07/04/17 Self-Referred, Patient Referring Physician 11/28/20 Pravin Landis MD [address] [place] [address] [email or web address] Primary Oncologist Medical Oncology 02/08/21 Johana Amador MD [address] [address] Referring Physician Gastroenterology 03/27/21 Carmen Felix MD [address] [place] [phone] Ramos [email or web address] Medical Oncology 03/11/24 documented as of this encounter Additional Source Comments The information contained in this document represents components of the legal health record. It is not the complete legal health record.[facility]
--- OUTSIDE RECORDS SUMMARY | 2025-07-23 15:29 | XMS_ITS | Encounter Summary ---
Author Organization [facility] Address [address] [facility] [address] [place] [address] Phone Care Team Providers Care Senior Research Project Manager Name Role Phone Hong Maddox MD Unavailable [phone] Pravin Landis MD Unavailable [phone] Johana Amador MD Unavailable [phone] Kym Carranza MD Primary Care Provide r Carmen Felix MD Unavailable [phone] Encounter Details Date Type Department Care Team (Late st Contact Info) Description 05/28/2023 Procedure Pass [facility] [place] [facility] [place], [place] [address] [address] Social History Tobacco Use Types [...] Description 12/28/2025 1:20 PM EDT Office Visit [facility] [address] [place] [address] 3rd Floor, [address] [place] [address] Prince Freitas MD [address] [place] [address] [email or web address] documented as of this encounter Visit Diagnoses Not on filedocumented in this encounter Care Teams Senior Research Project Manager Relationship Specialty Start Date End Date Kym Carranza MD [address] [place] [address] PCP - General Internal Medicine 12/22/21 Hong Maddox MD [address] [address] [email or web address] Historical LMR Provider 07/04/17 Pravin Landis MD [address] [place] [address] [email or web address] Primary Oncologist Medical Oncology 02/08/21 Johana Amador MD [address] [address] Referring Physician Gastroenterology 03/27/21 Carmen Felix MD [address] [place] [phone] Ramos [email or web address] Medical Oncology 03/11/24 documented as of this encounter Additional Source Comments The information contained in this document represents components of the legal health record. It is not the complete legal health record.[facility]
--- OUTSIDE RECORDS SUMMARY | 2025-07-23 15:29 | XMS_ITS | Clinical Summary ---
Author Organization [facility] Address [address] [address] Phone Care Team Providers Care Trimming Inspector Name Role Phone Hong Maddox MD Unavailable [phone] Prvain Landis MD Unavailable [phone] Johana Amador MD Unavailable [phone] Kym Carranza MD Primary Care Provide r Carmen Felix MD Unavailable [phone] Allergies Active Allergy Reactions Criticality Noted Date Comments Aspirin Swelling,Angioedema High 12/06/2017 Mouth swelling Latex, Natural Rubber Itching Low 12/06/2017 Levofloxacin Diarrhea Low 12/06/2017 Gabapentin Hives Low 05/21/2018 Medications LORazepam (ATIVAN) 0.5 MG tablet Take 1 tablet by mouth nightly as needed. Active CETIRIZINE HCL (ZYRTEC ORAL) Active SPIRIVA RESPIMAT 2.5 mcg/actuation mist for inhalation Inhale 2 puffs into the lungs daily. 06/06/20 21 Active TRINTELLIX 10 mg Tab Take 10 mg by mouth nightly at bedtime. 07/08/20 21 Active loperamide (IMODIUM) 2 mg capsule Take 2 mg by mouth 4 (four) times a day as needed for diarrhea. Active multivitamin-mine rals-lutein (MULTIVITAMIN 50 PLUS) Tab Take 1 tablet by mouth daily. Active b complex vitamins capsule Take 1 capsule by mouth daily. Vitamin B3 Active calcium carbonate/vitamin D3 (CALCIUM WITH VITAMIN D3 ORAL) Take 1 tablet by mouth daily. Active NYAMYC powder APPLY TO THE AFFECTED AREAS IN THE BREAST TWICE DAILY MAINTENANCE . 11/15/19 23 Active ezetimibe (ZETIA) 10 mg tabletIndications :Hyperlipidemia, unspecified hyperlipidemia type Take 1 tablet (10 mg total) by mouth daily. 90 tablet 3 03/10/20 25 Active rosuvastatin (CRESTOR) 40 MG tabletIndications :Medication refill TAKE 1 TABLET BY MOUTH EVERY NIGHT AT BEDTIME 100 tablet 2 04/29/20 25 Active clopidogrel (PLAVIX) 75 mg tabletIndications :Medication refill TAKE 1 TABLET BY MOUTH DAILY 100 tablet 2 07/07/20 25 Active budesonide-formot gurpreet (SYMBICORT) 160-4.5 mcg/actuation inhaler Inhale 2 puffs into the lungs 2 (two) times a day. 025 Discontinued(N o longer taking) empagliflozin (JARDIANCE) 25 mg tablet Take 25 mg by mouth daily. 025 Discontinued(N o longer taking) clopidogrel (PLAVIX) 75 mg tabletIndications :Medication refill Take 1 tablet (75 mg total) by mouth daily. 90 tablet 3 10/15/19 25 025 Discontinued Active Problems Problem Noted Date Diagnosed Date Malignant neoplasm of colon 02/21/2021 Cancer Staging:Pathologic stage from 12/20/2020:Stage IIA(pT3, pN0, cM0) - Signed by Jeannie Man MD, PhD on 02/21/2021 S/P colon resection 12/20/2020 Chronic obstructive pulmonary disease (COPD) 09/2020 Coronary artery disease invo lving [place] coronary artery of [place] heart without angina pectoris 11/11/2017 Overview (04/12/2020): 2000 PCI BMS LAD 2002 CATH EF 40 NONOBST 2017 NUKE ANT UT; EF 40-45 07/2019 ECHO EF 50-55%; DD1; 11/2019 NUKE ANT UT EF 41% Assessment & Plan (09/13/2020 2:48 [...] EST): As of the echocardiogram done at [facility] this is unchanged. Ejection fraction remains in [...] Encounters Date Type Department Care Team Description 07/06/2025 Refill [facility] [address] 3[address] Floor, [address] [place] [address] Mary Anne Nixon CNP Medication Refill 06/28/2025 1:40 PM EDT Office Visit [facility] [address] 3rd Floor, [address] [place] [address] Prince Freitas MD Coronary artery disease of [place] artery of [place] heart with stable angina pectoris (Primary Dx); Essential hypertension; Hyperlipidemia, unspecified hyperlipidemia type 06/14/2025 12:26 PM EDT - 06/14/2025 11:59 PM EDT Hospital Encounter [facility] [place] [address] Prince Freitas MD Discharge Disposition: Home or Self Care 04/27/2025 Refill [facility] [address] [place] [address]rd Floor, [address] [place] [address] Prince Freitas MD Medication Refill 12/29/2024 Procedure Pass [facility] [place] [address] [place] [address] from Last 3 Months Family History Medical [...] Description 12/28/2025 1:20 PM EDT Office Visit [facility] [address] [place] [address] 3rd Floor, [address] [place] [address] Prince Freitas MD [address] [facility], [address] [place] [address] [email or web address] Due Date Last Done Comments [...] this topic Medical Devices Implanted Type Area Measurer Machine Device Identifier Shelf Expiration Date Model / [...] MD, MPH - 01/04/2022 2:42 PM EDT [facility] Gastroenterology Patient Name: Corin Alvarenga Procedure [...] HEMOGLOBIN A1C 7.7(H) 4.2 - 5.6 % [facility] Comment: HbA1c levels 5.7-6.4% [...] AM EDT Jose Navarro PA-C LAB BLOOD BKR ORDERABLES Final Result Performing Organization Address City/State/[facility] Co de Phone Number [facility] [address] [place] [phone] from Last 3 Months or Most Recently Relevant to Health Maintenance Insurance [facility] MEDICARE REPLACEMENT [facility] MEDICARE REPLACEMENT [facility] MEDICARE REPLACEMENT [facility] MEDICARE REPLACEMENT [facility] MEDICARE REPLACEMENT [facility] MEDICARE REPLACEMENT Advance Directives For more information, please contact: [phone] (9AM - 5PM [place], Saturday-Saturday) * Full Code (Latest Code Status on File) Date Activated Date Inactivated Comments 12/20/2020 6:12 PM Question Answer Comments Code Status Confirmed With: Patient * Full Code Date Activated Date Inactivated Comments 12/20/2020 10:44 AM 12/20/2020 6:12 PM Question Answer Comments Code Status Confirmed With: Patient Care Teams Trimming Inspector Relationship Specialty Start Date End Date Kym Carranza MD [address] [place] [address] PCP - General Internal Medicine 12/22/21 Hong Maddox MD [address] [address] [email or web address] Historical LMR Provider 07/04/17 Pravin Landis MD [address] [place] [address] [email or web address] Primary Oncologist Medical Oncology 02/08/21 Johana Amador MD [address] [address] Referring Physician Gastroenterology 03/27/21 Carmen Felix MD [address] [place] [phone] Ramos Medical Oncology 03/11/24 Additional Source Comments The information contained in this document represents components of the legal health record. It is not the complete legal health record.[facility]
--- OUTSIDE RECORDS SUMMARY | 2025-07-23 15:29 | XMS_ITS | Encounter Summary ---
Author Organization [facility] Address [address] [place] [address] [place] [address] Phone Care Team Providers Care Kaiawhina Name Role Phone Hong Maddox MD Unavailable Pravin Landis MD Unavailable [phone] Johana Amador MD Unavailable [phone] Kym Carranza MD Primary Care Provide r Carmen Felix MD Unavailable [phone] Encounter Details Date Type Department Care Team (Late st Contact Info) Description 12/29/2024 Procedure Pass [facility] [place] [place] [id number] Social History Tobacco Use Types Packs/Day Years [...] Description 12/28/2025 1:20 PM EDT Office Visit [facility] [address] [place] [address] 3rd Floor, [address] [place] [address] Prince Freitas MD [address] [place] [address] [email or web address] documented as of this encounter Visit Diagnoses Not on filedocumented in this encounter Care Teams Kaiawhina Relationship Specialty Start Date End Date Kym Carranza MD [address] [place] [address] PCP - General Internal Medicine 12/22/21 Hong Maddox MD [address] [place] [address] [email or web address] Historical LMR Provider 07/04/17 Pravin Landis MD [address] [place] [address] [email or web address] Primary Oncologist Medical Oncology 02/08/21 Johana Amador MD [address] [address] Referring Physician Gastroenterology 03/27/21 Carmen Felix MD [address] [place] [phone] Ramos [email or web address] Medical Oncology 03/11/24 documented as of this encounter Additional Source Comments The information contained in this document represents components of the legal health record. It is not the complete legal health record.[facility]
--- OUTSIDE RECORDS SUMMARY | 2025-07-23 15:29 | XMS_ITS | Encounter Summary ---
Author Organization [facility] Address [address] [facility] [address] [place] [address] Phone Care Team Providers Care Delivery Representative Name Role Phone Hong Maddox MD Unavailable [phone] Pravin Landis MD Unavailable [phone] Johana Amador MD Unavailable [phone] Kym Carranza MD Primary Care Provide r Carmen Felix MD Unavailable [phone] Encounter Details Date Type Department Care Team (Late st Contact Info) Description 05/28/2023 Procedure Pass [facility] [place] [facility] [place], [place] [address] [address] Social History Tobacco Use Types [...] Description 12/28/2025 1:20 PM EDT Office Visit [facility] [address] [place] [address] 3rd Floor, [address] [place] [address] Prince Freitas MD [address] [place] [address] [email or web address] documented as of this encounter Visit Diagnoses Not on filedocumented in this encounter Care Teams Delivery Representative Relationship Specialty Start Date End Date Kym Carranza MD [address] [place] [address] PCP - General Internal Medicine 12/22/21 Hong Maddox MD [address] [address] [email or web address] Historical LMR Provider 07/04/17 Pravin Landis MD [address] [place] [address] [email or web address] Primary Oncologist Medical Oncology 02/08/21 Johana Amador MD [address] [address] Referring Physician Gastroenterology 03/27/21 Carmen Felix MD 271 [place] [phone] Ramos [email or web address] Medical Oncology 03/11/24 documented as of this encounter Additional Source Comments The information contained in this document represents components of the legal health record. It is not the complete legal health record.[facility]
--- OUTSIDE RECORDS SUMMARY | 2025-07-23 15:29 | XMS_ITS | Encounter Summary ---
Author Organization [facility] Address [address] [place] [address] Phone Care Team Providers Care Menswear Salesperson Name Role Phone Evangelist Gabriel MD Unavailable [phone] Vignesh Farias MD Unavailable [phone] Dixon Quiñones NP Unavailable [phone] Hong Maddox MD Unavailable [phone] Kym Carranza MD Primary Care Provide r Self-Referred, Patient Unavailable Unavailab Pravin Leung MD Unavailable [phone] Johana Amador MD Unavailable [phone] Johana Amador MD Primary Care Provid er Kym Carranza MD Primary Care Provide r Carmen Felix MD Unavailable [phone] Encounter Details Date Type Department Care Team (Late st Contact Info) Description 02/10/2021 Ancillary Orders [facility],Outside Imaging [address] [place], [place] [phone] System, Provider Not In, [facility] [address] [address] Social History Tobacco Use Types Packs/Day Years [...] Description 12/28/2025 1:20 PM EDT Office Visit [facility] [address] [place] [address] 3rd Floor, [address] [place] [address] Prince Freitas MD [address] [facility], [address] [place] [address] [email or web address] documented as of this encounter Results * CT Abdomen/Pelvis Outside (No Interpretation) (12/02/2020 12:00 AM EDT) Narrative SYSTEMGENERATED, DOCUMENTATION - 02/10/2021 10:32 AM EDT This study is for PACS storage only and not for interpretation. us Provider Not In System PhD IMG OUTSIDE IMAGING W /OUT INTERPRETATION Final Result documented in this encounter Visit Diagnoses Not on filedocumented in this encounter Care Teams Menswear Salesperson Relationship Specialty Start Date End Date Kym Carranza MD [address] [place] [address] 1 [place] [address] PCP - General Internal Medicine 11/28/20 05/04/21 Johana Amador MD [address] [place] [address] PCP - General Gastroenterology 05/05/21 12/21/21 Kym Carranza MD [address] [place] [address] 1 [place] [address] PCP - General Internal Medicine 12/22/21 Evangelist Gabriel MD 22 [facility], [address] [address] [email or web address] Historical LMR Provider 07/04/17 09/23/21 Vignesh Farias MD [address] [place] [address] [email or web address] Historical LMR Provider 07/04/17 09/23/21 Dixon Quiñones NP [address] [place] [address] [address] Historical LMR Provider 07/04/17 2 Hong Maddox MD [address] [place] [address] [email or web address] Historical LMR Provider 07/04/17 Self-Referred, Patient Referring Physician 11/28/20 Pravin Landis MD [address] [place] [address] [email or web address] Primary Oncologist Medical Oncology 02/08/21 Johana Amador MD [address] [place] [address] Referring Physician Gastroenterology 03/27/21 Carmen Felix MD [address] [place] [phone] Ramos [email or web address] Medical Oncology 03/11/24 documented as of this encounter Additional Source Comments The information contained in this document represents components of the legal health record. It is not the complete legal health record.[facility]
--- OUTSIDE RECORDS SUMMARY | 2025-07-23 15:29 | XMS_ITS | Encounter Summary ---
Author Organization [facility] Address [address] [place] [address] Phone Care Team Providers Care Staff Nurse Midwife Name Role Phone Evangelist Gabriel MD Unavailable [phone] Vignesh Farias MD Unavailable [phone] Dixon Quiñones NP Unavailable [phone] Hong Maddox MD Unavailable [phone] Kym Carranza MD Primary Care Provide r Self-Referred, Patient Unavailable Unavailab Pravin Leung MD Unavailable [phone] Johana Amador MD Unavailable [phone] Johana Amador MD Primary Care Provid er Kym Carranza MD Primary Care Provide r Carmen Felix MD Unavailable [phone] Encounter Details Date Type Department Care Team (Late st Contact Info) Description 02/06/2021 Procedure Pass [facility], [address] [phone] Social History Tobacco Use Types Packs/Day Years [...] Description 12/28/2025 1:20 PM EDT Office Visit [facility] [address] [place] [address] 3rd [facility], [address] [place] [address] Prince Freitas MD [address] [place] [address] [email or web address] documented as of this encounter Visit Diagnoses Not on filedocumented in this encounter Care Teams Staff Nurse Midwife Relationship Specialty Start Date End Date Kym Carranza MD [address] [place] [address] PCP - General Internal Medicine 11/28/20 05/04/21 Johana Amador MD [address] [place] [address] PCP - General Gastroenterology 05/05/21 12/21/21 Kym Carranza MD [address] [place] [address] PCP - General Internal Medicine 12/22/21 Evangelist Gabriel MD [address] [place] [address] [email or web address] Historical LMR Provider 07/04/17 09/23/21 Vignesh Farias MD [address] [place] [address], [address] [place] [address] [email or web address] Historical LMR Provider 07/04/17 09/23/21 Dixon Quiñones NP [address] [place] [address] [address] [place] [address] Historical LMR Provider 07/04/17 2 Hong Maddox MD [address] [place] [address] [email or web address] Historical LMR Provider 07/04/17 Self-Referred, Patient Referring Physician 11/28/20 Pravin Landis MD [address] [place] [address] [email or web address] Primary Oncologist Medical Oncology 02/08/21 Johana Amador MD [address] [place] [address] Referring Physician Gastroenterology 03/27/21 Carmen Felix MD [address] [place] [phone] Ramos [email or web address] Medical Oncology 03/11/24 documented as of this encounter Additional Source Comments The information contained in this document represents components of the legal health record. It is not the complete legal health record.[facility]
== END 2025-07-23 14:35 | disposition home or self-care (01) ==
LOC: HO.ENCR 13:22
PROVIDERS: PCP Internal Medicine; Visit Provider Physician Assistant Medical
DX: E11.21 Type 2 diabetes mellitus with diabetic nephropathy (principal); C25.9 Malignant neoplasm of pancreas, unspecified

== ENCOUNTER → 2025-07-23 13:22 | Outpatient (BNVA) | payer OTHER, SELFPAY | PROVIDERS: PCP Internal Medicine; Visit Provider Physician Assistant Medical | DX: E11.21 Type 2 diabetes mellitus with diabetic nephropathy (principal); C25.9 Malignant neoplasm of pancreas, unspecified | CPT/HCPCS: 82947 ==

== ENCOUNTER 2025-08-06 13:06 | Outpatient (AMB) | payer OTHER, SELFPAY ==
--- OUTSIDE RECORDS SUMMARY | 2025-08-02 09:48 | XMS_ITS | Encounter Summary ---
Author Organization [facility] [place] [address] Care Team Providers Care Flavor Extractor Name Role Phone Jung Carranza MD Primary Care Provider [phone] Reason for Visit * Reason Comments OP Infusion Hydration and Port B lood Draw Encounter Details Date Type Department Care Team (Latest Contact Info) Description 08/02/2025 9:48 AM EST - 08/02/2025 11:59 PM EST Hospital Encounter [facility] [address] [address] Carmen Felix MD 271 [place] [address] Malignant neoplasm of tail of [...] Sign Reading Time Taken Comments Blood Pressure 126/85 08/02/2025 11:29 AM EST Pulse 74 08/02/2025 11:29 AM EST Temperature 36.8 C (98.3 F) 08/02/2025 10:05 AM EST Respiratory Rate 18 08/02/2025 10:05 AM EST Oxygen Saturation 97% 08/02/2025 10:05 AM EST Inhaled Oxygen Concentration - - Weight [...] documented in this encounter Progress Notes * Cyndy Ceballos RN - 08/02/2025 10:00 AM EST 1026- Patient arrives, ambulatory to unit for hydration and port blood draw prior to chemotherapy tomorrow. Hydration and Electrolyte plan is in place with orders to give 1000 mls of NS over one houronce weekly. Patient reports feeling well today. She had a poor day yesterday but says this morningshe woke up with good energy and did a lot around the house. She mentions she had a recent URI thatshe is still recovering from. She notes dyspnea on exertion and ongoing cough but both improving. She is otherwise doing well and offers no questions for this nurse about the plan of care for today. Treatment plan reviewed with patient and hydration released from plan. Right chest port a cath accessed without difficulty and standing order labs (CBCD, CMP) drawn off port as ordered. Sent routinely. Port flushed and hydration initiated over one hour as ordered. Patient given refreshments and remains comfortable in recliner. The call milner is in reach. 1132- Hydration completed and patient tolerated well. BP rechecked and has now normalized. Patient is feeling well for discharge. Port flushed and deaccessed per protocol. Gauze dressing with paper tape applied to site. Labs drawn earlier reviewed and CBCD only resulted at this time - stable and okay for treatment. CMP pending. Patient updated and knows the remainder of the results will be reviewed during chart checks later today. She will be contacted if needed. She confirms she is aware of the appointment time in place for treatment tomorrow and denies needing a printed reminder slip. She left the unit stable, ambulatory without questions or concerns. documented in this encounter Plan of Treatment Upcoming Encounters Date Type Department Care Team (Late st Contact Info) Description 08/09/2025 8:30 AM EST Appointment [facility] [address] [place] [phone] 08/16/2025 10:45 AM EST Office Visit [facility] Hematology Oncology [address] [place] [phone] Carmen Felix MD [address] [place] [phone] documented as of this encounter Procedures Procedure Name Priority Date/Time Associated Diagnosis Comments CBC WITH AUTO DIFFERENTIAL Routine 08/02/2025 10:23 AM EST Malignant neoplasm of tail of pancreas (CMS/HCC V24, CMS/HCC V28) CBC AND DIFFERENTIAL Routine 08/02/2025 10:23 AM EST Malignant neoplasm of tail of pancreas (CMS/HCC V24, CMS/HCC V28) COMPREHENSIVE METABOLIC PANEL Routine 08/02/2025 10:23 AM EST Malignant neoplasm of tail of pancreas (CMS/HCC V24, CMS/HCC V28) documented in this encounter Results * (ABNORMAL) CBC auto differential (08/02/2025 10:23 AM EST) WBC 5.8 4.8 - 10.8 K/[facility] LAB HEMETOLOGY METHOD 08/02/2025 10:56 AM EST [facility] RBC 3.80 3.80 - 4.80 M/[facility] LAB HEMETOLOGY METHOD 08/02/2025 10:56 AM [facility] Hemoglobin 12.1 11.5 - 16.0 g/dL LAB HEMETOLOGY METHOD 08/02/2025 10:56 AM [facility] Hematocrit 36.1 35.0 - 47.0 % LAB HEMETOLOGY METHOD 08/02/2025 10:56 AM [facility] MCV 95.0 79.0 - 98.0 FL LAB HEMETOLOGY METHOD 08/02/2025 10:56 AM [facility] MCH 31.8 27.0 - 32.0 pcg LAB HEMETOLOGY METHOD 08/02/2025 10:56 AM [facility] MCHC 33.5 32.0 - 37.0 g/dL LAB HEMETOLOGY METHOD 08/02/2025 10:56 AM [facility] RDW 15.0 11.0 - 15.0 % LAB HEMETOLOGY METHOD 08/02/2025 10:56 AM [facility] Platelets 422(H) 130 - 400 K/mcL LAB HEMETOLOGY METHOD 08/02/2025 10:56 AM [facility] MPV 10.0 7.0 - 11.0 FL LAB HEMETOLOGY METHOD 08/02/2025 10:56 AM [facility] NRBC 2.4(H) <1.0 % LAB HEMETOLOGY METHOD 08/02/2025 10:56 AM [facility] NRBC Absolute 0.14(H) <0.10 K/mcL LAB HEMETOLOGY METHOD 08/02/2025 10:56 AM [facility] Neutrophils Relative 43.4 % LAB HEMETOLOGY METHOD 08/02/2025 10:56 AM [facility] Lymphocytes Relative 30.2 % LAB HEMETOLOGY METHOD 08/02/2025 10:56 AM [facility] Monocytes Relative 19.5 % LAB HEMETOLOGY METHOD 08/02/2025 10:56 AM EST [facility] Eosinophils Relative 4.3 % LAB HEMETOLOGY METHOD 08/02/2025 10:56 AM [facility] Basophils Relative 1.0 % LAB HEMETOLOGY METHOD 08/02/2025 10:56 AM [facility] Immature Granulocytes Relative 1.6 % LAB HEMETOLOGY METHOD 08/02/2025 10:56 AM [facility] Neutrophils Absolute 2.52 1.50 - 7.00 K/mcL LAB HEMETOLOGY METHOD 08/02/2025 10:56 AM [facility] Lymphocytes Absolute 1.75 1.00 - 5.00 K/mcL LAB HEMETOLOGY METHOD 08/02/2025 10:56 AM [facility] Monocytes Absolute 1.13(H) 0.20 - 1.00 K/mcL LAB HEMETOLOGY METHOD 08/02/2025 10:56 AM [facility] Eosinophils Absolute 0.25 0.00 - 0.50 K/mcL LAB HEMETOLOGY METHOD 08/02/2025 10:56 AM [facility] Basophils Absolute 0.06 0.00 - 0.20 K/mcL LAB HEMETOLOGY METHOD 08/02/2025 10:56 AM [facility] Immature Granulocytes Absolute 0.09(H) 0.00 - 0.03 K/mcL LAB HEMETOLOGY METHOD 08/02/2025 10:56 AM [facility] Blood Blood sample taken from central line / Unknown Existing Catheter / Unknown 08/02/2025 10:23 AM EST 08/02/2025 10:44 AM EST us Subramsarah Felix MD LAB BLOOD ORDERABLE S Final Result [facility] [address] [place] [address], [place] [phone] * (ABNORMAL) Comprehensive metabolic panel (08/02/2025 10:23 AM EST) Sodium 138 133 - 145 mmol/L LAB CHEMISTRY METHOD 08/02/2025 11:12 AM [facility] Potassium 4.5 3.5 - 5.5 mmol/L LAB CHEMISTRY METHOD 08/02/2025 11:12 AM [facility] Chloride 107 96 - 110 mmol/L LAB CHEMISTRY METHOD 08/02/2025 11:12 AM [facility] CO2 25 21 - 32 mmol/L LAB CHEMISTRY METHOD 08/02/2025 11:12 AM [facility] Anion Gap 6 3 - 11 LAB CHEMISTRY METHOD 08/02/2025 11:12 AM [facility] Glucose 347(H) 70 - 100 mg/dL LAB CHEMISTRY METHOD 08/02/2025 11:12 AM [facility] BUN 23 5 - 25 mg/dL LAB CHEMISTRY METHOD 08/02/2025 11:12 AM [facility] Creatinine 0.98 0.50 - 1.10 mg/dL LAB CHEMISTRY METHOD 08/02/2025 11:12 AM [facility] eGFR 60 >=60 mL/min/1. 73m2 LAB CHEMISTRY METHOD 08/02/2025 11:12 AM [facility] Comment:Calculation based on the Chronic Kidney Disease Epidemiology Collaboration (CKD-EPI) equation refit without adjustment for race. BUN/Creatinine Ratio 23.5 LAB CHEMISTRY METHOD 08/02/2025 11:12 AM [facility] Calcium 8.6 8.5 - 10.5 mg/dL LAB CHEMISTRY METHOD 08/02/2025 11:12 AM [facility] AST (SGOT) 117(H) 10 - 42 unit/L LAB CHEMISTRY METHOD 08/02/2025 11:12 AM [facility] ALT (SGPT) 162(H) 10 - 60 unit/L LAB CHEMISTRY METHOD 08/02/2025 11:12 AM EST [facility] Alkaline Phosphatase 71 42 - 121 unit/L LAB CHEMISTRY METHOD 08/02/2025 11:12 AM EST [facility] Total Protein 5.5(L) 6.0 - 8.0 g/dL LAB CHEMISTRY METHOD 08/02/2025 11:12 AM EST [facility] Albumin 2.8(L) 3.2 - 5.0 g/dL LAB CHEMISTRY METHOD 08/02/2025 11:12 AM [facility] Total Bilirubin 0.8 0.0 - 1.4 mg/dL LAB CHEMISTRY METHOD 08/02/2025 11:12 AM EST [facility] Blood Blood sample taken from central line / Unknown Existing Catheter / Unknown 08/02/2025 10:23 AM EST 08/02/2025 10:44 AM EST us Subramony SubJs STORY LAB BLOOD ORDERABLE S Final Result [facility] [address] [place] [address], documented in this encounter Visit Diagnoses Diagnosis [...] mL/hr, Administer over 1 Hours, Once, On Sat08/02/25 at 1045, For 1 doseIndications:Malignant neoplasm of tail of pancreas (CMS/HCC V24, CMS/HCC V28) New Bag 08/02/2025 10:25 AM EST 1,000 mL 1000 mL/hr sodium chloride 0.9 % flush 10 mL 10 mL, intravenous, As needed, line care, per institutional policy, Starting on Sat08/02/25 at 1015Indications:Malignant neoplasm of tail of pancreas (CMS/HCC V24, CMS/HCC V28) Given 08/02/2025 10:23 AM EST 10 mL sodium chloride 0.9 % flush 10 mL 10 mL, intravenous, As needed, line care, per institutional policy, Starting on Sat08/02/25 at 1015Indications:Malignant neoplasm of tail of pancreas (CMS/HCC V24, CMS/HCC V28) Given 08/02/2025 11:32 AM EST 10 mL documented in this encounter Orders Nursing Count Last Ordered Date First Orde red Date ONC NURSING COMMUNICATION 10 1 08/02/2025 ONC NURSING COMMUNICATION 12 1 08/02/2025 ONC NURSING COMMUNICATION 5 1 08/02/2025 documented in this encounter Care Teams Flavor Extractor Relationship Specialty Start Date End Date Jung Carranza MD [address] [facility] [address] [place], [place] PCP - General Internal Medicine 12/08/18 documented as of this encounter
--- OUTSIDE RECORDS SUMMARY | 2025-08-06 08:45 | XMS_ITS | Encounter Summary ---
Author Organization [facility] [place] [address] Care Team Providers Care Mimeograph Operator Name Role Phone Jung Carranza MD Primary Care Provider [phone] Encounter Details Date Type Department Care Team (Late st Contact Info) Description 08/06/2025 8:45 AM EST Lab Draw Station - [facility] [address] [facility] [address] [place] [address] Malignant neoplasm of tail of pancreas ([facility]/HCC V24, CMS/HCC V28); Drug therapy Social History Tobacco Use Types Packs/Day Years [...] 3:44 AM EDT Alannah Merchant RN * Do you have serious difficulty [...] Alannah Sahni RN documented in this encounter Plan of Treatment Upcoming Encounters Date Type Department Care Team (Late st Contact Info) Description 08/09/2025 8:[address] [facility] [address] [place] [phone] 08/16/2025 10:45 AM EST Office Visit [facility] Hematology Oncology [address] [place] [phone] Carmen Felix MD [address] [place] [phone] Pending Results Name Type Priority Associated Diagnoses Date /Time Cancer antigen 19-9 Lab Routine Malignant neoplasm of tail of pancreas (CMS/HCC V24, CMS/HCC V28) 08/06/2025 8:41 AM EST documented as of this encounter Procedures Procedure Name Priority Date/Time Associated Diagnosis Comments CBC WITH AUTO DIFFERENTIAL Routine 08/06/2025 8:41 AM EST Malignant neoplasm of tail of pancreas (CMS/HCC V24, CMS/HCC V28) Drug therapy CBC AND DIFFERENTIAL Routine 08/06/2025 8:41 AM EST Malignant neoplasm of tail of pancreas (CMS/HCC V24, CMS/HCC V28) Drug therapy COMPREHENSIVE METABOLIC PANEL Routine 08/06/2025 8:41 AM EST Malignant neoplasm of tail of pancreas (CMS/HCC V24, CMS/HCC V28) documented in this encounter Results * (ABNORMAL) CBC auto differential (08/06/2025 8:41 AM EST) WBC 6.4 4.8 - 10.8 K/mcL LAB HEMETOLOGY METHOD 08/06/2025 12:46 PM [facility] RBC 4.00 3.80 - 4.80 M/mcL LAB HEMETOLOGY METHOD 08/06/2025 12:46 PM [facility] Hemoglobin 12.8 11.5 - 16.0 g/dL LAB HEMETOLOGY METHOD 08/06/2025 12:46 PM [facility] Hematocrit 39.6 35.0 - 47.0 % LAB HEMETOLOGY METHOD 08/06/2025 12:46 PM [facility] MCV 99.2(H) 79.0 - 98.0 FL LAB HEMETOLOGY METHOD 08/06/2025 12:46 PM [facility] MCH 32.1(H) 27.0 - 32.0 pcg LAB HEMETOLOGY METHOD 08/06/2025 12:46 PM [facility] MCHC 32.3 32.0 - 37.0 g/dL LAB HEMETOLOGY METHOD 08/06/2025 12:46 PM [facility] RDW 15.0 11.0 - 15.0 % LAB HEMETOLOGY METHOD 08/06/2025 12:46 PM [facility] Platelets 532(H) 130 - 400 K/mcL LAB HEMETOLOGY METHOD 08/06/2025 12:46 PM [facility] MPV 10.0 7.0 - 11.0 FL LAB HEMETOLOGY METHOD 08/06/2025 12:46 PM [facility] NRBC 1.6(H) <1.0 % LAB HEMETOLOGY METHOD 08/06/2025 12:46 PM [facility] NRBC Absolute 0.10(H) <0.10 K/mcL LAB HEMETOLOGY METHOD 08/06/2025 12:46 PM [facility] Neutrophils Relative 48.1 % LAB HEMETOLOGY METHOD 08/06/2025 12:46 PM [facility] Lymphocytes Relative 27.2 % LAB HEMETOLOGY METHOD 08/06/2025 12:46 PM [facility] Monocytes Relative 18.0 % LAB HEMETOLOGY METHOD 08/06/2025 12:46 PM [facility] Eosinophils Relative 5.2 % LAB HEMETOLOGY METHOD 08/06/2025 12:46 PM [facility] Basophils Relative 0.9 % LAB HEMETOLOGY METHOD 08/06/2025 12:46 PM [facility] Immature Granulocytes Relative 0.6 % LAB HEMETOLOGY METHOD 08/06/2025 12:46 PM [facility] Neutrophils Absolute 3.08 1.50 - 7.00 K/mcL LAB HEMETOLOGY METHOD 08/06/2025 12:46 PM [facility] Lymphocytes Absolute 1.74 1.00 - 5.00 K/mcL LAB HEMETOLOGY METHOD 08/06/2025 12:46 PM [facility] Monocytes Absolute 1.15(H) 0.20 - 1.00 K/mcL LAB HEMETOLOGY METHOD 08/06/2025 12:46 PM [facility] Eosinophils Absolute 0.33 0.00 - 0.50 K/mcL LAB HEMETOLOGY METHOD 08/06/2025 12:46 PM [facility] Basophils Absolute 0.06 0.00 - 0.20 K/mcL LAB HEMETOLOGY METHOD 08/06/2025 12:46 PM [facility] Immature Granulocytes Absolute 0.04(H) 0.00 - 0.03 K/mcL LAB HEMETOLOGY METHOD 08/06/2025 12:46 PM [facility] Blood Venous blood specimen / Unknown Venipuncture / Unknown 08/06/2025 8:41 AM EST 08/06/2025 11:24 AM EST Carmen Felix MD LAB BLOOD ORDERABLE S Final Result [facility] [address] [place] [address], [place] [phone] * (ABNORMAL) Comprehensive metabolic panel (08/06/2025 8:41 AM EST) Sodium 141 133 - 145 mmol/L 08/06/2025 12:09 PM [facility] Potassium 4.6 3.5 - 5.5 mmol/L 08/06/2025 12:09 PM [facility] Chloride 103 96 - 110 mmol/L 08/06/2025 12:09 PM [facility] CO2 28 21 - 32 mmol/L 08/06/2025 12:09 PM [facility] Anion Gap 10 3 - 11 08/06/2025 12:09 PM [facility] Glucose 301(H) 70 - 100 mg/dL 08/06/2025 12:09 PM [facility] BUN 24 5 - 25 mg/dL 08/06/2025 12:09 PM [facility] Creatinine 1.03 0.50 - 1.10 mg/dL 08/06/2025 12:09 PM [facility] eGFR 57(L) >=60 mL/min/1. 73m2 08/06/2025 12:09 PM [facility] Comment:Calculation based on the Chronic Kidney Disease Epidemiology Collaboration (CKD-EPI) equation refit without adjustment for race. BUN/Creatinine Ratio 23.3 08/06/2025 12:09 PM [facility] Calcium 9.0 8.5 - 10.5 mg/dL 08/06/2025 12:09 PM [facility] AST (SGOT) 115(H) 10 - 42 unit/L 08/06/2025 12:09 PM [facility] ALT (SGPT) 130(H) 10 - 60 unit/L 08/06/2025 12:09 PM [facility] Alkaline Phosphatase 76 42 - 121 unit/L 08/06/2025 12:09 PM [facility] Total Protein 5.7(L) 6.0 - 8.0 g/dL 08/06/2025 12:09 PM [facility] Albumin 3.8 3.2 - 5.0 g/dL 08/06/2025 12:09 PM [facility] Total Bilirubin 0.9 0.0 - 1.4 mg/dL 08/06/2025 12:09 PM [facility] Blood Venous blood specimen / Unknown Venipuncture / Unknown 08/06/2025 8:41 AM EST 08/06/2025 11:23 AM EST Subramsarah Felix MD LAB BLOOD ORDERABLE S Final Result [facility] [address] [place] [address], documented in this encounter Visit Diagnoses Diagnosis Malignant neoplasm of tail of pancreas (CMS/HCC V24, CMS/HCC V28) Malignant neoplasm of tail of pancreas Drug therapy Encounter for other specified aftercare documented in this encounter Care Teams Mimeograph Operator Relationship Specialty Start Date End Date Jung Carranza MD [address] [place] [address] [address] [place], [place] PCP - General Internal Medicine 12/08/18 documented as of this encounter
[2025-08-06 13:27] VITALS: BP 110/58; PULSE 94; O2SAT 94; BMI 28.0
--- NOTE | 2025-08-06 13:27 | MHC.OFFVIS ---
Vital Signs 08/06/25 13:27 Height 5 ft 4 in Weight 163 lb 2.273 oz BMI 28.0 BP 110/58 L Blood Pressure Location Rt brachial Position Sitting Pulse 94 Pulse Source Pulse Oximeter Pulse Oximetry (%) 94 Oxygen Delivery Method Room Air Intake Visit Reasons: COPD Continuous Improvement Coach Required: No Accompanied by: Self / Same As Patient Allergies latex Allergy (Severe, Verified 08/06/25 13:30) Swelling levofloxacin (Levaquin) Allergy (Severe, Verified 08/06/25 13:30) Swelling Aspirin Allergy (Severe, Uncoded 07/23/25 13:28) Swelling HPI Comments Details: The patient is a 75-year-old woman known history of lung cancers status post resections in addition to COPD. Overall she is doing very well. She is staying active she denies any significant dyspnea on exertion she has been using the inhalers as prescribed. Her last CT scan of the chest to assess her pulmonary nodules was back in March 2019 to follow-up a new pulmonary nodule. The appeared to be stable. The patient has had waxing waning pulmonary nodules. At this point the patient should have another CT scan of the chest in March 2020. Otherwise patient is without any other complaints at this time. 03/25/2020 the patient is here for pulmonary follow-up visit. Overall she is doing well from a respiratory status. She does have some shortness of breath with activity, mild in severity. Does have cough intermittently. She does take respiratory medications without any significant issue. We did review her CT scan of the chest from 2019, 2018 and also 2018. She has had multiple pulmonary nodules and she has had a history of cancer. Most recent CT scan of the chest demonstrates she is a slight change in the consistency of the right upper lobe nodular density. It appears to be little more solid and slightly more elongated. Again this may be just away was caught or the resolution. Therefore, at this point we will repeat the CT scan in 6 months. 09/29/2020 the patient is here for pulmonary follow-up visit. Overall she does complaint of dyspnea on exertion. Moderate severity. Does not appear to be getting any better. She has gained some weight which may be contributing. We did look at her most recent CT scan of the chest that she had a [facility]. I personally reviewed the CT scan with the patient.. I do not see any concerning nodular densities. At this point we can go back to the once a year CT scans. December 02, 2020 the patient is here for pulmonary follow-up visit. Since we last spoke she was diagnosed with colon cancer and screening colonoscopy. She was relatively asymptomatic. She now went to [place] and now it will be undergoing surgery after they do a full evaluation. From a respiratory status she is doing okay. Does have some dyspnea on exertion eboa-ck-xiwqeozf severity. Does get better with rest. Her last CT scan of the chest was reassuring with stable pulmonary nodules without any evidence of any metastatic disease that we can see at this point to the lungs. The patient is medically optimized from a respiratory status and is doing well from a pulmonary standpoint and will be able to consent for surgery for both anesthesia and the surgical intervention that she needs to have in [place]. The patient understands the risks which include atelectasis, hypoxia, prolonged mechanical ventilation and pneumonia. The risks at this point her minimal for her and she is able to have surgery from a pulmonary standpoint. 06/06/2021 the patient is here for a pulmonary follow-up visit. Since we last spoke the patient did undergo surgery for an early stage colon cancer. She was able to get it fully resected. she did not require chemotherapy which is reassuring. She did have a repeat CT scan of the chest at [facility]. no obvious concerns noted. However, need to compared to the CT scan from [facility] to be sure completely. For the last few weeks she has noticed increasing shortness of breath with exertion moderate severity. She actually felt well after surgery. She has been using her Symbicort but typically just once a day. She needs to maximize at this time to twice a day and I did recommend she start Spiriva in conjunction to optimize his respiratory medication therapy. 12/05/2021 the patient is here for pulmonary follow-up visit. Overall the patient has been well from a respiratory status. She was concerned because her CEA laboratory came back elevated. Therefore she underwent a PET/ CT scan at [facility]. They could not find any evidence of any cancer. she is now due for colonoscopy. From a pulmonary standpoint her CT scans have been stable. She is following closely with serial CT scans. She is complaining of chest congestion mucus buildup and raspiness of the voice. She does comment also that she has developed increased reflux symptoms. I do believe her reflux symptoms are aggravating her larynx and resulting in the raspiness and mucus buildup. 06/05/2022 the patient is here for a pulmonary follow-up visit. Overall she is doing well. She continues use her respiratory therapy. She does not see any significant improvement when she does use the inhalers I did advise again try to cut down a little bit in the he continues to do about the same. She does have dyspnea on exertion. She also complains of reflux disease. She does take omeprazole in the morning and also Pepcid at nighttime. He seems to be helping. She does have episodes where she loses the ability to breathe brief few seconds. This sound like laryngospasm. Explained to her that the triggers could be the cause including underlying laryngeal penetration for reflux and/or postnasal drip resulting living will spasms. She should be sleeping elevated and wanting the reflux diet. The patient will follow up in [place] for the abnormal CT will. I believe she has been undergo a CT scan of the chest available. However she will be following up with them at the end of the year. She will not sure that I get a copy of the CT scan of the chest will for week follow-up with pulmonary nodules. Once the patient is without any other complaints. 12/06/2022 the patient is here for a pulmonary follow-up visit. Overall she is doing well until several weeks ago when she started developing a worsening productive cough. Moderate in severity. Initially was productive with yellow sputum, but now is non productive. Denies fever or chills. She continues use her respiratory therapy. She does not see any significant improvement when she does use the inhalers. On exam, she does have some wheezing. I will prescribe a course of prednisone. 03/07/2023 the patient is here for a pulmonary follow-up visit. She complains of worsening shortness of breath with minimal activity. She has been struggling with her breathing. Moderate severity. She took a few days of the prednisone during the last visit because of the exacerbation but she stop the because her sugars were elevated. She continues on a respiratory medicine. Is only partially helpful. On exam she actually has relatively normal breath sounds. No significant rhonchi or wheezing noted. I do believe the patient has gained weight and she is more deconditioning. We did talk about getting pulmonary function studies and starting pulmonary rehabilitation. The patient will go ahead and proceed with this process. As far as the other alternative medications we can consider Daliresp as a good option to minimize the steroid use specially since she cannot take the prednisone because of the elevated blood sugars. Her last CT scan of the chest was back in August. Otherwise patient is doing well. Likely will need follow-up imaging studies the end of this year or next year. We will discuss that further during the next follow-up in the fall. 05/06/2023 the patient is here for a pulmonary follow-up visit. Overall the patient is doing well. She ended up having her pulmonary rehabilitation at the [facility] through a cancer survivorship program. This appears to be working much better. She has been feeling better less shortness of breath. She continues her respiratory therapy. We did review her pulmonary function studies demonstrating only a mild obstructive process. She does have moderate diffusion impairment but she has had multiple surgeries. Overall very reassuring PFTs. She is that a follow-up in [place] the next few months. She should have a CT scan of chest August 2024 in [place]. Otherwise she will continue with current respiratory therapy and will follow-up in 6 months time. If any issues arise the patient will call for further evaluation. 12/23/2023 the patient is here for a pulmonary follow-up visit. Overall the patient has been doing well from a respiratory status. She has been following closely with [facility]. She has had a history of lung cancer x2 and more recently colon cancer. She has been getting CT scans of the abdomen and chest every 6 months in [place]. The patient is concerned because now she is going to change insurance companies and uncovered enough are any more. She is going to need a local oncologist to continue monitoring closely her cancer history. She has been cancer free now for about 3 years. I will refer her to a local hemo tolerating oncology's specialist. In the meantime the patient continues use respiratory therapy with good effect. Although, the appeared to be very expensive specially the Spiri va. Will go ahead and switch her over to Breztri to simplify her regimen. No need for prednisone. She does not use a rescue inhaler often. 06/25/2024 the patient is here for a pulmonary follow-up visit. The patient overall has been doing okay. She does complaint of dyspnea on exertion. Ovsx-ge-glejmdtb severity. Seems like her symptoms got worse when she started developing the abdominal discomfort. She went to the ER found to have a ventral hernia. She also has a hiatal hernia that causes her to have some GI symptoms including dyspepsia and epigastric discomfort. Still though she was evaluated by General surgery and felt that she needed surgery for the significant ventral hernia. She did have spirometry in the office because of the shortness of breath and she appears to have a mild obstruction consistent with mild COPD. In addition to that she has a significant amount of small airways disease. Therefore will go ahead and optimize her respiratory therapy by having her take the Symbicort twice a day 2 puffs and also start Spiriva. Hopefully by providing her maximum bronchodilation effect she is going to feel better. From a pulmonary standpoint the patient may be able to proceed with surgery. She does have moderate risk for perioperative pulmonary complications which includes bronchospasms, hypoxia, atelectasis, pneumonia. At this point she is medically optimized from pulmonary standpoint may be able to proceed with anesthesia and surgery. The patient will follow-up in 3 months will reassess. 02/09/2025 the patient is here for pulmonary follow-up visit. Overall, complains of abdominal pains, moderate to severe.. She did have her abdominal surgery for hernia repair and she still has swelling. She did not have any respiratory issues. She continues use her respiratory medications as prescribed. No recent exacerbations which is reassuring she did finally see Oncology. She is going to follow-up with them soon. She should be up for a CT scan of the chest. Await for her to be seen by Oncology to see what they want to do. Otherwise will request for sometime in the spring. The patient did have a bad fall which she hurt her coccyx bone. She has a hard time seeing him. Otherwise patient is without any other complaints. Will go ahead and follow-up with her in 4-6 months. I which time if the patient has not had a CT scan will make sure to have 1 done. the patient did follow-up with Oncology. The plan is for her to feel better in to have decreased pain and swelling in order to start chemotherapy. She did have imaging studies at [facility]. Will go ahead and request a release of medical records to get her most recent imaging studies. 08/06/2025 the patient is here for pulmonary follow-up visit. The patient did see Oncology and she was diagnosed with pancreatic cancer. She did undergo surgery resection 4. Currently on chemotherapy. She did receive the 1st 7 cycles and she was doing fine but then she started developing adverse effects including neutropenia in hepatitis. She has not been able to go back on therapy. She does have a cough. She was placed on prophylactic antibiotics. Overall seems to be doing okay from that standpoint although she still having some chest congestion. If she continues to have congestion she can always call me with the name of the antibiotic sick she is taking to make sure that we give her additional respiratory coverage. In the meantime she continues use her respiratory therapy as prescribed. [facility] Medical History (Updated 06/03/25 @ 21:06 by RALPH Ng) Decreased GFR Pancreatic cancer CHF (congestive heart failure) Renal insufficiency Peripheral sensory neuropathy due to type 2 diabetes mellitus Type II diabetes mellitus History of transfusion of packed red blood cells Migraine History of placement of stent in LAD coronary artery Osteoporosis Hyperlipidemia Depression CAD (coronary artery disease) Sleep apnea On anticoagulant therapy TIA (transient ischemic attack) Myocardial infarction Obesity Diabetes Dyslipidemia History of colon cancer HTN (hypertension) Carotid stenosis, asymptomatic GERD (gastroesophageal reflux disease) Colon cancer Pre-op chest exam Lung cancer Pulmonary nodules Dyspnea COPD (chronic obstructive pulmonary disease) Pulmonary nodule Surgical History History of surgery History of incisional hernia repair (07/06/24) Hx of tonsillectomy Hx of tubal ligation History of dental surgery Hx of cardiac catheterization History of lobectomy of lung Family History Mother Stroke Diabetes Father Alcoholic cirrhosis of liver Social History Household Members: None Housing: House Are you a primary hospice care transitions coordinator to a significant other at home: No Do you presently have visiting nurse or other home services: No Patient Tobacco Use Status: Former Tobacco user Tobacco use type: Cigarette Years Smoked: 20+ Years Second Hand Smoke Exposure: No service: No Review of Systems Const Reports body aches, Denies chills, Reports daytime sleepiness, Reports difficulty sleeping, Reports fatigue, Denies fever(s), Denies weight gain and Reports weight loss ENT Denies dizziness Card Denies chest pain, Denies leg edema, Denies lightheadedness, Denies palpitations, Denies dyspnea on exertion, Denies orthopnea and Denies other Resp Denies cough and Denies dyspnea on exertion GI Reports as per HPI, Reports abdominal pain, Denies hematochezia and Denies change in stool character Musc Denies abnormal gait, Denies muscle weakness, Denies numbness, Denies radiating pain into limb and Denies tingling Neuro Denies abnormal gait, Denies dizziness, Denies numbness and Denies tingling Endo Reports fatigue and Denies palpitations Physical Exam Vital Signs: Last Vital Signs Pulse 94 08/06/25 13:27 BP 110/58 L 08/06/25 13:27 Pulse Ox 94 08/06/25 13:27 Oxygen Delivery Method Room Air 08/06/25 13:27 BMI result Body Mass Index 28.0 Const General: alert HEENT General nose exam: Abnormal external nose present and Nasal discharge present Eyes Pupils: Equal, round and reactive pupils present Neck Neck: Yes normal visual inspection, Yes full ROM and Yes no lymphadenopathy Chest Chest palpation & inspection: normal inspection of the chest Resp Effort & Inspection: normal respiratory effort Auscultation: no wheezes and diminished lung sounds Cardio Rate: regular rate Rhythm: regular rhythm Heart sounds: S1 normal heart sound present and S2 normal heart sound present GI Palpation (GI): Soft to palpation and nontender Auscultation: normal bowel sounds General: Yes no CVA tenderness Back/Spine/Pelvis Back: no CVA tenderness Skin General skin exam: rashes and/or lesions noted Neuro Cranial nerves: Yes Equal, round and reactive pupils present Assessment & Plan Assessment & Plan (1) COPD (chronic obstructive pulmonary disease): Code(s): J44.9 - Chronic obstructive pulmonary disease, unspecified Category: Medical Qualifiers: COPD type: COPD with acute exacerbation Qualified Code(s): J44.1 - Chronic obstructive pulmonary disease with (acute) exacerbation (2) Pulmonary nodules: Code(s): R91.8 - Other nonspecific abnormal finding of lung field Category: Medical (3) Dyspnea: Comment: Likely multifactorial. Does have ongoing COPD in addition to multiple lung resections. Code(s): R06.00 - Dyspnea, unspecified Category: Medical Qualifiers: Dyspnea type: dyspnea on exertion Qualified Code(s): R06.00 - Dyspnea, unspecified (4) Pulmonary nodule: Code(s): R91.1 - Solitary pulmonary nodule Category: Medical (5) GERD (gastroesophageal reflux disease): Code(s): K21.9 - Gastro-esophageal reflux disease without esophagitis Category: Medical Qualifiers: Esophagitis presence: without esophagitis Qualified Code(s): K21.9 - Gastro-esophageal reflux disease without esophagitis Plan Breztri reflux diet Continue PPI cont Pepcid at night F/U with oncology F/U 6 months Medications: New speyppuuzq-hmzuswgd-lyxuebpswa 160-9-4.8 mcg/actuation (Breztri Aerosphere) 2 inhalations inhalation BID 10.7 grams 11RF Refilled albuterol sulfate 90 mcg/actuation 2 inhalations inhalation Q6H PRN 18 grams 12RF shortness of breath or wheezing 30 days J44.9 - Chronic obstructive pulmonary disease, unspecified Coding Level of Care Code Est Pt Level 4 (76867) Insp[facility] Program cplx 4 or more Diagnoses Chronic obstructive pulmonary disease with acute exacerbation J44.1 COPD type: COPD with acute exacerbation Pulmonary nodules R91.8 Dyspnea on exertion R06.00 Dyspnea type: dyspnea on exertion Pulmonary nodule R91.1 Gastroesophageal reflux disease without esophagitis K21.9 Esophagitis presence: without esophagitis Time Spent (min) 16
--- OUTSIDE RECORDS SUMMARY | 2025-08-06 13:27 | XMS_ITS | Encounter Summary ---
Author Organization [facility] Address [address] [place] [address] Phone Care Team Providers Care Care Transition Manager Name Role Phone Evangelist Gabriel MD Unavailable Vignesh Farias MD Unavailable [phone] Dixon Quiñones NP Unavailable [phone] Hong Maddox MD Unavailable [phone] Kym Carranza MD Primary Care Provide r Self-Referred, Patient Unavailable Unavailab Pravin Leung MD Unavailable [phone] Johana Amador MD Unavailable [phone] Johana Amador MD Primary Care Provid er Kym Carranza MD Primary Care Provide r Carmen Felix MD Unavailable [phone] Encounter Details Date Type Department Care Team (Late st Contact Info) Description 12/20/2020 Procedure Pass [facility] Periop [address] [place], [place] [id number] Social History Tobacco Use Types Packs/Day Years [...] 7:00 PM EDT Derrick Palacio RN * Edinburgh Suicide Severity Rating Scale (Screener/Recent Self-Report) Question [...] Description 12/28/2025 1:20 PM EDT Office Visit [facility] [address] [place] [address] 3rd [facility], [address] [place] [address] Prince Freitas MD [address] [place] [address] [email or web address] documented as of this encounter Visit Diagnoses Not on filedocumented in this encounter Care Teams Care Transition Manager Relationship Specialty Start Date End Date Kym Carranza MD [address] [place] [address] [address] [place] [address] PCP - General Internal Medicine 11/28/20 05/04/21 Johana Amador MD [address] [place] [address] PCP - General Gastroenterology 05/05/21 12/21/21 Kym Carranza MD [address] [address] PCP - General Internal Medicine 12/22/21 Evangelist Gabriel MD [address] [place] [address], [address] [address] [email or web address] Historical LMR Provider 07/04/17 09/23/21 Vignesh Farias MD [address] [place] [address] [email or web address] Historical LMR Provider 07/04/17 09/23/21 Dixon Quiñones NP [address] [place] [phone] Historical LMR Provider 07/04/17 2 Hong Maddox MD [address] [place] [address] [email or web address] Historical LMR Provider 07/04/17 Self-Referred, Patient Referring Physician 11/28/20 Pravin Landis MD [address] [place] [address] [email or web address] Primary Oncologist Medical Oncology 02/08/21 Johana Amador MD [address] [place] [phone] Referring Physician Gastroenterology 03/27/21 Carmen Felix MD [address] [place] [phone] [email or web address] On[facility] 03/11/24 documented as of this encounter Additional Source Comments The information contained in this document represents components of the legal health record. It is not the complete legal health record.[facility]
--- OUTSIDE RECORDS SUMMARY | 2025-08-06 13:27 | XMS_ITS | Encounter Summary ---
Author Organization [facility] Address [address] [place] [address] Phone Care Team Providers Care Worksite Wellness Practitioner Name Role Phone Evangelist Gabriel MD Unavailable [phone] Vignesh Farias MD Unavailable [phone] Dixon Quiñones NP Unavailable [phone] Hong Maddox MD Unavailable [phone] Kym Carranza MD Primary Care Provide r Self-Referred, Patient Unavailable Unavailab Pravin Leung MD Unavailable Johana Amador MD Unavailable [phone] Johana Amador MD Primary Care Provid er Kym Carranza MD Primary Care Provide r Carmen Felix MD Unavailable [phone] Encounter Details Date Type Department Care Team ([facility] st Contact Info) Description 12/15/2020 Telephone [facility] [address] [place] [address] Kendall Garcia MD, MPH 75 [facility]3rd [place] [address] [email or web address] Social History Tobacco Use Types Packs/Day Years [...] Description 12/28/2025 1:20 PM EDT Office Visit [facility] [address] [place] [address] 3rd Floor, [address] [place] [address] Prince Freitas MD [address] [place] [address] [email or web address] documented as of this encounter Visit Diagnoses Not on filedocumented in this encounter Care Teams Worksite Wellness Practitioner Relationship Specialty Start Date End Date Kym Carranza MD [address] [place] [address] PCP - General Internal Medicine 11/28/20 05/04/21 Johana Amador MD [address] [place] [address] PCP - General Gastroenterology 05/05/21 12/21/21 Kym Carranza MD [address] [place] [address] PCP - General Internal Medicine 12/22/21 Evangelist Gabriel MD [address] [place] [address], [address] [address] Historical LMR Provider 07/04/17 09/23/21 Vignesh Farias MD 22 [facility] [address] [place] [address] [email or web address] Historical LMR Provider 07/04/17 09/23/21 Dixon Quiñones NP [address] [place] [address] [address] [place] [address] Historical LMR Provider 07/04/17 2 Hong Maddox MD [address] [place] [address] [email or web address] Historical LMR Provider 07/04/17 Self-Referred, Patient Referring Physician 11/28/20 Pravin Landis MD [address] [place] [address] [email or web address] Primary Oncologist Medical Oncology 02/08/21 Johana Amador MD [address] [address] Referring Physician Gastroenterology 03/27/21 Carmen Felix MD [address] [place] [address] Ramos Medical Oncology 03/11/24 documented as of this encounter Additional Source Comments The information contained in this document represents components of the legal health record. It is not the complete legal health record.[facility]
--- OUTSIDE RECORDS SUMMARY | 2025-08-06 13:27 | XMS_ITS | Encounter Summary ---
Author Organization [facility] [place] [address] Care Team Providers Care Coil Winding Supervisor Name Role Phone Jung Carranza MD Primary Care Provider [phone] Encounter Details Date Type Department Care Team (Late st Contact Info) Description 08/02/2025 Telephone [facility] [address] [place] [address] 2nd [place] [address] Nuria Muñoz RN Social History Tobacco Use Types Packs/Day Years [...] of Assessment Author No 01/19/2025 3:44 AM OANHT Alannah Merchant RN * Are you blind [...] documented in this encounter Progress Notes * Nurai Muñoz RN - 08/02/2025 3:01 PM EST Labs reviewed during chart checks with business systems consultant provider, Dr. Haskins. AST: 117 ALT: 162 Pt has hx of transaminates that Dr. Ray is aware of. Dr. Haskins recommended treatment be delayedby one week and case be reviewed with Dr. Ray tomorrow when he returns. Called to pt to review above information. Pt a bit upset as she has had a few tx delays. Active listening and reassurance offered. Pt verbalized understanding and agreed to plan. This RN to review case with Dr. Ray tomorrow. documented in this encounter Plan of Treatment Upcoming Encounters Date Type Department Care Team (Late st Contact Info) Description 08/09/2025 8:30 AM EST Appointment [facility] In[facility] Center [address] [place] [address] 2nd [place] [address] 08/16/2025 10:45 AM EST Office Visit [facility] Hematology Oncology [address] [place] [phone] Carmen Felix MD [address] [place] [address] documented as of this encounter Visit Diagnoses Not on filedocumented in this encounter Care Teams Coil Winding Supervisor Relationship Specialty Start Date End Date Jung Carranza MD 75 [facility] [address] [place], [place] PCP - General Internal Medicine 12/08/18 documented as of this encounter
--- OUTSIDE RECORDS SUMMARY | 2025-08-06 13:27 | XMS_ITS | Encounter Summary ---
Author Organization [facility] Address [address] [place] [address] Phone Care Team Providers Care Ring Attacher Name Role Phone Evangelist Gabriel MD Unavailable Vignesh Farias MD Unavailable [phone] Dixon Quiñones NP Unavailable Hong Maddox MD Unavailable [phone] Pravin Landis MD Unavailable Johana Amador MD Unavailable [phone] Johana Amador MD Primary Care Provid er Kym Carranza MD Primary Care Provide r Carmen Felix MD Unavailable [phone] Encounter Details Date Type Department Care Team (Late st Contact Info) Description 08/29/2021 Procedure Pass [address] [address] Social History Tobacco Use Types Packs/Day Years [...] Description 12/28/2025 1:20 PM EDT Office Visit [facility] [address] [facility] 3rd Floor, [address] [place] [address] Prince Freitas MD [address] [address] documented as of this encounter Visit Diagnoses Not on filedocumented in this encounter Care Teams Ring Attacher Relationship Specialty Start Date End Date Johana Amador MD [address] [place] [address] PCP - General Gastroenterology 05/05/21 12/21/21 Kym Carranza MD [address] [place] [address] PCP - General Internal Medicine 12/22/21 Evangelist Gabriel MD [address] [place] [address] Historical LMR Provider 07/04/17 09/23/21 Vignesh Farias MD [address] [place] [address] Historical LMR Provider 07/04/17 09/23/21 Dixon Quiñones NP [address] [place] [address] [phone] Historical LMR Provider 07/04/17 2 Hong Maddox MD [address] [address] [email or web address] Historical LMR Provider 07/04/17 Pravin Landis MD [address] [place] [address] [email or web address] Primary Oncologist Medical Oncology 02/08/21 Johana Amador MD [address] [place] [address] Referring Physician Gastroenterology 03/27/21 Carmen Felix MD [address] [place] [phone] Ramos [email or web address] Medical Oncology 03/11/24 documented as of this encounter Additional Source Comments The information contained in this document represents components of the legal health record. It is not the complete legal health record.[facility]
--- OUTSIDE RECORDS SUMMARY | 2025-08-06 13:27 | XMS_ITS | Encounter Summary ---
Author Organization [facility] Address [address] [facility] [address] [place] [address] Phone Care Team Providers Care Communication Clerk Name Role Phone Hong Maddox MD Unavailable [phone] Pravin Landis MD Unavailable Johana Amador MD Unavailable [phone] Kym Carranza MD Primary Care Provide r Carmen Felix MD Unavailable [phone] Encounter Details Date Type Department Care Team (Late st Contact Info) Description 03/13/2022 Procedure Pass [facility], [facility] [place] [address] [facility], Floor [address]1 [place] [address] Social History Tobacco Use Types [...] PM EDT Office Visit [facility] [address] [place] [address] 3rd Floor, [address] [place] [address] Prince Freitas MD 22 [facility], [address] [place] [address] [email or web address] documented as of this encounter Visit Diagnoses Not on filedocumented in this encounter Care Teams Communication Clerk Relationship Specialty Start Date End Date Kym Cararnza MD [address] [place] [address] [address] [place] [address] PCP - General Internal Medicine 12/22/21 Hong Maddox MD [address] [place] [address] [email or web address] Historical LMR Provider 07/04/17 Pravin Landis MD [address] [place] [address] [email or web address] Primary Oncologist Medical Oncology 02/08/21 Johana Amador MD [address] [place] [address] Referring Physician Gastroenterology 03/27/21 Carmen Felix MD [address] [place] [phone] Ramos [email or web address] Medical Oncology 03/11/24 documented as of this encounter Additional Source Comments The information contained in this document represents components of the legal health record. It is not the complete legal health record.[facility]
--- OUTSIDE RECORDS SUMMARY | 2025-08-06 13:27 | XMS_ITS | Encounter Summary ---
Author Organization [facility] Address [address] [facility] [address] [place] [address] Phone Care Team Providers Care Customer Care Agent Name Role Phone Hong Maddox MD Unavailable [phone] Pravin Landis MD Unavailable [phone] Johana Amador MD Unavailable [phone] Kym Carranza MD Primary Care Provide r Carmen Felix MD Unavailable [phone] Encounter Details Date Type Department Care Team (Late st Contact Info) Description 03/13/2022 Procedure Pass [facility], [facility] [place], [place] [address] [facility], Floor [address]1 [place] [address] Social History Tobacco Use Types [...] Description 12/28/2025 1:20 PM EDT Office Visit [facility] [address] [place] [address] 3rd Floor, [address] [place] [address] Prince Freitas MD 22 [facility], [address] [place] [address] [email or web address] documented as of this encounter Visit Diagnoses Not on filedocumented in this encounter Care Teams Customer Care Agent Relationship Specialty Start Date End Date Kym Carranza MD [address] [place] [address] 1 [place] [address] PCP - General Internal Medicine 12/22/21 Hong Maddox MD [address] [place] [address] [email or web address] Historical LMR Provider 07/04/17 Pravin Landis MD [address] [place] [address] [email or web address] Primary Oncologist Medical Oncology 02/08/21 Johana Amador MD [address] [place] [address] Referring Physician Gastroenterology 03/27/21 Carmen Felix MD [address] [place] [phone] [facility] Oncology 03/11/24 documented as of this encounter Additional Source Comments The information contained in this document represents components of the legal health record. It is not the complete legal health record.[facility]
--- OUTSIDE RECORDS SUMMARY | 2025-08-06 13:27 | XMS_ITS | Encounter Summary ---
Author Organization [facility] [place] [address] Care Team Providers Care Head Track Coach Name Role Phone Jung Carranza MD Primary Care Provider [phone] Encounter Details Date Type Department Care Team (Late st Contact Info) Description 07/26/2025 Telephone [facility] [address] [place] [address] 2nd [place] [address] Jessica Whitney RN Social History Tobacco Use Types Packs/Day [...] documented in this encounter Progress Notes * Jessica Whitney RN - 07/26/2025 9:06 AM EST 0910: PT calling this morning to cancel apt for today and tomorrow r/t not feeling well. PT sts shedeveloped a cough over the weekend along with feeling dizzy and fatigue. PT denies a fever nor feeling SOB. Using musinex with mild relief. PT sts she typically takes antibiotics every other week anddue for them today and plans to start this. PT requesting delay in treatment by 1 week. PT encouraged to call infusion with any worsening symptoms or concerns. scallop dredger MD Dr. Haskins made aware. Treatment apts delayed. documented in this encounter Plan of Treatment Upcoming Encounters Date Type Department Care Team (Late st Contact Info) Description 08/09/2025 8:30 AM EST Appointment [facility] [address] [place] [address] 2nd [place] [address] 08/16/2025 10:45 AM EST Office Visit [facility] Hematology Oncology [address] [place] [phone] Carmen Felix MD [address] [place] [address] documented as of this encounter Visit Diagnoses Not on filedocumented in this encounter Care Teams Head Track Coach Relationship Specialty Start Date End Date Jung Carranza MD 75 [facility] [address] [place], [place] PCP - General Internal Medicine 12/08/18 documented as of this encounter
--- OUTSIDE RECORDS SUMMARY | 2025-08-06 13:27 | XMS_ITS | Encounter Summary ---
Author Organization [facility] Address [address] [place] [address] Phone Care Team Providers Care Ornamental Ironworker Helper Name Role Phone Evangelist Gabriel MD Unavailable Vignesh Farias MD Unavailable [phone] Dixon Quiñones NP Unavailable [phone] Hong Maddox MD Unavailable [phone] Pravin Landis MD Unavailable [phone] Johana Amador MD Unavailable [phone] Johana Amador MD Primary Care Provid er Kym Carranza MD Primary Care Provide r Carmen Felix MD Unavailable [phone] Encounter Details Date Type Department Care Team (Late st Contact Info) Description 08/29/2021 Procedure Pass [address] [address] Social History Tobacco Use Types Packs/Day Years [...] Description 12/28/2025 1:20 PM EDT Office Visit [facility] [address] [facility] 3rd Floor, [address] [place] [address] Prince Freitas MD [address] [address] documented as of this encounter Visit Diagnoses Not on filedocumented in this encounter Care Teams Ornamental Ironworker Helper Relationship Specialty Start Date End Date Johana Amador MD [address] [place] [address] PCP - General Gastroenterology 05/05/21 12/21/21 yKm Carranza MD [address] [place] [address] PCP - General Internal Medicine 12/22/21 Evangelist Gabriel MD [address] [place] [address] Historical LMR Provider 07/04/17 09/23/21 Vignesh Farias MD [address] [place] [address] Historical LMR Provider 07/04/17 09/23/21 Dixon Quiñones NP [address] [place] [address] [phone] Historical LMR Provider 07/04/17 2 Hong Maddox MD [address] [address] [email or web address] Historical LMR Provider 07/04/17 Pravin Landis MD [address] [place] [address] [email or web address] Primary Oncologist Medical Oncology 02/08/21 Johana Amador MD [address] [place] [address] Referring Physician Gastroenterology 03/27/21 Carmen Felix MD [address] [place] [phone] Ramos Medical Oncology 03/11/24 documented as of this encounter Additional Source Comments The information contained in this document represents components of the legal health record. It is not the complete legal health record.[facility]
--- OUTSIDE RECORDS SUMMARY | 2025-08-06 13:27 | XMS_ITS | Clinical Summary ---
Author Organization [facility] Address [address] [place] [address] Care Team Providers Care Machinist Automotive Name Role Phone Jung Carranza MD Primary Care Provider [phone] Allergies Active Allergy Reactions Criticality Noted Date [...] age to complete this topic Care Teams Machinist Automotive Relationship Specialty Start Date End Date Bashiruddin, Jung, MD [address] [facility] [address] [place] [address] PCP - General Internal Medicine 02/12/24
--- OUTSIDE RECORDS SUMMARY | 2025-08-06 13:27 | XMS_ITS | Clinical Summary ---
Author Organization [facility] Address [address] [address] Phone Care Team Providers Care Courier Name Role Phone Hong Maddox MD Unavailable [phone] Pravin Landis MD Unavailable [phone] Johana Amador MD Unavailable [phone] Kym Carranza MD Primary Care Provide r Carmen Felix MD Unavailable [phone] Allergies Active Allergy Reactions Criticality Noted Date [...] THE BREAST TWICE DAILY MAINTENANCE. 3 Active ezetimibe (ZETIA) 10 mg tabletIndications:H yperlipidemia, unspecified hyperlipidemia type Take 1 tablet (10 mg total) by mouth daily. 90 tablet 3 5 Active rosuvastatin (CRESTOR) 40 MG tabletIndications:M edication refill TAKE 1 TABLET BY MOUTH EVERY NIGHT AT BEDTIME 100 tablet 2 5 Active clopidogrel (PLAVIX) 75 mg tabletIndications:M edication refill TAKE 1 TABLET BY MOUTH DAILY 100 tablet 2 5 Active Active Problems Problem Noted Date Diagnosed Date Malignant neoplasm of colon 02/21/2021 Cancer Staging:Pathologic stage from 12/20/2020:Stage IIA(pT3, pN0, cM0) - Signed by Jeannie Man MD, PhD on 02/21/2021 S/P colon resection 12/20/2020 Chronic obstructive pulmonary disease (COPD) 09/2020 Coronary artery disease invo lving [place] coronary artery of [place] heart without angina pectoris 11/11/2017 Overview (04/12/2020): 2000 PCI BMS LAD 2001 CATH EF 40 NONOBST 2016 NUKE ANT WI; EF 40-45 07/2019 ECHO EF 50-55%; DD1; 11/2019 NUKE ANT WI EF 41% Assessment & Plan (09/13/2020 2:48 [...] EST): As of the echocardiogram done at [facility] this is unchanged. Ejection fraction remains in the high 40s. Mixed hyperlipidemia 11/11/2017 Assessment & Plan (09/13/2020 2:49 PM EST): Recent profile drawn on the 22nd of this month include an LDL of [...] Type Department Care Team Description 07/06/2025 Refill [facility] [address] Floor, [address] [place] [address] Mary Anne Nixon CNP Medication Refill 06/28/2025 1:40 PM EDT Office Visit [facility] [address] Floor, [address] [place] [address] Prince Freitas MD Coronary artery disease of [place] artery of [place] heart with stable angina pectoris (Primary Dx); Essential hypertension; Hyperlipidemia, unspecified hyperlipidemia type 06/14/2025 12:26 PM EDT - 06/14/2025 11:59 PM EDT Hospital Encounter [facility] [place] [address] Prince Freitas MD Discharge Disposition: Home or Self Care 12/29/2024 Procedure Pass [facility] [place] [address] from Last 3 Months Family History Medical [...] Description 12/28/2025 1:20 PM EDT Office Visit [facility] [address]rd Floor, [address] [place], [place] [phone] Prince Freitas MD [address] [facility], [address] [place], [place] [phone] Health Maintenance Due Date Last Done Comments [...] this topic Medical Devices Implanted Type Area Rabbet Operator Device Identifier Shelf Expiration Date Model / [...] could actually find the 2021 study, in 2018 they thought the EF was 50% but [...] MD, MPH - 01/04/2022 2:42 PM EDT [facility] Gastroenterology Patient Name: Corin Alvarenga Procedure Date: 01/04/2022 2:42 PM Date of : 1950 Admit Type: Outpatient Age: 71 Room: 9 Gender: Female Note Status: Finalized Attending MD: MILA ALDRIDGE MD Procedure: Colonoscopy Indications: High risk colon cancer surveillance: Personal history of colon cancer Providers: MILA ALDRIDGE MD, ART MARIE, RN Referring MD: Johana Amador (Referring MD) [...] 0 Note Initiated On: 01/04/2022 2:42 PM us Johana Amador MD GI PROCEDURE ORDERAB LES Final Result * (ABNORMAL) Hemoglobin A1c (12/21/2020 3:47 AM EDT) HEMOGLOBIN A1C 7.7(H) 4.2 - 5.6 % [facility] Comment: HbA1c levels 5.7-6.4% [...] a CMBG of 114 mg/dL. Blood 12/21/2020 3:4 7 AM EDT 12/21/2020 4:25 AM EDT us Jose Navarro PA-C LAB BLOOD BKR ORDERABLES Final Result Performing Organization Address City/State/[facility] Co de Phone Number [facility] [address] [place] [phone] from Last 3 Months or Most Recently Relevant to Health Maintenance Insurance [employer]EMENT [place] [id number] Advance Directives For more information, please contact: [phone] (9AM - 5PM [facility], Saturday-Saturday) * Full Code (Latest Code Status on File) Date Activated Date Inactivated Comments 12/20/2020 6:12 PM Question Answer Comments Code Status Confirmed With: Patient * Full Code Date Activated Date Inactivated Comments 12/20/2020 10:44 AM 12/20/2020 6:12 PM Question Answer Comments Code Status Confirmed With: Patient Care Teams Courier Relationship Specialty Start Date End Date Kym Carranza MD [address] [place] [address] [address] [place] [address] PCP - General Internal Medicine 12/22/21 Hong Maddox MD [address] [place] [address] [email or web address] Historical LMR Provider 07/04/17 Pravin Landis MD [address] [place] [address] [email or web address] Primary Oncologist Medical Oncology 02/08/21 Johana Amador MD [address] [place] [address] Referring Physician Gastroenterology 03/27/21 Carmen Felix MD [address] [place] [phone] Ramos Medical Oncology 03/11/24 Additional Source Comments The information contained in this document represents components of the legal health record. It is not the complete legal health record.[facility]
--- OUTSIDE RECORDS SUMMARY | 2025-08-06 13:27 | XMS_ITS | Encounter Summary ---
Author Organization [facility] [place] [address] Care Team Providers Care Interventional Physiatrist Name Role Phone Jung Carranza MD Primary Care Provider [phone] Encounter Details Date Type Department Care Team (Late st Contact Info) Description 07/26/2025 Telephone [facility] [address] [place] [address] 2nd [place] [address] Sunshine Kimbrough RN Social History Tobacco Use Types Packs/Day [...] in this encounter Progress Notes * RALPH Carlin - 07/26/2025 2:53 PM EST Can schedule a visit with me tomorrow. If she has SOB/chest pain would need to go to ER. * Sunshine Kimbrough RN - 07/26/2025 10:47 AM EST This nurse spoke with pt after receiving a message that she was not feeling well . Pt reports she is able to drink fluids but her appetite is decreased. Pt reports a cough with clear sputum - pt denies fevers. Pt requests her treatment be delayed due to her fatigue ( appointment rescheduled during first encounter- pt aware of dates and times). Pt made aware she may need to be seen for supportive care sometime this week. Pt made aware this nurse will call her tomorrow to reassess. Pt reports shewill contact the infusion room with any concerns. documented in this encounter Plan of Treatment Upcoming Encounters Date Type Department Care Team (Late st Contact Info) Description 08/09/2025 8:30 AM EST Appointment [facility] [address] [place] [address] 2nd [place] [address] 08/16/2025 10:45 AM EST Office Visit [facility] Hematology Oncology [address] [place] [phone] Thiago-Carmen Ray MD [address] [place] [address] documented as of this encounter Visit Diagnoses Not on filedocumented in this encounter Care Teams Interventional Physiatrist Relationship Specialty Start Date End Date Jung Carranza MD [address] [place] [address] [address] [place], [place] PCP - General Internal Medicine 12/08/18 documented as of this encounter
--- OUTSIDE RECORDS SUMMARY | 2025-08-06 13:27 | XMS_ITS | Encounter Summary ---
Author Organization [facility] [place] [address] Care Team Providers Care Portable Feed Mill Operator Name Role Phone Jung Carranza MD Primary Care Provider [phone] Encounter Details Date Type Department Care Team (Late st Contact Info) Description 08/03/2025 Telephone [facility] [address] [place] [address] 2nd [place] [address] Nuria Muñoz RN Social History [...] documented in this encounter Progress Notes * Nuria Muñoz RN - 08/03/2025 4:34 PM EST This RN called pt to review treatment plan. This RN discussed case with Dr. Ray who recommended holding chemo this week. We will recheck labs on Saturday (pt plans to go to lab downstairs) and plan for treatment on Thursday 08/09 at 8:30. Pt verbalized concern with pushing off another treatment. Active listening and reassurance offered.All questions addressed. documented in this encounter Plan of Treatment Upcoming Encounters Date Type Department Care Team (Late st Contact Info) Description 08/09/2025 8:30 AM EST Appointment [facility] [address] [place] [address] [address] [place] [address] 08/16/2025 10:45 AM EST Office Visit [facility] Hemat[facility] Oncology [address] [place] [phone] Carmen Felix MD [address] [place] [phone] documented as of this encounter Visit Diagnoses Not on filedocumented in this encounter Care Teams Portable Feed Mill Operator Relationship Specialty Start Date End Date Jung Carranza MD [address] [place] [address] [address] [place], [place] PCP - General Internal Medicine 12/08/18 documented as of this encounter
--- OUTSIDE RECORDS SUMMARY | 2025-08-06 13:27 | XMS_ITS | Clinical Summary ---
Author Organization [facility] Address [address] [place] [address] Phone Care Team Providers Care Linux Developer Name Role Phone Jung Carranza MD Primary Care Provider [phone] Allergies Active Allergy Reactions Criticality Noted Date [...] each day. 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 Suggested by gastroenterolo gist-per patient for diarrhea. IBS Active dexAMETHasone (DECADRON) 4 mg tabletIndications :Malignant neoplasm of tail of pancreas (CMS/HCC V24, CMS/HCC V28) Take 8 mg (2 tablets) once daily, starting the day after treatment, for two days. Take in the morning with food. 30 tablet 1 5 Active prochlorperazine (COMPAZINE) 10 mg tabletIndications :Malignant neoplasm of tail of pancreas (CMS/HCC V24, CMS/HCC V28) Take 1 tablet (10 mg total) by mouth every 6 (six) hours if needed for nausea or vomiting. 60 tablet 3 Active Active Problems Problem Noted Date Diagnosed Date Drug therapy 07/01/2025 Chemotherapy-induced peripheral neuropathy ([facility] V24) 05/24/2025 Transaminitis 04/26/2025 Anxiety 04/26/2025 Chemotherapy-induced fatigue 04/26/2025 Left upper quadrant abdominal pain 03/08/2025 Family history of pancreatic cancer 02/01/2025 Lung cancer ([facility] V24, [facility] V28) Overview (02/01/2025): s/p L lobectomy in 2004, R wedge resection 2009 TIA (transient ischemic attack) 01/19/2025 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 ([facility] V24, [facility] V28) 12/22/2024 Cancer Staging:Pathologic stage from 01/07/2025:Stage IIA(pT3, pN0, cM0) - Signed by Carmen Felix MD on 02/02/2025 Malignant neoplasm of upper lobe of right lung (CMS/HCC V24, CMS/HCC V28) 07/01/2024 Malignant neoplasm of ascend ing colon (CMS/HCC V24, CMS/HCC V28) 02/21/2021 Asthma-COPD overlap syndrome ([facility]/HCC V24, [facility]/H CC V28) 11/06/2017 COPD (chronic obstructive pu lmonary disease) ([facility]/HCC V24, [facility]/HCC V28) 11/06/2017 Gastroesophageal reflux 11/06/2017 Hiatal hernia 11/06/2017 Hyperlipidemia 11/06/2017 Pulmonary nodules 11/06/2017 Adenocarcinoma of lung (CMS/HCC V24, CMS/HCC V28 ) 06/01/2009 Osteoporosis 02/16/2009 Encounters Date Type Department Care Team Description 08/06/2025 8:45 AM EST Lab Draw Station - [address] [phone] Malignant neoplasm of tail of pancreas (CMS/[facility] V24, [facility]/HCC V28); Drug therapy 08/03/2025 Telephone [facility] Infusion Center [address] [place] [phone] Nuria Muñoz RN 08/02/2025 9:48 AM EST - 08/02/2025 11:59 PM EST Hospital Encounter [facility] Infusion [facility] [address] [place] [phone] Subramonia-Iy erCarmen MD Malignant neoplasm of tail of pancreas ([facility]/HCC V24, [facility]/HCC V28) (Primary Dx) Discharge Disposition: Home or Self Care 08/02/2025 [facility] Infusion Center [address] [place] [phone] Nuria Muñoz RN 07/29/2025 2:15 PM EST - 07/29/2025 11:59 PM EST Hospital Encounter [facility] Xray [address] [place] [phone] Cough, unspecified type Discharge Disposition: Home or Self Care 07/29/2025 2:00 PM EST Office Visit [facility] Hematology Oncology [address] [place] [phone] Dianna Sommers PA Malignant neoplasm of tail of pancreas ([facility]/HCC V24, [facility]/HCC V28) (Primary Dx); Cough, unspecified type 07/29/2025 12:54 PM EST - 07/29/2025 11:59 PM EST Hospital Encounter [facility] Center [address] [place] [phone] Elzbietaramonia-Iy er, MD Carmen Malignant neoplasm of tail of pancreas ([facility]/HCC V24, CMS/HCC V28) (Primary Dx); Drug therapy Discharge Disposition: Home or Self Care 07/26/2025 [facility] Infusion Center [address] [place] [phone] Sunshine Kimbrough, SHAWN 07/26/2025 Telephone [facility] Infusion Center [address] [place] [phone] Jessica Arora RN 07/19/2025 3:15 PM EST Office Visit [facility] Hematology Oncology [address] [place] [phone] Elzbietaramonia-Iy Carmen subramanian MD Malignant neoplasm of tail of pancreas (CMS/HCC V24, CMS/HCC V28) (Primary Dx); Chemotherapy-induced peripheral neuropathy (CMS/HCC V24); Anxiety; Chemotherapy-induced fatigue; Family history of pancreatic cancer; Pulmonary nodules; Malignant neoplasm of upper lobe of right lung (CMS/HCC V24, CMS/HCC V28); Overlapping malignant neoplasm of colon (CMS/HCC V24, CMS/HCC V28) 07/19/2025 1:51 PM EST - 07/19/2025 11:59 PM EST Hospital Encounter [facility] Infusion Center [address] [place] [phone] Elzbietaramonia-Iy Carmen subramanian MD Malignant neoplasm of tail of pancreas (CMS/HCC V24, CMS/HCC V28) (Primary Dx); Malignant neoplasm of upper lobe of right lung (CMS/HCC V24, CMS/HCC V28) Discharge Disposition: Home or Self Care 07/15/2025 1:00 PM EDT - 07/15/2025 11:59 PM EDT Hospital Encounter [facility] Infusion Center [address] [place] [phone] Malignant neoplasm of ascending colon (CMS/HCC V24, CMS/HCC V28) (Primary Dx) Discharge Disposition: Home or Self Care 07/13/2025 8:15 AM EDT - 07/13/2025 11:59 PM EDT Hospital Encounter [facility] Infusion Center [address] [place] [phone] Elzbietaramonia-Iy Carmen subramanian MD Drug therapy (Primary Dx); Malignant neoplasm of tail of pancreas (CMS/HCC V24, CMS/HCC V28) Discharge Disposition: Home or Self Care 07/01/2025 11:51 AM EDT - 07/01/2025 11:59 PM EDT Hospital Encounter [facility] Infusion Center [address] [place] [phone] Adenocarcinoma of right lung ([facility]/HCC V24, CMS/HCC V28) (Primary Dx); Malignant neoplasm of ascending colon (CMS/HCC V24, CMS/HCC V28) Discharge Disposition: Home or Self Care 06/29/2025 8:27 AM EDT - 06/29/2025 11:59 PM EDT Hospital Encounter [facility] Infusion Center [address] [place] [phone] Subramonia-Iy erCarmen MD Malignant neoplasm of tail of pancreas (CMS/HCC V24, CMS/HCC V28) (Primary Dx) Discharge Disposition: Home or Self Care 06/21/2025 11:45 AM EDT Office Visit [facility] Hematology Oncology [address] [place] [phone] Subramonia-Iy erCarmen MD Adenocarcinoma of right lung ([facility]/HCC V24, CMS/HCC V28) (Primary Dx); Chemotherapy-induced peripheral neuropathy ([facility]/HCC V24); Malignant neoplasm of tail of pancreas (CMS/HCC V24, CMS/HCC V28); Age-related osteoporosis without current pathological fracture; Chemotherapy-induced fatigue; Anxiety 06/17/2025 11:54 AM EDT - 06/17/2025 11:59 PM EDT Hospital Encounter [facility] Infusion Center [address] [place] [phone] Elzbietaramonia-Iy erCarmen MD Malignant neoplasm of tail of pancreas ([facility]/HCC V24, [facility]/HCC V28) (Primary Dx) Discharge Disposition: Home or Self Care 06/15/2025 8:18 AM EDT - 06/15/2025 11:59 PM EDT Hospital Encounter [facility] Infusion Center [address] [place] [phone] Subramonia-Iy erCarmen MD Malignant neoplasm of tail of pancreas ([facility] V24, CMS/[facility] V28) (Primary Dx) Discharge Disposition: Home or Self Care 06/15/2025 Social Work [facility] Infusion Center [address] [place] [phone] Cy SalgueroGHAZALA 06/07/2025 Telephone [facility] Infusion Center [address] [place] [phone] Emelina Glover RN 05/27/2025 12:58 PM EDT - 05/27/2025 11:59 PM EDT Hospital Encounter [facility] Infusion [facility] [address] [place] [phone] Subramonia-Iy erCarmen MD Malignant neoplasm of tail of pancreas (CMS/HCC V24, CMS/HCC V28) (Primary Dx) Discharge Disposition: Home or Self Care 05/25/2025 8:19 AM EDT - 05/25/2025 11:59 PM EDT Hospital Encounter [facility] Infusion Center [address] [place] [phone] Elzbietaramonia-Iy erCarmen MD Malignant neoplasm of tail of pancreas (CMS/HCC V24, CMS/HCC V28) (Primary Dx); Adenocarcinoma of right lung (CMS/HCC V24, CMS/HCC V28); Malignant neoplasm of ascending colon (CMS/HCC V24, CMS/HCC V28) Discharge Disposition: Home or Self Care 05/24/2025 8:30 AM EDT Office Visit [facility] Hematology Oncology [address] [place] [phone] Elzbietaramonia-Iy erCarmen MD Malignant neoplasm of tail of pancreas (CMS/HCC V24, CMS/HCC V28) (Primary Dx); Transaminitis; Anxiety; Chemotherapy-induced fatigue; Adenocarcinoma of right lung (CMS/HCC V24, CMS/HCC V28); Hiatal hernia; Chemotherapy-induced peripheral neuropathy ([facility]/HCC V24) 05/19/2025 9:45 AM EDT Office Visit General Surgery - [place] [address] [phone] Diogenes Medrano MD Malignant neoplasm of body of pancreas (CMS/HCC V24, CMS/HCC V28) (Primary Dx) 05/13/2025 11:48 AM EDT - 05/13/2025 11:59 PM EDT Hospital Encounter [address] [phone] Thiago-Iy Carmen subramanian MD Malignant neoplasm of tail of pancreas ([facility] V24, [facility] V28) (Primary Dx); Adenocarcinoma of right lung ([facility] V24, [facility] V28) Discharge Disposition: Home or Self Care 05/11/2025 8:30 AM EDT - 05/11/2025 11:59 PM EDT Hospital Encounter [facility] Infusion [address] [phone] Sevenonia-Iy Carmen subramanian MD Malignant neoplasm of tail of pancreas ([facility] V24, [facility] V28) (Primary Dx) Discharge Disposition: Home or Self Care 05/10/2025 3:15 PM EDT Office Visit [facility] Hematology Oncology [address] [place] [phone] Thiago-Iy Carmen subramanian MD Malignant neoplasm of tail of pancreas ([facility] V24, [facility] V28) (Primary Dx) 05/10/[address] [phone] Arminda Glover RN from Last 3 Months Immunizations Immunization Administration [...] Comments Asthma 11/06/2017 DX:Asthma Asthma-COPD overlap syndrome ([facility] V24, [facility] V28) 11/06/2017 DX:Asthma-COPD overlap syndr ome (HCC) COPD (chronic obstructive pu lmonary disease) ([facility] V24, [facility] V28) 11/06/2017 DX:COPD (chronic o bstructive pulmonary disease) ([facility]) Gastroesophageal reflux 11/06/2017 DX:Gastr oesophageal reflux Hiatal hernia 11/06/2017 DX:Hiatal hernia History of lung cancer 11/06/2017 DX:Histor y of lung cancer; COMMENT: X2, s/p resection Hyperlipidemia 11/06/2017 DX:Hyperlipidemi a Pulmonary nodules 11/06/2017 DX:Pulmonary n odules Lung cancer ([facility] V24, [facility] V28) DX:Lung cancer (HCC) COPD (chronic obstructive pu lmonary disease) ([facility] V24, [facility] V28) DX:COPD (chronic o bstructive pulmonary disease) (HCC) GERD (gastroesophageal reflux disease) DX:GERD (gastroesophageal reflux disease) Colon cancer ([facility] V24, [facility] V28) DX:Colon cancer (HCC) Diabetes mellitus ([facility] V 24, [facility] V28) DX:Diabetes mellitus ([facility]) MS, old Heart disease Shortness of breath Liver [...] Info) Description 08/09/2025 8:30 AM EST Appointment [facility] Infusion Center [address] [phone] 08/16/2025 10:45 AM EST Office Visit [facility] Hematology Oncology [address] [place] [phone] Thiago-Carmen Ray MD [address] [place] [phone] Health Maintenance Due Date Last Done Comments [...] 2025 10/22/2023, 06/27/2022, 02/06/2022, Additional history exists Diabetes: Blood Sugar Control Test (HGBA1C) 07/22/2025 01/19/2025 Falls Risk Assessment 08/02/2026 08/02/2025 Diabetes: Annual GFR (Glomerular Filtration Rate) 08/06/2026 08/06/2025, 08/02/2025, 07/29/2025, Additional history exists Hypertension/CHF/CAD Annual BMP Blood Test 08/06/2026 08/06/2025, 08/02/2025, 07/29/2025, Additional history exists Cholesterol Screening (Lipid Panel) 01/19/2030 01/19/2025, 03/09/2024 Colorectal Cancer Screening: Colonoscopy 12/17/2034 12/17/2024 RSV Immunization Adult Patients Completed 07/16/2023 Meningococcal B Vaccine Aged Out 01/08/2025 No l onger eligible based on patient's age to complete this topic Pneumococcal Vaccine: 50+ Years Completed 01/08/2025, 07/01/2019, 07/14/2018 Influenza Vaccine Completed 07/22/2025, , 07/17/2023, Additional history exists HIB Vaccines Aged Out [...] this topic Medical Devices Implanted Type Area Airplane Gastank Liner Assembler Device Identifier Shelf Expiration Date Model / Serial / Lot Port Pwr Slim Poly 6f Sandra Inte Attach - [id number] Implanted:Qty: 1 on 03/23/2025 by Blake Beaulieu MD at [facility]/Yaneth pheral Catheters and Ports Right: Chest Wall CR [employer]ARD [employer] [id number] 11/13/2025 [id number] / / [id number] Procedures Procedure Name Priority Date/Time Associated Diagnosis [...] CMS/HCC V28) CBC WITH AUTO DIFFERENTIAL Routine 08/02/2025 10:23 AM EST Malignant neoplasm of tail of pancreas (CMS/HCC V24, CMS/HCC V28) COMPREHENSIVE METABOLIC PANEL Routine 08/02/2025 10:23 AM EST Malignant neoplasm of tail of pancreas (CMS/HCC V24, CMS/HCC V28) CBC AND DIFFERENTIAL Routine 08/02/2025 10:23 AM EST Malignant neoplasm of tail of pancreas (CMS/HCC V24, CMS/HCC V28) XR CHEST 2 VIEWS STAT 07/29/2025 2:27 PM EST Cough, unspecified type MANUAL DIFFERENTIAL - SYSMEX WAM Routine 07/29/2025 1:18 PM EST Malignant neoplasm of tail of pancreas (CMS/HCC V24, CMS/HCC V28) Drug therapy CBC WITH AUTO DIFFERENTIAL Routine 07/29/2025 1:18 PM EST Malignant neoplasm of tail of pancreas (CMS/HCC V24, CMS/HCC V28) Drug therapy COMPREHENSIVE METABOLIC PANEL Routine 07/29/2025 1:18 PM EST Malignant neoplasm of tail of pancreas (CMS/HCC V24, CMS/HCC V28) Drug therapy CBC AND DIFFERENTIAL Routine 07/29/2025 1:18 PM EST Malignant neoplasm of tail of pancreas (CMS/HCC V24, CMS/HCC V28) Drug therapy CBC WITH AUTO DIFFERENTIAL STAT 07/19/2025 2:23 [...] Maintenance Results * (ABNORMAL) CBC auto differential (08/06/2025 8:41 AM EST) Only the most recent of11 resultswithin the time period is included. [facility] WBC 6.4 4.8 - 10.8 K/mcL LAB HEMETOLOGY METHOD 08/06/2025 12:46 PM [facility] RBC 4.00 3.80 - 4.80 M/mcL LAB HEMETOLOGY METHOD 08/06/2025 12:46 PM [facility] Hemoglobin 12.8 11.5 - 16.0 g/dL LAB HEMETOLOGY METHOD 08/06/2025 12:46 PM [facility] Hematocrit 39.6 35.0 - 47.0 % LAB HEMETOLOGY METHOD 08/06/2025 12:46 PM [facility] MCV 99.2(H) 79.0 - 98.0 FL LAB HEMETOLOGY METHOD 08/06/2025 12:46 PM [facility] MCH 32.1(H) 27.0 - 32.0 pcg LAB HEMETOLOGY METHOD 08/06/2025 12:46 PM [facility] MCHC 32.3 32.0 - 37.0 g/dL LAB HEMETOLOGY METHOD 08/06/2025 12:46 PM [facility] RDW 15.0 11.0 - 15.0 % LAB HEMETOLOGY METHOD 08/06/2025 12:46 PM [facility] Platelets 532(H) 130 - 400 K/mcL LAB HEMETOLOGY METHOD 08/06/2025 12:46 PM [facility] MPV 10.0 7.0 - 11.0 FL LAB HEMETOLOGY METHOD 08/06/2025 12:46 PM [facility] NRBC 1.6(H) <1.0 % LAB HEMETOLOGY METHOD 08/06/2025 12:46 PM [facility] NRBC Absolute 0.10(H) <0.10 K/mcL LAB HEMETOLOGY METHOD 08/06/2025 12:46 PM [facility] Neutrophils Relative 48.1 % LAB HEMETOLOGY METHOD 08/06/2025 12:46 PM [facility] Lymphocytes Relative 27.2 % LAB HEMETOLOGY METHOD 08/06/2025 12:46 PM [facility] Monocytes Relative 18.0 % LAB HEMETOLOGY METHOD 08/06/2025 12:46 PM [facility] Eosinophils Relative 5.2 % LAB HEMETOLOGY METHOD 08/06/2025 12:46 PM [facility] Basophils Relative 0.9 % LAB HEMETOLOGY METHOD 08/06/2025 12:46 PM [facility] Immature Granulocytes Relative 0.6 % LAB HEMETOLOGY METHOD 08/06/2025 12:46 PM [facility] Neutrophils Absolute 3.08 1.50 - 7.00 K/mcL LAB HEMETOLOGY METHOD 08/06/2025 12:46 PM [facility] Lymphocytes Absolute 1.74 1.00 - 5.00 K/mcL LAB HEMETOLOGY METHOD 08/06/2025 12:46 PM [facility] Monocytes Absolute 1.15(H) 0.20 - 1.00 K/mcL LAB HEMETOLOGY METHOD 08/06/2025 12:46 PM [facility] Eosinophils Absolute 0.33 0.00 - 0.50 K/mcL LAB HEMETOLOGY METHOD 08/06/2025 12:46 PM [facility] Basophils Absolute 0.06 0.00 - 0.20 K/mcL LAB HEMETOLOGY METHOD 08/06/2025 12:46 PM [facility] Immature Granulocytes Absolute 0.04(H) 0.00 - 0.03 K/mcL LAB HEMETOLOGY METHOD 08/06/2025 12:46 PM [facility] Blood Venous blood specimen / Unknown Venipuncture / Unknown 08/06/2025 8:41 AM EST 08/06/2025 11:24 AM EST Carmen Felix MD LAB BLOOD ORDERABLE S Final Result [facility] [address] [place] [address], * (ABNORMAL) Comprehensive metabolic panel (08/06/2025 8:41 AM EST) Only the most recent of11 resultswithin the time period is included. Sodium 141 133 - 145 mmol/L 08/06/2025 12:09 PM [facility] Potassium 4.6 3.5 - 5.5 mmol/L 08/06/2025 12:09 PM [facility] Chloride 103 96 - 110 mmol/L 08/06/2025 12:09 PM [facility] CO2 28 21 - 32 mmol/L 08/06/2025 12:09 PM [facility] Anion Gap 10 3 - 11 08/06/2025 12:09 PM [facility] Glucose 301(H) 70 - 100 mg/dL 08/06/2025 12:09 PM [facility] BUN 24 5 - 25 mg/dL 08/06/2025 12:09 PM [facility] Creatinine 1.03 0.50 - 1.10 mg/dL 08/06/2025 12:09 PM [facility] eGFR 57(L) >=60 mL/min/1. 73m2 08/06/2025 12:09 PM [facility] Comment:Calculation based on the Chronic Kidney Disease Epidemiology Collaboration (CKD-EPI) equation refit without adjustment for race. BUN/Creatinine Ratio 23.3 08/06/2025 12:09 PM [facility] Calcium 9.0 8.5 - 10.5 mg/dL 08/06/2025 12:09 PM [facility] AST (SGOT) 115(H) 10 - 42 unit/L 08/06/2025 12:09 PM [facility] ALT (SGPT) 130(H) 10 - 60 unit/L 08/06/2025 12:09 PM [facility] Alkaline Phosphatase 76 42 - 121 unit/L 08/06/2025 12:09 PM [facility] Total Protein 5.7(L) 6.0 - 8.0 g/dL 08/06/2025 12:09 PM [facility] Albumin 3.8 3.2 - 5.0 g/dL 08/06/2025 12:09 PM [facility] Total Bilirubin 0.9 0.0 - 1.4 mg/dL 08/06/2025 12:09 PM [facility] Blood Venous blood specimen / Unknown Venipuncture / Unknown 08/06/2025 8:41 AM EST 08/06/2025 11:23 AM EST us Subramony Isidro STORY LAB BLOOD ORDERABLE S Final Result [facility] [address] [place] [address], * XR Chest 2 Views (07/29/2025 2:27 PM EST) Anatomical Region Laterality Modality Body Radiographic Kaelyn ging 07/29/2025 2:56 PM EST Impressions 07/29/2025 2:57 PM EST FINDINGS/IMPRESSION: Coarse reticular markings throughout the lungs with postsurgical changes in the right lung.. Trace left pleural effusion. No consolidation. Normal heart size without overt pulmonary edema. Right chest wall port. -------- FINAL REPORT -------- Dictated By: Lluvia Minor Dictated Date: 07/29/2025 14:56 ET Assigned Physician: Lluvia Minor Reviewed and Electronically Signed By: Lluvia Minor Signed Date: 07/29/2025 14:57 ET Workstation ID: [id number] Transcribed By: Self Edit Transcribed Date: 07/29/2025 14:56 ET Narrative 07/29/2025 2:57 PM EST XR CHEST 2 VIEWS INDICATION: cough TECHNIQUE: XR CHEST 2 VIEWS COMPARISON: None Procedure Note Lluvia Minor MD - 07/29/2025 XR CHEST 2 VIEWS INDICATION: cough TECHNIQUE: XR CHEST 2 VIEWS COMPARISON: None IMPRESSION: FINDINGS/IMPRESSION: Coarse reticular markings throughout the lungs withpostsurgical changes in the right lung.. Trace left pleural effusion. Noconsolidation. Normal heart size without overt pulmonary edema. Rightchest wall port. -------- FINAL REPORT -------- Dictated By: Lluvia Minor Dictated Date: 07/29/2025 14:56 ET Assigned Physician: Lluvia Minor Reviewed and Electronically Signed By: Lluvia Minor Signed Date: 07/29/2025 14:57 ET Workstation ID: [id number] Transcribed By: Self Edit Transcribed Date: 07/29/2025 14:56 ET Dianna ROSAS IMG XR PROCEDURES Final Resul t * (ABNORMAL) Manual differential (07/29/2025 1:18 PM EST) Only the most recent of3 resultswithin the time period is included. Neutrophils % 53.0 % LAB HEMETOLOGY METHOD 07/29/2025 2:22 PM EST [facility] Lymphocytes % 30.0 % LAB HEMETOLOGY METHOD 07/29/2025 2:22 PM EST [facility] Monocytes % 13.0 % LAB HEMETOLOGY METHOD 07/29/2025 2:22 PM EST [facility] Eosinophils % 3.0 % LAB HEMETOLOGY METHOD 07/29/2025 2:22 PM EST [facility] Basophils % 1.0 % LAB HEMETOLOGY METHOD 07/29/2025 2:22 PM [facility] Neutrophils Absolute Manual 2.12 1.50 - 7.00 K/mcL LAB HEMETOLOGY METHOD 07/29/2025 2:22 PM [facility] Lymphocytes Absolute 1.20 1.00 - 5.00 K/mcL LAB HEMETOLOGY METHOD 07/29/2025 2:22 PM [facility] Monocytes Absolute Manual 0.52 0.20 - 1.00 K/mcL LAB HEMETOLOGY METHOD 07/29/2025 2:22 PM [facility] Eosinophils Absolute Manual 0.12 0.00 - 0.50 K/mcL LAB HEMETOLOGY METHOD 07/29/2025 2:22 PM [facility] Basophils Absolute Manual 0.04 0.00 - 0.20 K/mcL LAB HEMETOLOGY METHOD 07/29/2025 2:22 PM [facility] Rbc Morphology Present(A ) Consistent with indices, Normal for LAB HEMETOLOGY METHOD 07/29/2025 2:22 PM [facility] Platelet Morphology - WAM Normal Normal LAB HEMETOLOGY METHOD 07/29/2025 2:22 PM [facility] Ovalocytes Present 5 - 10%(A) (none) LAB HEMETOLOGY METHOD 07/29/2025 2:22 PM [facility] Schistocytes Present 1+(A) (none) 07/29/2025 2:22 PM [facility] Blood Venous blood specimen / Unknown Venipuncture / Unknown 07/29/2025 1:18 PM EST 07/29/2025 1:32 PM EST us Subramony Isidro STORY LAB BLOOD ORDERABLE S Final Result [facility] [address] [place] [address], * (ABNORMAL) Cancer antigen 19-9 (06/21/2025 11:03 AM EDT) Only the most recent of2 resultswithin the time period is included. CA 19-9 80.2(H) <=35 U/mL 06/23/2025 2:12 PM EDT [facility] Comment: The Siemens Advia Centaur CA199 Chemiluminescent Immunoassay is used. Results obtained with different assay methods or kits cannot be used interchangeably. Results cannot be interpreted as absolute evidence of the presence or absence of malignant disease. Test performed at [facility], [address] , [place] [address] Sangita Sharma MD, PhD - Woods Manager Blood Venous blood specimen / Unknown Venipuncture / Unknown 06/21/2025 11:03 AM EDT 06/21/2025 11:40 AM EDT Carmen Felix MD LAB BLOOD ORDERABLE S Final Result [facility] [address] [place] [address] * (ABNORMAL) Lipid panel with reflex to direct LDL (01/19/2025 3:51 AM EDT) Cholesterol 126 0 - 200 mg/dL LAB CHEMISTRY METHOD 01/19/2025 3:36 PM EDT [facility] Triglycerides 153(H) 0 - 150 mg/dL LAB CHEMISTRY METHOD 01/19/2025 3:36 PM EDT [facility] HDL 50 >=40 mg/dL LAB CHEMISTRY METHOD 01/19/2025 3:36 PM EDT [facility] LDL Calculated 45 0 - 100 mg/dL LAB CHEMISTRY METHOD 01/19/2025 3:36 PM EDT [facility] VLDL Cholesterol Russell 30.6 mg/dL LAB CHEMISTRY METHOD 01/19/2025 3:36 PM EDT [facility] Non HDL Chol. (LDL+VLDL) 76 <145 mg/dL LAB CHEMISTRY METHOD 01/19/2025 3:36 PM EDT [facility] Chol/HDL Ratio 2.5 0.0 - 4.4 LAB CHEMISTRY METHOD 01/19/2025 3:36 PM EDT [facility] Blood Venous blood specimen / Unknown Venipuncture / Unknown 01/19/2025 3:51 AM EDT 01/19/2025 4:08 AM EDT us Annabelle ROSAS LAB BLOOD ORDERABLES Final Resul t Performing Organization Address [facility]/ZIP Co de Phone Number [facility] [address] [place] [address], [place] [phone] * (ABNORMAL) Hemoglobin A1c (01/19/2025 3:51 AM EDT) Hemoglobin A1C 8.9(H) <6.5 % LAB CHEMISTRY METHOD 01/19/2025 1:38 PM EDT [facility] Mean Bld Glu Estim. 209 mg/dL LAB CHEMISTRY METHOD 01/19/2025 1:38 PM EDT [facility] Blood Venous blood specimen / Unknown Venipuncture / Unknown 01/19/2025 3:51 AM EDT 01/19/2025 4:08 AM EDT us Annabelle ROSAS LAB BLOOD ORDERABLES Final Resul t Performing Organization Address City/[facility]/ZIP Co de Phone Number [facility] [address] [place] [address], [place] [phone] * COLONOSCOPY Anesthesia - MAC; [facility] ENDOSCOPY (12/17/2024 10:44 AM EDT) Anatomical Region Laterality Modality Endoscopy 12/17/2024 10:2 8 AM EDT Impressions 12/17/2024 10:46 AM EDT - Patent [id number]-bd-[id number] ileo-colonic anastomosis, characterized by healthy appearing mucosa. - Diverticulosis in the sigmoid colon. - Internal hemorrhoids. - The examination was otherwise normal. - No specimens collected. Recommendation: - Discharge patient to home. - Repeat colonoscopy in 5 years for surveillance. Narrative 12/17/2024 10:46 AM EDT [facility] Patient Name: Corin Alvarenga [...] verified by the physician, the nurse, the medical laboratory assistant and the sonar technician in the pre-procedure area in the [...] normal. There was evidence of a prior whkj-nm-bdlz ileo-colonic anastomosis in the ascending colon. This [...] neoplasm of large intestine CPT copyright 2020 [employer]. All rights reserved. The codes documented in this report are preliminary and upon welfare service aide review may be revised to meet current compliance requirements. Valente Camarena MD 12/17/2024 10:46:21 AM This report has been signed electronically.Valente Camarena MD Number of Addenda: 0 Note Initiated On: 12/17/2024 10:28 AM Scope Withdrawal Time: 0 hours 6 minutes 55 seconds Scope In: 10:35:31 AM Scope Out: 10:45:39 AM Endoscopy Department at [facility] - [address] [place] [id number] Procedure Note Valente Camarena MD - 12/17/2024 [facility] Patient Name: Corin Alvarenga [...] the physician, the nurse, theanesthetist and the sonar technician in the pre-procedure area in the [...] normal. There was evidence of a prior lmgg-mu-zxjk ileo-colonic anastomosis in the ascending colon.This was [...] malignantneoplasm of large intestine CPT copyright 2020 [employer]. All rights reserved. The codes documented in this report are preliminary and upon welfare service aide reviewmay be revised to meet current compliance requirements. Valente Camarena MD 12/17/2024 10:46:21 AM This report has been signed electronically.Valente Camarena MD Number of Addenda: 0 Note Initiated On: 12/17/2024 10:28 AM Scope Withdrawal Time: 0 hours 6 minutes 55 seconds Scope In: 10:35:31 AM Scope Out: 10:45:39 AM Endoscopy Department at [facility] - [address] [place] [id number] IMPRESSION: - Patent mvet-tn-ivre ileo-colonic anastomosis, characterized by healthy appearing mucosa. [...] currently active code status orders. Care Teams Linux Developer Relationship Specialty Start Date End Date Jung Carrnaza MD [address] [place] [address] [address] [place], [place] PCP - General Internal Medicine 12/08/18
--- OUTSIDE RECORDS SUMMARY | 2025-08-06 13:27 | XMS_ITS | Encounter Summary ---
Author Organization [facility] Address [address] [facility] [address] [place] [address] Phone Care Team Providers Care Electrical Construction Project Manager Name Role Phone Hong Maddox MD Unavailable [phone] Pravin Landis MD Unavailable Johana Amador MD Unavailable [phone] Kym Carranza MD Primary Care Provide r Carmen Felix MD Unavailable [phone] Encounter Details Date Type Department Care Team (Late st Contact Info) Description 01/04/2022 Procedure Pass [facility] Endoscopy Department [address] [place] [id number] Social History Tobacco Use Types Packs/Day Years [...] Description 12/28/2025 1:20 PM EDT Office Visit [facility] [address] [place] [address] [address]rd Floor, [address] [place] [address] Prince Freitas MD [address] [facility], [address] [place] [address] [email or web address] documented as of this encounter Visit Diagnoses Not on filedocumented in this encounter Care Teams Electrical Construction Project Manager Relationship Specialty Start Date End Date Kym Carranza MD [address] [place] [address] 1 [place] [address] PCP - General Internal Medicine 12/22/21 Hong Maddox MD [address] [address] [email or web address] LMR Provider 07/04/17 Pravin Landis MD [address] [place] [id number] [email or web address] Primary Oncologist Medical Oncology 02/08/21 Johana Amador MD [address] [address] Referring Physician Gastroenterology 03/27/21 Carmen Felix MD [address] [place] [address] Ramos Medical Oncology 03/11/24 documented as of this encounter Additional Source Comments The information contained in this document represents components of the legal health record. It is not the complete legal health record.[facility]
--- OUTSIDE RECORDS SUMMARY | 2025-08-06 13:27 | XMS_ITS ---
Author Organization [facility] Address [address] [place] [address] Phone Care Team Providers Care Grill Cook Name Role Phone Jung Carranza MD Primary Care Provider [phone] Active Problems Problem Noted Date Diagnosed Date Drug therapy 07/01/2025 Chemotherapy-induced peripheral neuropathy ([facility] V24) 05/24/2025 Transaminitis 04/26/2025 Anxiety 04/26/2025 Chemotherapy-induced fatigue 04/26/2025 Left upper quadrant abdominal pain 03/08/2025 Family history of pancreatic cancer 02/01/2025 Lung cancer ([facility] V24, [facility] V28) Overview (02/01/2025): s/p L lobectomy in 2004, R wedge resection 2009 TIA (transient ischemic attack) 01/19/2025 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 ([facility] V24, [facility] V28) 12/22/2024 Cancer Staging:Pathologic stage from 01/07/2025:Stage IIA(pT3, pN0, cM0) - Signed by Carmen Felix MD on 02/02/2025 Malignant neoplasm of upper lobe of right lung ([facility]CC V24, [facility] V28) 07/01/2024 Malignant neoplasm of ascend ing colon ([facility]CC V24, [facility]/HCC V28) 02/21/2021 Asthma-COPD overlap syndrome ([facility] V24, [facility]/ [facility] V28) 11/06/2017 COPD (chronic obstructive pu lmonary disease) ([facility] V24, [facility] V28) 11/06/2017 Gastroesophageal reflux 11/06/2017 Hiatal hernia 11/06/2017 Hyperlipidemia 11/06/2017 Pulmonary nodules 11/06/2017 Adenocarcinoma of lung ([facility] V24, [facility] V28 ) 06/01/2009 Osteoporosis 02/16/2009 Current Treatment and Therapy Plans FOLFIRINOX ( Fluorouracil Continuous Infusion / Leucovorin / Irinotecan / OXALIplatin )* Plan Start Date:04/04/2025 Plan Provider:Carmen Felix MD Linked Problems 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 ([facility] V24, [facility] V28)Drug therapy Treatment Medications Current Day (Day [...] 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 ([facility] V24, [facility] V28) Treatment Medications No medications scheduled. Past Treatment and Therapy Plans No past plan information found. Lifetime Dose Tracking * Chemical Lifetime Dose Automatic Entry Manual Entr y Fluoro Time 1 minutes 1 minutes 0 minutes Air Kerma 7 mGy 7 mGy 0 mGy
--- OUTSIDE RECORDS SUMMARY | 2025-08-06 13:28 | XMS_ITS | Encounter Summary ---
Author Organization [facility] Address [address] [facility] [address] [facility] [address] [place] [address] Phone Care Team Providers Care Fern Picker Name Role Phone Hong Maddox MD Unavailable [phone] Pravin Landis MD Unavailable [phone] Johana Amador MD Unavailable [phone] Kym Carranza MD Primary Care Provide r Carmen Felix MD Unavailable [phone] Encounter Details Date Type Department Care Team (Late st Contact Info) Description 05/28/2023 Procedure [facility] [place] [address] [address] Social History Tobacco Use Types [...] Description 12/28/2025 1:20 PM EDT Office Visit [facility] [address] [place] [address] 3rd Floor, [address] [place] [address] Prince Freitas MD [address] [place] [address] [email or web address] documented as of this encounter Visit Diagnoses Not on filedocumented in this encounter Care Teams Fern Picker Relationship Specialty Start Date End Date Kym Carranza MD [address] [place] [address] PCP - General Internal Medicine 12/22/21 Hong Maddox MD [address] [address] [email or web address] Historical LMR Provider 07/04/17 Pravin Landis MD [address] [place] [address] [email or web address] Primary Oncologist Medical Oncology 02/08/21 Johana Amador MD [address] [address] Referring Physician Gastroenterology 03/27/21 Carmen Felix MD [address] [place] [phone] [email or web address] Medical Oncology 03/11/24 documented as of this encounter Additional Source Comments The information contained in this document represents components of the legal health record. It is not the complete legal health record.[facility]
--- OUTSIDE RECORDS SUMMARY | 2025-08-06 13:28 | XMS_ITS | Encounter Summary ---
Author Organization [facility] Address [address] [place] [address] Phone Care Team Providers Care Signaling Project Engineer Name Role Phone Evangelist Gabriel MD Unavailable [phone] Vignesh Farias MD Unavailable [phone] Dixon Quiñones NP Unavailable [phone] Hong Maddox MD Unavailable [phone] Kym Carranza MD Primary Care Provide r Self-Referred, Patient Unavailable Unavailab Pravin Leung MD Unavailable [phone] Johana Amador MD Unavailable [phone] Johana Amador MD Primary Care Provid er Kym Carranza MD Primary Care Provide r Carmen Felix MD Unavailable [phone] Encounter Details Date Type Department Care Team (Late st Contact Info) Description 02/10/2021 Ancillary Orders [facility],Outside Imaging [address] [place], [place] [id number] System, Provider Not In, [facility] [address] [address] Social History Tobacco Use Types Packs/Day Years [...] Description 12/28/2025 1:20 PM EDT Office Visit [facility] [address] [place] [address] 3rd Floor, [address] [place] [address] Prince Freitas MD [address], [address] [place] [address] [email or web address] documented as of this encounter Results * CT Abdomen/Pelvis Outside (No Interpretation) (12/02/2020 12:00 AM EDT) Narrative SYSTEMGENERATED, DOCUMENTATION - 02/10/2021 10:32 AM EDT This study is for PACS storage only and not for interpretation. us Provider Not In System PhD IMG OUTSIDE IMAGING W /OUT INTERPRETATION Final Result documented in this encounter Visit Diagnoses Not on filedocumented in this encounter Care Teams Signaling Project Engineer Relationship Specialty Start Date End Date Kym Carranza MD [address] [place] [address] 1 [place] [address] PCP - General Internal Medicine 11/28/20 05/04/21 Johana Amador MD [address] [place] [address] PCP - General Gastroenterology 05/05/21 12/21/21 Kym Carranza MD [address] [place] [address] 1 [place] [address] PCP - General Internal Medicine 12/22/21 Evangelist Gabriel MD [address], [address] [address] [email or web address] Historical LMR Provider 07/04/17 09/23/21 Vignesh Farias MD [address] [place] [address] [email or web address] Historical LMR Provider 07/04/17 09/23/21 Dixon Quiñones NP [address] [place] [address] [address] Historical LMR Provider 07/04/17 2 Hong Maddox MD [address] [place] [address] [email or web address] Historical LMR Provider 07/04/17 Self-Referred, Patient Referring Physician 11/28/20 Pravin Landis MD [address] [place] [address] [email or web address] Primary Oncologist Medical Oncology 02/08/21 Johana Amador MD [address] [place] [address] Referring Physician Gastroenterology 03/27/21 Carmen Felix MD [address] [place] [phone] Ramos [email or web address] Medical Oncology 03/11/24 documented as of this encounter Additional Source Comments The information contained in this document represents components of the legal health record. It is not the complete legal health record.[facility]
--- OUTSIDE RECORDS SUMMARY | 2025-08-06 13:28 | XMS_ITS | Encounter Summary ---
Author Organization [facility] Address [address] [place] [address] Phone Care Team Providers Care De Icer Kit Assembler Name Role Phone Evangelist Gabriel MD Unavailable [phone] Vignesh Farias MD Unavailable [phone] Dixon Quiñones NP Unavailable [phone] Hong Maddox MD Unavailable [phone] Kym Carranza MD Primary Care Provide r Self-Referred, Patient Unavailable Unavailab Pravin Leung MD Unavailable [phone] Johana Amador MD Unavailable [phone] Johana Amador MD Primary Care Provid er Kym Carranza MD Primary Care Provide r Carmen Felix MD Unavailable [phone] Encounter Details Date Type Department Care Team (Late st Contact Info) Description 02/06/2021 Procedure Pass [facility], [address] [id number] Social History Tobacco Use Types Packs/Day Years [...] Description 12/28/2025 1:20 PM EDT Office Visit [facility] [address] [place] [address] 3rd [facility], [address] [place] [address] Prince Freitas MD [address] [place] [address] [email or web address] documented as of this encounter Visit Diagnoses Not on filedocumented in this encounter Care Teams De Icer Kit Assembler Relationship Specialty Start Date End Date Kym Carranza MD [address] [place] [address] PCP - General Internal Medicine 11/28/20 05/04/21 Johana Amador MD [address] [place] [address] PCP - General Gastroenterology 05/05/21 12/21/21 Kym Carranza MD [address] [place] [address] PCP - General Internal Medicine 12/22/21 Evangelist Gabriel MD [address] [place] [address] [email or web address] Historical LMR Provider 07/04/17 09/23/21 Vignesh Farias MD [address] [place] [address], [address] [place] [address] [email or web address] Historical LMR Provider 07/04/17 09/23/21 Dixon Quiñones NP [address] [place] [address] [address] [place] [address] Historical LMR Provider 07/04/17 2 Hong Maddox MD [address] [place] [address] [email or web address] Historical LMR Provider 07/04/17 Self-Referred, Patient Referring Physician 11/28/20 Pravin Landis MD [address] [place] [address] [email or web address] Primary Oncologist Medical Oncology 02/08/21 Johana Amador MD [address] [place] [address] Referring Physician Gastroenterology 03/27/21 Carmen Felix MD [address] [place] [phone] Ramos Medical Oncology 03/11/24 documented as of this encounter Additional Source Comments The information contained in this document represents components of the legal health record. It is not the complete legal health record.[facility]
--- OUTSIDE RECORDS SUMMARY | 2025-08-06 13:28 | XMS_ITS | Encounter Summary ---
Author Organization [facility] Address [address] [facility] [address] [place] [address] Phone Care Team Providers Care Pipe Fitter Name Role Phone Hong Maddox MD Unavailable [phone] Pravin Landis MD Unavailable [phone] Johana Amador MD Unavailable [phone] Kym Carranza MD Primary Care Provide r Carmen Felix MD Unavailable [phone] Encounter Details Date Type Department Care Team (Late st Contact Info) Description 05/28/2023 Procedure Pass [facility] [place] [place] [address] [address] Social History Tobacco Use Types [...] Description 12/28/2025 1:20 PM EDT Office Visit [facility] [address] [place] [address] 3rd Floor, [address] [place] [address] Prince Freitas MD [address] [place] [address] [email or web address] documented as of this encounter Visit Diagnoses Not on filedocumented in this encounter Care Teams Pipe Fitter Relationship Specialty Start Date End Date Kym Carranza MD [address] [place] [address] PCP - General Internal Medicine 12/22/21 Hong Maddox MD [address] [address] [email or web address] Historical LMR Provider 07/04/17 Pravin Landis MD [address] [place] [address] [email or web address] Primary Oncologist Medical Oncology 02/08/21 Johana Amador MD [address] [address] Referring Physician Gastroenterology 03/27/21 Carmen Felix MD 271 [place] [phone] Ramos [email or web address] Medical Oncology 03/11/24 documented as of this encounter Additional Source Comments The information contained in this document represents components of the legal health record. It is not the complete legal health record.[facility]
--- OUTSIDE RECORDS SUMMARY | 2025-08-06 13:28 | XMS_ITS | Encounter Summary ---
Author Organization [facility] Address [address] [place] [address] Phone Care Team Providers Care Coding Analyst Name Role Phone Evangelist Gabriel MD Unavailable [phone] Vignesh Farias MD Unavailable [phone] Dixon Quiñones NP Unavailable [phone] Hong Maddox MD Unavailable [phone] Kym Carranza MD Primary Care Provide r Self-Referred, Patient Unavailable Unavailab Pravin Lenug MD Unavailable [phone] Johana Amador MD Unavailable [phone] Johana Amador MD Primary Care Provid er Kym Carranza MD Primary Care Provide r Carmen Felix MD Unavailable [phone] Encounter Details Date Type Department Care Team (Late st Contact Info) Description 02/21/2021 Procedure Pass [facility], Ct Scan - [address] [id number] Social History Tobacco Use Types Packs/Day Years [...] Description 12/28/2025 1:20 PM EDT Office Visit [facility] [address] [place] [address] 3rd Floor, [address] [place] [address] Prince Freitas MD [address] [place] [address] [email or web address] documented as of this encounter Visit Diagnoses Not on filedocumented in this encounter Care Teams Coding Analyst Relationship Specialty Start Date End Date Kym Carranza MD [address] [place] [address] PCP - General Internal Medicine 11/28/20 05/04/21 Johana Amador MD [address] [place] [address] PCP - General Gastroenterology 05/05/21 12/21/21 Kym Carranza MD [address] [place] [address] PCP - General Internal Medicine 12/22/21 Evangelist Gabriel MD [address] [place] [address] Historical LMR Provider 07/04/17 09/23/21 Vignesh Farias MD [address] [place] [address] [email or web address] Historical LMR Provider 07/04/17 09/23/21 Dixon Quiñones NP [address] [place] [address] [phone] Historical LMR Provider 07/04/17 2 Hong Maddox MD [address] [address] [email or web address] Historical LMR Provider 07/04/17 Self-Referred, Patient Referring Physician 11/28/20 Pravin Landis MD [address] [place] [address] [email or web address] Primary Oncologist Medical Oncology 02/08/21 Johana Amador MD [address] [address] Referring Physician Gastroenterology 03/27/21 Carmen Felix MD 271 [place] [phone] Ramos [email or web address] Medical Oncology 03/11/24 documented as of this encounter Additional Source Comments The information contained in this document represents components of the legal health record. It is not the complete legal health record.[facility]
--- OUTSIDE RECORDS SUMMARY | 2025-08-06 13:28 | XMS_ITS | Encounter Summary ---
Author Organization [facility] Address [address] [place] [address] [place] [address] Phone Care Team Providers Care Door Maker Name Role Phone Hong Maddox MD Unavailable [phone] Pravin Landis MD Unavailable Johana Amador MD Unavailable [phone] Kym Carranza MD Primary Care Provide r Carmen Felix MD Unavailable [phone] Encounter Details Date Type Department Care Team (Late st Contact Info) Description 12/29/2024 Procedure Pass [facility] [place] [place] [id number] Social History Tobacco Use Types Packs/Day Years [...] Description 12/28/2025 1:20 PM EDT Office Visit [facility] [address] [place] [address] 3rd Floor, [address] [place] [address] Prince Freitas MD [address] [place] [address] [email or web address] documented as of this encounter Visit Diagnoses Not on filedocumented in this encounter Care Teams Door Maker Relationship Specialty Start Date End Date Kym Carranza MD [address] [place] [address] PCP - General Internal Medicine 12/22/21 Hong Maddox MD [address] [place] [address] [email or web address] Historical LMR Provider 07/04/17 Pravin Landis MD [address] [place] [address] [email or web address] Primary Oncologist Medical Oncology 02/08/21 Johana Amador MD [address] [address] Referring Physician Gastroenterology 03/27/21 Carmen Felix MD [address] [place] [phone] Ramos Medical Oncology 03/11/24 documented as of this encounter Additional Source Comments The information contained in this document represents components of the legal health record. It is not the complete legal health record.[facility]
== END 2025-08-06 14:09 | disposition home or self-care (01) ==
PROVIDERS: PCP Internal Medicine; Visit Provider Hospitalist
DX: J44.1 Chronic obstructive pulmonary disease with (acute) exacerbation (principal); R91.8 Other nonspecific abnormal finding of lung field; R06.00 Dyspnea, unspecified; R91.1 Solitary pulmonary nodule; K21.9 Gastro-esophageal reflux disease without esophagitis; Z45.42 Encounter for adjustment and management of neurostimulator; G47.33 Obstructive sleep apnea (adult) (pediatric)
CPT/HCPCS: 95977; 99214

== ENCOUNTER → 2025-08-06 13:06 | Outpatient (BNVA) | payer OTHER, SELFPAY | PROVIDERS: PCP Internal Medicine; Visit Provider Hospitalist | DX: J44.1 Chronic obstructive pulmonary disease with (acute) exacerbation (principal) | CPT/HCPCS: 95977 ==

== ENCOUNTER 2025-09-01 12:24 | Outpatient (AMB) | payer OTHER, SELFPAY ==
--- OUTSIDE RECORDS SUMMARY | 2025-08-26 11:59 | XMS_ITS | Encounter Summary ---
Author Organization [facility] [place] [address] Care Team Providers Care Cigarette Paper Tester Name Role Phone Jung Carranza MD Primary Care Provider [phone] Encounter Details Date Type Department Care Team (Latest Contact Info) Description 08/26/2025 11:59 AM EST - 08/26/2025 11:59 PM EST Hospital Encounter [facility] [address] [address] Carmen Felix MD 271 [place] [address] Malignant neoplasm of ascending colon (CMS/HCC V24, [...] Progress Notes * Josie Galeana RN - 08/26/2025 12:30 PM EST Patient arrives ambulatory to unit for a 5FU pump take down. Patient appears well stating that she feels pretty good. Patient reports that she is drinking plenty of fluids. Patient declines hydrationat this time. Patient will start antibx tomorrow in place of Fulphila. Glucose levels when taking Dexamethasone are high, patient reports that she covers herself with insulin but my need to change tohigher dose. Patient states that she has an appt with endocrinology in 2 weeks to go over her sliding scale. Patient received 100% of 5FU. Port flushed per protocol with +BR. Deaccessed, intact. Patient has no questions/concerns for the provider at this time. Next appt scheduled. Patient dischargedstable, with steady gait. documented in this encounter Plan of Treatment Upcoming Encounters Date Type Department Care Team (Late st Contact Info) Description 09/06/2025 8:30 AM EST Appointment [facility] [address] [place] [phone] 09/13/2025 11:00 AM EST Office Visit [facility] Oncology [address] [place] [phone] Carmen Felix MD [address] [place] [address] documented as of this encounter Visit Diagnoses Diagnosis Malignant neoplasm of ascending colon (CMS/HCC V24, CMS/HCC V28)- Primary Malignant neoplasm of ascending colon documented in this encounter Care Teams Cigarette Paper Tester Relationship Specialty Start Date End Date Jung Carranza MD [address] [facility] [address] [place], [place] PCP - General Internal Medicine 12/08/18 documented as of this encounter
--- NOTE | 2025-09-01 12:59 | A.OFFVIS_ITS ---
Intake Intake Visit Reasons: Needing help to put on her Dexcom Brand Director Required: No Accompanied by: Self / Same As Patient Allergies latex Allergy (Severe, Verified 08/06/25 13:30) Swelling levofloxacin (Levaquin) Allergy (Severe, Verified 08/06/25 13:30) Swelling Aspirin Allergy (Severe, Uncoded 07/23/25 13:28) Swelling HPI Comprehensive Diabetes Asmnt Most Recent Diabetes Results: Cholesterol, (<200) 136 mg/dL 01/26/25 HDL Cholesterol, (>40) 47 mg/dL 01/26/25 Triglycerides, (<150) 159 mg/dL H 01/26/25 Creatinine, (0.5-1.4) 1.16 mg/dL 01/26/25 BUN, (9-16) 19 mg/dL H 05/13/24 Sodium, (135-145) 141 mmol/L 05/13/24 Potassium, (3.3-5.1) 3.9 mmol/L 05/13/24 Chloride, (96-108) 108 mmol/L 05/13/24 Carbon Dioxide, (22-29) 23 mmol/L 05/13/24 Calcium, (8.4-10.2) 10.0 mg/dL 05/13/24 AST, (5-31) 17 U/L 05/13/24 ALT, (0-31) 21 U/L 05/13/24 Total Protein, (6.5-8.0) 7.0 g/dL 05/13/24 Albumin, (3.5-5.0) 4.0 g/dL 05/13/24 COUNT INCLUDES THE [facility] Medical History (Updated 06/03/25 @ 21:06 by RALPH Ng) Decreased GFR Pancreatic cancer CHF (congestive heart failure) Renal insufficiency Peripheral sensory neuropathy due to type 2 diabetes mellitus Type II diabetes mellitus History of transfusion of packed red blood cells Migraine History of placement of stent in LAD coronary artery Osteoporosis Hyperlipidemia Depression CAD (coronary artery disease) Sleep apnea On anticoagulant therapy TIA (transient ischemic attack) Myocardial infarction Obesity Diabetes Dyslipidemia History of colon cancer HTN (hypertension) Carotid stenosis, asymptomatic GERD (gastroesophageal reflux disease) Colon cancer Pre-op chest exam Lung cancer Pulmonary nodules Dyspnea COPD (chronic obstructive pulmonary disease) Pulmonary nodule Surgical History History of surgery History of incisional hernia repair (07/06/24) Hx of tonsillectomy Hx of tubal ligation History of dental surgery Hx of cardiac catheterization History of lobectomy of lung Family History Mother Stroke Diabetes Father Alcoholic cirrhosis of liver Social History Household Members: None Housing: House Are you a primary specialist wound care to a significant other at home: No Do you presently have visiting nurse or other home services: No Patient Tobacco Use Status: Former Tobacco user Tobacco use type: Cigarette Years Smoked: 20+ Years Second Hand Smoke Exposure: No service: No Assessment & Plan Assessment & Plan (1) Peripheral sensory neuropathy due to type 2 diabetes mellitus: Code(s): E11.42 - Type 2 diabetes mellitus with diabetic polyneuropathy Plan: Patient at visit to set up an insert Dexcom G7 with smart phone raad Patient reports having difficulty inserting Dexcom G7 sensor. Reports she had tried to insert 3 sensors but was unable to get them to work. At today's visit we successfully inserted 1 of patient's Dexcom G7 sensors CGM is the reading of glucose in the interstitial fluid not actual blood glucose, finger sticks are still necessary when Pt's symptom?s do not match sensor reading and if sensors prompts Pt to do a fingerstick Instructed patient sensors water proof you can shower, or swim do not submerge sensor in water for over 30 minutes Is sensor falls off cannot put back in you need to replace sensor, customer service number given to patient for sensor replacement Sensor placed on the back of left arm Patient left visit with sensor in warmup Patient currently being treated for pancreatic cancer. Glucose levels have been running above target Patient has follow-up appointment with endocrine PA on 09/03/2025 Reminded Pt that if symptoms do not match sensor still needs to check fingersticks. Portions of this note were created using voice recognition software, please excuse any words or phrases that may have been misinterpreted. 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
--- OUTSIDE RECORDS SUMMARY | 2025-09-01 16:17 | XMS_ITS | Encounter Summary ---
Author Organization [facility] Address [address] [place] [address] [address] [place] [address] Phone Care Team Providers Care Brick And Blocker Aid Labor Name Role Phone Hong Maddox MD Unavailable [phone] Pravin Landis MD Unavailable [phone] Johana Amador MD Unavailable [phone] Kym Carranza MD Primary Care Provide r Carmen Felix MD Unavailable [phone] Encounter Details Date Type Department Care Team (Late st Contact Info) Description 01/04/2022 Procedure Pass [facility] Endoscopy Department [address] [place] [address] Social History Tobacco Use Types Packs/Day Years [...] Description 12/28/2025 1:20 PM EDT Office Visit [facility] [address] [place] [address] 3rd Floor, [address] [place] [address] Prince Freitas MD [address] [facility], [address] [place] [address] [email or web address] documented as of this encounter Visit Diagnoses Not on filedocumented in this encounter Care Teams Brick And Blocker Aid Labor Relationship Specialty Start Date End Date Kym Carranza MD [address] [place] [address] 1 [place] [address] PCP - General Internal Medicine 12/22/21 Hong Maddox MD [address] [address] [email or web address] Historical LMR Provider 07/04/17 Pravin Landis MD [address] [place] [address] [email or web address] Primary Oncologist Medical Oncology 02/08/21 Johana Amador MD [address] [address] Referring Physician Gastroenterology 03/27/21 Carmen Felix MD 271 [place] [phone] Ramos Medical Oncology 03/11/24 documented as of this encounter Additional Source Comments The information contained in this document represents components of the legal health record. It is not the complete legal health record.[facility]
--- OUTSIDE RECORDS SUMMARY | 2025-09-01 16:17 | XMS_ITS | Encounter Summary ---
Author Organization [facility] Address [address] [place] [address] Phone Care Team Providers Care Podiatric Foot And Ankle Specialist Name Role Phone Evangelist Gabriel MD Unavailable Vignesh Farias MD Unavailable Dixon Quiñones NP Unavailable [phone] Hong Maddox MD Unavailable [phone] Kym Carranza MD Primary Care Provide r Self-Referred, Patient Unavailable Unavailab Pravin Leung MD Unavailable [phone] Johana Amador MD Unavailable [phone] Johana Amador MD Primary Care Provid er Kym Carranza MD Primary Care Provide r Carmen Felix MD Unavailable [phone] Encounter Details Date Type Department Care Team (Late st Contact Info) Description 12/20/2020 Procedure Pass [facility] Periop [address] [place], [place] [id number] Social History Tobacco Use Types Packs/Day Years [...] 7:00 PM EDT Derrick Palacio RN * Fowler Suicide Severity Rating Scale (Screener/Recent Self-Report) Question [...] Description 12/28/2025 1:20 PM EDT Office Visit [facility] [address] [place] [address] 3rd [facility], [address] [place] [address] Prince Freitas MD [address] [place] [address] [place] [address] [email or web address] documented as of this encounter Visit Diagnoses Not on filedocumented in this encounter Care Teams Podiatric Foot And Ankle Specialist Relationship Specialty Start Date End Date Kym Carranza MD [address] [place] [address] [address] [place] [address] PCP - General Internal Medicine 11/28/20 05/04/21 Johana Amador MD [address] [place] [address] PCP - General Gastroenterology 05/05/21 12/21/21 Kym Carranza MD [address] [address] PCP - General Internal Medicine 12/22/21 Evangelist Gabriel MD [address] [place] [address] [email or web address] Historical LMR Provider 07/04/17 09/23/21 Vignesh Farias MD [address] [place] [address] [email or web address] Historical LMR Provider 07/04/17 09/23/21 Dixon Quiñones NP [address] [place] [phone] Historical LMR Provider 07/04/17 2 Hong Maddox MD [address] [place] [address] [email or web address] Historical LMR Provider 07/04/17 Self-Referred, Patient Referring Physician 11/28/20 Pravin Landis MD [address] [place] [address] [email or web address] Primary Oncologist Medical Oncology 02/08/21 Johana Amador MD [address] [place] [address] Referring Physician Gastroenterology 03/27/21 Carmen Felix MD [address] [place] [phone] [email or web address] Medical Oncology 03/11/24 documented as of this encounter Additional Source Comments The information contained in this document represents components of the legal health record. It is not the complete legal health record.[facility]
--- OUTSIDE RECORDS SUMMARY | 2025-09-01 16:17 | XMS_ITS | Encounter Summary ---
Author Organization [facility] Address [address] [place] [address] Phone Care Team Providers Care Redrawer Name Role Phone Evangelist Gabriel MD Unavailable Vignesh Farias MD Unavailable [phone] Dixon Quiñones NP Unavailable Hong Maddox MD Unavailable [phone] Kym Carranza MD Primary Care Provide r Self-Referred, Patient Unavailable Unavailab Pravin Leung MD Unavailable Johana Amador MD Unavailable [phone] Johana Amador MD Primary Care Provid er Kym Carranza MD Primary Care Provide r Carmen Felix MD Unavailable [phone] Encounter Details Date Type Department Care Team ([facility] st Contact Info) Description 12/15/2020 Telephone [facility] [address] [place] [address] Kendall Garcia MD, MPH [address] [facility]-3rd [place] [address] [email or web address] Social History Tobacco Use Types Packs/Day Years [...] Upcoming Encounters Date Type Department Care Team ([facility] st Contact Info) Description 12/28/2025 1:20 PM EDT Office Visit [facility] [address] [place] [address] 3rd Floor, [address] [place] [address] [id number] Prince Freitas MD [address] [place] [address] [email or web address] documented as of this encounter Visit Diagnoses Not on filedocumented in this encounter Care Teams Redrawer Relationship Specialty Start Date End Date Kym Carranza MD [address] [place] [address] PCP - General Internal Medicine 11/28/20 05/04/21 Johana Amador MD [address] [place] [address] PCP - General Gastroenterology 05/05/21 12/21/21 Kym Carranza MD [address] [place] [address] PCP - General Internal Medicine 12/22/21 Evangelist Gabriel MD [address] [place] [address], [address] [address] Historical LMR Provider 07/04/17 09/23/21 Vignesh Farias MD [address] [facility], [address] [place] [address] [email or web address] Historical LMR Provider 07/04/17 09/23/21 Dixon Quiñones, ELVIRA [address] [place] [address] [address] [place] [address] Historical LMR Provider 07/04/17 2 Hong Maddox MD [address] [address] [email or web address] Historical LMR Provider 07/04/17 Self-Referred, Patient Referring Physician 11/28/20 Pravin Landis MD [address] [place] [address] [email or web address] Primary Oncologist Medical Oncology 02/08/21 Johana Amador MD [address] [address] Referring Physician Gastroenterology 03/27/21 Carmen Felix MD [address] [place] [address] Ramos [email or web address] Medical Oncology 03/11/24 documented as of this encounter Additional Source Comments The information contained in this document represents components of the legal health record. It is not the complete legal health record.[facility]
--- OUTSIDE RECORDS SUMMARY | 2025-09-01 16:17 | XMS_ITS | Encounter Summary ---
Author Organization [facility] Address [address] [facility] [address] [place] [address] Phone Care Team Providers Care Waiter/Waitress Cabin Class Name Role Phone Hong Maddox MD Unavailable [phone] Pravin Landis MD Unavailable [phone] Johana Amador MD Unavailable [phone] Kym Carranza MD Primary Care Provide r Carmen Felix MD Unavailable [phone] Encounter Details Date Type Department Care Team (Late st Contact Info) Description 03/13/2022 Procedure Pass [facility], [facility] [place], [place] [address] [facility], Floor [address] [place] [address] Social History Tobacco Use Types [...] Description 12/28/2025 1:20 PM EDT Office Visit [facility] [address] [place] [address] 3rd Floor, [address] [place] [address] Prince Freitas MD [address] [facility], [address] [place] [address] [email or web address] documented as of this encounter Visit Diagnoses Not on filedocumented in this encounter Care Teams Waiter/Waitress Cabin Class Relationship Specialty Start Date End Date Kym Carranza MD [address] [place] [address] PCP - General Internal Medicine 12/22/21 Hong Maddox MD [address] [place] [address] [email or web address] Historical LMR Provider 07/04/17 Pravin Landis MD [address] [place] [address] [email or web address] Primary Oncologist Medical Oncology 02/08/21 Johana Amador MD [address] [place] [address] Referring Physician Gastroenterology 03/27/21 Carmen Felix MD [address] [place] [phone] Ramos Medical Oncology 03/11/24 documented as of this encounter Additional Source Comments The information contained in this document represents components of the legal health record. It is not the complete legal health record.[facility]
--- OUTSIDE RECORDS SUMMARY | 2025-09-01 16:17 | XMS_ITS | Clinical Summary ---
Author Organization [facility] Prior to 02/13/[address] [place] [address] Care Team Providers Care Retail District Manager Name Role Phone Jung Carranza MD Primary Care Provider [phone] Allergies Active Allergy Reactions Criticality Noted Date [...] age to complete this topic Care Teams Retail District Manager Relationship Specialty Start Date End Date Jung Carranza MD [address] [facility] [address] [place] [address] PCP - General Internal Medicine 02/12/24
--- OUTSIDE RECORDS SUMMARY | 2025-09-01 16:18 | XMS_ITS | Encounter Summary ---
Author Organization [facility] Address [address] [place] [address] Phone Care Team Providers Care Motorcycle Engine Assembler Name Role Phone Evangelist Gabriel MD Unavailable [phone] Vignesh Farias MD Unavailable [phone] Dixon Quiñones NP Unavailable [phone] Hong Maddox MD Unavailable [phone] Pravin Landis MD Unavailable Johana Amador MD Unavailable [phone] Johana Amador MD Primary Care Provid er Kym Carranza MD Primary Care Provide r Carmen Felix MD Unavailable [phone] Encounter Details Date Type Department Care Team (Late st Contact Info) Description 08/29/2021 Procedure Pass [address] [address] Social History Tobacco Use Types Packs/Day Years [...] Description 12/28/2025 1:20 PM EDT Office Visit [facility] [address] [place] [address] 3rd Floor, [address] [place] [address] Prince Freitas MD [address] [place] [address] documented as of this encounter Visit Diagnoses Not on filedocumented in this encounter Care Teams Motorcycle Engine Assembler Relationship Specialty Start Date End Date Johana Amador MD [address] [place] [address] PCP - General Gastroenterology 05/05/21 12/21/21 Kym Carranza MD [address] [place] [address] PCP - General Internal Medicine 12/22/21 Evangelist Gabriel MD [address] [place] [address] Historical LMR Provider 07/04/17 09/23/21 Vignesh Farias MD [address] [place] [address] Historical LMR Provider 07/04/17 09/23/21 Dixon Quiñones NP [address] [place] [address] [phone] Historical LMR Provider 07/04/17 2 Hong Maddox MD [address] [facility] 1 [place] [address] [email or web address] Historical LMR Provider 07/04/17 Pravin Landis MD [address] [place] [address] [email or web address] Primary Oncologist Medical Oncology 02/08/21 Johana Amador MD [address] [place] [address] Referring Physician Gastroenterology 03/27/21 Carmen Felix MD [address] [place] [phone] Ramos [email or web address] Medical Oncology 03/11/24 documented as of this encounter Additional Source Comments The information contained in this document represents components of the legal health record. It is not the complete legal health record.[facility]
--- OUTSIDE RECORDS SUMMARY | 2025-09-01 16:18 | XMS_ITS ---
Author Organization [facility] Address [address] [place] [address] Phone Care Team Providers Care Solar Sales Name Role Phone Jung Carranza MD Primary Care Provider [phone] Active Problems Problem Noted Date Diagnosed Date Drug therapy 07/01/2025 Chemotherapy-induced peripheral neuropathy 05/24 Transaminitis 04/26/2025 Anxiety 04/26/2025 Chemotherapy-induced fatigue 04/26/2025 Left upper quadrant abdominal pain 03/08/2025 Family history of pancreatic cancer 02/01/2025 Lung cancer 02/01/2025 Overview (02/01/2025): s/p L lobectomy in 2004, R wedge resection 2009 TIA (transient ischemic attack) 01/19/2025 Malignant neoplasm of tail of pancreas Cancer Staging:Pathologic stage from 01/07/2025:Stage IIA(pT3, pN0, cM0) - Signed by Carmen Felix MD on 02/02/2025 Malignant neoplasm of upper lobe of right lung 1 Malignant neoplasm of ascending colon 02/21/2021 Asthma-COPD overlap syndrome 11/06/2017 COPD (chronic obstructive pulmonary disease) Gastroesophageal reflux 11/06/2017 Hiatal hernia 11/06/2017 Hyperlipidemia 11/06/2017 Pulmonary nodules 11/06/2017 Adenocarcinoma of lung 06/01/2009 Osteoporosis 02/16/2009 Current Treatment and Therapy Plans FOLFIRINOX ( Fluorouracil Continuous Infusion / Leucovorin / Irinotecan / OXALIplatin )* Plan Start Date:04/04/2025 Plan Provider:Carmen Felix MD Linked Problems 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 ([facility] V24, [facility] V28)Drug therapy Treatment Medications Current Day (Day 1 , Cycle 10 - Planned for 09/06/2025) Next Day (Day 3, Cycle 10 - Planned for 09/08/2025) 5-FU (ADRUCIL) chemo infusio n 100 mL - for home use solutionfluorouracil (ADRUCIL)irinotecan (CAMPTOSAR) chemo IVPBleucovorinleucovorin IVPB in D5W (350 mg vial)OXALIplatin (ELOXATIN)OXALIplatin (ELOXATIN) chemo infusion fluorouracil (ADRUCIL) 2,600 mg in sodium chloride 0.9 % 100 mL chemo infusionfluorouracil (ADRUCIL) chemo injection 450 mgirinotecan (CAMPTOSAR) 190 mg in dextrose 259.5 mL chemo IVPBleucovorin 450 mg in dextrose 272.5 mL IVPBOXALIplatin (ELOXATIN) 75 mg in dextrose 265 mL chemo infusion No medications scheduled. HYDRATION AND ELECTROLYTES* Plan Start Date:04/15/2025 Plan Provider:Carmen Felix MD Linked Problems 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 ([facility] V24, [facility] V28) Treatment Medications No medications scheduled. Past Treatment and Therapy Plans No past plan information found. Lifetime Dose Tracking * Chemical Lifetime Dose Automatic Entry Manual Entr y Fluoro Time 1 minutes 1 minutes 0 minutes Air Kerma 7 mGy 7 mGy 0 mGy
--- OUTSIDE RECORDS SUMMARY | 2025-09-01 16:18 | XMS_ITS | Clinical Summary ---
Author Organization [facility] Address [address] [place] [address] Phone Care Team Providers Care Quality Tech Name Role Phone Jung Carranza MD Primary Care Provider [phone] Allergies Active Allergy Reactions Criticality Noted Date [...] 23 Active loperamide (IMODIUM A-D) 2 mg tabletIndication [...] 04/05/20 25 Active prochlorperazine (COMPAZINE) 10 mg tabletIndication s:Malignant neoplasm of tail of pancreas (CMS/HCC V24, CMS/HCC V28) Take 1 tablet (10 mg total) by mouth every 6 (six) hours if needed for nausea or vomiting. 60 tablet 3 04/05/20 25 Active amoxicillin-clav ulanate (AUGMENTIN) 875-125 mg per tablet Take 1 tablet by mouth 2 (two) times a day. for 7 days 08/01/20 25 025 Discontinu ed(Reorder ) amoxicillin-clav ulanate (AUGMENTIN) 875-125 mg per tablet Take 1 tablet by mouth 2 (two) times a day for 7 days. for 7 days 14 each 3 08/16/20 25 025 Active Problems Problem Noted Date [...] 11/06/2017 Adenocarcinoma of lung 06/01/2009 Osteoporosis 02/16/2009 Encounters Date Type Department Care Team Description 08/26/2025 11:59 AM EST - 08/26/2025 11:59 PM EST Hospital Encounter [facility] [address] [place] [address] 2[address] [place] [phone] Subramonia-Iy Carmen subramanian MD Malignant neoplasm of ascending colon (CMS/HCC V24, CMS/HCC V28) (Primary Dx) Discharge Disposition: Home or Self Care 08/24/2025 8:14 AM EST - 08/24/2025 11:59 PM EST Hospital Encounter [facility] [address] [place] [phone] Elzbietaramonia-Iy Carmen subramanian MD Drug therapy (Primary Dx); Malignant neoplasm of tail of pancreas (CMS/HCC V24, CMS/HCC V28) Discharge Disposition: Home or Self Care 08/24/[address] [phone] Cy Salguero LMSW 08/23/2025 10:05 AM EST Lab Draw Station - [address] [phone] Malignant neoplasm of tail of pancreas (CMS/HCC V24, CMS/HCC V28) 08/16/2025 10:45 AM EST Office Visit [facility] Hematology Oncology [address] [place] [phone] Sevenonia-Iy Carmen subramanian MD Malignant neoplasm of tail of pancreas (CMS/HCC V24, CMS/HCC V28) (Primary Dx); Chemotherapy-induced peripheral neuropathy ([facility]/HCC V24); Anxiety; Chemotherapy-induced fatigue; Age-related osteoporosis without current pathological fracture; Weight loss; Drug therapy 08/16/2025 9:27 AM EST - 08/16/2025 11:59 PM EST Hospital Encounter [address] [phone] Sevenonia-Iy Carmen subramanian MD Adenocarcinoma of lung, unspecified laterality (CMS/HCC V24, CMS/HCC V28) (Primary Dx); Malignant neoplasm of tail of pancreas (CMS/HCC V24, CMS/HCC V28) Discharge Disposition: Home or Self Care 08/11/2025 12:00 PM EST - 08/11/2025 11:59 PM EST Hospital Encounter [facility] [address] [place] [phone] Elzbietaramonia-Iy Carmen subramanian MD Malignant neoplasm of ascending colon (CMS/HCC V24, CMS/HCC V28) (Primary Dx); Malignant neoplasm of upper lobe of right lung (CMS/HCC V24, CMS/HCC V28); Family history of pancreatic cancer; Malignant neoplasm of tail of pancreas (CMS/HCC V24, CMS/HCC V28) Discharge Disposition: Home or Self Care 08/09/2025 8:16 AM EST - 08/09/2025 11:59 PM EST Hospital Encounter [address] [phone] Elzbietaramonia-Iy Carmen subramanian MD Drug therapy (Primary Dx); Malignant neoplasm of tail of pancreas (CMS/HCC V24, CMS/HCC V28) Discharge Disposition: Home or Self Care 08/06/2025 8:45 AM EST Lab Draw Station - [address] [phone] Malignant neoplasm of tail of pancreas (CMS/HCC V24, [facility]/HCC V28); Drug therapy 08/06/[address] [phone] Nuria Muñoz RN 08/03/2025 [facility] [address] [place] [phone] Nuria Muñoz RN 08/02/2025 9:48 AM EST - 08/02/2025 11:59 PM EST Hospital Encounter [facility] [address] [place] [phone] Elzbietaramonia-Iy Carmen subramanian MD Malignant neoplasm of tail of pancreas (CMS/HCC V24, CMS/HCC V28) (Primary Dx) Discharge Disposition: Home or Self Care 08/02/2025 [facility] [address] [place] [phone] Nuria Muñoz RN 07/29/2025 2:15 PM EST - 07/29/2025 11:59 PM EST Hospital Encounter [facility] [address] [place] [phone] Cough, unspecified type Discharge Disposition: Home or Self Care 07/29/2025 2:00 PM EST Office Visit [facility] Hematology Oncology [address] [place] [phone] Dianna Sommers PA Malignant neoplasm of tail of pancreas (CMS/HCC V24, CMS/HCC V28) (Primary Dx); Cough, unspecified type 07/29/2025 12:54 PM EST - 07/29/2025 11:59 PM EST Hospital Encounter [facility] [address] [phone] Elzbietaramonia-Iy Carmen subramanian MD Malignant neoplasm of tail of pancreas (CMS/HCC V24, CMS/HCC V28) (Primary Dx); Drug therapy Discharge Disposition: Home or Self Care 07/26/2025 Telephone [facility] [address] [place] [phone] Sunshine Kimbrough, SHAWN 07/26/2025 [facility] [address] [place] [phone] Jessica Whitney, SHAWN 07/19/2025 3:15 PM EST Office Visit [facility] [address] [place] [phone] Subramonia-Iy Carmen subramanian MD Malignant neoplasm of tail of pancreas (CMS/HCC V24, CMS/HCC V28) (Primary Dx); Chemotherapy-induced peripheral neuropathy (CMS/HCC V24); Anxiety; Chemotherapy-induced fatigue; Family history of pancreatic cancer; Pulmonary nodules; Malignant neoplasm of upper lobe of right lung (CMS/HCC V24, CMS/HCC V28); Overlapping malignant neoplasm of colon (CMS/HCC V24, CMS/HCC V28) 07/19/2025 1:51 PM EST - 07/19/2025 11:59 PM EST Hospital Encounter [facility] [address] [place] [phone] Elzbietaramonia-Iy Carmen subramanian MD Malignant neoplasm of tail of pancreas (CMS/HCC V24, CMS/HCC V28) (Primary Dx); Malignant neoplasm of upper lobe of right lung (CMS/HCC V24, CMS/HCC V28) Discharge Disposition: Home or Self Care 07/15/2025 1:00 PM EDT - 07/15/2025 11:59 PM EDT Hospital Encounter [facility] [address] [place] [phone] Malignant neoplasm of ascending colon (CMS/HCC V24, CMS/HCC V28) (Primary Dx) Discharge Disposition: Home or Self Care 07/13/2025 8:15 AM EDT - 07/13/2025 11:59 PM EDT Hospital Encounter [address] [phone] Elzbietaramonia-Iy Carmen subramanian MD Drug therapy (Primary Dx); Malignant neoplasm of tail of pancreas (CMS/HCC V24, CMS/HCC V28) Discharge Disposition: Home or Self Care 07/01/2025 11:51 AM EDT - 07/01/2025 11:59 PM EDT Hospital Encounter [facility] [address] [place] [phone] Adenocarcinoma of right lung (CMS/HCC V24, CMS/HCC V28) (Primary Dx); Malignant neoplasm of ascending colon (CMS/HCC V24, CMS/HCC V28) Discharge Disposition: Home or Self Care 06/29/2025 8:27 AM EDT - 06/29/2025 11:59 PM EDT Hospital Encounter [facility] [address] [place] [phone] Elzbietaramonia-Iy Carmen subramanian MD Malignant neoplasm of tail of pancreas (CMS/HCC V24, CMS/HCC V28) (Primary Dx) Discharge Disposition: Home or Self Care 06/21/2025 11:45 AM EDT Office Visit [facility] [address] [place] [phone] Elzbietaramonia-Iy erCarmen MD Adenocarcinoma of right lung ([facility] V24, [facility] V28) (Primary Dx); Chemotherapy-induced peripheral neuropathy ([facility] V24); Malignant neoplasm of tail of pancreas ([facility] V24, [facility] V28); Age-related osteoporosis without current pathological fracture; Chemotherapy-induced fatigue; Anxiety 06/17/2025 11:54 AM EDT - 06/17/2025 11:59 PM EDT Hospital Encounter [address] [phone] Elzbietaramonia-Iy erCarmen MD Malignant neoplasm of tail of pancreas ([facility] V24, [facility] V28) (Primary Dx) Discharge Disposition: Home or Self Care 06/15/2025 8:18 AM EDT - 06/15/2025 11:59 PM EDT Hospital Encounter [address] [phone] Elzbietaramonia-Iy erCarmen MD Malignant neoplasm of tail of pancreas ([facility] V24, [facility] V28) (Primary Dx) Discharge Disposition: Home or Self Care 06/15/[address] [phone] Cy Salguero LMSW 06/07/2025 Telephone [facility] [address] [place] [phone] Emelina Glover RN from Last 3 Months Immunizations Immunization Administration Dates Next Due HiB PRP-T conjugate (Acthib, Hiberix) 6wks and older 01/08/2025(Deferred: Patient Refused) Meningococcal B, Recombinant (Bexsero) 16yo to less than 24yo 01/08/2025 [employer] (ages 12 & older) MENG S-CoV-2 COVID-19, mRNA, LNP-S, nj-sucrose, preservative free 02/06/2022 [facility] SARS-CoV-2 COVID-19, mRNA, LNP-S, preservative free 08/26/2021,12/30/2020,12/06/2020 [...] Comments Asthma 11/06/2017 DX:Asthma Asthma-COPD overlap syndrome ([facility] V24, [facility] V28) 11/06/2017 DX:Asthma-COPD overlap syndr ome (HCC) COPD (chronic obstructive pu lmonary disease) ([facility] V24, [facility] V28) 11/06/2017 DX:COPD (chronic o bstructive pulmonary disease) (HCC) Gastroesophageal reflux 11/06/2017 DX:Gastr oesophageal reflux Hiatal hernia 11/06/2017 DX:Hiatal hernia History of lung cancer 11/06/2017 DX:Histor y of lung cancer; COMMENT: X2, s/p resection Hyperlipidemia 11/06/2017 DX:Hyperlipidemi a Pulmonary nodules 11/06/2017 DX:Pulmonary n odules Lung cancer ([facility] V24, [facility] V28) DX:Lung cancer (HCC) COPD (chronic obstructive pu lmonary disease) ([facility] V24, [facility] V28) DX:COPD (chronic o bstructive pulmonary disease) ([facility]) GERD (gastroesophageal reflux disease) DX:GERD (gastroesophageal reflux disease) Colon cancer ([facility] V24, [facility] V28) DX:Colon cancer (HCC) Diabetes mellitus ([facility] V 24, [facility] V28) DX:Diabetes mellitus (HCC) MS, old Heart disease Shortness of breath [...] Orientation Straight 12/17/2024 8: 34 AM EDT Last Filed Vital Signs Vital Sign Reading Time Taken Comments Blood Pressure 117/68 08/24/2025 8:26 AM EST Pulse 80 08/24/2025 8:26 AM EST Temperature 36.7 C (98 F) 08/24/2025 8:26 AM EST Respiratory Rate 18 08/24/2025 8:26 AM EST Oxygen Saturation 99% 08/24/2025 8:26 AM EST Inhaled Oxygen Concentration - - Weight 74.8 kg (164 lb 12.8 oz) 08/24/2025 8:26 AM EST Height 162.6 cm (5' 4.02 ) 08/24/2025 8:26 AM ES T Body Mass Index 28.27 08/24/2025 8:26 AM EST Plan of Treatment Upcoming Encounters Date Type Department Care Team (Late st Contact Info) Description 09/06/2025 8:30 AM EST Appointment [facility] [address] [phone] 09/13/2025 11:00 AM EST Office Visit [facility] H[facility]ology Oncology [address] [place] [phone] Carmen Felix MD [address] [place] [phone] Health Maintenance Due Date Last Done Comments Drug Screen 1950 Non-Opioid Controlled Substance Agreement 1950 Diabetes: Annual Foot Exam 02/29/1960 Diabetes: [...] 01/19/2025 Diabetes: Annual GFR (Glomerular Filtration Rate) 08/23/2026 08/23/2025, 08/16/2025, 08/06/2025, Additional history exists Hypertension/CHF/CAD Annual BMP Blood Test 08/23/2026 08/23/2025, 08/16/2025, 08/06/2025, Additional history exists Falls Risk Assessment 08/24/2026 08/24/2025 Cholesterol Screening (Lipid Panel) 01/19/2030 01/19/2025, 03/09/2024 [...] this topic Medical Devices Implanted Type Area Ready To Wear Department Manager Device Identifier Shelf Expiration Date Model / Serial / Lot Port Pwr Slim Poly 6f Sandra Inte Attach - [id number] Implanted:Qty: 1 on 03/23/2025 by Blake Beaulieu MD at [facility] Central/Yaneth pheral Catheters and Ports Right: Chest Wall CR [employer] [id number] 11/13/2025 [id number] / / [id number] Procedures Procedure Name Priority Date/Time Associated Diagnosis Comments CBC WITH AUTO DIFFERENTIAL Routine 08/23/2025 10:04 AM EST Malignant neoplasm of tail of pancreas (CMS/HCC V24, CMS/HCC V28) COMPREHENSIVE METABOLIC PANEL Routine 08/23/2025 10:04 AM EST Malignant neoplasm of tail of pancreas (CMS/HCC V24, CMS/HCC V28) CBC AND DIFFERENTIAL Routine 08/23/2025 10:04 AM EST Malignant neoplasm of tail of pancreas (CMS/HCC V24, CMS/HCC V28) CANCER ANTIGEN 19-9 Routine 08/23/2025 1 0:04 AM EST Malignant neoplasm of tail of pancreas (CMS/HCC V24, CMS/HCC V28) CBC WITH AUTO DIFFERENTIAL STAT 08/16/2025 9:46 AM EST Adenocarcinoma of lung, unspecified laterality (CMS/HCC V24, CMS/HCC V28) COMPREHENSIVE METABOLIC PANEL STAT 08/16/2025 9:46 AM EST Adenocarcinoma of lung, unspecified laterality (CMS/HCC V24, CMS/HCC V28) CBC AND DIFFERENTIAL STAT 08/16/2025 9:46 AM EST Adenocarcinoma of lung, unspecified laterality (CMS/HCC V24, CMS/HCC V28) CBC WITH AUTO DIFFERENTIAL Routine 08/06/2025 8:41 AM EST Malignant neoplasm of tail of pancreas (CMS/HCC V24, CMS/HCC V28) Drug therapy CBC AND DIFFERENTIAL Routine 08/06/2025 8:41 AM EST Malignant neoplasm of tail of pancreas (CMS/HCC V24, CMS/HCC V28) Drug therapy COMPREHENSIVE METABOLIC PANEL Routine 08/06/2025 8:41 AM EST Malignant neoplasm of tail of pancreas (CMS/HCC V24, CMS/HCC V28) CANCER ANTIGEN 19-9 Routine 08/06/2025 8 :41 AM EST Malignant neoplasm of tail of [...] Recently Relevant to Health Maintenance Results * CBC auto differential (08/23/2025 10:04 AM EST) Only the most recent of11 resultswithin the time period is included. WBC 5.5 4.8 - 10.8 K/mcL LAB HEMETOLOGY METHOD 08/23/2025 12:32 PM [facility] RBC 4.10 3.80 - 4.80 M/mcL LAB HEMETOLOGY METHOD 08/23/2025 12:32 PM [facility] Hemoglobin 12.9 11.5 - 16.0 g/dL LAB HEMETOLOGY METHOD 08/23/2025 12:32 PM [facility] Hematocrit 39.0 35.0 - 47.0 % LAB HEMETOLOGY METHOD 08/23/2025 12:32 PM [facility] MCV 95.4 79.0 - 98.0 FL LAB HEMETOLOGY METHOD 08/23/2025 12:32 PM [facility] MCH 31.5 27.0 - 32.0 pcg LAB HEMETOLOGY METHOD 08/23/2025 12:32 PM [facility] MCHC 33.1 32.0 - 37.0 g/dL LAB HEMETOLOGY METHOD 08/23/2025 12:32 PM [facility] RDW 13.8 11.0 - 15.0 % LAB HEMETOLOGY METHOD 08/23/2025 12:32 PM [facility] Platelets 348 130 - 400 K/mcL LAB HEMETOLOGY METHOD 08/23/2025 12:32 PM [facility] MPV 10.3 7.0 - 11.0 FL LAB HEMETOLOGY METHOD 08/23/2025 12:32 PM [facility] NRBC 0.7 <1.0 % LAB HEMETOLOGY METHOD 08/23/2025 12:32 PM [facility] NRBC Absolute 0.04 <0.10 K/mcL LAB HEMETOLOGY METHOD 08/23/2025 12:32 PM [facility] Neutrophils Relative 49.5 % LAB HEMETOLOGY METHOD 08/23/2025 12:32 PM [facility] Lymphocytes Relative 29.3 % LAB HEMETOLOGY METHOD 08/23/2025 12:32 PM [facility] Monocytes Relative 15.2 % LAB HEMETOLOGY METHOD 08/23/2025 12:32 PM [facility] Eosinophils Relative 5.1 % LAB HEMETOLOGY METHOD 08/23/2025 12:32 PM [facility] Basophils Relative 0.7 % LAB HEMETOLOGY METHOD 08/23/2025 12:32 PM [facility] Immature Granulocytes Relative 0.2 % LAB HEMETOLOGY METHOD 08/23/2025 12:32 PM [facility] Neutrophils Absolute 2.71 1.50 - 7.00 K/mcL LAB HEMETOLOGY METHOD 08/23/2025 12:32 PM [facility] Lymphocytes Absolute 1.60 1.00 - 5.00 K/mcL LAB HEMETOLOGY METHOD 08/23/2025 12:32 PM [facility] Monocytes Absolute 0.83 0.20 - 1.00 K/mcL LAB HEMETOLOGY METHOD 08/23/2025 12:32 PM [facility] Eosinophils Absolute 0.28 0.00 - 0.50 K/mcL LAB HEMETOLOGY METHOD 08/23/2025 12:32 PM EST [facility] Basophils Absolute 0.04 0.00 - 0.20 K/[facility] LAB HEMETOLOGY METHOD 08/23/2025 12:32 PM EST [facility] Immature Granulocytes Absolute 0.01 0.00 - 0.03 K/[facility] LAB HEMETOLOGY METHOD 08/23/2025 12:32 PM EST [facility] Blood Venous blood specimen / Unknown Venipuncture / Unknown 08/23/2025 10:04 AM EST 08/23/2025 11:39 AM EST Carmen Felix MD LAB BLOOD ORDERABLE S Final Result [facility] [address] [place] [address], * (ABNORMAL) Cancer antigen 19-9 (08/23/2025 10:04 AM EST) Only the most recent of3 resultswithin the time period is included. CA 19-9 71.9(H) <=35 U/mL 08/25/2025 10:57 AM EST [facility] Comment: The Siemens Advia Centaur CA199 Chemiluminescent Immunoassay is used. Results obtained with different assay methods or kits cannot be used interchangeably. Results cannot be interpreted as absolute evidence of the presence or absence of malignant disease. Test performed at [facility], [address] , [place] [address] Sangita Sharma MD, PhD - Belt Builder Blood Venous blood specimen / Unknown Venipuncture / Unknown 08/23/2025 10:04 AM EST 08/23/2025 11:41 AM EST us Carmen Felix MD LAB BLOOD ORDERABLE S Final Result [facility] [address] [place] [address] * (ABNORMAL) Comprehensive metabolic panel (08/23/2025 10:04 AM EST) Only the most recent of11 resultswithin the time period is included. Sodium 136 133 - 145 mmol/L 08/23/2025 12:39 PM [facility] Potassium 4.4 3.5 - 5.5 mmol/L 08/23/2025 12:39 PM [facility] Chloride 100 96 - 110 mmol/L 08/23/2025 12:39 PM [facility] CO2 25 21 - 32 mmol/L 08/23/2025 12:39 PM [facility] Anion Gap 11 3 - 11 08/23/2025 12:39 PM [facility] Glucose 405(HH) 70 - 100 mg/dL 08/23/2025 12:39 PM [facility] BUN 21 5 - 25 mg/dL 08/23/2025 12:39 PM [facility] Creatinine 1.20(H) 0.50 - 1.10 mg/dL 08/23/2025 12:39 PM [facility] eGFR 47(L) >=60 mL/min/1. 73m2 08/23/2025 12:39 PM [facility] Comment:Calculation based on the Chronic Kidney Disease Epidemiology Collaboration (CKD-EPI) equation refit without adjustment for race. BUN/Creatinine Ratio 17.5 08/23/2025 12:39 PM [facility] Calcium 8.6 8.5 - 10.5 mg/dL 08/23/2025 12:39 PM [facility] AST (SGOT) 36 10 - 42 unit/L 08/23/2025 12:39 PM [facility] ALT (SGPT) 59 10 - 60 unit/L 08/23/2025 12:39 PM [facility] Alkaline Phosphatase 75 42 - 121 unit/L 08/23/2025 12:39 PM EST [facility] Total Protein 5.6(L) 6.0 - 8.0 g/dL 08/23/2025 12:39 PM EST [facility] Albumin 3.7 3.2 - 5.0 g/dL 08/23/2025 12:39 PM EST [facility] Total Bilirubin 1.1 0.0 - 1.4 mg/dL 08/23/2025 12:39 PM EST [facility] Blood Venous blood specimen / Unknown Venipuncture / Unknown 08/23/2025 10:04 AM EST 08/23/2025 11:41 AM EST Subramsarah Felix MD LAB BLOOD ORDERABLE S Final Result [facility] [address] [place] [address], [place] [phone] * XR Chest 2 Views (07/29/2025 2:27 [...] Signed Date: 07/29/2025 14:57 ET Workstation ID: [id number] Transcribed By: Self Edit Transcribed Date: 07/29/2025 [...] Signed Date: 07/29/2025 14:57 ET Workstation ID: [id number] Transcribed By: Self Edit Transcribed Date: 07/29/2025 14:56 ET Dianna ROSAS IMG XR PROCEDURES Final Resul t * (ABNORMAL) Manual differential (07/29/2025 1:18 PM EST) Only the most recent of3 resultswithin the time period is included. Neutrophils % 53.0 % LAB HEMETOLOGY METHOD 07/29/2025 2:22 PM [facility] Lymphocytes % 30.0 % LAB HEMETOLOGY METHOD 07/29/2025 2:22 PM [facility] Monocytes % 13.0 % LAB HEMETOLOGY METHOD 07/29/2025 2:22 PM [facility] Eosinophils % 3.0 % LAB HEMETOLOGY METHOD 07/29/2025 2:22 PM [facility] Basophils % 1.0 % LAB HEMETOLOGY METHOD 07/29/2025 2:22 PM [facility] Neutrophils Absolute Manual 2.12 1.50 - 7.00 K/mcL LAB HEMETOLOGY METHOD 07/29/2025 2:22 PM [facility] Lymphocytes Absolute 1.20 1.00 - 5.00 K/mcL LAB HEMETOLOGY METHOD 07/29/2025 2:22 PM EST [facility] Monocytes Absolute Manual 0.52 0.20 - 1.00 K/mcL LAB HEMETOLOGY METHOD 07/29/2025 2:22 PM EST [facility] Eosinophils Absolute Manual 0.12 0.00 - 0.50 K/mcL LAB HEMETOLOGY METHOD 07/29/2025 2:22 PM [facility] Basophils Absolute Manual 0.04 0.00 - 0.20 K/mcL LAB HEMETOLOGY METHOD 07/29/2025 2:22 PM [facility] Rbc Morphology Present(A ) Consistent with indices, Normal for [place] LAB HEMETOLOGY METHOD 07/29/2025 2:22 PM [facility] Platelet Morphology - WAM Normal Normal LAB HEMETOLOGY METHOD 07/29/2025 2:22 PM [facility] Ovalocytes Present 5 - 10%(A) (none) LAB HEMETOLOGY METHOD 07/29/2025 2:22 PM [facility] Schistocytes Present 1+(A) (none) 07/29/2025 2:22 PM [facility] Blood Venous blood specimen / Unknown Venipuncture / Unknown 07/29/2025 1:18 PM EST 07/29/2025 1:32 PM EST Carmen Felix MD LAB BLOOD ORDERABLE S Final Result [facility] [address] [place] [address], * (ABNORMAL) Lipid panel with reflex to [...] ROSAS LAB BLOOD ORDERABLES Final Resul t [facility] [address] [place] [address], [place] [phone] * (ABNORMAL) Hemoglobin A1c (01/19/2025 3:51 AM [...] ROSAS LAB BLOOD ORDERABLES Final Resul t [facility] [address] [place] [address], * COLONOSCOPY Anesthesia - MAC; [facility] ENDOSCOPY (12/17/2024 10:44 AM EDT) Anatomical Region Laterality Modality Endoscopy 12/17/2024 10:2 8 AM EDT Impressions 12/17/2024 10:46 AM EDT - Patent [id number] ileo-colonic anastomosis, characterized by healthy appearing mucosa. - Diverticulosis in the sigmoid colon. - Internal hemorrhoids. - The examination was otherwise normal. - No specimens collected. Recommendation: - Discharge patient to home. - Repeat colonoscopy in 5 years for surveillance. Narrative 12/17/2024 10:46 AM EDT [facility] Patient Name: Corin Alvarenga Procedure [...] verified by the physician, the nurse, the milk drying machine operator and the park maintenance technician in the pre-procedure area in the [...] normal. There was evidence of a prior [id number] ileo-colonic anastomosis in the ascending colon. This [...] neoplasm of large intestine CPT copyright 2020 [employer] [employer]. All rights reserved. The codes documented in this report are preliminary and upon apartment maintenance manager review may be revised to meet current compliance requirements. Valente Camarena MD 12/17/2024 10:46:21 AM This report has been signed electronically.Valente Camarena MD Number of Addenda: 0 Note Initiated On: 12/17/2024 10:28 AM Scope Withdrawal Time: 0 hours 6 minutes 55 seconds Scope In: 10:35:31 AM Scope Out: 10:45:39 AM Endoscopy Department at [facility] - [address] [place] [id number] Procedure Note Valente Camarena MD - 12/17/2024 [facility] Patient Name: Corin Alvarenga Procedure [...] the physician, the nurse, theanesthetist and the park maintenance technician in the pre-procedure area in the [...] normal. There was evidence of a prior [id number] ileo-colonic anastomosis in the ascending colon.This was [...] malignantneoplasm of large intestine CPT copyright 2020 [employer]. All rights reserved. The codes documented in this report are preliminary and upon apartment maintenance manager reviewmay be revised to meet current compliance requirements. Valente Camarena MD 12/17/2024 10:46:21 AM This report has been signed electronically.Valente Camarena MD Number of Addenda: 0 Note Initiated On: 12/17/2024 10:28 AM Scope Withdrawal Time: 0 hours 6 minutes 55 seconds Scope In: 10:35:31 AM Scope Out: 10:45:39 AM Endoscopy Department at [facility] - [address] [place] [phone] IMPRESSION: - Patent [id number] ileo-colonic anastomosis, characterized by healthy appearing mucosa. [...] currently active code status orders. Care Teams Quality Tech Relationship Specialty Start Date End Date Jung Carranza MD [address] [facility] [address] [place], [place] PCP - General Internal Medicine 12/08/18
--- OUTSIDE RECORDS SUMMARY | 2025-09-01 16:18 | XMS_ITS | Encounter Summary ---
Author Organization [facility] Address [address] [facility] [address] [place] [address] Phone Care Team Providers Care Fish And Wildlife Biologist Name Role Phone Hong Maddox MD Unavailable [phone] Pravin Landis MD Unavailable [phone] Johana Amador MD Unavailable [phone] Kym Carranza MD Primary Care Provide r Carmen Felix MD Unavailable [phone] Encounter Details Date Type Department Care Team (Late st Contact Info) Description 03/13/2022 Procedure Pass [facility], [facility], [place] [address] [facility], Floor L1 [place] [address] Social History Tobacco Use Types [...] Description 12/28/2025 1:20 PM EDT Office Visit [facility] [address] [place] [address] 3rd Floor, [address] [place] [address] Prince Freitas MD [address] [facility], [address] [place] [address] [email or web address] documented as of this encounter Visit Diagnoses Not on filedocumented in this encounter Care Teams Fish And Wildlife Biologist Relationship Specialty Start Date End Date Kym Carranza MD [address] [place] [address] PCP - General Internal Medicine 12/22/21 Hong Maddox MD [address] [place] [address] [email or web address] Historical LMR Provider 07/04/17 Pravin Landis MD [address] [place] [address] [email or web address] Primary Oncologist Medical Oncology 02/08/21 Johana Amador MD [address] [place] [address] Referring Physician Gastroenterology 03/27/21 Carmen Felix MD [address] [place] [phone] Ramos Medical Oncology 03/11/24 documented as of this encounter Additional Source Comments The information contained in this document represents components of the legal health record. It is not the complete legal health record.[facility]
--- OUTSIDE RECORDS SUMMARY | 2025-09-01 16:20 | XMS_ITS | Encounter Summary ---
Author Organization [facility] Address [address] [facility] [address] [place] [address] Phone Care Team Providers Care Salon Designer Name Role Phone Hong Maddox MD Unavailable [phone] Pravin Landis MD Unavailable [phone] Johana Aamdor MD Unavailable [phone] Kym Carranza MD Primary Care Provide r Carmen Felix MD Unavailable [phone] Encounter Details Date Type Department Care Team (Late st Contact Info) Description 05/28/2023 Procedure Pass [facility] [place] [address] [address] Social History Tobacco Use Types [...] Description 12/28/2025 1:20 PM EDT Office Visit [facility] [address] [place] [address] 3rd Floor, [address] [place] [address] Prince Freitas MD [address] [place] [address] documented as of this encounter Visit Diagnoses Not on filedocumented in this encounter Care Teams Salon Designer Relationship Specialty Start Date End Date Kym Carranza MD [address] [place] [address] PCP - General Internal Medicine 12/22/21 Hong Maddox MD [address] [address] [email or web address] Historical LMR Provider 07/04/17 Pravin Landis MD [address] [place] [address] [email or web address] Primary Oncologist Medical Oncology 02/08/21 Johana Amador MD [address] [address] Referring Physician Gastroenterology 03/27/21 Carmen Felix MD 271 [place] [phone] Ramos [email or web address] Medical Oncology 03/11/24 documented as of this encounter Additional Source Comments The information contained in this document represents components of the legal health record. It is not the complete legal health record.[facility]
--- OUTSIDE RECORDS SUMMARY | 2025-09-01 16:20 | XMS_ITS | Encounter Summary ---
Author Organization [facility] Address [address] [facility] [address] [place] [address] Phone Care Team Providers Care Chief Information Security Officer Name Role Phone Hong Maddox MD Unavailable [phone] Pravin Landis MD Unavailable [phone] Johana Amador MD Unavailable [phone] Kym Carranza MD Primary Care Provide r Carmen Felix MD Unavailable [phone] Encounter Details Date Type Department Care Team (Late st Contact Info) Description 05/28/2023 Procedure Pass [facility] [place] [address] [address] Social History Tobacco Use Types [...] Description 12/28/2025 1:20 PM EDT Office Visit [facility] [address] [place] [address] 3rd Floor, [address] [place] [address] Prince Freitas MD [address] [place] [address] [email or web address] documented as of this encounter Visit Diagnoses Not on filedocumented in this encounter Care Teams Chief Information Security Officer Relationship Specialty Start Date End Date Kym Carranza MD [address] [place] [address] PCP - General Internal Medicine 12/22/21 Hong Maddox MD [address] [address] [email or web address] Historical LMR Provider 07/04/17 Pravin Landis MD [address] [place] [address] [email or web address] Primary Oncologist Medical Oncology 02/08/21 Johana Amador MD [address] [address] Referring Physician Gastroenterology 03/27/21 Carmen Felix MD 271 [place] [phone] Ramos [email or web address] Medical Oncology 03/11/24 documented as of this encounter Additional Source Comments The information contained in this document represents components of the legal health record. It is not the complete legal health record.[facility]
--- OUTSIDE RECORDS SUMMARY | 2025-09-01 16:20 | XMS_ITS | Encounter Summary ---
Author Organization [facility] Address [address] [place] [address] Phone Care Team Providers Care Bio Medical Technician Name Role Phone Evangelist Gabriel MD Unavailable [phone] Vignesh Farias MD Unavailable [phone] Dixon Quiñones NP Unavailable [phone] Hong Maddox MD Unavailable [phone] Kym Carranza MD Primary Care Provide r Self-Referred, Patient Unavailable Unavailab Pravin Leung MD Unavailable [phone] Johana Amador MD Unavailable [phone] Johana Amador MD Primary Care Provid er Kym Carranza MD Primary Care Provide r Carmen Felix MD Unavailable [phone] Encounter Details Date Type Department Care Team (Late st Contact Info) Description 02/06/2021 Procedure Pass [facility], [address] [phone] Social History Tobacco Use Types Packs/Day Years [...] Description 12/28/2025 1:20 PM EDT Office Visit [facility] [address] [place] [address] 3rd [facility], [address] [place] [address] Prince Freitas MD [address] [place] [address] [email or web address] documented as of this encounter Visit Diagnoses Not on filedocumented in this encounter Care Teams Bio Medical Technician Relationship Specialty Start Date End Date Kym Carranza MD [address] [place] [address] PCP - General Internal Medicine 11/28/20 05/04/21 Johana Amador MD [address] [place] [address] PCP - General Gastroenterology 05/05/21 12/21/21 Kym Carranza MD [address] [place] [address] PCP - General Internal Medicine 12/22/21 Evangelist Gabriel MD [address] [place] [address] [email or web address] Historical LMR Provider 07/04/17 09/23/21 Vignesh Farias MD [address] [place] [address] [email or web address] Historical LMR Provider 07/04/17 09/23/21 Dixon Quiñones, ELVIRA [address] [place] [address] [address] Historical LMR Provider 07/04/17 2 Hong Maddox MD [address] [place] [address] [email or web address] Historical LMR Provider 07/04/17 Self-Referred, Patient Referring Physician 11/28/20 Pravin Landis MD [address] [place] [address] [email or web address] Primary Oncologist Medical Oncology 02/08/21 Jhoana Amador MD [address] [place] [address] Referring Physician Gastroenterology 03/27/21 Carmen Felix MD [address] [place] [phone] Ramos [email or web address] Medical Oncology 03/11/24 documented as of this encounter Additional Source Comments The information contained in this document represents components of the legal health record. It is not the complete legal health record.[facility]
--- OUTSIDE RECORDS SUMMARY | 2025-09-01 16:20 | XMS_ITS | Clinical Summary ---
Author Organization [facility] Address [address] [address] Phone Care Team Providers Care Director Field Services Name Role Phone Hong Maddox MD Unavailable [phone] Pravin Landis MD Unavailable [phone] Johana Amador MD Unavailable [phone] Kym Carranza MD Primary Care Provide r Carmen Felix MD Unavailable [phone] Allergies Active Allergy Reactions Criticality Noted Date [...] (COPD) 09/2020 Coronary artery disease invo lving [place] coronary artery of [place] heart without angina pectoris 11/11/2017 Overview (04/12/2020): 2000 PCI BMS LAD 2001 CATH EF 40 NONOBST 2016 NUKE ANT TN; EF 40-45 07/2019 ECHO EF 50-55%; DD1; 11/2019 NUKE ANT TN EF 41% Assessment & Plan (09/13/2020 2:48 [...] EST): As of the echocardiogram done at [facility] this is unchanged. Ejection fraction remains [...] Type Department Care Team Description 07/06/2025 Refill [facility] [address] Floor, [address] [place] [address] Mary Anne Nixon CNP Medication Refill 06/28/2025 1:40 PM EDT Office Visit [facility] [address] Floor, [address] [place] [address] Prince Freitas MD Coronary artery disease of [place] artery of [place] heart with stable angina pectoris (Primary Dx); Essential hypertension; Hyperlipidemia, unspecified hyperlipidemia type 06/14/2025 12:26 PM EDT - 06/14/2025 11:59 PM EDT Hospital Encounter [facility] [address] [place] [address] Prince Freitas MD Discharge Disposition: Home or Self Care 12/29/2024 Procedure Pass [facility] [address] [place] [address] from Last 3 Months Family History Medical [...] Description 12/28/2025 1:20 PM EDT Office Visit [facility] [address] [place] [address] 3rd Floor, [address] [place], [place] [phone] Prince Freitas MD [address] [facility], [address] [place] [address] [email or web address] Health Maintenance Due Date Last Done Comments [...] this topic Medical Devices Implanted Type Area Final Assembly Inspector Device Identifier Shelf Expiration Date Model / [...] inferior. Other segments could not be evaluated. Prince Freitas MD CV ECHO ORDERABLES Final Resu lt * ENDOSCOPY, COLON (01/04/2022 2:42 PM EDT) 01/04/2022 2:42 PM EDT Narrative Transcriptions Mila Aldridge MD, MPH - 01/04/2022 2:42 PM EDT [facility] Gastroenterology Patient Name: Corin Alvarenga [...] HEMOGLOBIN A1C 7.7(H) 4.2 - 5.6 % [facility] Comment: HbA1c levels [...] 3:47 AM EDT 12/21/2020 4:25 AM EDT us Jose Navarro PA-C LAB BLOOD BKR ORDERABLES Final Result Performing Organization Address City/State/[facility] Co de Phone Number [facility] [address] [place] [address] from Last 3 Months or Most Recently Relevant to Health Maintenance Insurance [facility] MEDICARE REPLACEMENT [facility] MEDICARE REPLACEMENT [facility] MEDICARE REPLACEMENT [facility] MEDICARE REPLACEMENT [facility] MEDICARE REPLACEMENT [facility] MEDICARE REPLACEMENT Advance Directives For more information, please contact: [phone] (9AM - 5PM [facility], Saturday-Saturday) * Full Code (Latest Code Status on File) Date Activated Date Inactivated Comments 12/20/2020 6:12 PM Question Answer Comments Code Status Confirmed With: Patient * Full Code Date Activated Date Inactivated Comments 12/20/2020 10:44 AM 12/20/2020 6:12 PM Question Answer Comments Code Status Confirmed With: Patient Care Teams Director Field Services Relationship Specialty Start Date End Date Kym Carranza MD [address] [place] [address] PCP - General Internal Medicine 12/22/21 Hong Maddox MD [address] [place] [address] [email or web address] Historical LMR Provider 07/04/17 Pravin Landis MD [address] [place] [address] [email or web address] Primary Oncologist Medical Oncology 02/08/21 Johana Amador MD [address] [place] [address] Referring Physician Gastroenterology 03/27/21 Carmen Felix MD [address] [place] [phone] Ramos [email or web address] Medical Oncology 03/11/24 Additional Source Comments The information contained in this document represents components of the legal health record. It is not the complete legal health record.[facility]
--- OUTSIDE RECORDS SUMMARY | 2025-09-01 16:20 | XMS_ITS | Encounter Summary ---
Author Organization [facility] Address [address] [place] [address] Phone Care Team Providers Care Tow Motor Driver Name Role Phone Evangelist Gabriel MD Unavailable [phone] Vignesh Farias MD Unavailable [phone] Dixon Quiñones NP Unavailable [phone] Hong Maddox MD Unavailable [phone] Kym Carranza MD Primary Care Provide r Self-Referred, Patient Unavailable Unavailab Pravin Leung MD Unavailable [phone] Johana Amador MD Unavailable [phone] Johana Amador MD Primary Care Provid er Kym Carranza MD Primary Care Provide r Carmen Felix MD Unavailable [phone] Encounter Details Date Type Department Care Team (Late st Contact Info) Description 02/21/2021 Procedure Pass [facility], Ct Scan - [address] [phone] Social History Tobacco Use Types Packs/Day Years [...] Description 12/28/2025 1:20 PM EDT Office Visit [facility] [address] [place] [address] 3rd Floor, [address] [place] [address] Prince Freitas MD [address] [place] [address] documented as of this encounter Visit Diagnoses Not on filedocumented in this encounter Care Teams Tow Motor Driver Relationship Specialty Start Date End Date Kym Carranza MD [address] [place] [address] PCP - General Internal Medicine 11/28/20 05/04/21 Johana Amador MD [address] [place] [address] PCP - General Gastroenterology 05/05/21 12/21/21 Kym Carranza MD [address] [place] [address] PCP - General Internal Medicine 12/22/21 Evangelist Gabriel MD [address] [place] [address] Historical LMR Provider 07/04/17 09/23/21 Vignesh Farias MD [address] [place] [address] [email or web address] Historical LMR Provider 07/04/17 09/23/21 Dixon Quiñones NP [address] [place] [address] [phone] Historical LMR Provider 07/04/17 2 Hong Maddox MD [address] [place] [address] [email or web address] Historical LMR Provider 07/04/17 Self-Referred, Patient Referring Physician 11/28/20 Pravin Landis MD [address] [place] [address] [email or web address] Primary Oncologist Medical Oncology 02/08/21 Johana Amador MD [address] [address] Referring Physician Gastroenterology 03/27/21 Carmen Felix MD 271 [place] [phone] Ramos [email or web address] Medical Oncology 03/11/24 documented as of this encounter Additional Source Comments The information contained in this document represents components of the legal health record. It is not the complete legal health record.[facility]
--- OUTSIDE RECORDS SUMMARY | 2025-09-01 16:21 | XMS_ITS | Encounter Summary ---
Author Organization [facility] Address [address] [place] [address] Phone Care Team Providers Care Residential Team Leader Name Role Phone Evangelist Gabriel MD Unavailable [phone] Vignesh Farias MD Unavailable [phone] Dixon Quiñones NP Unavailable [phone] Hong Maddox MD Unavailable [phone] Kym Carranza MD Primary Care Provide r Self-Referred, Patient Unavailable Unavailab Pravin Leung MD Unavailable [phone] Johana Amador MD Unavailable [phone] Johana Amador MD Primary Care Provid er Kym Carranza MD Primary Care Provide r Carmen Felix MD Unavailable [phone] Encounter Details Date Type Department Care Team (Late st Contact Info) Description 02/10/2021 Ancillary Orders [facility],Outside Imaging [address] [place], [place] [phone] System, Provider Not In, [facility] [employer] [address] [address] Social History Tobacco Use Types Packs/Day Years [...] Description 12/28/2025 1:20 PM EDT Office Visit [facility] [address] [place] [address] 3rd Floor, [address] [place] [address] Prince Freitas MD 22 [facility], [address] [place] [address] [email or web address] documented as of this encounter Results * CT Abdomen/Pelvis Outside (No Interpretation) (12/02/2020 12:00 AM EDT) Narrative SYSTEMGENERATED, DOCUMENTATION - 02/10/2021 10:32 AM EDT This study is for PACS storage only and not for interpretation. us Provider Not In System PhD IMG OUTSIDE IMAGING W /OUT INTERPRETATION Final Result documented in this encounter Visit Diagnoses Not on filedocumented in this encounter Care Teams Residential Team Leader Relationship Specialty Start Date End Date Kym Carranza MD [address] [place] [address] 1 [place] [address] PCP - General Internal Medicine 11/28/20 05/04/21 Johana Amador MD [address] [place] [address] PCP - General Gastroenterology 05/05/21 12/21/21 Kym Carranza MD [address] [place] [address] [address] [place] [address] PCP - General Internal Medicine 12/22/21 Evangelist Gabriel MD 22 [facility], [address] [address] [email or web address] Historical LMR Provider 07/04/17 09/23/21 Vignesh Farias MD [address] [place] [address] [email or web address] Historical LMR Provider 07/04/17 09/23/21 Dixon Quiñones, ELVIRA [address] [place] [address] [address] Historical LMR Provider 07/04/17 2 Hong Maddox MD [address] [place] [address] [email or web address] Historical LMR Provider 07/04/17 Self-Referred, Patient Referring Physician 11/28/20 Pravin Landis MD [address] [place] [address] [email or web address] Primary Oncologist Medical Oncology 02/08/21 Johana Amador MD [address] [address] Referring Physician Gastroenterology 03/27/21 Carmen Felix MD [address] [place] [phone] Ramos [email or web address] Medical Oncology 03/11/24 documented as of this encounter Additional Source Comments The information contained in this document represents components of the legal health record. It is not the complete legal health record.[facility]
--- OUTSIDE RECORDS SUMMARY | 2025-09-01 16:21 | XMS_ITS | Encounter Summary ---
Author Organization [facility] Address [address] [facility] [address] [place] [address] Phone Care Team Providers Care Vendor Analyst Name Role Phone Hong Maddox MD Unavailable [phone] Pravin Landis MD Unavailable [phone] Johana Amador MD Unavailable [phone] Kym Carranza MD Primary Care Provide r Carmen Felix MD Unavailable [phone] Encounter Details Date Type Department Care Team (Late st Contact Info) Description 12/29/2024 Procedure Pass [facility] [address] [place] [id number] Social History Tobacco Use Types Packs/Day Years [...] Description 12/28/2025 1:20 PM EDT Office Visit [facility] [address] [place] [address] 3rd Floor, [address] [place] [address] Prince Freitas MD [address] [place] [address], [address] [place] [address] [email or web address] documented as of this encounter Visit Diagnoses Not on filedocumented in this encounter Care Teams Vendor Analyst Relationship Specialty Start Date End Date Kym Carranza MD [address] [place] [address] PCP - General Internal Medicine 12/22/21 Hong Maddox MD [address] [place] [address] [email or web address] Historical LMR Provider 07/04/17 Pravin Landis MD [address] [place] [address] [email or web address] Primary Oncologist Medical Oncology 02/08/21 Johana Amador MD [address] [address] Referring Physician Gastroenterology 03/27/21 Carmen Felix MD 271 [place] [phone] Ramos [email or web address] 03/11/24 documented as of this encounter Additional Source Comments The information contained in this document represents components of the legal health record. It is not the complete legal health record.[facility]
== END 2025-09-01 13:50 | disposition home or self-care (01) ==
LOC: HO.ENCR 12:25
PROVIDERS: PCP Internal Medicine; Visit Provider Registered Nurse Diabetes Educator
DX: E11.42 Type 2 diabetes mellitus with diabetic polyneuropathy (principal)
CPT/HCPCS: 99499

== ENCOUNTER 2025-09-03 14:23 | Outpatient (AMB) | payer OTHER, SELFPAY ==
--- OUTSIDE RECORDS SUMMARY | 2025-09-03 10:10 | XMS_ITS | Encounter Summary ---
Author Organization [facility] [place] [address] Care Team Providers Care Flat Breakdown Processor Name Role Phone Jung Carranza MD Primary Care Provider [phone] Encounter Details Date Type Department Care Team (Late st Contact Info) Description 09/03/2025 10:10 AM EST Lab Draw Station - [facility] [address] [facility] [address] [place] [address] Malignant neoplasm of tail of pancreas ([facility]/HCC V24, [facility]/HCC V28) Social History Tobacco Use Types Packs/Day [...] Info) Description 09/06/2025 8:30 AM EST Appointment [facility] Infusion Center [address] [place] [phone] 09/13/2025 11:00 AM EST Office Visit [facility] Hematology Oncology [address] [place] [phone] Carmen Felix MD [address] [place] [address] documented as of this encounter Procedures Procedure Name Priority Date/Time Associated Diagnosis Comments CBC WITH AUTO DIFFERENTIAL Routine 09/03/2025 10:07 AM EST Malignant neoplasm of tail of pancreas (CMS/HCC V24, CMS/HCC V28) CBC AND DIFFERENTIAL Routine 09/03/2025 10:07 AM EST Malignant neoplasm of tail of pancreas (CMS/HCC V24, CMS/HCC V28) COMPREHENSIVE METABOLIC PANEL Routine 09/03/2025 10:07 AM EST Malignant neoplasm of tail of pancreas (CMS/HCC V24, CMS/HCC V28) documented in this encounter Results * (ABNORMAL) CBC auto differential (09/03/2025 10:07 AM EST) [facility] WBC 4.3(L) 4.8 - 10.8 K/mcL LAB HEMETOLOGY METHOD 09/03/2025 12:52 PM [facility] LAB RBC 4.10 3.80 - 4.80 M/mcL LAB HEMETOLOGY METHOD 09/03/2025 12:52 PM [facility] LAB Hemoglobin 12.8 11.5 - 16.0 g/dL LAB HEMETOLOGY METHOD 09/03/2025 12:52 PM [facility] LAB Hematocrit 38.9 35.0 - 47.0 % LAB HEMETOLOGY METHOD 09/03/2025 12:52 PM [facility] LAB MCV 95.8 79.0 - 98.0 FL LAB HEMETOLOGY METHOD 09/03/2025 12:52 PM [facility] LAB MCH 31.5 27.0 - 32.0 pcg LAB HEMETOLOGY METHOD 09/03/2025 12:52 PM [facility] LAB MCHC 32.9 32.0 - 37.0 g/dL LAB HEMETOLOGY METHOD 09/03/2025 12:52 PM [facility] LAB RDW 13.4 11.0 - 15.0 % LAB HEMETOLOGY METHOD 09/03/2025 12:52 PM [facility] LAB Platelets 353 130 - 400 K/[facility] LAB HEMETOLOGY METHOD 09/03/2025 12:52 PM [facility] LAB MPV 10.8 7.0 - 11.0 FL LAB HEMETOLOGY METHOD 09/03/2025 12:52 PM [facility] LAB NRBC 1.2(H) <1.0 % LAB HEMETOLOGY METHOD 09/03/2025 12:52 PM [facility] LAB NRBC Absolute 0.05 <0.10 K/[facility] LAB HEMETOLOGY METHOD 09/03/2025 12:52 PM [facility] LAB Neutrophils Relative 51.1 % LAB HEMETOLOGY METHOD 09/03/2025 12:52 PM [facility] Lymphocytes Relative 32.9 % LAB HEMETOLOGY METHOD 09/03/2025 12:52 PM [facility] Monocytes Relative 12.7 % LAB HEMETOLOGY METHOD 09/03/2025 12:52 PM [facility] Eosinophils Relative 2.4 % LAB HEMETOLOGY METHOD 09/03/2025 12:52 PM [facility] Basophils Relative 0.7 % LAB HEMETOLOGY METHOD 09/03/2025 12:52 PM [facility] Immature Granulocytes Relative 0.2 % LAB HEMETOLOGY METHOD 09/03/2025 12:52 PM [facility] LAB Neutrophils Absolute 2.17 1.50 - 7.00 K/mcL LAB HEMETOLOGY METHOD 09/03/2025 12:52 PM [facility] Lymphocytes Absolute 1.40 1.00 - 5.00 K/mcL LAB HEMETOLOGY METHOD 09/03/2025 12:52 PM [facility] Monocytes Absolute 0.54 0.20 - 1.00 K/mcL LAB HEMETOLOGY METHOD 09/03/2025 12:52 PM [facility] Eosinophils Absolute 0.10 0.00 - 0.50 K/mcL LAB HEMETOLOGY METHOD 09/03/2025 12:52 PM [facility] Basophils Absolute 0.03 0.00 - 0.20 K/mcL LAB HEMETOLOGY METHOD 09/03/2025 12:52 PM [facility] Immature Granulocytes Absolute 0.01 0.00 - 0.03 K/mcL LAB HEMETOLOGY METHOD 09/03/2025 12:52 PM [facility] Blood Venous blood specimen / Unknown Venipuncture / Unknown 09/03/2025 10:07 AM EST 09/03/2025 12:18 PM EST Carmen Felix MD LAB BLOOD ORDERABLE S Final Result [facility] [address] [place] [address], [place] [phone] * (ABNORMAL) Comprehensive metabolic panel (09/03/2025 10:07 AM EST) Sodium 142 133 - 145 mmol/L 09/03/2025 1:18 PM [facility] Potassium 4.3 3.5 - 5.5 mmol/L 09/03/2025 1:18 PM [facility] Chloride 104 96 - 110 mmol/L 09/03/2025 1:18 PM [facility] CO2 26 21 - 32 mmol/L 09/03/2025 1:18 PM [facility] Anion Gap 12(H) 3 - 11 09/03/2025 1:18 PM [facility] Glucose 254(H) 70 - 100 mg/dL 09/03/2025 1:18 PM [facility] BUN 17 5 - 25 mg/dL 09/03/2025 1:18 PM [facility] Creatinine 1.14(H) 0.50 - 1.10 mg/dL 09/03/2025 1:18 PM [facility] eGFR 50(L) >=60 mL/min/1. 73m2 09/03/2025 1:18 PM [facility] Comment:Calculation based on the Chronic Kidney Disease Epidemiology Collaboration (CKD-EPI) equation refit without adjustment for race. BUN/Creatinine Ratio 14.9 09/03/2025 1:18 PM [facility] Calcium 8.7 8.5 - 10.5 mg/dL 09/03/2025 1:18 PM [facility] AST (SGOT) 118(H) 10 - 42 unit/L 09/03/2025 1:18 PM [facility] Comment:Results verified by repeat testing ALT (SGPT) 114(H) 10 - 60 unit/L 09/03/2025 1:18 PM [facility] Comment:Results verified by repeat testing Alkaline Phosphatase 75 42 - 121 unit/L 09/03/2025 1:18 PM [facility] Total Protein 5.9(L) 6.0 - 8.0 g/dL 09/03/2025 1:18 PM [facility] Albumin 3.8 3.2 - 5.0 g/dL 09/03/2025 1:18 PM [facility] Total Bilirubin 0.8 0.0 - 1.4 mg/dL 09/03/2025 1:18 PM [facility] Blood Venous blood specimen / Unknown Venipuncture / Unknown 09/03/2025 10:07 AM EST 09/03/2025 12:19 PM EST Subramony Isidro STORY LAB BLOOD ORDERABLE S Final Result Performing Organization Address City/State/[facility] Co de Phone Number [facility] [address] [place] [address], documented in this encounter Visit Diagnoses Diagnosis Malignant neoplasm of tail of pancreas (CMS/HCC V24, CMS/HCC V28) Malignant neoplasm of tail of pancreas documented in this encounter Care Teams Flat Breakdown Processor Relationship Specialty Start Date End Date Jung Carranza MD [address] [place] [address] [address] [place], [place] PCP - General Internal Medicine 12/08/18 documented as of this encounter
--- NOTE | 2025-09-03 14:27 | A.OFFVIS_ITS ---
Vital Signs 09/03/25 14:32 Height 5 ft 4 in Weight 165 lb 5.547 oz BMI 28.4 BP 106/60 Blood Pressure Location Rt brachial Position Sitting Pulse 111 H Pulse Source Pulse Oximeter Pulse Oximetry (%) 94 Oxygen Delivery Method Room Air Intake Visit Reasons: Type II diabetes Intake Note: Patient present today to follow up on Type 2 Diabetes Mellitus. Last Diabetic Eye exam: Within the year Last Podiatry Visit: Does not see a Clinical Athletic Instructor Random Glucose: 188 mg/dL HgA1C: 10.5% 09/03/2025 Mothers Helper Required: No Accompanied by: Self / Same As Patient Allergies latex Allergy (Severe, Verified 09/03/25 14:33) Swelling levofloxacin (Levaquin) Allergy (Severe, Verified 09/03/25 14:33) Swelling Aspirin Allergy (Severe, Uncoded 09/03/25 14:33) Swelling Medication List - Last Reconciled 09/03/25 by RALPH Ng acetaminophen-codeine 300-30 mg 1 tab PO BID PRN 10 days acetone (urine) test (Ketone Urine Test strips) As directed albuterol sulfate 90 mcg/actuation 2 inhalations inhalation Q6H PRN 30 days blood sugar diagnostic (Contour Next Test Strips) As directed to test glucose three times daily. blood-glucose meter (Contour Next Gen Meter) As directed blood-glucose sensor (Dexcom G7 Sensor device) apply new sensor every 10 days as directed blood-glucose,rotary helper,cont (Dexcom G7 Agricultural Service Worker) As directed to monitor blood continuously zwmozyaovx-tlqnbumi-qlcyvlwsku 160-9-4.8 mcg/actuation (Breztri Aerosphere) 2 inhalations inhalation BID 30 days wtutqfwztm-nxztqlny-ooyfvkbojc 160-9-4.8 mcg/actuation (Breztri Aerosphere) 2 inhalations inhalation BID calcium carbonate-vitamin D3 600 mg-5 mcg (200 unit) 1 tab PO DAILY cetirizine (Zyrtec) 10 mg PO BID PRN cholecalciferol (vitamin D3) (Vitamin D3) 50 mcg PO DAILY clopidogrel 75 mg PO QPM ezetimibe 10 mg PO DAILY famotidine (Pepcid) 40 mg PO BEDTIME PRN gabapentin 300 mg PO DAILY PRN glucose (Dex4 Glucose) 16 grams (4 x 4 gram) PO Q15M PRN insulin degludec (Tresiba FlexTouch U-200 insulin) 28 units subcut BEDTIME insulin lispro <120 0 units 121-150 10 units 151-200 12 unit 201-250 14 units 251-300 16 units 301-350 18 units 351-400 20 units >400 22 units and call the office lancets (Microlet Lancet) As directed to check blood glucose three times daily. loperamide (Imodium A-D) 2 mg PO BID lorazepam 0.5 mg PO BID PRN multivitamin 1 tab PO DAILY nitroglycerin 0.4 mg sublingual DIRECTED PRN nystatin (Nyamyc) 1 appl topical BID pen needle, diabetic As directed 4 times daily rosuvastatin 40 mg PO BEDTIME vortioxetine 10 mg PO BEDTIME zolpidem (Ambien) 10 mg PO BEDTIME 30 days HPI Comments Details: This is a 75-year-old female with a past medical history of type 2 diabetes, CHF , CAD, hiatal hernia with GERD, lung cancer, stage II adenocarcinoma of the colon, carotid artery stenosis, COPD, pulmonary nodules and recently diagnosed pancreatic cancer s/p tumor resection and splenectomy in December presenting for diabetic management. She was diagnosed with diabetes about 5 years ago. Her mother had type 2 diabetes. Surgeon -Dr. Medrano Oncologist- Dr. Ray. Patient says she had pancreatic mass resected and spleen removed on 01/07/2025 at [facility]. Patient received chemotherapy infusion every other week with steroids. She has fatigue, increased appetite, brain fog, neuropathy. Hemoglobin A1c 10.5% up from 9.0%. Reviewed Dexcom data G SC 10.1% 63% very high 21% high 16% in range 0% low My interpretation is she has hyperglycemia throughout 24 hours. Current medication regimen: Tresiba to 20 units nightly. Lispro sliding scale and administer 15 minutes before meals: <120 0 units 121-150 10 units 151-200 12 unit 201-250 14 units 251-300 16 units 301-350 18 units 351-400 20 units >400 22 units and call the office Patient says due to brain fog she has been missing doses of Tresiba and lispro. Past medications: Mounjaro was discontinued due to risk of pancreatitis. Rybelsus was discontinued due to abdominal pain in the past. She never tried metformin because she was concerned about potential side effects due to chronic diarrhea. Jardiance discontinued due to yeast infections. Patient still has a another box of Tresiba, but after this we will need to switch to Toujeo or Lantus due to insurance formulary change in 2025. Hypoglycemia symptoms: none Hyperglycemia symptoms: fatigue Eye exam: [facility], no complications per patient last exam Microvascular complications: neuropathy, nephropathy (renal insufficiency) Macrovascular complications: CAD and PAD (Dr. Freitas) Hyperlipidemia is treated with Zetia and rosuvastatin. ROS: Constitutional: Interval weight gain. No weight loss. Denies fevers and chills. Respiratory: No shortness of breath Cardiovascular: No chest pain Neurologic: No headache, dizziness, syncope Endocrine: see HPI Physical exam: Constitutional: Alert, in no distress. Neck: Supple, Full range of motion. No lymphadenopathy. No palpable thyroid masses. Respiratory: Clear to auscultation. Cardiovascular: S1 S2 regular. No murmurs. Psychiatric: Normal affect [facility] Medical History (Updated 06/03/25 @ 21:06 by RALPH Ng) Decreased GFR Pancreatic cancer CHF (congestive heart failure) Renal insufficiency Peripheral sensory neuropathy due to type 2 diabetes mellitus Type II diabetes mellitus History of transfusion of packed red blood cells Migraine History of placement of stent in LAD coronary artery Osteoporosis Hyperlipidemia Depression CAD (coronary artery disease) Sleep apnea On anticoagulant therapy TIA (transient ischemic attack) Myocardial infarction Obesity Diabetes Dyslipidemia History of colon cancer HTN (hypertension) Carotid stenosis, asymptomatic GERD (gastroesophageal reflux disease) Colon cancer Pre-op chest exam Lung cancer Pulmonary nodules Dyspnea COPD (chronic obstructive pulmonary disease) Pulmonary nodule Surgical History History of surgery History of incisional hernia repair (07/06/24) Hx of tonsillectomy Hx of tubal ligation History of dental surgery Hx of cardiac catheterization History of lobectomy of lung Family History Mother Stroke Diabetes Father Alcoholic cirrhosis of liver Social History Household Members: None Housing: House Are you a primary child care associate teacher to a significant other at home: No Do you presently have visiting nurse or other home services: No Patient Tobacco Use Status: Former Tobacco user Tobacco use type: Cigarette Years Smoked: 20+ Years Second Hand Smoke Exposure: No service: No Physical Exam Vital Signs: BMI result Body Mass Index 28.4 Office Procedures Glucose Monitoring Details Details: See [facility] [address] - Glucose monitoring, continuous-physician I&R Procedure code (CPT) selection complete Results AMB Hemoglobin A1c AMB Hemoglobin A1c 10.5 % Last Edit by SHIRA Robins on 09/03/25 14:53 Results Reviewed Results Reviewed: Laboratory Tests 05/06/24 05/13/24 23:31 11:56 Plt Count 241 Creatinine 1.13 1.10 Estimated GFR 47 49 AST 17 ALT 21 Laboratory Tests 01/26/25 02/16/25 13:14 10:48 Creatinine 1.16 Estimated GFR 46 Hgb A1c (Clinic) 9.1 H C-Peptide 5.09 H Triglycerides 159 H Cholesterol 136 LDL Cholesterol, Calc 58 HDL Cholesterol 47 TSH 2.51 [facility] Medical lab report 05/24/2025 Creatinine 1.17 GFR 49 AST 42 ALT 66 White blood cell 5.8 Red blood cell 4.6 Hemoglobin 13.5 Hematocrit 41.8 Platelets 349 Assessment & Plan Assessment & Plan (1) Type II diabetes mellitus: Code(s): E11.9 - Type 2 diabetes mellitus without complications Category: Medical Qualifiers: Diabetes mellitus equipment operator intermodal yard insulin use: without care home use Diabetes mellitus complication status: with kidney complications Diabetes mellitus complication detail: with nephropathy Qualified Code(s): E11.21 - Type 2 diabetes mellitus with diabetic nephropathy (2) Pancreatic cancer: Code(s): C25.9 - Malignant neoplasm of pancreas, unspecified Category: Medical Plan In summary this is a 75-year-old female with type 2 diabetes with micro and macrovascular complications and pancreatic cancer who underwent tumor resection and splenectomy and is currently on chemotherapy and steroids. Target A1c <8%. She has polyphasia with steroids. Patient receiving chemotherapy infusion every other week. She has 3 weeks left. Increase Tresiba to 28 units nightly. Lispro sliding scale and administer 15 minutes before meals: <120 0 units 121-150 10 units 151-200 12 unit 201-250 14 units 251-300 16 units 301-350 18 units 351-400 20 units >400 22 units and call the office Offered for pt to see endo for follow up due to rising A1C. Patient felt this was related to missing some doses of her insulin secondary to brain fog, and she would like to adjust the Tresiba and follow up in a few weeks to see if this improves before seeing another provider. If you experience low blood sugar (under 70), treat this by eating a chewable fruit candy like skittles or jelly beans (about 8 pieces), 4 ounces (1/2 cup) of fruit juice (not diet), 1 tablespoon of honey or 4 glucose tablets. If your blood sugar is under 50, take double the amount of one of the above. Recheck your blood sugar in 15 minutes. Remain off GLP 1 due to risk of pancreatitis. Follow up in 3 weeks. Orders: Orders AMB Hemoglobin A1c Today E11.21 - Type 2 diabetes mellitus with diabetic nephropathy AMB Glucose Monitoring Today E11.9 - Type 2 diabetes mellitus without complications Patient Instructions: Increase Tresiba to 28 units nightly. Lispro sliding scale and administer 15 minutes before meals: <120 0 units 121-150 10 units 151-200 12 unit 201-250 14 units 251-300 16 units 301-350 18 units 351-400 20 units >400 22 units and call the office If you experience low blood sugar (under70), treat this by eating a chewable fruit candy like skittles or jelly beans (about 8 pieces), 4 ounces (1/2 cup) of fruit juice (not diet), 1 tablespoon of honey or 4 glucose tablets. If your blood sugar is under 50, take double the amount of one of the above. Recheck your blood sugar in 15 minutes. Coding Level of Care Code Est Pt Level 4 (12220) Diagnoses Type 2 diabetes mellitus with diabetic nephropathy, without long-term current use of insulin E11.21 Diabetes mellitus equipment operator intermodal yard insulin use: without care home use Diabetes mellitus complication status: with kidney complications Diabetes mellitus complication detail: with nephropathy Pancreatic cancer C25.9 CPT Codes Details - CPT: 51756 - Glucose monitoring, continuous-physician I&R ([id number])
[2025-09-03 14:32] VITALS: BP 106/60; PULSE 111; O2SAT 94; BMI 28.4
[2025-09-03 14:43] LABS: Glucose, Whole Blood 188 mg/dL (60-115)
--- OUTSIDE RECORDS SUMMARY | 2025-09-03 15:52 | XMS_ITS ---
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 Past Treatment and Therapy Plans No past plan information found. Lifetime Dose Tracking * Chemical Lifetime Dose Automatic Entry Manual Entr y Fluoro Time 1 minutes 1 minutes 0 minutes Air Kerma 7 mGy 7 mGy 0 mGy
--- OUTSIDE RECORDS SUMMARY | 2025-09-03 15:52 | XMS_ITS | Encounter Summary ---
Author Organization [facility] Address [address] [place] [address] Phone Care Team Providers Care Data Base Design Analyst Name Role Phone Evangelist Gabriel MD Unavailable [phone] Vignesh Farias MD Unavailable [phone] Dixon Quiñones NP Unavailable [phone] Hong Maddox MD Unavailable [phone] Kym Carranza MD Primary Care Provide r Self-Referred, Patient Unavailable Unavailab Pravin Leung MD Unavailable [phone] Johana Amador MD Unavailable [phone] Johana Amador MD Primary Care Provid er Kym Carranza MD Primary Care Provide r Carmen Felix MD Unavailable [phone] Encounter Details Date Type Department Care Team (Late st Contact Info) Description 12/20/2020 Procedure Pass [facility] Periop [address] [place], [place] [id number] Social History Tobacco Use Types Packs/Day Years [...] Upcoming Encounters Date Type Department Care Team ([facility] st Contact Info) Description 12/28/2025 1:20 PM EDT Office Visit [facility] [address] [place] [address] [address] Floor, [address] [place] [address] Prince Freitas MD [address] [place] [address] documented as of this encounter Visit Diagnoses Not on filedocumented in this encounter Care Teams Data Base Design Analyst Relationship Specialty Start Date End Date Kym Carranza MD [address] [place] [address] PCP - General Internal Medicine 11/28/20 05/04/21 Johana Amador MD [address] [place] [address] PCP - General Gastroenterology 05/05/21 12/21/21 Kym Carranza MD [address] [place] [address] PCP - General Internal Medicine 12/22/21 Evangelist Gabriel MD [address] [place] [address] Historical LMR Provider 07/04/17 09/23/21 Vignesh Farias MD [address] [place] [address] Historical LMR Provider 07/04/17 09/23/21 Dixon Quiñones NP [address] [place] [address] [address] Historical LMR Provider 07/04/17 2 Hong Maddox MD [address] [address] [email or web address] Historical LMR Provider 07/04/17 Self-Referred, Patient Referring Physician 11/28/20 Pravin Landis MD [address] [place] [address] [email or web address] Primary Oncologist Medical Oncology 02/08/21 Johana Amador MD [address] [address] Referring Physician Gastroenterology 03/27/21 Carmen Felix MD [address] [place] [id number] Ramos [email or web address] Medical Oncology 03/11/24 documented as of this encounter Additional Source Comments The information contained in this document represents components of the legal health record. It is not the complete legal health record.[facility]
--- OUTSIDE RECORDS SUMMARY | 2025-09-03 15:52 | XMS_ITS | Encounter Summary ---
Author Organization [facility] Address [address] [facility] [address] [place] [address] Phone Care Team Providers Care Catalyst Operator Chief Name Role Phone Hong Maddox MD Unavailable [phone] Pravin Landis MD Unavailable Johana Amador MD Unavailable [phone] Kym Carranza MD Primary Care Provide r Carmen Felix MD Unavailable [phone] Encounter Details Date Type Department Care Team (Late st Contact Info) Description 03/13/2022 Procedure Pass [facility], [facility] [address] [facility], [address] [place] [address] Social History Tobacco Use Types [...] Description 12/28/2025 1:20 PM EDT Office Visit [facility] [address] [place] [address] 3rd Floor, [address] [place] [address] Prince Freitas MD [address], [address] [place] [address] [email or web address] documented as of this encounter Visit Diagnoses Not on filedocumented in this encounter Care Teams Catalyst Operator Chief Relationship Specialty Start Date End Date Kym Carranza MD [address] [place] [address] PCP - General Internal Medicine 12/22/21 Hong Maddox MD [address] [place] [address] [email or web address] Historical LMR Provider 07/04/17 Pravin Landis MD [address] [place] [address] [email or web address] Primary Oncologist Medical Oncology 02/08/21 Johana Amador MD [address] [place] [address] Referring Physician Gastroenterology 03/27/21 Carmen Felix MD [address] [place] [phone] Ramos [email or web address] Medical Oncology 03/11/24 documented as of this encounter Additional Source Comments The information contained in this document represents components of the legal health record. It is not the complete legal health record.[facility]
--- OUTSIDE RECORDS SUMMARY | 2025-09-03 15:52 | XMS_ITS | Clinical Summary ---
Author Organization [facility] Prior to 02/13/[address] [place] [address] Care Team Providers Care Manager Fiber Name Role Phone Jung Carranza MD Primary Care Provider [phone]- [phone] Allergies Active Allergy Reactions Criticality Noted Date [...] age to complete this topic Care Teams Manager Fiber Relationship Specialty Start Date End Date Jung Carranza MD [address] [place] [address] PCP - General Internal Medicine 02/12/24
--- OUTSIDE RECORDS SUMMARY | 2025-09-03 15:52 | XMS_ITS | Clinical Summary ---
Author Organization [facility] Address [address] [place] [address] Phone Care Team Providers Care Casing Inspector Name Role Phone Jung Carranza MD Primary Care Provider [phone]- [phone] Allergies Active Allergy Reactions Criticality Noted Date [...] Encounters Date Type Department Care Team Description 09/03/2025 10:10 AM EST Lab Draw Station - [address] [phone] Malignant neoplasm of tail of pancreas (CMS/HCC V24, CMS/HCC V28) 08/26/2025 11:59 AM EST - 08/26/2025 11:59 PM EST Hospital Encounter [address] [phone] Elzbietaramonia-Iy Carmen subramanian MD Malignant neoplasm of ascending colon ([facility] V24, [facility] V28) (Primary Dx) Discharge Disposition: Home or Self Care 08/24/2025 8:14 AM EST - 08/24/2025 11:59 PM EST Hospital Encounter [address] [phone] Subramonia-Iy erCarmen MD Drug therapy (Primary Dx); Malignant neoplasm of tail of pancreas ([facility] V24, [facility] V28) Discharge Disposition: Home or Self Care 08/24/20[address] [phone] Cy Salguero LMSW 08/23/2025 10:05 AM EST Lab Draw Station - [address] [phone] Malignant neoplasm of tail of pancreas ([facility] V24, [facility] V28) 08/16/2025 10:45 AM EST Office Visit [facility] Hematology Oncology [address] [place] [phone] Subramonia-Iy erCarmen MD Malignant neoplasm of tail of pancreas ([facility]/HCC V24, [facility] V28) (Primary Dx); Chemotherapy-induced peripheral neuropathy ([facility] V24); Anxiety; Chemotherapy-induced fatigue; Age-related osteoporosis without current pathological fracture; Weight loss; Drug therapy 08/16/2025 9:27 AM EST - 08/16/2025 11:59 PM EST Hospital Encounter [address] [phone] Elzbietaramonia-Iy erCarmen MD Adenocarcinoma of lung, unspecified laterality ([facility]/HCC V24, [facility]/HCC V28) (Primary Dx); Malignant neoplasm of tail of pancreas ([facility]/HCC V24, [facility]/HCC V28) Discharge Disposition: Home or Self Care 08/11/2025 12:00 PM EST - 08/11/2025 11:59 PM EST Hospital Encounter [facility] [address] [place] [phone] Elzbietaramonia-Iy Carmen subramanian MD Malignant neoplasm of ascending colon (CMS/HCC V24, CMS/HCC V28) (Primary Dx); Malignant neoplasm of upper lobe of right lung (CMS/HCC V24, CMS/HCC V28); Family history of pancreatic cancer; Malignant neoplasm of tail of pancreas ([facility]/HCC V24, [facility]/HCC V28) Discharge Disposition: Home or Self Care 08/09/2025 8:16 AM EST - 08/09/2025 11:59 PM EST Hospital Encounter [facility] [address] [place] [phone] Subramonia-Iy er, MD Carmen Drug therapy (Primary Dx); Malignant neoplasm of tail of pancreas ([facility]/HCC V24, CMS/HCC V28) Discharge Disposition: Home or Self Care 08/06/2025 8:45 AM EST Lab Draw Station - [address] [phone] Malignant neoplasm of tail of pancreas ([facility] V24, [facility] V28); Drug therapy 08/06/2025 [facility] [address] [place] [phone] Nuria Muñoz RN 08/03/2025 [facility] [address] [place] [phone] Nuria Muñoz RN 08/02/2025 9:48 AM EST - 08/02/2025 11:59 PM EST Hospital Encounter [facility] [address] [place] [phone] Elzbietaramonia-Iy Carmen subramanian MD Malignant neoplasm of tail of pancreas ([facility]/HCC V24, [facility] V28) (Primary Dx) Discharge Disposition: Home or Self Care 08/02/2025 Telephone [facility] [address] [place] [phone] Nuria Muñoz RN 07/29/2025 2:15 PM EST - 07/29/2025 11:59 PM EST Hospital Encounter [facility] Xray [address] [place] [phone] Cough, unspecified type Discharge Disposition: Home or Self Care 07/29/2025 2:00 PM EST Office Visit [facility] Hemat[facility] Oncology [address] [place] [phone] Dianna Sommers PA Malignant neoplasm of tail of pancreas ([facility] V24, [facility] V28) (Primary Dx); Cough, unspecified type 07/29/2025 12:54 PM EST - 07/29/2025 11:59 PM EST Hospital Encounter [facility] [address] [place] [phone] Elzbietaramonia-Iy Carmen subramanian MD Malignant neoplasm of tail of pancreas ([facility] V24, [facility] V28) (Primary Dx); Drug therapy Discharge Disposition: Home or Self Care 07/26/2025 [facility] [address] [place] [phone] Sunshine Kimbrough, SHAWN 07/26/2025 [facility] [address] [place] [phone] Jessica Whitney, SHAWN 07/19/2025 3:15 PM EST Office Visit [facility] Oncology [address] [place] [phone] Subramonia-Iy Carmen subramanian MD Malignant neoplasm of tail of pancreas ([facility] V24, [facility] V28) (Primary Dx); Chemotherapy-induced peripheral neuropathy ([facility] V24); Anxiety; Chemotherapy-induced fatigue; Family history of pancreatic cancer; Pulmonary nodules; Malignant neoplasm of upper lobe of right lung ([facility] V24, CMS/HCC V28); Overlapping malignant neoplasm of colon (CMS/HCC V24, CMS/HCC V28) 07/19/2025 1:51 PM EST - 07/19/2025 11:59 PM EST Hospital Encounter [facility] [address] [place] [phone] Subramonia-Iy Carmen subramanian MD Malignant neoplasm of tail of pancreas (CMS/HCC V24, CMS/HCC V28) (Primary Dx); Malignant neoplasm of upper lobe of right lung (CMS/HCC V24, CMS/HCC V28) Discharge Disposition: Home or Self Care 07/15/2025 1:00 PM EDT - 07/15/2025 11:59 PM EDT Hospital Encounter [facility] [address] [place] [phone] Malignant neoplasm of ascending colon (CMS/HCC V24, CMS/HCC V28) (Primary Dx) Discharge Disposition: Home or Self Care 07/13/2025 8:15 AM EDT - 07/13/2025 11:59 PM EDT Hospital Encounter [facility] [address] [place] [phone] Subramonia-Iy erCarmen MD Drug therapy (Primary Dx); Malignant neoplasm of tail of pancreas (CMS/HCC V24, CMS/HCC V28) Discharge Disposition: Home or Self Care 07/01/2025 11:51 AM EDT - 07/01/2025 11:59 PM EDT Hospital Encounter [facility] [address] [place] [phone] Adenocarcinoma of right lung (CMS/HCC V24, CMS/HCC V28) (Primary Dx); Malignant neoplasm of ascending colon (CMS/HCC V24, CMS/HCC V28) Discharge Disposition: Home or Self Care 06/29/2025 8:27 AM EDT - 06/29/2025 11:59 PM EDT Hospital Encounter [facility] [address] [place] [phone] Subramonia-Iy erCarmen MD Malignant neoplasm of tail of pancreas ([facility] V24, [facility] V28) (Primary Dx) Discharge Disposition: Home or Self Care 06/21/2025 11:45 AM EDT Office Visit [facility] H[facility] Oncology [address] [place] [phone] Elzbietaramonia-Iy Carmen subramanian MD Adenocarcinoma of right lung ([facility] V24, [facility] V28) (Primary Dx); Chemotherapy-induced peripheral neuropathy ([facility] V24); Malignant neoplasm of tail of pancreas ([facility] V24, [facility] V28); Age-related osteoporosis without current pathological fracture; Chemotherapy-induced fatigue; Anxiety 06/17/2025 11:54 AM EDT - 06/17/2025 11:59 PM EDT Hospital Encounter [facility] [address] [place] [phone] Elzbietaramonia-Iy Carmen subramanian MD Malignant neoplasm of tail of pancreas ([facility] V24, [facility] V28) (Primary Dx) Discharge Disposition: Home or Self Care 06/15/2025 8:18 AM EDT - 06/15/2025 11:59 PM EDT Hospital Encounter [facility] [address] [place] [phone] Elzbietaramonia-Iy Carmen subramanian MD Malignant neoplasm of tail of pancreas ([facility] V24, [facility] V28) (Primary Dx) Discharge Disposition: Home or Self Care 06/15/2025 Social Work [facility] [address] [place] [phone] Cy Salguero LMSW 06/07/2025 Telephone [facility] [address] [place] [phone] Emelina Glover, SHAWN from Last 3 Months Immunizations Immunization Administration [...] Comments Asthma 11/06/2017 DX:Asthma Asthma-COPD overlap syndrome ([facility] V24, [facility] V28) 11/06/2017 DX:Asthma-COPD overlap syndr ome (HCC) COPD (chronic obstructive pu lmonary disease) ([facility] V24, [facility] V28) 11/06/2017 DX:COPD (chronic o bstructive pulmonary disease) ([facility]) Gastroesophageal reflux 11/06/2017 DX:Gastr oesophageal reflux Hiatal hernia 11/06/2017 DX:Hiatal hernia History of lung cancer 11/06/2017 DX:Histor y of lung cancer; COMMENT: X2, s/p resection Hyperlipidemia 11/06/2017 DX:Hyperlipidemi a Pulmonary nodules 11/06/2017 DX:Pulmonary n odules Lung cancer ([facility] V24, [facility] V28) DX:Lung cancer (HCC) COPD (chronic obstructive pu lmonary disease) ([facility] V24, [facility] V28) DX:COPD (chronic o bstructive pulmonary disease) ([facility]) GERD (gastroesophageal reflux disease) DX:GERD (gastroesophageal reflux disease) Colon cancer ([facility] V24, [facility] V28) DX:Colon cancer (HCC) Diabetes mellitus ([facility] V 24, [facility] V28) DX:Diabetes mellitus (HCC) [place], old Heart disease Shortness of breath Liver [...] Info) Description 09/06/2025 8:30 AM EST Appointment [facility] [address] [phone] 09/13/2025 11:00 AM EST Office Visit [facility] H[facility] Oncology [address] [place] [phone] Carmen Felix MD [address] [place] [phone] Health Maintenance Due Date Last Done Comments [...] Test (HGBA1C) 07/22/2025 01/19/2025 Falls Risk Assessment 08/24/2026 08/24/2025 Diabetes: Annual GFR (Glomerular Filtration Rate) 09/03/2026 09/03/2025, 08/23/2025, 08/16/2025, Additional history exists Hypertension/CHF/CAD Annual BMP Blood Test 09/03/2026 09/03/2025, 08/23/2025, 08/16/2025, Additional history exists Cholesterol Screening (Lipid Panel) [...] this topic Medical Devices Implanted Type Area Oracle Sql Developer Device Identifier Shelf Expiration Date Model / Serial / Lot Port Pwr Slim Poly 6f Sandra Inte Attach - [id number] Implanted:Qty: 1 on 03/23/2025 by Blake Beaulieu MD at [facility] Central/Yaneth pheral Catheters and Ports Right: Chest Wall CR BARD PERIPHERAL [employer]ASC[employer] [id number] 11/13/2025 [id number] / / [id number] Procedures Procedure Name Priority Date/Time Associated Diagnosis [...] CMS/HCC V28) CBC WITH AUTO DIFFERENTIAL Routine 08/23/2025 10:04 [...] Maintenance Results * (ABNORMAL) CBC auto differential (09/03/2025 10:07 AM EST) Only the most recent of12 resultswithin the time period is included. WBC 4.3(L) 4.8 - 10.8 K/mcL LAB HEMETOLOGY METHOD 09/03/2025 12:52 PM [facility] RBC 4.10 3.80 - 4.80 M/mcL LAB HEMETOLOGY METHOD 09/03/2025 12:52 PM [facility] Hemoglobin 12.8 11.5 - 16.0 g/dL LAB HEMETOLOGY METHOD 09/03/2025 12:52 PM [facility] Hematocrit 38.9 35.0 - 47.0 % LAB HEMETOLOGY METHOD 09/03/2025 12:52 PM [facility] MCV 95.8 79.0 - 98.0 FL LAB HEMETOLOGY METHOD 09/03/2025 12:52 PM [facility] MCH 31.5 27.0 - 32.0 pcg LAB HEMETOLOGY METHOD 09/03/2025 12:52 PM [facility] MCHC 32.9 32.0 - 37.0 g/dL LAB HEMETOLOGY METHOD 09/03/2025 12:52 PM [facility] RDW 13.4 11.0 - 15.0 % LAB HEMETOLOGY METHOD 09/03/2025 12:52 PM [facility] Platelets 353 130 - 400 K/mcL LAB HEMETOLOGY METHOD 09/03/2025 12:52 PM [facility] MPV 10.8 7.0 - 11.0 FL LAB HEMETOLOGY METHOD 09/03/2025 12:52 PM [facility] NRBC 1.2(H) <1.0 % LAB HEMETOLOGY METHOD 09/03/2025 12:52 PM [facility] NRBC Absolute 0.05 <0.10 K/mcL LAB HEMETOLOGY METHOD 09/03/2025 12:52 PM [facility] Neutrophils Relative 51.1 % LAB HEMETOLOGY METHOD 09/03/2025 12:52 PM [facility] Lymphocytes Relative 32.9 % LAB HEMETOLOGY METHOD 09/03/2025 12:52 PM [facility] Monocytes Relative 12.7 % LAB HEMETOLOGY METHOD 09/03/2025 12:52 PM [facility] Eosinophils Relative 2.4 % LAB HEMETOLOGY METHOD 09/03/2025 12:52 PM [facility] Basophils Relative 0.7 % LAB HEMETOLOGY METHOD 09/03/2025 12:52 PM EST [facility] Immature Granulocytes Relative 0.2 % LAB HEMETOLOGY METHOD 09/03/2025 12:52 PM [facility] Neutrophils Absolute 2.17 1.50 - 7.00 K/mcL LAB HEMETOLOGY METHOD 09/03/2025 12:52 PM [facility] Lymphocytes Absolute 1.40 1.00 - 5.00 K/mcL LAB HEMETOLOGY METHOD 09/03/2025 12:52 PM EST [facility] Monocytes Absolute 0.54 0.20 - 1.00 K/mcL LAB HEMETOLOGY METHOD 09/03/2025 12:52 PM [facility] Eosinophils Absolute 0.10 0.00 - 0.50 K/mcL LAB HEMETOLOGY METHOD 09/03/2025 12:52 PM EST [facility] Basophils Absolute 0.03 0.00 - 0.20 K/mcL LAB HEMETOLOGY METHOD 09/03/2025 12:52 PM [facility] Immature Granulocytes Absolute 0.01 0.00 - 0.03 K/mcL LAB HEMETOLOGY METHOD 09/03/2025 12:52 PM [facility] Blood Venous blood specimen / Unknown Venipuncture / Unknown 09/03/2025 10:07 AM EST 09/03/2025 12:18 PM EST us Subramony Isidro STORY LAB BLOOD ORDERABLE S Final Result [facility] [address] [place] [address], * (ABNORMAL) Comprehensive metabolic panel (09/03/2025 10:07 AM EST) Only the most recent of12 resultswithin the time period is included. Sodium 142 133 - 145 mmol/L 09/03/2025 1:18 PM [facility] Potassium 4.3 3.5 - 5.5 mmol/L 09/03/2025 1:18 PM [facility] Chloride 104 96 - 110 mmol/L 09/03/2025 1:18 PM [facility] CO2 26 21 - 32 mmol/L 09/03/2025 1:18 PM [facility] Anion Gap 12(H) 3 - 11 09/03/2025 1:18 PM [facility] Glucose 254(H) 70 - 100 mg/dL 09/03/2025 1:18 PM [facility] BUN 17 5 - 25 mg/dL 09/03/2025 1:18 PM [facility] Creatinine 1.14(H) 0.50 - 1.10 mg/dL 09/03/2025 1:18 PM [facility] eGFR 50(L) >=60 mL/min/1. 73m2 09/03/2025 1:18 PM [facility] Comment:Calculation based on the Chronic Kidney Disease Epidemiology Collaboration (CKD-EPI) equation refit without adjustment for race. BUN/Creatinine Ratio 14.9 09/03/2025 1:18 PM [facility] Calcium 8.7 8.5 - 10.5 mg/dL 09/03/2025 1:18 PM [facility] AST (SGOT) 118(H) 10 - 42 unit/L 09/03/2025 1:18 PM [facility] Comment:Results verified by repeat testing ALT (SGPT) 114(H) 10 - 60 unit/L 09/03/2025 1:18 PM [facility] Comment:Results verified by repeat testing Alkaline Phosphatase 75 42 - 121 unit/L 09/03/2025 1:18 PM [facility] Total Protein 5.9(L) 6.0 - 8.0 g/dL 09/03/2025 1:18 PM EST [facility] Albumin 3.8 3.2 - 5.0 g/dL 09/03/2025 1:18 PM EST [facility] Total Bilirubin 0.8 0.0 - 1.4 mg/dL 09/03/2025 1:18 PM EST [facility] Blood Venous blood specimen / Unknown Venipuncture / Unknown 09/03/2025 10:07 AM EST 09/03/2025 12:19 PM EST Carmen Felix MD LAB BLOOD ORDERABLE S Final Result Performing Organization Address City/[facility]/ZIP Co de Phone Number [facility] [address] [place] [address], [place] [phone] * (ABNORMAL) Cancer antigen 19-9 (08/23/2025 10:04 AM EST) Only the most recent of3 resultswithin the time period is included. CA 19-9 71.9(H) <=35 U/mL 08/25/2025 10:57 AM EST [facility] Comment: The Siemens Advia Centaur CA199 Chemiluminescent Immunoassay is used. Results obtained with different assay methods or kits cannot be used interchangeably. Results cannot be interpreted as absolute evidence of the presence or absence of malignant disease. Test performed at [facility], [address], [place] [address] Sangita Sharma MD, PhD - Game Room Attendant Blood Venous blood specimen / Unknown Venipuncture / Unknown 08/23/2025 10:04 AM EST 08/23/2025 11:41 AM EST Carmen Felix MD LAB BLOOD ORDERABLE S Final Result [facility] [address] [place] [address] * XR Chest 2 Views (07/29/2025 2:27 [...] Signed Date: 07/29/2025 14:57 ET Workstation ID: [id number] Transcribed By: Self Edit Transcribed Date: 07/29/2025 [...] Signed Date: 07/29/2025 14:57 ET Workstation ID: [id number] Transcribed By: Self Edit Transcribed Date: 07/29/2025 14:56 ET Dianna ROSAS IMG XR PROCEDURES Final Resul t * (ABNORMAL) Manual differential (07/29/2025 1:18 PM EST) Only the most recent of3 resultswithin the time period is included. Neutrophils % 53.0 % LAB HEMETOLOGY METHOD 07/29/2025 2:22 PM [facility] Lymphocytes % 30.0 % LAB HEMETOLOGY METHOD 07/29/2025 2:22 PM [facility] Monocytes % 13.0 % LAB HEMETOLOGY METHOD 07/29/2025 2:22 PM [facility] Eosinophils % 3.0 % LAB HEMETOLOGY METHOD 07/29/2025 2:22 PM [facility] Basophils % 1.0 % LAB HEMETOLOGY METHOD 07/29/2025 2:22 PM [facility] Neutrophils Absolute Manual 2.12 1.50 - 7.00 K/mcL LAB HEMETOLOGY METHOD 07/29/2025 2:22 PM [facility] Lymphocytes Absolute 1.20 1.00 - 5.00 K/mcL LAB HEMETOLOGY METHOD 07/29/2025 2:22 PM [facility] Monocytes Absolute Manual 0.52 0.20 - 1.00 K/mcL LAB HEMETOLOGY METHOD 07/29/2025 2:22 PM [facility] Eosinophils Absolute Manual 0.12 0.00 - 0.50 K/mcL LAB HEMETOLOGY METHOD 07/29/2025 2:22 PM [facility] Basophils Absolute Manual 0.04 0.00 - 0.20 K/mcL LAB HEMETOLOGY METHOD 07/29/2025 2:22 PM [facility] Rbc Morphology Present(A ) Consistent with indices, Normal for [place] LAB HEMETOLOGY METHOD 07/29/2025 2:22 PM [facility] Platelet Morphology - WAM Normal Normal LAB HEMETOLOGY METHOD 07/29/2025 2:22 PM [facility] Ovalocytes Present 5 - 10%(A) (none) LAB HEMETOLOGY METHOD 07/29/2025 2:22 PM [facility] Schistocytes Present 1+(A) (none) 07/29/2025 2:22 PM EST [facility] Blood Venous blood specimen / Unknown Venipuncture / Unknown 07/29/2025 1:18 PM EST 07/29/2025 1:32 PM EST Carmen Felix MD LAB BLOOD ORDERABLE S Final Result [facility] [address] [place] [address], [place] [phone] * (ABNORMAL) Lipid panel with reflex to direct LDL (01/19/2025 3:51 AM EDT) Cholesterol 126 0 - 200 mg/dL LAB CHEMISTRY METHOD 01/19/2025 3:36 PM EDT [facility] Triglycerides 153(H) 0 - 150 mg/dL LAB CHEMISTRY METHOD 01/19/2025 3:36 PM EDT [facility] HDL 50 >=40 mg/dL LAB CHEMISTRY METHOD 01/19/2025 3:36 PM EDT [facility] LDL Calculated 45 0 - 100 mg/dL LAB CHEMISTRY METHOD 01/19/2025 3:36 PM EDT [facility] VLDL Cholesterol Russell 30.6 mg/dL LAB CHEMISTRY METHOD 01/19/2025 3:36 PM EDT [facility] Non HDL Chol. (LDL+VLDL) 76 <145 mg/dL LAB CHEMISTRY METHOD 01/19/2025 3:36 PM EDT [facility] Chol/HDL Ratio 2.5 0.0 - 4.4 LAB CHEMISTRY METHOD 01/19/2025 3:36 PM EDT [facility] Blood Venous blood specimen / Unknown Venipuncture / Unknown 01/19/2025 3:51 AM EDT 01/19/2025 4:08 AM EDT Annabelle ROSAS LAB BLOOD ORDERABLES Final Resul t Performing Organization Address [facility] Co de Phone Number [facility] [address] [place] [address], * (ABNORMAL) Hemoglobin A1c (01/19/2025 3:51 AM EDT) Hemoglobin A1C 8.9(H) <6.5 % LAB CHEMISTRY METHOD 01/19/2025 1:38 PM EDT [facility] Mean Bld Glu Estim. 209 mg/dL LAB CHEMISTRY METHOD 01/19/2025 1:38 PM EDT [facility] Blood Venous blood specimen / Unknown Venipuncture / Unknown 01/19/2025 3:51 AM EDT 01/19/2025 4:08 AM EDT Annabelle ROSAS LAB BLOOD ORDERABLES Final Resul t Performing Organization Address [facility] de Phone Number [facility] [address] [place] [address], [place] [phone] * COLONOSCOPY Anesthesia - MAC; [facility] ENDOSCOPY (12/17/2024 10:44 AM EDT) Anatomical Region Laterality Modality Endoscopy 12/17/2024 10:2 8 AM EDT Impressions 12/17/2024 10:46 AM EDT - Patent [id number] ileo-colonic anastomosis, characterized by healthy appearing mucosa. - Diverticulosis in the sigmoid colon. - Internal hemorrhoids. - The examination was otherwise normal. - No specimens collected. Recommendation: - Discharge patient to home. - Repeat colonoscopy in 5 years for surveillance. Narrative 12/17/2024 10:46 AM EDT [facility] Patient Name: Corin Alvarenga Procedure Date: [...] verified by the physician, the nurse, the convention worker and the electronics engineering technician in the pre-procedure area in the [...] normal. There was evidence of a prior [id number] ileo-colonic anastomosis in the ascending colon. This [...] neoplasm of large intestine CPT copyright 2020 [employer]. All rights reserved. The codes documented in this report are preliminary and upon patient relations director review may be revised to meet current compliance requirements. Valente Camarena MD 12/17/2024 10:46:21 AM This report has been signed electronically.Valente Camarena MD Number of Addenda: 0 Note Initiated On: 12/17/2024 10:28 AM Scope Withdrawal Time: 0 hours 6 minutes 55 seconds Scope In: 10:35:31 AM Scope Out: 10:45:39 AM Endoscopy Department at [facility] - [address] [place] [phone] Procedure Note Valente Camarena MD - 12/17/2024 [facility] GI Patient Name: Corin Alvarenga Procedure Date: [...] the physician, the nurse, theanesthetist and the electronics engineering technician in the pre-procedure area in the [...] normal. There was evidence of a prior nqhf-gv-rymk ileo-colonic anastomosis in the ascending colon.This was [...] malignantneoplasm of large intestine CPT copyright 2020 [employer]. All rights reserved. The codes documented in this report are preliminary and upon patient relations director reviewmay be revised to meet current compliance requirements. Valente Camarena MD 12/17/2024 10:46:21 AM This report has been signed electronically.Valente Camarena MD Number of Addenda: 0 Note Initiated On: 12/17/2024 10:28 AM Scope Withdrawal Time: 0 hours 6 minutes 55 seconds Scope In: 10:35:31 AM Scope Out: 10:45:39 AM Endoscopy Department at [facility] - [address] [place] [phone] IMPRESSION: - Patent rqzp-ae-umvy ileo-colonic anastomosis, characterized by healthy appearing mucosa. [...] currently active code status orders. Care Teams Casing Inspector Relationship Specialty Start Date End Date Jung Carranza MD [address] [place] [address] [address] [place], [place] PCP - General Internal Medicine 12/08/18
--- OUTSIDE RECORDS SUMMARY | 2025-09-03 15:52 | XMS_ITS | Encounter Summary ---
Author Organization [facility] Address [address] [place] [address] [address] [place] [address] Phone Care Team Providers Care Railway Track Worker Name Role Phone Hong Maddox MD Unavailable [phone] Pravin Landis MD Unavailable [phone] Johana Amador MD Unavailable [phone] Kym Carranza MD Primary Care Provide r Carmen Felix MD Unavailable [phone] Encounter Details Date Type Department Care Team (Late st Contact Info) Description 01/04/2022 Procedure Pass [facility] Endoscopy Department [address] [place] [address] Social History Tobacco Use Types Packs/Day Years [...] Description 12/28/2025 1:20 PM EDT Office Visit [facility] [address] [place] [address] 3rd Floor, [address] [place] [address] Prince Freitas MD 22 [facility], [address] [place] [address] [email or web address] documented as of this encounter Visit Diagnoses Not on filedocumented in this encounter Care Teams Railway Track Worker Relationship Specialty Start Date End Date Kym Carranza MD [address] [place] [address] 1 [place] [address] PCP - General Internal Medicine 12/22/21 Hong Maddox MD [address] [address] [email or web address] Historical LMR Provider 07/04/17 Pravin Landis MD [address] [place] [address] [email or web address] Primary Oncologist Medical Oncology 02/08/21 Johana Amador MD [address] [address] Referring Physician Gastroenterology 03/27/21 Carmen Felix MD [address] [place] [address] Ramos [email or web address] Medical Oncology 03/11/24 documented as of this encounter Additional Source Comments The information contained in this document represents components of the legal health record. It is not the complete legal health record.[facility]
--- OUTSIDE RECORDS SUMMARY | 2025-09-03 15:52 | XMS_ITS | Encounter Summary ---
Author Organization [facility] Address [address] [place] [address] Phone Care Team Providers Care Research Environmental Scientist Name Role Phone Evangelist Gabriel MD Unavailable [phone] Vignesh Farias MD Unavailable [phone] Dixon Quiñones NP Unavailable Hong Maddox MD Unavailable [phone] Kym Carranza MD Primary Care Provide r Self-Referred, Patient Unavailable Unavailab Pravin Leung MD Unavailable [phone] Johana Amador MD Unavailable [phone] Johana Amador MD Primary Care Provid er Kym Carranza MD Primary Care Provide r Carmen Felix MD Unavailable [phone] Encounter Details Date Type Department Care Team ([facility] st Contact Info) Description 12/15/2020 Telephone [facility] [address] [place] [address] Kendall Garcia MD, MPH [address] [facility]-3rd [place] [address] [email or web address] Social History Tobacco Use Types Packs/Day [...] Upcoming Encounters Date Type Department Care Team ([facility] st Contact Info) Description 12/28/2025 1:20 PM EDT Office Visit [facility] [address] [place] [address] 3rd Floor, [address] [place] [phone] Prince Freitas MD [address] [place] [address] [email or web address] documented as of this encounter Visit Diagnoses Not on filedocumented in this encounter Care Teams Research Environmental Scientist Relationship Specialty Start Date End Date Kym Carranza MD [address] [place] [address] PCP - General Internal Medicine 11/28/20 05/04/21 Johana Amador MD [address] [place] [address] PCP - General Gastroenterology 05/05/21 12/21/21 Kym Carranza MD [address] [place] [address] PCP - General Internal Medicine 12/22/21 Evangelist Gabriel MD [address] [place] [address], [address] [address] Historical LMR Provider 07/04/17 09/23/21 Vignesh Farias MD [address] [facility], [address] [place] [address] [email or web address] Historical LMR Provider 07/04/17 09/23/21 Dixon Quiñones, ELVIRA [address] [place] [address] 2[address]1 [place] [address] Historical LMR Provider 07/04/17 2 Hong Maddox MD [address] [address] [email or web address] Historical LMR Provider 07/04/17 Self-Referred, Patient Referring Physician 11/28/20 Pravin Landis MD [address] [place] [address] [email or web address] Primary Oncologist Medical Oncology 02/08/21 Johana Amador MD [address] [address] Referring Physician Gastroenterology 03/27/21 Carmen Felix MD 271 [place] [address] Ramos [email or web address] Medical Oncology 03/11/24 documented as of this encounter Additional Source Comments The information contained in this document represents components of the legal health record. It is not the complete legal health record.[facility]
--- OUTSIDE RECORDS SUMMARY | 2025-09-03 15:53 | XMS_ITS | Encounter Summary ---
Author Organization [facility] Address [address] [facility] [address] [place] [address] Phone Care Team Providers Care Exhibitions And Collections Manager Name Role Phone Hong Maddox MD Unavailable Pravin Landis MD Unavailable Johana Amador MD Unavailable [phone] Kym Carranza MD Primary Care Provide r Carmen Felix MD Unavailable [phone] Encounter Details Date Type Department Care Team (Late st Contact Info) Description 03/13/2022 Procedure Pass [facility], [address] [facility] [place], [place] [address] [facility], Floor [address]1 [place] [address] Social History Tobacco Use Types [...] Description 12/28/2025 1:20 PM EDT Office Visit [facility] [address] [place] [address] 3rd Floor, [address] [place] [address] Prince Freitas MD 22 [facility], [address] [place] [address] [email or web address] documented as of this encounter Visit Diagnoses Not on filedocumented in this encounter Care Teams Exhibitions And Collections Manager Relationship Specialty Start Date End Date Kym Carranza MD [address] [place] [address] PCP - General Internal Medicine 12/22/21 Hong Maddox MD [address] [place] [address] [email or web address] Historical LMR Provider 07/04/17 Pravin Landis MD [address] [place] [address] [email or web address] Primary Oncologist Medical Oncology 02/08/21 Johana Amador MD [address] [place] [address] Referring Physician Gastroenterology 03/27/21 Carmen Felix MD [address] [place] [phone] Ramos Medical Oncology 03/11/24 documented as of this encounter Additional Source Comments The information contained in this document represents components of the legal health record. It is not the complete legal health record.[facility]
--- OUTSIDE RECORDS SUMMARY | 2025-09-03 15:53 | XMS_ITS | Encounter Summary ---
Author Organization [facility] Address [address] [facility] [address] [place] [address] Phone Care Team Providers Care Shank Cementer Hand Name Role Phone Hong Maddox MD Unavailable [phone] Pravin Landis MD Unavailable [phone] Johana Amador MD Unavailable [phone] Kym Carranza MD Primary Care Provide r Carmen Felix MD Unavailable [phone] Encounter Details Date Type Department Care Team (Late st Contact Info) Description 05/28/2023 Procedure Pass [facility] [place] [facility] [place] [address] [address] Social History Tobacco Use Types [...] Description 12/28/2025 1:20 PM EDT Office Visit [facility] [address] [place] [address] 3rd Floor, [address] [place] [address] Prince Freitas MD [address] [place] [address] [email or web address] documented as of this encounter Visit Diagnoses Not on filedocumented in this encounter Care Teams Shank Cementer Hand Relationship Specialty Start Date End Date Kym Carranza MD [address] [place] [address] PCP - General Internal Medicine 12/22/21 Hong Maddox MD [address] [address] [email or web address] Historical LMR Provider 07/04/17 Pravin Landis MD [address] [place] [address] [email or web address] Primary Oncologist Medical Oncology 02/08/21 Johana Amador MD [address] [address] Referring Physician Gastroenterology 03/27/21 Carmen Felix MD 271 [place] [address] Ramos [email or web address] Medical Oncology 03/11/24 documented as of this encounter Additional Source Comments The information contained in this document represents components of the legal health record. It is not the complete legal health record.[facility]
--- OUTSIDE RECORDS SUMMARY | 2025-09-03 15:53 | XMS_ITS | Encounter Summary ---
Author Organization [facility] Address [address] [facility] [address] [place] [address] Phone Care Team Providers Care Engineering Coordinator Name Role Phone Hong Maddox MD Unavailable [phone] Pravin Landis MD Unavailable [phone] Johana Amador MD Unavailable [phone] Kym Carranza MD Primary Care Provide r Carmen Felix MD Unavailable [phone] Encounter Details Date Type Department Care Team (Late st Contact Info) Description 12/29/2024 Procedure Pass [facility] [address] [place] [id number] Social History Tobacco Use Types Packs/Day Years [...] Description 12/28/2025 1:20 PM EDT Office Visit [facility] [address] [place] [address] 3rd Floor, [address] [place] [address] Prince Freitas MD [address] [place] [address], [address] [place] [address] [email or web address] documented as of this encounter Visit Diagnoses Not on filedocumented in this encounter Care Teams Engineering Coordinator Relationship Specialty Start Date End Date Kym Carranza MD [address] [place] [address] PCP - General Internal Medicine 12/22/21 Hong Maddox MD [address] [place] [address] [email or web address] Historical LMR Provider 07/04/17 Pravin Landis MD [address] [place] [address] [email or web address] Primary Oncologist Medical Oncology 02/08/21 Johana Amador MD [address] [address] Referring Physician Gastroenterology 03/27/21 Carmen Felix MD 271 [place] [phone] Ramos [email or web address] Medical Oncology 03/11/24 documented as of this encounter Additional Source Comments The information contained in this document represents components of the legal health record. It is not the complete legal health record.[facility]
--- OUTSIDE RECORDS SUMMARY | 2025-09-03 15:53 | XMS_ITS | Encounter Summary ---
Author Organization [facility] Address [address] [place] [address] Phone Care Team Providers Care Pension Manager Name Role Phone Evangelist Gabriel MD Unavailable Vignesh Farias MD Unavailable [phone] Dixon Quiñones NP Unavailable [phone] Hong Maddox MD Unavailable [phone] Kym Carranza MD Primary Care Provide r Self-Referred, Patient Unavailable Unavailab Pravin Leung MD Unavailable [phone] Johana Amador MD Unavailable [phone] Johana Amador MD Primary Care Provid er Kym Carranza MD Primary Care Provide r Carmen Felix MD Unavailable [phone] Encounter Details Date Type Department Care Team (Late st Contact Info) Description 02/10/2021 Ancillary Orders [facility],Outside Imaging 30 [place], [place] [phone] System, Provider Not In, [facility] [employer] [address] [address] Social History Tobacco Use Types Packs/Day Years [...] Description 12/28/2025 1:20 PM EDT Office Visit [facility] [address] [place] [address] 3rd Floor, [address] [place] [address] Prince Freitas MD [address] [facility], [address] [place] [address] [email or web address] documented as of this encounter Results * CT Abdomen/Pelvis Outside (No Interpretation) (12/02/2020 12:00 AM EDT) Narrative SYSTEMGENERATED, DOCUMENTATION - 02/10/2021 10:32 AM EDT This study is for PACS storage only and not for interpretation. us Provider Not In System PhD IMG OUTSIDE IMAGING W /OUT INTERPRETATION Final Result documented in this encounter Visit Diagnoses Not on filedocumented in this encounter Care Teams Pension Manager Relationship Specialty Start Date End Date Kym Carranza MD [address] [place] [address] 1 [place] [address] PCP - General Internal Medicine 11/28/20 05/04/21 Johana Amador MD [address] [place] [address] PCP - General Gastroenterology 05/05/21 12/21/21 Kym Carranza MD [address] [place] [address] [address] [place] [address] PCP - General Internal Medicine 12/22/21 Evangelist Gabriel MD [address] [facility], [address] [address] [email or web address] Historical LMR Provider 07/04/17 09/23/21 Vignesh Farias MD [address] [place] [address] [email or web address] Historical LMR Provider 07/04/17 09/23/21 Dixon Quiñones, ELVIRA [address] [place] [address] [address] Historical LMR Provider 07/04/17 2 Hong aMddox MD [address] [place] [address] [email or web address] Historical LMR Provider 07/04/17 Self-Referred, Patient Referring Physician 11/28/20 Pravin Landis MD [address] [place] [address] [email or web address] Primary Oncologist Medical Oncology 02/08/21 Johana Amador MD [address] [address] Referring Physician Gastroenterology 03/27/21 Carmen Felix MD [address] [place] [phone] Ramos [email or web address] Medical Oncology 03/11/24 documented as of this encounter Additional Source Comments The information contained in this document represents components of the legal health record. It is not the complete legal health record.[facility]
--- OUTSIDE RECORDS SUMMARY | 2025-09-03 15:53 | XMS_ITS | Encounter Summary ---
Author Organization [facility] Address [address] [place] [address] Phone Care Team Providers Care Reel Man Name Role Phone Evangelist Gabriel MD Unavailable Vignesh Farias MD Unavailable [phone] Dixon Quiñones NP Unavailable Hong Maddox MD Unavailable [phone] Pravin Landis MD Unavailable Johana Amador MD Unavailable [phone] Johana Amador MD Primary Care Provid er Kym Carranza MD Primary Care Provide r Carmen Felix MD Unavailable [phone] Encounter Details Date Type Department Care Team (Late st Contact Info) Description 08/29/[address] [address] Social History Tobacco Use Types Packs/Day Years [...] 12/28/2025 1:20 PM EDT Office Visit [facility] [address] [place] [address] 3rd Floor, [address] [place] [address] Prince Freitas MD [address] [place] [address] documented as of this encounter Visit Diagnoses Not on filedocumented in this encounter Care Teams Reel Man Relationship Specialty Start Date End Date Johana Amador MD [address] [place] [address] PCP - General Gastroenterology 05/05/21 12/21/21 Kym Carranza MD [address] [place] [address] PCP - General Internal Medicine 12/22/21 Evangelist Gabriel MD [address] [place] [address] Historical LMR Provider 07/04/17 09/23/21 Vignesh Farias MD [address] [place] [address] Historical LMR Provider 07/04/17 09/23/21 Dixon Quiñones NP [address] [place] [address] [address] Historical LMR Provider 07/04/17 2 Hong Maddox MD 10 [facility] 1 [place] [address] [email or web address] Historical LMR Provider 07/04/17 Pravin Landis MD [address] [place] [address] [email or web address] Primary Oncologist Medical Oncology 02/08/21 Johana Amador MD [address] [place] [address] Referring Physician Gastroenterology 03/27/21 Carmen Felix MD [address] [place] [phone] Ramos [email or web address] Medical Oncology 03/11/24 documented as of this encounter Additional Source Comments The information contained in this document represents components of the legal health record. It is not the complete legal health record.[facility]
--- OUTSIDE RECORDS SUMMARY | 2025-09-03 15:53 | XMS_ITS | Encounter Summary ---
Author Organization [facility] Address [address] [place] [address] Phone Care Team Providers Care Plodding Machine Operator Name Role Phone Evangelist Gabriel MD Unavailable [phone] Vignesh Farias MD Unavailable [phone] Dixon Quiñones NP Unavailable [phone] Hong Maddox MD Unavailable [phone] Kym Carranza MD Primary Care Provide r Self-Referred, Patient Unavailable Unavailab Pravin Leung MD Unavailable [phone] Johana Amador MD Unavailable [phone] Johana Amador MD Primary Care Provid er Kym Carranza MD Primary Care Provide r Carmen Felix MD Unavailable [phone] Encounter Details Date Type Department Care Team (Late st Contact Info) Description 02/21/2021 Procedure Pass [facility], Ct Scan - [address] [id number] Social History Tobacco Use Types Packs/Day Years [...] Description 12/28/2025 1:20 PM EDT Office Visit [facility] [address] [place] [address] 3rd Floor, [address] [place] [address] Prince Freitas MD [address] [place] [address] documented as of this encounter Visit Diagnoses Not on filedocumented in this encounter Care Teams Plodding Machine Operator Relationship Specialty Start Date End Date Kym Carranza MD [address] [place] [address] PCP - General Internal Medicine 11/28/20 05/04/21 Johana Amador MD [address] [place] [address] PCP - General Gastroenterology 05/05/21 12/21/21 Kym Carranza MD [address] [place] [address] PCP - General Internal Medicine 12/22/21 Evangelist Gabriel MD [address] [place] [address] Historical LMR Provider 07/04/17 09/23/21 Vignesh Farias MD [address] [place] [address] [email or web address] Historical LMR Provider 07/04/17 09/23/21 Dixon Quiñones NP [address] [place] [address] [phone] Historical LMR Provider 07/04/17 2 Hong Maddox MD [address] [place] [address] [email or web address] Historical LMR Provider 07/04/17 Self-Referred, Patient Referring Physician 11/28/20 Pravin Landis MD [address] [place] [address] [email or web address] Primary Oncologist Medical Oncology 02/08/21 Johana Amador MD [address] [address] Referring Physician Gastroenterology 03/27/21 Carmen Felix MD 271 [place] [phone] Ramos [email or web address] Medical Oncology 03/11/24 documented as of this encounter Additional Source Comments The information contained in this document represents components of the legal health record. It is not the complete legal health record.[facility]
--- OUTSIDE RECORDS SUMMARY | 2025-09-03 15:53 | XMS_ITS | Clinical Summary ---
Author Organization [facility] Address [address] [address] Phone Care Team Providers Care Workforce Consultant Name Role Phone Hong Maddox MD Unavailable [phone] Pravin Landis MD Unavailable [phone] Johana Amador MD Unavailable [phone] Kym Carranza MD Primary Care Provide r Carmen Felix MD Unavailable [phone] Allergies Active Allergy Reactions Criticality Noted Date [...] (COPD) 09/2020 Coronary artery disease invo lving [place] coronary artery of [place] heart without angina pectoris 11/11/2017 Overview (04/12/2020): 2000 PCI BMS LAD 2001 CATH EF 40 NONOBST 2016 NUKE ANT MN; EF 40-45 07/2019 ECHO EF 50-55%; DD1; 11/2019 NUKE ANT MN EF 41% Assessment & Plan (09/13/2020 2:48 [...] EST): As of the echocardiogram done at [facility] this is unchanged. Ejection fraction remains [...] Care Team Description 07/06/2025 Refill [facility] [address], [address] [place] [address] Mary Anne Nixon CNP Medication Refill 06/28/2025 1:40 PM EDT Office Visit [facility] [address], [address] [place] [address] Prince Freitas MD Coronary artery disease of [place] artery of [place] heart with stable angina pectoris (Primary Dx); Essential hypertension; Hyperlipidemia, unspecified hyperlipidemia type 06/14/2025 12:26 PM EDT - 06/14/2025 11:59 PM EDT Hospital Encounter [facility] [address] [place] [address] Prince Freitas MD Discharge Disposition: Home or Self Care 12/29/2024 Procedure Pass [facility] [place] [facility] [address] [place] [address] from Last 3 Months Family History Medical [...] Description 12/28/2025 1:20 PM EDT Office Visit [facility] [address] [place] [address] [address]rd Floor, [address] [place], [place] [phone] Prince Freitas MD [address] [facility], [address] [place] [address] [email or web address] Health Maintenance Due Date Last Done Comments [...] this topic Medical Devices Implanted Type Area Linoleum Floor Layer Device Identifier Shelf Expiration Date Model / [...] MD, MPH - 01/04/2022 2:42 PM EDT [facility] Gastroenterology Patient Name: Corin Alvarenga Procedure [...] HEMOGLOBIN A1C 7.7(H) 4.2 - 5.6 % [facility] Comment: HbA1c levels 5.7-6.4% [...] BKR ORDERABLES Final Result Performing Organization Address City/State/[facility] Co de Phone Number [facility] [address] [place] [address] from Last 3 Months or Most Recently Relevant to Health Maintenance Insurance [facility] MEDICARE REPLACEMENT [facility] MEDICARE REPLACEMENT [facility] MEDICARE REPLACEMENT [facility] MEDICARE REPLACEMENT [facility] MEDICARE REPLACEMENT [facility] MEDICARE REPLACEMENT Advance Directives For more information, please contact: [phone] (9AM - 5PM [facility], Saturday-Saturday) * Full Code (Latest Code Status on File) Date Activated Date Inactivated Comments 12/20/2020 6:12 PM Question Answer Comments Code Status Confirmed With: Patient * Full Code Date Activated Date Inactivated Comments 12/20/2020 10:44 AM 12/20/2020 6:12 PM Question Answer Comments Code Status Confirmed With: Patient Care Teams Workforce Consultant Relationship Specialty Start Date End Date Kym Carranza MD [address] [place] [address] PCP - General Internal Medicine 12/22/21 Hong Maddox MD [address] [place] [address] [email or web address] Historical LMR Provider 07/04/17 Pravin Landis MD [address] [place] [address] [email or web address] Primary Oncologist Medical Oncology 02/08/21 Johana Amador MD [address] [place] [address] Referring Physician Gastroenterology 03/27/21 Carmen Felix MD [address] [place] [phone] Ramos [email or web address] Medical Oncology 03/11/24 Additional Source Comments The information contained in this document represents components of the legal health record. It is not the complete legal health record.[facility]
--- OUTSIDE RECORDS SUMMARY | 2025-09-03 15:53 | XMS_ITS | Encounter Summary ---
Author Organization [facility] Address [address] [facility] [address] [place] [address] Phone Care Team Providers Care Occupational Therapy Asst Name Role Phone Hong Maddox MD Unavailable [phone] Pravin Landis MD Unavailable Johana Amador MD Unavailable [phone] Kym Carranza MD Primary Care Provide r Carmen Felix MD Unavailable [phone] Encounter Details Date Type Department Care Team (Late st Contact Info) Description 05/28/2023 Procedure Pass [facility] [place] [address] [address] Social History Tobacco Use Types [...] Description 12/28/2025 1:20 PM EDT Office Visit [facility] [address] [place] [address] 3rd Floor, [address] [place] [address] Prince Freitas MD [address] [place] [address] [email or web address] documented as of this encounter Visit Diagnoses Not on filedocumented in this encounter Care Teams Occupational Therapy Asst Relationship Specialty Start Date End Date Kym Carranza MD [address] [place] [address] PCP - General Internal Medicine 12/22/21 Hong Maddox MD [address] [address] [email or web address] Historical LMR Provider 07/04/17 Pravin Landis MD [address] [place] [address] [email or web address] Primary Oncologist Medical Oncology 02/08/21 Johana Amador MD [address] [address] Referring Physician Gastroenterology 03/27/21 Carmen Felix MD [address] [place] [phone] Ramos [email or web address] Medical Oncology 03/11/24 documented as of this encounter Additional Source Comments The information contained in this document represents components of the legal health record. It is not the complete legal health record.[facility]
--- OUTSIDE RECORDS SUMMARY | 2025-09-03 15:53 | XMS_ITS | Encounter Summary ---
Author Organization [facility] Address [address] [place] [address] Phone Care Team Providers Care Waitstaff Captain Name Role Phone Evangelist Gabriel MD Unavailable Vignesh Farias MD Unavailable [phone] Dixon Quiñones NP Unavailable Hong Maddox MD Unavailable [phone] Pravin Landis MD Unavailable Johana Amador MD Unavailable [phone] Johana Amador MD Primary Care Provid er Kym Carranza MD Primary Care Provide r Carmen Felix MD Unavailable [phone] Encounter Details Date Type Department Care Team (Late st Contact Info) Description 08/29/2021 Procedure Pass [address] [address] Social History Tobacco Use Types Packs/Day Years [...] 12/28/2025 1:20 PM EDT Office Visit [facility] [address] [place] [address] [address]rd Floor, [address] [place] [address] Prince Freitas MD [address] [place] [address] documented as of this encounter Visit Diagnoses Not on filedocumented in this encounter Care Teams Waitstaff Captain Relationship Specialty Start Date End Date Johana Amador MD [address] [place] [address] PCP - General Gastroenterology 05/05/21 12/21/21 Kym Carranza MD [address] [place] [address] PCP - General Internal Medicine 12/22/21 Evangelist Gabriel MD [address] [place] [address] Historical LMR Provider 07/04/17 09/23/21 Vignesh Farias MD [address] [place] [address] Historical LMR Provider 07/04/17 09/23/21 Dixon Quiñones NP [address] [place] [address] [phone] Historical LMR Provider 07/04/17 2 Hong Maddox MD 10 [facility] [address] [place] [address] .[email or web address] Historical LMR Provider 07/04/17 Pravin Landis MD [address] [place] [address] [email or web address] Primary Oncologist Medical Oncology 02/08/21 Johana Amador MD [address] [place] [address] Referring Physician Gastroenterology 03/27/21 Carmen Felix MD [address] [place] [phone] Ramos [email or web address] Medical Oncology 03/11/24 documented as of this encounter Additional Source Comments The information contained in this document represents components of the legal health record. It is not the complete legal health record.[facility]
--- OUTSIDE RECORDS SUMMARY | 2025-09-03 15:53 | XMS_ITS | Encounter Summary ---
Author Organization [facility] Address [address] [place] [address] Phone Care Team Providers Care Postdoctoral Scholar Name Role Phone Evangelist Gabriel MD Unavailable [phone] Vignesh Farias MD Unavailable Dixon Quiñones NP Unavailable [phone] Hong Maddox MD Unavailable [phone] Kym Carranza MD Primary Care Provide r Self-Referred, Patient Unavailable Unavailab Pravin Leung MD Unavailable [phone] Johana Amador MD Unavailable [phone] Johana Amador MD Primary Care Provid er Kym Carranza MD Primary Care Provide r Carmen Felix MD Unavailable [phone] Encounter Details Date Type Department Care Team (Late st Contact Info) Description 02/06/2021 Procedure Pass [facility], [address] [phone] Social History Tobacco Use Types Packs/Day Years [...] Description 12/28/2025 1:20 PM EDT Office Visit [facility] [address] [place] [address] [address]rd [facility], [address] [place] [address] Prince Freitas MD [address] [place] [address] [email or web address] documented as of this encounter Visit Diagnoses Not on filedocumented in this encounter Care Teams Postdoctoral Scholar Relationship Specialty Start Date End Date Kym Carranza MD [address] [place] [address] PCP - General Internal Medicine 11/28/20 05/04/21 Johana Amador MD [address] [place] [address] PCP - General Gastroenterology 05/05/21 12/21/21 Kym Carranza MD [address] [place] [address] PCP - General Internal Medicine 12/22/21 Evangelist Gabriel MD [address] [place] [address] [email or web address] Historical LMR Provider 07/04/17 09/23/21 Vignesh Farias MD [address] [place] [address] [email or web address] Historical LMR Provider 07/04/17 09/23/21 Dixon Quiñones, ELVIRA [address] [place] [address] [address] Historical LMR Provider 07/04/17 2 Hong Maddox MD [address] [place] [address] [email or web address] Historical LMR Provider 07/04/17 Self-Referred, Patient Referring Physician 11/28/20 Pravin Landis MD [address] [place] [address] [email or web address] Primary Oncologist Medical Oncology 02/08/21 Johana Amador MD [address] [place] [address] Referring Physician Gastroenterology 03/27/21 Carmen Felix MD [address] [place] [phone] Ramos [email or web address] Medical Oncology 03/11/24 documented as of this encounter Additional Source Comments The information contained in this document represents components of the legal health record. It is not the complete legal health record.[facility]
== END 2025-09-03 15:13 | disposition home or self-care (01) ==
LOC: HO.ENCR 14:24
PROVIDERS: PCP Internal Medicine; Visit Provider Physician Assistant Medical
DX: E11.21 Type 2 diabetes mellitus with diabetic nephropathy (principal); C25.9 Malignant neoplasm of pancreas, unspecified

== ENCOUNTER → 2025-09-03 14:23 | Outpatient (BNVA) | payer OTHER, SELFPAY | PROVIDERS: PCP Internal Medicine; Visit Provider Physician Assistant Medical | DX: E11.21 Type 2 diabetes mellitus with diabetic nephropathy (principal); C25.9 Malignant neoplasm of pancreas, unspecified; Z79.4 Long term (current) use of insulin | CPT/HCPCS: 82947; 83036 ==